=== PATIENT | female | born 1975 | race Caucasian/White ===

== ENCOUNTER 2024-02-07 12:44 | Inpatient (IN) ==
--- NOTE | 2024-02-07 13:26 | Emergency Department Note ---
History of Present Illness General Chief complaint: Shortness of Breath/Dyspnea Stated complaint: SOB, CANCER DOC TOLD HER TO COME Time Seen by Provider: 02/07/24 13:11 History of Present Illness This is a 48-year-old female with history of stage IV lung cancer diagnosed a few months ago that presents to the emergency department via private vehicle with complaints of "dyspnea". She was referred by her oncology office. The patient notes that over the past 2 weeks she has had significant exertional dyspnea. Minimal to none at rest. She states that she follows with Dr. Muñoz, with [facility] [address] here in [place]. She currently is undergoing chemotherapy, last of which was a few weeks ago. She denies any chest pain. No fevers or chills. She notes chronic cough but nothing new. No hemoptysis. She also notes some mild swelling of the face and some increased tearing from the eyes. No purulence. Home Medications Medication Instructions Recorded Confirmed Type albuterol sulfate 90 mcg/actuation 2 inh inhalation Q4H PRN SOB 02/07/24 02/07/24 History aerosol inhaler fluticasone fur. 200 mcg-umeclid 1 inh inhalation QAM 02/07/24 02/07/24 History 62.5 mcg-vilant 25 mcg inhalat.powder (Trelegy Ellipta) folic acid 1 mg tablet 1 mg PO DAILY 02/07/24 02/07/24 History lamotrigine 100 mg tablet 100 mg PO BID 02/07/24 02/07/24 History olanzapine 20 mg-samidorphan 10 mg 1 tab PO HS 02/07/24 02/07/24 History tablet (Lybalvi) pantoprazole 40 mg tablet,delayed 40 mg PO DAILY 02/07/24 02/07/24 History release Allergies Allergy/AdvReac Type Severity Reaction Status Date / Time No Known Allergies Allergy Unverified 04/14/11 19:38 Past Med/Surg History Problem List (Updated 02/07/24 @ 21:09 by Ricardo Werner PA-C) Pneumonia (Acute) Sinus tachycardia (Acute) Symptomatic anemia (Acute) Tobacco use GERD (gastroesophageal reflux disease) Bipolar 1 disorder HLD (hyperlipidemia) Metastatic primary lung cancer (Acute) Hypokalemia (Acute) Pancytopenia (Acute) Surgical History (Updated 02/07/24 @ 15:46 by Kirsty Guevara PA-C) History of cholecystectomy History of bronchoscopy 11/28/23 Family History (Updated 02/07/24 @ 15:47 by Kirsty Guevara PA-C) Grandmother (Maternal) Breast cancer Other Dyslipidemia Hypertension Social History Smoking Status: Former smoker Feels Safe at Home: Yes Review of Systems A total of 10 systems reviewed and were otherwise negative Physical Exam Vital Signs Vital Signs - 24 hr 02/07/24 12:46 02/07/24 13:08 02/07/24 13:24 Temperature 36.5 C Temperature Source Temporal Artery Scan Pulse Rate 132 H 117 H 115 H Pulse Rate from SpO2 Sensor 115 H Pulse Rhythm Regular Pulse Strength Normal Respiratory Rate 20 17 Respiratory Effort / Characteristics Non-Labored Spontaneous Respiratory Depth Normal Blood Pressure 115/63 Blood Pressure Mean 80 Blood Pressure Position Sitting Pulse Oximetry 94 94 Oxygen Delivery Method Room Air Sepsis Recent Fever Within 48 Hours No Sepsis New/Unexplained Change in Mental Status N/A Sepsis Action Taken by Nursing No Action Required 02/07/24 13:27 02/07/24 13:30 02/07/24 13:30 Temperature Temperature Source Pulse Rate 113 H Pulse Rate from SpO2 Sensor Pulse Rhythm Regular Pulse Strength Respiratory Rate Respiratory Effort / Characteristics Respiratory Depth Blood Pressure 111/70 Blood Pressure Mean 88 Blood Pressure Position Pulse Oximetry 94 93 Oxygen Delivery Method Room Air Room Air Sepsis Recent Fever Within 48 Hours Sepsis New/Unexplained Change in Mental Status Sepsis Action Taken by Nursing 02/07/24 13:39 02/07/24 13:48 02/07/24 13:57 Temperature Temperature Source Pulse Rate 116 H 109 H 113 H Pulse Rate from SpO2 Sensor 116 H 109 H 113 H Pulse Rhythm Pulse Strength Respiratory Rate 19 24 24 Respiratory Effort / Characteristics Respiratory Depth Blood Pressure Blood Pressure Mean Blood Pressure Position Pulse Oximetry 93 92 93 Oxygen Delivery Method Sepsis Recent Fever Within 48 Hours Sepsis New/Unexplained Change in Mental Status Sepsis Action Taken by Nursing 02/07/24 14:03 02/07/24 15:03 Temperature Temperature Source Pulse Rate 109 H Pulse Rate from SpO2 Sensor 110 H 111 H Pulse Rhythm Pulse Strength Respiratory Rate 17 Respiratory Effort / Characteristics Respiratory Depth Blood Pressure Blood Pressure Mean Blood Pressure Position Pulse Oximetry 94 93 Oxygen Delivery Method Sepsis Recent Fever Within 48 Hours Sepsis New/Unexplained Change in Mental Status Sepsis Action Taken by Nursing VITAL SIGNS - Vital signs and nursing notes were reviewed. Tachycardic, otherwise stable and afebrile. GENERAL -48-year-old female appearing her stated age who is in no acute distress. Communicates well with provider and answers questions appropriately. SKIN - Without rashes. No meningeal or petechial rash. Mild edema to the face. HEAD - NC/AT. EYES - PERRL with EOMI bilaterally. Sclera anicteric. EARS - No deformities of external structures noted on gross examination bilaterally. External auditory canals without discharge or otorrhea. Tympanic membranes pearly rayo without retraction or bulging. No fluid or purulent material visualized behind the TM. Handle of malleus, umbo, cone of light, pars tensa/flaccid all easily visualized. NOSE - Midline and without cyanosis. No epistaxis or purulent drainage noted. Septum midline without deviation or septal hematoma noted. MOUTH/OROPHARYNX - Without perioral cyanosis. Buccal mucosa pink and moist and without leukoplakia. Tongue midline with equal elevation of palate bilaterally. No tonsillar hypertrophy, erythema, or exudates noted. Good dentition noted. NECK - Neck with FROM. Supple to palpation. No lymphadenopathy noted. No nuchal rigidity. LUNGS -no wheezes or crackles. Mild decreased lung sounds in the basal regions. CARDIAC - Tachycardic ABDOMEN - Abdominal contour normal without pulsations or visible masses. BS normoactive all four quadrants. No tenderness, palpable masses, hepatosplenomegaly, or ascites noted. EXTREMITIES - No clubbing or peripheral cyanosis. +5/5 strength noted in UE/LE bilaterally. NEUROLOGIC - Cranial nerves grossly intact. PSYCH -alert, oriented Course Administered Medications Discontinued Medications Azithromycin (Azithromycin 250 Mg Tab) 500 mg PO NOW ONE Stop: 02/07/24 16:16 Last Admin: 02/07/24 16:56 Dose: 500 mg Documented By: ERI Cefepime HCl (Maxipime 2000mg) 2,000 mg in 20 mls @ 5 mls/min IV NOW STA; Protocol Stop: 02/07/24 14:38 Last Admin: 02/07/24 15:13 Dose: 5 mls/min Documented By: ERI Ioversol (Optiray 320 125ml) 119 ml IV ONCE ONE Stop: 02/07/24 14:13 Last Admin: 02/07/24 14:12 Dose: 119 ml Documented By: EDK Potassium Chloride (Potassium Chloride Crtab 20 Meq Tabcr) 40 meq PO NOW STA Stop: 02/07/24 16:16 Last Admin: 02/07/24 16:55 Dose: 40 meq Documented By: ERI Medical Decision Making Laboratory Data 02/07/24 12:52 02/07/24 12:52 Lab Results 02/07/24 02/07/24 02/07/24 Range/Units 12:52 13:30 13:35 WBC 2.89 L (4.8-10.8) K/ul RBC 2.17 L (4.20-5.40) M/uL Hgb 7.2 L (12.0-16.0) g/dl Hct 22.0 L (37.0-47.0) % MCV 101.4 H (80.0-100.0) fL MCH 33.2 (25.0-34.0) pg MCHC 32.7 (32.0-36.0) g/dL RDW Std Deviation 57.0 H (36.4-46.3) fL RDW Coeff of Connor 16.0 H (11.5-14.5) % Plt Count 86 L (130-400) K/uL MPV 11.1 (9.4-12.4) fL Immature Gran % (Auto) 0.7 % Neut % (Auto) 21.8 % Lymph % (Auto) 41.9 % Person % (Auto) 23.9 % Eos % (Auto) 11.4 % Baso % (Auto) 0.3 % Neut # (Auto) 0.63 L* (1.40-6.50) K/uL Lymph # (Auto) 1.21 (1.20-3.40) K/uL Person # (Auto) 0.69 H (0.11-0.59) K/uL Eos # (Auto) 0.33 (0.00-0.50) K/uL Baso # (Auto) 0.01 (0.00-0.20) K/uL Immature Gran # (Auto) 0.02 (0.01-0.20) K/uL Polychromasia 1+ Anisocytosis Present PT 11.7 (9.0-12.0) Seconds INR 1.1 (0.9-1.1) APTT 26 (21-31) Seconds PTT Ratio 1.0 Sodium 137 (136-145) mmol/L Potassium 3.4 L (3.5-5.1) mmol/L Chloride 97 L (98-107) mmol/L Carbon Dioxide 30 (21-32) mmol/L Anion Gap 10 (3-11) BUN 8 (6-23) mg/dl Creatinine 1.06 (0.6-1.2) mg/dl Est Cr Clr Drug Dosing 56.8 ml/min eGFR 65.20 BUN/Creatinine Ratio 7.5 L (10-20) Glucose 123 H (70-99(Fasting)) mg/dl Lactate 1.3 (0.4-2.0) mmol/L Calcium 9.0 (8.6-10.3) mg/dl Magnesium 1.8 (1.7-2.4) mg/dl Total Bilirubin 0.7 (0.2-1.0) mg/dl AST 31 (13-39) U/L ALT 32 (7-52) U/L Alkaline Phosphatase 89 (34-104) U/L Troponin I High Sens 9.7 (0-14) pg/ml Total Protein 6.9 (6.0-8.3) gm/dl Albumin 3.5 (3.4-5.0) gm/dl Globulin 3.4 (2.5-4.0) gm/dl Albumin/Globulin Ratio 1.0 (0.9-2) Procalcitonin 25.30 H (0-0.5) ng/ml TSH 3.254 (0.300-4.500) uIu/ml HCG, Qual Negative (Negative) Adenovirus (PCR) Not Detected (NotDetected) B. pertussis DNA (PCR) Not Detected (NotDetected) B.parapertussis DNA PCR Not Detected (NotDetected) C. pneumoniae DNA (PCR) Not Detected (NotDetected) Coronavirus OC43 (PCR) Not Detected (NotDetected) Coronavirus HKU1 (PCR) Not Detected (NotDetected) Coronavirus 229E (PCR) Not Detected (NotDetected) SARS-CoV-2 (PCR) Not Detected (NotDetected) Coronavirus NL63 (PCR) Not Detected (NotDetected) Human Metapneumovir PCR Not Detected (NotDetected) Influenza Type A (PCR) Not Detected (NotDetected) Influenza Type B (PCR) Not Detected (NotDetected) M. pneumoniae (PCR) Not Detected (NotDetected) Parainfluenza 1 (PCR) Not Detected (NotDetected) Parainfluenza 2 (PCR) Not Detected (NotDetected) Parainfluenza 3 (PCR) Not Detected (NotDetected) Parainfluenza 4 (PCR) Not Detected (NotDetected) RSV (PCR) Not Detected (NotDetected) Entero/Rhino (PCR) Not Detected (NotDetected) Blood Type Blood Type Recheck Antibody Screen Crossmatch 02/07/24 02/07/24 Range/Units 14:56 15:43 WBC (4.8-10.8) K/ul RBC (4.20-5.40) M/uL Hgb (12.0-16.0) g/dl Hct (37.0-47.0) % MCV (80.0-100.0) fL MCH (25.0-34.0) pg MCHC (32.0-36.0) g/dL RDW Std Deviation (36.4-46.3) fL RDW Coeff of Connor (11.5-14.5) % Plt Count (130-400) K/uL MPV (9.4-12.4) fL Immature Gran % (Auto) % Neut % (Auto) % Lymph % (Auto) % Person % (Auto) % Eos % (Auto) % Baso % (Auto) % Neut # (Auto) (1.40-6.50) K/uL Lymph # (Auto) (1.20-3.40) K/uL Person # (Auto) (0.11-0.59) K/uL Eos # (Auto) (0.00-0.50) K/uL Baso # (Auto) (0.00-0.20) K/uL Immature Gran # (Auto) (0.01-0.20) K/uL Polychromasia Anisocytosis PT (9.0-12.0) Seconds INR (0.9-1.1) APTT (21-31) Seconds PTT Ratio Sodium (136-145) mmol/L Potassium (3.5-5.1) mmol/L Chloride (98-107) mmol/L Carbon Dioxide (21-32) mmol/L Anion Gap (3-11) BUN (6-23) mg/dl Creatinine (0.6-1.2) mg/dl Est Cr Clr Drug Dosing ml/min eGFR BUN/Creatinine Ratio (10-20) Glucose (70-99(Fasting)) mg/dl Lactate (0.4-2.0) mmol/L Calcium (8.6-10.3) mg/dl Magnesium (1.7-2.4) mg/dl Total Bilirubin (0.2-1.0) mg/dl AST (13-39) U/L ALT (7-52) U/L Alkaline Phosphatase (34-104) U/L Troponin I High Sens (0-14) pg/ml Total Protein (6.0-8.3) gm/dl Albumin (3.4-5.0) gm/dl Globulin (2.5-4.0) gm/dl Albumin/Globulin Ratio (0.9-2) Procalcitonin (0-0.5) ng/ml TSH (0.300-4.500) uIu/ml HCG, Qual (Negative) Adenovirus (PCR) (NotDetected) B. pertussis DNA (PCR) (NotDetected) B.parapertussis DNA PCR (NotDetected) C. pneumoniae DNA (PCR) (NotDetected) Coronavirus OC43 (PCR) (NotDetected) Coronavirus HKU1 (PCR) (NotDetected) Coronavirus 229E (PCR) (NotDetected) SARS-CoV-2 (PCR) (NotDetected) Coronavirus NL63 (PCR) (NotDetected) Human Metapneumovir PCR (NotDetected) Influenza Type A (PCR) (NotDetected) Influenza Type B (PCR) (NotDetected) M. pneumoniae (PCR) (NotDetected) Parainfluenza 1 (PCR) (NotDetected) Parainfluenza 2 (PCR) (NotDetected) Parainfluenza 3 (PCR) (NotDetected) Parainfluenza 4 (PCR) (NotDetected) RSV (PCR) (NotDetected) Entero/Rhino (PCR) (NotDetected) Blood Type B Negative Blood Type Recheck B Negative Antibody Screen NEGATIVE Crossmatch See Detail Imaging Data Radiologist's Impression: Chest CTA 02/07/24 13:22 CT ANGIOGRAPHY OF THE CHEST, PULMONARY EMBOLUS PROTOCOL CLINICAL HISTORY: stage 4 lung ca, dyspnea, tachcyardia COMPARISON STUDY: No previous studies for comparison. TECHNIQUE: Following IV administration of 119 mL of Optiray, helical axial images of the chest were obtained utilizing the pulmonary embolus protocol. Maximal intensity projections and sagittal and coronal reformats were viewed on an independent 3D workstation. IV contrast was administered without complication. Automated exposure control was utilized for the study. A dose lowering technique was utilized adhering to the principles of ALARA. CT DOSE: 420.01 mGy.cm FINDINGS: No pulmonary emboli are identified. There is no thoracic aortic dissection. Size of the heart is normal. There is no pericardial effusion. Multiple enlarged mediastinal and bilateral hilar lymph nodes are present. A subcarinal lymph node on image 107 of 213 measures 3.2 x 2.3 cm. A right paratracheal lymph node on image 138 measures 2.4 x 2.1 cm. There is no pneumothorax or pleural effusion. A spiculated 2.8 x 2.2 cm right upper lobe nodule on image 155 is present. There are moderate alveolar opacities within the left upper and left lower lobes. There are mild alveolar opacities within the right lung. Several ill-defined nodular densities are present, including an 8 mm right upper lobe nodule image 125. No suspicious lesions within the bony thorax are identified. A lucent lesion within the T8 vertebral body favors a hemangioma. Several hypodense ill-defined hepatic lesions measure up to 3.3 cm. IMPRESSION: 1. No pulmonary emboli identified. 2. 2.8 x 2.2 cm spiculated right upper lobe nodule likely representing the primary tumor. 3. Annie and hepatic metastases, as described above. 4. Bilateral alveolar opacities, greater within the left lung. These are nonspecific although favor pneumonia. Treatment related pneumonitis could appear similar. 5. Multiple ill-defined nodules within the lungs suggestive of metastases. ACT 112: Negative or not required by law. Electronically signed by: Aman Parks M.D. 02/07/2024 2:43 PM MDM Narrative Patient was seen and evaluated as above in room C11b. Review was performed of triage nursing notes and vital signs. Patient presents for evaluation of ongoing dyspnea x 2 weeks in the setting of known stage IV lung cancer currently undergoing chemotherapy treatment. She denies any fever. IV access with established. Labs are drawn. EKG was performed. This reveals sinus tachycardia with a rate of 119 bpm. QTc 438. QRS 78. No ST elevation on this rhythm tracing. CTA of the chest was performed. This reveals no PE. Lung tumor noted. Annie and hepatic metastasis noted. Bilateral alveolar opacities potentially indicating pneumonia. Laboratory studies here reveal pancytopenia with hemoglobin at 7.2. I do suspect symptomatic anemia. Troponin within normal range. Procalcitonin elevated at 25.3. Lactate is normal. Bio fire panel negative. I did cover with IV cefepime. Blood culture pending. Patient is also neutropenic. I did speak with Dr. Espinosa, on-call for the patient's oncologist. I spoke to him at 2:50 PM. We discussed management and blood transfusion. He noted that leukoreduced packed cells are fine and these were ordered. Appropriate consent forms were completed. The patient is in need of hospitalization noting the findings today. Case was discussed with the hospitalist service. Please refer to further documentation regarding her stay. GCS: 15 In the evaluation and treatment of this patient the following differential diagnoses were entertained: Symptomatic anemia, electrolyte disturbance, dehydration, PE, pneumonia, pneumothorax, among others. Impression & Plan Pancytopenia, Symptomatic anemia, Sinus tachycardia, Pneumonia, Hypokalemia, Metastatic primary lung cancer Discharge Plan Visit Data Chief Complaint: Shortness of Breath/Dyspnea Stated Complaint: SOB, CANCER DOC TOLD HER TO COME ED Provider: Micah Soliman ED Midlevel Provider: Ricardo Werner Discharge Problem: Pancytopenia, Symptomatic anemia, Sinus tachycardia, Pneumonia, Hypokalemia, Metastatic primary lung cancer Patient Disposition: Admitted As Inpatient Condition: Fair Discharge Instructions Interventions: ED Discharge Assessment Last Done: 02/07/24 19:39
[2024-02-07 13:56] LABS: Albumin Level 3.5 gm/dl (3.4-5.0); BUN Creatinine Ratio 7.5 (10-20); Bilirubin,Total 0.7 mg/dl (0.2-1.0); Creatinine Clr Calc Pharmacy 56.8 ml/min; Globulin 3.4 gm/dl (2.5-4.0); Magnesium 1.8 mg/dl (1.7-2.4); Potassium 3.4 mmol/L (3.5-5.1); Total Protein 6.9 gm/dl (6.0-8.3)
[2024-02-07 14:03] LABS: Troponin I High Sensitivity 9.7 pg/ml (0-14)
[2024-02-07 14:07] LABS: INR 1.1 (0.9-1.1); Partial Thromboplastin Time 26 Seconds (21-31); Prothrombin Time 11.7 Seconds (9.0-12.0)
[2024-02-07 14:12] LABS: Thyroid Stimulating Hormone 3.254 uIu/ml (0.300-4.500)
[2024-02-07] MEDS: OPTIRAY 320 125ml IV ONE (14:12)
[2024-02-07 14:20] LABS: Hemoglobin 7.2 g/dl (12.0-16.0); Mean Corpuscular Hemoglobin 33.2 pg (25.0-34.0); Mean Corpuscular Hgb Conc 32.7 g/dL (32.0-36.0); Mean Corpuscular Volume 101.4 fL (80.0-100.0); Mean Platelet Volume 11.1 fL (9.4-12.4); Platelet Count 86 K/uL (130-400); Red Blood Count 2.17 M/uL (4.20-5.40); White Blood Count 2.89 K/ul (4.8-10.8)
[2024-02-07 14:21] LABS: Anisocytosis Present; Polychromasia 1+
[2024-02-07 14:24] LABS: Basophils # (auto) 0.01 K/uL (0.00-0.20); Basophils % (auto) 0.3 %; Eosinophils # (auto) 0.33 K/uL (0.00-0.50); Eosinophils % (auto) 11.4 %; Immature Granulocytes # (auto) 0.02 K/uL (0.01-0.20); Immature Granulocytes % (auto) 0.7 %; Lymphocytes # (auto) 1.21 K/uL (1.20-3.40); Lymphocytes % (auto) 41.9 %; Monocytes # (auto) 0.69 K/uL (0.11-0.59); Monocytes % (auto) 23.9 %; Neutrophils # (auto) 0.63 K/uL (1.40-6.50); Neutrophils % (auto) 21.8 %
[2024-02-07 14:27] LABS: Pregnancy Test, Serum Negative (Negative)
--- NOTE | 2024-02-07 14:45 | CT Scan Report ---
CT ANGIOGRAPHY OF THE CHEST, PULMONARY EMBOLUS PROTOCOL CLINICAL HISTORY: stage 4 lung ca, dyspnea, tachcyardia COMPARISON STUDY: No previous studies for comparison. TECHNIQUE: Following IV administration of 119 mL of Optiray, helical axial images of the chest were o btained utilizing the pulmonary embolus protocol. Maximal intensity projections and sagittal and cor onal reformats were viewed on an independent 3D workstation. IV contrast was administered without co mplication. Automated exposure control was utilized for the study. A dose lowering technique was ut ilized adhering to the principles of ALARA. CT DOSE: 420.01 mGy.cm FINDINGS: No pulmonary emboli are identified. There is no thoracic aortic dissection. Size of the he art is normal. There is no pericardial effusion. Multiple enlarged mediastinal and bilateral hilar ly mph nodes are present. A subcarinal lymph node on image 107 of 213 measures 3.2 x 2.3 cm. A right par atracheal lymph node on image 138 measures 2.4 x 2.1 cm. There is no pneumothorax or pleural effusion . A spiculated 2.8 x 2.2 cm right upper lobe nodule on image 155 is present. There are moderate alveo lar opacities within the left upper and left lower lobes. There are mild alveolar opacities within th e right lung. Several ill-defined nodular densities are present, including an 8 mm right upper lobe n odule image 125. No suspicious lesions within the bony thorax are identified. A lucent lesion within the T8 vertebral body favors a hemangioma. Several hypodense ill-defined hepatic lesions measure up t o 3.3 cm. IMPRESSION: 1. No pulmonary emboli identified. 2. 2.8 x 2.2 cm spiculated right upper lobe nodule likely representing the primary tumor. 3. Annie and hepatic metastases, as described above. 4. Bilateral alveolar opacities, greater within the left lung. These are nonspecific although favor p neumonia. Treatment related pneumonitis could appear similar. 5. Multiple ill-defined nodules within the lungs suggestive of metastases. ACT 112: Negative or not required by law. Electronically signed by: Aman Parks M.D. 02/07/2024 2:43 PM
[2024-02-07] MEDS ORDERED: SODIUM CHLORIDE 0.9% 100 ML IV PRN (14:54)
[2024-02-07] MEDS ORDERED: SODIUM CHLORIDE 0.9% 50 ML IV PRN (14:54)
[2024-02-07 15:00] LABS: Adenovirus PCR Not Detected (NotDetected); Bordetella parapertussis PCR Not Detected (NotDetected); Bordetella pertussis PCR Not Detected (NotDetected); Chlamydia pneumoniae PCR Not Detected (NotDetected); Coronavirus 229E PCR Not Detected (NotDetected); Coronavirus CoV-2 (COVID19)PCR Not Detected (NotDetected); Coronavirus HKU1 PCR Not Detected (NotDetected); Coronavirus NL63 PCR Not Detected (NotDetected); Coronavirus OC43PCR Not Detected (NotDetected); Human Metapneumovirus PCR Not Detected (NotDetected); Influenza A PCR Not Detected (NotDetected); Influenza B PCR Not Detected (NotDetected); Mycoplasma pneumoniae PCR Not Detected (NotDetected); Parainfluenza Virus 1 PCR Not Detected (NotDetected); Parainfluenza Virus 2 PCR Not Detected (NotDetected); Parainfluenza Virus 3 PCR Not Detected (NotDetected); Parainfluenza Virus 4 PCR Not Detected (NotDetected); Respiratory Syncytial VirusPCR Not Detected (NotDetected); Rhinovirus/Enterovirus PCR Not Detected (NotDetected)
--- NOTE | 2024-02-07 15:03 | Emergency Department Note ---
ED Visit Note I was consulted by the Advanced Practice Provider. The patient's case was discussed at length. I personally made/approved the management plan and take responsibility for the patient management. I performed a substantive portion of the visit. This includes the aspects of: The patient was found to have pneumonia by CT imaging. She was quite anemic in fact, pancytopenic. She was dyspneic and tachycardic. The patient is going to be hospitalized for her findings, the on-call hospitalist has been consulted. Blood has been ordered for transfusion. Antibiotics have been ordered for the pneumonia. .
[2024-02-07] MEDS: CEFEPIME 2000MG 2,000 MG/20 ML SYR IV STA (15:13)
--- NOTE | 2024-02-07 15:30 | History & Physical Report ---
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 Denies fever/chills, increased cough. Current treatment Alimta, carboplatin, Keytruda. Last chemo treatment on 01/24/24 Today in ER: Afebrile, P: 132, R: 20, BP 115/63, 94% on room air. Pulse trended down into low 100s. WBC: 2.8, H/H: 7.2/22, PLT: 86, Moderate neutropenia Lactate: 1.3, procalcitonin: 25, negative Bio[employer] respiratory panel CTA chest: No PE. 2.8 x 2.2 cm spiculated right upper lobe nodule likely representing the primary tumor.Annie and hepatic metastases. Bilateral alveolar opacities, greater within the left lung. These are nonspecific although favor pneumonia. Treatment related pneumonitis could appear similar. Multiple ill- defined nodules within the lungs suggestive of metastases. EKG: Sinus tachycardia, rate 119, Q waves in septal leads, no prior EKG for review at this time Per outpatient labs has had downtrending Hgb. 01/13/2024: WBC: 2.4, H/H: /34, PLT: 80 01/23/2024: WBC: 2.9, H/H: 9.9/31, PLT: 261 Iron: 42, TIBC: 181, transferrin: 23, ferritin: 1125, vitamin B-12: 612, folic acid >20 In ER given cefepime ER provider spoke to [facility] oncology who had recommended 1 unit PRBC transf usion Was typed and crossed for 2 units and 1 unit PRBC started in ER Repeat H&H post transfusion Blood cultures pending Continue cefepime. Add azithromycin Supplemental oxygen as needed Continue home inhalers Neutropenic precautions CBC, BMP in am (6) Hypokalemia: Plan: K: 3.4. Magnesium: 1.8 Replace potassium and monitor (7) HLD (hyperlipidemia): Plan: Continue rosuvastatin (8) Bipolar 1 disorder: Plan: Continue lamotrigine, Lybalvi (9) GERD (gastroesophageal reflux disease): Plan: Continue PPI (10) Tobacco use: Plan: Attempting to quit Denies nicotine patch DVT Prophylaxis SCDs Admit telemetry Full Code as per discussion with pt Follows with Dr Naidu for routine care Pt was seen and care coordinated with Dr Olsen. See addendum I spent a total of 62 minutes reviewing notes, outpatient records, labs, medication, coordinating, documenting and providing care for this patient excluding time spent in the performance of separately billed services. 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 States increased SOB over past 3 days. Chronic cough but no worsening and reports is non-productive. Denies congestion, fever/chills Denies noted bleeding. Denies ill contacts. Last chemo on 01/24/24. Denies diaphoresis, N/V/D/C, QUINTANILLA, dizziness, syncope, CP, palpitations, hemoptysis, sore throat, rhinorrhea, abdominal pain, extremity weakness, extremity edema, rashes, urinary symptoms. Allergies Allergy/AdvReac Type Severity Reaction Status Date / Time No Known Allergies Allergy Unverified 04/14/11 19:38 Home Medications Medication Instructions Recorded Confirmed Type albuterol sulfate 90 mcg/actuation 2 inh inhalation Q4H PRN SOB 02/07/24 02/07/24 History aerosol inhaler fluticasone fur. 200 mcg-umeclid 1 inh inhalation QAM 02/07/24 02/07/24 History 62.5 mcg-vilant 25 mcg inhalat.powder (Trelegy Ellipta) folic acid 1 mg tablet 1 mg PO DAILY 02/07/24 02/07/24 History lamotrigine 100 mg tablet 100 mg PO BID 02/07/24 02/07/24 History olanzapine 20 mg-samidorphan 10 mg 1 tab PO HS 02/07/24 02/07/24 History tablet (Lybalvi) pantoprazole 40 mg tablet,delayed 40 mg PO DAILY 02/07/24 02/07/24 History release Past Med/Surg History Problem List (Updated 02/07/24 @ 19:15 by Maggi Olsen MD) Pneumonia Sinus tachycardia Symptomatic anemia Tobacco use GERD (gastroesophageal reflux disease) Bipolar 1 disorder HLD (hyperlipidemia) Metastatic primary lung cancer Hypokalemia Pancytopenia Surgical History (Updated 02/07/24 @ 15:46 by Kirsty Guevara PA-C) History of cholecystectomy History of bronchoscopy 11/28/23 Family History (Updated 02/07/24 @ 15:47 by Kirsty Guevara PA-C) Grandmother (Maternal) Breast cancer Other Dyslipidemia Hypertension Social History Smoking Status: Former smoker Feels Safe at Home: Yes Review of Systems Review of Systems: All systems reviewed & are unremarkable except as noted in HPI & below Physical Exam Physical Exam: PE per Dr Olsen Results & Data Results & Data Vital Signs (Past 12 Hours) Vital Signs Temp Pulse Resp BP Pulse Ox O2 Del Method 02/07/24 15:03 93 02/07/24 14:03 109 H 17 94 02/07/24 13:57 113 H 24 93 02/07/24 13:48 109 H 24 92 02/07/24 13:39 116 H 19 93 02/07/24 13:30 113 H 93 Room Air 02/07/24 13:30 94 Room Air 02/07/24 13:27 111/70 02/07/24 13:24 115 H 17 94 02/07/24 13:08 117 H 02/07/24 12:46 36.5 C 132 H 20 115/63 94 Room Air Laboratory Results Short CBC 02/07/24 Range/Units 12:52 WBC 2.89 L (4.8-10.8) K/ul Hgb 7.2 L (12.0-16.0) g/dl Hct 22.0 L (37.0-47.0) % Plt Count 86 L (130-400) K/uL BMP 02/07/24 12:52 Sodium 137 Potassium 3.4 L Chloride 97 L Carbon Dioxide 30 BUN 8 Creatinine 1.06 Glucose 123 H Calcium 9.0 Liver Function 02/07/24 Range/Units 12:52 Total Bilirubin 0.7 (0.2-1.0) mg/dl AST 31 (13-39) U/L ALT 32 (7-52) U/L Alkaline Phosphatase 89 (34-104) U/L Albumin 3.5 (3.4-5.0) gm/dl Diagnostic Findings Chest CTA 02/07/24 13:22 CT ANGIOGRAPHY OF THE CHEST, PULMONARY EMBOLUS PROTOCOL CLINICAL HISTORY: stage 4 lung ca, dyspnea, tachcyardia COMPARISON STUDY: No previous studies for comparison. TECHNIQUE: Following IV administration of 119 mL of Optiray, helical axial images of the chest were obtained utilizing the pulmonary embolus protocol. Maximal intensity projections and sagittal and coronal reformats were viewed on an independent 3D workstation. IV contrast was administered without complication. Automated exposure control was utilized for the study. A dose lowering technique was utilized adhering to the principles of ALARA. CT DOSE: 420.01 mGy.cm FINDINGS: No pulmonary emboli are identified. There is no thoracic aortic dissection. Size of the heart is normal. There is no pericardial effusion. Multiple enlarged mediastinal and bilateral hilar lymph nodes are present. A subcarinal lymph node on image 107 of 213 measures 3.2 x 2.3 cm. A right paratracheal lymph node on image 138 measures 2.4 x 2.1 cm. There is no pneumothorax or pleural effusion. A spiculated 2.8 x 2.2 cm right upper lobe nodule on image 155 is present. There are moderate alveolar opacities within the left upper and left lower lobes. There are mild alveolar opacities within the right lung. Several ill-defined nodular densities are present, including an 8 mm right upper lobe nodule image 125. No suspicious lesions within the bony thorax are identified. A lucent lesion within the T8 vertebral body favors a hem angioma. Several hypodense ill-defined hepatic lesions measure up to 3.3 cm. IMPRESSION: 1. No pulmonary emboli identified. 2. 2.8 x 2.2 cm spiculated right upper lobe nodule likely representing the primary tumor. 3. Annie and hepatic metastases, as described above. 4. Bilateral alveolar opacities, greater within the left lung. These are nonspecific although favor pneumonia. Treatment related pneumonitis could appear similar. 5. Multiple ill-defined nodules within the lungs suggestive of metastases. ACT 112: Negative or not required by law. Electronically signed by: Aman Parks M.D. 02/07/2024 2:43 PM Supervising Physician Co-Signing Physician Notes Patient seen and examined Presents with worsening SOB. Reports chronic dry cough unchanged Denied fevers/chills General: In no acute distress Eyes: PERRL, conjunctivae normal, not pale, anicteric sclerae, EOM intact bilaterally ENMT: External ear and nose normal, oropharynx normal Respiratory: Normal respiratory effort, no respiratory distress, diminished breath sounds Cardiovascular: Tachycardic S1 S2 Gastrointestinal (Abdomen): Abdomen is not distended, soft, non-tender to palpation, no guarding, no palpable hepatosplenomegaly, normal bowel sounds Musculoskeletal: No pedal edema Neurologic: Alert and oriented x 3, No focal weakness, sensation grossly intact Psychiatric: Euthymic affect Labs notable for pancytopenia, WBC 2.89, Hb 7.2, Plt 86, K 3.4, procal 25 CT PE was negative for PE but showed b/l alveolar opacities and her primary tumor Pneumonia Continue IV cefepime Give Azithromycin Replete hypokalemia Transfuse 1 PRBC for symptomatic anemia I spent a total of 45 minutes coordinating, documenting and providing care for this patient excluding time spent in performance of separately billed services
[2024-02-07] MEDS: POTASSIUM CHLORIDE CRTAB 20 MEQ TABCR PO STA (16:55)
[2024-02-07] MEDS: AZITHROMYCIN 250 MG TAB PO ONE (16:56)
[2024-02-07] MEDS ORDERED: ALBUTEROL HFA 8 GM INHALER INH PRN (19:38)
[2024-02-07] MEDS ORDERED: ONDANSETRON INJ 2 MG/ML 2 ML VIAL IV PRN (19:38)
[2024-02-07] MEDS ORDERED: POLYETHYLENE (MIRALAX) 17 GM PACK PO PRN (19:38)
[2024-02-07] MEDS: lamoTRIgine 100 MG TAB PO SCH (21:25)
[2024-02-07] MEDS: ACETAMINOPHEN 325 MG TAB PO PRN (21:27)
--- NOTE | 2024-02-07 21:32 | Electrocardiogram Report ---
Test Reason : Blood Pressure : */* mmHG Vent. Rate : 119 BPM Atrial Rate : 119 BPM P-R Int : 138 ms QRS Dur : 78 ms QT Int : 312 ms P-R-T Axes : 59 35 34 degrees QTcB Int : 438 ms Sinus tachycardia Low voltage QRS No previous ECGs available Confirmed by Charly Lomeli ([id number]) on 02/07/2024 9:31:44 PM Referred By: Confirmed By: Charly Lomeli
[2024-02-08 00:08] LABS: Hematocrit (blood only) 26.2 % (37.0-47.0); Hemoglobin 8.8 g/dl (12.0-16.0)
[2024-02-08] MEDS: CEFEPIME 2000MG 2,000 MG/20 ML SYR IV SCH ×2 (02:55→13:03)
--- OUTSIDE RECORDS SUMMARY | 2024-02-08 04:25 | External Medical Summary | Summary of Care ---
Author Name Unknown Organization [facility] Address [address] [place] [address] Phone [phone] Care Team Providers Care Director Of Food And Nutrition Name Role Phone Renetta Naidu DO Primary Care Provider [phone] Reason for Visit * Reason Comments Chemotherapy C2/D1 - Keytruda, Al imta, Carboplatin * Episode Based Medications (Routine) - Authorized Specialty Diagnoses / Procedures Referred By Contac t Referred To Contact Diagnoses Encounter for antineoplastic chemotherapy Malignant neoplasm of upper lobe of right lung (HCC) Metastasis to mediastinal lymph node (HCC) Procedures [place] CARBOPLATIN INJECTION [place] INJ. PEMETREXED NOS 10MG [place] FOSAPREPITANT INJECTION [place] INJ PEMBROLIZUMAB Yogi Muñoz MD [address] [place] [address] [place] [address] Phone: tel: fax: Hematology[place] [address] Phone: tel: fax: Referral ID Status Reason Start Date Expiration Date V isits Requested Visits Authorized [id number] Authorized 12/06/2023 02/17/2099 [id number] Encounter Details Date Type Department Care Team (Latest Contact Info) Description 01/03/2024 9:30 AM EST Hem/Onc Treatment Hematology/[place]colog [place] [address], [address] [phone] Amparo, Chair [address] On[address] [place], [place] [address] Encounter for antineoplastic chemotherapy*; Malignant neoplasm of upper lobe of right lung (HCC); Metastasis to mediastinal lymph node (HCC) Allergies No known active allergiesdocumented as of this encounter (statuses as of 01/26/2024) Medications lamoTRIgine 100 MG Oral Tablet (LaMICtal) TAKE 1 TABLET BY MOUTH 2 TIME(S) PER DAY 1 Active Lybalvi 20-10 MG Oral Tablet ONE TABLET BY MOUTH AT BEDTIME FOR MOOD 3 Active Trelegy Ellipta 200-62.5-25 MCG/ACT Aerosol Powder Breath Activated (Fluticasone-Um eclidinium-Tiki nterol)Indicati ons: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 30 Blister Dosing Unit 5 4 Active Albuterol Sulfate HFA 108 (90 Base) MCG/ACT Inhalation Aerosol SolutionIndicat ions:Tobacco use,SOB (shortness of breath) Inhale 2 Puffs by mouth every 4 hours as needed for Wheezing. 18 g 1 4 Active Pantoprazole Sodium 40 MG Oral Tablet Delayed Release (Protonix)Indic ations:Dysphagi a, unspecified type Take 1 Tablet by mouth in the morning. 30 minutes before the first meal of the day. Do not crush, split or chew the tablet. 30 Tablet 5 4 Active predniSONE 20 MG Oral Tablet (Deltasone)Racquel cations:Acute pain of right shoulder 2 tablets daily for 5 days then 1 tablet daily 15 Tablet 4 Active Additional Information Patient not taking.Reported on 11/26/2023 Rosuvastatin Calcium 10 MG Oral Tablet (Crestor)Indica tions:Dyslipide marilyn, goal LDL below 160 TAKE 1 TABLET BY MOUTH EVERY DAY IN THE MORNING 90 Tablet 4 Active Folic Acid 1 MG Oral TabletIndicatio ns:Malignant neoplasm of upper lobe of right lung (HCC),Metastasi s to mediastinal lymph node (HCC) Take 1 Tablet by mouth in the morning. 30 Tablet 5 4 Active dexAMETHasone 4 MG Oral Tablet (Decadron)Indic ations:Malignan t neoplasm of upper lobe of right lung (HCC),Metastasi s to mediastinal lymph node (HCC) Take 4mg twice a day x3 days starting the day before chemotherapy 36 Tablet 4 Active Ondansetron HCl 8 MG Oral Tablet (Zofran)Indicat ions:Malignant neoplasm of upper lobe of right lung (HCC),Metastasi s to mediastinal lymph node (HCC) Take 1 Tablet by mouth every 8 hours as needed for Nausea. 30 Tablet 2 4 Active Prochlorperazin e Maleate 10 MG Oral Tablet (Compazine)Racquel cations:Maligna nt neoplasm of upper lobe of right lung (HCC),Metastasi s to mediastinal lymph node (HCC) Take 1 Tablet by mouth every 6 hours as needed for Nausea. 30 Tablet 2 4 Active LORazepam 0.5 MG Oral Tablet (Ativan)Indicat ions:Malignant neoplasm of upper lobe of right lung (HCC),Metastasi s to mediastinal lymph node (HCC) Take 1 tablet 1 hour prior to MRI. Can take additional tablet at MRI if needed 2 Tablet 4 Active Hospital, Clinic, or Other Facility Administered Medication Ordered Dose Route Frequency Start Date End Date Status Albuterol Sulfate (Proventil) (5 MG/ML) 0.5% *conc* inhalation solution 2.5 mgIndications:Chronic cough,Restrictive lung disease 2.5 mg NEBULIZER PRN 10/28/2023 10/27/2024 Active Albuterol Sulfate (Proventil) (2.5 MG/3ML) 0.083% inhalation solution 2.5 mgIndications:Chronic cough,Restrictive lung disease 2.5 mg NEBULIZER PRN 10/28/2023 10/27/2024 Active documented as of this encounter (statuses as of 01/26/2024) Active Problems Problem Noted Date Diagnosed Date Malignant neoplasm of upper lobe of right lung 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 Encounter for antineoplastic chemotherapy 2023 Mass of right lung 11/28/2023 Bipolar 1 disorder 06/15/2022 Overview (06/15/2022): [facility] with target LDL less than 100 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 Overview (06/15/2022): PFTs reflect more of a restrictive pattern Tobacco use disorder 06/15/2022 documented as of this encounter (statuses as of 01/26/2024) Resolved Problems Problem Noted Date Diagnosed Date Resolved Date Restrictive lung disease 06/15/2022 Depression 05/02/2012 06/15/2022 Generalized anxiety disorder 01/14/2012 06/15/2022 documented as of this encounter (statuses as of 01/26/2024) Immunizations Name Administration Dates Next Due Pneumococcal Polysaccharide PPV23 (Pneumovax) Seasonal Influenza Vac., MDV, IM, 0.5 mL (Fluzon e) 12/14/2011 TDAP (age 10 and older)(Boostrix) 06/12/2012 documented as of this encounter Social History Tobacco Use Types Packs/Day Years Used Date Smoking Tobacco: Every Day Cigarettes 1.5 31 Smokeless Tobacco: Never Comments:1 1/2 ppd. Every da y smoker. 10/28/23. Alcohol Use Standard Drinks/Week Comments Not Currently 0 (1 standard drink = 0.6 oz pur e alcohol) occasionally Comments No Sex and Gender Information Value Date Recorded Sex Assigned at Not on file Legal Sex Female 5:27 AM EST Gender Identity Not on file Sexual Orientation Not on file Occupation Industry Job Start Date Job End Date unemployed Not on file Not on file Not on file Disability for learning disability Not on file Not on file Not on file documented as of this encounter Nursing Notes * Jael Atwood RN - 01/03/2024 1:18 PM EST Goals: Patient will remain free from injury. Possible barriers to meeting goals: ambulating with IV pole Stability of the patient: Moderately stable - low risk of patient condition declining or worsening Summary regarding today's goals: Met: pt remained free of harm today Patient tolerated treatment well without any acute issues or problems. Patient left facility in stable condition and denied any further needs. * Jael Atwood RN - 01/03/2024 10:04 AM EST Chair 7. IV inserted, no issues. Patient saw JUAN Arvizu today -- see OV note for details. Okay to proceed with tx today for C2 Keytruda, Alimta, Carboplatin. Chemotherapy/Immunotherapy agents: ALIMTA, CARBOPLATIN, and KEYTRUDA Consent for chemotherapy drug treatment complete, dated, and signed? yes, date - 12/06/2023 Treatment lab parameters met? Yes Has treatment weight changed > than 10%? No Treatment preauthorized? Yes VITALS There were no vitals filed for this visit. Urine protein: N/A Patient education completed for treatment? Yes Blood transfusion consent signed and complete? NA Return appointment scheduled? Yes Patient had provider visit today? Yes - Ok to release order and treat per provider Functional Status: Functional status at today's visit: Fully active, able to carry on all pre-disease performance without restriction The drug name, dose, infusion volume, rate and route of administration, expiration date and time, appearance and physical integrity of the drug and rate set on the pump and sequencing of drug administration (as applicable) were verified by me and second sign-in RN. Patient was assessed for symptoms or adverse side effects during treatment. Patient Education: Patient instructed on use of heat and massage functions where applicable. Patient shown how to operate the heat function of the chair and to alert nursing staff if the chair feels too warm. Patient instructed on the risk of potential parra while using the heat function. Safety and Risk for Injury Patient will remain free from injury. Ensure appropriate safety devices are available. Provide and maintain safe environment. documented in this encounter Plan of Treatment Upcoming Encounters Date Type Department Care Team (Late st Contact Info) Description 02/13/2024 10:00 AM EST Laboratory Laboratory [address] [place] [phone] [address] [place] [address] 02/14/2024 8:30 AM EST Office Visit Hematology/Oncology [facility] [place] [address] [place] [phone] Consuelo Jarvis CRNP [address] [facility] [place] [address] 02/14/2024 9:00 AM EST Hem/Onc Treatment Hematology/Oncology Treatment, [place] [address] [facility] [place] [phone] Amparo, Chair 3 Hem Onc Scenery 200 [facility] [place] [address] 02/25/2024 7:45 AM EST Imaging Radiology [address], [place] [address] [facility] [place] [address] 03/04/2024 10:00 AM EST Laboratory Laboratory [address] [place] [phone] [address] [place] [address] 03/05/2024 8:30 AM EST Office Visit Hematology/Oncology [facility] [place] [address] [place] [phone] Yogi Muñoz MD [address] [place] [address] 03/05/2024 9:00 AM EST Hem/Onc Treatment Hematology/Oncology Treatment, [place] [address] [facility] [place] [phone] Amparo, Chair [address] Hem Onc Sc[address] [place] [address] 07/21/2024 8:30 AM EDT Office Visit Family Medicine [address] [place] [phone] Renetta Naidu, [address] [place] [address] Health Maintenance Due Date Last Done Comments COVID-19 Vaccine (#1) 1981 Hepatitis B Vaccine (1 of 3 - 19+ 3-dose series) 09/08/1995 HPV/Co-Test 2006 Pneumococcal Vaccine: Pediatrics (0 to 5 Years) and At-Risk Patients (6 to 64 Years) (2 of 2 - PCV) 06/12/2013 06/12/2012 Cervical Cancer Screening 06/30/2017 Pap Smear 06/30/2017 06/30/2014, 05/20, 01/28/2006, Additional history exists Colonoscopy 2021 Fecal Occult Blood Test 2021 Sigmoidoscopy 2021 DTap/Tdap Vaccines (2 - Td or Tdap) 06/12/2022 06/12/2012 Mammogram 08/01/2023 07/31/2022, 06/18/2022 Influenza Vaccine (FLU shot) (#1) 2023 12/14/2011 Cologuard 07/05/2025 07/05/2022, 05/0 09/2022, 06/25/2022 Colorectal Cancer Screening 07/05/2025 Diabetes Screening 01/22/2027 01/23/2024, 1 03/14/2023, 01/02/2024, Additional history exists Lipid Panel 11/04/2028 11/05/2023, 03/22, 08/29/2022, Additional history exists Alpha-1 Antitrypsin Completed 11/05/2023 HPV (Gardasil) Vaccine Aged Out No lo nger eligible based on patient's age to complete this topic MENINGOCOCCAL (MENACTRA/MENVEO) Aged Out No longer eligible based on patient's age to complete this topic documented as of this encounter Medical Devices Implanted Type Area Finance Lecturer Device Identifier Shelf Expiration Date Model / Serial / Lot Device Perm Cntrl [id number] - [id number] Implanted:Qty: 2 on 09/30/2014 by Julio Ramírez MD at OR [facility] N/A: Fallopian Tube [employer] 03/02/2016 [id number] / / [id number] Description:Bilateral tubal documented as of this encounter Visit Diagnoses Diagnosis Encounter for antineoplastic chemotherapy- Primary Malignant neoplasm of upper lobe of right lung (HCC) Malignant neoplasm of upper lobe, bronchus or lung 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 documented in this encounter Administered Medications Inactive Administered Medications - up to 3 most recent administrations Medication Order MAR Action Action Date Dose Rate Site CARBOplatin (Paraplatin) 557 mg in D5W 250 mL infusion 557 mg (rounded from 556.5 mg, Target AUC = 5), IV Piggyback, at 510 mL/hr Administer over 30 Minutes, PROTECT FROM LIGHT Administer 30 min after Alimta complete (Max Creatinine Clearance at 125 ml/min for AUC dosing) Infuse 30min after pemetrexed is finished, ONCE, 1 dose, On Sat01/03/24 at 1215Indications:Encounter for antineoplastic chemotherapy,Malignant neoplasm of upper lobe of right lung (HCC),Metastasis to mediastinal lymph node (HCC) Start Infusion 01/03/2024 12:09 PM EST 557 mg 510 mL/hr Fosaprepitant Dimeglumine (Emend) 150 mg, ondansetron (Zofran) 16 mg, dexamethasone sodium phosphate 12 mg in NSS 250 mL Infusion 150 mg, IV Piggyback, ONCE, 1 dose, On Sat01/03/24 at 1100, Administer over 30 Minutes, Infuse over 30 minutes. Give 30 minutes prior to chemotherapy.Indications:En counter for antineoplastic chemotherapy,Malignant neoplasm of upper lobe of right lung (HCC),Metastasis to mediastinal lymph node (HCC) Start Infusion 01/03/2024 10:02 AM EST 150 mg 538.4 mL/hr NSS infusion Intravenous, at 50 mL/hr, PRN, Starting on Sat01/03/24 at 1100, Until Sat01/03/24 at 1720, Maintenance lineIndications:Encounter for antineoplastic chemotherapy,Malignant neoplasm of upper lobe of right lung (HCC),Metastasis to mediastinal lymph node (HCC) Start Infusion 01/03/2024 10:00 AM EST 50 mL/hr Pembrolizumab (Keytruda) 200 mg in NSS 100 mL infusion 200 mg, IV Piggyback, ONCE, 1 dose, On Sat01/03/24 at 1100, Administer over 30 Minutes, Infuse through 0.2 micron filter.Indications:Encounte r for antineoplastic chemotherapy,Malignant neoplasm of upper lobe of right lung (HCC),Metastasis to mediastinal lymph node (HCC) Start Infusion 01/03/2024 10:45 AM EST 200 mg 226 mL/hr PEMEtrexed Disodium (Alimta) 800 mg in NSS 100 mL infusion 800 mg (rounded from 840 mg = 500 mg/m2 1.68 m2 Treatment Plan BSA from Recorded weight), IV Piggyback, ONCE, 1 dose, On Sat01/03/24 at 1130, Administer over 10 MinutesIndications:Encounte r for antineoplastic chemotherapy,Malignant neoplasm of upper lobe of right lung (HCC),Metastasis to mediastinal lymph node (HCC) Start Infusion 01/03/2024 11:20 AM EST 800 mg 630 mL/hr documented in this encounter Care Teams Director Of Food And Nutrition Relationship Specialty Start Date End Date Renetta Naidu DO [address] [place] [address] [place] [id number] PCP - General Internal Medicine 11/12/23 documented as of this encounter
--- OUTSIDE RECORDS SUMMARY | 2024-02-08 04:25 | External Medical Summary | Summary of Care ---
Author Name Unknown Organization [facility] Address [address] [place] [address] Phone [phone] Care Team Providers Care District Manager Postal Service Name Role Phone Renetta Naidu DO Primary Care Provider [phone] Reason for Visit * Reason Comments Chemotherapy C2/D1 - Keytruda, [place], Carboplatin * Episode Based Medications (Routine) - Authorized Specialty Diagnoses / Procedures Referred By Contac t Referred To Contact Diagnoses Encounter for antineoplastic chemotherapy Malignant neoplasm of upper lobe of right lung (HCC) Metastasis to mediastinal lymph node (HCC) Procedures DC CARBOPLATIN INJECTION DC INJ. PEMETREXED NOS 10MG DC FOSAPREPITANT INJECTION DC INJ PEMBROLIZUMAB Yogi Muñoz MD [address] [place] [address] [place] [address] Phone: tel: fax: Hematology/Oncology Treatment, [address] [address] Phone: tel: fax: Referral ID Status Reason Start Date Expiration Date V isits Requested Visits Authorized [id number] Authorized 12/06/2023 02/17/2099 [id number] Encounter Details Date Type Department Care Team (Latest Contact Info) Description 01/03/2024 9:30 AM EST Hem/Onc Treatment Hematology/Oncolog y Treatment, [address] [address] Amparo, Chair 5 Hem Onc Scen[address] [place], [place] [address] Encounter for antineoplastic chemotherapy*; Malignant neoplasm of [...] Overview (06/15/2022): [facility] with target LDL less than [...] Description 02/13/2024 10:00 AM EST Laboratory Laboratory [address] [place] [phone] [address] [place] [address] 02/14/2024 8:30 AM EST Office Visit Hematology/Oncology [facility] [place] [address] [place] [phone] Consuelo Jarvis CRNP 400 [facility] [place] [address] 02/14/2024 9:00 AM EST Hem/Onc Treatment Hematology/Oncology Treatment, [place] 200 [facility] [place] [phone] Amparo, Chair 3 Hem Onc Scenery 200 [facility] [place] [address] 02/25/2024 7:45 AM EST Imaging Radiology [address], [place] 132 [facility] [place] [address] 03/04/2024 10:00 AM EST Laboratory Laboratory [address] [place] [phone] [address] [place] [address] 03/05/2024 8:30 AM EST Office Visit Hematology/Oncology [facility] [place] [address] [place] [phone] Yogi Muñoz MD [address] [place] [address] 03/05/2024 9:00 AM EST Hem/Onc Treatment Hematology/Oncology Treatment, [place] [address] [facility] [place] [phone] Amparo, Chair 3 Hem Onc Scenery [address] [place] [address] 07/21/2024 8:30 AM EDT Office Visit Family Medicine [address] [place] [phone] Renetta Naidu, [address] [place] [address] Health Maintenance Due Date Last Done Comments [...] encounter Medical Devices Implanted Type Area Finance Vice President Device Identifier Shelf Expiration Date Model / Serial / Lot Device Perm Cntrl [id number] - [id number] Implanted:Qty: 2 on 09/30/2014 by Julio Ramírez MD at OR [facility] N/A: Fallopian Tube [employer] 03/02/2016 [id number] / / [id number] Description:Bilateral tubal documented as of this encounter [...] mL/hr documented in this encounter Care Teams District Manager Postal Service Relationship Specialty Start Date End Date Renetta Naidu DO [address] [place] [address] [place] [phone] PCP - General Internal Medicine 11/12/23 documented as of this encounter
--- OUTSIDE RECORDS SUMMARY | 2024-02-08 04:25 | External Medical Summary | Summary of Care ---
Author Name Unknown Organization [facility] Address [address] [place] [address] Phone [phone] Care Team Providers Care Booker Name Role Phone Renetta Naidu DO Primary Care Provider Reason for Visit * Reason Comments eRx-Medication Refill Encounter Details Date Type Department Care Team (Late st Contact Info) Description 01/24/2024 Refill Family Medicine [address] [phone] Jose C Prasad PA-C [address] [place] [address] [place] [address] Tobacco use; SOB (shortness of breath) Allergies No known active allergiesdocumented as of this encounter (statuses as of 01/26/2024) Medications lamoTRIgine 100 MG Oral Tablet (LaMICtal) TAKE 1 TABLET BY MOUTH 2 TIME(S) PER DAY 05/05/19 21 Active Lybalvi 20-10 MG Oral Tablet ONE TABLET BY MOUTH AT BEDTIME FOR MOOD 04/23/19 23 Active Trelegy Ellipta 200-62.5-25 MCG/ACT Aerosol Powder Breath Activated (Fluticasone-U meclidinium-Vi lanterol)Indic ations: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 30 Blister Dosing Unit 5 09/25/19 24 Active Pantoprazole Sodium 40 MG Oral Tablet Delayed Release (Protonix)Racquel cations:Dyspha eliud, unspecified type Take 1 Tablet by mouth in the morning. 30 minutes before the first meal of the day. Do not crush, split or chew the tablet. 30 Tablet 5 11/12/19 24 Active predniSONE 20 MG Oral Tablet (Deltasone)Ind ications:Acute pain of right shoulder 2 tablets daily for 5 days then 1 tablet daily 15 Tablet 11/12/19 24 Active Additional Information Patient not taking.Reported on 11/26/2023 Rosuvastatin Calcium 10 MG Oral Tablet (Crestor)Indic ations:Dyslipi demia, goal LDL below 160 TAKE 1 TABLET BY MOUTH EVERY DAY IN THE MORNING 90 Tablet 11/14/19 24 Active Folic Acid 1 MG Oral TabletIndicati ons:Malignant neoplasm of upper lobe of right lung (HCC),Metastas is to mediastinal lymph node (HCC) Take 1 Tablet by mouth in the morning. 30 Tablet 5 12/06/19 24 Active dexAMETHasone 4 MG Oral Tablet (Decadron)Racquel cations:Malign ant neoplasm of upper lobe of right lung (HCC),Metastas is to mediastinal lymph node (HCC) Take 4mg twice a day x3 days starting the day before chemotherapy 36 Tablet 12/06/19 24 Active Ondansetron HCl 8 MG Oral Tablet (Zofran)Indica tions:Malignan t neoplasm of upper lobe of right lung (HCC),Metastas is to mediastinal lymph node (HCC) Take 1 Tablet by mouth every 8 hours as needed for Nausea. 30 Tablet 2 12/06/19 24 Active Prochlorperazi ne Maleate 10 MG Oral Tablet (Compazine)Ind ications:Malig nant neoplasm of upper lobe of right lung (HCC),Metastas is to mediastinal lymph node (HCC) Take 1 Tablet by mouth every 6 hours as needed for Nausea. 30 Tablet 2 12/06/19 24 Active LORazepam 0.5 MG Oral Tablet (Ativan)Indica tions:Malignan t neoplasm of upper lobe of right lung (HCC),Metastas is to mediastinal lymph node (HCC) Take 1 tablet 1 hour prior to MRI. Can take additional tablet at MRI if needed 2 Tablet 12/18/19 24 Active Albuterol Sulfate HFA 108 (90 Base) MCG/ACT Inhalation Aerosol SolutionIndica tions:Tobacco use,SOB (shortness of breath) TAKE 2 PUFFS BY MOUTH EVERY 4 HOURS NEEDED FOR WHEEZE 18 g 1 01/26/20 24 Active Albuterol Sulfate HFA 108 (90 Base) MCG/ACT Inhalation Aerosol SolutionIndica tions:Tobacco use,SOB (shortness of breath) Inhale 2 Puffs by mouth every 4 hours as needed for Wheezing. 18 g 1 10/30/19 24 024 Discontinued Hospital, Clinic, or Other Facility Administered Medication [...] Overview (06/15/2022): Follows with psychiatry - at [facility] Hyperlipidemia with target LDL less than 100 [...] on file documented as of this encounter Miscellaneous Notes * Telephone Encounter - Jewell Donovan [facility] - 01/26/2024 7:28 AM ESTSigned Prescriptions: Disp Refills Albuterol Sulfate HFA 108 (90 Base) MCG/AC*18 g 1 Sig: TAKE 2 PUFFS BY MOUTH EVERY 4 HOURS NEEDED FOR WHEEZEAuthorizing Provider: JOSE C PRASAD User:JEWELL DONOVAN documented in this encounter Plan of Treatment Upcoming Encounters Date Type Department Care Team (Late st Contact Info) Description 02/13/2024 10:00 AM EST Laboratory Laboratory [address] [place] [phone] [address] [place] [address] 02/14/2024 8:30 AM EST Office Visit Hematology/Oncology [facility] [place] [address] [place] [phone] Consuelo Jarvis CRNP 400 [facility] [place] [address] 02/14/2024 9:00 AM EST Hem/Onc Treatment Hematology/Oncology Treatment, [place] 200 [facility] [place] [phone] Amparo, Chair 3 Hem Onc Scenery 200 [facility] [place] [address] 02/25/2024 7:45 AM EST Imaging Radiology [address], [place] [address] [place] [address] 03/04/2024 10:00 AM EST Laboratory Laboratory [address] [place] [phone] [address] [place] [address] 03/05/2024 8:30 AM EST Office Visit Hematology/Oncology [facility] [address] [place] [phone] Yogi Muñoz MD 200 [facility] [place] [address] 03/05/2024 9:00 AM EST Hem/Onc Treatment Hematology/Oncology Treatment, [place] 200 [facility] [place] [phone] Amparo, Chair 3 Hem Onc Scenery 200 [facility] [place] [address] 07/21/2024 8:30 AM EDT Office Visit Family Medicine [address] [place] [phone] Renetta Naidu[address] [place] [address] Health Maintenance Due Date Last Done Comments [...] this encounter Medical Devices Implanted Type Area Diesel Locomotive Firer/Fireman Device Identifier Shelf Expiration Date Model / Serial / Lot Device Perm Cntrl [id number] - [id number] Implanted:Qty: 2 on 09/30/2014 by Julio Ramírez MD at OR [facility] N/A: Fallopian Tube [employer] 03/02/2016 [id number] / / [id number] Description:Bilateral tubal documented as of this encounter Visit Diagnoses Diagnosis Tobacco use Tobacco use disorder SOB (shortness of breath) Shortness of breath documented in this encounter Care Teams [place] Relationship Specialty Start Date End Date Renetta Naidu DO [address] [place] [address] [place] [address] PCP - General Internal Medicine 11/12/23 documented as of this encounter
--- OUTSIDE RECORDS SUMMARY | 2024-02-08 04:25 | External Medical Summary | Summary of Care ---
Author Name Unknown Organization [facility] Address [address] [place] [address] Phone [phone] Care Team Providers Care Director Digital Sales Name Role Phone Karl Lobo DO Primary Care Provider Reason for Visit * Reason Onset Date Comments Medication Refill 01/31/2024 Encounter Details Date Type Department Care Team (Late st Contact Info) Description 01/31/2024 Refill Family Medicine [address] [phone] Karl Lobo DO [address] [place] [address] [place] [address] Dysphagia, unspecified type Allergies No known active allergiesdocumented as of this encounter (statuses as of 02/04/2024) Medications lamoTRIgine 100 MG Oral Tablet (LaMICtal) [...] Blister Dosing Unit 5 09/25/19 24 Active predniSONE 20 MG Oral Tablet (Deltasone)Racquel [...] 24 Active Folic Acid 1 MG Oral TabletIndicatio ns:Malignant neoplasm of upper lobe of right lung (HCC),Metastasi s to mediastinal lymph node (HCC) Take 1 Tablet by mouth in the morning. 30 Tablet 5 12/06/19 24 Active dexAMETHasone 4 MG Oral Tablet (Decadron)Indic [...] Nausea. 30 Tablet 2 12/06/19 24 Active Prochlorperazin e Maleate 10 MG Oral Tablet (Compazine)Racquel cations:Maligna nt neoplasm of upper lobe of right lung (HCC),Metastasi s to mediastinal lymph node (HCC) Take 1 Tablet by mouth every 6 hours as needed for Nausea. 30 Tablet 2 12/06/19 24 Active LORazepam 0.5 MG Oral Tablet (Ativan)Indicat ions:Malignant neoplasm of upper lobe of right lung (HCC),Metastasi s to mediastinal lymph node (HCC) Take 1 tablet 1 hour prior to MRI. Can take additional tablet at MRI if needed 2 Tablet 12/18/19 24 Active Albuterol Sulfate HFA 108 (90 Base) MCG/ACT Inhalation Aerosol SolutionIndicat ions:Tobacco use,SOB (shortness of breath) TAKE 2 PUFFS BY MOUTH EVERY 4 HOURS NEEDED FOR WHEEZE 18 g 1 01/26/20 24 Active Pantoprazole Sodium 40 MG Oral Tablet Delayed Release (Protonix)Indic ations:Dysphagi a, unspecified type Take 1 Tablet by mouth in the morning. 30 minutes before the first meal of the day. Do not crush, split or chew the tablet. 90 Tablet 1 02/04/20 24 Active Pantoprazole Sodium 40 MG Oral Tablet Delayed Release (Protonix)Indic ations:Dysphagi a, unspecified type Take 1 Tablet by mouth in the morning. 30 minutes before the first meal of the day. Do not crush, split or chew the tablet. 30 Tablet 5 11/12/19 24 024 Discontin ued(Refil l) Hospital, Clinic, or Other Facility Administered Medication [...] as of this encounter (statuses as of 02/04/2024) Active Problems Problem Noted Date Diagnosed Date [...] as of this encounter (statuses as of 02/04/2024) Resolved Problems Problem Noted Date Diagnosed Date Resolved Date Restrictive lung disease 06/15/2022 Depression 05/02/2012 06/15/2022 Generalized anxiety disorder 01/14/2012 06/15/2022 documented as of this encounter (statuses as of 02/04/2024) Immunizations Name Administration Dates Next Due Pneumococcal [...] encounter Miscellaneous Notes * Telephone Encounter - Karl Lobo DO - 02/04/2024 8:33 AM ESTSigned Prescriptions: Disp Refills Pantoprazole Sodium 40 MG Oral Tablet Lizz*90 Tab*1 Sig: Take 1 Tablet by mouth in the morning. 30 minutes before the first meal of the day. Do not crush, split or chew the tablet. Authorizing Provider: KARL LOBO * Telephone Encounter - Lanny Larios CMA - 02/03/2024 8:55 AM ESTPending Prescriptions: Disp Refills Pantoprazole Sodium 40 MG Oral Tablet Lizz*90 Tab*1 Sig: Take 1 Tablet by mouth in the morning. 30 minutes before the first meal of the day. Do not crush, split or chew the tablet. * Telephone Encounter - Armida Alcantara OSA - 01/31/2024 10:46 AM EST Did you pend patient's preferred pharmacy and medication before forwarding?yes Pharmacy: [id number] [id number] [facility] Pending Prescriptions: Disp Refills Pantoprazole Sodium 40 MG Oral Tablet Del*30 Tab*5 Sig: Take 1 Tablet by mouth in the morning. 30 minutes before the first meal of the day. Do not crush, split or chew the tablet. Last Visit: 11/12/2023 (in office), Visit date not found (telemedicine) Next Visit: 07/21/2024 If no future appointments scheduled, and last appointment is greater than a year ago, please schedule patient for a follow-up appointment Last date the medication was ordered: 11/12/2023 Is this request for a controlled substance?No Urine Drug Screen:No results found for this or any previous visit. Patient Phone Numbers Labs: Lab Results Component Value Date/Time CREAT 0.8 01/23/2024 08:35 AM CREAT 1.0 09/28/2019 09:12 AM POTASSIUM 4.6 01/23/2024 08:35 AM POTASSIUM 4.0 09/28/2019 09:12 AM TSH 2.19 01/23/2024 08:35 AM LDL 75 11/05/2023 09:57 AM LDL 142 (H) 09/28/2019 09:12 AM LDLCALC 119 (A) 05/03/2014 12:00 AM ALT 22 01/23/2024 08:35 AM ALT 21 10/13/2013 12:00 AM HGBA1C 5.6 11/05/2023 09:57 AM HGBA1C 5.1 09/28/2019 09:12 AM documented in this encounter Plan of Treatment Upcoming Encounters Date Type Department Care Team (Late st Contact Info) Description 02/13/2024 10:00 AM EST Laboratory Laboratory [address] [place] [phone] [place] [address] 02/14/2024 8:30 AM EST Office Visit Hematology/Oncology [facility] [place] [address] [place] [phone] Consuelo Jarvis CRNP 400 [facility] [place] [address] 02/14/2024 9:00 AM EST Hem/Onc Treatment Hematology/Oncology Treatment, [place] [address] [place] [phone] Amparo, Chair 3 Hem Onc [facility] 200 [facility] [place] [address] 02/25/2024 7:45 AM EST Imaging Radiology [address], [place] 132 [facility] [place] [address] 03/04/2024 10:00 AM EST Laboratory Laboratory [address] [place] [phone] [place] [address] 03/05/2024 8:30 AM EST Office Visit Hematology/Oncology [facility] [place] [address] [place] [phone] Yogi Muñoz MD [address] [place] [address] 03/05/2024 9:00 AM EST Hem/Onc Treatment Hematology/Oncology Treatment, [place] 200 [facility] [place] [phone] Park, Chair 3 Hem Onc [place] 200 [facility] [address] 07/21/2024 8:30 AM EDT Office Visit Family Medicine [address] [place] [phone] [place] [address] Health Maintenance Due Date Last Done Comments [...] this encounter Medical Devices Implanted Type Area Highway Safety Engineer Device Identifier Shelf Expiration Date Model / Serial / Lot Device Perm Cntrl [id number] - [id number] Implanted:Qty: 2 on 09/30/2014 by Julio Ramírez MD at OR [facility] N/A: Fallopian Tube [employer] 03/02/2016 [id number] / / [id number] Description:Bilateral tubal documented as of this encounter Visit Diagnoses Diagnosis Dysphagia, unspecified type documented in this encounter Care Teams Director Digital Sales Relationship Specialty Start Date End Date Karl Lobo DO [address] [place] [address] [place] [phone] PCP - General Internal Medicine 11/12/23 documented as of this encounter
--- OUTSIDE RECORDS SUMMARY | 2024-02-08 04:25 | External Medical Summary | Summary of Care ---
Author Name Unknown Organization [facility] Address [address] [place] [address] Phone [phone] Care Team Providers Care Commercial Real Estate Agent Name Role Phone Renetta Naidu DO Primary Care Provider [phone] Reason for Visit * Reason Comments Chemotherapy C2/D1 - Keytruda, [place], Carboplatin * Episode Based Medications (Routine) - Authorized Specialty Diagnoses / Procedures Referred By Contac t Referred To Contact Diagnoses Encounter for antineoplastic chemotherapy Malignant neoplasm of upper lobe of right lung (HCC) Metastasis to mediastinal lymph node (HCC) Procedures MS CARBOPLATIN INJECTION MS INJ. PEMETREXED NOS 10MG MS FOSAPREPITANT INJECTION MS INJ PEMBROLIZUMAB Yogi Muñoz MD [address] [place] [address] [place] [address] Phone: tel: fax: Hematology/Oncology Treatment, [address] [address] Phone: tel: fax: Referral ID Status Reason Start Date Expiration Date V isits Requested Visits Authorized [id number] Authorized 12/06/2023 02/17/[phone] Encounter Details Date Type Department Care Team (Latest Contact Info) Description 01/03/2024 9:30 AM EST Hem/Onc Treatment Hematology/Oncolog y Treatment, [address] [phone] Amparo, Chair 5 Hem Onc [address] [place], [place] [address] Encounter for antineoplastic chemotherapy*; Malignant neoplasm of [...] Overview (06/15/2022): [facility] with target LDL less than 100 [...] Description 02/13/2024 10:00 AM EST Laboratory Laboratory [address] [place] [phone] [address] [place] [address] 02/14/2024 8:30 AM EST Office Visit Hematology/Oncology [facility] [place] [address] [place] [phone] Consuelo Jarvis CRNP 400 [facility] [place] [address] 02/14/2024 9:00 AM EST Hem/Onc Treatment Hematology/Oncology Treatment, [place] 200 [facility] [place] [phone] Amparo, Chair 3 Hem Onc [address]en[address] 200 [facility] [place] [address] 02/25/2024 7:45 AM EST Imaging Radiology [address], [place] 132 [facility] [place] [address] 03/04/2024 10:00 AM EST Laboratory Laboratory [address] [place] [phone] [address] [place] [address] 03/05/2024 8:30 AM EST Office Visit Hematology/Oncology [facility] [place] [address] [place] [phone] Yogi Muñoz MD [address] [place] [address] 03/05/2024 9:00 AM EST Hem/Onc Treatment Hematology/Oncology Treatment, [place] [address] [facility] [place] [phone] Amparo, Chair 3 Hem Onc [address] [place] [address] 07/21/2024 8:30 AM EDT Office Visit Family Medicine [address] [place] [phone] Renetta Naidu, [address] [place] [address] Health Maintenance Due Date Last Done Comments [...] this encounter Medical Devices Implanted Type Area Holistic Pulser Device Identifier Shelf Expiration Date Model / Serial / Lot Device Perm Cntrl [id number] - [id number] Implanted:Qty: 2 on 09/30/2014 by Julio Ramírez MD at OR [facility] N/A: Fallopian Tube [employer] 03/02/2016 [id number] / / [id number] Description:Bilateral tubal documented as of this encounter [...] mL/hr documented in this encounter Care Teams Commercial Real Estate Agent Relationship Specialty Start Date End Date Renetta Naidu DO [address] [place] [address] [place] [phone] PCP - General Internal Medicine 11/12/23 documented as of this encounter
--- OUTSIDE RECORDS SUMMARY | 2024-02-08 04:25 | External Medical Summary | Summary of Care ---
Author Name Unknown Organization [facility] Address [address] [facility] [place] [address] Phone [phone] Care Team Providers Care Truck Hop Name Role Phone Naidu Renetta Mcdaniel Primary Care Provider Reason for Visit * Reason Onset Date Comments Advice 02/07/2024 Encounter Details Date Type Department Care Team (Late st Contact Info) Description 02/07/2024 Telephone Hematology/Oncology [facility] [address] [place] [address] Yogi Muñoz MD [address] [place] [address] Advice Allergies No known active allergiesdocumented as of this encounter (statuses as of 02/07/2024) Medications lamoTRIgine 100 MG Oral Tablet (LaMICtal) [...] 30 Blister Dosing Unit 5 4 Active predniSONE 20 MG Oral [...] MRI if needed 2 Tablet 4 Active Albuterol Sulfate HFA 108 (90 Base) MCG/ACT Inhalation Aerosol SolutionIndicat ions:Tobacco use,SOB (shortness of breath) TAKE 2 PUFFS BY MOUTH EVERY 4 HOURS NEEDED FOR WHEEZE 18 g 1 4 Active Pantoprazole Sodium 40 MG Oral Tablet Delayed Release (Protonix)Indic ations:Dysphagi a, unspecified type Take 1 Tablet by mouth in the morning. 30 minutes before the first meal of the day. Do not crush, split or chew the tablet. 90 Tablet 1 Active Hospital, Clinic, or Other Facility Administered [...] as of this encounter (statuses as of 02/07/2024) Active Problems Problem Noted Date Diagnosed Date [...] as of this encounter (statuses as of 02/07/2024) Resolved Problems Problem Noted Date Diagnosed Date Resolved Date Restrictive lung disease 06/15/2022 Depression 05/02/2012 06/15/2022 Generalized anxiety disorder 01/14/2012 06/15/2022 documented as of this encounter (statuses as of 02/07/2024) Immunizations Name Administration Dates Next Due Pneumococcal Polysaccharide PPV23 (Pneumovax) Seasonal Influenza Vac., MDV, IM, 0.5 mL (Fluzon e) 12/14/2011 TDAP (age 10 and older)(Boostrix) 06/12/2012 documented as of this encounter Social History Tobacco Use Types Packs/Day Years Used Date Smoking Tobacco: Every Day Cigarettes 1.5 31 Smokeless Tobacco: Never Comments:1 02/19 ppd. Every da y smoker. 10/28/23. Alcohol [...] encounter Miscellaneous Notes * Telephone Encounter - Mata Zazueta RN - 02/07/2024 10:36 AM EST Pt calling in with c/o of shortness of breath on exertion. Pt states that when she needs to take a deep breath she has trouble doing this. States doing light walking around the house has primarily been fine but has to sit "sometimes but not frequently." Pt states she is unable to get to a lab todayas she doesn't have a ride currently. She denies chest pain at this time. I advised patient that if she can be seen in urgent care today for evaluation that would be ok or she may go to the ER for evaluation. I did advise her that her hemoglobin was low prior to her last chemotherapy and may be the cause of the shortness of breath she is experiencing as she is having no other respiratory symptoms (denied cough, fever). I did advise that if she felt it was an emergency we could have her do labs on Saturday for our provider to review. She verbalized understanding of all options at this time. After speaking with patient, this RN called her back a second time. Advised that given her history of metastatic lung cancer and her anemia, she should be evaluated in the ER. She is agreeable to this and is going to try to find a ride. N:S- Please call patient back in 1 hour to see if she was able to get a ride to the ER, if not, please offer again to call an ambulance as patient refused the first time. documented in this encounter Plan of Treatment Upcoming Encounters Date Type Department Care Team (Late st Contact Info) Description 02/13/2024 10:00 AM EST Laboratory Laboratory [address] [place] [phone] [place] [address] 02/14/2024 8:30 AM EST Office Visit Hematology/Oncology [facility] [place] [address] [place] [phone] Consuelo Jarvis CRNP [address] [place], [place] [address] [address] 02/14/2024 9:00 AM EST [facility] [phone] Amparo, Chair 3 Hem On[address] [place] [address] 02/25/2024 7:45 AM EST Imaging Radiology [address], [address] [address] 03/04/2024 10:00 AM EST Laboratory Laboratory [address] [place] [address] [place] [address] 03/05/2024 8:30 AM EST Office Visit Hematology/Oncology [facility] [place] [address] [facility] [place] [phone] Yogi Muñoz MD [address] [place] [address] 03/05/2024 9:00 AM EST Hem/Onc Treatment Hematology[facility]Oncology Treatment, [place] [facility] [phone] Amparo, Chair 3 Hem Onc [facility] [address] [facility] [place] [address] 07/21/2024 8:30 AM EDT Office Visit Family Medicine [address] [phone] [place] [address] Health Maintenance Due Date Last Done Comments [...] this encounter Medical Devices Implanted Type Area Felt Hat Inspector And Packer Device Identifier Shelf Expiration Date Model / Serial / Lot Device Perm Cntrl [id number] - [id number] Implanted:Qty: 2 on 09/30/2014 by Julio Ramírez MD at OR [facility] N/A: Fallopian Tube [employer] 03/02/2016 [id number] / / [id number] Description:Bilateral tubal documented as of this encounter Care Teams Truck Hop Relationship Specialty Start Date End Date Renetta Naidu DO [address] [place] [address] [place] [address] PCP - General Internal Medicine 11/12/23 documented as of this encounter
--- OUTSIDE RECORDS SUMMARY | 2024-02-08 04:25 | External Medical Summary | Summary of Care ---
Author Name Unknown Organization [facility] Address [address] [place] [address] Phone [phone] Care Team Providers Care Newspaper Delivery Driver Name Role Phone Renetta Naidu DO Primary Care Provider Reason for Visit * Reason Comments Chemotherapy C2/D1 - Keytruda, Al imta, Carboplatin * Episode Based Medications (Routine) - Authorized Specialty Diagnoses / Procedures Referred By Contac t Referred To Contact Diagnoses Encounter for antineoplastic chemotherapy Malignant neoplasm of upper lobe of right lung (HCC) Metastasis to mediastinal lymph node (HCC) Procedures UT CARBOPLATIN INJECTION UT INJ. PEMETREXED NOS 10MG UT FOSAPREPITANT INJECTION UT INJ PEMBROLIZUMAB Yogi Muñoz MD [address] [place] [address] [place] [address] Phone: tel: fax: Hematology/Oncology Treatment, [address] [address] Phone: tel: fax: Referral ID Status Reason Start Date Expiration Date V isits Requested Visits Authorized [id number] Authorized 12/06/2023 02/17/2099 [id number] Encounter Details Date Type Department Care Team (Latest Contact Info) Description 01/03/2024 9:30 AM EST Hem/Onc Treatment Hematology/Oncolog y Treatment, [address] [address] Amparo, Chair 5 Hem Onc [address] [place], [place] [address] Encounter for antineoplastic chemotherapy*; Malignant neoplasm of [...] Overview (06/15/2022): [facility] with target LDL less than 100 [...] Description 02/13/2024 10:00 AM EST Laboratory Laboratory [address] [place] [phone] [address] [place] [address] 02/14/2024 8:30 AM EST Office Visit Hematology/Oncology [facility] [place] [address] [place] [phone] Consuelo Jarvis CRNP [address] [facility] [place] [address] 02/14/2024 9:00 AM EST Hem/Onc Treatment Hematology/Oncology Treatment, [place] 200 [facility] [place] [phone] Amparo, Chair 3 Hem Onc [address] 200 [facility] [place] [address] 02/25/2024 7:45 AM EST Imaging Radiology [address], [place] 132 [facility] [place] [address] 03/04/2024 10:00 AM EST Laboratory Laboratory [address] [place] [phone] [address] [place] [address] 03/05/2024 8:30 AM EST Office Visit Hematology/Oncology [facility] [place] [address] [place] [phone] Yogi Muñoz MD [address] [place] [address] 03/05/2024 9:00 AM EST Hem/Onc Treatment Hematology/Oncology Treatment, [place] [address] [facility] [place] [phone] Amparo, Chair 3 Hem Onc [address] [place] [address] 07/21/2024 8:30 AM EDT Office Visit Family Medicine [address] [place] [phone] Renetta Naidu, [address] [place] [address] Health Maintenance Due Date Last Done Comments [...] this encounter Medical Devices Implanted Type Area Display Artist Device Identifier Shelf Expiration Date Model / Serial / Lot Device Perm Cntrl [id number] - [id number] Implanted:Qty: 2 on 09/30/2014 by Julio Ramírez MD at OR [facility] N/A: Fallopian Tube [employer] 03/02/2016 [id number] / / [id number] Description:Bilateral tubal documented as of this encounter [...] mL/hr documented in this encounter Care Teams Newspaper Delivery Driver Relationship Specialty Start Date End Date Renetta Naidu DO [address] [place] [address] [place] [id number] PCP - General Internal Medicine 11/12/23 documented as of this encounter
--- OUTSIDE RECORDS SUMMARY | 2024-02-08 04:25 | External Medical Summary | Summary of Care ---
Author Name Unknown Organization [facility] Address [address] [place] [facility] [place] [address] Phone [phone] Care Team Providers Care Rn Cvor Name Role Phone Naidu Renetta Mcdaniel Primary Care Provider [phone] Reason for Visit * Reason Onset Date Comments Advice 02/07/2024 Encounter Details Date Type Department Care Team (Late st Contact Info) Description 02/07/2024 Telephone Hematology/Oncology [facility] 200 [facility] [address] Yogi Muñoz MD [address] [place] [address] Advice Allergies No known active allergiesdocumented as [...] Encounter - Mata Zazueta RN - 02/07/2024 11:48 AM EST Called patient back, she states she is getting a ride. She will be going to [facility] ER. N:S- please follow up with patient on Saturday to see how she is doing. * Telephone Encounter - Mata Zazueta RN [...] Description 02/13/2024 10:00 AM EST Laboratory Laboratory [address] [place] [phone] [place] [address] 02/14/2024 8:30 AM EST Office Visit Hematology/Oncology [facility] 200 [facility] [place] [phone] Consuelo Jarvis CRNP 400 [facility] [place] [address] 02/14/2024 9:00 AM EST Hem/Onc Treatment Hematology/Oncology Treatment, [place] [address] [place] [phone] Amparo, Chair 3 Hem Onc [facility] [address] [place] [address] 02/25/2024 7:45 AM EST Imaging Radiology [facility] 1st Floor, [place] [address]eta Robbi [place] [address] 03/04/2024 10:00 AM EST Laboratory Laboratory [address] [place] [phone] [place] [address] 03/05/2024 8:30 AM EST Office Visit Hematology/Oncology [facility] 200 [facility] [place] [phone] Yogi Muñoz MD [address] [facility] [place] [address] 03/05/2024 9:00 AM EST Hem/Onc Treatment Hematology/Oncology Treatment, [place] [address] [facility] [address] [place], [place] [phone] Amparo, Chair 3 Hem Onc [facility] 200 [facility] [place], [place] [address] 07/21/2024 8:30 AM EDT Office Visit Family Medicine [address] [phone] Ren[address] [address] Health Maintenance Due Date Last Done Comments [...] this encounter Medical Devices Implanted Type Area Toll Operator Device Identifier Shelf Expiration Date Model / Serial / Lot Device Perm Cntrl [id number] - [id number] Implanted:Qty: 2 on 09/30/2014 by Julio Ramírez MD at OR [facility] N/A: Fallopian Tube [employer] 03/02/2016 [id number] / / [id number] Description:Bilateral tubal documented as of this encounter Care Teams Rn Cvor Relationship Specialty Start Date End Date Renetta Naidu DO [address] [place] [address] [place] [address] PCP - General Internal Medicine 11/12/23 documented as of this encounter
--- OUTSIDE RECORDS SUMMARY | 2024-02-08 04:26 | External Medical Summary | Summary of Care ---
Author Name Unknown Organization [facility] Address [address] [place] [facility] [place] [address] Phone [phone] Care Team Providers Care Sailboat Captain Name Role Phone NaiduRenetta philip Primary Care Provider Reason for Visit * Reason Onset Date Comments Advice 01/06/2024 Dr. Muñoz Encounter Details Date Type Department Care Team (Late st Contact Info) Description 01/06/2024 Telephone Hematology/Oncology [facility] Amparo [place] [address] [place] [phone] Yogi Muñoz MD [address] [place] [address] Advice (Dr. Muñoz ) Allergies No known active allergiesdocumented as of this encounter (statuses as of 01/06/2024) Medications lamoTRIgine 100 MG Oral Tablet (LaMICtal) [...] Blister Dosing Unit 5 09/25/19 24 Active Albuterol Sulfate HFA 108 (90 Base) MCG/ACT Inhalation Aerosol SolutionIndicat ions:Tobacco use,SOB (shortness of breath) Inhale 2 Puffs by mouth every 4 hours as needed for Wheezing. 18 g 1 10/30/19 24 Active Pantoprazole Sodium 40 MG Oral [...] if needed 2 Tablet 12/18/19 24 Active oxyCODONE HCl 5 MG Oral Tablet (Oxy IR)Indications: Cancer related pain Take 1 Tablet by mouth every 6 hours as needed for Pain, Severe. 30 Tablet 01/03/20 24 024 Discontin ued(Adver se reaction) Hospital, Clinic, or Other Facility Administered Medication [...] as of this encounter (statuses as of 01/06/2024) Active Problems Problem Noted Date Diagnosed Date [...] as of this encounter (statuses as of 01/06/2024) Resolved Problems Problem Noted Date Diagnosed Date Resolved Date Restrictive lung disease 06/15/2022 Depression 05/02/2012 06/15/2022 Generalized anxiety disorder 01/14/2012 06/15/2022 documented as of this encounter (statuses as of 01/06/2024) Immunizations Name Administration Dates Next Due Pneumococcal Polysaccharide PPV23 (Pneumovax) Seasonal Influenza Vac., MDV, IM, 0.5 mL (Fluzon e) 12/14/2011 TDAP (age 10 and older)(Boostrix) 06/12/2012 documented as of this encounter Social History Tobacco Use Types Packs/Day Years Used Date Smoking Tobacco: Every Day Cigarettes 1.5 31 Smokeless Tobacco: Never Comments:1 2 ppd. Every da y smoker. 10/28/23. Alcohol [...] as of this encounter Miscellaneous Notes * Addendum Note - Fariha Jarvis CRNP - 01/06/2024 4:34 PM ESTAddended by: FARIHA JARVIS on: 01/06/2024 04:34 PM Modules accepted: Orders * Telephone Encounter - Fariha Jarvis CRNP - 01/06/2024 4:32 PM EST Called and spoke to patient. States she has not taken any of the oxycodone. Advised patient that she should not take any of the oxycodone in the future for pain. Patient states that she actually has not had any significant pain for the last few days. Has not taken any tylenol either. Does not feel she needs any alternative pain medication at this time. Will call the office if anything changes. * Telephone Encounter - Vivian Booker RN - 01/06/2024 1:22 PM EST Images from the original note were not included. Fariha: please advise. Thanks! * Telephone Encounter - Renetta Niño OSA - 01/06/2024 9:59 AM EST Sarah called regarding her Oxycodone she was prescribed by Fariha Jarvis on Saturday. She advised [facility] told her this medication could interfere with her Lybalvi and that it could give her chest pain, sweats, and muscle pain and she could have withdraw. Please contact pt at [phone]. Thank you. documented in this encounter Plan of Treatment Upcoming Encounters Date Type Department Care Team (Late st Contact Info) Description 01/10/2024 9:00 AM EST Laboratory Laboratory [address] [place] [phone] [place] [address] 01/23/2024 9:00 AM EST Laboratory Laboratory [address] [place] [address] [place] [address] 01/24/2024 9:00 AM EST Office Visit Hematology/Oncology [facility] 200 [facility] [place] [phone] Fariha Jarvis CRNP 400 [facility] [place] [address] 01/24/2024 9:30 AM EST Hem/Onc Treatment Hematology/Oncology Treatment, [place] [address] [place] [phone] Amparo, Chair [address] [facility] 200 [facility] [place] [address] 07/21/2024 8:30 AM EDT Office Visit Family Medicine [address] [place] [phone] [address] [place] [address] Health Maintenance Due Date Last Done Comments [...] 06/25/2022 Colorectal Cancer Screening 07/05/2025 Diabetes Screening 01/01/2027 01/02/2024, 1 , 11/27/2023, Additional history exists Lipid Panel 11/04/2028 11/05/2023, 03/22, 08/29/2022, Additional history exists Alpha-1 Antitrypsin Completed 11/05/2023 HPV (Gardasil) Vaccine Aged Out No lo nger eligible based on patient's age to complete this topic MENINGOCOCCAL (MENACTRA/MENVEO) Aged Out No longer eligible based on patient's age to complete this topic documented as of this encounter Medical Devices Implanted Type Area Senior Account Representative Device Identifier Shelf Expiration Date Model / Serial / Lot Device Perm Cntrl [id number] - [id number] Implanted:Qty: 2 on 09/30/2014 by Julio Ramírez MD at OR [facility] N/A: Fallopian Tube [employer] 03/02/2016 [id number] / / [id number] Description:Bilateral tubal documented as of this encounter Care Teams Sailboat Captain Relationship Specialty Start Date End Date Renetta Naidu DO [address] [place] [address] [place] [phone] PCP - General Internal Medicine 11/12/23 documented as of this encounter
--- OUTSIDE RECORDS SUMMARY | 2024-02-08 04:26 | External Medical Summary | Summary of Care ---
Author Name Unknown Organization [facility] Address [address] [place] [address] Phone [phone] Care Team Providers Care Hyperbaric Welder Diver Name Role Phone Renetta Naidu DO Primary Care Provider Reason for Visit * Reason Comments Chemotherapy C2/D1 - Keytruda, Al imta, Carboplatin * Episode Based Medications (Routine) - Authorized Specialty Diagnoses / Procedures Referred By Contac t Referred To Contact Diagnoses Encounter for antineoplastic chemotherapy Malignant neoplasm of upper lobe of right lung (HCC) Metastasis to mediastinal lymph node (HCC) Procedures SD CARBOPLATIN INJECTION SD INJ. PEMETREXED NOS 10MG SD FOSAPREPITANT INJECTION SD INJ PEMBROLIZUMAB Yogi Muñoz MD [address] [place] [address] [place] [address] Phone: tel: fax: Hematology/Oncology Treatment, [address] [address] Phone: tel: fax: Referral ID Status Reason Start Date Expiration Date V isits Requested Visits Authorized [id number] Authorized 12/06/2023 02/17/[phone] Encounter Details Date Type Department Care Team (Latest Contact Info) Description 01/03/2024 9:30 AM EST Hem/Onc Treatment Hematology/Oncolog y Treatment, [address] [address] Amparo, Chair 5 Hem Onc [address] [place], [place] [address] Encounter for antineoplastic chemotherapy*; Malignant neoplasm of [...] Overview (06/15/2022): [facility] with target LDL less than 100 [...] Description 02/13/2024 10:00 AM EST Laboratory Laboratory [address] [place] [phone] [address] [place] [address] 02/14/2024 8:30 AM EST Office Visit Hematology/Oncology [facility] [place] [address] [place] [phone] Consuelo Jarvis CRNP 400 [facility] [place] [address] 02/14/2024 9:00 AM EST Hem/Onc Treatment Hematology/Oncology Treatment, [place] 200 [facility] [place] [phone] Amparo, Chair 3 Hem Onc Scen[address] 200 [facility] [place] [address] 02/25/2024 7:45 AM EST Imaging Radiology [address], [place] 132 [facility] [place] [address] 03/04/2024 10:00 AM EST Laboratory Laboratory [address] [place] [phone] [address] [place] [address] 03/05/2024 8:30 AM EST Office Visit Hematology/Oncology [facility] [place] [address] [place] [phone] Yogi Muñoz MD [address] [place] [address] 03/05/2024 9:00 AM EST Hem/Onc Treatment Hematology/Oncology Treatment, [place] [address] [facility] [place] [phone] Amparo, Chair 3 Hem Onc [address] [place] [address] 07/21/2024 8:30 AM EDT Office Visit Family Medicine [address] [place] [phone] Renetta Naidu, [address] [place] [address] Health Maintenance Due Date Last Done Comments [...] this encounter Medical Devices Implanted Type Area Textile Knitter Device Identifier Shelf Expiration Date Model / Serial / Lot Device Perm Cntrl [id number] - [id number] Implanted:Qty: 2 on 09/30/2014 by Julio Ramírez MD at OR [facility] N/A: Fallopian Tube [employer] 03/02/2016 [id number] / / [id number] Description:Bilateral tubal documented as of this encounter [...] mL/hr documented in this encounter Care Teams Hyperbaric Welder Diver Relationship Specialty Start Date End Date Renetta Naidu DO [address] [place] [address] [place] [id number] PCP - General Internal Medicine 11/12/23 documented as of this encounter
--- OUTSIDE RECORDS SUMMARY | 2024-02-08 04:26 | External Medical Summary ---
Author Name Unknown Address Unknown Organization K01:[facility] - [facility] [address] [facility] [place] [address] Laboratory Report Ordering Provider Test Date Status JARED MAGAÑA 01/23/2024 08:35:11 Final Observation Date Value Abnormality Reference (Units ) Status WBC, Total 01/23/2024 08:35:11 6.28 4.00-10.80 (K/uL) Final RBC 01/23/2024 08:35:11 2.96 3.85-5.15 (M/uL) Final Hemoglobin 01/23/2024 08:35:11 9.9 Below low normal 12.0-15.3 (g/dL) Final HCT 01/23/2024 08:35:11 31.7 Below low normal 36.0-45.2 (%) Final MCV 01/23/2024 08:35:11 107.1 81.5-97.5 (fL) Final MCH 01/23/2024 08:35:11 33.4 27.0-34.0 (pg) Final MCHC 01/23/2024 08:35:11 31.2 32.0-36.0 (g/dL) Final RDW 01/23/2024 08:35:11 16.2 11.5-15.5 (%) Final Platelets 01/23/2024 08:35:11 261 140-400 (K/uL) Final MPV 01/23/2024 08:35:11 10.2 6.6-11.1 (fL) Final Nucleated erythrocytes/100 leukocytes [Ratio] in Blood by Automated count 01/23/2024 08:35:11 0 <=0 (/100 WBCs) Final Performing Location LABORATORY [facility] - [address] [place] [address]
--- OUTSIDE RECORDS SUMMARY | 2024-02-08 04:26 | External Medical Summary ---
Author Name Unknown Address Unknown Organization K01:[facility] [place] [facility] [address] [place] [address] Laboratory Report Ordering Provider Test Date Status JARED MAGAÑA 01/23/2024 08:35:11 Final Observation Date Value Abnormality Reference (Units ) Status SYNC LEUKOCYTES IN BLOOD BY AUTOMATED COUNT 01/23/2024 08:35:11 6.28 4.00-10.80 (K/uL) Final Segs 01/23/2024 08:35:11 70.5 40.0-75.0 (%) Final Lymphs % 01/23/2024 08:35:11 16.6 Below low normal 18.0-42.0 (%) Final Monos 01/23/2024 08:35:11 9.4 1.0-11.0 (%) Final Eosinophils 01/23/2024 08:35:11 1.4 0.0-6.0 (%) Final Basos 01/23/2024 08:35:11 0.8 0.0-2.0 (%) Final Immature Granulocyte, Percent 01/23/2024 08:35:11 1.3 0.0-2.0 (%) Final Absolute Segs 01/23/2024 08:35:11 4.43 1.80-7.70 (K/uL) Final Lymphs, absolute 01/23/2024 08:35:11 1.04 1.00-4.80 (K/ul) Final Monos, Abs 01/23/2024 08:35:11 0.59 0.00-1.10 (K/uL) Final Eos, Abs 01/23/2024 08:35:11 0.09 0.00-0.70 (K/uL) Final Basos, Abs 01/23/2024 08:35:11 0.05 0.00-0.20 (K/uL) Final Immature Granulocytes, Number 01/23/2024 08:35:11 0.08 0.00-0.20 (K/uL) Final Performing Location [facility] [place] - [facility] [place] [address] [facility] [address]
--- OUTSIDE RECORDS SUMMARY | 2024-02-08 04:26 | External Medical Summary ---
Author Name Unknown Address Unknown Organization K01:LABORATORY [facility] [place] - [address] [facility] [place] [address] Laboratory Report Ordering Provider Test Date Status MOISES FRIED 01/23/2024 08:35:11 Final Observation Date Value Abnormality Reference (Units ) Status Ferritin 01/23/2024 08:35:11 1125 Above high normal 13 -150 (ng/mL) Final Postmenopausal women have hi gher ferritin levels than pre-menopausal women. The above reference interval is based on pre-menopausal women. Performing Location LABORATORY [facility] [place] - [address] [place] [address]
--- OUTSIDE RECORDS SUMMARY | 2024-02-08 04:26 | External Medical Summary ---
Author Name Unknown Address Unknown Organization K01:[facility] [place] [address] [place] [address] Laboratory Report Ordering Provider Test Date Status JARED MAGAÑA 01/23/2024 08:35:11 Final Observation Date Value Abnormality Reference (Units ) Status BUN 01/23/2024 08:35:11 4 Below low normal 6-20 (mg/dL) Final Creatinine 01/23/2024 08:35:11 0.8 0.5-1.0 (mg/dL) Final Glomerular filtration rate/1.73 sq M.predicted [Volume Rate/Area] in Serum, Plasma or Blood by Creatinine-based formula (CKD-EPI) 01/23/2024 08:35:11 >90 >=60 (mL/min) Final eGFR is calculated based on the CKD-EPI 2020 equation. Sodium 01/23/2024 08:35:11 140 135-146 (m mol/L) Final Potassium 01/23/2024 08:35:11 4.6 3.5-5.1 (m mol/L) Final Cl 01/23/2024 08:35:11 101 98-107 (mm ol/L) Final CO2 01/23/2024 08:35:11 28 22-32 (mmo l/L) Final Anion gap 01/23/2024 08:35:11 11 7-15 (mmol /L) Final Glucose 01/23/2024 08:35:11 104 70-120 (mg /dL) Final Albumin 01/23/2024 08:35:11 3.1 Below low normal 3.8 -5.0 (g/dL) Final AST (Aspartate aminotransferase) 01/23/2024 08:35:11 28 10-35 (U/L) Fin al Alk Phos 01/23/2024 08:35:11 115 35-130 (U/ L) Final Bilirubin, Total 01/23/2024 08:35:11 0.3 <=1 .2 (mg/dL) Final Calcium 01/23/2024 08:35:11 8.5 8.4-10.2 ( mg/dL) Final Protein 01/23/2024 08:35:11 6.0 6.0-8.3 (g /dL) Final ALT (Alanine aminotransferase) 01/23/2024 08:35:11 22 10-35 (U/L) Pito cabrera Performing Location [facility] [place] [address] [facility] [address]
--- OUTSIDE RECORDS SUMMARY | 2024-02-08 04:26 | External Medical Summary ---
Author Name Unknown Address Unknown Organization K01:[facility] [place] [address] [facility] [place] [address] Laboratory Report Ordering Provider Test Date Status JARED MAGAÑA 01/13/2024 09:02:47 Final Observation Date Value Abnormality Reference (Units ) Status SYNC LEUKOCYTES IN BLOOD BY AUTOMATED COUNT 01/13/2024 09:02:47 2.46 Below low normal 4.00-10.80 (K/uL) Final Segs 01/13/2024 09:02:47 30.0 Below low normal 40.0-75.0 (%) Final Lymphs % 01/13/2024 09:02:47 47.6 Above high normal 18.0-42.0 (%) Final Monos 01/13/2024 09:02:47 17.1 Above high normal 1.0-11.0 (%) Final Eosinophils 01/13/2024 09:02:47 3.7 0.0-6.0 (%) Final Basos 01/13/2024 09:02:47 0.8 0.0-2.0 (%) Final Immature Granulocyte, Percent 01/13/2024 09:02:47 0.8 0.0-2.0 (%) Final Absolute Segs 01/13/2024 09:02:47 0.74 Below low normal 1.80-7.70 (K/uL) Final Lymphs, absolute 01/13/2024 09:02:47 1.17 1.00-4.80 (K/ul) Final Monos, Abs 01/13/2024 09:02:47 0.42 0.00-1.10 (K/uL) Final Eos, Abs 01/13/2024 09:02:47 0.09 0.00-0.70 (K/uL) Final Basos, Abs 01/13/2024 09:02:47 0.02 0.00-0.20 (K/uL) Final Immature Granulocytes, Number 01/13/2024 09:02:47 0.02 0.00-0.20 (K/uL) Final Performing Location [facility] [place] [facility] [address] [facility] [address]
--- OUTSIDE RECORDS SUMMARY | 2024-02-08 04:26 | External Medical Summary ---
Author Name Unknown Address Unknown Organization K01:LABORATORY [facility] [place] - [address] [place] [address] Laboratory Report Ordering Provider Test Date Status JARED MAGAÑA 01/23/2024 08:35:11 Final Observation Date Value Abnormality Reference (Units ) Status TSH 01/23/2024 08:35:11 2.19 0.27-4.20 (uIU/mL) Final Performing Location LABORATORY [facility] - [address] [place] [address]
--- OUTSIDE RECORDS SUMMARY | 2024-02-08 04:26 | External Medical Summary | Summary of Care ---
Author Name Unknown Organization [facility] Address [address] [address] Phone [phone] Care Team Providers Care Ict Customer Support Officer Name Role Phone Renetta Naidu DO Primary Care Provider Reason for Visit * Reason Comments Outpatient Testing Encounter Details Date Type Department Care Team (Late st Contact Info) Description 01/13/2024 9:10 AM EST Laboratory Laboratory [address] [place] [phone] [place] [address] Malignant neoplasm of upper lobe of right lung (HCC); Metastasis to mediastinal lymph node (HCC); Bipolar disorder, unspecified (HCC) Allergies No known active allergiesdocumented as of this encounter (statuses as of 01/13/2024) Medications lamoTRIgine 100 MG Oral Tablet (LaMICtal) [...] as needed for Nausea. 30 Tablet 2 Active LORazepam 0.5 MG Oral Tablet (Ativan)Indicat ions:Malignant neoplasm of upper lobe of right lung (HCC),Metastasi s to mediastinal lymph node (HCC) Take 1 tablet 1 hour prior to MRI. Can take additional tablet at MRI if needed 2 Tablet Active Hospital, Clinic, or Other Facility Administered [...] as of this encounter (statuses as of 01/13/2024) Active Problems Problem Noted Date Diagnosed Date [...] as of this encounter (statuses as of 01/13/2024) Resolved Problems Problem Noted Date Diagnosed Date Resolved Date Restrictive lung disease 06/15/2022 Depression 05/02/2012 06/15/2022 Generalized anxiety disorder 01/14/2012 06/15/2022 documented as of this encounter (statuses as of 01/13/2024) Immunizations Name Administration Dates Next Due Pneumococcal [...] on file documented as of this encounter Plan of Treatment Upcoming Encounters Date Type Department Care Team (Late st Contact Info) Description 01/23/2024 9:00 AM EST Laboratory Laboratory [address] [place] [phone] [place] [address] 01/24/2024 9:00 AM EST Office Visit Hematology/Oncology [address] [place] [phone] Consuelo Jarvis, COMPUTERIZED MACHINE FABRIC CUTTER [facility] [place] [address] 01/24/2024 9:30 AM EST Hem/Onc Treatment Hematology/Oncology Treatment, [address] [place] [phone] Amparo, Chair 8 Hem On[address] [place] [address] 07/21/2024 8:30 AM EDT Office Visit Family Medicine [address] [place] [phone] Renetta Naidu[address] [place] [address] Pending Results Name Type Priority Associated Diagnoses Date /Time CBC WITH WBC DIFFERENTIAL Lab STAT Malignant neoplasm of upper lobe of right lung (HCC) Metastasis to mediastinal lymph node (HCC) 01/13/2024 9:02 AM EST COMPREHENSIVE METABOLIC PANEL Lab STAT Malignant neoplasm of upper lobe of right lung (HCC) Metastasis to mediastinal lymph node (HCC) 01/13/2024 9:02 AM EST TSH WITH FREE T4 IF INDICATED Lab STAT Malignant neoplasm of upper lobe of right lung (HCC) Metastasis to mediastinal lymph node (HCC) Bipolar disorder, unspecified (HCC) 01/13/2024 9:02 AM EST CBC Lab STAT Malignant neoplasm of upper lobe of right lung (HCC) Metastasis to mediastinal lymph node (HCC) 01/13/2024 9:02 AM EST DIFFERENTIAL, AUTOMATED Lab STAT Malignant neoplasm of upper lobe of right lung (HCC) Metastasis to mediastinal lymph node (HCC) 01/13/2024 9:02 AM EST Health Maintenance Due Date Last Done Comments [...] this encounter Medical Devices Implanted Type Area Application Infrastructure Engineer Device Identifier Shelf Expiration Date Model / Serial / Lot Device Perm Cntrl [id number] - [id number] Implanted:Qty: 2 on 09/30/2014 by Julio Ramírez MD at OR [facility] N/A: Fallopian Tube [employer] 03/02/2016 [id number] / / [id number] Description:Bilateral tubal documented as of this encounter Visit Diagnoses Diagnosis Malignant neoplasm of upper lobe of right lung (HCC) Malignant neoplasm of upper lobe, bronchus or lung 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
--- OUTSIDE RECORDS SUMMARY | 2024-02-08 04:26 | External Medical Summary | Summary of Care ---
Author Name Unknown Organization [facility] Address [address] [facility] [place] [address] Phone [phone] Care Team Providers Care Industrial Relations Director Name Role Phone Renetta Naidu DO Primary Care Provider [phone] Reason for Visit * Reason Comments Outpatient Testing Encounter Details Date Type Department Care Team (Late st Contact Info) Description 01/23/2024 9:00 AM EST Laboratory Laboratory [address] [place] [phone] [place] [address] Malignant neoplasm of upper lobe of right lung (HCC); Metastasis to mediastinal lymph node (HCC); Bipolar disorder, unspecified (HCC) Allergies No known active allergiesdocumented as of this encounter (statuses as of 01/23/2024) Medications lamoTRIgine 100 MG Oral Tablet (LaMICtal) [...] as of this encounter (statuses as of 01/23/2024) Active Problems Problem Noted Date Diagnosed Date [...] as of this encounter (statuses as of 01/23/2024) Resolved Problems Problem Noted Date Diagnosed Date Resolved Date Restrictive lung disease 06/15/2022 Depression 05/02/2012 06/15/2022 Generalized anxiety disorder 01/14/2012 06/15/2022 documented as of this encounter (statuses as of 01/23/2024) Immunizations Name Administration Dates Next Due Pneumococcal [...] Team (Late st Contact Info) Description 01/24/2024 9:00 AM EST Office Visit Hematology/Oncology [facility] [place] [address] [place] [phone] Consuelo Jarvis CRNP [address] [facility] [place] [address] 01/24/2024 9:30 AM EST Hem/Onc Treatment Hematology/Oncology Treatment, [address] [place] [phone] Amparo, Chair 8 Hem On[address] [place] [address] 07/21/2024 8:30 AM EDT Office Visit Family Medicine [address] [place] [phone] [place] [address] Pending Results Name Type Priority Associated Diagnoses Date /Time CBC WITH WBC DIFFERENTIAL Lab STAT Malignant neoplasm of upper lobe of right lung (HCC) Metastasis to mediastinal lymph node (HCC) 01/23/2024 8:35 AM EST COMPREHENSIVE METABOLIC PANEL Lab STAT Malignant neoplasm of upper lobe of right lung (HCC) Metastasis to mediastinal lymph node (HCC) 01/23/2024 8:35 AM EST TSH WITH FREE T4 IF INDICATED Lab STAT Malignant neoplasm of upper lobe of right lung (HCC) Metastasis to mediastinal lymph node (HCC) Bipolar disorder, unspecified (HCC) 01/23/2024 8:35 AM EST CBC Lab STAT Malignant neoplasm of upper lobe of right lung (HCC) Metastasis to mediastinal lymph node (HCC) 01/23/2024 8:35 AM EST DIFFERENTIAL, AUTOMATED Lab STAT Malignant neoplasm of upper lobe of right lung (HCC) Metastasis to mediastinal lymph node (HCC) 01/23/2024 8:35 AM EST Health Maintenance Due Date Last [...] 06/25/2022 Colorectal Cancer Screening 07/05/2025 Diabetes Screening 01/12/2027 01/13/2024, 1 03/03/2023, 12/11/2023, Additional history exists Lipid Panel 11/04/2028 11/05/2023, 03/22, 08/29/2022, Additional history exists Alpha-1 Antitrypsin Completed 11/05/2023 HPV (Gardasil) Vaccine Aged Out No lo nger eligible based on patient's age to complete this topic MENINGOCOCCAL (MENACTRA/MENVEO) Aged Out No longer eligible based on patient's age to complete this topic documented as of this encounter Medical Devices Implanted Type Area Board Finisher Device Identifier Shelf Expiration Date Model / Serial / Lot Device Perm Cntrl [id number] - [id number] Implanted:Qty: 2 on 09/30/2014 by Julio Ramírez MD at OR [facility] N/A: Fallopian Tube [employer] 03/02/2016 [id number] / / [id number] Description:Bilateral tubal documented as of this encounter Visit Diagnoses Diagnosis Malignant neoplasm of upper lobe of right lung (HCC) Malignant neoplasm of upper lobe, bronchus or lung 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
--- OUTSIDE RECORDS SUMMARY | 2024-02-08 04:26 | External Medical Summary ---
Author Name Unknown Address Unknown Organization K01:LABORATORY [facility] [place] - [address] [place] [address] Laboratory Report Ordering Provider Test Date Status JARED MAGAÑA 01/13/2024 09:02:47 Final Observation Date Value Abnormality Reference (Units ) Status TSH 01/13/2024 09:02:47 2.47 0.27-4.20 (uIU/mL) Final Performing Location LABORATORY [facility] - [address] [place] [address]
--- OUTSIDE RECORDS SUMMARY | 2024-02-08 04:26 | External Medical Summary | Summary of Care ---
Author Name Unknown Organization [facility] Address [address] [place] [address] Phone [phone] Care Team Providers Care Loan Closer Name Role Phone Renetta Naidu DO Primary Care Provider [phone] Reason for Visit * Reason Comments Chemotherapy C2/D1 - Keytruda, [place] imta, Carboplatin * Episode Based Medications (Routine) - Authorized Specialty Diagnoses / Procedures Referred By Contac t Referred To Contact Diagnoses Encounter for antineoplastic chemotherapy Malignant neoplasm of upper lobe of right lung (HCC) Metastasis to mediastinal lymph node (HCC) Procedures IA CARBOPLATIN INJECTION IA INJ. PEMETREXED NOS 10MG IA FOSAPREPITANT INJECTION IA INJ PEMBROLIZUMAB Yogi Muñoz MD [address] [place] [address] [place] [address] Phone: tel: fax: Hematology/Oncology Treatment, [address] [address] Phone: tel: fax: Referral ID Status Reason Start Date Expiration Date V isits Requested Visits Authorized [id number] Authorized 12/06/2023 02/17/2099 [id number] Encounter Details Date Type Department Care Team (Latest Contact Info) Description 01/03/2024 9:30 AM EST Hem/Onc Treatment Hematology/Oncolog y Treatment, [address] [phone] Amparo, Chair 5 Hem Onc [address] [place], [place] [address] Encounter for antineoplastic chemotherapy*; Malignant neoplasm of [...] Overview (06/15/2022): [facility] with target LDL less than [...] Description 02/13/2024 10:00 AM EST Laboratory Laboratory [address] [place] [phone] [address] [place] [address] 02/14/2024 8:30 AM EST Office Visit Hematology/Oncology [facility] [place] [address] [place] [phone] Consuelo Jarvis CRNP [address] [facility] [place] [address] 02/14/2024 9:00 AM EST Hem/Onc Treatment Hematology/Oncology Treatment, [place] 200 [facility] [place] [phone] Amparo, Chair 3 Hem Onc Scenery 200 [facility] [place] [address] 02/25/2024 7:45 AM EST Imaging Radiology [address], [place] 132 [facility] [place] [address] 03/04/2024 10:00 AM EST Laboratory Laboratory [address] [place] [phone] [address] [place] [address] 03/05/2024 8:30 AM EST Office Visit Hematology/Oncology [facility] [place] [address] [place] [phone] Yogi Muñoz MD [address] [place] [address] 03/05/2024 9:00 AM EST Hem/Onc Treatment Hematology/Oncology Treatment, [place] [address] [facility] [place] [phone] Amparo, Chair 3 Hem Onc [address] [place] [address] 07/21/2024 8:30 AM EDT Office Visit Family Medicine [address] [place] [phone] Renetta Naidu, [address] [place] [address] Health Maintenance Due Date Last Done Comments [...] this encounter Medical Devices Implanted Type Area Healthcare Corporate Account Director Device Identifier Shelf Expiration Date Model / Serial / Lot Device Perm Cntrl [id number] - [id number] Implanted:Qty: 2 on 09/30/2014 by Julio Ramírez MD at OR [facility] N/A: Fallopian Tube [employer] 03/02/2016 [id number] / / [id number] Description:Bilateral tubal documented as of this encounter [...] mL/hr documented in this encounter Care Teams Loan Closer Relationship Specialty Start Date End Date Renetta Naidu DO [address] [place] [address] [place] [phone] PCP - General Internal Medicine 11/12/23 documented as of this encounter
--- OUTSIDE RECORDS SUMMARY | 2024-02-08 04:26 | External Medical Summary | Summary of Care ---
Author Name Unknown Organization [facility] Address [address] [place] [address] Phone [phone] Care Team Providers Care Radiocommunications Technician Name Role Phone Renetta Naidu DO Primary Care Provider [phone] Reason for Visit * Reason Comments Chemotherapy C2/D1 - Keytruda, [place], Carboplatin * Episode Based Medications (Routine) - Authorized Specialty Diagnoses / Procedures Referred By Contac t Referred To Contact Diagnoses Encounter for antineoplastic chemotherapy Malignant neoplasm of upper lobe of right lung (HCC) Metastasis to mediastinal lymph node (HCC) Procedures MI CARBOPLATIN INJECTION MI INJ. PEMETREXED NOS 10MG MI FOSAPREPITANT INJECTION MI INJ PEMBROLIZUMAB Yogi Muñoz MD [address] [place] [address] [place] [address] Phone: tel: fax: Hematology/Oncology Treatment, [address] [address] Phone: tel: fax: Referral ID Status Reason Start Date Expiration Date V isits Requested Visits Authorized [id number] Authorized 12/06/2023 02/17/2099 [id number] Encounter Details Date Type Department Care Team (Latest Contact Info) Description 01/03/2024 9:30 AM EST Hem/Onc Treatment Hematology/Oncolog y Treatment, [address] [phone] Amparo, Chair 5 Hem Onc Scenery [address] [place], [place] [address] Encounter for antineoplastic chemotherapy*; Malignant neoplasm of [...] Overview (06/15/2022): [facility] with target LDL less [...] Description 02/13/2024 10:00 AM EST Laboratory Laboratory [address] [place] [phone] [address] [place] [address] 02/14/2024 8:30 AM EST Office Visit Hematology/Oncology [facility] [place] [address] [place] [phone] Consuelo Jarvis CRNP 400 [facility] [place] [address] 02/14/2024 9:00 AM EST Hem/Onc Treatment Hematology/Oncology Treatment, [place] 200 [facility] [place] [phone] Amparo, Chair 3 Hem Onc Scenery 200 [facility] [place] [address] 02/25/2024 7:45 AM EST Imaging Radiology [address], [place] 132 [facility] [place] [address] 03/04/2024 10:00 AM EST Laboratory Laboratory [address] [place] [phone] [address] [place] [address] 03/05/2024 8:30 AM EST Office Visit Hematology/Oncology [facility] [place] [address] [place] [phone] Yogi Muñoz MD [address] [place] [address] 03/05/2024 9:00 AM EST Hem/Onc Treatment Hematology/Oncology Treatment, [place] [address] [facility] [place] [phone] Amparo, Chair 3 Hem Onc [address] [place] [address] 07/21/2024 8:30 AM EDT Office Visit Family Medicine [address] [place] [phone] Renetta Naidu, [address] [place] [address] Health Maintenance Due Date Last Done Comments [...] this encounter Medical Devices Implanted Type Area Tours Hostess Device Identifier Shelf Expiration Date Model / Serial / Lot Device Perm Cntrl [id number] - [id number] Implanted:Qty: 2 on 09/30/2014 by Julio Ramírez MD at OR [facility] N/A: Fallopian Tube [employer] 03/02/2016 [id number] / / [id number] Description:Bilateral tubal documented as of this encounter [...] mL/hr documented in this encounter Care Teams Radiocommunications Technician Relationship Specialty Start Date End Date Renetta Naidu DO [address] [place] [address] [place] [phone] PCP - General Internal Medicine 11/12/23 documented as of this encounter
--- OUTSIDE RECORDS SUMMARY | 2024-02-08 04:26 | External Medical Summary ---
Author Name Unknown Address Unknown Organization K01:LABORATORY [facility] [place] - [address] [place] [address] Laboratory Report Ordering Provider Test Date Status MOISES FRIED 01/23/2024 08:35:11 Final Observation Date Value Abnormality Reference (Units ) Status Iron 01/23/2024 08:35:11 42 33-151 (ug/dL) Final Iron-binding capacity 01/23/2024 08:35:11 181 Below low normal 250-425 (ug/dL) Final Transferrin Sat % 01/23/2024 08:35:11 23 15-55 (%) Final Performing Location LABORATORY C - [address] [place] [address]
--- OUTSIDE RECORDS SUMMARY | 2024-02-08 04:26 | External Medical Summary ---
Author Name Unknown Address Unknown Organization K01:[place] [facility] [place] [facility] [address] [facility] [address] [place] [address] Laboratory Report Ordering Provider Test Date Status JARED MAGAÑA 01/13/2024 09:02:47 Final Observation Date Value Abnormality Reference (Units ) Status WBC, Total 01/13/2024 09:02:47 2.46 Below low normal 4.00-10.80 (K/uL) Final RBC 01/13/2024 09:02:47 3.26 3.85-5.15 (M/uL) Final Hemoglobin 01/13/2024 09:02:47 11.1 Below low normal 12.0-15.3 (g/dL) Final HCT 01/13/2024 09:02:47 34.0 Below low normal 36.0-45.2 (%) Final MCV 01/13/2024 09:02:47 104.3 81.5-97.5 (fL) Final MCH 01/13/2024 09:02:47 34.0 27.0-34.0 (pg) Final MCHC 01/13/2024 09:02:47 32.6 32.0-36.0 (g/dL) Final RDW 01/13/2024 09:02:47 13.8 11.5-15.5 (%) Final Platelets 01/13/2024 09:02:47 80 Below low normal 140-400 (K/uL) Final MPV 01/13/2024 09:02:47 11.1 6.6-11.1 (fL) Final Nucleated erythrocytes/100 leukocytes [Ratio] in Blood by Automated count 01/13/2024 09:02:47 0 <=0 (/100 WBCs) Final Performing Location [place] [facility] [place] [address] [place] [address]
--- OUTSIDE RECORDS SUMMARY | 2024-02-08 04:26 | External Medical Summary | Summary of Care ---
Author Name Unknown Organization [facility] Address [address] [place] [address] Phone [phone] Care Team Providers Care Director Executive Communications Name Role Phone Renetta Naidu DO Primary Care Provider [phone] Reason for Visit * Reason Comments Chemotherapy Day 1, cycle 3 Keytr uda, alimta, carboplatin Medication Administration B 12 * Episode Based Medications (Routine) - Authorized Specialty Diagnoses / Procedures Referred By Contcathy t Referred To Contact Diagnoses Encounter for antineoplastic chemotherapy Malignant neoplasm of upper lobe of right lung (HCC) Metastasis to mediastinal lymph node (HCC) Procedures [place] CARBOPLATIN INJECTION [place] INJ. PEMETREXED NOS 10MG [place] FOSAPREPITANT INJECTION [place] INJ PEMBROLIZUMAB Yogi Muñoz MD [address] [place] [address] [place] [address] Phone: tel: fax: Hematology[place], [address] [address] Phone: tel: fax: Referral ID Status Reason Start Date Expiration Date V isits Requested Visits Authorized [id number] Authorized 12/06/2023 02/17/2099 [id number] Encounter Details Date Type Department Care Team (Latest Contact Info) Description 01/24/2024 9:30 AM EST Hem/Onc Treatment Hematology/Oncolog [place] [address], [address] [address] Amparo, Chair 8 Hem Onc Scene [address] [facility], [place] [id number] Encounter for antineoplastic chemotherapy*; Malignant neoplasm of upper lobe of right lung (HCC); Metastasis to mediastinal lymph node (HCC) Allergies No known active allergiesdocumented as of this encounter (statuses as of 01/24/2024) Medications lamoTRIgine 100 MG Oral Tablet (LaMICtal) [...] as of this encounter (statuses as of 01/24/2024) Active Problems Problem Noted Date Diagnosed Date Malignant neoplasm of upper lobe of right lung 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 Encounter for antineoplastic chemotherapy 2023 Mass of right lung 11/28/2023 Bipolar 1 disorder 06/15/2022 Overview (06/15/2022): [facility] Hyperlipidemia with target LDL less than 100 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 Patient tolerated well. IV site removed and dry dressing applied. Goals: Patient will remain free from injury. Possible barriers to meeting goals: ambulating with IV pole Stability of the patient: Moderately stable - low risk of patient condition declining or worsening Summary regarding today's goals: Met: Patient remained free from harm or injury during treatment. Patient left facility in stable condition. * Marianna Parker RN - 01/24/2024 9:35 AM EST Chair 9, patient here for day 1, cycle 3 treatment following provider appointment. Patient with no complaints at this time. IV started without difficulty, patient tolerated well. Chemotherapy/Immunotherapy agents: ALIMTA, CARBOPLATIN, and KEYTRUDA Consent for chemotherapy drug treatment complete, dated, and signed? yes, date - 12/06/23 Treatment lab parameters met? Yes Has treatment weight changed > than 10%? No Treatment preauthorized? Yes VITALS Filed Vitals: BP Readings from Last 2 Encounters: 01/24/24 115/73 01/03/24 111/73 Pulse Readings from Last 2 Encounters: 01/24/24 103 01/03/24 97 Resp Readings from Last 2 Encounters: 12/13/23 16 11/28/23 18 SpO2 Readings from Last 2 Encounters: 01/24/24 97% 01/03/24 95% Temp Readings from Last 2 Encounters: 01/24/24 36.3 C (97.4 F) (Tympanic) 01/03/24 36.3 C (97.4 F) (Tympanic) Urine protein: N/A Patient education completed for [...] Description 02/13/2024 10:00 AM EST Laboratory Laboratory [address] [place] [phone] [place] [address] 02/14/2024 8:30 AM EST Office Visit Hematology/Oncology [facility] [place] [address] [place] [phone] Consuelo Jarvis CRNP [address] [facility] [place] [address] 02/14/2024 9:00 AM EST Hem/Onc Treatment Hematology/Oncology Treatment, [place] [address] [place] [phone] Amparo, Chair 3 Hem Onc Scene 200 [facility] [place] [address] 02/25/2024 7:45 AM EST Imaging Radiology [address], [place] [address] [place] [address] 03/04/2024 10:00 AM EST Laboratory Laboratory [address] [place] [phone] [place] [address] 03/05/2024 8:30 AM EST Office Visit Hematology/Oncology [facility] [place] [address] [place] [phone] Yogi Muñoz MD [address] [place] [address] 03/05/2024 9:00 AM EST Hem/Onc Treatment Hematology/Oncology Treatment, [place] [address] [facility] [place] [address] Park, Chair 3 Hem Onc Scenery [address] [place] [address] 07/21/2024 8:30 AM EDT Office Visit Family Medicine [address] [place] [phone] [address] [place] [address] Health Maintenance Due Date Last Done Comments [...] this encounter Medical Devices Implanted Type Area General Internist And Physician Leader Device Identifier Shelf Expiration Date Model / Serial / Lot Device Perm Cntrl [id number] - [id number] Implanted:Qty: 2 on 09/30/2014 by Julio Ramírez MD at OR [facility] N/A: Fallopian Tube [employer] 03/02/2016 [id number] / / [id number] Description:Bilateral tubal documented as of this encounter Visit Diagnoses Diagnosis Encounter for antineoplastic chemotherapy- Primary Malignant neoplasm of upper lobe of right lung (HCC) Malignant neoplasm of upper lobe, bronchus or lung 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 documented in this encounter Administered Medications Active Administered Medications - up to 3 most recent administrations Medication Order MAR Action Action Date Dose Rate Site diphenhydrAMINE (Benadryl) inj 50 mg 50 mg, IV Push, ONCE PRN Other, Hypersensitivity Reaction, Starting on Sat01/24/24 at 0929, Until 01/25/24 at 0928, For 24 hoursIndications:Encounter for antineoplastic chemotherapy,Malignant neoplasm of upper lobe of right lung (HCC),Metastasis to mediastinal lymph node (HCC) EPINEPHrine 1 MG/ML inj 0.3 mg 0.3 mg, Intramuscular, ONCE PRN Other, Hypersensitivity Reaction or Anaphylaxis, Starting on Sat01/24/24 at 0929, Until 01/25/24 at 0928, For 24 hoursIndications:Encounter for antineoplastic chemotherapy,Malignant neoplasm of upper lobe of right lung (HCC),Metastasis to mediastinal lymph node (HCC) hEParin 100 UNIT/ML Lock Flush inj 500 Units 500 Units (5 mL), IV Lock, PRN Other, IV Flush, Starting on Sat01/24/24 at 0929, Until 01/25/24 at 0928, For 24 hours, Do not flush if lock, PICC, or central line not in place; IV infusing or unable to flush.Indications:Encounter for antineoplastic chemotherapy,Malignant neoplasm of upper lobe of right lung (HCC),Metastasis to mediastinal lymph node (HCC) Hydrocortisone Sod Suc (PF) (Solu-Cortef) inj 100 mg 100 mg, IV Push, ONCE PRN Other, Hypersensitivity Reaction, Starting on Sat01/24/24 at 0929, Until 01/25/24 at 0928, For 24 hoursIndications:Encounter for antineoplastic chemotherapy,Malignant neoplasm of upper lobe of right lung (HCC),Metastasis to mediastinal lymph node (HCC) LORAzepam (Ativan) tab 0.5 mg 0.5 mg, Oral, ONCE PRN Anxiety, Nausea, Starting on Sat01/24/24 at 1030, Until DiscontinuedIndications:Encount er for antineoplastic chemotherapy,Malignant neoplasm of upper lobe of right lung (HCC),Metastasis to mediastinal lymph node (HCC) meperidine (Demerol) 25 MG/ML inj 25 mg 25 mg, Intramuscular, ONCE PRN Shivering, Chills/Rigors from acute infusion reaction, Starting on Sat01/24/24 at 0929, Until 01/25/24 at 0928, For 24 hoursIndications:Encounter for antineoplastic chemotherapy,Malignant neoplasm of upper lobe of right lung (HCC),Metastasis to mediastinal lymph node (HCC) NSS infusion Intravenous, at 50 mL/hr, PRN, Starting on Sat01/24/24 at 1030, Until Discontinued, Maintenance lineIndications:Encounter for antineoplastic chemotherapy,Malignant neoplasm of upper lobe of right lung (HCC),Metastasis to mediastinal lymph node (HCC) Start Infusion 01/24/2024 9:42 AM EST 50 mL/hr oxygen GAS Inhalation, OXYGEN, First dose on Sat01/24/24 at 1000, Until Discontinued, Device/Managed by: Low Flow Device, Goal SPO2 (%): 91-95, Starting Device: Nasal Cannula, Initial Flow Rate (LPM): 2, Lowest Support: Nasal Cannula: Flow 0-6 LPM. Titrate up/down by 1 LPM., Higher Support: Non-Rebreather (NRB) Mask: Minimum of 10 LPM. Titrate to maintain bag inflation., Titration Interval: Q2 minutes and as needed., Notify Provider: For sudden DECREASE in resting SPO2 to less than 85% and when escalating delivery device., Wean patient off Oxygen when the oxygen saturation is greater than or equal to 93%Indications:Encounter for antineoplastic chemotherapy,Malignant neoplasm of upper lobe of right lung (HCC),Metastasis to mediastinal lymph node (HCC) sodium chloride 0.9 % flush central line 10 mL 10 mL, IV Push, PRN Other, IV Flush, Starting on Sat01/24/24 at 0929, Until 01/25/24 at 0928, For 24 hours, Do not flush if lock, PICC, or central line not in place; IV infusing or unable to flush.Indications:Encounter for antineoplastic chemotherapy,Malignant neoplasm of upper lobe of right lung (HCC),Metastasis to mediastinal lymph node (HCC) Inactive Administered Medications - up to 3 most recent administrations Medication Order MAR Action Action Date Dose Rate Site CARBOplatin (Paraplatin) 503 mg in D5W 250 mL infusion 503 mg (rounded from 502.5 mg, Target AUC = 5), IV Piggyback, at 510 mL/hr Administer over 30 Minutes, PROTECT FROM LIGHT Administer 30 min after Alimta complete (Max Creatinine Clearance at 125 ml/min for AUC dosing) Infuse 30min after pemetrexed is finished, ONCE, 1 dose, On Sat01/24/24 at 1145Indications:Encoun ter for antineoplastic chemotherapy,Malignant neoplasm of upper lobe of right lung (HCC),Metastasis to mediastinal lymph node (HCC) Start Infusion 01/24/2024 11:41 AM EST 503 mg 510 mL/hr Fosaprepitant Dimeglumine (Emend) 150 mg, ondansetron (Zofran) 16 mg, dexamethasone sodium phosphate 12 mg in NSS 250 mL Infusion 150 mg, IV Piggyback, ONCE, 1 dose, On Sat01/24/24 at 1030, Administer over 30 Minutes, Infuse over 30 minutes. Give 30 minutes prior to chemotherapy.Indicatio ns:Encounter for antineoplastic chemotherapy,Malignant neoplasm of upper lobe of right lung (HCC),Metastasis to mediastinal lymph node (HCC) Start Infusion 01/24/2024 9:44 AM EST 150 mg 538.4 mL/hr Pembrolizumab (Keytruda) 200 mg in NSS 100 mL infusion 200 mg, IV Piggyback, ONCE, 1 dose, On Sat01/24/24 at 1030, Administer over 30 Minutes, Infuse through 0.2 micron filter.Indications:Enc ounter for antineoplastic chemotherapy,Malignant neoplasm of upper lobe of right lung (HCC),Metastasis to mediastinal lymph node (HCC) Start Infusion 01/24/2024 10:21 AM EST 200 mg 226 mL/hr PEMEtrexed Disodium (Alimta) 800 mg in NSS 100 mL infusion 800 mg (rounded from 840 mg = 500 mg/m2 1.68 m2 Treatment Plan BSA from Recorded weight), IV Piggyback, ONCE, 1 dose, On Sat01/24/24 at 1100, Administer over 10 MinutesIndications:Enc ounter for antineoplastic chemotherapy,Malignant neoplasm of upper lobe of right lung (HCC),Metastasis to mediastinal lymph node (HCC) Start Infusion 01/24/2024 10:55 AM EST 800 mg 630 mL/hr Vitamin B-12 (Cyanocobalamin) inj 1,000 mcg 1,000 mcg, Intramuscular, ONCE, On Sat01/24/24 at 1200, For 1 doseIndications:[address] ter for antineoplastic chemotherapy,Malignant neoplasm of upper lobe of right lung (HCC),Metastasis to mediastinal lymph node (HCC) Given 01/24/2024 9:44 AM EST 1,000 mcg Arm Right Upper documented in this encounter Care Teams Director Executive Communications Relationship Specialty Start Date End Date Renetta Naidu DO [address] [place] [address] [place] [address] PCP - General Internal Medicine 11/12/23 documented as of this encounter
--- OUTSIDE RECORDS SUMMARY | 2024-02-08 04:26 | External Medical Summary ---
Author Name Unknown Address Unknown Organization [id number]:[facility] [place] [address] [place] [address] Laboratory Report Ordering Provider Test Date Status FARIHAMOISES 01/23/2024 08:35:11 Final Observation Date Value Abnormality Reference (Units ) Status Vitamin B12 01/23/2024 08:35:11 [phone] (pg/mL) Final Performing Location LABORATORY [facility] - [address] [place] [address]
--- OUTSIDE RECORDS SUMMARY | 2024-02-08 04:26 | External Medical Summary ---
Author Name Unknown Address Unknown Organization [id number][place] [place] [address] [facility] [place] [address] Laboratory Report Ordering Provider Test Date Status JARED MAGAÑA 01/13/2024 09:02:47 Final Observation Date Value Abnormality Reference (Units ) Status BUN 01/13/2024 09:02:47 6 6-20 (mg/dL) Final Creatinine 01/13/2024 09:02:47 0.6 0.5-1.0 (mg/dL) Final Glomerular filtration rate/1.73 sq M.predicted [Volume Rate/Area] in Serum, Plasma or Blood by Creatinine-based formula (CKD-EPI) 01/13/2024 09:02:47 >90 >=60 (mL/min) Final eGFR is calculated based on the CKD-EPI 2020 equation. Sodium 01/13/2024 09:02:47 138 135-146 (m mol/L) Final Potassium 01/13/2024 09:02:47 3.8 3.5-5.1 (m mol/L) Final Cl 01/13/2024 09:02:47 98 98-107 (mm ol/L) Final CO2 01/13/2024 09:02:47 27 22-32 (mmo l/L) Final Anion gap 01/13/2024 09:02:47 13 7-15 (mmol /L) Final Glucose 01/13/2024 09:02:47 98 70-120 (mg /dL) Final Albumin 01/13/2024 09:02:47 3.6 Below low normal 3.8 -5.0 (g/dL) Final AST (Aspartate aminotransferase) 01/13/2024 09:02:47 49 Above high normal 10-35 (U/L) Final Alk Phos 01/13/2024 09:02:47 116 35-130 (U/ L) Final Bilirubin, Total 01/13/2024 09:02:47 0.6 <=1 .2 (mg/dL) Final Calcium 01/13/2024 09:02:47 8.9 8.4-10.2 ( mg/dL) Final Protein 01/13/2024 09:02:47 6.0 6.0-8.3 (g /dL) Final ALT (Alanine aminotransferase) 01/13/2024 09:02:47 77 Above high normal 10-35 (U/L) Final Performing Location [facility] [place] [address] [facility] [address]
--- OUTSIDE RECORDS SUMMARY | 2024-02-08 04:26 | External Medical Summary | Summary of Care ---
Author Name Unknown Organization [facility] Address [address] [facility] [place] [address] Phone [phone] Care Team Providers Care Canvas Repairer Name Role Phone Renetta Naidu DO Primary Care Provider Reason for Referral * Precert (Within 24 hrs (call dept; emergent)) - Authorized Specialty Diagnoses / Procedures Referred By Contac t Referred To Contact Radiology Diagnoses Malignant neoplasm of upper lobe of right lung (HCC) Metastasis to mediastinal lymph node (HCC) 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) Procedures PET CT SKULL BASE TO MID-THIGH FDG Consuelo Jarvis CRNP [address] [place] [address] Phone: tel: fax: Referral ID Status Reason Start Date Expiration Date V isits Requested Visits Authorized [id number] Authorized 02/28/2024 [id number] Reason for Visit * Reason Comments Treatment Follow Up Encounter Details Date Type Department Care Team (Late st Contact Info) Description 01/24/2024 9:00 AM EST Office Visit Hematology/Oncology [address] [place] [address] [place] [address] Consuelo Jarvis CRNP [address] [place] [address] Malignant neoplasm of upper lobe of right lung (HCC)*; Metastasis to mediastinal lymph node (HCC); 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); Cancer related pain; Anemia due to antineoplastic chemotherapy; Encounter for antineoplastic chemotherapy Allergies No known active allergiesdocumented as of [...] Overview (06/15/2022): [facility] Hyperlipidemia with target LDL less than 100 [...] on file documented as of this encounter Last Filed Vital Signs Vital Sign Reading Time Taken Comments Blood Pressure 115/73 01/24/2024 8:46 AM EST Pulse 103 01/24/2024 8:46 AM EST Temperature 36.3 C (97.4 F) 01/24/2024 8:46 AM ES T Respiratory Rate - - Oxygen Saturation 97% 01/24/2024 8:46 AM EST Inhaled Oxygen Concentration - - Weight 66.5 kg (146 lb 8 oz) 01/24/2024 8:46 AM EST Height - - Body Mass Index 27.68 12/06/2023 12:06 PM EDT documented in this encounter Progress Notes * Matheus Consuelo JUAN Last - 01/24/2024 9:00 AM EST Hematology/Oncology Outpatient Clinic note [facility] Mclain [address] [place], [place] [address] Name: Sarah Ponce Date: 01/23/2024 CHIEF COMPLAINT: Sarah Ponce is a 48 year old female here today for f/u visit today. Patient of Dr. Yogi Muñoz. From Patient chart confirmed with patient. 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 NGS checkup (11/28/2023) -TMB 4.3 which is low -MSI stable -no actionable mutation -negative for EGFR and ROS1. DATE OF DIAGNOSIS: 11/28/23 CURRENT TREATMENT: Alimta, carboplatin, Keytruda every 21 days (12/13/23 - ) Vitamin B12 injection every 9 weekly Folic acid 1 mg every day. DIAGNOSTIC WORKUP: She has increasing shortness of breath, coughing, without hemoptysis and right shoulder pain for the last 5 months which is progressively getting worse, she was seen by Pulmonary, further workup as follows: CT scan of the chest without contrast on 11/20/2023: -spiculated right upper lobe mass measuring 2.8 x 2.2 cm close to the pleura -numerous additional bilateral lung nodules, largest one in the right upper lobe measuring about 1 cm. -extensive mediastinal right hilar lymphadenopathy ( right paratracheal lymph node measuring 3.8 x 3.5 cm, subcarinal and right hilar lymphadenopathy measuring 3.8 x 6.2 cm with encasement and luminal narrowing of the right mainstem bronchus as well as right upper lobe bronchus and bronchus intermedius, enlarged inferior paraesophageal lymph node, largest lymph node measuring 1.6 x 2.1 cm). -numerous hepatic hypodense lesions, largest one in the right lobe measuring 3.3 x 2.7 cm. -gastrohepatic lymphadenopathy measuring 1.2 x 0.9 cm. Bronchoscopic evaluation and EBUS on 11/28/2023: -right mainstem FNA--> non-small cell lung cancer, with neuroendocrine differential, consider for large cell neuroendocrine carcinoma - subcarinal lymph node --> non-small cell carcinoma with neuroendocrine differentiation. -FNA from 4 R--> non-small cell lung cancer with neuroendocrine differentiation. -PD-L1 --> 30%. Brain MRI done on 12/23/2023: - No evidence of metastatic disease. OTHER IMPORTANT HISTORY: -hyperlipidemia, she is on statin therapy. Today advised him to discontinue statin therapy. -GERD -bipolar and depression. She is on Lamictal and Lybalvi HISTORY OF PRESENT ILLNESS: Sarah Ponce is a 48 year old female with a history as outlined above. Currently here for f/u visit today and consideration for C3D1 of treatment.Patient feeling well today. No complaints or concerns. No further issues with rash. Ortega nausea or vomiting. Pain has totally resolved. Denies drinking alcohol. Is feeling a little more weak in the legs. Continues to hold her statin. Past Medical History: Diagnosis Date Bipolar 1 disorder (HCC) GERD (gastroesophageal reflux disease) Hyperlipidemia Panic disorder Past Surgical History: Procedure Laterality Date BREAST BIOPSY Left 2017 benign - no sedation BRONCHOSCOPY, DX W/ EBUS, 1-2 NODES N/A 11/28/2023 BRONCHOSCOPY, RIGID/FLEXIBLE, INCLUDE FLUORO GUIDANCE, WHEN PERFORMED; W/ EBUS GUIDED TRANSTRACH AND/OR TRANSBRONCH SAMPLING, 1 OR 2 MEDIASTINAL AND/OR HILAR LYMPH NODE STATIONS/STRUCTURES performed by Shiv Mann MD at OR [facility] HYSTEROSCOPY W/FALLOPIAN IMPLANTS N/A 09/30/2014 HYSTEROSCOPY SURGICAL BILATERAL FALLOPIAN TUBE performed by Julio Ramírez MD at [facility] INFORMATION cyst removal on chest. REMOVE GALLBLADDER Social History Socioeconomic History Marital status: Single Spouse name: Not on file Number of children: 1 Years of education: Not on file Highest education level: Not on file Occupational History Occupation: unemployed Occupation: Disability for learning disability Tobacco Use Smoking status: Every Day Current packs/day: 1.50 Average packs/day: 1.5 packs/day for 31.0 years (46.5 ttl pk-yrs) Types: Cigarettes Smokeless tobacco: Never Tobacco comments: 1 02/19 ppd. Every day smoker. 10/28/23. Vaping Use Vaping status: Never Used Substance and Sexual Activity Alcohol use: Not Currently Comment: occasionally Drug use: No Sexual activity: Yes Partners: Male control/protection: Injection Comment: depo Other Topics Concern Not on file Social History Narrative Not on file Social Needs Financial Resource Strain: Not on file Food Insecurity: Not on file Transportation Needs: Not on file Social Connections: Not on file Housing Stability: Not on file Review of patient's allergies indicates: No Known Allergies Current Outpatient Medications Medication Sig Dispense Refill lamoTRIgine 100 MG Oral Tablet (LaMICtal) TAKE 1 TABLET BY MOUTH 2 TIME(S) PER DAY Lybalvi 20-10 MG Oral Tablet ONE TABLET BY MOUTH AT BEDTIME FOR MOOD Trelegy Ellipta 200-62.5-25 MCG/ACT Aerosol Powder Breath Activated (Zjafpnwzuxs-Saxvlqrdvwiq-Pedcgwonqx) Inhale 1 Puff by mouth in the morning. 30 Blister Dosing Unit 5 Albuterol Sulfate HFA 108 (90 Base) MCG/ACT Inhalation Aerosol Solution Inhale 2 Puffs by mouth every 4 hours as needed for Wheezing. 18 g 1 Pantoprazole Sodium 40 MG Oral Tablet Delayed Release (Protonix) Take 1 Tablet by mouth in the morning. 30 minutes before the first meal of the day. Do not crush, split or chew the tablet. 30 Tablet 5 predniSONE 20 MG Oral Tablet (Deltasone) 2 tablets daily for 5 days then 1 tablet daily (Patient not taking: Reported on 11/26/2023) 15 Tablet 0 Rosuvastatin Calcium 10 MG Oral Tablet (Crestor) TAKE 1 TABLET BY MOUTH EVERY DAY IN THE MORNING 90Tablet 0 Folic Acid 1 MG Oral Tablet Take 1 Tablet by mouth in the morning. 30 Tablet 5 dexAMETHasone 4 MG Oral Tablet (Decadron) Take 4mg twice a day x3 days starting the day before chemotherapy 36 Tablet 0 Ondansetron HCl 8 MG Oral Tablet (Zofran) Take 1 Tablet by mouth every 8 hours as needed for Nausea. 30 Tablet 2 Prochlorperazine Maleate 10 MG Oral Tablet (Compazine) Take 1 Tablet by mouth every 6 hours as needed for Nausea. 30 Tablet 2 LORazepam 0.5 MG Oral Tablet (Ativan) Take 1 tablet 1 hour prior to MRI. Can take additional tabletat MRI if needed 2 Tablet 0 Current Facility-Administered Medications Medication Dose Route Frequency Provider Last Rate Last Admin Albuterol Sulfate (Proventil) (5 MG/ML) 0.5% *conc* inhalation solution 2.5 mg 2.5 mg Nebulizer PRN Albuterol Sulfate (Proventil) (2.5 MG/3ML) 0.083% inhalation solution 2.5 mg 2.5 mg Nebulizer PRN 2.5 mg at 11/20/23 1418 REVIEW OF SYSTEMS: See HPI - otherwise negative OBJECTIVE: Filed Vitals: 01/24/24 0846 BP: 115/73 Pulse: 103 Temp: 36.3 C (97.4 F) TempSrc: Tympanic SpO2: 97% Weight: 66.5 kg (146 lb 8 oz) Wt Readings from Last 5 Encounters: 01/24/24 66.5 kg (146 lb 8 oz) 01/03/24 64.8 kg (142 lb 12.8 oz) 12/13/23 65 kg (143 lb 3.2 oz) 12/11/23 66.1 kg (145 lb 11.2 oz) 12/06/23 65.8 kg (145 lb 1.6 oz) PHYSICAL EXAM: ECOG: Performance Status 1 = 80-90% Symptoms but nearly ambulatory General Appearance: No acute distress HEENT: Normal - No oral or pharyngeal masses, ulceration or thrush noted Lymph Nodes: Normal - No palpable lymph nodes in the neck or supraclavicular areas Lungs/Thorax: Clear and diminished to auscultation, intermittent rhonchi that clears Heart: Normal - Regular rate and rhythm, normal S1, S2, no appreciable murmurs Pulses/Extremities: Normal - 2+ throughout and symmetrical, no edema Neurologic: Normal - Grossly intact LABS: Results for orders placed or performed in visit on 01/23/24 COMPREHENSIVE METABOLIC PANEL Result Value Ref Range BUN 4 (L) 6 - 20 mg/dL CREATININE 0.8 0.5 - 1.0 mg/dL EGFR >90 >=60 mL/min SODIUM 140 135 - 146 mmol/L POTASSIUM 4.6 3.5 - 5.1 mmol/L CHLORIDE 101 98 - 107 mmol/L CO2 28 22 - 32 mmol/L ANION GAP 11 7 - 15 mmol/L GLUCOSE 104 70 - 120 mg/dL Albumin 3.1 (L) 3.8 - 5.0 g/dL AST 28 10 - 35 U/L Alkaline Phosphatase 115 35 - 130 U/L Bilirubin, Total 0.3 <=1.2 mg/dL CALCIUM 8.5 8.4 - 10.2 mg/dL Protein 6.0 6.0 - 8.3 g/dL ALT 22 10 - 35 U/L TSH WITH FREE T4 IF INDICATED Result Value Ref Range TSH 2.19 0.27 - 4.20 uIU/mL CBC Result Value Ref Range WBC 6.28 4.00 - 10.80 K/uL RBC 2.96 3.85 - 5.15 M/uL HGB 9.9 (L) 12.0 - 15.3 g/dL HCT 31.7 (L) 36.0 - 45.2 % MCV 107.1 81.5 - 97.5 fL MCH 33.4 27.0 - 34.0 pg MCHC 31.2 32.0 - 36.0 g/dL RDW 16.2 11.5 - 15.5 % PLT 261 140 - 400 K/uL MPV 10.2 6.6 - 11.1 fL nRBCs 0 <=0 /100 WBCs DIFFERENTIAL, AUTOMATED Result Value Ref Range WBC 6.28 4.00 - 10.80 K/uL Neutrophils % 70.5 40.0 - 75.0 % Lymphocytes % 16.6 (L) 18.0 - 42.0 % Monocytes % 9.4 1.0 - 11.0 % Eosinophils % 1.4 0.0 - 6.0 % Basophils % 0.8 0.0 - 2.0 % Immature Granulocytes % 1.3 0.0 - 2.0 % Absolute Neutrophils 4.43 1.80 - 7.70 K/uL Absolute Lymphocytes 1.04 1.00 - 4.80 K/ul Absolute Monocytes 0.59 0.00 - 1.10 K/uL Absolute Eosinophils 0.09 0.00 - 0.70 K/uL Absolute Basophils 0.05 0.00 - 0.20 K/uL Absolute Immature Granulocytes 0.08 0.00 - 0.20 K/uL IMPRESSION/PLAN: Non-small cell lung cancer, 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 Presents today for consideration for C3D1 of treatment. Lab results reviewed: CMP unremarkable Hgb has declined to 9.9 - added on ferritin, iron screen, vitamin b12 and folic acid Ok for treatment today as scheduled. Tolerating treatment plan well with no signs or symptoms of significant toxicity noted Pain has totally resolved! Patient confirms taking dexamethasone and folic acid as prescribed Will plan for restaging scans s/p C4 - PET/CT ordered to be completed in five weeks RTC in three weeks with provider for chemo return RTC in six weeks with physician for chemo return JUAN Gray documented in this encounter Nursing Notes * Talisha Tian, MED ASSIST - 01/24/2024 8:47 AM EST Patient identifed by name and birthdate Do you have any concerns about pain management for today's visit? Yes. Patient instructed to discuss pain concerns with provider during the visit today Living Will or Advance Directive for Health Care as noted on the problem list. [employer] is a way you can talk to your provider on line through e-mail. Would you like to sign up? I can activate it for you? ALREADY ACTIVE Filed Vitals: 01/24/24 0846 BP: 115/73 Pulse: 103 Temp: 36.3 C (97.4 F) TempSrc: Tympanic SpO2: 97% Weight: 66.5 kg (146 lb 8 oz) Patient was instructed to not get up on the exam table/exam chair until directed and assisted by their provider; patient is to remain seated in the chair/ wheelchair/ exam table/ exam chair for fall prevention and safety reasons. Patient is aware to have assistance to step down off exam table/exam chair with personnel. Patient voiced full comprehension of instructions. documented in this encounter Plan of Treatment Upcoming Encounters Date Type Department Care Team (Late st Contact Info) Description 02/13/2024 10:00 AM EST Laboratory Laboratory [address] [place] [phone] [place] [address] 02/14/2024 8:30 AM EST Office Visit Hematology/Oncology [address] [place] [address] Consuelo Jarvis CRNP [address] [place], [place] [address] [address] 02/14/2024 9:00 AM EST Hem/Onc Treatment Hematology/Oncology [address], [address] [phone] Amparo, Chair 3 Hem Onc [address] [place] [address] 07/21/2024 8:30 AM EDT Office Visit Family Medicine [address] [place] [phone] [place] [address] Pending Results Name Type Priority Associated Diagnoses Date /Time FERRITIN Lab Routine Anemia due to antineoplastic chemotherapy Encounter for antineoplastic chemotherapy 01/23/2024 8:35 AM EST IRON SCREEN, INCLUDING TIBC Lab Routine Anemia due to antineoplastic chemotherapy Encounter for antineoplastic chemotherapy 01/23/2024 8:35 AM EST VITAMIN B12 Lab Routine Anemia due to antineoplastic chemotherapy Encounter for antineoplastic chemotherapy 01/23/2024 8:35 AM EST FOLIC ACID Lab Routine Anemia due to antineoplastic chemotherapy Encounter for antineoplastic chemotherapy 01/23/2024 8:35 AM EST Scheduled Orders Name Type Priority Associated Diagnoses Orde r Schedule PET CT SKULL BASE TO MID-THIGH FDG Medical Imaging STAT Malignant neoplasm of upper lobe of right lung (HCC) Metastasis to mediastinal lymph node (HCC) 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) Expected: 02/28/2024 (Approximate), Expires: 07/24/2024 Health Maintenance Due Date Last Done Comments [...] shot) (#1) 2023 12/14/2011 Cologuard 07/05/2025 07/05/2022, 09/2022, 06/25/2022 Colorectal Cancer Screening 07/05/2025 Diabetes [...] this encounter Medical Devices Implanted Type Area Records Management Engineer Device Identifier Shelf Expiration Date Model / Serial / Lot Device Perm Cntrl [id number] - [id number] Implanted:Qty: 2 on 09/30/2014 by Julio Ramírez MD at OR [facility] N/A: Fallopian Tube [employer] 03/02/2016 [id number] / / [id number] Description:Bilateral tubal documented as of this encounter Visit Diagnoses Diagnosis Malignant neoplasm of upper lobe of right lung (HCC)- Primary Malignant neoplasm of upper lobe, bronchus or lung 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
--- OUTSIDE RECORDS SUMMARY | 2024-02-08 04:26 | External Medical Summary | Summary of Care ---
Author Name Unknown Organization [facility] Address [address] [place] [facility] [place] [address] Phone [phone] Care Team Providers Care Ip Litigation Associate Name Role Phone NaiduRenetta philip Primary Care Provider Reason for Visit * Reason Onset Date Comments Test Results Lab 01/15/2024 Encounter Details Date Type Department Care Team (Late st Contact Info) Description 01/15/2024 Telephone Hematology/Oncology [facility] 200 [facility] [place] [address] Yogi Muñoz MD [address] [facility] [id number] Test Results Lab Allergies No known active allergiesdocumented as of this encounter (statuses as of 01/15/2024) Medications lamoTRIgine 100 MG Oral Tablet (LaMICtal) [...] as of this encounter (statuses as of 01/15/2024) Active Problems Problem Noted Date Diagnosed Date [...] as of this encounter (statuses as of 01/15/2024) Resolved Problems Problem Noted Date Diagnosed Date Resolved Date Restrictive lung disease 06/15/2022 Depression 05/02/2012 06/15/2022 Generalized anxiety disorder 01/14/2012 06/15/2022 documented as of this encounter (statuses as of 01/15/2024) Immunizations Name Administration Dates Next Due Pneumococcal [...] encounter Miscellaneous Notes * Telephone Encounter - Armida Chin LPN - 01/15/2024 9:31 AM EST My G sent. * Telephone Encounter - Armida Chin LPN - 01/15/2024 9:27 AM EST ----- Message from Yogi Muñoz MD sent at 01/15/2024 8:18 AM EST ----- Blood workup done on 01/13/2024 -normal kidney function test noted -slight change in the AST and ALT noted but I would not consider significant skin change. She received 2nd cycle with carboplatin, Alimta and pembrolizumab on 01/03/2024. She will have another blood workup before the next cycle. documented in this encounter Plan of Treatment Upcoming Encounters Date Type Department Care Team (Late st Contact Info) Description 01/23/2024 9:00 AM EST Laboratory Laboratory [address] [place] [phone] [place] [address] 01/24/2024 9:00 AM EST Office Visit Hematology/Oncology [facility] 200 [facility] [place], [place] [address] Consuleo Jarvis CRNP [address] [facility] [place] [address] 01/24/2024 9:30 AM EST Hem/Onc Treatment Hematology/Oncology Treatment, [place] [facility] [phone] Amparo, Chair 8 Hem Onc [facility] [address] [facility] [place] [place] [address] 07/21/2024 8:30 AM EDT Office Visit Family Medicine [address] [phone] [address] [place] [address] Health Maintenance Due Date Last Done Comments [...] this encounter Medical Devices Implanted Type Area Sales Assistants And Salespersons Device Identifier Shelf Expiration Date Model / Serial / Lot Device Perm Cntrl [id number] - [id number] Implanted:Qty: 2 on 09/30/2014 by Julio Ramírez MD at OR [facility] N/A: Fallopian Tube [employer] 03/02/2016 [id number] / / [id number] Description:Bilateral tubal documented as of this encounter Care Teams Ip Litigation Associate Relationship Specialty Start Date End Date Renetta Naidu DO [address] [place] [address] [place] [address] PCP - General Internal Medicine 11/12/23 documented as of this encounter
--- OUTSIDE RECORDS SUMMARY | 2024-02-08 04:26 | External Medical Summary ---
Author Name Unknown Address Unknown Organization [id number] [place] [address] [place] [address] Laboratory Report Ordering Provider Test Date Status FARIHAMOISES 01/23/2024 08:35:11 Final Observation Date Value Abnormality Reference (Units ) Status Folic Acid 01/23/2024 08:35:11 >20.0 >4.5 (ng/ mL) Final Performing Location LABORATORY [facility] - [address] [place] [address]
--- OUTSIDE RECORDS SUMMARY | 2024-02-08 04:27 | External Medical Summary ---
Author Name Unknown Address Unknown Organization [id number][place] [place] [address] [facility] [place] [address] Laboratory Report Ordering Provider Test Date Status JARED MAGAÑA 01/02/2024 08:53:10 Final Observation Date Value Abnormality Reference (Units ) Status SYNC LEUKOCYTES IN BLOOD BY AUTOMATED COUNT 01/02/2024 08:53:10 8.45 4.00-10.80 (K/uL) Final Segs 01/02/2024 08:53:10 59.1 40.0-75.0 (%) Final Lymphs % 01/02/2024 08:53:10 28.3 18.0-42.0 (%) Final Monos 01/02/2024 08:53:10 10.7 1.0-11.0 (%) Final Eosinophils 01/02/2024 08:53:10 0.2 0.0-6.0 (%) Final Basos 01/02/2024 08:53:10 0.8 0.0-2.0 (%) Final Immature Granulocyte, Percent 01/02/2024 08:53:10 0.9 0.0-2.0 (%) Final Absolute Segs 01/02/2024 08:53:10 4.99 1.80-7.70 (K/uL) Final Lymphs, absolute 01/02/2024 08:53:10 2.39 1.00-4.80 (K/ul) Final Monos, Abs 01/02/2024 08:53:10 0.90 0.00-1.10 (K/uL) Final Eos, Abs 01/02/2024 08:53:10 0.02 0.00-0.70 (K/uL) Final Basos, Abs 01/02/2024 08:53:10 0.07 0.00-0.20 (K/uL) Final Immature Granulocytes, Number 01/02/2024 08:53:10 0.08 0.00-0.20 (K/uL) Final Performing Location [facility] [place] [address] [facility] [address]
--- OUTSIDE RECORDS SUMMARY | 2024-02-08 04:27 | External Medical Summary | Summary of Care ---
Author Name Unknown Organization [facility] Address [address] [place] [address] Phone [phone] Care Team Providers Care Academic Hospitalist Name Role Phone NaiduRenetta DO Primary Care Provider Reason for Visit * Reason Comments Chemotherapy Chemo/recheck Encounter Details Date Type Department Care Team (Late st Contact Info) Description 01/03/2024 9:00 AM EST Office Visit Hematology/Oncology [facility] [place] [address] [facility] [place] [address] Consuelo Jarvis CRNP [address] [facility] [place] [address] Malignant neoplasm of upper lobe of right lung (HCC)*; Metastasis to mediastinal lymph node (HCC); 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); Cancer related pain Allergies No known active allergiesdocumented as of this encounter (statuses as of 01/04/2024) Medications lamoTRIgine 100 MG Oral Tablet (LaMICtal) [...] MRI if needed 2 Tablet 4 Active oxyCODONE HCl 5 MG Oral Tablet (Oxy IR)Indications: Cancer related pain Take 1 Tablet by mouth every 6 hours as needed for Pain, Severe. 30 Tablet 4 Active Hospital, Clinic, or Other [...] as of this encounter (statuses as of 01/04/2024) Active Problems Problem Noted Date Diagnosed Date [...] as of this encounter (statuses as of 01/04/2024) Resolved Problems Problem Noted Date Diagnosed Date Resolved Date Restrictive lung disease 06/15/2022 Depression 05/02/2012 06/15/2022 Generalized anxiety disorder 01/14/2012 06/15/2022 documented as of this encounter (statuses as of 01/04/2024) Immunizations Name Administration Dates Next Due Pneumococcal [...] = 0.6 oz pur e alcohol) occasionally Utilities Answer Date Recorded Do you have trouble paying y our heating, water, or electric bill? (Adult - for ages 18 years and over) Not on file 08/06/2023 Is your family able to pay t he heat, water, or electric bill? (Household - for ages 0-17 years) Not on file 08/06/2023 Does your family have access to good internet? (Household - for ages 0-17 years) Not on file 08/06/2023 Social Connections Answer Date Recorded How often do you feel lonely or isolated from those around you? (Adult - for ages 18 years and over) Not on file 08/06/2023 Comments No Sex and Gender Information Value [...] Sign Reading Time Taken Comments Blood Pressure 111/73 01/03/2024 8:56 AM EST Pulse 97 01/03/2024 8:56 AM EST Temperature 36.3 C (97.4 F) 01/03/2024 8:56 AM ES T Respiratory Rate - - Oxygen Saturation 95% 01/03/2024 8:56 AM EST Inhaled Oxygen Concentration - - Weight 64.8 kg (142 lb 12.8 oz) 01/03/2024 8:56 AM EST Height - - Body Mass Index 26.98 12/06/2023 12:06 PM EDT documented in this encounter Progress Notes * Consuelo Jarvis CRNP - 01/03/2024 9:00 AM EST Hematology/Oncology Outpatient Clinic note [facility] [address] [place], [place] [address] Name: Sarah Ponce Date: 01/02/2024 CHIEF COMPLAINT: Sarah Ponce is a 48 year old female here today for f/u visit today. Patient of Dr. Yogi Muñoz. From Patient chart confirmed with patient. From Dr. Yogi Muñoz note 12/11/23. HEMATOLOGY/ONCOLOGY DIAGNOSIS: Non-small cell lung cancer, large [...] for f/u visit today and consideration for C2D1 of treatment. Patient feeling well today. No complaints or concerns. Did get a rash about a week ago. On right hip area. Small red bumps. Denies itching or pain. Does seem to be getting less red. Ortega nausea or vomiting. Taking about 2,000 mg of tylenol for rightshoulder pain. Denies drinking alcohol. Past Medical History: Diagnosis Date Bipolar 1 [...] performed by Shiv Mann MD at OR [facility] HYSTEROSCOPY W/FALLOPIAN IMPLANTS N/A 09/30/2014 HYSTEROSCOPY SURGICAL BILATERAL FALLOPIAN TUBE performed by Julio Ramírez MD at OR [facility] INFORMATION cyst removal on chest. REMOVE GALLBLADDER [...] Transportation Needs: Not on file Social Connections: Unknown (08/06/2023) Social Connections How often do you feel lonely or isolated from those around you? (Adult - for ages 18 years and over): Not on file Housing Stability: Not on file Review of patient's allergies indicates: No Known Allergies Current Outpatient Medications Medication Sig Dispense Refill lamoTRIgine 100 MG Oral Tablet (LaMICtal) TAKE 1 TABLET BY MOUTH 2 TIME(S) PER DAY Lybalvi 20-10 MG Oral Tablet ONE TABLET BY MOUTH AT BEDTIME FOR MOOD Trelegy Ellipta 200-62.5-25 MCG/ACT Aerosol Powder Breath Activated (Sihhkpzocmc-Eczcfmcfdauf-Tgmaklywun) Inhale 1 Puff by mouth in the [...] HPI - otherwise negative OBJECTIVE: Filed Vitals: 01/03/24 0856 BP: 111/73 Pulse: 97 Temp: 36.3 C (97.4 F) TempSrc: Tympanic SpO2: 95% Weight: 64.8 kg (142 lb 12.8 oz) Wt Readings from Last 5 Encounters: 01/03/24 64.8 kg (142 lb 12.8 oz) 12/13/23 65 kg (143 lb 3.2 oz) 12/11/23 66.1 kg (145 lb 11.2 oz) 12/06/23 65.8 kg (145 lb 1.6 oz) 11/28/23 67.6 kg (149 lb) PHYSICAL EXAM: ECOG: Performance Status 1 = 80-90% Symptoms but nearly ambulatory General Appearance: No acute distress HEENT: +mild oral thrush Lymph Nodes: Normal - No palpable lymph nodes in the neck or supraclavicular areas Lungs/Thorax: Normal - Clear to auscultation Heart: Normal - Regular rate and rhythm, normal S1, S2, no appreciable murmurs Pulses/Extremities: Normal - 2+ throughout and symmetrical, no edema Skin: mild papular rash present to right posterior hip area Neurologic: Normal - Grossly intact LABS: Results for orders placed or performed in visit on 01/02/24 COMPREHENSIVE METABOLIC PANEL Result Value Ref Range BUN 6 6 - 20 mg/dL CREATININE 0.7 0.5 - 1.0 mg/dL EGFR >90 >=60 mL/min SODIUM 140 135 - 146 mmol/L POTASSIUM 4.3 3.5 - 5.1 mmol/L CHLORIDE 101 98 - 107 mmol/L CO2 23 22 - 32 mmol/L ANION GAP 16 (H) 7 - 15 mmol/L GLUCOSE 108 70 - 120 mg/dL Albumin 3.3 (L) 3.8 - 5.0 g/dL AST 49 (H) 10 - 35 U/L Alkaline Phosphatase 150 (H) 35 - 130 U/L Bilirubin, Total 0.2 <=1.2 mg/dL CALCIUM 9.2 8.4 - 10.2 mg/dL Protein 6.4 6.0 - 8.3 g/dL ALT 59 (H) 10 - 35 U/L TSH WITH FREE T4 IF INDICATED Result Value Ref Range TSH 2.24 0.27 - 4.20 uIU/mL CBC Result Value Ref Range WBC 8.45 4.00 - 10.80 K/uL RBC 4.11 3.85 - 5.15 M/uL HGB 13.7 12.0 - 15.3 g/dL HCT 43.2 36.0 - 45.2 % MCV 105.1 81.5 - 97.5 fL MCH 33.3 27.0 - 34.0 pg MCHC 31.7 32.0 - 36.0 g/dL RDW 14.3 11.5 - 15.5 % PLT 382 140 - 400 K/uL MPV 10.0 6.6 - 11.1 fL nRBCs 0 <=0 /100 WBCs DIFFERENTIAL, AUTOMATED Result Value Ref Range WBC 8.45 4.00 - 10.80 K/uL Neutrophils % 59.1 40.0 - 75.0 % Lymphocytes % 28.3 18.0 - 42.0 % Monocytes % 10.7 1.0 - 11.0 % Eosinophils % 0.2 0.0 - 6.0 % Basophils % 0.8 0.0 - 2.0 % Immature Granulocytes % 0.9 0.0 - 2.0 % Absolute Neutrophils 4.99 1.80 - 7.70 K/uL Absolute Lymphocytes 2.39 1.00 - 4.80 K/ul Absolute Monocytes 0.90 0.00 - 1.10 K/uL Absolute Eosinophils 0.02 0.00 - 0.70 K/uL Absolute Basophils 0.07 0.00 - 0.20 K/uL Absolute Immature Granulocytes 0.08 0.00 - 0.20 K/uL IMPRESSION/PLAN: Non-small cell lung cancer, 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 Presents today for consideration for C2D1 of treatment. Lab results reviewed: Mild increase in LFTs with AST 49, ALT 59 and alk phos 150 Otherwise unremarkable Reviewed case with Dr. Yogi Muñoz: Ok for treatment today as scheduled. Advised patient to avoid taking further tylenol at this time. Should also continue to hold her statin. For treatment of cancer related pain new prescription sent for Oxycodone 5 mg Q6H PRN. -I have reviewed the patients controlled substance dispensing history in the Prescription Drug Monitoring Program in compliance with the [facility] regulations before prescribing a controlled substance. Will repeat CMP in one week. Patient confirms taking dexamethasone and folic acid as prescribed Will plan for restaging scans s/p C4 RTC in three weeks with provider for chemo return JUAN Gray documented in this encounter Nursing Notes * Krystal Carter CMA - 01/03/2024 8:56 AM EST Patient identifed by name and birthdate Do you have any concerns about pain management for today's visit? No Living Will or Advance Directive for Health Care as noted on the problem list. [facility] is a way you can talk to your provider on line through e-mail. Would you like to sign up? I can activate it for you? ALREADY ACTIVE Filed Vitals: 01/03/24 0856 BP: 111/73 Pulse: 97 Temp: 36.3 C (97.4 F) TempSrc: Tympanic SpO2: 95% Weight: 64.8 kg (142 lb 12.8 oz) Patient was instructed to not get [...] Description 01/10/2024 9:00 AM EST Laboratory Laboratory [address] [place] [phone] [place] [address] 01/23/2024 9:00 AM EST Laboratory Laboratory [address] [place] [phone] [place] [address] 01/24/2024 9:00 AM EST Office Visit Hematology/Oncology [address] [place] [phone] Consuelo Jarvis CRNP [address] [place] [address] [place] [address] 01/24/2024 9:30 AM EST Hem/Onc Treatment Hematology/Oncology Treatment, [place] 200 [facility] [place] [phone] Amparo Chair 8 Hem Onc [address] [place] [address] 07/21/2024 8:30 AM EDT Office Visit Family Medicine [address] [place] [phone] Renetta Naidu, [address] [place] [address] Health Maintenance Due Date Last Done Comments [...] this encounter Medical Devices Implanted Type Area Production Line Mechanic Device Identifier Shelf Expiration Date Model / Serial / Lot Device Perm Cntrl [id number] - [id number] Implanted:Qty: 2 on 09/30/2014 by Julio Ramírez MD at OR [facility] N/A: Fallopian Tube [employer] 03/02/2016 [id number] / / [id number] Description:Bilateral tubal documented as of this encounter Visit Diagnoses Diagnosis Malignant neoplasm of upper lobe of right lung (HCC)- Primary Malignant neoplasm of upper lobe, bronchus or lung 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
--- OUTSIDE RECORDS SUMMARY | 2024-02-08 04:27 | External Medical Summary | Summary of Care ---
Author Name Unknown Organization [facility] Address [address] [place] [address] Phone [phone] Care Team Providers Care Compliance Director Name Role Phone Renetta Naidu DO Primary Care Provider Reason for Visit * Reason Comments Chemotherapy Keytruda/Alimta/Carb o D1C1 * Episode Based Medications (Routine) - Authorized Specialty Diagnoses / Procedures Referred By Contac t Referred To Contact Diagnoses Encounter for antineoplastic chemotherapy Malignant neoplasm of upper lobe of right lung (HCC) Metastasis to mediastinal lymph node (HCC) Procedures WI CARBOPLATIN INJECTION WI INJ. PEMETREXED NOS 10MG [place] FOSAPREPITANT INJECTION WI INJ PEMBROLIZUMAB Yogi Muñoz MD [address] [place] [address] [place] [address] Phone: tel: fax: Hematology[place]cology [address] [address] Phone: tel: fax: Referral ID Status Reason Start Date Expiration Date V isits Requested Visits Authorized [id number] Authorized 12/06/2023 02/17/2099 [id number] Encounter Details Date Type Department Care Team (Latest Contact Info) Description 12/13/2023 8:45 AM EDT Hem/Onc Treatment Hematology[place]olog [place] [address] [address] Amparo, Chair 2 Hem Onc [address] [place], [place] [address] Encounter for antineoplastic chemotherapy*; Malignant neoplasm of upper lobe of right lung (HCC); Metastasis to mediastinal lymph node (HCC) Allergies No known active allergiesdocumented as of this encounter (statuses as of 12/30/2023) Medications lamoTRIgine 100 MG Oral Tablet (LaMICtal) [...] for Nausea. 30 Tablet 2 4 Active Hospital, Clinic, or Other Facility [...] as of this encounter (statuses as of 12/30/2023) Active Problems Problem Noted Date Diagnosed Date [...] as of this encounter (statuses as of 12/30/2023) Resolved Problems Problem Noted Date Diagnosed Date Resolved Date Restrictive lung disease 06/15/2022 Depression 05/02/2012 06/15/2022 Generalized anxiety disorder 01/14/2012 06/15/2022 documented as of this encounter (statuses as of 12/30/2023) Immunizations Name Administration Dates Next Due Pneumococcal [...] Sign Reading Time Taken Comments Blood Pressure 114/79 12/13/2023 9:27 AM EDT Pulse 83 12/13/2023 9:27 AM EDT Temperature 36.1 C (96.9 F) 12/13/2023 9:27 AM ED T Respiratory Rate 16 12/13/2023 9:27 AM EDT Oxygen Saturation 97% 12/13/2023 9:27 AM EDT Inhaled Oxygen Concentration - - Weight 65 kg (143 lb 3.2 oz) 12/13/2023 9:27 AM EDT Height - - Body Mass Index 27.06 12/06/2023 12:06 PM EDT documented in this encounter Nursing Notes * Suzi Costa RN - 12/13/2023 3:22 PM EDT Pt completed treatment without issues. PIV removed. Goals: Pt will remain free from injury. Possible barriers to meeting goals: risk of reaction, ambulation with IV pole Stability of the patient: Moderately stable - low risk of patient condition declining or worsening Summary regarding today's goals: Met: . Pt remained free from injury during treatment today. Discharged in stable condition. * Suzi Costa RN - 12/13/2023 9:28 AM EDT Chair 12 Chemotherapy/Immunotherapy agents: ALIMTA, CARBOPLATIN, and KEYTRUDA Consent for chemotherapy drug treatment complete, dated, and signed? yes, date - 12/06/23 Treatment lab parameters met? Yes Has treatment weight changed > than 10%? No Treatment preauthorized? Yes VITALS Filed Vitals: 12/13/23 0927 BP: 114/79 Pulse: 83 Resp: 16 Temp: 36.1 C (96.9 F) SpO2: 97% Weight: 65 kg (143 lb 3.2 oz) Urine protein: N/A Patient education completed for treatment? Yes Blood transfusion consent signed and complete? NA Return appointment scheduled? Yes Patient had provider visit today? No - If no provider visit must complete Pretreatment Assessment PRE-TREATMENT ASSESSMENT: NEURO: denies symptoms CV/RESP: denies symptoms GI/: constipation: ongoing OTHER: denies any additional symptoms PAIN: 5-6 pain location : R shoulder ; pt takes Tylenol which she states is effective PIV established; NSS infusing. Safety and Risk for Injury Patient will remain free from injury. Ensure appropriate safety devices are available. Provide and maintain safe environment. Functional Status: Functional status at today's visit: [...] potential parra while using the heat function. documented in this encounter Plan of Treatment Upcoming Encounters Date Type Department Care Team (Late st Contact Info) Description 01/02/2024 9:00 AM EST Laboratory Laboratory [address] [place] [phone] [place] [address] 01/03/2024 9:00 AM EST Office Visit Hematology/Oncology [address] [place] [phone] Consuelo Jarvis CRNP [address] [place] [address] [place] [address] 01/03/2024 9:30 AM EST Hem/Onc Treatment Hematology/Oncology Treatment, [address] [place] [phone] Amparo, Chair 5 Hem Onc [address] [place] [address] 07/21/2024 8:30 AM EDT Office Visit Family Medicine [address] [place] [phone] Renetta Naidu, [address] [place] [address] Health Maintenance Due [...] shot) (#1) 2023 12/14/2011 Cologuard 07/05/2025 07/05/2022, 0509/2022, 06/25/2022 Colorectal Cancer Screening 07/05/2025 Diabetes Screening 12/10/2026 12/11/2023, 1 , 11/05/2023, Additional history exists Lipid Panel 11/04/2028 11/05/2023, 03/22, 08/29/2022, Additional history exists Alpha-1 Antitrypsin Completed 11/05/2023 HPV (Gardasil) Vaccine Aged Out No lo nger eligible based on patient's age to complete this topic MENINGOCOCCAL (MENACTRA/MENVEO) Aged Out No longer eligible based on patient's age to complete this topic documented as of this encounter Medical Devices Implanted Type Area Lead Java [id number] Developer Device Identifier Shelf Expiration Date Model / Serial / Lot Device Perm Cntrl [id number] - [id number] Implanted:Qty: 2 on 09/30/2014 by Julio Ramírez MD at OR [facility] N/A: Fallopian Tube [employer] 03/02/2016 [id number] / / [id number] Description:Bilateral tubal documented as of this encounter [...] pemetrexed is finished, ONCE, 1 dose, On Sat12/13/23 at 1130Indications:Encounter for antineoplastic chemotherapy,Malignant neoplasm of upper lobe of right lung (HCC),Metastasis to mediastinal lymph node (HCC) Start Infusion 12/13/2023 11:53 AM EDT 557 mg 510 mL/hr Fosaprepitant Dimeglumine (Emend) 150 mg, ondansetron (Zofran) 16 mg, dexamethasone sodium phosphate 12 mg in NSS 250 mL Infusion 150 mg, IV Piggyback, ONCE, 1 dose, On Sat12/13/23 at 1015, Administer over 30 Minutes, Infuse over 30 minutes. Give 30 minutes prior to chemotherapy.Indications:En counter for antineoplastic chemotherapy,Malignant neoplasm of upper lobe of right lung (HCC),Metastasis to mediastinal lymph node (HCC) Start Infusion 12/13/2023 9:17 AM EDT 150 mg 538.4 mL/hr NSS infusion Intravenous, at 50 mL/hr, PRN, Starting on Sat12/13/23 at 1015, Until Sat12/13/23 at 1926, Maintenance lineIndications:Encounter for antineoplastic chemotherapy,Malignant neoplasm of upper lobe of right lung (HCC),Metastasis to mediastinal lymph node (HCC) Start Infusion 12/13/2023 9:15 AM EDT 50 mL/hr Pembrolizumab (Keytruda) 200 mg in NSS 100 mL infusion 200 mg, IV Piggyback, ONCE, 1 dose, On Sat12/13/23 at 1015, Administer over 30 Minutes, Infuse through 0.2 micron filter.Indications:Encounte r for antineoplastic chemotherapy,Malignant neoplasm of upper lobe of right lung (HCC),Metastasis to mediastinal lymph node (HCC) Start Infusion 12/13/2023 10:03 AM EDT 200 mg 226 mL/hr PEMEtrexed Disodium (Alimta) 800 mg in NSS 100 mL infusion 800 mg (rounded from 840 mg = 500 mg/m2 1.68 m2 Treatment Plan BSA from Recorded weight), IV Piggyback, ONCE, 1 dose, On Sat12/13/23 at 1045, Administer over 10 MinutesIndications:Encounte r for antineoplastic chemotherapy,Malignant neoplasm of upper lobe of right lung (HCC),Metastasis to mediastinal lymph node (HCC) Start Infusion 12/13/2023 10:48 AM EDT 800 mg 630 mL/hr documented in this encounter Care Teams Compliance Director Relationship Specialty Start Date End Date Renetta Naidu DO [address] [place] [address] [place] [phone] PCP - General Internal Medicine 11/12/23 documented as of this encounter
--- OUTSIDE RECORDS SUMMARY | 2024-02-08 04:27 | External Medical Summary | Summary of Care ---
Author Name Unknown Organization [facility] Address [address] [place] [address] Phone [phone] Care Team Providers Care Windows Phone Developer Name Role Phone Renetta Naidu DO Primary Care Provider Reason for Visit * Reason Comments Chemotherapy Keytruda/Alimta/Carb o D1C1 * Episode Based Medications (Routine) - Authorized Specialty Diagnoses / Procedures Referred By Contac t Referred To Contact Diagnoses Encounter for antineoplastic chemotherapy Malignant neoplasm of upper lobe of right lung (HCC) Metastasis to mediastinal lymph node (HCC) Procedures [place] CARBOPLATIN INJECTION MT INJ. PEMETREXED NOS 10MG [place] FOSAPREPITANT INJECTION MT INJ PEMBROLIZUMAB Yogi Muñoz MD [address] [place] [address] [place] [address] Phone: tel: fax: Hematology[place]cology [place] [address] Phone: tel: fax: Referral ID Status Reason Start Date Expiration Date V isits Requested Visits Authorized [id number] Authorized 12/06/2023 02/17/2099 [id number] Encounter Details Date Type Department Care Team (Latest Contact Info) Description 12/13/2023 8:45 AM EDT Hem/Onc Treatment Hematology/On[place]olog y Treatment, [address] [phone] Amparo, Chair 2 Hem Onc [address] [place], [place] [address] Encounter for antineoplastic chemotherapy*; Malignant neoplasm of [...] Description 01/02/2024 9:00 AM EST Laboratory Laboratory [address] [place] [phone] [place] [address] 01/03/2024 9:00 AM EST Office Visit Hematology/Oncology [address] [place] [phone] Consuelo Jarvis CRNP [address] [place] [address] [place] [address] 01/03/2024 9:30 AM EST Hem/Onc Treatment Hematology/Oncology Treatment, [address] [place] [phone] Amparo, Chair 5 Hem Onc [address] [place] [address] 07/21/2024 8:30 AM EDT Office Visit Family Medicine [address] [place] [phone] Renetta Naidu, [address] [place] [address] Health Maintenance Due [...] this encounter Medical Devices Implanted Type Area Vocational Rehabilitation Supervisor Device Identifier Shelf Expiration Date Model / Serial / Lot Device Perm Cntrl [id number] - [id number] Implanted:Qty: 2 on 09/30/2014 by Julio Ramírez MD at OR [facility] N/A: Fallopian Tube [employer] 03/02/2016 [id number] / / [id number] Description:Bilateral tubal documented as of this encounter [...] mL/hr documented in this encounter Care Teams Windows Phone Developer Relationship Specialty Start Date End Date Renetta Naidu DO [address] [place] [address] [place] [phone] PCP - General Internal Medicine 11/12/23 documented as of this encounter
--- OUTSIDE RECORDS SUMMARY | 2024-02-08 04:27 | External Medical Summary | Summary of Care ---
Author Name Unknown Organization [facility] Address [address] [place] [address] Phone [phone] Care Team Providers Care Sales Department Supervisor Name Role Phone Renetta Naidu DO Primary Care Provider [phone] Reason for Visit * Reason Comments Chemotherapy C2/D1 - Keytruda, [place], Carboplatin * Episode Based Medications (Routine) - Authorized Specialty Diagnoses / Procedures Referred By Contac t Referred To Contact Diagnoses Encounter for antineoplastic chemotherapy Malignant neoplasm of upper lobe of right lung (HCC) Metastasis to mediastinal lymph node (HCC) Procedures [place] CARBOPLATIN INJECTION [place] INJ. PEMETREXED NOS 10MG [place] FOSAPREPITANT INJECTION [place] INJ PEMBROLIZUMAB Yogi Muñoz MD [address] [place] [address] [place] [address] Phone: tel: fax: Hematology/Oncology Treatment, [address] [address] Phone: tel: fax: Referral ID Status Reason Start Date Expiration Date V isits Requested Visits Authorized [id number] Authorized 12/06/2023 02/17/2099 [id number] Encounter Details Date Type Department Care Team (Latest Contact Info) Description 01/03/2024 9:30 AM EST Hem/Onc Treatment Hematology/Oncolog y Treatment, [address] [address] Amparo, Chair 5 Hem Onc Scenery [address] [place], [place] [address] Encounter for antineoplastic chemotherapy*; Malignant neoplasm of upper lobe of right lung (HCC); Metastasis to mediastinal lymph node (HCC) Allergies No known active allergiesdocumented as of this encounter (statuses as of 01/03/2024) Medications lamoTRIgine 100 MG Oral Tablet (LaMICtal) [...] as of this encounter (statuses as of 01/03/2024) Active Problems Problem Noted Date Diagnosed Date [...] as of this encounter (statuses as of 01/03/2024) Resolved Problems Problem Noted Date Diagnosed Date Resolved Date Restrictive lung disease 06/15/2022 Depression 05/02/2012 06/15/2022 Generalized anxiety disorder 01/14/2012 06/15/2022 documented as of this encounter (statuses as of 01/03/2024) Immunizations Name Administration Dates Next Due Pneumococcal [...] Description 01/10/2024 9:00 AM EST Laboratory Laboratory [address] [place] [phone] [place] [address] 01/23/2024 9:00 AM EST Laboratory Laboratory [address] [place] [phone] [place] [address] 01/24/2024 9:00 AM EST Office Visit Hematology/Oncology [address] [place] [phone] Consuelo Jarvis CRNP [address] [place], [place] [address] [address] 01/24/2024 9:30 AM EST Hem/Onc Treatment Hematology/Oncology Treatment, [address] [address] Amparo, Chair 8 Hem On[address] [place] [address] 07/21/2024 8:30 AM EDT Office Visit Family Medicine [address] [place] [phone] [place] [address] Health Maintenance Due Date Last Done Comments [...] this encounter Medical Devices Implanted Type Area Combat Engineer Device Identifier Shelf Expiration Date Model / Serial / Lot Device Perm Cntrl [id number] - [id number] Implanted:Qty: 2 on 09/30/2014 by Julio Ramírez MD at OR [facility] N/A: Fallopian Tube [employer] 03/02/2016 [id number] / / [id number] Description:Bilateral tubal documented as of this encounter [...] ONCE PRN Other, Hypersensitivity Reaction, Starting on Sat01/03/24 at 0956, Until 01/04/24 at 0955, For 24 hoursIndications:Encounter for antineoplastic chemotherapy,Malignant neoplasm of upper lobe of right lung (HCC),Metastasis to mediastinal lymph node (HCC) EPINEPHrine 1 MG/ML inj 0.3 mg 0.3 mg, Intramuscular, ONCE PRN Other, Hypersensitivity Reaction or Anaphylaxis, Starting on Sat01/03/24 at 0956, Until 01/04/24 at 0955, For 24 hoursIndications:Encounter for antineoplastic chemotherapy,Malignant neoplasm of upper lobe of right lung (HCC),Metastasis to mediastinal lymph node (HCC) hEParin 100 UNIT/ML Lock Flush inj 500 Units 500 Units (5 mL), IV Lock, PRN Other, IV Flush, Starting on Sat01/03/24 at 0956, Until 01/04/24 at 0955, For 24 hours, Do not flush if lock, PICC, or central line not in place; IV infusing or unable to flush.Indications:Encounter for antineoplastic chemotherapy,Malignant neoplasm of upper lobe of right lung (HCC),Metastasis to mediastinal lymph node (HCC) Hydrocortisone Sod Suc (PF) (Solu-Cortef) inj 100 mg 100 mg, IV Push, ONCE PRN Other, Hypersensitivity Reaction, Starting on Sat01/03/24 at 0956, Until 01/04/24 at 0955, For 24 hoursIndications:Encounter for antineoplastic chemotherapy,Malignant neoplasm of upper lobe of right lung (HCC),Metastasis to mediastinal lymph node (HCC) LORAzepam (Ativan) tab 0.5 mg 0.5 mg, Oral, ONCE PRN Anxiety, Nausea, Starting on Sat01/03/24 at 1100, Until DiscontinuedIndications:Encount er for antineoplastic chemotherapy,Malignant neoplasm of upper lobe of right lung (HCC),Metastasis to mediastinal lymph node (HCC) meperidine (Demerol) 25 MG/ML inj 25 mg 25 mg, Intramuscular, ONCE PRN Shivering, Chills/Rigors from acute infusion reaction, Starting on Sat01/03/24 at 0956, Until 01/04/24 at 0955, For 24 hoursIndications:Encounter for antineoplastic chemotherapy,Malignant neoplasm of upper lobe of right lung (HCC),Metastasis to mediastinal lymph node (HCC) NSS infusion Intravenous, at 50 mL/hr, PRN, Starting on Sat01/03/24 at 1100, Until Discontinued, Maintenance lineIndications:Encounter for antineoplastic chemotherapy,Malignant neoplasm of upper lobe of right lung (HCC),Metastasis to mediastinal lymph node (HCC) Start Infusion 01/03/2024 10:00 AM EST 50 mL/hr oxygen GAS Inhalation, OXYGEN, First dose on Sat01/03/24 at 1030, Until Discontinued, Device/Managed by: Low Flow Device, [...] Push, PRN Other, IV Flush, Starting on Sat01/03/24 at 0956, Until 01/04/24 at 0955, For 24 hours, Do not flush if [...] 10:02 AM EST 150 mg 538.4 mL/hr Pembrolizumab [...] mL/hr documented in this encounter Care Teams Sales Department Supervisor Relationship Specialty Start Date End Date Renetta Naidu DO [address] [place] [address] [place] [phone] PCP - General Internal Medicine 11/12/23 documented as of this encounter
--- OUTSIDE RECORDS SUMMARY | 2024-02-08 04:27 | External Medical Summary | Summary of Care ---
Author Name Unknown Organization [facility] Address [address] [place] [address] Phone [phone] Care Team Providers Care Housing Quality Standard Inspector Name Role Phone Renetta Naidu DO Primary Care Provider Reason for Visit * Reason Comments Chemotherapy Keytruda/Alimta/Carb o D1C1 * Episode Based Medications (Routine) - Authorized Specialty Diagnoses / Procedures Referred By Contac t Referred To Contact Diagnoses Encounter for antineoplastic chemotherapy Malignant neoplasm of upper lobe of right lung (HCC) Metastasis to mediastinal lymph node (HCC) Procedures [place] CARBOPLATIN INJECTION [place] INJ. PEMETREXED NOS 10MG [place] FOSAPREPITANT INJECTION [place] INJ PEMBROLIZUMAB Yogi Muñoz MD [address] [place] [address] [place] [id number] Phone: tel: fax: Hematology/Oncology Treatment, [address] [address] Phone: tel: fax: Referral ID Status Reason Start Date Expiration Date V isits Requested Visits Authorized [id number] Authorized 12/06/2023 02/17/2099 [id number] Encounter Details Date Type Department Care Team (Latest Contact Info) Description 12/13/2023 8:45 AM EDT Hem/Onc Treatment Hematology/Oncolog y Treatment, [address] [address] Amparo, Chair 2 Hem Onc Scenery [address] [place], [place] [address] Encounter for antineoplastic chemotherapy*; Malignant neoplasm of [...] Description 01/02/2024 9:00 AM EST Laboratory Laboratory [address] [place] [phone] [place] [address] 01/03/2024 9:00 AM EST Office Visit Hematology/Oncology [address] [place] [phone] Consuelo Jarvis CRNP [address] [place] [address] [place] [address] 01/03/2024 9:30 AM EST Hem/Onc Treatment Hematology/Oncology Treatment, [address] [place] [phone] Amparo, Chair [address] On[address] [place] [address] 07/21/2024 8:30 AM EDT Office Visit Family Medicine [address] [place] [phone] Renetta Naidu, [address] [place] [address] Health Maintenance Due [...] this encounter Medical Devices Implanted Type Area Academic Affairs Assistant Device Identifier Shelf Expiration Date Model / Serial / Lot Device Perm Cntrl [id number] - [id number] Implanted:Qty: 2 on 09/30/2014 by Julio Ramírez MD at OR [facility] N/A: Fallopian Tube [employer] 03/02/2016 [id number] / / [id number] Description:Bilateral tubal documented as of this encounter [...] mL/hr documented in this encounter Care Teams Housing Quality Standard Inspector Relationship Specialty Start Date End Date Renetta Naidu DO [address] [place] [address] [place] [phone] PCP - General Internal Medicine 11/12/23 documented as of this encounter
--- OUTSIDE RECORDS SUMMARY | 2024-02-08 04:27 | External Medical Summary | Summary of Care ---
Author Name Unknown Organization [facility] Address [address] [place] [address] Phone [phone] Care Team Providers Care Vault Mechanic Name Role Phone Renetta Naidu DO Primary Care Provider [phone] Reason for Visit * Reason Comments Chemotherapy [...] INJECTION [place] INJ PEMBROLIZUMAB Yogi Muñoz MD [address] [place] [address] [place] [address] Phone: tel: fax: Hematology/Oncology Treatment, [address] [address] Phone: tel: fax: Referral ID Status Reason Start Date Expiration Date V isits Requested Visits Authorized [id number] Authorized 12/06/2023 02/17/[phone] Encounter Details Date Type Department Care Team (Latest Contact Info) Description 12/13/2023 8:45 AM EDT Hem/Onc Treatment Hematology/Oncolog y Treatment, [address] [address] Amparo, Chair 2 Hem Onc Scenery [address] [place], [place] [address] Encounter for antineoplastic chemotherapy*; Malignant neoplasm of [...] Description 01/02/2024 9:00 AM EST Laboratory Laboratory [address] [place] [phone] [place] [address] 01/03/2024 9:00 AM EST Office Visit Hematology/Oncology [address] [place] [phone] Consuelo Jarvis CRNP [address] [place] [address] [place] [address] 01/03/2024 9:30 AM EST Hem/Onc Treatment Hematology/Oncology Treatment, [address] [place] [phone] Amparo, Chair 5 Hem On[address] [place] [address] 07/21/2024 8:30 AM EDT Office Visit Family Medicine [address] [place] [phone] Renetta Naidu, [address] [place] [address] Health Maintenance Due [...] this encounter Medical Devices Implanted Type Area Supervisor Asbestos Textile Device Identifier Shelf Expiration Date Model / Serial / Lot Device Perm Cntrl [id number] - [id number] Implanted:Qty: 2 on 09/30/2014 by Julio Ramírez MD at OR [facility] N/A: Fallopian Tube [employer] 03/02/2016 [id number] / / [id number] Description:Bilateral tubal documented as of this encounter [...] mL/hr documented in this encounter Care Teams Vault Mechanic Relationship Specialty Start Date End Date Renetta Naidu DO [address] [place] [address] [place] [phone] PCP - General Internal Medicine 11/12/23 documented as of this encounter
--- OUTSIDE RECORDS SUMMARY | 2024-02-08 04:27 | External Medical Summary | Summary of Care ---
Author Name Unknown Organization [facility] Address [address] [place] [facility] [place] [address] Phone [phone] Care Team Providers Care Ski Binding Fitter And Repairer Name Role Phone NaiduRenetta philip Primary Care Provider Reason for Visit * Reason Onset Date Comments Advice 01/06/2024 Dr. Muñoz Encounter Details Date Type Department Care Team (Late st Contact Info) Description 01/06/2024 Telephone Hematology/Oncology Rom[facility] Christensen [place] [address] [place] [phone] Yogi Muñoz MD [address] [place] [address] Advice (Dr. Muñoz ) Allergies No [...] encounter Miscellaneous Notes * Telephone Encounter - Renetta Niño OSA - 01/06/2024 9:59 AM EST Sarah called regarding her Oxycodone she was prescribed by Consuelo Jarvis on Saturday. She advised [facility] told her this medication could interfere with her Lybalvi and that it could give her chest pain, sweats, and muscle pain and she could have withdraw. Please contact pt at [phone]. Thank you. documented in this encounter Plan of Treatment Upcoming Encounters Date Type Department Care Team (Late st Contact Info) Description 01/10/2024 9:00 AM EST Laboratory Laboratory [address] [place] [phone] [address] [place] [address] 01/23/2024 9:00 AM EST Laboratory Laboratory [address] [place] [phone] [address] [place] [address] 01/24/2024 9:00 AM EST Office Visit Hematology/Oncology [facility] [address] [facility] [place] [phone] Consuelo Jarvis CRNP [address] [facility] [place] [address] 01/24/2024 9:30 AM EST Hem/Onc Treatment Hematology/Oncology Treatment, [place] [address] [facility] [address] [place] [phone] Amparo, Chair 8 Hem Onc [facility] [address] [facility] [place] [address] 07/21/2024 8:30 AM EDT Office Visit Family Medicine [address] [place] [phone] [place] [address] Health Maintenance Due Date Last Done Comments [...] shot) (#1) 2023 12/14/2011 Cologuard 07/05/2025 07/05/2022, 2023, 06/25/2022 Colorectal Cancer Screening 07/05/2025 Diabetes Screening [...] this encounter Medical Devices Implanted Type Area Finishing Frame Runner Device Identifier Shelf Expiration Date Model / Serial / Lot Device Perm Cntrl [id number] - [id number] Implanted:Qty: 2 on 09/30/2014 by Julio Ramírez MD at OR [facility] N/A: Fallopian Tube [employer] 03/02/2016 [id number] / / [id number] Description:Bilateral tubal documented as of this encounter Care Teams Ski Binding Fitter And Repairer Relationship Specialty Start Date End Date Renetta Naidu DO [address] [place] [address] [place] [phone] PCP - General Internal Medicine 11/12/23 documented as of this encounter
--- OUTSIDE RECORDS SUMMARY | 2024-02-08 04:27 | External Medical Summary | Summary of Care ---
Author Name Unknown Organization [facility] Address [address] [place] [address] Phone [phone] Care Team Providers Care Cloth Mercerizing Supervisor Name Role Phone Renetta Naidu DO Primary Care Provider Reason for Visit * Reason Comments Medication Administration B12 1000 mcg * Episode Based Medications (Routine) - Authorized Specialty Diagnoses / Procedures Referred By Contac t Referred To Contact Diagnoses Encounter for antineoplastic chemotherapy Malignant neoplasm of upper lobe of right lung (HCC) Metastasis to mediastinal lymph node (HCC) Procedures [place] CARBOPLATIN INJECTION [place] INJ. PEMETREXED NOS 10MG [place] FOSAPREPITANT INJECTION [place] INJ PEMBROLIZUMAB Yogi Muñoz MD [address] [place] [address] Phone: tel: fax: Hematology/Oncology Treatment, [address] [address] Phone: tel: fax: Referral ID Status Reason Start Date Expiration Date V isits Requested Visits Authorized [id number] Authorized 12/06/2023 02/17/2099 999 [id number] Encounter Details Date Type Department Care Team (Latest Contact Info) Description 12/06/2023 1:15 PM EDT Immunization/ Injection Hematology/Oncology Treatment, [address] [phone] Amparo, Chair 11 Hem Onc Scenery [address] [place] [address] Encounter for antineoplastic chemotherapy*; Malignant neoplasm of upper lobe of right lung (HCC); Metastasis to mediastinal lymph node (HCC) Allergies No known active allergiesdocumented as of this encounter (statuses as of 12/31/2023) Medications lamoTRIgine 100 MG Oral Tablet (LaMICtal) TAKE 1 TABLET BY MOUTH 2 TIME(S) PER DAY 1 Active Lybalvi 20-10 MG Oral Tablet ONE TABLET BY MOUTH AT BEDTIME FOR MOOD 3 Active Trelegy Ellipta 200-62.5-25 MCG/ACT Aerosol Powder Breath Activated (Fluticasone-Ume clidinium-Vilant geronimo)Indications :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 30 Blister Dosing Unit 5 4 Active Albuterol Sulfate HFA 108 (90 Base) MCG/ACT Inhalation Aerosol SolutionIndicati ons:Tobacco use,SOB (shortness of breath) Inhale 2 Puffs by mouth every 4 hours as needed for Wheezing. 18 g 1 4 Active Pantoprazole Sodium 40 MG Oral Tablet Delayed Release (Protonix)Indica tions:Dysphagia, unspecified type Take 1 Tablet by mouth in the morning. 30 minutes before the first meal of the day. Do not crush, split or chew the tablet. 30 Tablet 5 4 Active predniSONE 20 MG Oral Tablet (Deltasone)Indic ations:Acute pain of right shoulder 2 tablets daily for 5 days then 1 tablet daily 15 Tablet 4 Active Additional Information Patient not taking.Reported on 11/26/2023 Rosuvastatin Calcium 10 MG Oral Tablet (Crestor)Indicat ions:Dyslipidemi a, goal LDL below 160 TAKE 1 TABLET BY MOUTH EVERY DAY IN THE MORNING 90 Tablet 4 Active Hospital, Clinic, or Other [...] as of this encounter (statuses as of 12/31/2023) Active Problems Problem Noted Date Diagnosed Date [...] as of this encounter (statuses as of 12/31/2023) Resolved Problems Problem Noted Date Diagnosed Date Resolved Date Restrictive lung disease 06/15/2022 Depression 05/02/2012 06/15/2022 Generalized anxiety disorder 01/14/2012 06/15/2022 documented as of this encounter (statuses as of 12/31/2023) Immunizations Name Administration Dates Next Due Pneumococcal [...] as of this encounter Nursing Notes * Krystal Carter CMA - 12/06/2023 1:28 PM EDT B12 mcg administered IM into the left deltoid per standing order. Patient tolerated injection. documented in this encounter Plan of Treatment Upcoming Encounters Date Type Department Care Team (Late st Contact Info) Description 01/02/2024 9:00 AM EST Laboratory Laboratory [address] [place] [phone] [address] [place] [address] 01/03/2024 9:00 AM EST [facility] [place] [facility] [place] [phone] Consuelo Jarvis CRNP [address] [place] [phone] 01/03/2024 9:30 AM EST Hem/Onc Treatment [facility]ology[facility], [place] [facility] [phone] Amparo, Chair 5 Hem Onc Scene [address] [facility] [place] [address] 07/21/2024 8:30 AM EDT Office Visit Family Medicine [address] [phone] [place] [address] Health Maintenance Due Date Last Done Comments [...] this encounter Medical Devices Implanted Type Area Submarine Element Coordinator Device Identifier Shelf Expiration Date Model / Serial / Lot Device Perm Cntrl [id number] - [id number] Implanted:Qty: 2 on 09/30/2014 by Julio Ramírez MD at OR [facility] N/A: Fallopian Tube [employer] 03/02/2016 [id number] / / [id number] Description:Bilateral tubal documented as of this encounter [...] MAR Action Action Date Dose Rate Site Vitamin B-12 (Cyanocobalamin) inj 1,000 mcg 1,000 mcg, Intramuscular, ONCE, On Sat12/06/23 at 1415, For 1 doseIndications:Encounter for antineoplastic chemotherapy,Malignant neoplasm of upper lobe of right lung (HCC),Metastasis to mediastinal lymph node (HCC) Given 12/06/2023 1:24 PM EDT 1,000 mcg Deltoid Left Upper documented in this encounter Care Teams Cloth Mercerizing Supervisor Relationship Specialty Start Date End Date Renetta Naidu DO [address] [place] [address] [place] [address] PCP - General Internal Medicine 11/12/23 documented as of this encounter
--- OUTSIDE RECORDS SUMMARY | 2024-02-08 04:27 | External Medical Summary ---
Author Name Unknown Address Unknown Organization K01[place] [facility] [place] [address] [facility] [place] [address] Laboratory Report Ordering Provider Test Date Status JARED MAGAÑA 01/02/2024 08:53:10 Final Observation Date Value Abnormality Reference (Units ) Status BUN 01/02/2024 08:53:10 6 6-20 (mg/dL) Final Creatinine 01/02/2024 08:53:10 0.7 0.5-1.0 (mg/dL) Final Glomerular filtration rate/1.73 sq M.predicted [Volume Rate/Area] in Serum, Plasma or Blood by Creatinine-based formula (CKD-EPI) 01/02/2024 08:53:10 >90 >=60 (mL/min) Final eGFR is calculated based on the CKD-EPI 2020 equation. Sodium 01/02/2024 08:53:10 140 135-146 (m mol/L) Final Potassium 01/02/2024 08:53:10 4.3 3.5-5.1 (m mol/L) Final Cl 01/02/2024 08:53:10 101 98-107 (mm ol/L) Final CO2 01/02/2024 08:53:10 23 22-32 (mmo l/L) Final Anion gap 01/02/2024 08:53:10 16 Above high normal 7- 15 (mmol/L) Final Glucose 01/02/2024 08:53:10 108 70-120 (mg /dL) Final Albumin 01/02/2024 08:53:10 3.3 Below low normal 3.8 -5.0 (g/dL) Final AST (Aspartate aminotransferase) 01/02/2024 08:53:10 49 Above high normal 10-35 (U/L) Final Alk Phos 01/02/2024 08:53:10 150 Above high normal 35 -130 (U/L) Final Bilirubin, Total 01/02/2024 08:53:10 0.2 <=1 .2 (mg/dL) Final Calcium 01/02/2024 08:53:10 9.2 8.4-10.2 ( mg/dL) Final Protein 01/02/2024 08:53:10 6.4 6.0-8.3 (g /dL) Final ALT (Alanine aminotransferase) 01/02/2024 08:53:10 59 Above high normal 10-35 (U/L) Final Performing Location [facility] [place] [address] [facility] [address]
--- OUTSIDE RECORDS SUMMARY | 2024-02-08 04:27 | External Medical Summary ---
Author Name Unknown Address Unknown Organization K01:[place] [place] [facility] [address] [facility] [address] [facility] [address] Laboratory Report Ordering Provider Test Date Status JARED MAGAÑA 01/02/2024 08:53:10 Final Observation Date Value Abnormality Reference (Units ) Status WBC, Total 01/02/2024 08:53:10 8.45 4.00-10.80 (K/uL) Final RBC 01/02/2024 08:53:10 4.11 3.85-5.15 (M/uL) Final Hemoglobin 01/02/2024 08:53:10 13.7 12.0-15.3 (g/dL) Final HCT 01/02/2024 08:53:10 43.2 36.0-45.2 (%) Final MCV 01/02/2024 08:53:10 105.1 81.5-97.5 (fL) Final MCH 01/02/2024 08:53:10 33.3 27.0-34.0 (pg) Final MCHC 01/02/2024 08:53:10 31.7 32.0-36.0 (g/dL) Final RDW 01/02/2024 08:53:10 14.3 11.5-15.5 (%) Final Platelets 01/02/2024 08:53:10 382 140-400 (K/uL) Final MPV 01/02/2024 08:53:10 10.0 6.6-11.1 (fL) Final Nucleated erythrocytes/100 leukocytes [Ratio] in Blood by Automated count 01/02/2024 08:53:10 0 <=0 (/100 WBCs) Final Performing Location [facility] [place] [address] [facility] [address]
--- OUTSIDE RECORDS SUMMARY | 2024-02-08 04:27 | External Medical Summary ---
Author Name Unknown Address Unknown Organization K01:[facility] [place] [address] [place] [address] Laboratory Report Ordering Provider Test Date Status JARED MAGAÑA 01/02/2024 08:53:10 Final Observation Date Value Abnormality Reference (Units ) Status TSH 01/02/2024 08:53:10 2.24 0.27-4.20 (uIU/mL) Final Performing Location LABORATORY [facility] - [address] [place] [address]
--- OUTSIDE RECORDS SUMMARY | 2024-02-08 04:27 | External Medical Summary | Summary of Care ---
Author Name Unknown Organization [facility] Address [address] [place] [address] Phone [phone] Care Team Providers Care Sales Strategy Manager Name Role Phone Renetta Naidu DO Primary Care Provider Reason for Visit * Reason Comments Outpatient Testing Encounter Details Date Type Department Care Team (Late st Contact Info) Description 01/02/2024 9:00 AM EST Laboratory Laboratory [address] [place] [phone] [place] [address] Malignant neoplasm of upper lobe of right lung (HCC); Metastasis to mediastinal lymph node (HCC); Bipolar disorder, unspecified (HCC) Allergies No known active allergiesdocumented as of this encounter (statuses as of 01/02/2024) Medications lamoTRIgine 100 MG Oral Tablet (LaMICtal) [...] as of this encounter (statuses as of 01/02/2024) Active Problems Problem Noted Date Diagnosed Date [...] as of this encounter (statuses as of 01/02/2024) Resolved Problems Problem Noted Date Diagnosed Date Resolved Date Restrictive lung disease 06/15/2022 Depression 05/02/2012 06/15/2022 Generalized anxiety disorder 01/14/2012 06/15/2022 documented as of this encounter (statuses as of 01/02/2024) Immunizations Name Administration Dates Next Due Pneumococcal [...] 01/03/2024 9:00 AM EST Office Visit Hematology/Oncology [facility] Amparo [address] [place] [phone] Consuelo Jarvis CRNP [address] [facility] [place] [id number] 01/03/2024 9:30 AM EST Hem/Onc Treatment Hematology/Oncology Treatment, [place] [address] [facility] [address] [place] [phone] Amparo, Chair 5 Hem Onc [address] [place] [address] 07/21/2024 8:30 AM EDT Office Visit Family Medicine [address] [place] [phone] [address] [place] [address] Pending Results Name Type Priority Associated Diagnoses Date /Time CBC WITH WBC DIFFERENTIAL Lab STAT Malignant neoplasm of upper lobe of right lung (HCC) Metastasis to mediastinal lymph node (HCC) 01/02/2024 8:53 AM EST COMPREHENSIVE METABOLIC PANEL Lab STAT Malignant neoplasm of upper lobe of right lung (HCC) Metastasis to mediastinal lymph node (HCC) 01/02/2024 8:53 AM EST TSH WITH FREE T4 IF INDICATED Lab STAT Malignant neoplasm of upper lobe of right lung (HCC) Metastasis to mediastinal lymph node (HCC) Bipolar disorder, unspecified (HCC) 01/02/2024 8:53 AM EST CBC Lab STAT Malignant neoplasm of upper lobe of right lung (HCC) Metastasis to mediastinal lymph node (HCC) 01/02/2024 8:53 AM EST DIFFERENTIAL, AUTOMATED Lab STAT Malignant neoplasm of upper lobe of right lung (HCC) Metastasis to mediastinal lymph node (HCC) 01/02/2024 8:53 AM EST Health Maintenance Due Date Last [...] this encounter Medical Devices Implanted Type Area Technical Designer Device Identifier Shelf Expiration Date Model / Serial / Lot Device Perm Cntrl [id number] - [id number] Implanted:Qty: 2 on 09/30/2014 by Julio Ramírez MD at [facility] N/A: Fallopian Tube [employer] 03/02/2016 [id number] / / [id number] Description:Bilateral tubal documented as of this encounter Visit Diagnoses Diagnosis Malignant neoplasm of upper lobe of right lung (HCC) Malignant neoplasm of upper lobe, bronchus or lung 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
--- OUTSIDE RECORDS SUMMARY | 2024-02-08 04:27 | External Medical Summary | Summary of Care ---
Author Name Unknown Organization [facility] Address [address] [place] [address] Phone [phone] Care Team Providers Care Gas Meter Installer Helper Name Role Phone Renetta Naidu DO Primary Care Provider Reason for Visit * Reason Comments Chemotherapy Keytruda/Alimta/Carb o D1C1 * Episode Based Medications (Routine) - Authorized Specialty Diagnoses / Procedures Referred By Contac t Referred To Contact Diagnoses Encounter for antineoplastic chemotherapy Malignant neoplasm of upper lobe of right lung (HCC) Metastasis to mediastinal lymph node (HCC) Procedures [place] CARBOPLATIN INJECTION [place] INJ. PEMETREXED NOS 10MG [place] FOSAPREPITANT INJECTION [place] INJ PEMBROLIZUMAB Yogi Muñoz MD [address] [place] [address] [place] [address] Phone: tel: fax: Hematology/Oncology Treatment, [address] [address] Phone: tel: fax: Referral ID Status Reason Start Date Expiration Date V isits Requested Visits Authorized [id number] Authorized 12/06/2023 02/17/2099 [id number] Encounter Details Date Type Department Care Team (Latest Contact Info) Description 12/13/2023 8:45 AM EDT Hem/Onc Treatment Hematology/Oncolog [place] Treatment, [address] [address] Amparo, Chair 2 Hem Onc Scenery [address] [place], [place] [address] Encounter for antineoplastic chemotherapy*; Malignant neoplasm of [...] Description 01/02/2024 9:00 AM EST Laboratory Laboratory [address] [place] [phone] [place] [address] 01/03/2024 9:00 AM EST Office Visit Hematology/Oncology [address] [place] [phone] Consuelo Jarvis CRNP [address] [place] [address] [place] [address] 01/03/2024 9:30 AM EST Hem/Onc Treatment Hematology/Oncology Treatment, [address] [place] [phone] Amparo, Chair 5 Hem Onc [address] [place] [address] 07/21/2024 8:30 AM EDT Office Visit Family Medicine [address] [place] [phone] Renetta Naidu, [address] [place] [address] Health Maintenance Due [...] this encounter Medical Devices Implanted Type Area Special Education Educational Assistant Device Identifier Shelf Expiration Date Model / Serial / Lot Device Perm Cntrl [id number] - [id number] Implanted:Qty: 2 on 09/30/2014 by Julio Ramírez MD at OR [facility] N/A: Fallopian Tube [employer] 03/02/2016 [id number] / / [id number] Description:Bilateral tubal documented as of this encounter [...] mL/hr documented in this encounter Care Teams Gas Meter Installer Helper Relationship Specialty Start Date End Date Renetta Naidu DO [address] [place] [address] [place] [phone] PCP - General Internal Medicine 11/12/23 documented as of this encounter
--- OUTSIDE RECORDS SUMMARY | 2024-02-08 04:27 | External Medical Summary | Summary of Care ---
Author Name Unknown Organization [facility] Address [address] [facility] [place] [address] Phone [phone] Care Team Providers Care Marketer Name Role Phone NaiduRenetta philip Primary Care Provider Reason for Visit * Reason Onset Date Comments Advice 01/06/2024 Dr. Muñoz Encounter Details Date Type Department Care Team (Late st Contact Info) Description 01/06/2024 Telephone Hematology/Oncology Rom[facility] Christensen [place] [address] [place] [phone] Yogi Muñoz MD [address] [place] [address] Advice (Dr. Muñoz ) Allergies No [...] by Consuelo Jarvis on Saturday. She advised [facility] told her this medication could interfere with her Lybalvi and that it could give her chest pain, sweats, and muscle pain and she could have withdraw. Please contact pt at [phone]. Thank you. documented in this encounter Plan of Treatment Upcoming Encounters Date Type Department Care Team (Late st Contact Info) Description 01/10/2024 9:00 AM EST Laboratory Laboratory [address] [place] [phone] [address] [place] [address] 01/23/2024 9:00 AM EST Laboratory Laboratory [address] [place] [phone] [address] [place] [address] 01/24/2024 9:00 AM EST Office Visit Hematology/Oncology [facility] 200 [facility] [place] [phone] Consuelo Jarvis CRNP 400 [facility] [place] [address] 01/24/2024 9:30 AM EST Hem/Onc Treatment Hematology/Oncology Treatment, [place] [address] [facility] [address] [place] [phone] Amparo, Chair 8 Hem Onc [facility] 200 [facility] [place] [address] 07/21/2024 8:30 AM EDT Office Visit Family Medicine [address] [place] [phone] [address] [place] [address] Health Maintenance Due Date Last Done Comments [...] this encounter Medical Devices Implanted Type Area Stock Selector Device Identifier Shelf Expiration Date Model / Serial / Lot Device Perm Cntrl [id number] - [id number] Implanted:Qty: 2 on 09/30/2014 by Julio Ramírez MD at OR [facility] N/A: Fallopian Tube [employer] 03/02/2016 [id number] / / [id number] Description:Bilateral tubal documented as of this encounter Care Teams Marketer Relationship Specialty Start Date End Date Renetta Naidu DO [address] [place] [address] [place] [phone] PCP - General Internal Medicine 11/12/23 documented as of this encounter
--- OUTSIDE RECORDS SUMMARY | 2024-02-08 04:27 | External Medical Summary | Summary of Care ---
Author Name Unknown Organization [facility] Address [address] [place] [facility] [place] [place] [address] Phone [phone] Care Team Providers Care Student Accounts Manager Name Role Phone NaiduRenetta philip Primary Care Provider Reason for Visit * Reason Onset Date Comments Advice 01/06/2024 Dr. Muñoz Encounter Details Date Type Department Care Team (Late st Contact Info) Description 01/06/2024 Telephone Hematology/Oncology Román Christensen [place] [address] [place] [phone] Yogi Muñoz MD [address] [place] [address] Advice (Dr. Muñoz ) Allergies No [...] encounter Miscellaneous Notes * Telephone Encounter - Vivian Booker RN - 01/06/2024 1:22 PM EST Images from the original note were not included. Consuelo: please advise. Thanks! * Telephone Encounter - Renetta Niño OSA - 01/06/2024 9:59 AM EST Sarah called regarding her Oxycodone she was prescribed by Consuelo Jarvis on Saturday. She advised [facility] told her this medication could interfere with her Lybalvi and that it could give her chest pain, sweats, and muscle pain and she could have withdraw. Please contact pt at [phone]. Thank you. documented in this encounter Plan of Treatment Upcoming Encounters Date Type Department Care Team (Late st Contact Info) Description 01/10/2024 9:00 AM EST Laboratory Laboratory [address] [place] [phone] [place] [address] 01/23/2024 9:00 AM EST Laboratory Laboratory [address] [place] [phone] [place] [address] 01/24/2024 9:00 AM EST Office Visit Hematology/Oncology [facility] 200 [facility] [place] [phone] Consuelo Jarvis CRNP 400 [facility] [place] [address] 01/24/2024 9:30 AM EST Hem/Onc Treatment Hematology/Oncology Treatment, [place] [facility] [phone] Amparo, Chair 8 Hem Onc [address] [place] [address] 07/21/2024 8:30 AM EDT Office Visit Family Medicine [address] [place] [phone] [address] [place] [address] Health Maintenance Due Date Last Done Comments [...] this encounter Medical Devices Implanted Type Area Scientific Informatics Analyst Device Identifier Shelf Expiration Date Model / Serial / Lot Device Perm Cntrl [id number] - [id number] Implanted:Qty: 2 on 09/30/2014 by Julio Ramírez MD at OR [facility] N/A: Fallopian Tube [employer] 03/02/2016 [id number] / / [id number] Description:Bilateral tubal documented as of this encounter Care Teams Student Accounts Manager Relationship Specialty Start Date End Date Renetta Naidu DO [address] [place] [address] [place] [phone] PCP - General Internal Medicine 11/12/23 documented as of this encounter
--- OUTSIDE RECORDS SUMMARY | 2024-02-08 04:27 | External Medical Summary | Summary of Care ---
Author Name Unknown Organization [facility] Address [address] [place] [address] Phone [phone] Care Team Providers Care Dispersion Mixer Name Role Phone Renetta Naidu DO Primary Care Provider [phone] Reason for Visit * Reason Comments Chemotherapy Keytruda/Alimta/Carb o D1C1 * Episode Based Medications (Routine) - Authorized Specialty Diagnoses / Procedures Referred By Contac t Referred To Contact Diagnoses Encounter for antineoplastic chemotherapy Malignant neoplasm of upper lobe of right lung (HCC) Metastasis to mediastinal lymph node (HCC) Procedures [place] CARBOPLATIN INJECTION [place] INJ. PEMETREXED NOS 10MG [place] FOSAPREPITANT INJECTION [place] INJ PEMBROLIZUMAB Yogi Muñoz MD [address] [place] [address] [place] [address] Phone: tel: fax: Hematology/Oncology Treatment, [address] [address] Phone: tel: fax: Referral ID Status Reason Start Date Expiration Date V isits Requested Visits Authorized [id number] Authorized 12/06/2023 02/17/2099 [id number] Encounter Details Date Type Department Care Team (Latest Contact Info) Description 12/13/2023 8:45 AM EDT Hem/Onc Treatment Hematology/Oncolog y Treatment, [address] [phone] Amparo, Chair 2 Hem Onc Scenery [address] [place], [place] [address] Encounter for antineoplastic chemotherapy*; Malignant neoplasm of [...] Description 01/02/2024 9:00 AM EST Laboratory Laboratory [address] [place] [phone] [place] [address] 01/03/2024 9:00 AM EST Office Visit Hematology/Oncology [address] [place] [phone] Consuelo Jarvis CRNP [address] [place] [address] [place] [address] 01/03/2024 9:30 AM EST Hem/Onc Treatment Hematology/Oncology Treatment, [address] [place] [phone] Amparo, Chair 5 Hem On[address] [place] [address] 07/21/2024 8:30 AM EDT Office Visit Family Medicine [address] [place] [phone] Renetta Naidu, [address] [place] [address] Health Maintenance Due [...] this encounter Medical Devices Implanted Type Area Asbestos Siding Installer Device Identifier Shelf Expiration Date Model / Serial / Lot Device Perm Cntrl [id number] - [id number] Implanted:Qty: 2 on 09/30/2014 by Julio Ramírez MD at OR [facility] N/A: Fallopian Tube [employer] 03/02/2016 [id number] / / [id number] Description:Bilateral tubal documented as of this encounter [...] mL/hr documented in this encounter Care Teams Dispersion Mixer Relationship Specialty Start Date End Date Renetta Naidu DO [address] [place] [address] [place] [phone] PCP - General Internal Medicine 11/12/23 documented as of this encounter
--- OUTSIDE RECORDS SUMMARY | 2024-02-08 04:28 | External Medical Summary | Summary of Care ---
Author Name Unknown Organization [facility] Address [address] [place] [address] Phone [phone] Care Team Providers Care Rn Bsn Name Role Phone NaiduRenetta philip Primary Care Provider Reason for Visit * Reason Onset Date Comments Precert Future 12/06/2023 henrry Weeks carbo Encounter Details Date Type Department Care Team (Late st Contact Info) Description 12/06/2023 Telephone Hematology/Oncology Treatment, [place] 200 [place] [address] Yogi Muñoz MD 200 [place] [address] Precert Future (Keytruda alimta, carbo) Allergies No known active allergiesdocumented as of this encounter (statuses as of 12/11/2023) Medications Medication Sig Dispensed Refills Start Date End Date Status lamoTRIgine 100 MG Oral Tablet (LaMICtal) TAKE 1 TABLET BY MOUTH 2 TIME(S) PER DAY 05/04/2020 Active Lybalvi 20-10 MG Oral Tablet ONE TABLET BY MOUTH AT BEDTIME FOR MOOD 04/22/2022 Active Trelegy Ellipta 200-62.5-25 MCG/ACT Aerosol Powder Breath Activated (Fluticasone-Umecl idinium-Vilanterol )Indications: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 30 Blister Dosing Unit 5 09/25/2023 Active Albuterol Sulfate HFA 108 (90 Base) MCG/ACT Inhalation Aerosol SolutionIndication s:Tobacco use,SOB (shortness of breath) Inhale 2 Puffs by mouth every 4 hours as needed for Wheezing. 18 g 1 10/30/2023 Active Pantoprazole Sodium 40 MG Oral Tablet Delayed Release (Protonix)Indicati ons:Dysphagia, unspecified type Take 1 Tablet by mouth in the morning. 30 minutes before the first meal of the day. Do not crush, split or chew the tablet. 30 Tablet 5 11/12/2023 Active predniSONE 20 MG Oral Tablet (Deltasone)Indicat ions:Acute pain of right shoulder 2 tablets daily for 5 days then 1 tablet daily 15 Tablet 11/12/2023 Active Additional Information Patient not taking.Reported on 11/26/2023 Rosuvastatin Calcium 10 MG Oral Tablet (Crestor)Indicatio ns:Dyslipidemia, goal LDL below 160 TAKE 1 TABLET BY MOUTH EVERY DAY IN THE MORNING 90 Tablet 11/14/2023 Active Hospital, Clinic, or Other Facility Administered [...] as of this encounter (statuses as of 12/11/2023) Active Problems Problem Noted Date Diagnosed Date Malignant neoplasm of upper lobe of right lung 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 Encounter for antineoplastic chemotherapy 2023 Mass of right lung 11/28/2023 Bipolar 1 disorder 06/15/2022 Overview: Follows with psychiatry - at [facility] Hyperlipidemia with target LDL less than 100 04/ 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 Overview: PFTs reflect more of a restrictive pattern Tobacco use disorder 06/15/2022 documented as of this encounter (statuses as of 12/11/2023) Resolved Problems Problem Noted Date Diagnosed Date Resolved Date Restrictive lung disease 06/15/2022 Depression 05/02/2012 06/15/2022 Generalized anxiety disorder 01/14/2012 06/15/2022 documented as of this encounter (statuses as of 12/11/2023) Immunizations Name Administration Dates Next Due Pneumococcal [...] years and over) Not on file 08/06/2023 Sex and Gender Information Value Date Recorded Sex Assigned at Not on file Gender Identity Not on file Sexual Orientation Not on file Job Start Date Occupation Industry Not on file Not on file Not on file documented as of this encounter Miscellaneous Notes * Telephone Encounter - Mata Zazueta RN - 12/11/2023 12:27 PM EDT Scheduling- please change patient note for treatment this Saturday to say "Keytruda/Carbo/Alimta C1,D1". Please also change treatment time for 2HR to 3HR. I will make patient aware. * Telephone Encounter - Jad Velez OSA - 12/11/2023 10:16 AM EDT Patient scheduled and is aware * Telephone Encounter - Mata Zazueta RN - 12/11/2023 10:10 AM EDT Scheduling- Please schedule patient for 2 hour treatment 12/13/23 "Carbo/Alimta C1,D1" (Toni). No labs needed as they were completed today. * Telephone Encounter - Mata Zazueta RN - 12/11/2023 8:46 AM EDT NGS still pending- need to track prior to first cycle and adjust beacon if not back in time. * Telephone Encounter - Vivian Booker RN - 12/06/2023 2:38 PM EDT Referral entered. * Telephone Encounter - Vivian Booker RN - 12/06/2023 1:12 PM EDT Order received for keytruda, alimta, carbo. [place] plan built. Waiting for auth. Consent signed 12/06/23. Patient will return 12/11/23 to review PET from 12/[address] Muñoz and have nurse education. He would like her to start chemotherapy 12/13/23 potentially. Brain MRI 12/23/23. Will need hep B labs. B12 injection given 12/06/23. Prescriptions (folic, dex, zofran, compazine) sent to pharmacy. *MyGenvar pending from 11/28/23- EGFR results needed prior to treatment starting. If EGFR is not available prior to treatment starting, Dr Toni pintos keytruda HELD during cycle 1* documented in this encounter Plan of Treatment Upcoming Encounters Date Type Department Care Team (Latest Contact Info) Description 12/13/2023 9:00 AM EDT Hem/Onc Treatment Hematology/Oncol ogy Treatment, [place] [address] [facility] [phone] Amparo, Chair 3 Hem Onc Scenery [address] [facility] [address] 12/23/2023 11:00 AM EST Imaging Radiology [address] [place] [address] 12/31/2023 11:15 AM EST Hospital Encounter ENDO OSS, Endoscopy Room [facility] [address] [place] [phone] Clare Rodriguez DO [address] [place] [address] 12/31/2023 11:15 AM EST - 12/31/2023 11:45 AM EST Surgery ENDO OSS, Endoscopy Room [facility] [address] [place] [phone] Clare Rodriguez DO [address] [place] [address] ESOPHAGOGASTRODUODENOSCOPY (EGD), FLEXIBLE, TRANSORAL, DIAGNOSTIC 07/21/2024 8:30 AM EDT Office Visit Family Medicine [address] [place] [phone] Renetta Naidu [address] [place] [address] Pending Results Name Type Priority Associated Diagnoses Date /Time HEPATITIS B SURFACE ANTIBODY Lab STAT Malignant neoplasm of upper lobe of right lung (HCC) Metastasis to mediastinal lymph node (HCC) Encounter for screening for viral disease 12/11/2023 9:15 AM EDT HEPATITIS B SURFACE ANTIGEN Lab STAT Malignant neoplasm of upper lobe of right lung (HCC) Metastasis to mediastinal lymph node (HCC) Encounter for screening for viral disease 12/11/2023 9:15 AM EDT HEPATITIS B CORE ANTIBODIES IGG AND IGM Lab STAT Malignant neoplasm of upper lobe of right lung (HCC) Metastasis to mediastinal lymph node (HCC) Encounter for screening for viral disease 12/11/2023 9:15 AM EDT Scheduled Orders Name Type Priority Associated Diagnoses Orde r Schedule HEPATITIS B SURFACE ANTIBODY Lab STAT Malignant neoplasm of upper lobe of right lung (HCC) Metastasis to mediastinal lymph node (HCC) Encounter for screening for viral disease Expected: 12/06/2023 (Approximate), Expires: 12/05/2024 HEPATITIS B SURFACE ANTIGEN Lab STAT Malignant neoplasm of upper lobe of right lung (HCC) Metastasis to mediastinal lymph node (HCC) Encounter for screening for viral disease Expected: 12/06/2023 (Approximate), Expires: 12/05/2024 HEPATITIS B CORE ANTIBODIES IGG AND IGM Lab STAT Malignant neoplasm of upper lobe of right lung (HCC) Metastasis to mediastinal lymph node (HCC) Encounter for screening for viral disease Expected: 12/06/2023 (Approximate), Expires: 12/05/2024 Scheduled Procedures Name Priority Associated Diagnoses Date/Ti ok ESOPHAGOGASTRODUODENOSCOPY ( EGD), FLEXIBLE, TRANSORAL, DIAGNOSTIC Dysphagia 12/31/2023 11:15 AM EST Health Maintenance Due Date Last [...] this encounter Medical Devices Implanted Type Area Cable Tool Operator Device Identifier Shelf Expiration Date Model / Serial / Lot Device Perm Cntrl [id number] - [id number] Implanted:Qty: 2 on 09/30/2014 by Julio Ramírez MD at OR [facility] N/A: Fallopian Tube [employer] 03/02/2016 [id number] / / [id number] Description:Bilateral tubal documented as of this encounter Visit Diagnoses Diagnosis Malignant neoplasm of upper lobe of right lung (HCC)- Primary Malignant neoplasm of upper lobe, bronchus or lung 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
--- OUTSIDE RECORDS SUMMARY | 2024-02-08 04:28 | External Medical Summary | Summary of Care ---
Author Name Unknown Organization [facility] Address [address] [place] [address] Phone [phone] Care Team Providers Care Block Trimmer Name Role Phone NaiduRenetta philip Primary Care Provider Reason for Visit * Reason Onset Date Comments Precert Future 12/06/2023 henrry Weeks carbo Encounter Details Date Type Department Care Team (Late st Contact Info) Description 12/06/2023 Telephone Hematology/Oncology Treatment, [place] [address] [place] [address] Yogi Muñoz MD [address] [place] [address] Precert Future (Keytruda alimta, carbo) Allergies No [...] encounter Miscellaneous Notes * Telephone Encounter - Clare Obrien OSA - 12/11/2023 12:37 PM EDT Updated and added the 1 hr extra to time slot * Telephone Encounter - Mata Zazueta RN - 12/11/2023 12:[address] Muñoz- NGS testing back, ok to proceed with Keytruda. [place] updated. Scheduling- please change patient note for treatment this Saturday to say "Keytruda/Carbo/Alimta C1,D1". Please also change treatment time for 2HR to 3HR. I will make patient aware. Called patient to inform, no answer, left detailed message on machine with return # for questions. MyG sent as well. * Telephone Encounter - Jad Velez OSA [...] 1:12 PM EDT Order received for keytruda, lukemta carbo. [place] plan built. Waiting for auth. Consent signed [...] not available prior to treatment starting, Dr Muñoz wants keytruda HELD during cycle 1* documented in this encounter Plan of Treatment Upcoming Encounters Date Type Department Care Team (Latest Contact Info) Description 12/13/2023 8:45 AM EDT Hem/Onc Treatment Hematology/Oncol [place]gy Treatment, [place] [address] [place] [phone] Amparo, Chair 2 Hem Onc Scenery [address] [place] [address] 12/23/2023 11:00 AM EST Imaging Radiology [address] [place] [address] 12/31/2023 11:15 AM EST Hospital Encounter ENDO OSSC, Endoscopy Room [facility] [address] [place] [address] Clare Rodriguez DO [address] [place] [address] 12/31/2023 11:15 AM EST - 12/31/2023 11:45 AM EST Surgery ENDO O[facility]C, Endoscopy Room [facility] [address] [place] [address] Clare Rodriguez Peggy, [address] [place] [address] ESOPHAGOGASTRODUODENOSCOPY (EGD), FLEXIBLE, TRANSORAL, DIAGNOSTIC 07/21/2024 8:30 AM EDT Office Visit [address] [place] [address] [place] [address] Pending Results Name Type Priority Associated Diagnoses [...] Scheduled Procedures Name Priority Associated Diagnoses Date/Ti me ESOPHAGOGASTRODUODENOSCOPY ( EGD), FLEXIBLE, TRANSORAL, DIAGNOSTIC Dysphagia [...] this encounter Medical Devices Implanted Type Area Broadcast Supervisor Device Identifier Shelf Expiration Date Model / Serial / Lot Device Perm Cntrl [id number] - [id number] Implanted:Qty: 2 on 09/30/2014 by Julio Ramírez MD at OR [facility] N/A: Fallopian Tube [employer] 03/02/2016 [id number] / / [id number] Description:Bilateral tubal documented as of this encounter Visit Diagnoses Diagnosis Malignant neoplasm of upper lobe of right lung (HCC)- Primary Malignant neoplasm of upper lobe, bronchus or lung 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
--- OUTSIDE RECORDS SUMMARY | 2024-02-08 04:28 | External Medical Summary | Summary of Care ---
Author Name Unknown Organization [facility] Address [address] [place] [address] Phone [phone] Care Team Providers Care Printed Circuit Board Assembly Repairer Name Role Phone Renetta Naidu DO Primary Care Provider [phone] Reason for Visit * Reason Comments Chemotherapy Keytruda/Alimta/Carb o D1C1 * Episode Based Medications (Routine) - Authorized Specialty Diagnoses / Procedures Referred By Contac t Referred To Contact Diagnoses Encounter for antineoplastic chemotherapy Malignant neoplasm of upper lobe of right lung (HCC) Metastasis to mediastinal lymph node (HCC) Procedures PA CARBOPLATIN INJECTION PA INJ. PEMETREXED NOS 10MG PA FOSAPREPITANT INJECTION PA INJ PEMBROLIZUMAB Yogi Muñoz MD [address] [place] [address] [place] [address] Phone: tel: fax: Hematology/Oncology Treatment, [address] [address] Phone: tel: fax: Referral ID Status Reason Start Date Expiration Date V isits Requested Visits Authorized [id number] Authorized 12/06/2023 02/17/[phone] Encounter Details Date Type Department Care Team (Latest Contact Info) Description 12/13/2023 8:45 AM EDT Hem/Onc Treatment Hematology/Oncolog [place] Treatment, [address] [address] Amparo, Chair 2 Hem Onc Scenery [address] [place], [place] [address] Encounter for antineoplastic chemotherapy*; Malignant neoplasm of [...] Description 01/02/2024 9:00 AM EST Laboratory Laboratory [address] [place] [phone] [place] [address] 01/03/2024 9:00 AM EST Office Visit Hematology/Oncology [address] [place] [phone] Consuelo Jarvis CRNP [address] [place] [address] [place] [address] 01/03/2024 9:30 AM EST Hem/Onc Treatment Hematology/Oncology Treatment, [address] [place] [phone] Amparo, Chair [address] [place] [address] 07/21/2024 8:30 AM EDT Office Visit Family Medicine [address] [place] [phone] Renetta Naidu, [address] [place] [address] Health Maintenance Due [...] encounter Medical Devices Implanted Type Area Supervisor Mattress [employer] Boxsprings Device Identifier Shelf Expiration Date Model / Serial / Lot Device Perm Cntrl [id number] - [id number] Implanted:Qty: 2 on 09/30/2014 by Julio Ramírez MD at OR [facility] N/A: Fallopian Tube [employer] 03/02/2016 [id number] / / [id number] Description:Bilateral tubal documented as of this encounter [...] mL/hr documented in this encounter Care Teams Printed Circuit Board Assembly Repairer Relationship Specialty Start Date End Date Renetta Naidu DO [address] [place] [address] [place] [phone] PCP - General Internal Medicine 11/12/23 documented as of this encounter
--- OUTSIDE RECORDS SUMMARY | 2024-02-08 04:28 | External Medical Summary | Summary of Care ---
Author Name Unknown Organization [facility] Address [address] [place] [address] Phone [phone] Care Team Providers Care Efficiency Clerk Name Role Phone Renetta Naidu DO Primary Care Provider [phone] Encounter Details Date Type Department Care Team (Late st Contact Info) Description 12/16/2023 Documentation Genetics HemOnc, C [address] [place] [address] [place]aria Paul, [place] [address] [place] [address] Genetic screening* Allergies No known active allergiesdocumented as of this encounter (statuses as of 12/16/2023) Medications Medication Sig Dispensed Refills Start Date End Date Status lamoTRIgine 100 MG Oral Tablet (LaMICtal) TAKE 1 TABLET BY MOUTH 2 TIME(S) PER DAY 05/04/2020 Active Lybalvi 20-10 MG Oral Tablet ONE TABLET BY MOUTH AT BEDTIME FOR MOOD 04/22/2022 Active Trelegy Ellipta 200-62.5-25 MCG/ACT Aerosol Powder Breath Activated (Fluticasone-Umec lidinium-Vilanter ol)Indications:Mi xed restrictive and obstructive lung disease (HCC) Inhale 1 Puff by mouth in the morning. 30 Blister Dosing Unit 5 09/25/2023 Active Albuterol Sulfate HFA 108 (90 Base) MCG/ACT Inhalation Aerosol SolutionIndicatio ns:Tobacco use,SOB (shortness of breath) Inhale 2 Puffs by mouth every 4 hours as needed for Wheezing. 18 g 1 10/30/2023 Active Pantoprazole Sodium 40 MG Oral Tablet Delayed Release (Protonix)Indicat ions:Dysphagia, unspecified type Take 1 Tablet by mouth in the morning. 30 minutes before the first meal of the day. Do not crush, split or chew the tablet. 30 Tablet 5 11/12/2023 Active predniSONE 20 MG Oral Tablet (Deltasone)Indica tions:Acute pain of right shoulder 2 tablets daily for 5 days then 1 tablet daily 15 Tablet 11/12/2023 Active Additional Information Patient not taking.Reported on 11/26/2023 Rosuvastatin Calcium 10 MG Oral Tablet (Crestor)Indicati ons:Dyslipidemia, goal LDL below 160 TAKE 1 TABLET BY MOUTH EVERY DAY IN THE MORNING 90 Tablet 11/14/2023 Active Folic Acid 1 MG Oral TabletIndications :Malignant neoplasm of upper lobe of right lung (HCC),Metastasis to mediastinal lymph node (HCC) Take 1 Tablet by mouth in the morning. 30 Tablet 5 12/06/2023 Active dexAMETHasone 4 MG Oral Tablet (Decadron)Indicat ions:Malignant neoplasm of upper lobe of right lung (HCC),Metastasis to mediastinal lymph node (HCC) Take 4mg twice a day x3 days starting the day before chemotherapy 36 Tablet 12/06/2023 Active Ondansetron HCl 8 MG Oral Tablet (Zofran)Indicatio ns:Malignant neoplasm of upper lobe of right lung (HCC),Metastasis to mediastinal lymph node (HCC) Take 1 Tablet by mouth every 8 hours as needed for Nausea. 30 Tablet 2 12/06/2023 Active Prochlorperazine Maleate 10 MG Oral Tablet (Compazine)Indica tions:Malignant neoplasm of upper lobe of right lung (HCC),Metastasis to mediastinal lymph node (HCC) Take 1 Tablet by mouth every 6 hours as needed for Nausea. 30 Tablet 2 12/06/2023 Active Hospital, Clinic, or Other Facility Administered [...] as of this encounter (statuses as of 12/16/2023) Active Problems Problem Noted Date Diagnosed Date [...] as of this encounter (statuses as of 12/16/2023) Resolved Problems Problem Noted Date Diagnosed Date Resolved Date Restrictive lung disease 06/15/2022 Depression 05/02/2012 06/15/2022 Generalized anxiety disorder 01/14/2012 06/15/2022 documented as of this encounter (statuses as of 12/16/2023) Immunizations Name Administration Dates Next Due Pneumococcal [...] on file documented as of this encounter Progress Notes * Samaria Paul, MS - 12/16/2023 2:27 PM EDT Cancer Genetics [facility] Assessment [facility] at [facility] E-Consult: Review of Tumor Sequencing for Germline Testing Candidates Summary & Recommendation: Genetics evaluation not warranted. The reported somatic variant(s) are not expected to be of germline etiology. While no variants on this test were reported suggestive of inherited cancer risk, some findings maybe filtered out based on population frequency, reversion to WT, or allelic dropout among other technical limitations common with NGS. Up to 15% of BRCA1/2 and up to 33% of Purcell variants are not detectable through NGS technology and may be missed on this testing. Per Chart Review HPI: Sarah is a 48 year old female with a diagnosis of Non-small cell carcinoma with neuroendocrine differentiation, consistent with large cell neuroendocrine carcinoma. - The malignancy is MSI-Stable and Low TMB. - Prior Germline Testing: No - There is a family history of cancer, but is not suggestive of an inherited cancer syndrome. Family History Problem Relation Name Age of Onset Breast Cancer Grandmother (Maternal) MyGenVar Tumor Sequencing Panel was completed in 11/2023. Note: Review for germline workup is only performed on findings with an associated hereditary cancersyndrome. In general, copy number variation >2 is not of germline concern. Gene Variant Name VAF% Variant Classification TP53 V157F 25.80% Tier 2: Potential significance KEAP1 [id number]*38 28.80% Tier 2: Potential significance ARID1A ARID1A CN 4.6 Tier 3: Unknown clinical significance Unless highlighted in red, the above findings were reviewed and not of germline concern. Samaria Paul, , [facility] - Licensed, Certified Genetic Counselor 12/16/2023, 2:28 PM documented in this encounter Plan of Treatment Upcoming Encounters Date Type Department Care Team (Latest Contact Info) Description 12/23/2023 11:00 AM EST Imaging Radiology [address] [place] [address] 12/31/2023 11:15 AM EST Hospital Encounter ENDO OSSC, Endoscopy Room [facility] [address] [place] [phone] Clare Rodriguez DO [address] [place] [address] 12/31/2023 11:15 AM EST - 12/31/2023 11:45 AM EST Surgery ENDO OSS, Endoscopy Room [facility] [address] [place] [phone] Clare Rodriguez DO [address] [place] [address] ESOPHAGOGASTRODUODENOSCOPY (EGD), FLEXIBLE, TRANSORAL, DIAGNOSTIC 01/02/2024 9:00 AM EST Laboratory Laboratory [address] [place] [address] [place] [address] 01/03/2024 9:00 AM EST Office Visit Hematology/Onco logy Román Christensen [address] [place] [phone] Consuelo Jarvis CRNP [address] [place] [address] 01/03/2024 9:30 AM EST Hem/Onc Treatment Hematology/Onco logy Treatment, [address] [place] [address] [place], Chair 5 Hem Onc Scenery [address] [place] [address] 07/21/2024 8:30 AM EDT Office Visit Family Medicine [address] [place] [phone] [place] [address] Scheduled Procedures Name Priority Associated Diagnoses Date/Ti [...] this encounter Medical Devices Implanted Type Area Immigration Patrol Inspector Device Identifier Shelf Expiration Date Model / Serial / Lot Device Perm Cntrl [id number] - [id number] Implanted:Qty: 2 on 09/30/2014 by Julio Ramírez MD at OR [facility] N/A: Fallopian Tube [employer] 03/02/2016 [id number] / / [id number] Description:Bilateral tubal documented as of this encounter Visit Diagnoses Diagnosis Genetic screening- Primary Other genetic screening Dysphagia Dysphagia, unspecified documented in this encounter Care Teams Efficiency Clerk Relationship Specialty Start Date End Date Renetta Naidu DO [address] [place] [address] [place] [phone] PCP - General Internal Medicine 11/12/23 documented as of this encounter
--- OUTSIDE RECORDS SUMMARY | 2024-02-08 04:28 | External Medical Summary | Summary of Care ---
Author Name Unknown Organization [facility] Address [address] [facility] [address] Phone [phone] Care Team Providers Care Legal Instruments Examiner Name Role Phone NaiduMaciejRenetta Mcdaniel Primary Care Provider [phone] Encounter Details Date Type Department Care Team (Late st Contact Info) Description 12/11/2023 Orders Only Hematology/Oncology Román Christensen [place] [address] [facility] [place] [address] Yogi Muñoz MD [address] [facility] [address] Allergies No known active allergiesdocumented as of [...] AM EDT Hem/Onc Treatment Hematology/Oncol ogy Treatment, [place] [address] [place] [phone] Amparo, Chair 3 Hem Onc Scenery [address] [place] [address] 12/23/2023 11:00 AM EST Imaging Radiology [address] [place] [address] 12/31/2023 11:15 AM EST Hospital Encounter ENDO OSS, Endoscopy Room [facility] [address] [place] [phone] Clare Rodriguez DO [address] [place] [address] 12/31/2023 11:15 AM EST - 12/31/2023 11:45 AM EST Surgery ENDO OSS, Endoscopy Room [facility] [address] [place] [phone] Clare Rodriguez DO [address] [place] [address] ESOPHAGOGASTRODUODENOSCOPY (EGD), FLEXIBLE, TRANSORAL, DIAGNOSTIC 07/21/2024 8:30 AM EDT Office Visit Family Medicine [address] [place] [address] [place] [address] Scheduled Procedures Name Priority Associated Diagnoses Date/Ti [...] this encounter Medical Devices Implanted Type Area Instructional Technology Coach Device Identifier Shelf Expiration Date Model / Serial / Lot Device Perm Cntrl [id number] - [id number] Implanted:Qty: 2 on 09/30/2014 by Julio Ramírez MD at OR [facility] N/A: Fallopian Tube [employer] 03/02/2016 [id number] / / [id number] Description:Bilateral tubal documented as of this encounter Care Teams Legal Instruments Examiner Relationship Specialty Start Date End Date Renetta Naidu DO [address] [place] [address] [place] [address] PCP - General Internal Medicine 11/12/23 documented as of this encounter
--- OUTSIDE RECORDS SUMMARY | 2024-02-08 04:28 | External Medical Summary | Summary of Care ---
Author Name Unknown Organization [facility] Address [address] [place] [address] Phone [phone] Care Team Providers Care Outpatient Interviewing Clerk Name Role Phone Renetta Naidu DO Primary Care Provider Reason for Visit * Reason Comments Treatment Encounter Details Date Type Department Care Team (Late st Contact Info) Description 12/11/2023 9:00 AM EDT Office Visit Hematology/Oncology [facility] [address] [facility] [place] [address] Gómez Muñoz MD [address] [facility] [place] [address] Malignant neoplasm of upper lobe of right lung (HCC)*; Metastasis to mediastinal lymph node (HCC); 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) Allergies No known active allergiesdocumented as [...] Sign Reading Time Taken Comments Blood Pressure 121/80 12/11/2023 8:50 AM EDT Pulse 128 12/11/2023 8:50 AM EDT Temperature 36.2 C (97.2 F) 12/11/2023 8:50 AM ED T Respiratory Rate - - Oxygen Saturation 94% 12/11/2023 8:50 AM EDT Inhaled Oxygen Concentration - - Weight 66.1 kg (145 lb 11.2 oz) 12/11/2023 8:50 AM EDT Height - - Body Mass Index 27.53 12/06/2023 12:06 PM EDT documented in this encounter Progress Notes * Gómez Muñoz MD - 12/11/2023 12:31 PM EDT NGS checkup (11/28/2023 -TMB 4.3 which is low -MSI stable -no actionable mutation -negative for EGFR and ROS1. Will proceed with Keytruda during the 1st cycle of chemotherapy with Alimta and carboplatin which planned on 12/13/2023. * Gómez Muñoz MD - 12/11/2023 9:00 AM EDT Hematology/Oncology Outpatient Consult Note [facility] 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 CURRENT TREATMENT: Planning for systemic chemotherapy with Alimta, carboplatin, Keytruda. Vitamin B12 injection every 9 weekly Folic [...] cancer with neuroendocrine differentiation. -PD-L1 --> 30%. OTHER IMPORTANT HISTORY: -hyperlipidemia, she is on statin therapy. Today advised him to discontinue statin therapy. -GERD -bipolar and depression. She is on Lamictal and Lybalvi INTERVAL HISTORY: She has come the clinic for the follow-up, accompanied by her boyfriend, 1 sister. Currently having some increasing shortness of breath, chronic coughing, some trouble swallowing, slight weight loss, current weight around 145 lb, currently she is not working, ECOG PS 1, no fever, no bleeding from any sites, no abdominal symptoms, no increasing headache. No tingling and numbness of the extremities. Past Medical History: Diagnosis Date Bipolar 1 [...] performed by Shiv Mann MD at OR [facility] HYSTEROSCOPY W/FALLOPIAN IMPLANTS N/A 09/30/2014 HYSTEROSCOPY SURGICAL BILATERAL FALLOPIAN TUBE performed by Julio Ramírez MD at OR [facility] INFORMATION cyst removal on chest. REMOVE GALLBLADDER Current Outpatient Medications Medication Sig Dispense Refill lamoTRIgine 100 MG Oral Tablet (LaMICtal) TAKE 1 TABLET BY MOUTH 2 TIME(S) PER DAY Lybalvi 20-10 MG Oral Tablet ONE TABLET BY MOUTH AT BEDTIME FOR MOOD Trelegy Ellipta 200-62.5-25 MCG/ACT Aerosol Powder Breath Activated (Caetpqkricv-Skohzmqcvhyv-Trvzkqnhsi) Inhale 1 Puff by mouth in the [...] as needed for Nausea. 30 Tablet 2 Current Facility-Administered Medications Medication Dose Route Frequency Provider Last Rate Last Admin Albuterol Sulfate (Proventil) (5 MG/ML) 0.5% *conc* inhalation solution 2.5 mg 2.5 mg Nebulizer PRN Albuterol Sulfate (Proventil) (2.5 MG/3ML) 0.083% inhalation solution 2.5 mg 2.5 mg Nebulizer PRN 2.5 mg at 11/20/23 1418 Family History Problem Relation Name Age of Onset Lung Disorder Mother Other (Hyperlipidemia [Other]) Mother Hypertension Father No Past Hx Sister No Past Hx Sister No Past Hx Sister No Past Hx Sister No Past Hx Sister Breast Cancer Grandmother (Maternal) Social History Socioeconomic History Marital status: Single [...] Cigarettes Smokeless tobacco: Never Tobacco comments: 1 1/2 ppd. Every day smoker. 10/28/23. Vaping Use Vaping status: Never Used Substance and Sexual Activity Alcohol use: Not Currently Comment: occasionally Drug use: No Sexual activity: Yes Partners: Male control/protection: Injection Comment: depo Other Topics Concern Not on file Social History Narrative Not on file Social Determinants of Health Financial Resource Strain: Not on file Food Insecurity: Not on file Transportation Needs: Not on file Social Connections: Unknown (08/06/2023) Social Connections How often do you feel lonely or isolated from those around you? (Adult - for ages 18 years and over): Not on file Housing Stability: Not on file On Exam: LMP 02/01/2021 (Approximate) BP 121/80 (BP Site: Left Arm, BP Position: Sitting, BP Cuff Size: Regular) | Pulse 128 | Temp 36.2 C (97.2 F) (Tympanic) | Wt 66.1 kg (145 lb 11.2 oz) | LMP 02/01/2021 (Approximate) | SpO2 94% | BMI 27.53 kg/m | BSA 1.69 m Constitutional: Patient is alert, cooperative and oriented x 3. Well built female, Patient is in noacute distress. HEENT: No icterus, no pallor, Throat and pharynx normal. Sinuses are non-tender. Neck: Supple and without lymphadenopathy or masses. No JVD. No Palpable supraclavicular lymph nodes. Lungs: Emphysematous chest, decreased air entry in the right lung, Cardiovascular: Normal heart sounds, no murmurs.Regular rate and rhythm. Abdomen: Soft, nontender, no hepatomegaly, no splenomegaly. Bowel sounds are normal. Neurological: No gross focal neurological deficit; walks with a normal gait. Extremities: Finger clubbing present No cyanosis. No leg edema. Skin:: No skin rash. SPINE: No spinal or paraspinal tenderness. LABS: Blood workup done on 12/11/2023: -BUN/Creat: 8/0.7, Calcium 9.9, normal LFT. -WBC 72495, Hemoglobin and hematocrit -15/435, Platelet count of 327373. -ANC 56009. IMAGING: PET-CT scan done on 12/09/2023: -FDG avid right upper lobe mass with numerous bilateral FDG avid lung nodules, -FDG avid right hilar/mediastinal, lower paraesophageal, gastrohepatic as well as liver metastasis. 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 Longstanding history of smoking noted she has cut down recently. -PD-L1 30%. I reviewed with her and her family members regarding the PET-CT scan findings and imaging studies, reviewed the blood workup done today. Overall she has stage IV disease, has liver metastatic disease. She will have a brain imaging studyin the near future. NGS checkup result pending. Last week I talked to her about starting chemotherapy with Alimta and carboplatin, once again reviewed with the treatment schedule side effect profile and she is in agreement for that. We talked about overall treatment goal which would be palliative and not curative. No role of surgery, no role of radiation treatment at this time. During the 1st cycle she will receive Alimta and carboplatin. She already received Vitamin B12 injection last week, she will continue take oral folic acid supplementation. Planning start chemotherapy on 12/13/2023. She will take Compazine and Zofran for the symptomatic treatment of nausea and vomiting. After reviewing the NGS checkup, will add Keytruda during the 2nd cycle. Will see her before the 2nd cycle. Dr. Gómez Muñoz Hem/Onc (This note was completed using the dictation program Fluency Direct. As such, there may be misspellings word substitutions, or other variations that should not change the essence of the clinical content of this encounter note. If there is need for further clarification, please direct questions to the provider listed above.) documented in this encounter Nursing Notes * Talisha Tian, IRENE LINK - 12/11/2023 8:53 AM EDT Patient identifed by name and birthdate Do [...] it for you? ALREADY ACTIVE Filed Vitals: 12/11/23 0850 BP: 121/80 Pulse: 128 Temp: 36.2 C (97.2 F) TempSrc: Tympanic SpO2: 94% Weight: 66.1 kg (145 lb 11.2 oz) Patient was instructed to not get [...] comprehension of instructions. documented in this encounter Miscellaneous Notes * Addendum Note - Gómez Muñoz MD - 12/11/2023 12:32 PM EDTAddended by: GÓMEZ MUÑOZ on: 12/11/2023 12:32 PM Modules accepted: Orders documented in this encounter Plan of Treatment Upcoming Encounters Date Type Department Care Team (Latest Contact Info) Description 12/13/2023 9:00 AM EDT Hem/Onc Treatment Hematology/Oncol ogy Treatment, [place] [address] [place] [phone] Amparo, Chair 3 Hem Onc Scenery [address] [place] [address] 12/23/2023 11:00 AM EST Imaging Radiology [address] [place] [address] 12/31/2023 11:15 AM EST Hospital Encounter ENDO [facility], Endoscopy Room [facility] [address] [place] [phone] Clare Rodriguez DO [address] [place] [address] 12/31/2023 11:15 AM EST - 12/31/2023 11:45 AM EST Surgery ENDO [facility], Endoscopy Room [facility] [address] [place] [phone] Clare Rodriguez [address] [place] [address] ESOPHAGOGASTRODUODENOSCOPY (EGD), FLEXIBLE, TRANSORAL, DIAGNOSTIC 07/21/2024 8:30 AM EDT Office Visit [address] [place] [phone] Renetta Naidu, [address] [place] [address] Scheduled Procedures Name Priority Associated Diagnoses Date/Ti [...] this encounter Medical Devices Implanted Type Area Loom Setter Device Identifier Shelf Expiration Date Model / Serial / Lot Device Perm Cntrl [id number] - [id number] Implanted:Qty: 2 on 09/30/2014 by Julio Ramírez MD at OR [facility] N/A: Fallopian Tube [employer] 03/02/2016 [id number] / / [id number] Description:Bilateral tubal documented as of this encounter Visit Diagnoses Diagnosis Malignant neoplasm of upper lobe of right lung (HCC)- Primary Malignant neoplasm of upper lobe, bronchus or lung 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
--- OUTSIDE RECORDS SUMMARY | 2024-02-08 04:28 | External Medical Summary | Summary of Care ---
Author Name Unknown Organization [facility] Address [address] [place] [address] Phone [phone] Care Team Providers Care Superintendent Operations Division Name Role Phone NaiduRenetta philip Primary Care Provider Reason for Visit * Reason Onset Date Comments Advice 12/18/2023 Toni Encounter Details Date Type Department Care Team (Late st Contact Info) Description 12/18/2023 Telephone Hematology/Oncology [facility] [place] [address] [facility] [place] [address] Services, Scheduling [address] [place] [address] Advice (Toni) Allergies No known active allergiesdocumented as of this encounter (statuses as of 12/18/2023) Medications Medication Sig Dispensed Refills Start Date [...] for Nausea. 30 Tablet 2 12/06/2023 Active LORazepam 0.5 MG Oral Tablet (Ativan)Indicatio ns:Malignant neoplasm of upper lobe of right lung (HCC),Metastasis to mediastinal lymph node (HCC) Take 1 tablet 1 hour prior to MRI. Can take additional tablet at MRI if needed 2 Tablet 12/18/2023 Active Hospital, Clinic, or Other Facility Administered [...] as of this encounter (statuses as of 12/18/2023) Active Problems Problem Noted Date Diagnosed Date [...] as of this encounter (statuses as of 12/18/2023) Resolved Problems Problem Noted Date Diagnosed Date Resolved Date Restrictive lung disease 06/15/2022 Depression 05/02/2012 06/15/2022 Generalized anxiety disorder 01/14/2012 06/15/2022 documented as of this encounter (statuses as of 12/18/2023) Immunizations Name Administration Dates Next Due Pneumococcal [...] Telephone Encounter - Mata Zazueta RN - 12/18/2023 2:44 PM EDT See separate encounter- tried calling patient again, no answer, sent MyG. * Telephone Encounter - Vivian Booker RN - 12/18/2023 10:06 AM EDT Left message for patient to return call. Will also need to review ativan for upcoming MRI (requested by patient- pended rx in other encounter from today). * Telephone Encounter - Pee Bocanegra OSA - 12/18/2023 9:31 AM EDT Patient called to report that she has thrush in her mouth after chemo treatment. Please give her a call back. documented in this encounter Plan of Treatment Upcoming Encounters Date Type Department Care Team (Latest Contact Info) Description 12/23/2023 11:00 AM EST Imaging Radiology [address] [place] [address] 12/31/2023 11:15 AM EST Hospital Encounter ENDO [facility], Endoscopy Room [facility] [address] [place] [phone] Clare Rodriguez, [address] [place] [address] 12/31/2023 11:15 AM EST - 12/31/2023 11:45 AM EST Surgery ENDO [facility], Endoscopy Room [facility] [address] [place] [phone] Clare Rodriguez DO [address] [place] [address] ESOPHAGOGASTRODUODENOSCOPY (EGD), FLEXIBLE, TRANSORAL, DIAGNOSTIC 01/02/2024 9:00 AM EST Laboratory Laboratory [address] [place] [phone] [place], Lab [address] [place] [address] 01/03/2024 9:00 AM EST Office Visit [place]ology[place] [place] [address] Consuelo Jarvis CRNP [address] [place] [address] [place] [address] 01/03/2024 9:30 AM EST Hem/Onc Treatment [facility] [employer] [address] [place] [address] Amparo, Chair [address] [facility] [address] [facility] [address] [facility] [place] [address] 07/21/2024 8:30 AM EDT Office Visit Family Medicine [address] [place] [phone] [address] [place] [address] Scheduled Procedures Name Priority Associated Diagnoses Date/Ti [...] this encounter Medical Devices Implanted Type Area Donor Services Specialist Device Identifier Shelf Expiration Date Model / Serial / Lot Device Perm Cntrl [id number] - [id number] Implanted:Qty: 2 on 09/30/2014 by Julio Ramírez MD at OR [facility] N/A: Fallopian Tube [employer] 03/02/2016 [id number] / / [id number] Description:Bilateral tubal documented as of this encounter Care Teams Superintendent Operations Division Relationship Specialty Start Date End Date Renetta Naidu DO [address] [place] [address] [place] [id number] PCP - General Internal Medicine 11/12/23 documented as of this encounter
--- OUTSIDE RECORDS SUMMARY | 2024-02-08 04:28 | External Medical Summary | Summary of Care ---
Author Name Unknown Organization [facility] Address [address] [place] [address] Phone [phone] Care Team Providers Care Sales Exhibitor Name Role Phone NaiduRenetta philip Primary Care Provider Reason for Visit * Reason Onset Date Comments Med Request 12/18/2023 Toni Encounter Details Date Type Department Care Team (Late st Contact Info) Description 12/18/2023 Refill [facility] [place] [address] [facility] [place] [address] Services, Scheduling [address] [place] [address] Malignant neoplasm of upper lobe of right lung (HCC)*; Metastasis to mediastinal lymph node (HCC) Allergies [...] Cigarettes 1.5 31 Smokeless Tobacco: Never Comments:1 /2 ppd. Every da y smoker. 10/28/23. Alcohol [...] Encounter - Mata Zazueta RN - 12/18/2023 11:06 AM EDT Tried calling patient again, no answer, did not leave 2nd voicemail. Sent MyG. * Telephone Encounter - Yogi Muñoz MD - 12/18/2023 11:02 AM EDT E-prescribed Ativan. Yogi Muñoz MD Hem/Onc * Telephone Encounter - Vivian Booker RN - 12/18/2023 10:06 AM EDT Pended ativan. Left message for patient to return call to discuss. * Telephone Encounter - Pee Bocanegra OSA - 12/18/2023 9:28 AM EDT Patient called requesting for medication that will help her relax for her upcoming MRI. Please give her a call back to advise. documented in this encounter Plan of Treatment Upcoming Encounters Date Type Department Care Team (Latest Contact Info) Description 12/23/2023 11:00 AM EST Imaging Radiology [address] [place] [address] 12/31/2023 11:15 AM EST Hospital Encounter ENDO [facility], Endoscopy Room [facility] [address] [place] [phone] Clare Rodriguez DO [address] [place] [address] 12/31/2023 11:15 AM EST - 12/31/2023 11:45 AM EST Surgery ENDO [facility], Endoscopy Room [facility] [address] [place] [phone] Clare Rodriguez DO [address] [place] [address] ESOPHAGOGASTRODUODENOSCOPY (EGD), FLEXIBLE, TRANSORAL, DIAGNOSTIC 01/02/2024 9:00 AM EST Laboratory Laboratory [address] [place] [phone] [facility] [address] [place] [address] 01/03/2024 9:00 AM EST Office Visit Hematology/Onco logy [facility] [place] [address] [place] [phone] Consuelo Jarvis CRNP [address] [place] [address] 01/03/2024 9:30 AM EST Hem/Onc Treatment Hematology/Onco logy Treatment, [place] [address] [place] [phone] Amparo, Chair 5 Hem Onc [place] [address] [place] [address] 07/21/2024 8:30 AM EDT Office Visit Family Medicine [address] [place] [phone] [address] [place] [address] Scheduled Procedures Name Priority Associated Diagnoses Date/Ti [...] this encounter Medical Devices Implanted Type Area Occupational Medicine Physician Device Identifier Shelf Expiration Date Model / Serial / Lot Device Perm Cntr [id number] - [id number] Implanted:Qty: 2 on 09/30/2014 by Julio Ramírez MD at OR [facility] N/A: Fallopian Tube [employer] 03/02/2016 [id number] / / [id number] Description:Bilateral tubal documented as of this encounter Visit Diagnoses Diagnosis Malignant neoplasm of upper lobe of right lung (HCC)- Primary Malignant neoplasm of upper lobe, bronchus or lung 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
--- OUTSIDE RECORDS SUMMARY | 2024-02-08 04:28 | External Medical Summary | Summary of Care ---
Author Name Unknown Organization [facility] Address [address] [place] [address] Phone [phone] Care Team Providers Care Power Tool Repair Technician Name Role Phone NaiduRenetta philip Primary Care Provider [phone] Reason for Visit * Reason Onset Date Comments Precert Future 12/06/2023 henrry Weeks carbo Encounter Details Date Type Department Care Team (Late st Contact Info) Description 12/06/2023 Telephone Hematology/Oncology Treatment, [place] [address] [place] [address] Yogi Muñoz MD [address] [place] [address] Precert Future (Keytruda alimta, carbo) Allergies No [...] testing back, ok to proceed with Keytruda. [place] updated. Scheduling- please change patient note for [...] EDT Order received for keytruda, alimta, carbo. [place] plan built. Waiting for auth. Consent signed [...] AM EDT Hem/Onc Treatment Hematology/Oncol ogy Treatment, [place] [address] [place] [phone] [place]o, Chair 3 Hem Onc [facility] [address] [facility] [address] 12/23/2023 11:00 AM EST Imaging Radiology [address] [place] [address] 12/31/2023 11:15 AM EST Hospital Encounter ENDO [facility], Endoscopy Room [facility] [address] [place] [phone] Clare Rodriguez DO [address] [place] [address] 12/31/2023 11:15 AM EST - 12/31/2023 11:45 AM EST Surgery ENDO [facility], Endoscopy Room [facility] [address] [place] [phone] Clare Rodriguez DO [address] [place] [address] ESOPHAGOGASTRODUODENOSCOPY (EGD), FLEXIBLE, TRANSORAL, DIAGNOSTIC 07/21/2024 8:30 AM EDT Office Visit Family Medicine [address] [place] [phone] [place] [address] Pending Results Name Type Priority Associated Diagnoses [...] shot) (#1) 2023 12/14/2011 Cologuard 07/05/2025 07/05/2022, 05/09/2022, 06/25/2022 Colorectal Cancer Screening 07/05/2025 Diabetes Screening [...] this encounter Medical Devices Implanted Type Area [employer] Bi Architect Device Identifier Shelf Expiration Date Model / Serial / Lot Device Perm Cntrl [id number] - [id number] Implanted:Qty: 2 on 09/30/2014 by Julio Ramírez MD at OR [facility] N/A: Fallopian Tube [employer] 03/02/2016 [id number] / / [id number] Description:Bilateral tubal documented as of this encounter Visit Diagnoses Diagnosis Malignant neoplasm of upper lobe of right lung (HCC)- Primary Malignant neoplasm of upper lobe, bronchus or lung 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
--- OUTSIDE RECORDS SUMMARY | 2024-02-08 04:28 | External Medical Summary | Summary of Care ---
Author Name Unknown Organization [facility] Address [address] [place] [address] Phone [phone] Care Team Providers Care Physical Security Engineer Name Role Phone Naidu Renetta Mcdaniel Primary Care Provider Reason for Visit * Reason Onset Date Comments Test Results Imaging Study 12/24/2023 Encounter Details Date Type Department Care Team (Late st Contact Info) Description 12/24/2023 Telephone Hematology/Oncology Treatment, [place] [address] [place] [address] Yogi Muñoz MD [address] [place] [address] Test Results Imaging Study Allergies No known active allergiesdocumented as of this encounter (statuses as of 12/24/2023) Medications Medication Sig Dispensed Refills Start Date [...] as of this encounter (statuses as of 12/24/2023) Active Problems Problem Noted Date Diagnosed Date [...] as of this encounter (statuses as of 12/24/2023) Resolved Problems Problem Noted Date Diagnosed Date Resolved Date Restrictive lung disease 06/15/2022 Depression 05/02/2012 06/15/2022 Generalized anxiety disorder 01/14/2012 06/15/2022 documented as of this encounter (statuses as of 12/24/2023) Immunizations Name Administration Dates Next Due Pneumococcal [...] Telephone Encounter - Vivian Booker RN - 12/24/2023 12:31 PM EST MyG sent. * Telephone Encounter - Vivian Booker RN - 12/24/2023 12:31 PM EST ----- Message from Yogi Muñoz MD sent at 12/24/2023 6:26 AM EST ----- Brain MRI done on 12/23/2023: - No evidence of metastatic disease. documented in this encounter Plan of Treatment Upcoming Encounters Date Type Department Care Team (Late st Contact Info) Description 01/02/2024 9:00 AM EST Laboratory Laboratory [address] [place] [phone] [address] [place] [address] 01/03/2024 9:00 AM EST Office Visit Hematology/Oncology [facility] 200 [facility] [place] [address] Consuelo Jarvis, JUAN [facility] [place] [address] 01/03/2024 9:30 AM EST Hem/Onc Treatment Hematology/Oncology Treatment, [place] 200 [facility] [place] [phone] Amparo, Chair 5 Hem Onc [facility] 200 [facility] [place] [address] 07/21/2024 8:30 AM EDT Office Visit Family Medicine [address] [phone] [place] [address] Health Maintenance Due Date Last Done Comments [...] this encounter Medical Devices Implanted Type Area Mandrel Cleaner Device Identifier Shelf Expiration Date Model / Serial / Lot Device Perm Cntrl [id number] - [id number] Implanted:Qty: 2 on 09/30/2014 by Julio Ramírez MD at OR [facility] N/A: Fallopian Tube [employer] 03/02/2016 [id number] / / [id number] Description:Bilateral tubal documented as of this encounter Care Teams Physical Security Engineer Relationship Specialty Start Date End Date Renetta Naidu DO [address] [place] [address] [place] [id number] PCP - General Internal Medicine 11/12/23 documented as of this encounter
--- OUTSIDE RECORDS SUMMARY | 2024-02-08 04:28 | External Medical Summary | Summary of Care ---
Author Name Unknown Organization [facility] Address [address] [place] [address] Phone [phone] Care Team Providers Care Mule Developer Name Role Phone NaiduRenetta philip Primary Care Provider Reason for Visit * Reason Onset Date Comments Med Request 12/18/2023 Toni Encounter Details Date Type Department Care Team (Late st Contact Info) Description 12/18/2023 Refill [facility]ology[facility] [place] 200 [facility] [place] [place] [address] Services, Scheduling [address] [place] [address] Malignant neoplasm of upper lobe of right [...] Description 12/23/2023 11:00 AM EST Imaging Radiology [address] [place] [address] 12/31/2023 11:15 AM EST Hospital Encounter ENDO [facility], Endoscopy Room [facility] [address] [place] [phone] Clare Rodriguez DO [address] [place] [address] 12/31/2023 11:15 AM EST - 12/31/2023 11:45 AM EST Surgery ENDO [facility], Endoscopy Room [facility] [address] [place] [address] Clare Rodriguez DO [address] [place] [address] ESOPHAGOGASTRODUODENOSCOPY (EGD), FLEXIBLE, TRANSORAL, DIAGNOSTIC 01/02/2024 9:00 AM EST Laboratory Laboratory [address] [place] [address] [facility] [address] [place] [address] 01/03/2024 9:00 AM EST Office Visit Hematology/Onco logy Román Christensen [place] 200 Román Rios [place] [phone] Consuelo Jarvis CRNP [address] [place] [address] 01/03/2024 9:30 AM EST Hem/Onc Treatment Hematology/Onco logy Treatment, [place] [address] [place] [address] Amparo, Chair 5 Hem Onc [place] [address] [place] [address] 07/21/2024 8:30 AM EDT Office Visit Family Medicine [address] [place] [phone] [place] [address] Scheduled Procedures Name Priority Associated Diagnoses Date/Ti [...] this encounter Medical Devices Implanted Type Area Wound/Ostomy Clinical Nurse Specialist Device Identifier Shelf Expiration Date Model / Serial / Lot Device Perm Cntr [id number] - [id number] Implanted:Qty: 2 on 09/30/2014 by Julio Ramírez MD at OR [facility] N/A: Fallopian Tube [employer] 03/02/2016 [id number] / / [id number] Description:Bilateral tubal documented as of this encounter Visit Diagnoses Diagnosis Malignant neoplasm of upper lobe of right lung (HCC)- Primary Malignant neoplasm of upper lobe, bronchus or lung 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
--- OUTSIDE RECORDS SUMMARY | 2024-02-08 04:28 | External Medical Summary | Summary of Care ---
Author Name Unknown Organization [facility] Address [address] [place] [address] Phone [phone] Care Team Providers Care Tafe Lecturer Name Role Phone Renetta Naidu DO Primary Care Provider Reason for Visit * Reason Comments Chemotherapy Keytruda/Alimta/Carb o D1C1 * Episode Based Medications (Routine) - Authorized Specialty Diagnoses / Procedures Referred By Contac t Referred To Contact Diagnoses Encounter for antineoplastic chemotherapy Malignant neoplasm of upper lobe of right lung (HCC) Metastasis to mediastinal lymph node (HCC) Procedures CA CARBOPLATIN INJECTION CA INJ. PEMETREXED NOS 10MG CA FOSAPREPITANT INJECTION CA INJ PEMBROLIZUMAB Yogi Muñoz MD 200 [facility] [place] [address] Anc Hem/Onc [address] [address] Referral ID Status Reason Start Date Expiration Date V isits Requested Visits Authorized [id number] Authorized 12/06/2023 02/17/2099 [id number] Encounter Details Date Type Department Care Team (Latest Contact Info) Description 12/13/2023 8:45 AM EDT Hem/Onc Treatment Hematology/Oncolog y Treatment, [address] [address] Amparo, Chair 2 Hem Onc [place] [address] [place] [address] Encounter for antineoplastic chemotherapy*; Malignant neoplasm of upper lobe of right lung (HCC); Metastasis to mediastinal lymph node (HCC) Allergies No known active allergiesdocumented as of this encounter (statuses as of 12/13/2023) Medications Medication Sig Dispensed Refills Start Date [...] as of this encounter (statuses as of 12/13/2023) Active Problems Problem Noted Date Diagnosed Date [...] as of this encounter (statuses as of 12/13/2023) Resolved Problems Problem Noted Date Diagnosed Date Resolved Date Restrictive lung disease 06/15/2022 Depression 05/02/2012 06/15/2022 Generalized anxiety disorder 01/14/2012 06/15/2022 documented as of this encounter (statuses as of 12/13/2023) Immunizations Name Administration Dates Next Due Pneumococcal [...] Description 12/23/2023 11:00 AM EST Imaging Radiology [address] [place] [address] 12/31/2023 11:15 AM EST Hospital Encounter ENDO [facility], Endoscopy Room [facility] [address] [place] [phone] Clare Rodriguez DO [address] [place] [address] 12/31/2023 11:15 AM EST - 12/31/2023 11:45 AM EST Surgery ENDO [facility], Endoscopy Room [facility] [address] [place] [phone] Clare Rodriguez DO [address] [place] [address] ESOPHAGOGASTRODUODENOSCOPY (EGD), FLEXIBLE, TRANSORAL, DIAGNOSTIC 01/02/2024 9:00 AM EST Laboratory Laboratory [address] [place] [phone] [facility] [address] [place] [address] 01/03/2024 9:00 AM EST Office Visit Hematology/Onco logy Román Christensen [place] [address] [place] [phone] Consuelo Jarvis CRNP [address] [place] [address] 01/03/2024 9:30 AM EST Hem/Onc Treatment Hematology/Onco logy Treatment, [place] [address] [place] [phone] Amparo, Chair 5 Hem Onc [place] [address] [place] [address] 07/21/2024 8:30 AM EDT Office Visit Family [address] [place] [phone] [place] [address] Scheduled Procedures Name Priority Associated Diagnoses Date/Ti [...] this encounter Medical Devices Implanted Type Area Analytical Chemistry Teacher Device Identifier Shelf Expiration Date Model / Serial / Lot Device Perm Cntrl [id number] - [id number] Implanted:Qty: 2 on 09/30/2014 by Julio Ramírez MD at OR [facility] N/A: Fallopian Tube [employer] 03/02/2016 [id number] / / [id number] Description:Bilateral tubal documented as of this encounter Visit Diagnoses Diagnosis Encounter for antineoplastic chemotherapy- Primary Malignant neoplasm of upper lobe of right lung (HCC) Malignant neoplasm of upper lobe, bronchus or lung 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 Dysphagia Dysphagia, unspecified documented in this encounter Administered Medications Active Administered Medications - up to 3 most recent administrations Medication Order MAR Action Action Date Dose Rate Site diphenhydrAMINE (Benadryl) inj 50 mg 50 mg, IV Push, ONCE PRN Other, Hypersensitivity Reaction, Starting on Sat12/13/23 at 0911, Until 12/14/23 at 0910, For 24 hours EPINEPHrine 1 MG/ML inj 0.3 mg 0.3 mg, Intramuscular, ONCE PRN Other, Hypersensitivity Reaction or Anaphylaxis, Starting on Sat12/13/23 at 0911, Until 12/14/23 at 0910, For 24 hours hEParin 100 UNIT/ML Lock Flush inj 500 Units 500 Units (5 mL), IV Lock, PRN Other, IV Flush, Starting on Sat12/13/23 at 0911, Until 12/14/23 at 0910, For 24 hours, Do not flush if lock, PICC, or central line not in place; IV infusing or unable to flush. Hydrocortisone Sod Suc (PF) (Solu-Cortef) inj 100 mg 100 mg, IV Push, ONCE PRN Other, Hypersensitivity Reaction, Starting on Sat12/13/23 at 0911, Until 12/14/23 at 0910, For 24 hours LORAzepam (Ativan) tab 0.5 mg 0.5 mg, Oral, ONCE PRN Anxiety, Nausea, Starting on Sat12/13/23 at 1015, Until Discontinued meperidine (Demerol) 25 MG/ML inj 25 mg 25 mg, Intramuscular, ONCE PRN Shivering, Chills/Rigors from acute infusion reaction, Starting on Sat12/13/23 at 0911, Until 12/14/23 at 0910, For 24 hours NSS infusion Intravenous, at 50 mL/hr, PRN, Starting on Sat12/13/23 at 1015, Until Discontinued, Maintenance line Start Infusion 12/13/2023 9:15 AM EDT 50 mL/hr oxygen GAS Inhalation, OXYGEN, First dose on Sat12/13/23 at 0945, Until Discontinued, Device/Managed by: Low Flow Device, [...] saturation is greater than or equal to 93% sodium chloride 0.9 % flush central line 10 mL 10 mL, IV Push, PRN Other, IV Flush, Starting on Sat12/13/23 at 0911, Until 12/14/23 at 0910, For 24 hours, Do not flush if lock, PICC, or central line not in place; IV infusing or unable to flush. Inactive Administered Medications - up to 3 [...] finished, ONCE, 1 dose, On Sat12/13/23 at 1130 Start Infusion 12/13/2023 11:53 AM EDT 557 mg 510 mL/hr Fosaprepitant Dimeglumine (Emend) 150 mg, ondansetron (Zofran) 16 mg, dexamethasone sodium phosphate 12 mg in NSS 250 mL Infusion 150 mg, IV Piggyback, ONCE, 1 dose, On Sat12/13/23 at 1015, Administer over 30 Minutes, Infuse over 30 minutes. Give 30 minutes prior to chemotherapy. Start Infusion 12/13/2023 9:17 AM EDT 150 mg 538.4 mL/hr Pembrolizumab (Keytruda) 200 mg in NSS 100 mL infusion 200 mg, IV Piggyback, ONCE, 1 dose, On Sat12/13/23 at 1015, Administer over 30 Minutes, Infuse through 0.2 micron filter. Start Infusion 12/13/2023 10:03 AM EDT 200 mg 226 mL/hr PEMEtrexed Disodium (Alimta) 800 mg in NSS 100 mL infusion 800 mg (rounded from 840 mg = 500 mg/m2 1.68 m2 Treatment Plan BSA from Recorded weight), IV Piggyback, ONCE, 1 dose, On Sat12/13/23 at 1045, Administer over 10 Minutes Start Infusion 12/13/2023 10:48 AM EDT 800 mg 630 mL/hr documented in this encounter Care Teams Tafe Lecturer Relationship Specialty Start Date End Date Renetta Naidu DO [address] [place] [address] [place] [address] PCP - General Internal Medicine 11/12/23 documented as of this encounter
--- OUTSIDE RECORDS SUMMARY | 2024-02-08 04:28 | External Medical Summary | Summary of Care ---
Author Name Unknown Organization [facility] Address [address] [facility] [place] [address] Phone [phone] Care Team Providers Care Trim Attacher Name Role Phone Maciej Naiduanda Mcdaniel Primary Care Provider Reason for Visit * Reason Onset Date Comments Follow Up 12/16/2023 S/P C1,D1 [place]/Carbo Encounter Details Date Type Department Care Team (Late st Contact Info) Description 12/16/2023 Telephone Hematology/Oncology [facility] [place] 200 [facility] [place] [address] Yogi Muñoz MD 200 [facility] [place] [address] Follow Up (S/P C1,D1 [place]/Carbo) Allergies No known active allergiesdocumented as of [...] Telephone Encounter - Mata Zazueta RN - 12/16/2023 3:38 PM EDT HEMATOLOGY/ONCOLOGY INITIAL CHEMO FOLLOW-UP Post chemo side effects: Fatigue- minimal to moderate3 Understands post treatment medications: Yes Understands to call office prior to ER visit/or with issues: Yes Aware of next appointment: Yes Additional information: Pt denies diarrhea/nausea/fever. She states some fatigue but overall she isdoing well. Denies issues with oral intake. documented in this encounter Plan of Treatment Upcoming Encounters Date Type Department Care Team (Latest Contact Info) Description 12/23/2023 11:00 AM EST Imaging Radiology [address] [place] [address] 12/31/2023 11:15 AM EST Hospital Encounter [facility], Endoscopy Room [facility] [address] [place] [address] Clare Rodriguez DO [address] [place] [address] 12/31/2023 11:15 AM EST - 12/31/2023 11:45 AM EST Surgery [facility], Endoscopy Room [facility] [address] [place] [phone] Clare Rodriguez DO [address] [place] [address] ESOPHAGOGASTRODUODENOSCOPY (EGD), FLEXIBLE, TRANSORAL, DIAGNOSTIC 01/02/2024 9:00 AM EST Laboratory Laboratory [address] [place] [phone] [place] [address] 01/03/2024 9:00 AM EST Office Visit Hematology/Onco logy [facility] Amparo [address] [place] [address] Consuelo Jarvis CRNP 400 [facility] [place] [address] 01/03/2024 9:30 AM EST Hem/Onc Treatment Hematology/Onco log Treatment [address] [place] [phone] Amparo, Chair 5 Hem Onc [address] [place] [address] 07/21/2024 8:30 AM EDT Office Visit Family Medicine [address] [place] [phone] Renetta Naidu [address] [place] [address] Scheduled Procedures Name Priority Associated Diagnoses Date/Ti [...] this encounter Medical Devices Implanted Type Area Rocket Assembly Operator Device Identifier Shelf Expiration Date Model / Serial / Lot Device Perm Cntrl [id number] - [id number] Implanted:Qty: 2 on 09/30/2014 by Julio Ramírez MD at OR [facility] N/A: Fallopian Tube [employer] 03/02/2016 [id number] / / [id number] Description:Bilateral tubal documented as of this encounter Care Teams Trim Attacher Relationship Specialty Start Date End Date Renetta Naidu DO [address] [place] [address] [place] [phone] PCP - General Internal Medicine 11/12/23 documented as of this encounter
--- OUTSIDE RECORDS SUMMARY | 2024-02-08 04:28 | External Medical Summary | Summary of Care ---
Author Name Unknown Organization [facility] Address [address] [place] [address] Phone [phone] Care Team Providers Care Retention Manager Name Role Phone Renetta Naidu DO Primary Care Provider Reason for Visit * Reason Comments Treatment Encounter Details Date Type Department Care Team (Late st Contact Info) Description 12/11/2023 9:00 AM EDT Office Visit Hematology/Oncology [facility] 200 [place] [address] Yogi Muñoz MD [address] [place] [address] Malignant neoplasm of upper lobe of right [...] documented in this encounter Progress Notes * Yogi Muñoz MD - 12/11/2023 9:00 AM EDT Hematology/Oncology Outpatient Consult Note Pina France Barlow [address] [place] [address] SARAH ONEILL MR # [id number] :1975 48-year-old female, Date of consultation:12/06/2023 DIAGNOSIS: [...] performed by Shiv Mann MD at OR [facility] HYSTEROSCOPY W/FALLOPIAN IMPLANTS N/A 09/30/2014 HYSTEROSCOPY SURGICAL BILATERAL FALLOPIAN TUBE performed by Julio Ramírez MD at OR [facility] INFORMATION cyst removal on chest. REMOVE GALLBLADDER Current Outpatient Medications Medication Sig Dispense Refill lamoTRIgine 100 MG Oral Tablet (LaMICtal) TAKE 1 TABLET BY MOUTH 2 TIME(S) PER DAY Lybalvi 20-10 MG Oral Tablet ONE TABLET BY MOUTH AT BEDTIME FOR MOOD Trelegy Ellipta 200-62.5-25 MCG/ACT Aerosol Powder Breath Activated (Vfeqjytqeak-Ikmqwugdzyjd-Zcxsefbsyi) Inhale 1 Puff by mouth in the [...] -BUN/Creat: 8/0.7, Calcium 9.9, normal LFT. -WBC 22377, Hemoglobin and hematocrit -15/435, Platelet count of 496074. -ANC 52995. IMAGING: PET-CT scan done on 12/09/2023: -FDG [...] see her before the 2nd cycle. Dr. Yogi Muñoz Hem/Onc (This note was completed using the dictation program Fluency Direct. As such, there may be misspellings word substitutions, or other variations that should not change the essence of the clinical content of this encounter note. If there is need for further clarification, please direct questions to the provider listed above.) documented in this encounter Nursing Notes * Talisha Tian, IRENE ASSIST - 12/11/2023 8:53 AM EDT Patient identifed [...] AM EDT Hem/Onc Treatment Hematology/Oncol ogy Treatment, [place] [address] [place] [address] [place], Chair 3 Hem Onc [address] [address] [facility] [address] 12/23/2023 11:00 AM EST Imaging Radiology [address] [place] [address] 12/31/2023 11:15 AM EST Hospital Encounter ENDO [facility], Endoscopy Room [facility] [address] [place] [address] Clare Rodriguez DO [address] [place] [address] 12/31/2023 11:15 AM EST - 12/31/2023 11:45 AM EST Surgery ENDO [facility], Endoscopy Room [facility] [address] [place] [phone] Clare Rodriguez DO [address] [place] [address] ESOPHAGOGASTRODUODENOSCOPY (EGD), FLEXIBLE, TRANSORAL, DIAGNOSTIC 07/21/2024 8:30 AM EDT Office Visit Family Medicine [address] [place] [address] [place] [address] Scheduled Procedures Name Priority Associated Diagnoses Date/Ti [...] this encounter Medical Devices Implanted Type Area Classroom Teacher Device Identifier Shelf Expiration Date Model / Serial / Lot Device Perm Cntrl [id number] - [id number] Implanted:Qty: 2 on 09/30/2014 by Julio Ramírez MD at OR [facility] N/A: Fallopian Tube [employer] 03/02/2016 [id number] / / [id number] Description:Bilateral tubal documented as of this encounter Visit Diagnoses Diagnosis Malignant neoplasm of upper lobe of right lung (HCC)- Primary Malignant neoplasm of upper lobe, bronchus or lung 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
--- OUTSIDE RECORDS SUMMARY | 2024-02-08 04:29 | External Medical Summary ---
Author Name Unknown Address Unknown Organization K01:LABORATORY [facility] - [address] [place] [address] Laboratory Report Ordering Provider Test Date Status JARED MAGAÑA 12/11/2023 09:15:12 Final Observation Date Value Abnormality Reference (Units ) Status Hepatitis B virus core Ab [Presence] in Serum 12/11/2023 09:15:12 Negative Negative Final Performing Location LABORATORY [facility] - [address] [place] [address]
--- OUTSIDE RECORDS SUMMARY | 2024-02-08 04:29 | External Medical Summary ---
Author Name Unknown Address Unknown Organization K09:[facility] [address] [place] [address] Laboratory Report Ordering Provider Test Date Status JARED MAGAÑA 12/11/2023 09:15:12 Final Observation Date Value Abnormality Reference (Units ) Status WBC, Total 12/11/2023 09:15:12 12.30 Above high normal 4 .00-10.80 (K/uL) Final RBC 12/11/2023 09:15:12 4.41 3.85-5.15 (M/uL) Final Hemoglobin 12/11/2023 09:15:12 15.0 12.0-15.3 (g/dL) Final HCT 12/11/2023 09:15:12 43.5 36.0-45.2 (%) Final MCV 12/11/2023 09:15:12 98.6 81.5-97.5 (fL) Final MCH 12/11/2023 09:15:12 34.0 27.0-34.0 (pg) Final MCHC 12/11/2023 09:15:12 34.5 32.0-36.0 (g/dL) Final RDW 12/11/2023 09:15:12 13.5 11.5-15.5 (%) Final Platelets 12/11/2023 09:15:12 247 140-400 (K /uL) Final MPV 12/11/2023 09:15:12 10.5 6.6-11.1 ( fL) Final Performing Location [facility] [address] [place] [address]
--- OUTSIDE RECORDS SUMMARY | 2024-02-08 04:29 | External Medical Summary ---
Author Name Unknown Address Unknown Organization K01:LABORATORY [facility] - [address] [place] [address] Laboratory Report Ordering Provider Test Date Status JARED MAGAÑA 12/11/2023 09:15:12 Final Observation Date Value Abnormality Reference (Units ) Status TSH 12/11/2023 09:15:12 0.50 0.27-4.20 (uIU/mL) Final Performing Location LABORATORY [facility] - [address] [place] [address]
--- OUTSIDE RECORDS SUMMARY | 2024-02-08 04:29 | External Medical Summary | Summary of Care ---
Author Name Unknown Organization [facility] Address [address] [place] [address] Phone [phone] Care Team Providers Care Automobile Upholsterer Name Role Phone NaiduRenetta philip Primary Care Provider [phone] Reason for Visit * Reason Onset Date Comments Precert Future 12/06/2023 henrry Weeks carbo Encounter Details Date Type Department Care Team (Late st Contact Info) Description 12/06/2023 Telephone Hematology/Oncology Treatment, [place] [address] [place] [address] Yogi Muñoz MD 200 [place] [address] Precert Future (Keytruda alimta, carbo) Allergies No [...] EDT Order received for keytruda, alimta, carbo. [place] plan built. Waiting for auth. Consent signed [...] Department Care Team (Latest Contact Info) Description 12/11/2023 9:00 AM EDT Office Visit Hematology/Oncol [place] Mont[place] [address] [place] [address] [address] Yogi Muñoz MD [address] [place] [address] 12/11/2023 9:30 AM EDT Pt Ed by Nurse Hematology/Oncol [place] [address] [place] [address] Nurse Amparo Hem Onc Román [address] [place] [address] Arrived 12/23/2023 11:00 AM EST Imaging Radiology [address] [place] [address] 12/31/2023 11:15 AM EST Hospital Encounter ENDO [facility], Endoscopy Room [facility] [address] [place] [address] Clare Rodriguez, [address] [place] [address] 12/31/2023 11:15 AM EST - 12/31/2023 11:45 AM EST Surgery ENDO [facility], Endoscopy Room [facility] [address] [place] [phone] Clare Rodriguez DO [address] [place] [address] ESOPHAGOGASTRODUODENOSCOPY (EGD), FLEXIBLE, TRANSORAL, DIAGNOSTIC 07/21/2024 8:30 AM EDT Office Visit Family Medicine [address] [place] [address] [address] [place] [address] Scheduled Orders Name Type Priority Associated Diagnoses [...] 06/25/2022 Colorectal Cancer Screening 07/05/2025 Diabetes Screening 11/26/2026 11/27/2023, 0 11/05/2023, 11/05/2023, Additional history exists Lipid Panel 11/04/2028 11/05/2023, 03/22, 08/29/2022, Additional history exists Alpha-1 Antitrypsin Completed 11/05/2023 HPV (Gardasil) Vaccine Aged Out No lo nger eligible based on patient's age to complete this topic MENINGOCOCCAL (MENACTRA/MENVEO) Aged Out No longer eligible based on patient's age to complete this topic documented as of this encounter Medical Devices Implanted Type Area Case Monitor Device Identifier Shelf Expiration Date Model / Serial / Lot Device Perm Cntrl [id number] - [id number] Implanted:Qty: 2 on 09/30/2014 by Julio Ramírez MD at OR [facility] N/A: Fallopian Tube [employer] 03/02/2016 [id number] / / [id number] Description:Bilateral tubal documented as of this encounter Visit Diagnoses Diagnosis Malignant neoplasm of upper lobe of right lung (HCC)- Primary Malignant neoplasm of upper lobe, bronchus or lung 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
--- OUTSIDE RECORDS SUMMARY | 2024-02-08 04:29 | External Medical Summary | Summary of Care ---
Author Name Unknown Organization [facility] Address [address] [place] [address] Phone [phone] Care Team Providers Care Special Agent Group Insurance Name Role Phone Renetta Naidu DO Primary Care Provider Reason for Visit * Reason Comments Outpatient Testing Encounter Details Date Type Department Care Team (Late st Contact Info) Description 12/11/2023 10:30 AM EDT Laboratory Laboratory [facility] [place] [address] [place] [address] [place] [facility] [place] [address] [place] [address] Malignant neoplasm of upper lobe of right lung (HCC); Metastasis to mediastinal lymph node (HCC); Encounter for screening for viral disease; Bipolar disorder, unspecified (HCC) Allergies No known [...] Description 12/23/2023 11:00 AM EST Imaging Radiology [address] [place] [address] 12/31/2023 11:15 AM EST Hospital Encounter ENDO [facility], Endoscopy Room [facility] [address] [place] [phone] Clare Rodriguez DO [address] [place] [address] 12/31/2023 11:15 AM EST - 12/31/2023 11:45 AM EST Surgery ENDO [facility], Endoscopy Room [facility] [address] [place] [address] Clare Rodriguez DO [address] [place] [address] ESOPHAGOGASTRODUODENOSCOPY (EGD), FLEXIBLE, TRANSORAL, DIAGNOSTIC 07/21/2024 8:30 AM EDT Office Visit Family Medicine [address] [place] [address] Renetta Naidu [address] [place] [address] Pending Results Name Type Priority Associated Diagnoses [...] for viral disease 12/11/2023 9:15 AM EDT CBC WITH WBC DIFFERENTIAL Lab STAT Malignant neoplasm of upper lobe of right lung (HCC) Metastasis to mediastinal lymph node (HCC) 12/11/2023 9:15 AM EDT COMPREHENSIVE METABOLIC PANEL Lab STAT Malignant neoplasm of upper lobe of right lung (HCC) Metastasis to mediastinal lymph node (HCC) 12/11/2023 9:15 AM EDT TSH WITH FREE T4 IF INDICATED Lab STAT Malignant neoplasm of upper lobe of right lung (HCC) Metastasis to mediastinal lymph node (HCC) Bipolar disorder, unspecified (HCC) 12/11/2023 9:15 AM EDT CBC Lab STAT Malignant neoplasm of upper lobe of right lung (HCC) Metastasis to mediastinal lymph node (HCC) 12/11/2023 9:15 AM EDT DIFFERENTIAL, AUTOMATED Lab STAT Malignant neoplasm of upper lobe of right lung (HCC) Metastasis to mediastinal lymph node (HCC) 12/11/2023 9:15 AM EDT Scheduled Procedures Name Priority Associated Diagnoses Date/Ti [...] this encounter Medical Devices Implanted Type Area Cloth Cutter Device Identifier Shelf Expiration Date Model / Serial / Lot Device Perm Cntrl [id number] - [id number] Implanted:Qty: 2 on 09/30/2014 by Julio Ramírez MD at [facility] N/A: Fallopian Tube [employer] 03/02/2016 [id number] / / [id number] Description:Bilateral tubal documented as of this encounter Visit Diagnoses Diagnosis Malignant neoplasm of upper lobe of right lung (HCC) Malignant neoplasm of upper lobe, bronchus or lung 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
--- OUTSIDE RECORDS SUMMARY | 2024-02-08 04:29 | External Medical Summary ---
Author Name Unknown Address Unknown Organization K09:[facility] [address] [place] [address] Laboratory Report Ordering Provider Test Date Status JARED MAGAÑA 12/11/2023 09:15:12 Final Observation Date Value Abnormality Reference (Units ) Status SYNC LEUKOCYTES IN BLOOD BY AUTOMATED COUNT 12/11/2023 09:15:12 12.30 Above high normal 4.00-10.80 (K/uL) Final Segs 12/11/2023 09:15:12 87.6 Above high normal 40.0-75.0 (%) Final Lymphs % 12/11/2023 09:15:12 10.0 Below low normal 18.0-42.0 (%) Final Monos 12/11/2023 09:15:12 2.3 1.0-11.0 (%) Final Eosinophils 12/11/2023 09:15:12 0.0 0.0-6.0 (%) Final Basos 12/11/2023 09:15:12 0.1 0.0-2.0 (%) Final Absolute Segs 12/11/2023 09:15:12 10.78 Above high normal 1.80-7.70 (K/uL) Final Lymphs, absolute 12/11/2023 09:15:12 1.23 1.00-4.80 (K/ul) Final Monos, Abs 12/11/2023 09:15:12 0.28 0.00-1.10 (K/uL) Final Eos, Abs 12/11/2023 09:15:12 0.00 0.00-0.70 (K/uL) Final Basos, Abs 12/11/2023 09:15:12 0.01 0.00-0.20 (K/uL) Final Performing Location [facility] [address] [place] [address]
--- OUTSIDE RECORDS SUMMARY | 2024-02-08 04:29 | External Medical Summary | Summary of Care ---
Author Name Unknown Organization [facility] Address [address] [place] [address] Phone [phone] Care Team Providers Care Social Media Job Titles Name Role Phone NaiduRenetta philip Primary Care Provider [phone] Reason for Visit * Reason Onset Date Comments Precert Future 12/06/2023 henrry Weeks carbo Encounter Details Date Type Department Care Team (Late st Contact Info) Description 12/06/2023 Telephone Hematology/Oncology Treatment, [place] [address] [place] [address] Yogi Muñoz MD 200 [place] [address] Precert Future (Keytruda alimta, carbo) Allergies No [...] EDT Order received for keytruda, alimta, carbo. [place] plan built. Waiting for auth. Consent signed [...] Care Team (Latest Contact Info) Description 12/11/2023 10:30 AM EDT Laboratory Laboratory [place] Mely Saeed [address] [place] [address] [place], Lab Scenery [address] [place] [address] Malignant neoplasm of upper lobe of right lung (HCC); Metastasis to mediastinal lymph node (HCC); Encounter for screening for viral disease; Bipolar disorder, unspecified (HCC) 12/23/2023 11:00 AM EST Imaging Radiology [address] [place] [address] 12/31/2023 11:15 AM EST Hospital Encounter ENDO [facility], Endoscopy Room [facility] [address] [place] [address] Clare Rodriguez DO [address] [place] [address] 12/31/2023 11:15 AM EST - 12/31/2023 11:45 AM EST Surgery ENDO [facility], Endoscopy Room [facility] [address] [place] [address] Clare Rodriguez DO [address] [place] [address] ESOPHAGOGASTRODUODENOSCOPY (EGD), FLEXIBLE, TRANSORAL, DIAGNOSTIC 07/21/2024 8:30 AM EDT Office Visit Family Medicine [address] [place] [address] [address] [place] [address] Pending Results Name Type Priority Associated Diagnoses [...] Cancer Screening 06/30/2017 Pap Smear 06/30/2017 06/30/2014, 04/06/2012, 01/28/2006, Additional history exists Colonoscopy 2021 Fecal [...] this encounter Medical Devices Implanted Type Area Salesforce Business Analyst Device Identifier Shelf Expiration Date Model / Serial / Lot Device Perm Cntrl [id number] - [id number] Implanted:Qty: 2 on 09/30/2014 by Julio Ramírez MD at OR [facility] N/A: Fallopian Tube [employer] 03/02/2016 [id number] / / [id number] Description:Bilateral tubal documented as of this encounter Visit Diagnoses Diagnosis Malignant neoplasm of upper lobe of right lung (HCC)- Primary Malignant neoplasm of upper lobe, bronchus or lung 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 Encounter for screening for viral disease Malignant neoplasm of upper lobe of right lung (HCC) Malignant neoplasm of upper lobe, bronchus or lung 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
--- OUTSIDE RECORDS SUMMARY | 2024-02-08 04:29 | External Medical Summary | Summary of Care ---
Author Name Unknown Organization [facility] Address [address] [facility] [place] [address] Phone [phone] Care Team Providers Care Perl Software Engineer Name Role Phone Naidu Renetta Mcdaniel Primary Care Provider Reason for Visit * Reason Comments Education Keytruda/Carbo/Alimt a Encounter Details Date Type Department Care Team (Latest Contact Info) Description 12/11/2023 9:30 AM EDT Pt Ed by Nurse Hematology/Oncology Rom[facility] [place] [address] [place] [address] Nurse Amparo Hem Onc [facility] 200 [facility] [place] [address] Malignant neoplasm of upper lobe of right lung (HCC)*; Metastasis to mediastinal lymph node (HCC); Bipolar [...] as of this encounter Progress Notes * Mata Zazueta RN - 12/11/2023 10:33 AM EDT Education completed. documented in this encounter Plan of Treatment Upcoming Encounters Date Type Department Care Team (Latest Contact Info) Description 12/13/2023 9:00 AM EDT Hem/Onc Treatment Hematology/Oncol ogy Treatment, [place] [address] [place] [address] [place], Chair 3 Hem Onc [place] [address] [facility] [address] 12/23/2023 11:00 AM EST Imaging Radiology [address] [place] [address] 12/31/2023 11:15 AM EST Hospital Encounter [facility], Endoscopy Room [facility] [address] [place] [phone] Clare Rodriguez DO [address] [place] [address] 12/31/2023 11:15 AM EST - 12/31/2023 11:45 AM EST Surgery ENDO [facility], Endoscopy Room [facility] [address] [place] [phone] Clare Rodriguez [address] [place] [address] ESOPHAGOGASTRODUODENOSCOPY (EGD), FLEXIBLE, TRANSORAL, DIAGNOSTIC 07/21/2024 8:30 AM EDT Office Visit [address] [place] [address] [address]u [address] [place] [address] Pending Results Name Type Priority Associated Diagnoses Date /Time TSH WITH FREE T4 IF INDICATED Lab STAT Malignant neoplasm of upper lobe of right lung (HCC) Metastasis to mediastinal lymph node (HCC) Bipolar disorder, unspecified (HCC) 12/11/2023 9:15 AM EDT Scheduled Orders Name Type Priority Associated Diagnoses Orde r Schedule CBC WITH WBC DIFFERENTIAL Lab STAT Malignant neoplasm of upper lobe of right lung (HCC) Metastasis to mediastinal lymph node (HCC) Every 3 Weeks for 6 Occurrences starting 12/11/2023 until 12/10/2024, 1 completed COMPREHENSIVE METABOLIC PANEL Lab STAT Malignant neoplasm of upper lobe of right lung (HCC) Metastasis to mediastinal lymph node (HCC) Every 3 Weeks for 6 Occurrences starting 12/11/2023 until 12/10/2024, 1 completed TSH WITH FREE T4 IF INDICATED Lab STAT Malignant neoplasm of upper lobe of right lung (HCC) Metastasis to mediastinal lymph node (HCC) Bipolar disorder, unspecified (HCC) Every 3 Weeks for 6 Occurrences starting 12/11/2023 until 12/10/2024 Scheduled Procedures Name Priority Associated Diagnoses Date/Ti [...] this encounter Medical Devices Implanted Type Area Nursing Informatics Analyst Device Identifier Shelf Expiration Date Model / Serial / Lot Device Perm Cntrl [id number] - [id number] Implanted:Qty: 2 on 09/30/2014 by Julio Ramírez MD at OR [facility] N/A: Fallopian Tube [employer] 03/02/2016 [id number] / / [id number] Description:Bilateral tubal documented as of this encounter Results * (ABNORMAL) COMPREHENSIVE METABOLIC PANEL (12/11/2023 9:15 AM EDT) BUN 8 6 - 20 mg/dL 12/11/2023 9:57 AM EDT [facility] 56-02 CREATININE 0.7 0.5 - 1.0 mg/dL 12/11/2023 9:57 AM T [facility] 56- EGFR >90 >=60 mL/min 12/11/2023 9:57 AM [facility] 56- Comment:eGFR is calculated b ased on the CKD-EPI 2020 equation. SODIUM 138 135 - 146 mmol/L 12/11/2023 9:57 AM T [facility] 56- POTASSIUM 3.7 3.5 - 5.1 mmol/L 12/11/2023 9:57 AM [facility] 56- CHLORIDE 102 98 - 107 mmol/L 12/11/2023 9:57 AM [facility] 56- CO2 21(L) 22 - 32 mmol/L 12/11/2023 9:57 AM [facility] 56- ANION GAP 15 7 - 15 mmol/L 12/11/2023 9:57 AM [facility] 56- GLUCOSE 194(H) 70 - 120 mg/dL 12/11/2023 9:57 AM [facility] 56- Albumin 4.0 3.8 - 5.0 g/dL 12/11/2023 9:57 AM [facility] 56- AST 21 10 - 35 U/L 12/11/2023 9:57 AM [facility] 56- Alkaline Phosphatase 116 35 - 130 U/L 12/11/2023 9:57 AM [facility] 56- Bilirubin, Total 0.4 <=1.2 mg/dL 12/11/2023 9:57 AM [facility] 56- CALCIUM 9.9 8.4 - 10.2 mg/dL 12/11/2023 9:57 AM [facility] 56- Protein 7.6 6.0 - 8.3 g/dL 12/11/2023 9:57 AM [facility] 56- ALT <5(L) 10 - 35 U/L 12/11/2023 9:57 AM [facility] 56- Blood Venous blood specimen / Unknown Venipuncture / Unknown 12/11/2023 9:15 AM EDT 12/11/2023 9:15 AM EDT Yogi Muñoz MD LAB BLOOD ORDERABLES [facility] 56-[address] [place] [address] documented in this encounter Visit Diagnoses Diagnosis Malignant neoplasm of upper lobe of right lung (HCC)- Primary Malignant neoplasm of upper lobe, bronchus or lung 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
--- OUTSIDE RECORDS SUMMARY | 2024-02-08 04:29 | External Medical Summary | Summary of Care ---
Author Name Unknown Organization [facility] Address [address] [place] [address] Phone [phone] Care Team Providers Care Java J2Ee Application Developer Name Role Phone NaiduRenetta philip Primary Care Provider Reason for Visit * Reason Onset Date Comments Precert Future 12/06/2023 henrry Weeks carbo Encounter Details Date Type Department Care Team (Late st Contact Info) Description 12/06/2023 Telephone Hematology/Oncology Treatment, [place] [address] [place] [address] Yogi Muñoz MD 200 [place] [address] Precert Future (Keytruda alimta, carbo) Allergies No [...] encounter Miscellaneous Notes * Telephone Encounter - Jad Velez OSA [...] EDT Order received for keytruda, alimta, carbo. [place] plan built. Waiting for auth. Consent signed [...] Description 12/11/2023 10:30 AM EDT Laboratory Laboratory [facility] [place] [address] [place] [phone] [place], Lab Scen[address] [place] [address] Malignant neoplasm of upper lobe of right lung (HCC); Metastasis to mediastinal lymph node (HCC); Encounter for screening for viral disease; Bipolar disorder, unspecified (HCC) 12/13/2023 9:00 AM EDT Hem/Onc Treatment Hematology/Oncol ogy Treatment, [place] [address] [place] [address] [place], Chair 3 Hem Onc Scen[place] [address] [place] [address] 12/23/2023 11:00 AM EST Imaging Radiology [address] [place] [address] 12/31/2023 11:15 AM EST Hospital Encounter [facility]O [facility], Endoscopy Room [facility] [address] [place] [address] Clare Rodriguez DO [address] [place] [address] 12/31/2023 11:15 AM EST - 12/31/2023 11:45 AM EST Surgery ENDO [facility], Endoscopy Room [facility] [address] [place] [phone] Clare Rodriguez DO [address] [place] [address] ESOPHAGOGASTRODUODENOSCOPY (EGD), FLEXIBLE, TRANSORAL, DIAGNOSTIC 07/21/2024 8:30 AM EDT Office Visit Family Medicine [address] [place] [address] Naidu, Renetta Mcdaniel[address] [place] [address] Pending Results Name Type Priority Associated Diagnoses [...] Scheduled Procedures Name Priority Associated Diagnoses Date/Ti nc ESOPHAGOGASTRODUODENOSCOPY ( EGD), FLEXIBLE, TRANSORAL, DIAGNOSTIC Dysphagia [...] this encounter Medical Devices Implanted Type Area Anti Tank Missileman Device Identifier Shelf Expiration Date Model / Serial / Lot Device Perm Cntrl [id number] - [id number] Implanted:Qty: 2 on 09/30/2014 by Julio Ramírez MD at OR [facility] N/A: Fallopian Tube [employer] 03/02/2016 [id number] / / [id number] Description:Bilateral tubal documented as of this encounter [...] unspecified documented in this encounter Care Teams Java J2Ee Application Developer Relationship Specialty Start Date End Date Renetta Naidu DO [address] [place] [address] [place] [id number] PCP - General Internal Medicine 11/12/23 documented as of this encounter
--- OUTSIDE RECORDS SUMMARY | 2024-02-08 04:29 | External Medical Summary | Summary of Care ---
Author Name Unknown Organization [facility] Address [address] [place] [address] Phone [phone] Care Team Providers Care Direct Care Professional Name Role Phone NaiduRenetta philip Primary Care Provider [phone] Reason for Visit * Reason Onset Date Comments Precert Future 12/06/2023 henrry Weeks carbo Encounter Details Date Type Department Care Team (Late st Contact Info) Description 12/06/2023 Telephone Hematology/Oncology Treatment, [place] 200 [place] [address] Yogi Muñoz MD 200 [place] [address] Precert Future (Keytruda alimta, carbo) Allergies No [...] EDT Order received for keytruda, alimta, carbo. [place] plan built. Waiting for auth. Consent signed [...] AM EDT Hem/Onc Treatment Hematology/Oncol ogy Treatment, [place] [address] [place] [phone] [place], Chair 3 Hem Onc Scenery [address] [place] [address] 12/23/2023 11:00 AM EST Imaging Radiology [address] [place] [address] 12/31/2023 11:15 AM EST Hospital Encounter ENDO [facility], Endoscopy Room [facility] [address] [place] [address] Clare Rodriguez DO [address] [place] [address] 12/31/2023 11:15 AM EST - 12/31/2023 11:45 AM EST Surgery ENDO [facility], Endoscopy Room [facility] [address] [place] [phone] Clare Rodriguez DO [address] [place] [address] ESOPHAGOGASTRODUODENOSCOPY (EGD), FLEXIBLE, TRANSORAL, DIAGNOSTIC 07/21/2024 8:30 AM EDT Office Visit Family Medicine [address] [place] [address] Renetta Naidu [address] [place] [address] Pending Results Name Type Priority Associated Diagnoses [...] this encounter Medical Devices Implanted Type Area Automatic Pad Making Machine Operator Device Identifier Shelf Expiration Date Model / Serial / Lot Device Perm Cntrl [id number] - [id number] Implanted:Qty: 2 on 09/30/2014 by Julio Ramírez MD at OR [facility] N/A: Fallopian Tube [employer] 03/02/2016 [id number] / / [id number] Description:Bilateral tubal documented as of this encounter Visit Diagnoses Diagnosis Malignant neoplasm of upper lobe of right lung (HCC)- Primary Malignant neoplasm of upper lobe, bronchus or lung 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
--- OUTSIDE RECORDS SUMMARY | 2024-02-08 04:29 | External Medical Summary | Summary of Care ---
Author Name Unknown Organization [facility] Address [address] [facility] [place] [address] Phone [phone] Care Team Providers Care Pulpwood Dealer Name Role Phone NaiduRenetta philip Primary Care Provider Reason for Visit * Reason Onset Date Comments Test Results 12/11/2023 PET Encounter Details Date Type Department Care Team (Late st Contact Info) Description 12/11/2023 Telephone Pulmonary Medicine, [facility] [address] [facility] [place] [address] Shiv Mann MD [address] [place] [address] Test Results (PET) Allergies No known active allergiesdocumented as of [...] encounter Miscellaneous Notes * Telephone Encounter - Cass Cisse LPN - 12/11/2023 9:17 AM EDT ----- Message from Shiv Mann MD sent at 12/11/2023 7:53 AM EDT ----- PET CT SKULL BASE TO MID-THIGH FDG - 12/09/2023 HISTORY: RUL Mass with Hilar Lymphadenopathy. 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 FDG avid right upper lobe nodule with numerous additional bilateral FDG avid pulmonary nodules and right basilar pleural thickening, consistent with the biopsy proven malignancy. 2. FDG avid right hilar/mediastinal, lower paraesophageal, and gastrohepatic lymphadenopathy as well as liver metastases. Chart note documented in this encounter Plan of Treatment Upcoming Encounters Date Type Department Care Team (Latest Contact Info) Description 12/11/2023 10:30 AM EDT Laboratory Laboratory State Mely Saeed [address] [place] [phone] Ezra Christensen [address] [facility] [place] [address] Malignant neoplasm of upper lobe of right lung (HCC); Metastasis to mediastinal lymph node (HCC); Encounter for screening for viral disease; Bipolar disorder, unspecified (HCC) 12/23/2023 11:00 AM EST Imaging Radiology [address] [place] [address] 12/31/2023 11:15 AM EST Hospital Encounter ENDO [facility], Endoscopy Room [facility] [address] [place] [address] Clare Rodriguez DO [address] [place] [address] 12/31/2023 11:15 AM EST - 12/31/2023 11:45 AM EST Surgery ENDO [facility], Endoscopy Room [facility] [address] [place] [address] Clare Rodriguez DO [address] [place] [address] ESOPHAGOGASTRODUODENOSCOPY (EGD), FLEXIBLE, TRANSORAL, DIAGNOSTIC 07/21/2024 8:30 AM EDT Office Visit Family Medicine [address] [place] [address] [place] [address] Scheduled Procedures Name Priority Associated Diagnoses Date/Ti dc ESOPHAGOGASTRODUODENOSCOPY ( EGD), FLEXIBLE, TRANSORAL, DIAGNOSTIC Dysphagia [...] this encounter Medical Devices Implanted Type Area National Van Owner Operator Device Identifier Shelf Expiration Date Model / Serial / Lot Device Perm Cntrl [id number] - [id number] Implanted:Qty: 2 on 09/30/2014 by Julio Ramírez MD at OR [facility] N/A: Fallopian Tube [employer] 03/02/2016 [id number] / / [id number] Description:Bilateral tubal documented as of this encounter Care Teams Pulpwood Dealer Relationship Specialty Start Date End Date Renetta Naidu DO [address] [place] [address] [place] [address] PCP - General Internal Medicine 11/12/23 documented as of this encounter
--- OUTSIDE RECORDS SUMMARY | 2024-02-08 04:29 | External Medical Summary ---
Author Name Unknown Address Unknown Organization K01:[facility] [address] [place] [address] Laboratory Report Ordering Provider Test Date Status JARED MAGAÑA 12/11/2023 09:15:12 Final Observation Date Value Abnormality Reference (Units ) Status Hep B surface Ag 12/11/2023 09:15:12 Negative Neg ative Final Performing Location [facility] - [address] [place] [address]
--- OUTSIDE RECORDS SUMMARY | 2024-02-08 04:29 | External Medical Summary ---
Author Name Unknown Address Unknown Organization K09:[facility] - [address] [place] [address] Laboratory Report Ordering Provider Test Date Status JARED MAGAÑA 12/11/2023 09:15:12 Final Observation Date Value Abnormality Reference (Units ) Status BUN 12/11/2023 09:15:12 8 6-20 (mg/dL) Final Creatinine 12/11/2023 09:15:12 0.7 0.5-1.0 (mg/dL) Final Glomerular filtration rate/1.73 sq M.predicted [Volume Rate/Area] in Serum, Plasma or Blood by Creatinine-based formula (CKD-EPI) 12/11/2023 09:15:12 >90 >=60 (mL/min) Final eGFR is calculated based on the CKD-EPI 2020 equation. Sodium 12/11/2023 09:15:12 138 135-146 (m mol/L) Final Potassium 12/11/2023 09:15:12 3.7 3.5-5.1 (m mol/L) Final Cl 12/11/2023 09:15:12 102 98-107 (mm ol/L) Final CO2 12/11/2023 09:15:12 21 Below low normal 22- 32 (mmol/L) Final Anion gap 12/11/2023 09:15:12 15 7-15 (mmol /L) Final Glucose 12/11/2023 09:15:12 194 Above high normal 70 -120 (mg/dL) Final Albumin 12/11/2023 09:15:12 4.0 3.8-5.0 (g /dL) Final AST (Aspartate aminotransferase) 12/11/2023 09:15:12 21 10-35 (U/L) Fin al Alk Phos 12/11/2023 09:15:12 116 35-130 (U/ L) Final Bilirubin, Total 12/11/2023 09:15:12 0.4 <=1 .2 (mg/dL) Final Calcium 12/11/2023 09:15:12 9.9 8.4-10.2 ( mg/dL) Final Protein 12/11/2023 09:15:12 7.6 6.0-8.3 (g /dL) Final ALT (Alanine aminotransferase) 12/11/2023 09:15:12 <5 Below low normal 10-35 (U/L) Final Performing Location [facility] [address] [address]
--- OUTSIDE RECORDS SUMMARY | 2024-02-08 04:29 | External Medical Summary ---
Author Name Unknown Address Unknown Organization K01:[facility] [address] [place] [address] Laboratory Report Ordering Provider Test Date Status JARED MAGAÑA 12/11/2023 09:15:12 Final Observation Date Value Abnormality Reference (Units) Status Hepatitis B virus surface Ab [Units/volume] in Serum or Plasma by Immunoassay 12/11/2023 09:15:12 <3.5 (mIU/mL) Final Hepatitis B virus surface Ab [Presence] in Serum by Immunoassay 12/11/2023 09:15:12 Negative Final HEPATITIS B SURFACE ANTIBODY, INTERPRETATION 12/11/2023 09:15:12 NOT immune to Hepatitis B Virus Final POSITIVE: >=11.5 mIU/mL
INDETERMINATE: 8.5-<11.5 mIU/mL
NEGATIVE: <8.5 mIU/mL Performing Location [facility] [facility] [address] [place] [address]
--- OUTSIDE RECORDS SUMMARY | 2024-02-08 04:30 | External Medical Summary | Summary of Care ---
Author Name Unknown Organization [facility] Address [address] [place] [address] Phone [phone] Care Team Providers Care Highway Commissioner Name Role Phone Renetta Naidu Primary Care Provider Reason for Referral * Precert (Within 10 days (routine)) - Authorized Specialty Diagnoses / Procedures Referred By Contac t Referred To Contact Radiology Diagnoses Malignant neoplasm of upper lobe of right lung (HCC) Metastasis to mediastinal lymph node (HCC) Procedures MRI BRAIN W WO CONTRAST Yogi Muñoz MD [address] [place] [address] Referral ID Status Reason Start Date Expiration Date V isits Requested Visits Authorized [id number] Authorized 12/06/2023 999 999 Reason for Visit * Reason Comments NEW PATIENT * Evaluate & Treat - Unlimited Visits (Within 3 days (urgent)) - Authorized Specialty Diagnoses / Procedures Referred By Contcathy t Referred To Contact Hematology/Oncology / Hematology Oncology Diagnoses Non-small cell lung cancer, right (HCC) Shiv Mann MD [address] [facility] [place] [address] Referral ID Status Reason Start Date Expiration Date Visits Requested Visits Authorized [id number] Authorized Specialty Services Required 4 [phone] Encounter Details Date Type Department Care Team (Late st Contact Info) Description 12/06/2023 12:15 PM EDT Office Visit Hematology/Oncology [place] Saeed [address] [facility] [place] [address] Yogi Muñoz MD [address] [facility] [place] [address] Malignant neoplasm of upper lobe of right lung (HCC)*; Metastasis to mediastinal lymph node (HCC) Allergies No known active allergiesdocumented as of this encounter (statuses as of 12/06/2023) Medications Medication Sig Dispensed Refills Start Date [...] as of this encounter (statuses as of 12/06/2023) Active Problems Problem Noted Date Diagnosed Date [...] as of this encounter (statuses as of 12/06/2023) Resolved Problems Problem Noted Date Diagnosed Date Resolved Date Restrictive lung disease 06/15/2022 Depression 05/02/2012 06/15/2022 Generalized anxiety disorder 01/14/2012 06/15/2022 documented as of this encounter (statuses as of 12/06/2023) Immunizations Name Administration Dates Next Due Pneumococcal [...] Sign Reading Time Taken Comments Blood Pressure 143/87 12/06/2023 12:06 PM EDT Pulse 103 12/06/2023 12:06 PM EDT Temperature 36.5 C (97.7 F) 12/06/2023 12:06 PM E DT Respiratory Rate - - Oxygen Saturation 93% 12/06/2023 12:06 PM EDT Inhaled Oxygen Concentration - - Weight 65.8 kg (145 lb 1.6 oz) 12/06/2023 12:06 PM EDT Height 154.9 cm (5' 1") 12/06/2023 12:06 PM EDT Body Mass Index 27.42 12/06/2023 12:06 PM EDT documented in this encounter Progress Notes * Yogi Muñoz MD - 12/06/2023 12:15 PM EDT Hematology/Oncology Outpatient Consult Note Pina Christensen [address] [place] [address] SARAH ONEILL MR # [id number] :1975 48-year-old female, REASON FOR CONSULTATION: Consultation for Sarah Oneill requested by Dr. Henson for evaluation and discussion of treatment options for non-small cell lung cancer involving the right side. 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 CURRENT TREATMENT: [...] She has come the clinic for the initial evaluation, accompanied by her boyfriend, 2 sisters in the office. Currently having some increasing shortness of breath, chronic coughing, some trouble swallowing, slight weight loss, current weight around 145 lb, currently she is not working, ECOG PS 1, no fever, no bleeding from any sites, no abdominal symptoms, no increasing headache. No tingling and numbness of the extremities. REVIEW OF SYSTEMS: GENERAL: Slight weight loss, feeling weak and tired, no fever or chills SKIN: No skin rash, no bruising. HEAD: No new or increasing headache, no dizziness. EYES: No recent change in the vision, no diplopia, EARS: No earache no tinnitus, NOSE: No epistaxis, No nasal discharge or stuffiness, MOUTH: No sores, no dysphagia, no hoarseness of voice, NECK: No lumps, No swelling in thyroid area. No stiffness. PULMONARY: Coughing present, shortness of breath on exertion, which got worse after recent bronchoscopic evaluation no hemoptysis, no chest pain, No wheezing. CARDIOVASCULAR: No anginal chest pain, no PND, no orthopnea. No palpitation, no leg edema. No syncope. GASTROINTESTINAL: No abdominal pain, no nausea or vomiting. No diarrhea, No constipation. No blood in stool or black tarry stools. No abdominal distention. UROLOGIC: No burning urination. No hematuria. MUSCULOSKELETAL: No joint pain, No joint swelling, no muscle weakness. HEMATOLOGIC: No anemia, no bleeding disorder, No bruising. NEUROLOGIC: No seizures, no focal weakness, no speech difficulty, No memory disturbances. No tingling or numbness of the extremities. PSYCHIATRIC: Depression and underlying bipolar disorder. Past Medical History: Diagnosis Date Bipolar 1 [...] performed by Shiv Mann MD at OR [facility] HYSTEROSCOPY W/FALLOPIAN IMPLANTS N/A 09/30/2014 HYSTEROSCOPY SURGICAL BILATERAL FALLOPIAN TUBE performed by Julio Ramírez MD at OR [facility] INFORMATION cyst removal on chest. REMOVE GALLBLADDER Current Outpatient Medications Medication Sig Dispense Refill lamoTRIgine 100 MG Oral Tablet (LaMICtal) TAKE 1 TABLET BY MOUTH 2 TIME(S) PER DAY Lybalvi 20-10 MG Oral Tablet ONE TABLET BY MOUTH AT BEDTIME FOR MOOD Trelegy Ellipta 200-62.5-25 MCG/ACT Aerosol Powder Breath Activated (Xnwtnbcojkd-Gqewjdodqzvl-Gbupqtsboi) Inhale 1 Puff by mouth in the [...] EVERY DAY IN THE MORNING 90Tablet 0 Current Facility-Administered Medications Medication Dose Route [...] file On Exam: LMP 02/01/2021 (Approximate) BP 143/87 (BP Site: Left Arm, BP Position: Sitting, BP Cuff Size: Regular) | Pulse 103 | Temp 36.5 C (97.7 F) (Tympanic) | Ht 1.549 m (5' 1") | Wt 65.8 kg (145 lb 1.6 oz) | LMP 02/01/2021 (Approximate) | SpO2 93% | BMI 27.42 kg/m | BSA 1.68 m Constitutional: Patient is alert, cooperative and [...] paraspinal tenderness. LABS: Blood workup done on 11/27/2023: -BUN/Creat: 7/0.7, Calcium 9.6, normal LFT. IMAGING: She is having PET-CT scan on 12/09/2023. ASSESSMENT AND PLAN: 48-year-old female, a case [...] she has cut down recently. -PD-L1 30%. Overall appears to be metastatic disease but she is having PET-CT scan early next week and would like to review that information. Would like to get brain MRI for initial staging workup. Would like to get NGS checkup. She has encasement and lumen narrowing of the right mainstem bronchus and I am concerned about rapid disease progression and would like to consider starting treatment soon. Reviewed with them regarding information outlined on [facility] website I would consider for Alimta, carboplatin and Keytruda combination chemotherapy, reviewed with them regarding treatment side effect profile she is in agreement for that. I would like to see her in the clinic next week on 12/11/2023, will review with the PET-CT scan findings and proceed with the treatment. Will not have NGS checkup result before we proceed for the chemotherapy and so will hold Keytruda during the 1st cycle and then we can add during the 2nd cycle after NGS checkup result. She will receive Vitamin B12 injection today and then every 9 weekly She will take folic acid every day. She will take Compazine Zofran for the symptomatic treatment nausea and vomiting while on chemotherapy treatment Thanks for the consultation Dr. Yogi Muñoz Hem/Onc (This note was completed using the dictation program Fluency Direct. As such, there may be misspellings word substitutions, or other variations that should not change the essence of the clinical content of this encounter note. If there is need for further clarification, please direct questions to the provider listed above.) documented in this encounter Nursing Notes * Talisha Tian MED ASSIST - 12/06/2023 12:07 PM EDT Patient identifed by name and birthdate Do you have any concerns about pain management for today's visit? Yes. Patient instructed to discuss pain concerns with provider during the visit today Living Will or Advance Directive for Health Care as noted on the problem list. MyClixtrisinger is a way you can talk to your provider on line through e-mail. Would you like to sign up? I can activate it for you? ALREADY ACTIVE Filed Vitals: 12/06/23 1206 BP: 143/87 Pulse: 103 Temp: 36.5 C (97.7 F) TempSrc: Tympanic SpO2: 93% Weight: 65.8 kg (145 lb 1.6 oz) Height: 1.549 m (5' 1") Patient was instructed to not get up on the exam table/exam chair until directed and assisted by their provider; patient is to remain seated in the chair/ wheelchair/ exam table/ exam chair for fall prevention and safety reasons. Patient is aware to have assistance to step down off exam table/exam chair with personnel. Patient voiced full comprehension of instructions. Pt reports that she is having trouble breathing. Pt states it is hindering her daily life at a level of 8 documented in this encounter Plan of Treatment Upcoming Encounters Date Type Department Care Team (Latest Contact Info) Description 12/09/2023 8:45 AM EDT Imaging Radiology [facility] [address] [facility] 132 [facility] [place] [address] 12/09/2023 3:20 PM EDT Office Visit [facility], [facility] [address] [facility] [place] [address] Shiv Mann MD [address] [facility] [place] [address] 12/11/2023 9:00 AM EDT Office Visit Hematology/Oncol ogy Román Christensen [place] [address] [place] [address] Yogi Muñoz MD [address] [place] [address] 12/11/2023 9:30 AM EDT Pt Ed by Nurse Hematology/Oncol ogy [facility] [employer] [address] [place] [phone] Amparo, Nurse Hem Onc [address] [place] [address] 12/23/2023 11:00 AM EST Imaging Radiology [address] [place] [address] 12/31/2023 11:15 AM EST Hospital Encounter ENDO [facility], Endoscopy Room [facility] [address] [place] [address] Clare Rodriguez DO [address] [place] [address] 12/31/2023 11:15 AM EST - 12/31/2023 11:45 AM EST Surgery ENDO [facility], Endoscopy Room [facility] [address] [place] [phone] Clare Rodriguez DO [address] [place] [address] ESOPHAGOGASTRODUODENOSCOPY (EGD), FLEXIBLE, TRANSORAL, DIAGNOSTIC 07/21/2024 8:30 AM EDT Office Visit Family Medicine [address] [place] [phone] Renetta [address] [place] [address] Scheduled Orders Name Type Priority Associated Diagnoses Orde r Schedule MRI BRAIN W WO CONTRAST Medical Imaging Routine Malignant neoplasm of upper lobe of right lung (HCC) Metastasis to mediastinal lymph node (HCC) Ordered: 12/06/2023 Scheduled Procedures Name Priority Associated Diagnoses Date/Ti [...] this encounter Medical Devices Implanted Type Area Hand Etcher Device Identifier Shelf Expiration Date Model / Serial / Lot Device Perm Cntrl [id number] - [id number] Implanted:Qty: 2 on 09/30/2014 by Julio Ramírez MD at OR [facility] N/A: Fallopian Tube [employer] 03/02/2016 [id number] / / [id number] Description:Bilateral tubal documented as of this encounter Visit Diagnoses Diagnosis Malignant neoplasm of upper lobe of right lung (HCC)- Primary Malignant neoplasm of upper lobe, bronchus or lung 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
--- OUTSIDE RECORDS SUMMARY | 2024-02-08 04:30 | External Medical Summary | Summary of Care ---
Author Name Unknown Organization [facility] Address [address] [place] [address] Phone [phone] Care Team Providers Care Phototypesetter Operator Name Role Phone NaiduRenetta philip Primary Care Provider [phone] Reason for Visit * Reason Onset Date Comments Precert Future 12/06/2023 henrry Weeks carbo Encounter Details Date Type Department Care Team (Late st Contact Info) Description 12/06/2023 Telephone Hematology/Oncology Treatment, [place] [address] [place] [address] Yogi Muñoz MD [address] [place] [address] Precert Future (Keytruda, alimta, carbo) Allergies No known active allergiesdocumented [...] EDT Order received for keytruda, alimta, carbo. [place] plan built. Waiting for auth. Consent signed [...] Description 12/09/2023 8:45 AM EDT Imaging Radiology [facility] 1st [facility] 132 [facility] [place] [address] 12/09/2023 3:20 PM EDT Office Visit Pulmonary Medicine, [facility] [address] [facility] [place] [address] Shiv Mann MD [address] [facility] [place] [address] 12/11/2023 9:00 AM EDT Office Visit Hematology/Oncol blanca Christensen [place] [address] [place] [phone] Yogi Muñoz MD [address] [place] [address] 12/11/2023 9:30 AM EDT Pt Ed by Nurse Hematology/Oncol [place] Mely [place] [address] [place] [phone] Nurse Amparo Hem Onc [address] [place] [address] 12/23/2023 11:00 AM EST Imaging Radiology [address] [place] [address] 12/31/2023 11:15 AM EST Hospital Encounter ENDO [facility], Endoscopy Room [facility] [address] [place], [place] [phone] Clare Rodriguez, [address] [place] [address] 12/31/2023 11:15 AM EST - 12/31/2023 11:45 AM EST Surgery ENDO [facility], Endoscopy Room [facility] [address] [place] [address] Clare Rodriguez DO [address] [place] [address] ESOPHAGOGASTRODUODENOSCOPY (EGD), FLEXIBLE, TRANSORAL, DIAGNOSTIC 07/21/2024 8:30 AM EDT Office Visit Family Medicine [address] [place] [phone] Renetta Naid[address] [place] [address] Scheduled Orders Name Type Priority Associated Diagnoses [...] this encounter Medical Devices Implanted Type Area Lens Inspector Device Identifier Shelf Expiration Date Model / Serial / Lot Device Perm Cntrl [id number] - [id number] Implanted:Qty: 2 on 09/30/2014 by Julio Ramírez MD at OR [facility] N/A: Fallopian Tube [employer] 03/02/2016 [id number] / / [id number] Description:Bilateral tubal documented as of this encounter Visit Diagnoses Diagnosis Malignant neoplasm of upper lobe of right lung (HCC)- Primary Malignant neoplasm of upper lobe, bronchus or lung 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
--- OUTSIDE RECORDS SUMMARY | 2024-02-08 04:30 | External Medical Summary | Summary of Care ---
Author Name Unknown Organization [facility] Address [address] [facility] [address] Phone [phone] Care Team Providers Care Weld Lay Out Worker Name Role Phone Naidu Renetta Mcdaniel Primary Care Provider Encounter Details Date Type Department Care Team (Late st Contact Info) Description 12/06/2023 Orders Only Hematology/Oncology Ruma Amparo [place] 200 [facility] [place] [address] Yogi Muñoz MD 200 [facility] [address] Allergies No known active allergiesdocumented as of [...] Description 12/09/2023 8:45 AM EDT Imaging Radiology [address] 132 [facility] [place] [address] 12/09/2023 3:20 PM EDT Office Visit Pulmonary Medicine, [facility] 132 [facility] [place] [address] Shiv Mann MD [address] [place] [address] 12/11/2023 9:00 AM EDT Office Visit Hematology/Oncol blanca Christensen [place] [address] [address] Yogi Muñoz MD [address] [place] [address] 12/11/2023 9:30 AM EDT Pt Ed by Nurse Hematology/Oncol [place] Mely Mont[place] [address] [address] Nurse Amparo Hem Onc Román [address] [address] 12/23/2023 11:00 AM EST Imaging Radiology [address] [place] [address] 12/31/2023 11:15 AM EST Hospital Encounter ENDO [facility], Endoscopy Room [facility] [address] [place] [address] Clare Rodriguez DO [address] [place] [address] 12/31/2023 11:15 AM EST - 12/31/2023 11:45 AM EST Surgery ENDO [facility], Endoscopy Room [facility] [address] [place] [address] Clare Rodriguez DO [address] [place] [address] ESOPHAGOGASTRODUODENOSCOPY (EGD), FLEXIBLE, TRANSORAL, DIAGNOSTIC 07/21/2024 8:30 AM EDT Office Visit Family Medicine [address] [place] [address] [address]etta [address]u [address] [place] [address] Scheduled Procedures Name Priority Associated Diagnoses Date/Ti [...] Additional history exists Lipid Panel 11/04/2028 11/05/2023, 0208/2023, 08/29/2022, Additional history exists Alpha-1 Antitrypsin Completed 11/05/2023 HPV (Gardasil) Vaccine Aged Out No lo nger eligible based on patient's age to complete this topic MENINGOCOCCAL (MENACTRA/MENVEO) Aged Out No longer eligible based on patient's age to complete this topic documented as of this encounter Medical Devices Implanted Type Area Toll Gate Tender Device Identifier Shelf Expiration Date Model / Serial / Lot Device Perm Cntrl [id number] - [id number] Implanted:Qty: 2 on 09/30/2014 by Julio Ramírez MD at OR [facility] N/A: Fallopian Tube [employer] 03/02/2016 [id number] / / [id number] Description:Bilateral tubal documented as of this encounter Care Teams Weld Lay Out Worker Relationship Specialty Start Date End Date Renetta Naidu DO [address] [place] [address] [place] [phone] PCP - General Internal Medicine 11/12/23 documented as of this encounter
--- OUTSIDE RECORDS SUMMARY | 2024-02-08 04:30 | External Medical Summary | Summary of Care ---
Author Name Unknown Organization [facility] Address [address] [place] [address] Phone [phone] Care Team Providers Care Fur Stylist Name Role Phone Renetta Naidu Primary Care Provider [phone] Reason for Referral * Precert (Within 10 days (routine)) - Authorized Specialty Diagnoses / Procedures Referred By Contac t Referred To Contact Radiology Diagnoses Malignant neoplasm of upper lobe of right lung (HCC) Metastasis to mediastinal lymph node (HCC) Procedures MRI BRAIN W WO CONTRAST Yogi Muñoz MD 200 [place] [address] Referral ID Status Reason Start Date Expiration Date V isits Requested Visits Authorized [id number] Authorized 12/06/2023 999 999 Reason for Visit * Reason Comments NEW PATIENT * Evaluate & Treat - Unlimited Visits (Within 3 days (urgent)) - Authorized Specialty Diagnoses / Procedures Referred By Contcathy t Referred To Contact Hematology/Oncology / Hematology Oncology Diagnoses Non-small cell lung cancer, right (HCC) Shiv Mann MD [address] [facility] [place] [address] Referral ID Status Reason Start Date Expiration Date Visits Requested Visits Authorized [id number] Authorized Specialty Services Required 4 [phone] Encounter Details Date Type Department Care Team (Late st Contact Info) Description 12/06/2023 12:15 PM EDT Office Visit Hematology/Oncology [place] 200 [facility] [place] [address] Yogi Muñoz MD 200 [facility] [place] [address] Malignant neoplasm of upper lobe of right [...] Consult Note Pina Christensen 200 Román Maldonado [facility] [place] [address] SARAH ONEILL MR # [id number] :1975 48-year-old female, REASON FOR CONSULTATION: Consultation [...] by Shiv Mann MD at OR [facility] HYSTEROSCOPY W/FALLOPIAN IMPLANTS N/A 09/30/2014 HYSTEROSCOPY SURGICAL BILATERAL FALLOPIAN TUBE performed by Julio Ramírez MD at OR [facility] INFORMATION cyst removal on chest. REMOVE GALLBLADDER Current Outpatient Medications Medication Sig Dispense Refill lamoTRIgine 100 MG Oral Tablet (LaMICtal) TAKE 1 TABLET BY MOUTH 2 TIME(S) PER DAY Lybalvi 20-10 MG Oral Tablet ONE TABLET BY MOUTH AT BEDTIME FOR MOOD Trelegy Ellipta 200-62.5-25 MCG/ACT Aerosol Powder Breath Activated (Cetghhhwkvq-Szsrawgqujbr-Vremvamnbw) Inhale 1 Puff by mouth in the [...] Care as noted on the problem list. [facility] is a way you can talk to [...] Description 12/09/2023 8:45 AM EDT Imaging Radiology [facility] [address] [facility] 132 [facility] [place] [address] 12/09/2023 3:20 PM EDT Office Visit Pulmonary Medicine, [facility] 132 [facility] [place] [address] Shiv Mann MD [address] [facility] [place] [address] 12/11/2023 9:00 AM EDT Office Visit Hematology/Oncol ogy Román Christensen [place] [address] [place] [address] Yogi Muñoz MD [address] [place] [address] 12/11/2023 9:30 AM EDT Pt Ed by Nurse Hematology/Oncol ogy [employer] [address] [place] [phone] Amparo, Nurse Hem Onc [address] [place] [address] 12/23/2023 11:00 AM EST Imaging Radiology [address] [place] [address] 12/31/2023 11:15 AM EST Hospital Encounter ENDO [facility], Endoscopy Room [facility] [address] [place] [address] Clare Rodriguez DO [address] [place] [address] 12/31/2023 11:15 AM EST - 12/31/2023 11:45 AM EST Surgery ENDO [facility], Endoscopy Room [facility] [address] [place] [address] Clare Rodrgiuez DO [address] [place] [address] ESOPHAGOGASTRODUODENOSCOPY (EGD), FLEXIBLE, TRANSORAL, DIAGNOSTIC 07/21/2024 8:30 AM EDT Office Visit Family Medicine [address] [place] [phone] Renetta Naid[address] [place] [address] Scheduled Orders Name Type Priority Associated Diagnoses [...] this encounter Medical Devices Implanted Type Area Accounts Executive Device Identifier Shelf Expiration Date Model / Serial / Lot Device Perm Cntrl [id number] - [id number] Implanted:Qty: 2 on 09/30/2014 by Julio Ramírez MD at OR [facility] N/A: Fallopian Tube [employer] 03/02/2016 [id number] / / [id number] Description:Bilateral tubal documented as of this encounter Visit Diagnoses Diagnosis Malignant neoplasm of upper lobe of right lung (HCC)- Primary Malignant neoplasm of upper lobe, bronchus or lung 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
--- OUTSIDE RECORDS SUMMARY | 2024-02-08 04:30 | External Medical Summary | Summary of Care ---
Author Name Unknown Organization [facility] Address [address] [place] [address] Phone [phone] Care Team Providers Care Director River Restoration Name Role Phone Renetta Naidu DO Primary Care Provider [phone] Reason for Visit * Reason Onset Date Comments Appointment 11/12/2023 Upper endoscopy Encounter Details Date Type Department Care Team (Late st Contact Info) Description 11/12/2023 Telephone Family Medicine [address] [phone] Paola Chen PA-C [address] [place] [address] [place] [address] Appointment (Upper endoscopy ) Allergies No known active allergiesdocumented as of this encounter (statuses as of 12/05/2023) Medications Medication Sig Dispensed Refills Start Date [...] 11/12/2023 Active predniSONE 20 MG Oral Tablet (Deltasone)Indic ations:Acute pain of right shoulder 2 tablets daily for 5 days then 1 tablet daily 15 Tablet 11/12/2023 Active Rosuvastatin Calcium 10 MG Oral Tablet (Crestor)Indicat ions:Dyslipidemi a, goal LDL below 160 TAKE 1 TABLET BY MOUTH EVERY DAY IN THE MORNING 90 Tablet 1 04/29/2023 4 Discontinued Fluticasone-Umec lidin-Vilant 100-62.5-25 MCG/ACT Aerosol Powder Breath Activated (Trelegy Ellipta) Inhale 1 Puff by mouth in the morning. 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 Overview: PFTs reflect more of a restrictive pattern Tobacco use disorder 06/15/2022 documented as of this encounter (statuses as of 12/05/2023) Resolved Problems Problem Noted Date Diagnosed Date Resolved Date Restrictive lung disease 06/15/2022 Depression 05/02/2012 06/15/2022 Generalized anxiety disorder 01/14/2012 06/15/2022 documented as of this encounter (statuses as of 12/05/2023) Immunizations Name Administration Dates Next Due Pneumococcal Polysaccharide PPV23 (Pneumovax) Seasonal Influenza Vac., MDV, IM, 0.5 mL (Fluzon e) 12/14/2011 TDAP (age 10 and older)(Boostrix) 06/12/2012 documented as of this encounter Social History Tobacco Use Types Packs/Day Years Used Date Smoking Tobacco: Every Day Cigarettes 1 31 Smokeless Tobacco: Never Comments:1 1/2 ppd. [...] encounter Miscellaneous Notes * Telephone Encounter - Tracy Bocanegra OSA - 11/13/2023 2:28 PM EDT [place] 11/13/2023 2:28 PM * Telephone Encounter - Radha Valdez OSA - 11/12/2023 11:38 AM EDT Sarah torres scheduled for upper endoscopy for: Dysphagia, unspecified type [R13.10] - Primary documented in this encounter Plan of Treatment Upcoming Encounters Date Type Department Care Team (Latest Contact Info) Description 12/06/2023 12:15 PM EDT Office Visit Hematology/Oncol blanca Christensen [place] [address] [place] [address] Yogi Muñoz MD [address] [place] [address] 12/09/2023 8:45 AM EDT Imaging Radiology [facility] 1st [facility] [address] [place] [address] 12/09/2023 3:20 PM EDT Office Visit Pulmonary Medicine, [facility] [address] [place] [address] Shiv Mann MD [address] [facility] [address] 12/31/2023 11:15 AM EST Hospital Encounter ENDO [facility], Endoscopy Room [facility] [address] [place] [address] Clare Rodriguez DO [address] [place] [address] 12/31/2023 11:15 AM EST - 12/31/2023 11:45 AM EST Surgery ENDO [facility], Endoscopy Room [facility] [address] [place] [address] MichaelClare Peggy, [facility] [place] [address] ESOPHAGOGASTRODUODENOSCOPY (EGD), FLEXIBLE, TRANSORAL, DIAGNOSTIC 07/21/2024 8:30 AM EDT Office Visit [address] [place] [phone] Renetta Naidu, [address] [place] [address] Scheduled Procedures Name Priority Associated Diagnoses Date/Ti me ESOPHAGOGASTRODUODENOSCOPY ( EGD), FLEXIBLE, TRANSORAL, DIAGNOSTIC Dysphagia 12/31/2023 11:15 AM EST Health Maintenance Due Date Last Done Comments Hepatitis B Vaccine (1 of 3 - [...] Tdap) 06/12/2022 06/12/2012 Mammogram 08/01/2023 07/31/2022, 06/18/2022 COVID-19 Vaccine ( - season) 2023 Influenza Vaccine (FLU shot) (#1) 2023 12/14/2011 [...] this encounter Medical Devices Implanted Type Area Racquet Maker Device Identifier Shelf Expiration Date Model / Serial / Lot Device Perm Cntrl [id number] - [id number] Implanted:Qty: 2 on 09/30/2014 by Julio Ramírez MD at OR [facility] N/A: Fallopian Tube [employer] 03/02/2016 [id number] / / [id number] Description:Bilateral tubal documented as of this encounter Care Teams Director River Restoration Relationship Specialty Start Date End Date Renetta Naidu DO [address] [place] [address] [place] [phone] PCP - General Internal Medicine 11/12/23 documented as of this encounter
--- OUTSIDE RECORDS SUMMARY | 2024-02-08 04:30 | External Medical Summary | Summary of Care ---
Author Name Unknown Organization [facility] Address [address] [place] [address] Phone [phone] Care Team Providers Care Medical Economics Consultant Name Role Phone NaiduRenetta philip Primary Care Provider Reason for Visit * Reason Onset Date Comments Referral 12/02/2023 Encounter Details Date Type Department Care Team (Late st Contact Info) Description 12/02/2023 Telephone Radiation Oncology, [facility] [address] [place] [address] Services, Scheduling [address] [place] [address] Referral Allergies No known active allergiesdocumented as of this encounter (statuses as of 12/03/2023) Medications Medication Sig Dispensed Refills Start Date [...] as of this encounter (statuses as of 12/03/2023) Active Problems Problem Noted Date Diagnosed Date Mass of right lung 11/28/2023 Bipolar 1 disorder 06/15/2022 Overview: Follows with psychiatry - at [facility] Hyperlipidemia with target LDL less than 100 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 Overview: PFTs reflect more of a restrictive pattern Tobacco use disorder 06/15/2022 documented as of this encounter (statuses as of 12/03/2023) Resolved Problems Problem Noted Date Diagnosed Date Resolved Date Restrictive lung disease 06/15/2022 Depression 05/02/2012 06/15/2022 Generalized anxiety disorder 01/14/2012 06/15/2022 documented as of this encounter (statuses as of 12/03/2023) Immunizations Name Administration Dates Next Due Pneumococcal [...] encounter Miscellaneous Notes * Telephone Encounter - Shiv Mann MD - 12/03/2023 7:59 AM EDT New referral has been placed for [facility] Radiation Oncology. * Telephone Encounter - Lesley Suh OSA - 12/02/2023 6:15 PM EDT We received a referral from you for Sarah to be seen in Radiation Oncology. I recently spoke with her to schedule her at our [place] office. She did decline and ask for thisreferral to be sent to [facility] in [place]. Their office to much closer for her. Please send [facility] this referral at you earliest convenience. Thank you! documented in this encounter Plan of Treatment Upcoming Encounters Date Type Department Care Team (Late st Contact Info) Description 12/09/2023 8:45 AM EDT [facility] 132 [facility] [place] [address] 12/09/2023 3:20 PM EDT Office Visit Pulmonary Medicine, [facility] 132 [facility] [place] [address] Shiv Mann MD [address] [facility] [place] [address] 07/21/2024 8:30 AM EDT Office Visit Family Medicine [address] [phone] [place] [address] Health Maintenance Due Date Last Done Comments [...] Mammogram 08/01/2023 07/31/2022, 06/18/2022 COVID-19 Vaccine ( season) 2023 Influenza Vaccine (FLU shot) (#1) [...] this encounter Medical Devices Implanted Type Area Harness Fitter Device Identifier Shelf Expiration Date Model / Serial / Lot Device Perm Cntrl [id number] - [id number] Implanted:Qty: 2 on 09/30/2014 by Julio Ramírez MD at OR [facility] N/A: Fallopian Tube [employer] 03/02/2016 [id number] / / [id number] Description:Bilateral tubal documented as of this encounter Care Teams Medical Economics Consultant Relationship Specialty Start Date End Date Renetta Naidu DO [address] [place] [address] [place] [phone] PCP - General Internal Medicine 11/12/23 documented as of this encounter
--- OUTSIDE RECORDS SUMMARY | 2024-02-08 04:30 | External Medical Summary | Summary of Care ---
Author Name Unknown Organization [facility] Address [address] [place] [address] Phone [phone] Care Team Providers Care Chief Commercial Officer Name Role Phone Elysia Renetta Mcdaniel Primary Care Provider Reason for Visit * Reason Onset Date Comments Medication Refill 12/06/2023 Encounter Details Date Type Department Care Team (Late st Contact Info) Description 12/06/2023 Refill Hematology/Oncology Treatment, [place] 200 [place] [address] Gómez Muñoz MD 200 [place] [address] Malignant neoplasm of upper lobe of right [...] Encounter - Vivian Booker RN - 12/06/2023 2:55 PM EDTSigned Prescriptions: Disp Refills Folic Acid 1 MG Oral Tablet 30 Tab*5 Sig: Take 1 Tablet by mouthin the morning.Authorizing Provider: GÓMEZ MUÑOZ dexAMETHasone 4 MG Oral Tablet (Decadron) 36 Tab*0 Sig: Take 4mg twice a day x3 days starting the day before chemotherapyAuthorizing Provider: GÓMEZ MUÑOZ Ondansetron HCl 8 MG Oral Tablet (Zofran) 30 Tab*2 Sig: Take1 Tablet by mouth every 8 hours as needed for Nausea.Authorizing Provider: GÓMEZ MUÑOZ Prochlorperazine Maleate 10 MG Oral Tablet*30 Tab*2 Sig: Take 1 Tablet by mouth every 6 hours as needed for Nausea.Authorizing Provider: GÓMEZ MUÑOZ * Telephone Encounter - Gómez Muñoz MD - 12/06/2023 2:49 PM EDT E-prescribed Gómez Muñoz MD Hem/Onc * Telephone Encounter - Vivian Booker RN - 12/06/2023 1:15 PM EDT Pended folic acid, decadron, zofran, compazine. documented in this encounter Plan of Treatment Upcoming Encounters Date Type Department Care Team (Latest Contact Info) Description 12/09/2023 8:45 AM EDT Imaging [facility]st [facility] 132 [facility] [place] [address] 12/09/2023 3:20 PM EDT Office Visit Pulmonary Medicine, [facility] 132 [facility] [place] [address] Shiv Mann MD [address] [place] [address] 12/11/2023 9:00 AM EDT Office Visit Hematology/Oncol blanca Christensen [place] [address] [place] [phone] Gómez Muñoz MD [address] [place] [address] 12/11/2023 9:30 AM EDT Pt Ed by Nurse Hematology/Oncol blanca Christensen [place] [address] [place] [phone] Amparo Nurse Hem Onc [place] [address] [place] [address] 12/23/2023 11:00 AM EST Imaging Radiology [address] [place] [address] 12/31/2023 11:15 AM EST Hospital Encounter ENDO [facility], Endoscopy Room [facility] [address] [place] [phone] Clare Rodriguez, [address] [place] [address] 12/31/2023 11:15 AM EST - 12/31/2023 11:45 AM EST Surgery ENDO [facility], Endoscopy Room [facility] [address] [place] [address] Clare Rodriguez DO [address] [place] [address] ESOPHAGOGASTRODUODENOSCOPY (EGD), FLEXIBLE, TRANSORAL, DIAGNOSTIC 07/21/2024 8:30 AM EDT Office Visit Family [address] [place] [phone] Renetta Naid[address] [place] [address] Scheduled Procedures Name Priority Associated Diagnoses Date/Ti [...] Additional history exists Lipid Panel 11/04/2028 11/05/2023, 02/08/2023, 08/29/2022, Additional history exists Alpha-1 Antitrypsin Completed 11/05/2023 HPV (Gardasil) Vaccine Aged Out No lo nger eligible based on patient's age to complete this topic MENINGOCOCCAL (MENACTRA/MENVEO) Aged Out No longer eligible based on patient's age to complete this topic documented as of this encounter Medical Devices Implanted Type Area Fashion Model Device Identifier Shelf Expiration Date Model / Serial / Lot Device Perm Cntrl [id number] - [id number] Implanted:Qty: 2 on 09/30/2014 by Julio Ramírez MD at OR [facility] N/A: Fallopian Tube [employer] 03/02/2016 [id number] / / [id number] Description:Bilateral tubal documented as of this encounter Visit Diagnoses Diagnosis Malignant neoplasm of upper lobe of right lung (HCC)- Primary Malignant neoplasm of upper lobe, bronchus or lung 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
--- OUTSIDE RECORDS SUMMARY | 2024-02-08 04:30 | External Medical Summary | Summary of Care ---
Author Name Unknown Organization [facility] Address [address] [facility] [place] [address] Phone [phone] Care Team Providers Care Manager Of Global Name Role Phone Renetta Naidu Primary Care Provider [phone] Reason for Visit * Reason Onset Date Comments Test Results 12/03/2023 EBUS Encounter Details Date Type Department Care Team (Late st Contact Info) Description 12/03/2023 Telephone Pulmonary Medicine, [facility] 132 [facility] [place] [address] Shiv Mann MD [address] [facility] [place] [id number] Test Results (EBUS) Allergies No known active allergiesdocumented as of [...] Telephone Encounter - Cass Cisse LPN - 12/03/2023 9:30 AM EDT ----- Message from Shiv Mann MD sent at 12/03/2023 7:51 AM EDT ----- Lung, Right main stem, EBUS transbronchial fine needle aspiration: Adequacy: Satisfactory for evaluation. Category: Malignant. Interpretation: Non-small cell carcinoma with neuroendocrine differentiation, consistent with largecell neuroendocrine carcinoma. Patient is aware regarding results Medical Oncology and Radiation Oncology referrals have been placed Chart note documented in this encounter Plan of Treatment Upcoming Encounters Date Type Department Care Team (Late st Contact Info) Description 12/09/2023 8:45 AM EDT Imaging Radiology [facility] [address] [place] [address] 12/09/2023 3:20 PM EDT Office Visit Pulmonary Medicine, [address] [place] [address] Shiv Mann MD [address] [place] [address] 07/21/2024 8:30 AM EDT Office Visit Family Medicine [address] [place] [phone] [address] [place] [address] Health Maintenance Due Date Last Done Comments [...] 06/12/2012 Mammogram 08/01/2023 07/31/2022, 06/18/2022 COVID-19 Vaccine (1 - 2023- season) 2023 Influenza Vaccine (FLU shot) (#1) [...] this encounter Medical Devices Implanted Type Area Poultryman Device Identifier Shelf Expiration Date Model / Serial / Lot Device Perm Cntrl [id number] - [id number] Implanted:Qty: 2 on 09/30/2014 by Julio Ramírez MD at OR [facility] N/A: Fallopian Tube [employer] 03/02/2016 [id number] / / [id number] Description:Bilateral tubal documented as of this encounter Care Teams Manager Of Global Relationship Specialty Start Date End Date Renetta Naidu DO [address] [place] [address] [place] [id number] PCP - General Internal Medicine 11/12/23 documented as of this encounter
--- OUTSIDE RECORDS SUMMARY | 2024-02-08 04:30 | External Medical Summary | Summary of Care ---
Author Name Unknown Organization [facility] Address [address] [place] [address] Phone [phone] Care Team Providers Care Medical Assistant Instructor Name Role Phone NaiduRenetta philip Primary Care Provider Reason for Visit * Reason Onset Date Comments Precert Future 12/06/2023 henrry Weeks carbo Encounter Details Date Type Department Care Team (Late st Contact Info) Description 12/06/2023 Telephone Hematology/Oncology Treatment, [place] [address] [place] [address] Yogi Muñoz MD [address] [place] [address] Precert Future (Keytruda, alimta, carbo) Allergies No [...] EDT Order received for keytruda, alimta, carbo. [place] plan built. Waiting for auth. Consent signed 12/06/23. Patient will return 12/11/23 to review PET from 12/[address] Muñoz and have nurse education. He would like her to start chemotherapy 12/13/23 potentially. Brain MRI 12/23/23. Will need hep B labs. B12 injection given 12/06/23. Prescriptions (folic, dex, zofran, compazine) sent to pharmacy. documented in this encounter Plan of Treatment Upcoming Encounters Date Type Department Care Team (Latest Contact Info) Description 12/09/2023 8:45 AM EDT Imaging Radiology [facility] 1st [facility] 132 [facility] [place] [address] 12/09/2023 3:20 PM EDT Office Visit Pulmonary Medicine, [address] [place] [address] Shiv Mann MD [address] [facility] [place] [phone] 12/11/2023 9:00 AM EDT Office Visit Hematology/Oncol blanca Christensen [place] [address] [place] [phone] Yogi Muñoz MD [address] [place] [address] 12/11/2023 9:30 AM EDT Pt Ed by Nurse Hematology/Oncol blanca Christensen [place] [address] [place] [phone] Nurse Amparo Hem Onc [facility] [address] [place] [address] 12/23/2023 11:00 AM EST Imaging Radiology [address] [place] [address] 12/31/2023 11:15 AM EST Hospital Encounter ENDO [facility], Endoscopy Room [facility] [address] [place], [place] [phone] Clare Rodriguez, DO [address] [place], [place] [address] 12/31/2023 11:15 AM EST - 12/31/2023 11:45 AM EST Surgery ENDO [facility], Endoscopy Room [facility] [address] [place], [place] [address] Clare Rodriguez, DO [address] [place] [address] ESOPHAGOGASTRODUODENOSCOPY (EGD), FLEXIBLE, TRANSORAL, DIAGNOSTIC 07/21/2024 8:30 AM EDT Office Visit [address] [place] [phone] Renetta Naidu[address] [place] [address] Scheduled Orders Name Type Priority Associated Diagnoses [...] this encounter Medical Devices Implanted Type Area Braddisher Device Identifier Shelf Expiration Date Model / Serial / Lot Device Perm Cntrl [id number] - [id number] Implanted:Qty: 2 on 09/30/2014 by Julio Ramírez MD at OR [facility] N/A: Fallopian Tube [employer] 03/02/2016 [id number] / / [id number] Description:Bilateral tubal documented as of this encounter Visit Diagnoses Diagnosis Malignant neoplasm of upper lobe of right lung (HCC)- Primary Malignant neoplasm of upper lobe, bronchus or lung 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
--- OUTSIDE RECORDS SUMMARY | 2024-02-08 04:30 | External Medical Summary | Summary of Care ---
Author Name Unknown Organization [facility] Address [address] [place] [address] Phone [phone] Care Team Providers Care Cutter Helper Name Role Phone Renetta Naidu DO Primary Care Provider [phone] Reason for Visit * Reason Comments Medication Administration B12 1000 mcg * Episode Based Medications (Routine) - Pending Review Specialty Diagnoses / Procedures Referred By Contac t Referred To Contact Diagnoses Encounter for antineoplastic chemotherapy Malignant neoplasm of upper lobe of right lung (HCC) Metastasis to mediastinal lymph node (HCC) Yogi Muñoz MD 200 [place] [address] Anc Hem/Onc [address] [address] Referral ID Status Reason Start Date Expiration Date V isits Requested Visits Authorized [id number] Pending Review 12/06/2023 999 999 Encounter Details Date Type Department Care Team (Latest Contact Info) Description 12/06/2023 1:15 PM EDT Immunization/ Injection Hematology/Oncology Treatment, [address] [phone] Amparo, Chair 11 Hem Onc [address] [place] [address] Encounter for antineoplastic chemotherapy*; Malignant neoplasm of [...] Description 12/09/2023 8:45 AM EDT Imaging Radiology [facility] 1st [facility] 132 [facility] [place] [address] 12/09/2023 3:20 PM EDT Office Visit Pulmonary Medicine, [facility] 132 [facility] [place] [address] Shiv Mann MD [address] [facility] [place] [address] 12/11/2023 9:00 AM EDT Office Visit Hematology/Oncol [place] [address] [place] [address] [address] Yogi Muñoz MD [address] [place] [address] 12/11/2023 9:30 AM EDT Pt Ed by Nurse Hematology/Oncol [place] [address] [address] Nurse Amparo Hem Onc Rom[place] [address] [place] [address] [address] 12/23/2023 11:00 AM EST Imaging Radiology [address] [place] [address] 12/31/2023 11:15 AM EST Hospital Encounter ENDO [facility], Endoscopy Room [facility] [address] [place] [address] Clare Rodriguez DO [address] [place] [address] 12/31/2023 11:15 AM EST - 12/31/2023 11:45 AM EST Surgery ENDO [facility], Endoscopy Room [facility] [address] [place] [phone] Clare Rodriguez DO [address] [place] [address] ESOPHAGOGASTRODUODENOSCOPY (EGD), FLEXIBLE, TRANSORAL, DIAGNOSTIC 07/21/2024 8:30 AM EDT Office Visit Family Medicine [address] [place] [phone] Ren[address] [place] [address] Scheduled Procedures Name Priority Associated Diagnoses Date/Ti [...] this encounter Medical Devices Implanted Type Area Spanisher Device Identifier Shelf Expiration Date Model / Serial / Lot Device Perm Cntrl [id number] - [id number] Implanted:Qty: 2 on 09/30/2014 by Julio Ramírez MD at OR [facility] N/A: Fallopian Tube [employer] 03/02/2016 [id number] / / [id number] Description:Bilateral tubal documented as of this encounter Visit Diagnoses Diagnosis Encounter for antineoplastic chemotherapy- Primary Malignant neoplasm of upper lobe of right lung (HCC) Malignant neoplasm of upper lobe, bronchus or lung 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 Dysphagia Dysphagia, unspecified documented in this encounter Administered Medications Inactive Administered Medications - up to 3 most recent administrations Medication Order MAR Action Action Date Dose Rate Site Vitamin B-12 (Cyanocobalamin) inj 1,000 mcg 1,000 mcg, Intramuscular, ONCE, On Sat12/06/23 at 1415, For 1 dose Given 12/06/2023 1:24 PM EDT 1,000 mcg Deltoid Left Upper documented in this encounter Care Teams Cutter Helper Relationship Specialty Start Date End Date Renetta Naiud DO [address] [place] [address] [place] [phone] PCP - General Internal Medicine 11/12/23 documented as of this encounter
--- OUTSIDE RECORDS SUMMARY | 2024-02-08 04:30 | External Medical Summary | Summary of Care ---
Author Name Unknown Organization [facility] Address [address] [place] [address] Phone [phone] Care Team Providers Care Slot Floor Supervisor Name Role Phone NaiduRenetta philip Primary Care Provider Reason for Visit * Reason Onset Date Comments Precert Future 12/06/2023 henrry Weeks carbo Encounter Details Date Type Department Care Team (Late st Contact Info) Description 12/06/2023 Telephone Hematology/Oncology Treatment, [place] [address] [place] [address] Yogi Muñoz MD 200 [place] [address] Precert Future (Keytruda, alimta, carbo) Allergies No [...] EDT Order received for keytruda, alimta, carbo. [place] plan built. Waiting for auth. Consent signed [...] Description 12/09/2023 8:45 AM EDT Imaging Radiology [facility] 1st [facility] 132 [facility] [place] [address] 12/09/2023 3:20 PM EDT Office Visit Pulmonary Medicine, [facility] 132 [facility] [place] [address] Shiv Mann MD [facility] [address] 12/11/2023 9:00 AM EDT Office Visit Hematology/Oncol blanca Christensen [place] 200 [facility] [place] [phone] Yogi Muñoz MD [address] [place] [address] 12/11/2023 9:30 AM EDT Pt Ed by Nurse Hematology/Oncol ogy Román Christensen [place] [address] [place] [address] Nurse Amparo Hem Onc [place] [address] [place] [address] 12/23/2023 11:00 AM EST Imaging Radiology [address] [place] [address] 12/31/2023 11:15 AM EST Hospital Encounter ENDO [facility], Endoscopy Room [facility] [address] [place] [address] Clare Rodriguez DO [address] [place] [address] 12/31/2023 11:15 AM EST - 12/31/2023 11:45 AM EST Surgery ENDO [facility], Endoscopy Room [facility] [address] [place] [address] Clare Rodriguez DO [address] [place] [address] ESOPHAGOGASTRODUODENOSCOPY (EGD), FLEXIBLE, TRANSORAL, DIAGNOSTIC 07/21/2024 8:30 AM EDT Office Visit Family Medicine [address] [place] [address] [place] [address] Scheduled Orders Name Type Priority Associated Diagnoses [...] this encounter Medical Devices Implanted Type Area Bullet Slug Casting Machine Operator Device Identifier Shelf Expiration Date Model / Serial / Lot Device Perm Cntrl [id number] - [id number] Implanted:Qty: 2 on 09/30/2014 by Julio Ramírez MD at OR [facility] N/A: Fallopian Tube [employer] 03/02/2016 [id number] / / [id number] Description:Bilateral tubal documented as of this encounter Visit Diagnoses Diagnosis Malignant neoplasm of upper lobe of right lung (HCC)- Primary Malignant neoplasm of upper lobe, bronchus or lung 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
--- OUTSIDE RECORDS SUMMARY | 2024-02-08 04:31 | External Medical Summary | Summary of Care ---
Author Name Unknown Organization [facility] [address] [facility] [address] Phone [phone] Care Team Providers Care Chemical Dependency Therapist Name Role Phone Renetta Naidu Primary Care Provider Reason for Referral * Precert (Within 10 days (routine)) - Authorized Specialty Diagnoses / Procedures Referred By Willian ceballos Referred To Contact Radiology Diagnoses Mass of upper lobe of right lung Procedures PET CT SKULL BASE TO MID-THIGH FDG Shiv Mann MD [address] [place] [address] Referral ID Status Reason Start Date Expiration Date V isits Requested Visits Authorized [id number] Authorized 12/02/2023 999 999 Reason for Visit * Reason Onset Date Comments Appointment 11/25/2023 Encounter Details Date Type Department Care Team (Late st Contact Info) Description 11/25/2023 Telephone Pulmonary Medicine, [facility] 132 [facility] [place] [address] Shiv Mann MD [address] [place] [phone] Appointment Allergies No known active allergiesdocumented as of this encounter (statuses as of 11/25/2023) Medications Medication Sig Dispensed Refills Start Date End Date Status lamoTRIgine 100 MG Oral Tablet (LaMICtal) TAKE 1 TABLET BY MOUTH 2 TIME(S) PER DAY 05/04/2020 Active Lybalvi 20-10 MG Oral Tablet ONE TABLET BY MOUTH AT BEDTIME FOR MOOD 04/22/2022 Active Trelegy Ellipta 200-62.5-25 MCG/ACT Aerosol Powder Breath Activated (Fluticasone-Umecli dinium-Vilanterol)I ndications: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 30 Blister Dosing Unit 5 09/25/2023 Active Albuterol Sulfate HFA 108 (90 Base) MCG/ACT Inhalation Aerosol SolutionIndications :Tobacco use,SOB (shortness of breath) Inhale 2 Puffs by mouth every 4 hours as needed for Wheezing. 18 g 1 10/30/2023 Active Pantoprazole Sodium 40 MG Oral Tablet Delayed Release (Protonix)Indicatio ns:Dysphagia, unspecified type Take 1 Tablet by mouth in the morning. 30 minutes before the first meal of the day. Do not crush, split or chew the tablet. 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 Overview: PFTs reflect more of a restrictive pattern Tobacco use disorder 06/15/2022 documented as of this encounter (statuses as of 11/25/2023) Resolved Problems Problem Noted Date Diagnosed Date Resolved Date Restrictive lung disease 06/15/2022 Depression 05/02/2012 06/15/2022 Generalized anxiety disorder 01/14/2012 06/15/2022 documented as of this encounter (statuses as of 11/25/2023) Immunizations Name Administration Dates Next Due Pneumococcal [...] Miscellaneous Notes * Telephone Encounter - Clare Oliver OSA - 11/25/2023 1:11 PM EDT We will not be able to do the ebus and pet scan on the same day. I called patient and left her a message to please call me back. I can do the ebus on 11/28/2023 at [facility]. * Telephone Encounter - Alexa Stephenson LPN - 11/25/2023 11:24 AM EDT Pt states she would like a call back at [phone] with the testing dates. 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 Patient was notified regarding results of CT scan chest and high likelihood for malignancy 11/25/2023 at 7:30 a.m. Bronchoscopy EBUS was recommended. Patient is agreeable. Plan for expedited EBUS for tissue diagnostic workup PET scan Pulmonary clinic follow-up documented in this encounter Plan of Treatment Upcoming Encounters Date Type Department Care Team (Late st Contact Info) Description 12/09/2023 3:20 PM EDT Office Visit Pulmonary Medicine, [facility] [address] [place] [address] Shiv Mann MD [address] [place] [address] 07/21/2024 8:30 AM EDT Office Visit Family Medicine [address] [place] [phone] Renetta Naidu[address] [place] [address] Scheduled Orders Name Type Priority Associated Diagnoses Orde r Schedule BRONCHOSCOPY, DX W/ EBUS, 3 OR MORE NODES Procedures Routine Mass of upper lobe of right lung Ordered: 11/25/[address] SKULL BASE TO MID-THIGH FDG Medical Imaging Routine Mass of upper lobe of right lung Expected: 12/02/2023, Expires: 12/25/2024 Health Maintenance Due Date Last Done Comments [...] 06/25/2022 Colorectal Cancer Screening 07/05/2025 Diabetes Screening 11/04/2026 11/05/2023, 0 11/05/2023, 04/16/2023, Additional history exists Lipid Panel 11/04/2028 11/05/2023, 03/22, 08/29/2022, Additional history exists Alpha-1 Antitrypsin Completed 11/05/2023 HPV (Gardasil) Vaccine Aged Out No lo nger eligible based on patient's age to complete this topic MENINGOCOCCAL (MENACTRA/MENVEO) Aged Out No longer eligible based on patient's age to complete this topic documented as of this encounter Medical Devices Implanted Type Area Snow Removal/Plowing Device Identifier Shelf Expiration Date Model / Serial / Lot Device Perm Cntrl [id number] - [id number] Implanted:Qty: 2 on 09/30/2014 by Julio Ramírez MD at OR [facility] N/A: Fallopian Tube [employer] 03/02/2016 [id number] / / [id number] Description:Bilateral tubal documented as of this encounter Visit Diagnoses Diagnosis Mass of upper lobe of right lung- Primary documented in this encounter Care Teams Chemical Dependency Therapist Relationship Specialty Start Date End Date Renetta Naidu DO [address] [place] [address] [place] [phone] PCP - General Internal Medicine 11/12/23 documented as of this encounter
--- OUTSIDE RECORDS SUMMARY | 2024-02-08 04:31 | External Medical Summary | Summary of Care ---
Author Name Unknown Organization [facility] Address [address] [place] [place] [address] Phone [phone] Care Team Providers Care Log Feeder Name Role Phone Renetta Naidu Primary Care Provider Reason for Visit * Reason Onset Date Comments Test Results 11/26/2023 CT Chest Encounter Details Date Type Department Care Team (Late st Contact Info) Description 11/26/2023 Telephone Pulmonary Medicine, 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 Radiation Oncology and Medical Oncology referrals have been placed. * Telephone Encounter - Su Jimenez LPN - 12/02/2023 11:27 AM EDT 11/27 EBUS cytology results are back for your review. 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, currently at 1.5 ppd [...] diagnostic workup PET scan Pulmonary clinic follow-up Chart Note documented in this encounter Plan of Treatment Upcoming Encounters Date Type Department Care Team (Late st Contact Info) Description 12/09/2023 8:45 AM EDT Imaging Radiology [facility] [address] [place] [address] 12/09/2023 3:20 PM EDT Office Visit Pulmonary Medicine, [address] [place] [address] Shiv Mann MD [address] [facility] [place] [id number] 07/21/2024 8:30 AM EDT Office Visit Family Medicine [address] [place] [phone] [address] [place] [address] Health Maintenance Due Date Last Done Comments [...] this encounter Medical Devices Implanted Type Area Computer Information Systems Instructor Device Identifier Shelf Expiration Date Model / Serial / Lot Device Perm Cntrl [id number] - [id number] Implanted:Qty: 2 on 09/30/2014 by Julio Ramírez MD at OR [facility] N/A: Fallopian Tube [employer] 03/02/2016 [id number] / / [id number] Description:Bilateral tubal documented as of this encounter Care Teams Log Feeder Relationship Specialty Start Date End Date Renetta Naidu DO [address] [place] [address] [place] [phone] PCP - General Internal Medicine 11/12/23 documented as of this encounter
--- OUTSIDE RECORDS SUMMARY | 2024-02-08 04:31 | External Medical Summary | Summary of Care ---
Author Name Unknown Organization [facility] [address] [facility] [address] Phone [phone] Care Team Providers Care Make Up Worker Name Role Phone Renetta Naidu Primary Care Provider [phone] Reason for Visit * Reason Comments Outpatient Testing Encounter Details Date Type Department Care Team (Late st Contact Info) Description 11/27/2023 9:20 AM EDT Laboratory Laboratory [address] [place] [phone] [facility] [address] [place] [address] [employer] Other*[id number]; Encounter for long-term (current) use of medications Allergies No known active allergiesdocumented as of this encounter (statuses as of 11/27/2023) Medications Medication Sig Dispensed Refills Start Date [...] as of this encounter (statuses as of 11/27/2023) Active Problems Problem Noted Date Diagnosed Date Bipolar 1 disorder 06/15/2022 Overview: Follows with psychiatry - at [facility] Hyperlipidemia with target LDL less than 100 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 Overview: PFTs reflect more of a restrictive pattern Tobacco use disorder 06/15/2022 documented as of this encounter (statuses as of 11/27/2023) Resolved Problems Problem Noted Date Diagnosed Date Resolved Date Restrictive lung disease 06/15/2022 Depression 05/02/2012 06/15/2022 Generalized anxiety disorder 01/14/2012 06/15/2022 documented as of this encounter (statuses as of 11/27/2023) Immunizations Name Administration Dates Next Due Pneumococcal [...] Department Care Team (Latest Contact Info) Description 11/28/2023 1:00 PM EDT Hospital Encounter [facility], Operating Room, [facility] - 4th Floor [address] [facility] [place] [phone] Shiv Mann MD [address] [place] [address] 11/28/2023 1:00 PM EDT - 11/28/2023 2:20 PM EDT Surgery OR [facility], Operating Room, [facility] - 4th Floor [address] [place] [phone] Shiv Mann MD [address] [place] [address] BRONCHOSCOPY, RIGID/FLEXIBLE, INCLUDE FLUORO GUIDANCE, WHEN PERFORMED; W/ EBUS GUIDED TRANSTRACH AND/OR TRANSBRONCH SAMPLING, 1 OR 2 MEDIASTINAL AND/OR HILAR LYMPH NODE STATIONS/STRUCTURES 12/09/2023 8:45 AM EDT Imaging Radiology [facility] 1st [facility] [address] [facility] [place] [address] 12/09/2023 3:20 PM EDT Office Visit Pulmonary Medicine, [facility] [address] [facility] [place] [address] Shiv Mann MD [address] [place] [address] 07/21/2024 8:30 AM EDT Office Visit Family Medicine [address] [place] [address] [address] [place] [address] Pending Results Name Type Priority Associated Diagnoses Date /Time MYCODE SUBSEQUENT ADULT Lab Routine [employer] Other*[id number] 11/27/2023 9:10 AM EDT COMPREHENSIVE METABOLIC PANEL Lab Routine Encounter for long-term (current) use of medications 11/27/2023 9:10 AM EDT MYCODE SST1 Lab Routine [employer] Other*[id number] 11/27/2023 9:10 AM EDT MYCODE SST2 Lab Routine [employer] Other*[id number] 11/27/2023 9:10 AM EDT Scheduled Procedures Name Priority Associated Diagnoses Date/Ti me BRONCHOSCOPY, RIGID/FLEXIBLE , INCLUDE FLUORO GUIDANCE, WHEN PERFORMED; W/ EBUS GUIDED TRANSTRACH AND/OR TRANSBRONCH SAMPLING, 1 OR 2 MEDIASTINAL AND/OR HILAR LYMPH NODE STATIONS/STRUCTURES Lung nodule 11/28/2023 1:00 PM EDT Health Maintenance Due Date Last Done Comments [...] this encounter Medical Devices Implanted Type Area Ultimate Hoops Referee Device Identifier Shelf Expiration Date Model / Serial / Lot Device Perm Cntrl [id number] - [id number] Implanted:Qty: 2 on 09/30/2014 by Julio Ramírez MD at OR [facility] N/A: Fallopian Tube [employer] 03/02/2016 [id number] / / [id number] Description:Bilateral tubal documented as of this encounter Visit Diagnoses Diagnosis [employer] Other*[id number] Encounter for long-term (current) use of medications Encounter for long-term (current) use of other medications Lung nodule Solitary pulmonary nodule documented in this encounter Care Teams Make Up Worker Relationship Specialty Start Date End Date Renetta Naidu DO [address] [place] [address] [place] [address] PCP - General Internal Medicine 11/12/23 documented as of this encounter
--- OUTSIDE RECORDS SUMMARY | 2024-02-08 04:31 | External Medical Summary | Summary of Care ---
Author Name Unknown Organization [facility] Address [address] [place] [address] Phone [phone] Care Team Providers Care Waxed Bag Machine Operator Name Role Phone NaiduRenetta philip Primary Care Provider Reason for Visit * Reason Onset Date Comments Advice 12/02/2023 advice Encounter Details Date Type Department Care Team (Late st Contact Info) Description 12/02/2023 Telephone Access Center, [place] [address] [facility] *DO NOT REMOVE THIS DEPARTMENT* [place] [address] Services, Scheduling [address] [place] [address] Advice (advice) Allergies No known active allergiesdocumented as of [...] Encounter - Shiv Mann MD - 12/02/2023 5:26 PM EDT Right lung Ign-kjtkl-lnko lung cancer, large cell neuroendocrine type, positive subcarinal lymph nodes. Patient is aware of results. Medical Oncology and Radiation Oncology referrals have been placed. * Telephone Encounter - Bernice Membreno LPN - 12/02/2023 1:09 PM EDT Called patient and she stated that she is unable to even sweep the floor or walk for a short distance without being SOB. She will have to sit and than she can get her breath again.she had a lot of white phlegm ,over short periods of time. I asked her if she feels that her breathing more SOB than usual and she stated yes. And she doesn't have a pulse OX to take it. She had the BRONCH on of last week. I advised her to go to The ER for evaluation. She stated understanding and she is going to go to the ER . * Telephone Encounter - Edyta Villegas OSA - 12/02/2023 12:00 PM EDT Patient call in stating that after her Bronch she still have trouble breathing and she has a lot phlegm is white, please can a nurse contact her back to triage her symptoms she is a little worried. Please advice documented in this encounter Plan of Treatment Upcoming Encounters Date Type Department Care Team (Late st Contact Info) Description 12/09/2023 8:45 AM EDT Imaging Radiology [address] [place] [address] 12/09/2023 3:20 PM EDT Office Visit Pulmonary Medicine, [address] [place] [address] Shiv Mann MD [address] [facility] [place] [address] 07/21/2024 8:30 AM EDT Office Visit Family Medicine [address] [place] [phone] Renetta Naidu [address] [place] [address] Health Maintenance Due Date Last Done Comments [...] this encounter Medical Devices Implanted Type Area Digital Print Operator Device Identifier Shelf Expiration Date Model / Serial / Lot Device Perm Cntrl [id number] - [id number] Implanted:Qty: 2 on 09/30/2014 by Julio Ramírez MD at OR [facility] N/A: Fallopian Tube [employer] 03/02/2016 [id number] / / [id number] Description:Bilateral tubal documented as of this encounter Care Teams Waxed Bag Machine Operator Relationship Specialty Start Date End Date Renetta Naidu DO [address] [place] [address] [place] [phone] PCP - General Internal Medicine 11/12/23 documented as of this encounter
--- OUTSIDE RECORDS SUMMARY | 2024-02-08 04:31 | External Medical Summary | Summary of Care ---
Author Name Unknown Organization [facility] Address [address] [facility] [address] Phone [phone] Care Team Providers Care Sewer And Drain Technician Name Role Phone Renetta Naidu DO Primary Care Provider Reason for Visit * Reason Onset Date Comments Test Results 11/26/2023 CT Chest Encounter Details Date Type Department Care Team (Late st Contact Info) Description 11/26/2023 Telephone Pulmonary Medicine, [facility] [address] [facility] [place] [address] Shiv Mann MD [address] [facility] [place] [id number] Test Results (CT Chest) Allergies No known active allergiesdocumented as of this encounter (statuses as of 11/26/2023) Medications Medication Sig Dispensed Refills Start Date [...] as of this encounter (statuses as of 11/26/2023) Active Problems Problem Noted Date Diagnosed Date Bipolar 1 disorder 06/15/2022 Overview: Follows with psychiatry - at [facility] Hyperlipidemia with target LDL less than 100 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 Overview: PFTs reflect more of a restrictive pattern Tobacco use disorder 06/15/2022 documented as of this encounter (statuses as of 11/26/2023) Resolved Problems Problem Noted Date Diagnosed Date Resolved Date Restrictive lung disease 06/15/2022 Depression 05/02/2012 06/15/2022 Generalized anxiety disorder 01/14/2012 06/15/2022 documented as of this encounter (statuses as of 11/26/2023) Immunizations Name Administration Dates Next Due Pneumococcal [...] Miscellaneous Notes * Telephone Encounter - Cass Cisse, CJ - 11/26/2023 1:42 PM EDT ----- Message from Shiv Mann MD sent at 11/25/2023 7:42 AM EDT ----- 48 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, currently at 1.5 ppd [...] 11/28/2023 1:00 PM EDT Hospital Encounter OR [facility], Operating Room, [facility] - 4th Floor [address] [facility] [place] [phone] Shiv Mann MD [address] [place] [address] 11/28/2023 1:00 PM EDT - 11/28/2023 2:20 PM EDT Surgery OR [facility], Operating Room, [facility] - [address] [place] [address] [address] [facility] [place] [address] Shiv Mann MD [address] [place] [address] BRONCHOSCOPY, RIGID/FLEXIBLE, INCLUDE FLUORO GUIDANCE, WHEN PERFORMED; W/ EBUS GUIDED TRANSTRACH AND/OR TRANSBRONCH SAMPLING, 1 OR 2 MEDIASTINAL AND/OR HILAR LYMPH NODE STATIONS/STRUCTURES 12/09/2023 8:45 AM EDT Imaging Radiology [facility] 1st [facility] [address] [facility] [place] [address] 12/09/2023 3:20 PM EDT Office Visit Pulmonary Medicine, [facility] [address] [facility] [place] [address] Shiv Mann MD [address] [place] [address] 07/21/2024 8:30 AM EDT Office Visit [address] [phone] [place] Renetta Voileta, [address] [place] [phone] Scheduled Procedures Name Priority Associated Diagnoses Date/Ti [...] encounter Medical Devices Implanted Type Area Supervisor Lamp Shades Device Identifier Shelf Expiration Date Model / Serial / Lot Device Perm Cntrl [id number] - [id number] Implanted:Qty: 2 on 09/30/2014 by Julio Ramírez MD at OR [facility] N/A: Fallopian Tube [employer] 03/02/2016 [id number] / / [id number] Description:Bilateral tubal documented as of this encounter Care Teams Sewer And Drain Technician Relationship Specialty Start Date End Date Renetta Naidu DO [address] [place] [address] [place] [phone] PCP - General Internal Medicine 11/12/23 documented as of this encounter
--- OUTSIDE RECORDS SUMMARY | 2024-02-08 04:31 | External Medical Summary | Summary of Care ---
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 Name Role Phone NaiduRenetta philip Primary Care Provider Reason for Visit * Auth/Cert Specialty Diagnoses / Procedures Referred By Willian t Referred To Contact Diagnoses Lung nodule Lung nodule [R91.1] Procedures BRONCHOSCOPY, DX W/ EBUS, 1-2 NODES BRONCHOSCOPY, RIGID/FLEXIBLE, INCLUDE FLUORO GUIDANCE, WHEN PERFORMED; W/ EBUS GUIDED TRANSTRACH AND/OR TRANSBRONCH SAMPLING, 1 OR 2 MEDIASTINAL AND/OR HILAR LYMPH NODE STATIONS/STRUCTURES Shiv Mann MD [address] [place] [address] Or [facility] [address] [place] [address] Referral ID Status Reason Start Date Expiration Date Visits Re quested Visits Authorized [id number] Encounter Details Date Type Department Care Team (Latest Contact Info) Description 11/28/2023 11:19 AM EDT - 11/28/2023 3:57 PM EDT Hospital Encounter OR [facility], Operating Room, [facility] - 4th Floor [address] [place] [address] Shiv Mann MD [address] [place] [address] GI Bronchoscopy Discharge Disposition: Home - Self Care Allergies No known active allergiesdocumented as of this encounter (statuses as of 11/29/2023) Medications Medication Sig Dispensed Refills Start Date [...] IN THE MORNING 90 Tablet 11/14/2023 Active documented as of this encounter (statuses as of 11/29/2023) Active Problems Problem Noted Date Diagnosed Date Mass of right lung 11/28/2023 Bipolar 1 disorder 06/15/2022 Overview: Follows with psychiatry - at [facility] Hyperlipidemia with target LDL less than 100 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 Overview: PFTs reflect more of a restrictive pattern Tobacco use disorder 06/15/2022 documented as of this encounter (statuses as of 11/29/2023) Resolved Problems Problem Noted Date Diagnosed Date Resolved Date Restrictive lung disease 06/15/2022 Depression 05/02/2012 06/15/2022 Generalized anxiety disorder 01/14/2012 06/15/2022 documented as of this encounter (statuses as of 11/29/2023) Immunizations Name Administration Dates Next Due Pneumococcal [...] Sign Reading Time Taken Comments Blood Pressure 117/72 11/28/2023 3:43 PM EDT Pulse 88 11/28/2023 3:43 PM EDT Temperature 37.1 C (98.8 F) 11/28/2023 3:43 PM ED T Respiratory Rate 18 11/28/2023 3:43 PM EDT Oxygen Saturation 91% 11/28/2023 3:45 PM EDT Inhaled Oxygen Concentration - - Weight 67.6 kg (149 lb) 11/28/2023 11:36 AM EDT Height 154.9 cm (5' 1") 11/28/2023 11:36 AM EDT Body Mass Index 28.15 11/28/2023 11:36 AM EDT documented in this encounter Discharge Summaries * Shiv Mann MD - 11/28/2023 2:27 PM EDT Images from the original note were not included. [address] [address] Admission Date: 11/28/2023 Discharge Date: 11/28/2023 DISCHARGE DIAGNOSES: Active Hospital Problems Diagnosis Mass of right lung Resolved Hospital Problems No resolved problems to display. Patient was seen and examined. Patient is stable for release from Observation to home. Summary of care provided as follows: 48-year-old female with 30 pack-year smoking history, worsening cough. CT chest revealed right lungmass. Patient presenting for endobronchial ultrasound biopsy and workup. Endobronchial ultrasound bronchoscopy and conventional fiberoptic bronchoscopy was done. Endobronchial lesion noted with near complete occlusion of right mainstem and right upper lobe bronchus. Lymphnode sampling from station 7, 4R along with conventional forceps biopsy and TBNA and bronchial washings with cytology brushing was completed. Preliminary results are positive for atypical cells, awaiting final cytology results. MEDICATIONS: MEDICATION UPDATES AT DISCHARGE CONTINUE taking these medications but follow up with your Primary Care Physician (PCP). INSTRUCTIONS albuterol HFA 108 (90 BASE) MCG/ACT inhaler Inhale 2 Puffs by mouth every 4 hours as needed for Wheezing. lamoTRIgine 100 MG Tablet Commonly known as: LaMICtal TAKE 1 TABLET BY MOUTH 2 TIME(S) PER DAY Lybalvi 20-10 MG Tabs Generic drug: OLANZapine-Samidorphan ONE TABLET BY MOUTH AT BEDTIME FOR MOOD pantoprazole 40 MG Tbec Commonly known as: Protonix Take 1 Tablet by mouth in the morning. 30 minutes before the first meal of the day. Do not crush, split or chew the tablet. predniSONE 20 MG Tabs Tablet Commonly known as: Deltasone 2 tablets daily for 5 days then 1 tablet daily rosuvastatin 10 MG Tablet Commonly known as: Crestor TAKE 1 TABLET BY MOUTH EVERY DAY IN THE MORNING Trelegy Ellipta 200-62.5-25 MCG/ACT Aepb Generic drug: Kzjlowxkpix-Xdkylqxdefyp-Owfjsrmcql Inhale 1 Puff by mouth in the morning. SCHEDULED FOLLOW-UP: Future Appointments Appt Date/Time Provider Department 12/09/2023 8:45 AM [facility] PET INJECTION Radiology [address] 12/09/2023 10:00 AM PET MOBILE [facility] [address] 12/09/2023 3:20 PM Shiv Mann MD Pulmonary Medicine, [facility] 07/21/2024 8:30 AM Renetta Naidu DO [facility] PRIMARY CARE PROVIDER: PCP: Renetta Naidu, [address] / [place] [address] (office) [phone] (fax) Note: To contact a physician responsible for this patients hospital care, please call [facility] [phone]. 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 CXR 04/2022: WNL Assessment: Right lung mass, noted on LDCT screening Restrictive lung disease, noted on PFT, without evidence of I LD COPD risk factors as noted Plan: Bronchoscopy including conventional and EBUS bronchoscopy PAST MEDICAL HISTORY: Past Medical History: Diagnosis Date Bipolar 1 disorder (HCC) GERD (gastroesophageal reflux disease) Hyperlipidemia Panic disorder HOME MEDICATIONS: Prior to Admission medications Medication Sig Last Dose Discont. Rosuvastatin Calcium 10 MG Oral Tablet (Crestor) TAKE 1 TABLET BY MOUTH EVERY DAY IN THE MORNING 11/27/2023 Pantoprazole Sodium 40 MG Oral Tablet Delayed Release (Protonix) Take 1 Tablet by mouth in the morning. 30 minutes before the first meal of the day. Do not crush, split or chew the tablet. 11/27/2023 Albuterol Sulfate HFA 108 (90 Base) MCG/ACT Inhalation Aerosol Solution Inhale 2 Puffs by mouth every 4 hours as needed for Wheezing. Past Week Trelegy Ellipta 200-62.5-25 MCG/ACT Aerosol Powder Breath Activated (Kihcqoqivjh-Pzrbogialvns-Mfysiebftb) Inhale 1 Puff by mouth in the morning. 11/27/2023 Lybalvi 20-10 MG Oral Tablet ONE TABLET BY MOUTH AT BEDTIME FOR MOOD 11/27/2023 lamoTRIgine 100 MG Oral Tablet (LaMICtal) TAKE 1 TABLET BY MOUTH 2 TIME(S) PER DAY 11/27/2023 predniSONE 20 MG Oral Tablet (Deltasone) 2 tablets daily for 5 days then 1 tablet daily Patient not taking: Reported on 11/26/2023 Not Taking ALLERGIES: Patient has no known allergies. FAMILY HISTORY: Family History Problem Relation Name Age of Onset Lung Disorder Mother Other (Hyperlipidemia [Other]) Mother Hypertension Father No Past Hx Sister No Past Hx Sister No Past Hx Sister No Past Hx Sister No Past Hx Sister Breast Cancer Grandmother (Maternal) SOCIAL HISTORY: Social History Socioeconomic History Marital status: Single [...] Cigarettes Smokeless tobacco: Never Tobacco comments: 1 /2 ppd. Every day smoker. 10/28/23. Vaping Use [...] Housing Stability: Not on file Review of Systems: No reported history of Hemoptysis, Hematemesis, Melena No reported history of Dysuria, Hematuria, Flank Pain No reported history of chronic headache, seizures No reported history of Fall or trauma No reported history of recent change in weight or appetite PHYSICAL EXAMINATION: BP: 137 mmHg/83 mmHg (11/28/23 1136) Pulse: 89 (11/28/23 113) Resp: 16 (11/28/23 113) Temp: 36.61 C (11/28/23 113) Temp Summary: Temp Min: 36.6 C (97.9 F) Max: 36.6 C (97.9 F) SpO2: 95 % (11/28/23 113) O2 flow rate: Supplemental O2 Delivery: Room Air, None (11/28/23 114) Pulse Av Min: 89 Max: 89 No intake or output data in the 24 hours ending 11/28/23 1235 Physical examination: Alert, awake, no distress Class 3 throat No JVD Adequate air entry with coarse breath sounds, no dullness, scattered coarse wheezing S1, S2, no murmur Soft, nontender abdomen No lower extremity edema Nonlateralizing Neuro examination LABS: No results in the last 7 days - inpatent use only Lab results within last 7 days (see chart for full results) Units 11/27/23 0910 SODIUM mmol/L 138 POTASSIUM mmol/L 3.9 CHLORIDE mmol/L 101 CO2 mmol/L 23 BUN mg/dL 7 CREATININE mg/dL 0.7 Lab results within last 7 days (see chart for full results) Units 11/27/23 0910 Protein g/dL 6.9 Bilirubin, Total mg/dL 0.7 Alkaline Phosphatase U/L 100 AST U/L 26 ALT U/L 9* No results in the last 7 days - inpatent use only No results in the last 7 days - inpatent use only No results found for: "PTT", "INR" No results found for: "PH", "PO2", "PCO2" No results found for: "CK", "CKMB", "LACTATE" No results found for: "CULTURE" IMAGING: No imaging results in the last 72 hours Impression and TreatmentPlan: 48 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 CXR 04/2022: WNL Assessment: Right lung mass, noted on LDCT screening Restrictive lung disease, noted on PFT, without evidence of I LD COPD risk factors as noted Plan: Bronchoscopy including conventional and EBUS bronchoscopy I have seen and examined this patient. Case was discussed with the team. Agree with noted clinical findings, treatment plan and orders as mentioned in team note. Consult / Medical Evaluation and Management Time= 30 min DISCLAIMER: Source Notes: The document above describes current episode of care provided by the undersigned provider. Customized document templates, and Prior care notes (for the same patient) by the same provider (Dr. Mann) may be utilized (with updated content) within the current document in order to maintain consistency of recommended individualized diagnostic workup and treatment plan. Typographical errors: This dictation was verbally transcribed via [employer] Dictation system software. Occasional Errors, spelling flaws and omissions are inherent in digital transcriptions. Please contact the undersigned for any clarification/correction in the dictated transcript as needed. documented in this encounter Procedure Notes * Shiv Mann MD - 11/28/2023 2:18 PM EDT Fiberoptic Bronchoscopy Procedure note: Performed by: Dr Mann Indication: Right mainstem and right lung mass Sedation: General anesthesia Consent obtained from: Patient Time out was called. Conventional FOB was advanced thru ETT. Trachea was accessed. Surveillance bronchoscopy was done through the Right and Left mainstem and subsegmental bronchi. Near complete occlusion of right mainstem bronchus and right upper lobe subsegmental bronchus was noted along with extrinsic compression of distal trachea. Conventional Alvarez needle transbronchial aspiration and forceps biopsies were done from jaycee and right mainstem lesion. EBUS Fiberoptic Bronchoscopy Procedure note: Performed by: Dr Mann Indication: Right lung mass Hilar lymphadenopathy Sedation: General anesthesia Consent obtained from: Patient Time out was called. Conventional FOB was advanced thru ETT adapter. Trachea was accessed. Surveillance bronchoscopy wasdone through the Right and Left mainstem and subsegmental bronchi. Scattered areas of mucopurulent secretions were noted and suctioned. Extrinsic compression noted at takeoff of right upper lobe bronchus. Patient tolerated the procedure without distress. Conventional FOB was then withdrawn. EBUS bronchoscope was advanced through endotracheal tube adapter. Station 7 was accessed. Six passes were completed under ultrasound visualization followed by rapid on-site cytology evaluation. Limited bleeding was noted. Station 4R was accessed.Five passes were completed under direct visualization followed by rapid on-site cytology evaluation. Limited bleeding was noted. EBUS bronchoscope was then withdrawn and surveillance completed with conventional FOB. FINDINGS: (X) - positive endobronchial lesion with near complete occlusion of right mainstem and right upper lobe bronchus. Trachea: Abnormal(X) Jaycee: Abnormal(X) Rt. UL: Abnormal(X) Rt. ML: Normal (X) Abnormal() Rt. LL: Normal (X) Abnormal() Lt. UL: Normal (X) Abnormal() Lt. Lingula Normal (X) Abnormal() LLL: Normal (X) Abnormal() Specimens Collected: Specimens Collected: TBNA station 7, 4R: (X) Bronchial Washing: (X): Cytology Florence: (X): TransBronch. Bx (X): Complications: None (X) Chest X-Ray: Ordered (X) * Renetta Naidu, - 11/28/2023 12:50 PM EDTAssociated Order(s): BRONCHOSCOPY [facility] Patient Name: Sarah Ponce Procedure Date: 11/28/2023 12:50 PM Date of : 1975 Admit Type: Outpatient Note Status: Finalized Date of : 1975 Admit Type: Outpatient Age: 48 Room: Operating Room Gender: Female Note Status: Finalized Procedure: Bronchoscopy Indications: Mediastinal adenopathy Providers: Shiv Mann MD Referring MD: Renetta Naidu DO (Referring MD) Complications: No immediate complications Procedure: After obtaining informed consent, the [id number] Bronchoscope ([id number]) was introduced through the mouth, via the endotracheal tube (the patient was intubated for the procedure) and advanced to the tracheobronchial tree of both lungs. All instruments were visually inspected immediately before and after removal from the patient to ensure they are fully intact. the [id number] Bronchoscope ([id number]) was introduced through the mouth, via the endotracheal tube (the patient was intubated for the procedure) and advanced to the tracheobronchial tree of both lungs. All instruments were visually inspected immediately before and after removal from the patient to ensure they are fully intact. The procedure was accomplished without difficulty. The patient tolerated the procedure well. Findings & Specimens: The laryngeal mask airway is in good position. The vocal cords appear normal. The subglottic space is normal. The trachea is of normal caliber. The jaycee is sharp. The tracheobronchial tree was examined to at least the first subsegmental level. Bronchial mucosa and anatomy are normal; there are no endobronchial lesions, and no secretions. The scope was withdrawn and replaced with the EBUS bronchoscope to accomplish the ultrasound examination. Lymph Nodes: An endobronchial ultrasound endoscope was utilized to systematically examine the right lower paratracheal region (level 4R) and subcarinal mediastinum (level 7) in order to assist with guiding the biopsy needle. Lymph node sizing was performed via endobronchial ultrasound for suspected lung cancer. Sampling by transbronchial needle aspiration was also performed using an Olympus ViziShot 21 gauge needle in the right lower paratracheal region (level 4R) and subcarinal mediastinum (level7) and sent for routine cytology. . Node was not measured. Eight samples with the needle were obtained. - The 4R (lower paratracheal) node was not measured. Three samples with the needle were obtained. - The 7 (subcarinal) node was not measured. Sampling was not done as it was not clinically indicated. - [4th Site] [Node Sizes 4]. [Number of Samples 4]. - [5th Site] [Node Sizes 5]. [Number of Samples 5]. - [6th Site] [Node Sizes 6]. [Number of Samples 6]. - [7th Site] [Node Sizes 7]. [Number of Samples 7]. - [8th Site] [Node Sizes 8]. [Number of Samples 8]. Lymph Nodes: Lymph Nodes: Rapid On-Site Evaluation (SCARLETT): Preliminary cytology was suggestive of malignancy (final results are pending). Preliminary cytology was suggestive of malignancy (final results are pending)in the right lower paratracheal region (level 4R) and subcarinal mediastinum (level 7). Impression: - Mediastinal adenopathy - The airway examination was normal. - Endobronchial ultrasound was performed. - Lymph node sizing and sampling was performed. [Tissue?] [Dx Certainty(AutoImpression)] [Prelim Dx (AutoImpression)]. - Rapid On-Site Evaluation (SCARLETT): Preliminary cytology was suggestive of malignancy and of malignancy in node level 4R and node level 7 (final results are pending). 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 Recommendation: - Await cytology and washing results. - Patient has a contact number available for emergencies. The signs and symptoms of potential delayed complications were discussed with the patient. Return to normal activities tomorrow. Written discharge instructions were provided to the patient. - Follow up with bronchoscopist as previously scheduled. Shiv Mann MD 11/28/2023 2:17:21 PM This report has been signed electronically. documented in this encounter Nursing Notes * Carlos Quezada RN - 11/28/2023 4:16 PM EDT [facility]-[address] [address] SameDay Surgery Discharge Note Name: Sarah Ponce Date: 11/28/2023 Time: 3:57 PM Discharge Disposition: Home Responsible adult as escort home: Transport Mode: Ambulatory - Patient declined Wheelchair Accompanied by: Mateo Quezada RN To: Car Belongings with patient: Yes Patient meets criteria to be transferred or discharged. * Rosemary Kiser RN - 11/26/2023 2:50 PM EDT Patient identified by: name/birthdate Person taught: Patient Optime case procedure confirmed with patient/parent/guardian - no consent signed. Laterality confirmed as N/a Surgery date at time of Pre-Surgery Center Encounter: 11/28/23 What procedure is patient having? Procedure: BRONCHOSCOPY, RIGID/FLEXIBLE, INCLUDE FLUORO GUIDANCE,WHEN PERFORMED; W/ EBUS GUIDED TRANSTRACH AND/OR TRANSBRONCH SAMPLING, 1 OR 2 MEDIASTINAL AND/OR HILAR LYMPH NODE STATIONS/STRUCTURES ([address]326) In an emergency, is patient willing to accept blood products or blood transfusion? unknown Do you need to place a blood bank order? No Anesthesia consent pool notified? N/A Anesthesia evaluation requested per case documentation? No Preop Evaluation Requested? No PATIENT EDUCATION SCREENING Person taught: Patient Motivation Level: Asks Questions and Eager to Learn Language Barrier: No Physical Barrier: N/A METHOD: Lecture-telephone interview Patient Preferred Learning Methods: Lecture-Telephone interview Health History interview completed, questions answered, and the following patient instructions provided via telephone interview: Preoperative bathing instructions General preoperative instructions Medication instructions NPO instructions - If your normal morning routine take rosuvastatin, Protonix, Lamictal, routine and if needed rescue breathing medications the morning of surgery. OUTCOME: State / Describe / Explain, Needs Reinforcement, and Verbalizes understanding of education documented in this encounter Plan of Treatment Upcoming Encounters Date Type Department Care Team (Late st Contact Info) Description 12/09/2023 8:45 AM EDT Imaging Radiology [facility] 1st Floor, [address] [facility] [place] [address] 12/09/2023 3:20 PM EDT Office Visit Pulmonary Medicine, [address] [place] [address] Shiv Mann MD [address] [facility] [place] [id number] 07/21/2024 8:30 AM EDT Office Visit Family Medicine [address] [place] [phone] [address] [place] [address] Pending Results Name Type Priority Associated Diagnoses Date /Time SURGICAL PATHOLOGY Pathology Routine Lung nodule 11/28/2023 1:33 PM EDT CYTOLOGY Pathology Routine Lung nodule 11/28/2023 1:28 PM EDT Scheduled Orders Name Type Priority Associated Diagnoses Orde r Schedule SURGICAL PATHOLOGY Pathology Routine Lung nodule Release Upon Ordering for 1 Occurrences starting 11/28/2023 CYTOLOGY Pathology Routine Lung nodule Release Upon Ordering for 1 Occurrences starting 11/28/2023, 1 completed Health Maintenance Due Date Last Done Comments [...] this encounter Medical Devices Implanted Type Area Motion Picture Operator Device Identifier Shelf Expiration Date Model / Serial / Lot Device Perm Cntrl [id number] - [id number] Implanted:Qty: 2 on 09/30/2014 by Julio Ramírez MD at OR [facility] N/A: Fallopian Tube [employer] 03/02/2016 [id number] / / [id number] Description:Bilateral tubal documented as of this encounter Procedures Procedure Name Priority Date/Time Associated Diagnosis Comments XR CHEST 1 VIEW STAT 11/28/2023 2:59 PM EDT BRONCHOSCOPY 11/28/2023 12:50 PM EDT documented in this encounter Results * XR CHEST 1 VIEW (11/28/2023 2:59 PM EDT) Anatomical Region Laterality Modality Chest Digital Radiogra phy 11/28/2023 2:41 PM EDT Impressions 11/28/2023 4:00 PM EDT IMPRESSION: 1. There are all several pulmonary nodules bilaterally, the largest in the right upper lobe. 2. There is prominence within the right paramediastinal region, likely related to lymphadenopathy. THIS DOCUMENT HAS BEEN ELECTRONICALLY SIGNED BY DO Laly CABRERA 11/28/2023 4:00 PM EDT PROCEDURE INFORMATION: Exam: XR Chest Exam date and time: 11/28/2023 2:41 PM Age: 48 years old Clinical indication: Other: S/P bronchoscopy; Additional info: Post ebus TECHNIQUE: Imaging protocol: Radiologic exam of the chest. Views: 1 view. COMPARISON: CR ([id number], CHEST, ) 11/12/2023 11:03 AM FINDINGS: Tubes, catheters and devices: None. Lungs: Ill-defined nodular density is visualized within the right upper lobe. There are additional subcentimeter nodules visualized bilaterally. Pleural spaces: No significant pleural effusion or pneumothorax. Heart/Mediastinum: No cardiomegaly. There is prominence within the right paramediastinal region, most likely related to lymphadenopathy. Bones/joints: Unremarkable. Procedure Note Huma Cowart DO - 11/28/2023 PROCEDURE INFORMATION: Exam: XR Chest Exam date and time: 11/28/2023 2:41 PM Age: 48 years old Clinical indication: Other: S/P bronchoscopy; Additional info: Post ebus TECHNIQUE: Imaging protocol: Radiologic exam of the chest. Views: 1 view. COMPARISON: CR ([id number], CHEST, ) 11/12/2023 11:03 AM FINDINGS: Tubes, catheters and devices: None. Lungs: Ill-defined nodular density is visualized within the right upperlobe. There are additional subcentimeter nodules visualized bilaterally. Pleural spaces: No significant pleural effusion or pneumothorax. Heart/Mediastinum: No cardiomegaly. There is prominence within the right paramediastinal region, most likely related to lymphadenopathy. Bones/joints: Unremarkable. IMPRESSION IMPRESSION: 1. There are all several pulmonary nodules bilaterally, the largest in the right upper lobe. 2. There is prominence within the right paramediastinal region, likelyrelated to lymphadenopathy. THIS DOCUMENT HAS BEEN ELECTRONICALLY SIGNED BY HUMA COWART DO Shiv Mann MD RADIOLOGY ([facility]) * BRONCHOSCOPY (11/28/2023 12:50 PM EDT) 11/28/2023 12:5 0 PM EDT Narrative Procedure Note Renetta Naidu DO - 11/28/2023 12:50 PM EDT [facility] Patient Name: Sarah Ponce Procedure Date: 11/28/2023 12:50 PM Date of : 1975 Admit Type: Outpatient Note Status:Finalized Date of : 1975 Admit Type: Outpatient Age: 48 Room: Operating Room Gender: Female Note Status: Finalized Procedure: Bronchoscopy Indications: Mediastinal adenopathy Providers: Shiv Mann MD Referring MD: Renetta Naidu DO (Referring MD) Complications: No immediate complications Procedure: After obtaining informed consent, the [id number] ([id number]) was introduced through the mouth, via the endotracheal tube (thepatient was intubated for the procedure) and advanced to the tracheobronchialtree of both lungs. All instruments were visually inspected immediately before andafter removal from the patient to ensure they are fully intact. the [id number] ([id number]) was introduced through the mouth, via the endotracheal tube (thepatient was intubated for the procedure) and advanced to the tracheobronchialtree of both lungs. All instruments were visually inspected immediately before andafter removal from the patient to ensure they are fully intact. The procedure wasaccomplished without difficulty. The patient tolerated the procedure well. Findings & Specimens: The laryngeal mask airway is in good position. The vocal cords appearnormal. The subglottic space is normal. The trachea is of normal caliber. The jaycee is sharp. Thetracheobronchial tree was examined to at least the first subsegmental level. Bronchial mucosa andanatomy are normal; there are no endobronchial lesions, and no secretions. The scope was withdrawn and replaced with the EBUS bronchoscope toaccomplish the ultrasound examination. Lymph Nodes: An endobronchial ultrasound endoscope was utilized tosystematically examine the right lower paratracheal region (level 4R) and subcarinal mediastinum(level 7) in order to assist with guiding the biopsy needle. Lymph node sizing was performed viaendobronchial ultrasound for suspected lung cancer. Sampling by transbronchial needle aspiration was alsoperformed using an Olympus ViziShot 21 gauge needle in the right lower paratracheal region (level 4R) andsubcarinal mediastinum (level 7) and sent for routine cytology. . Node was not measured. Eight sampleswith the needle were obtained. - The 4R (lower paratracheal) node was not measured. Three sampleswith the needle were obtained. - The 7 (subcarinal) node was not measured. Sampling was not done asit was not clinically indicated. - [4th Site] [Node Sizes 4]. [Number of Samples 4]. - [5th Site] [Node Sizes 5]. [Number of Samples 5]. - [6th Site] [Node Sizes 6]. [Number of Samples 6]. - [7th Site] [Node Sizes 7]. [Number of Samples 7]. - [8th Site] [Node Sizes 8]. [Number of Samples 8]. Lymph Nodes: Lymph Nodes: Rapid On-Site Evaluation (SCARLETT): Preliminary cytologywas suggestive of malignancy (final results are pending). Preliminary cytology was suggestive ofmalignancy (final results are pending) in the right lower paratracheal region (level 4R) and subcarinalmediastinum (level 7). Impression: - Mediastinal adenopathy - The airway examination was normal. - Endobronchial ultrasound was performed. - Lymph node sizing and sampling was performed.[Tissue?] [Dx Certainty(AutoImpression)] [Prelim Dx(AutoImpression)]. - Rapid On-Site Evaluation (SCARLETT): Preliminarycytology was suggestive of malignancy and of malignancy in node level 4R and node level 7(final results are pending). - Lung cancer was identified in the right mainstembronchus and in the right upper lobe. Recommendation: - Await cytology and washing results. - [facility] The signs and symptoms of potential delayed complications were discussed withthe patient. Return to normal activities tomorrow. Written discharge instructionswere provided to the patient. - Follow up with bronchoscopist as previouslyscheduled. Shiv Mann MD 11/28/2023 2:17:21 PM This report has been signed electronically. Renetta Mcdaniel Naidu DO GASTRO UPPER documented in this encounter Visit Diagnoses Diagnosis Lung nodule Solitary pulmonary nodule Mass of right lung documented in this encounter Administered Medications Inactive Administered Medications - up to 3 most recent administrations Medication Order MAR Action Action Date Dose Rate Site albuterol-ipratropium (Duoneb) inhalation solution 3 mL 3 mL, Nebulizer, RESPQID, First dose on Rossy 11/28/23 at 1600, Until Discontinued, 3 mL = 0.5 mg ipratropium/ 2.5 mg albuterol, Pre-Op Given 11/28/2023 3:03 PM EDT 3 mL Given 11/28/2023 12:58 PM EDT 3 mL isolyte-S pH 7.4 infusion Intravenous, at 10 mL/hr, Plasma-LYTE 148, isolyte-S, and isolyte-S pH 7.4 are considered equivalent - including for MAR barcode scanning., CONTINUOUS, Starting on Rossy 11/28/23 at 1230, Until Rossy 11/28/23 at 2022 Restarted 11/28/2023 2:09 PM EDT Continue from Pre-Op 11/28/2023 1:06 PM EDT 10 mL/hr New Bag 11/28/2023 11:51 AM EDT 10 mL/hr documented in this encounter Active and Recently Administered Medications Times are shown in EDT. Scheduled Medication Order 11/26/2023 11/27/2023 11/28/2023 albuterol-ipratropium (Duoneb) inhalation solution 3 mL 3 mL, Nebulizer, RESPQID, First dose on Rossy 11/28/23 at 1600, Until Discontinued, 3 mL = 0.5 mg ipratropium/ 2.5 mg albuterol, Pre-Op 1258 (Given - Provid er: Abby Quezada, CORROSION CONTROL FITTER)1503 (Given - Provider: Carlos Quezada RN - Comment: given by Kerry Quezada RT per verbal request from Dr Mann) Continuous Medication Order 11/26/2023 11/27/2023 11/28/2023 isolyte-S pH 7.4 infusion Intravenous, at 10 mL/hr, Plasma-LYTE 148, isolyte-S, and isolyte-S pH 7.4 are considered equivalent - including for MAR barcode scanning., CONTINUOUS, Starting on Rossy 11/28/23 at 1230, Until Rossy 11/28/23 at 2022 1151 (New Bag - Prov ider: Bette Kent RN)1306 (Continue from Pre-Op - Provider: Therese Mckeon CRNA)1408 (Paused - Provider: Therese Mckeon CRNA - Comment: Switch to gravity)1409 (Restarted - Provider: Therese Mckeon CRNA) documented in this encounter Care Teams Metal Reclamation Kettle Tender Relationship Specialty Start Date End Date NaiduRenetta philip DO [address] [place] [address] [place] [address] PCP - General Internal Medicine 11/12/23 documented as of this encounter
--- OUTSIDE RECORDS SUMMARY | 2024-02-08 04:31 | External Medical Summary | Summary of Care ---
Author Name Unknown Organization [facility] Address [address] [place] [address] Phone [phone] Care Team Providers Care Family Physician Name Role Phone NaiduRenetta philip Primary Care Provider [phone] Reason for Referral * Evaluate & Treat - Unlimited Visits (Within 3 days (urgent)) - Authorized Specialty Diagnoses / Procedures Referred By Willian ceballos Referred To Contact Radiation Oncology Diagnoses Non-small cell lung cancer, right (HCC) Shiv Mann MD [address] [place] [address] Referral ID Status Reason Start Date Expiration Date Visits Requested Visits Authorized [id number] Authorized Specialty Services Required 4 [phone] Question Answer Referral Priority Within 3 days (urgent) Where should this appointment be scheduled? External - [facility] Rad Onc What is the preferred location to have this test performed? Non-[facility] Site Comments Please route Radiation Oncology referral to [facility] Radiation Oncology Newly diagnosed wos-aowan-ymnr lung cancer, large cell neuroendocrine type Positive right mainstem, subcarinal and 4R lymph nodes Encounter Details Date Type Department Care Team (Late st Contact Info) Description 12/03/2023 Orders Only Pulmonary Medicine, [address] [place] [address] Shiv Mann MD [address] [facility] [place] [phone] Non-small cell lung cancer, right (HCC)* Allergies No known active allergiesdocumented as of [...] 8:45 AM EDT Imaging Radiology [facility] 1st [facility] [address] [facility] [place] [address] 12/09/2023 3:20 PM EDT Office Visit Pulmonary Medicine, [address] [place] [address] Shiv Mann MD [address] [facility] [place] [phone] 07/21/2024 8:30 AM EDT Office Visit Family Medicine [address] [place] [phone] [address] [place] [address] Scheduled Referrals Name Type Priority Associated Diagnoses Orde r Schedule RADIATION/ONCOLOGY REFERRAL OP Referral Within 3 days (urgent) Non-small cell lung cancer, right (HCC) Ordered: 12/03/2023 Health Maintenance Due Date Last Done Comments [...] 08/01/2023 07/31/2022, 06/18/2022 COVID-19 Vaccine (1 - season) 2023 Influenza Vaccine (FLU shot) [...] this encounter Medical Devices Implanted Type Area Unbundler Device Identifier Shelf Expiration Date Model / Serial / Lot Device Perm Cntrl [id number] - [id number] Implanted:Qty: 2 on 09/30/2014 by Julio Ramírez MD at OR [facility] N/A: Fallopian Tube [employer] 03/02/2016 [id number] / / [id number] Description:Bilateral tubal documented as of this encounter Visit Diagnoses Diagnosis Non-small cell lung cancer, right (HCC)- Primary documented in this encounter Care Teams Family Physician Relationship Specialty Start Date End Date Renetta Naidu DO [address] [place] [address] [place] [address] PCP - General Internal Medicine 11/12/23 documented as of this encounter
--- OUTSIDE RECORDS SUMMARY | 2024-02-08 04:31 | External Medical Summary | Summary of Care ---
Author Name Unknown Organization [facility] Address [address] [place] [address] Phone [phone] Care Team Providers Care Associate Manager Affiliate Marketing Name Role Phone NaiduRenetta philip Primary Care Provider Reason for Referral * Evaluate & Treat - Unlimited Visits (Within 3 days (urgent)) - Authorized Specialty Diagnoses / Procedures Referred By Contac t Referred To Contact Radiation Oncology Diagnoses Non-small cell lung cancer, right (HCC) Shiv Mann MD [address] [place] [address] Referral ID Status Reason Start Date Expiration Date Visits Requested Visits Authorized [id number] Authorized Specialty Services Required 4 [phone] Question Answer Referral Priority Within 3 days (urgent) Where should this appointment be scheduled? [facility] What is the preferred location to have this test performed? Comments Right lung Jgo-nuwhd-clzm lung cancer, large cell neuroendocrine type, positive subcarinal lymph nodes. Patient is aware of results. * Evaluate & Treat - Unlimited Visits (Within 3 days (urgent)) - Authorized Specialty Diagnoses / Procedures Referred By Contac t Referred To Contact Hematology/Oncology / Hematology Oncology Diagnoses Non-small cell lung cancer, right (HCC) Shiv Mann MD [address] [place] [address] Referral ID Status Reason Start Date Expiration Date Visits Requested Visits Authorized [id number] Authorized Specialty Services Required 4 [phone] Question Answer Referral Priority Within 3 days (urgent) Where should this appointment be scheduled? [facility] Reason for Referral Malignant Oncology (Solid Organ Cancer) Comments Right lung Qdv-najhh-iowl lung cancer, large cell neuroendocrine type, positive subcarinal lymph nodes. Patient is aware of results. Encounter Details Date Type Department Care Team (Late st Contact Info) Description 12/02/2023 Orders Only Pulmonary Medicine, [address] [place] [address] Shiv Mann MD [address] [place] [phone] Non-small cell lung cancer, right (HCC)* Allergies [...] 06/15/2022 [facility]: [facility] LDL less than [...] as of this encounter Progress Notes * Shiv Mann MD - 12/02/2023 5:26 PM EDT Right lung Nfr-ugrei-irbk lung cancer, large cell neuroendocrine type, positive subcarinal lymph nodes. Patient is aware of results. documented in this encounter Plan of Treatment Upcoming Encounters Date Type Department Care Team (Late st Contact Info) Description 12/09/2023 8:45 AM EDT Imaging Radiology [facility] [address] [place] [address] 12/09/2023 3:20 PM EDT Office Visit Pulmonary Medicine, [address] [place] [address] Shiv Mann MD [address] [place] [address] 07/21/2024 8:30 AM EDT Office Visit Family Medicine [address] [place] [phone] Renetta Naidu[address] [place] [address] Scheduled Referrals Name Type Priority Associated Diagnoses Orde r Schedule HEMATOLOGY/ONCOLOGY REFERRAL OP Referral Within 3 days (urgent) Non-small cell lung cancer, right (HCC) Ordered: 12/02/2023 RADIATION/ONCOLOGY REFERRAL OP Referral Within 3 days (urgent) Non-small cell lung cancer, right (HCC) Ordered: 12/02/2023 Health Maintenance Due Date Last Done Comments [...] this encounter Medical Devices Implanted Type Area Sprayer Insecticide Device Identifier Shelf Expiration Date Model / Serial / Lot Device Perm Cntrl [id number] - [id number] Implanted:Qty: 2 on 09/30/2014 by Julio Ramírez MD at OR [facility] N/A: Fallopian Tube [employer] 03/02/2016 [id number] / / [id number] Description:Bilateral tubal documented as of this encounter Visit Diagnoses Diagnosis Non-small cell lung cancer, right (HCC)- Primary documented in this encounter Care Teams Associate Manager Affiliate Marketing Relationship Specialty Start Date End Date Renetta Naidu DO [address] [place] [address] [place] [address] PCP - General Internal Medicine 11/12/23 documented as of this encounter
--- OUTSIDE RECORDS SUMMARY | 2024-02-08 04:31 | External Medical Summary | Summary of Care ---
Author Name Unknown Organization [facility] [address] [facility] [address] Phone [phone] Care Team Providers Care Forge Shop Machine Repairer Name Role Phone Renetta Naidu Primary Care Provider [phone] Reason for Referral * Precert (Within 10 days (routine)) - Authorized Specialty Diagnoses / Procedures Referred By Willian ceballos Referred To Contact Radiology Diagnoses Mass of upper lobe of right lung Procedures PET CT SKULL BASE TO MID-THIGH FDG Shiv Mann MD [address] [place] [address] Referral ID Status Reason Start Date Expiration Date V isits Requested Visits Authorized [id number] Authorized 12/02/2023 999 999 Reason for Visit * Reason Onset Date Comments Appointment 11/25/2023 Encounter Details Date Type Department Care Team (Late st Contact Info) Description 11/25/2023 Telephone Pulmonary Medicine, [facility] [address] [facility] [place] [address] Shiv Mann MD [address] [place] [phone] Appointment Allergies No known active allergiesdocumented as [...] 06/15/2022 Overview: [facility] with target LDL less than [...] encounter Miscellaneous Notes * Telephone Encounter - Alexa Stephenson LPN - 11/25/2023 11:24 AM EDT Pt states she would like a call back at [phone] with the testing dates. Hoping to have everything done on the same day * Telephone Encounter - Alexa Stephenson LPN - 11/25/2023 8:18 AM EDT Save to follow up coming testing * Telephone Encounter - Shiv Mann MD - 11/25/2023 7:35 AM EDT 48 yo female Rtd Regulatory Intern 30 py smoker, currently at 1.5 ppd [...] 3:20 PM EDT Office Visit Pulmonary Medicine, [facility] 132 [facility] [place] [phone] Shiv Mann MD [facility] [address] [facility] [place] [phone] 07/21/2024 8:30 AM EDT [address] [phone] Renetta Naidu, [address] [place] [address] Scheduled Orders Name Type Priority Associated Diagnoses [...] this encounter Medical Devices Implanted Type Area Foundry Metallurgist Device Identifier Shelf Expiration Date Model / Serial / Lot Device Perm Cntrl [id number] - [id number] Implanted:Qty: 2 on 09/30/2014 by Julio Ramírez MD at OR [facility] N/A: Fallopian Tube [employer] 03/02/2016 [id number] / / [id number] Description:Bilateral tubal documented as of this encounter Visit Diagnoses Diagnosis Mass of upper lobe of right lung- Primary documented in this encounter Care Teams Forge Shop Machine Repairer Relationship Specialty Start Date End Date Renetta Naidu DO [address] [place] [address] [place] [address] PCP - General Internal Medicine 11/12/23 documented as of this encounter
--- OUTSIDE RECORDS SUMMARY | 2024-02-08 04:31 | External Medical Summary | Summary of Care ---
Author Name Unknown Organization [facility] Address [address] [place] [facility] [place] [facility] [place] [address] Phone [phone] Care Team Providers Care Management Rep Name Role Phone Renetta Naidu Primary Care Provider Reason for Visit * Reason Onset Date Comments Test Results 11/26/2023 CT Chest Encounter Details Date Type Department Care Team (Late st Contact Info) Description 11/26/2023 Telephone Pulmonary Medicine, [facility] 132 [facility] [place] [address] Shiv Mann MD [address] [facility] [place] [address] Test Results (CT Chest) Allergies [...] encounter Miscellaneous Notes * Telephone Encounter - Su Jimenez LPN - 12/02/2023 11:27 AM EDT 11/27 EBUS cytology results are back for your review. 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, currently at 1.5 ppd [...] Description 12/09/2023 8:45 AM EDT Imaging Radiology [facility] [address] [place] [address] 12/09/2023 3:20 PM EDT Office Visit Pulmonary Medicine, [address] [place] [address] Shiv Mann MD [address] [place] [address] 07/21/2024 8:30 AM EDT Office Visit Family Medicine [address] [place] [phone] Renetta Naidu[address] [place] [address] Health Maintenance Due Date Last Done Comments [...] encounter Medical Devices Implanted Type Area Technical Artist Device Identifier Shelf Expiration Date Model / Serial / Lot Device Perm Cntrl [id number] - [id number] Implanted:Qty: 2 on 09/30/2014 by Julio Ramírez MD at OR [facility] N/A: Fallopian Tube [employer] 03/02/2016 [id number] / / [id number] Description:Bilateral tubal documented as of this encounter Care Teams Management Rep Relationship Specialty Start Date End Date Renetta Naidu DO [address] [place] [address] [place] [address] PCP - General Internal Medicine 11/12/23 documented as of this encounter
--- OUTSIDE RECORDS SUMMARY | 2024-02-08 04:31 | External Medical Summary | Summary of Care ---
Author Name Unknown Organization [facility] Address [address] [facility] [address] Phone [phone] Care Team Providers Care Telecommunications Network Planner Name Role Phone Renetta Naidu Primary Care Provider Reason for Visit * Reason Comments Outpatient Testing Encounter Details Date Type Department Care Team (Late st Contact Info) Description 11/27/2023 9:20 AM EDT Laboratory Laboratory [address] [place] [phone] [facility] [address] [place] [address] [email or web address] Other*[id number]; Encounter for long-term (current) use of medications [...] Hospital Encounter OR GL, Operating Room, [facility] - 4th Floor [address] [facility] [place] [phone] Shiv Mann MD [address] [place] [address] 11/28/2023 1:00 PM EDT - 11/28/2023 2:20 PM EDT Surgery OR GL, Operating Room, [facility] - 4th Floor [address] [place] [address] Shiv Mann MD [address] [place] [address] BRONCHOSCOPY, RIGID/FLEXIBLE, INCLUDE FLUORO GUIDANCE, WHEN PERFORMED; W/ EBUS GUIDED TRANSTRACH AND/OR TRANSBRONCH SAMPLING, 1 OR 2 MEDIASTINAL AND/OR HILAR LYMPH NODE STATIONS/STRUCTURES 12/09/2023 8:45 AM EDT Imaging Radiology [facility] 1st [facility] [address] [facility] [place] [address] 12/09/2023 3:20 PM EDT Office Visit Pulmonary Medicine, [facility] [address] [facility] [place] [address] Shiv Mann MD [address] [place] [address] 07/21/2024 8:30 AM EDT Office Visit Family Medicine [address] [place] [phone] [address] [place] [address] Pending Results Name Type Priority Associated Diagnoses Date /Time MYCODE SUBSEQUENT ADULT Lab Routine [employer] Other*[id number] 11/27/2023 9:10 AM EDT COMPREHENSIVE METABOLIC PANEL Lab Routine Encounter for long-term (current) use of medications 11/27/2023 9:10 AM EDT MYCODE SST1 Lab Routine [employer] Other*[id number] 11/27/2023 9:10 AM EDT MYCODE SST2 Lab Routine [employer] Other*[id number] 11/27/2023 9:10 AM EDT Scheduled Procedures Name [...] encounter Medical Devices Implanted Type Area Senior Writer Device Identifier Shelf Expiration Date Model / Serial / Lot Device Perm Cntrl [id number] - [id number] Implanted:Qty: 2 on 09/30/2014 by Julio Ramírez MD at OR [facility] N/A: Fallopian Tube [employer] 03/02/2016 [id number] / / [id number] Description:Bilateral tubal documented as of this encounter Visit Diagnoses Diagnosis [employer] Other*[id number] Encounter for long-term (current) use of medications Encounter for long-term (current) use of other medications Lung nodule Solitary pulmonary nodule documented in this encounter Care Teams Telecommunications Network Planner Relationship Specialty Start Date End Date Renetta Naidu DO [address] [place] [address] [place] [address] PCP - General Internal Medicine 11/12/23 documented as of this encounter
--- OUTSIDE RECORDS SUMMARY | 2024-02-08 04:31 | External Medical Summary | Summary of Care ---
Author Name Unknown Organization [facility] Address [address] [place] [address] Phone [phone] Care Team Providers Care Trench Digger Name Role Phone NaiduRenetta philip Primary Care Provider Reason for Visit * Reason Onset Date Comments Advice 12/02/2023 advice Encounter Details Date Type Department Care Team (Late st Contact Info) Description 12/02/2023 Telephone Access Center, [place] [facility] [address] [facility] *DO NOT REMOVE THIS DEPARTMENT* [place] [address] Services, Scheduling [address] [place] [address] Advice (advice) Allergies No known active allergiesdocumented [...] encounter Miscellaneous Notes * Telephone Encounter - Chasidy MembrenolisCJ - 12/02/2023 1:09 PM EDT Called patient [...] Description 12/09/2023 8:45 AM EDT Imaging Radiology [facility] 1st [facility] 132 [facility] [place] [address] 12/09/2023 3:20 PM EDT Office Visit Pulmonary Medicine, [address] [place] [address] Shiv Mann MD [address] [facility] [place] [address] 07/21/2024 8:30 AM EDT Office Visit Family Medicine [address] [place] [phone] Renetta Naidu[address] [place] [address] Health Maintenance Due Date Last Done Comments [...] this encounter Medical Devices Implanted Type Area Software Engineer Device Identifier Shelf Expiration Date Model / Serial / Lot Device Perm Cntrl [id number] - [id number] Implanted:Qty: 2 on 09/30/2014 by Julio Ramírez MD at OR [facility] N/A: Fallopian Tube [employer] 03/02/2016 [id number] / / [id number] Description:Bilateral tubal documented as of this encounter Care Teams Trench Digger Relationship Specialty Start Date End Date Renetta Naidu DO [address] [place] [address] [place] [phone] PCP - General Internal Medicine 11/12/23 documented as of this encounter
--- OUTSIDE RECORDS SUMMARY | 2024-02-08 04:31 | External Medical Summary ---
Author Name Unknown Address Unknown Organization K01:[facility] [place] [address] [facility] [place] [address] Laboratory Report Ordering Provider Test Date Status SHANELL POONPHIL 11/27/2023 09:10:54 Final Observation Date Value Abnormality Reference (Units ) Status BUN 11/27/2023 09:10:54 7 6-20 (mg/dL) Final Creatinine 11/27/2023 09:10:54 0.7 0.5-1.0 (mg/dL) Final Glomerular filtration rate/1.73 sq M.predicted [Volume Rate/Area] in Serum, Plasma or Blood by Creatinine-based formula (CKD-EPI) 11/27/2023 09:10:54 >90 >=60 (mL/min) Final eGFR is calculated based on the CKD-EPI 2020 equation. Sodium 11/27/2023 09:10:54 138 135-146 (m mol/L) Final Potassium 11/27/2023 09:10:54 3.9 3.5-5.1 (m mol/L) Final Cl 11/27/2023 09:10:54 101 98-107 (mm ol/L) Final CO2 11/27/2023 09:10:54 23 22-32 (mmo l/L) Final Anion gap 11/27/2023 09:10:54 14 7-15 (mmol /L) Final Glucose 11/27/2023 09:10:54 87 70-120 (mg /dL) Final Albumin 11/27/2023 09:10:54 4.2 3.8-5.0 (g /dL) Final AST (Aspartate aminotransferase) 11/27/2023 09:10:54 26 10-35 (U/L) Fin al Alk Phos 11/27/2023 09:10:54 100 35-130 (U/ L) Final Bilirubin, Total 11/27/2023 09:10:54 0.7 <=1 .2 (mg/dL) Final Calcium 11/27/2023 09:10:54 9.6 8.4-10.2 ( mg/dL) Final Protein 11/27/2023 09:10:54 6.9 6.0-8.3 (g /dL) Final ALT (Alanine aminotransferase) 11/27/2023 09:10:54 9 Below low normal 10-35 (U/L) Final Performing Location [facility] [place] [address] [facility] [address]
--- OUTSIDE RECORDS SUMMARY | 2024-02-08 04:31 | External Medical Summary | Summary of Care ---
Author Name Unknown Organization [facility] Address [address] [facility] [address] Phone [phone] Care Team Providers Care Photo Colorer Name Role Phone Renetta Naidu Primary Care Provider Reason for Referral * Precert (Within 10 days (routine)) - Authorized Specialty Diagnoses / Procedures Referred By Willian ceballos Referred To Contact Radiology Diagnoses Mass of upper lobe of right lung Procedures PET CT SKULL BASE TO MID-THIGH FDG Shiv Mann MD [address] [place] [address] Referral ID Status Reason Start Date Expiration Date V isits Requested Visits Authorized [id number] Authorized 12/02/2023 999 999 Reason for Visit * Reason Onset Date Comments Appointment 11/25/2023 Encounter Details Date Type Department Care Team (Late st Contact Info) Description 11/25/2023 Telephone Pulmonary Medicine, [facility] 132 [facility] [place] [address] Shiv Mann MD [address] [place] [phone] Appointment Allergies No known active allergiesdocumented as [...] 06/15/2022 Overview: [facility] Hyper[facility] with target LDL less than [...] Telephone Encounter - Clare Oliver OSA - 11/26/2023 9:55 AM EDT Patient is scheduled for the ebus on 11/27. She is aware of the date and prep. She is also scheduled for the pet scan on 12/09/2023 and is aware of the dates and times. * Telephone Encounter - Clare Oliver OSA - 11/25/2023 1:11 PM EDT We will not be able to do the ebus and pet scan on the same day. I called patient and left her a message to please call me back. I can do the ebus on 11/28/2023 at [facility]. * Telephone Encounter - Alexa Stephenson LPN - 11/25/2023 11:24 AM EDT Pt states she would like a call back at [phone] with the testing dates. 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, currently at 1.5 ppd [...] Care Team (Late st Contact Info) Description 11/28/2023 Hospital Encounter OR [facility], Operating Room, [facility] - 4th Floor [address] [place] [address] Shiv Mann MD [address] [place] [address] 12/09/2023 8:45 AM EDT Imaging Radiology [facility] 1st [facility] [address] [facility] [place] [address] 12/09/2023 3:20 PM EDT Office Visit Pulmonary Medicine, [facility] [address] [facility] [place] [address] Shiv Mann MD [address] [place] [address] 07/21/2024 8:30 AM EDT Office Visit Family Medicine [address] [place] [phone] [address] [place] [address] Scheduled Orders Name Type Priority Associated Diagnoses Orde r Schedule BRONCHOSCOPY, DX W/ EBUS, 3 OR MORE NODES Procedures Routine Mass of upper lobe of right lung Ordered: 11/25/[address] SKULL BASE TO MID-THIGH FDG Medical Imaging Routine Mass of upper lobe of right lung Expected: 12/02/2023, Expires: 12/25/2024 Scheduled Procedures Name Priority Associated Diagnoses Date/Ti me BRONCHOSCOPY, RIGID/FLEXIBLE , INCLUDE FLUORO GUIDANCE, WHEN PERFORMED; W/ EBUS GUIDED TRANSTRACH AND/OR TRANSBRONCH SAMPLING, 1 OR 2 MEDIASTINAL AND/OR HILAR LYMPH NODE STATIONS/STRUCTURES Lung nodule Health Maintenance Due Date Last Done Comments [...] this encounter Medical Devices Implanted Type Area Private Client Advisor Device Identifier Shelf Expiration Date Model / Serial / Lot Device Perm Cntrl [id number] - [id number] Implanted:Qty: 2 on 09/30/2014 by Julio Ramírez MD at OR [facility] N/A: Fallopian Tube [employer] 03/02/2016 [id number] / / [id number] Description:Bilateral tubal documented as of this encounter Visit Diagnoses Diagnosis Mass of upper lobe of right lung- Primary documented in this encounter Care Teams Photo Colorer Relationship Specialty Start Date End Date Renetta Naidu DO [address] [place] [address] [place] [address] PCP - General Internal Medicine 11/12/23 documented as of this encounter
--- OUTSIDE RECORDS SUMMARY | 2024-02-08 04:31 | External Medical Summary | Summary of Care ---
Author Name Unknown Organization [facility] Address [address] [place] [address] Phone [phone] Care Team Providers Care Assistant Secretary Name Role Phone NaiduRenetta philip Primary Care Provider Reason for Visit * Reason Onset Date Comments Advice 12/02/2023 Encounter Details Date Type Department Care Team (Late st Contact Info) Description 12/02/2023 Telephone Access Center, [place] [address] [facility] *DO NOT REMOVE THIS DEPARTMENT* [place] [address] Services, Scheduling [address] [place] [address] Advice Allergies No known active allergiesdocumented as [...] encounter Miscellaneous Notes * Telephone Encounter - Edyta Villegas OSA [...] AM EDT Imaging [facility] 1st [facility] [address] [place] [address] 12/09/2023 3:20 PM EDT Office Visit Pulmonary Medicine, [facility] [address] [place] [address] Shiv Mann MD [address] [place] [address] 07/21/2024 8:30 AM EDT Office Visit Family Medicine [address] [address] [place] [address] Health Maintenance Due Date Last Done Comments [...] this encounter Medical Devices Implanted Type Area Diversified Crops Farmer Device Identifier Shelf Expiration Date Model / Serial / Lot Device Perm Cntrl [id number] - [id number] Implanted:Qty: 2 on 09/30/2014 by Julio Ramírez MD at [facility] N/A: Fallopian Tube [employer] 03/02/2016 [id number] / / [id number] Description:Bilateral tubal documented as of this encounter Care Teams Assistant Secretary Relationship Specialty Start Date End Date Renetta Naidu DO [address] [place] [address] [place] [address] PCP - General Internal Medicine 11/12/23 documented as of this encounter
--- OUTSIDE RECORDS SUMMARY | 2024-02-08 04:31 | External Medical Summary ---
Author Name Unknown Address Unknown Organization K01:[place] [facility] [place] [address] [place] [address] Laboratory Report Ordering Provider Test Date Status CHAD CAMACHO 11/27/2023 09:10:54 Final Observation Date Value Abnormality Reference (Units ) Status MYCODE SPECIMEN-SST 11/27/2023 09:10:54 Freezing of extracted DNA, whole blood and/or serum. Final Performing Location LABORATORY C - [address] [place] [address]
--- OUTSIDE RECORDS SUMMARY | 2024-02-08 04:31 | External Medical Summary ---
Author Name Unknown Address Unknown Organization K01:[facility]ORY [facility] [place] [address] [place] [address] Laboratory Report Ordering Provider Test Date Status CHAD CAMACHO 11/27/2023 09:10:54 Final Observation Date Value Abnormality Reference (Units ) Status MYCODE SPECIMEN-SST 11/27/2023 09:10:54 Freezing of extracted DNA, whole blood and/or serum. Final Performing Location LABORATORY C - [address] [place] [address]
--- OUTSIDE RECORDS SUMMARY | 2024-02-08 04:32 | External Medical Summary ---
Author Name Unknown Address Unknown Organization : Laboratory Report Ordering Provider Test Date Status VIKTORIYA TREJO 11/05/2023 09:57:49 Final Observation Date Value Abnormality Reference (Units ) Status Alpha-1 antitrypsin 11/05/2023 09:57:49 224 Above high normal 83-199 (mg/dL) Final
Test Performed at:
[facility]
[address] [facility] [place] [address]
Mata Woodson M.D., Ph.D.,Director of Laboratories Performing Location
--- OUTSIDE RECORDS SUMMARY | 2024-02-08 04:32 | External Medical Summary | Summary of Care ---
Author Name Unknown Organization [facility] Address [address] [facility] [address] Phone [phone] Care Team Providers Care Intermediate Card Tender Name Role Phone Unavailable Primary Care Provider Unavailabl e Reason for Visit * Reason Comments Outpatient Testing Encounter Details Date Type Department Care Team (Late st Contact Info) Description 11/05/2023 9:50 AM EDT Laboratory Laboratory [address] [place] [phone] [place], Lab [address] [place] [address] VSporto Other*[id number]; Chronic cough; Restrictive lung disease; Encounter for long-term (current) use of other medications Allergies No known active allergiesdocumented as of this encounter (statuses as of 11/05/2023) Medications Medication Sig Dispensed Refills Start Date End Date Status lamoTRIgine 100 MG Oral Tablet (LaMICtal) TAKE 1 TABLET BY MOUTH 2 TIME(S) PER DAY 05/04/2020 Active Lybalvi 20-10 MG Oral Tablet ONE TABLET BY MOUTH AT BEDTIME FOR MOOD 04/22/2022 Active Rosuvastatin Calcium 10 MG Oral Tablet (Crestor)Indication s:Dyslipidemia, goal LDL below 160 TAKE 1 TABLET BY MOUTH EVERY DAY IN THE MORNING 90 Tablet 1 04/29/2023 Active Fluticasone-Umeclid in-Vilant 100-62.5-25 MCG/ACT Aerosol Powder Breath Activated (Trelegy Ellipta) Inhale 1 Puff by mouth in the morning. 180 Blister Dosing Unit 3 08/27/2023 Active Trelegy Ellipta 200-62.5-25 MCG/ACT Aerosol Powder [...] for Wheezing. 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 Overview: PFTs reflect more of a restrictive pattern Tobacco use disorder 06/15/2022 documented as of this encounter (statuses as of 11/05/2023) Resolved Problems Problem Noted Date Diagnosed Date Resolved Date Restrictive lung disease 06/15/2022 Depression 05/02/2012 06/15/2022 Generalized anxiety disorder 01/14/2012 06/15/2022 documented as of this encounter (statuses as of 11/05/2023) Immunizations Name Administration Dates Next Due Pneumococcal Polysaccharide PPV23 (Pneumovax) Seasonal Influenza, Trivalen t, (IIV3), with Preserv, (Fluzone) 12/14/2011 TDAP (age 10 and older)(Boostrix) 06/12/2012 documented as of this encounter Social History Tobacco Use Types Packs/Day Years Used Date Smoking Tobacco: Every Day Cigarettes 1 31 Smokeless Tobacco: Never Comments:1 2 ppd. [...] Care Team (Late st Contact Info) Description 11/20/2023 1:30 PM EDT Imaging Radiology [facility] 1st [facility] [address] [place] [address] 11/20/2023 2:00 PM EDT PulmDiagnostic Pulmonary Function Lab, [facility] [address] [place] [address] [place], [address] [place] [address] 12/09/2023 3:20 PM EDT Office Visit Pulmonary Medicine, [facility] [address] [place] [address] Shiv Mann MD [address] [place] [phone] Pending Results Name Type Priority Associated Diagnoses Date /Time MYCODE INITIAL ADULT Lab Routine MyCode Research Other*[id number] 11/05/2023 9:57 AM EDT [id number], QN Lab Routine Chronic cough Restrictive lung disease 11/05/2023 9:57 AM EDT GLUCOSE, FASTING PLASMA Lab Routine Encounter for long-term (current) use of other medications 11/05/2023 9:57 AM EDT HEMOGLOBIN A1C Lab Routine Encounter for long-term (current) use of other medications 11/05/2023 9:57 AM EDT LIPID PANEL WITH DIRECT LDL IF TG IS HIGH Lab Routine Encounter for long-term (current) use of other medications 11/05/2023 9:57 AM EDT MYCODE INITIAL ADULT-PINK Lab Routine MyCode Research Other*[id number] 11/05/2023 9:57 AM EDT MYCODE SST1 Lab Routine MyCode Research Other*[id number] 11/05/2023 9:57 AM EDT MYCODE SST2 Lab Routine MyCode Research Other*[id number] 11/05/2023 9:57 AM EDT Health Maintenance Due Date Last Done Comments Alpha-1 Antitrypsin 1994 Hepatitis B Vaccine (1 of 3 - [...] 06/25/2022 Colorectal Cancer Screening 07/05/2025 Diabetes Screening 04/16/2026 04/16/2023, 0 04/16/2023, 08/29/2022, Additional history exists Lipid Panel 04/16/2028 04/16/2023, 08/18, 06/15/2022, Additional history exists HPV (Gardasil) Vaccine Aged Out No lo nger eligible based on patient's age to complete this topic MENINGOCOCCAL (MENACTRA/MENVEO) Aged Out No longer eligible based on patient's age to complete this topic documented as of this encounter Medical Devices Implanted Type Area Perl Developer Device Identifier Shelf Expiration Date Model / Serial / Lot Device Perm Cntr [id number] - [id number] Implanted:Qty: 2 on 09/30/2014 by Julio Ramírez MD at OR [facility] N/A: Fallopian Tube [employer] 03/02/2016 [id number] / / [id number] Description:Bilateral tubal documented as of this encounter Visit Diagnoses Diagnosis MyCode Research Other*[id number] Chronic cough Cough Restrictive lung disease Other diseases of lung, not elsewhere classified Encounter for long-term (current) use of other medications documented in this encounter
--- OUTSIDE RECORDS SUMMARY | 2024-02-08 04:32 | External Medical Summary ---
Author Name Unknown Address Unknown Organization K01:[place] [facility] [place] [address] [place] [address] Laboratory Report Ordering Provider Test Date Status ANAELVIE 11/05/2023 09:57:49 Final Based on guidelines from [place] r[place] Diabetes Association:
70-99 mg/dL Normal
100-125 mg/dL Pre-diabetes
>125 mg/dL Diabetes, diagnosis requires two abnormal diabetes diagnostic test results Observation Date Value Abnormality Reference (Units ) Status Fasting glucose [Moles/volume] in Serum or Plasma 11/05/2023 09:57:49 113 Above high normal 70-99 (mg/dL) Final Performing Location [place] [facility] [place] [address] [place] [address]
--- OUTSIDE RECORDS SUMMARY | 2024-02-08 04:32 | External Medical Summary | Summary of Care ---
Author Name Unknown Organization [facility] Address [address] [facility] [address] Phone [phone] Care Team Providers Care Director Museum Or Zoo Name Role Phone Renetta Naidu Primary Care Provider Reason for Referral * Precert (Within 10 days (routine)) - Authorized Specialty Diagnoses / Procedures Referred By Wililan t Referred To Contact Radiology Diagnoses Mass of upper lobe of right lung Procedures PET CT SKULL BASE TO MID-THIGH FDG Shiv Mann MD [address] [place] [address] Referral ID Status Reason Start Date Expiration Date V isits Requested Visits Authorized [id number] Authorized 12/02/2023 999 999 Encounter Details Date Type Department Care Team (Late st Contact Info) Description 11/25/2023 Telephone Pulmonary Medicine, [facility] 132 [facility] [place] [address] Shiv Mann MD [address] [place] [phone] Allergies No known active allergiesdocumented as of [...] 7:35 AM EDT 48 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, currently at 1.5 ppd [...] PM EDT Office Visit Pulmonary Medicine, [address] [place] [address] Shiv Mann MD [address] [facility] [place] [id number] 07/21/2024 8:30 AM EDT Office Visit Family Medicine [address] [place] [phone] Renetta Naidu [address] [place] [address] Scheduled Orders Name Type Priority Associated Diagnoses [...] this encounter Medical Devices Implanted Type Area Associate Account Manager Device Identifier Shelf Expiration Date Model / Serial / Lot Device Perm Cntrl [id number] - [id number] Implanted:Qty: 2 on 09/30/2014 by Julio Ramírez MD at OR [facility] N/A: Fallopian Tube [employer] 03/02/2016 [id number] / / [id number] Description:Bilateral tubal documented as of this encounter Visit Diagnoses Diagnosis Mass of upper lobe of right lung- Primary documented in this encounter Care Teams Director Museum Or Zoo Relationship Specialty Start Date End Date Renetta Naidu DO [address] [place] [address] [place] [phone] PCP - General Internal Medicine 11/12/23 documented as of this encounter
--- OUTSIDE RECORDS SUMMARY | 2024-02-08 04:32 | External Medical Summary ---
Author Name Unknown Address Unknown Organization K01:[facility]ATORY [facility] [place] 100 [facility] [place] [address] Laboratory Report Ordering Provider Test Date Status ELVIE PEREZ 11/05/2023 09:57:49 Final Observation Date Value Abnormality Reference (Units ) Status Triglyceride 11/05/2023 09:57:49 105 <=174 ( mg/dL) Final Triglyceride Reference Range s (mg/dL):
<150 Acceptable
150-174 Borderline high
175-499 High
>=500 Very high Cholesterol 11/05/2023 09:57:49 141 <200 (mg /dL) Final Total Cholesterol Reference Ranges (mg/dL):
<200 Desirable
200-239 Borderline high
>=240 High HDL 11/05/2023 09:57:49 45 Below low normal >49 (mg/dL) Final HDL Cholesterol Reference Ra nges (mg/dL):
>=60 High (Desirable)
<50 Low (Undesirable) For Females
<40 Low (Undesirable) For Males NON-HDL CHOLESTEROL 11/05/2023 09:57:49 96 <=159 (mg/dL) Final Non-HDL Cholesterol Referenc e Range (mg/dL):
<100 Target level for high risk ASCVD patient
<130 Optimal for general population
130-159 Near optimal for general population
160-189 Borderline High
190-219 High
>=220 Very High LDL, (calculated) 11/05/2023 09:57:49 75 <= 129 (mg/dL) Final LDL Cholesterol Reference Ra nges (mg/dL):
<70 Target level for high risk ASCVD patient
<100 Optimal for general population
100-129 Near optimal for general population
130-159 Borderline high
160-189 High
>=190 Very high Performing Location LABORATORY [facility] [place] - [address] [facility] [address]
--- OUTSIDE RECORDS SUMMARY | 2024-02-08 04:32 | External Medical Summary | Summary of Care ---
Author Name Unknown Organization [facility] Address [address] [place] [address] Phone [phone] Care Team Providers Care Supervisor Mill Name Role Phone Renetta Naidu DO Primary Care Provider Reason for Visit * Reason Onset Date Comments Test Results 11/23/2023 Unexpected or In determinate Result Encounter Details Date Type Department Care Team (Late st Contact Info) Description 11/23/2023 Telephone Laboratory, [place] [address] [place] [address] Shiv Mann MD [address] [facility] [place] [id number] Test Results (Unexpected or Indeterminate ... Allergies No known active allergiesdocumented as of [...] Encounter - Alexa Stephenson LPN - 11/25/2023 8:16 AM EDT Please see other message from today. has already spoken with the pt and further testing has been ordered. * Telephone Encounter - Sariah Diaz OSA - 11/23/2023 9:31 AM EDT Hello- The radiologist discovered an unexpected or indeterminate finding on Sarah Liconap ([id number]) and asks that you review the following report. Study Type: CT CHEST WO CONTRAST Date of Study: 11/20/2023 IMPRESSION IMPRESSION 1. Spiculated right upper lobe mass with extensive mediastinal and right hilar lymphadenopathy, numerous large bilateral pulmonary nodules, and multiple hepatic lesions. Findings are most consistent with primary lung malignancy with metastatic disease. 2. Enlarged gastrohepatic lymph node is also noted, also concerning for metastatic disease. Please respond to this encounter to acknowledge receipt of this message and take responsibility to ensure this report is reviewed. Thank you, [place] Schwartz Client Service Rep [facility] documented in this encounter Plan of Treatment Upcoming Encounters Date Type Department Care Team (Late st Contact Info) Description 12/09/2023 3:20 PM EDT Office Visit Pulmonary Medicine, [facility] 132 [facility] [place] [address] Shiv Mann MD [address] [facility] [place] [id number] 07/21/2024 8:30 AM EDT Office Visit Family Medicine [address] [phone] Renetta Na[address] [place] [address] Health Maintenance Due Date Last Done Comments [...] this encounter Medical Devices Implanted Type Area First Beater Device Identifier Shelf Expiration Date Model / Serial / Lot Device Perm Cntrl [id number] - [id number] Implanted:Qty: 2 on 09/30/2014 by Julio Ramírez MD at OR [facility] N/A: Fallopian Tube [employer] 03/02/2016 [id number] / / [id number] Description:Bilateral tubal documented as of this encounter Care Teams Supervisor Mill Relationship Specialty Start Date End Date Renetta Naidu DO [address] [place] [address] [place] [address] PCP - General Internal Medicine 11/12/23 documented as of this encounter
--- OUTSIDE RECORDS SUMMARY | 2024-02-08 04:32 | External Medical Summary | Summary of Care ---
Author Name Unknown Organization [facility] Address [address] [place] [address] Phone [phone] Care Team Providers Care Direct Sales Representative Name Role Phone Unavailable Primary Care Provider Unavailabl e Encounter Details Date Type Department Care Team (Late st Contact Info) Description 11/11/2023 Orders Only Outcomes Research Department [address] [place], [place] [phone] Shantelle Alonso CHRA [employer] Research Other*[id number] Allergies No known active allergiesdocumented as of this encounter (statuses as of 11/11/2023) Medications Medication Sig Dispensed Refills Start Date [...] as of this encounter (statuses as of 11/11/2023) Active Problems Problem Noted Date Diagnosed Date Bipolar 1 disorder 06/15/2022 Overview: Follows with psychiatry - at [facility] Hyperlipidemia with target LDL less than 100 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 Overview: PFTs reflect more of a restrictive pattern Tobacco use disorder 06/15/2022 documented as of this encounter (statuses as of 11/11/2023) Resolved Problems Problem Noted Date Diagnosed Date Resolved Date Restrictive lung disease 06/15/2022 Depression 05/02/2012 06/15/2022 Generalized anxiety disorder 01/14/2012 06/15/2022 documented as of this encounter (statuses as of 11/11/2023) Immunizations Name Administration Dates Next Due Pneumococcal Polysaccharide PPV23 (Pneumovax) Seasonal Influenza, Trivalen t, (IIV3), with Preserv, (Fluzone) 12/14/2011 TDAP (age 10 and older)(Boostrix) 06/12/2012 documented as of this encounter Social History Tobacco Use Types Packs/Day Years Used Date Smoking Tobacco: Every Day Cigarettes 1 31 Smokeless Tobacco: Never Comments:1 /2 ppd. [...] Description 11/20/2023 1:30 PM EDT Imaging Radiology [facility] 1st [facility] 132 [facility] [place] [address] 11/20/2023 2:00 PM EDT PulmDiagnostic Pulmonary Function Lab, [facility] 132 [facility] [place] [address] [place], [address] [facility] [place] [address] 12/09/2023 3:20 PM EDT Office Visit Pulmonary Medicine, [address] [place] [address] Shiv Mann MD [address] [place] [address] Scheduled Orders Name Type Priority Associated Diagnoses Orde r Schedule MYCODE SUBSEQUENT ADULT Lab Routine MyCode Research Other*[id number] Every 6 Months for 2 Occurrences starting 11/11/2023 until 11/30/2024 Health Maintenance Due Date Last Done Comments [...] shot) (#1) 2023 12/14/2011 Cologuard 07/05/2025 07/05/2022, 050 09/2022, 06/25/2022 Colorectal Cancer Screening 07/05/2025 Diabetes [...] this encounter Medical Devices Implanted Type Area Tonnage Compilation Clerk Device Identifier Shelf Expiration Date Model / Serial / Lot Device Perm Cntrl [id number] - [id number] Implanted:Qty: 2 on 09/30/2014 by Julio Ramírez MD at OR [facility] N/A: Fallopian Tube [employer] 03/02/2016 [id number] / / [id number] Description:Bilateral tubal documented as of this encounter Visit Diagnoses Diagnosis MyCode Research Other*[id number] documented in this encounter
--- OUTSIDE RECORDS SUMMARY | 2024-02-08 04:32 | External Medical Summary ---
Author Name Unknown Address Unknown Organization K01:[place] [facility] [place] [address] [place] [address] Laboratory Report Ordering Provider Test Date Status CHAD CAMACHO 11/05/2023 09:57:49 Final Observation Date Value Abnormality Reference (Units ) Status MYCODE SPECIMEN-SST 11/05/2023 09:57:49 Freezing of extracted DNA, whole blood and/or serum. Final Performing Location LABORATORY C - [address] [place] [address]
--- OUTSIDE RECORDS SUMMARY | 2024-02-08 04:32 | External Medical Summary | Summary of Care ---
Author Name Unknown Organization [facility] Address [address] [place] [address] Phone [phone] Care Team Providers Care Explosive Ordnance Handler Name Role Phone Renetta Naidu DO Primary Care Provider Reason for Visit * Reason Onset Date Comments Test Results 11/23/2023 Unexpected or In determinate Result Encounter Details Date Type Department Care Team (Late st Contact Info) Description 11/23/2023 Telephone Laboratory, [place] [address] [place] [address] Shiv Mann MD [address] [facility] [place] [id number] Test Results (Unexpected or Indeterminate ... 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 Overview: PFTs reflect more of a restrictive pattern Tobacco use disorder 06/15/2022 documented as of this encounter (statuses as of 11/23/2023) Resolved Problems Problem Noted Date Diagnosed Date Resolved Date Restrictive lung disease 06/15/2022 Depression 05/02/2012 06/15/2022 Generalized anxiety disorder 01/14/2012 06/15/2022 documented as of this encounter (statuses as of 11/23/2023) Immunizations Name Administration Dates Next Due Pneumococcal [...] encounter Miscellaneous Notes * Telephone Encounter - Sariah Diaz OSA - 11/23/2023 9:31 AM EDT Hello- The radiologist discovered an unexpected or indeterminate [facility] ([id number] and asks that you review the following [...] Thank you, GERMANIA Schwartz Client Service Rep [facility] documented in this encounter Plan of Treatment Upcoming Encounters Date Type Department Care Team (Late st Contact Info) Description 12/09/2023 3:20 PM EDT Office Visit Pulmonary Medicine, [facility] 132 [facility] [place] [address] Shiv Mann MD [address] [place] [address] 07/21/2024 8:30 AM EDT Office Visit Family Medicine [address] [place] [phone] Renetta Naidu[address] [place] [address] Health Maintenance Due Date Last Done Comments [...] this encounter Medical Devices Implanted Type Area Insurance Solicitor Device Identifier Shelf Expiration Date Model / Serial / Lot Device Perm Cntrl [id number] - [id number] Implanted:Qty: 2 on 09/30/2014 by Julio Ramírez MD at OR [facility] N/A: Fallopian Tube [employer] 03/02/2016 [id number] / / [id number] Description:Bilateral tubal documented as of this encounter Care Teams Explosive Ordnance Handler Relationship Specialty Start Date End Date Renetta Naidu DO [address] [place] [address] [place] [phone] PCP - General Internal Medicine 11/12/23 documented as of this encounter
--- OUTSIDE RECORDS SUMMARY | 2024-02-08 04:32 | External Medical Summary | Summary of Care ---
Author Name Unknown Organization [facility] [address] [facility] [address] Phone [phone] Care Team Providers Care Band Splitter Name Role Phone Renetta Naidu DO Primary Care Provider Reason for Visit * Reason Onset Date Comments Test Results 11/13/2023 A1A Encounter Details Date Type Department Care Team (Late st Contact Info) Description 11/13/2023 Telephone Pulmonary Medicine, [facility] 132 [facility] [place] [address] Shiv Mann MD [address] [facility] [place] [id number] Test Results (A1A) Allergies No known active allergiesdocumented as of this encounter (statuses as of 11/13/2023) Medications Medication Sig Dispensed Refills Start Date [...] 1 tablet daily 15 Tablet 11/12/2023 Active Hospital, Clinic, or Other Facility Administered [...] as of this encounter (statuses as of 11/13/2023) Active Problems Problem Noted Date Diagnosed Date Bipolar 1 disorder 06/15/2022 Overview: Follows with psychiatry - at [facility] Hyperlipidemia with target LDL less than 100 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 Overview: PFTs reflect more of a restrictive pattern Tobacco use disorder 06/15/2022 documented as of this encounter (statuses as of 11/13/2023) Resolved Problems Problem Noted Date Diagnosed Date Resolved Date Restrictive lung disease 06/15/2022 Depression 05/02/2012 06/15/2022 Generalized anxiety disorder 01/14/2012 06/15/2022 documented as of this encounter (statuses as of 11/13/2023) Immunizations Name Administration Dates Next Due Pneumococcal [...] Telephone Encounter - Cass Cisse LPN - 11/13/2023 7:40 AM EDT ----- Message from Shiv Mann MD sent at 11/12/2023 1:53 PM EDT ----- Lung protective enzyme, Alpha-1 antitrypsin levels are normal/high normal. No interventions needed. Chart note documented in this encounter Plan of Treatment Upcoming Encounters Date Type Department Care Team (Late st Contact Info) Description 11/20/2023 1:30 PM EDT Imaging Radiology [facility] 1st Floor, [address] [place] [address] 11/20/2023 2:00 PM EDT PulmDiagnostic Pulmonary Function Lab, [address] [place] [address] [place], [address] 132 [facility] [place] [address] 12/09/2023 3:20 PM EDT Office Visit Pulmonary Medicine, [address] [place] [address] Shiv Mann MD [address] [facility] [place] [address] 07/21/2024 8:30 AM EDT Office Visit Family Medicine [address] [address] [place] [address] Health Maintenance Due Date Last Done Comments [...] this encounter Medical Devices Implanted Type Area Mat Sewer Device Identifier Shelf Expiration Date Model / Serial / Lot Device Perm Cntrl [id number] - [id number] Implanted:Qty: 2 on 09/30/2014 by Julio Ramírez MD at OR [facility] N/A: Fallopian Tube [employer] 03/02/2016 [id number] / / [id number] Description:Bilateral tubal documented as of this encounter Care Teams Band Splitter Relationship Specialty Start Date End Date Renetta Naidu DO [address] [place] [address] [place] [address] PCP - General Internal Medicine 11/12/23 documented as of this encounter
--- OUTSIDE RECORDS SUMMARY | 2024-02-08 04:32 | External Medical Summary | Summary of Care ---
Author Name Unknown Organization [facility] Address [address] [facility] [address] Phone [phone] Care Team Providers Care Fluid Jet Cutter Operator Name Role Phone Renetta Naidu Primary Care Provider Reason for Referral * Precert (Within 10 days (routine)) - Authorized Specialty Diagnoses / Procedures Referred By Willian t Referred To Contact Radiology Diagnoses Mass of upper lobe of right lung Procedures PET CT SKULL BASE TO MID-THIGH FDG Shiv Mann MD [address] [place] [address] Referral ID Status Reason Start Date Expiration Date V isits Requested Visits Authorized [id number] Authorized 12/02/2023 999 999 Encounter Details Date Type Department Care Team (Late st Contact Info) Description 11/25/2023 Telephone Pulmonary Medicine, [facility] 132 [facility] [place] [address] Shiv Mann MD [address] [place] [phone] Allergies No known active allergiesdocumented as of [...] 7:35 AM EDT 48 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, currently at 1.5 ppd [...] 3:20 PM EDT Office Visit Pulmonary Medicine, [address] [place] [address] Shiv Mann MD [address] [facility] [place] [id number] 07/21/2024 8:30 AM EDT Office Visit Family Medicine [address] [place] [address] [address] [place] [address] Scheduled Orders Name Type Priority Associated Diagnoses [...] encounter Medical Devices Implanted Type Area Hand Ornament Maker Device Identifier Shelf Expiration Date Model / Serial / Lot Device Perm Cntrl [id number] - [id number] Implanted:Qty: 2 on 09/30/2014 by Julio Ramírez MD at OR [facility] N/A: Fallopian Tube [employer] 03/02/2016 [id number] / / [id number] Description:Bilateral tubal documented as of this encounter Visit Diagnoses Diagnosis Mass of upper lobe of right lung- Primary documented in this encounter Care Teams Fluid Jet Cutter Operator Relationship Specialty Start Date End Date Renetta Naidu DO [address] [place] [address] [place] [address] PCP - General Internal Medicine 11/12/23 documented as of this encounter
--- OUTSIDE RECORDS SUMMARY | 2024-02-08 04:32 | External Medical Summary | Summary of Care ---
Author Name Unknown Organization [facility] Address [address] [facility] [place] [address] Phone [phone] Care Team Providers Care Interior Assemblies Installer Name Role Phone Unavailable Primary Care Provider Unavailabl e Encounter Details Date Type Department Care Team (Late st Contact Info) Description 11/05/2023 Orders Only Laboratory [address] [place] [address] Chaparrita Ibarra PA-C [address] [facility] [place] [address] Encounter for long-term (current) use of other medications* Allergies No known active allergiesdocumented as of [...] Description 11/20/2023 1:30 PM EDT Imaging Radiology [facility] 1st Floor, [place] 132 [facility] [place] [address] 11/20/2023 2:00 PM EDT PulmDiagnostic Pulmonary Function Lab, [facility] [address] [place] [address] [place], [address] [place] [address] 12/09/2023 3:20 PM EDT Office Visit Pulmonary Medicine, [facility] 132 [facility] [place] [address] Shiv Mann MD [address] [place] [address] Pending Results Name Type Priority Associated Diagnoses Date /Time GLUCOSE, FASTING PLASMA Lab Routine Encounter for long-term (current) use of other medications 11/05/2023 9:57 AM EDT HEMOGLOBIN A1C Lab Routine Encounter for long-term (current) use of other medications 11/05/2023 9:57 AM EDT LIPID PANEL WITH DIRECT LDL IF TG IS HIGH Lab Routine Encounter for long-term (current) use of other medications 11/05/2023 9:57 AM EDT Scheduled Orders Name Type Priority Associated Diagnoses Orde r Schedule GLUCOSE, FASTING PLASMA Lab Routine Encounter for long-term (current) use of other medications Expected: 11/05/2023, Expires: 11/04/2024 HEMOGLOBIN A1C Lab Routine Encounter for long-term (current) use of other medications Expected: 11/05/2023, Expires: 11/04/2024 LIPID PANEL WITH DIRECT LDL IF TG IS HIGH Lab Routine Encounter for long-term (current) use of other medications Expected: 11/05/2023, Expires: 11/04/2024 Health Maintenance Due Date Last Done Comments [...] this encounter Medical Devices Implanted Type Area Margin Analyst Device Identifier Shelf Expiration Date Model / Serial / Lot Device Perm Cntrl [id number] - [id number] Implanted:Qty: 2 on 09/30/2014 by Julio Ramírez MD at OR [facility] N/A: Fallopian Tube [employer] 03/02/2016 [id number] / / [id number] Description:Bilateral tubal documented as of this encounter Visit Diagnoses Diagnosis Encounter for long-term (current) use of other medications- Primary documented in this encounter
--- OUTSIDE RECORDS SUMMARY | 2024-02-08 04:32 | External Medical Summary | Summary of Care ---
Author Name Unknown Organization [facility] Address [address] [facility] [place] [address] Phone [phone] Care Team Providers Care Casino Cashier Manager Name Role Phone Renetta Naidu Primary Care Provider Reason for Referral * Ancillary Services (Within 10 days (routine)) - Authorized Specialty Diagnoses / Procedures Referred By Willian ceballos Referred To Contact Gastroenterology Diagnoses Dysphagia, unspecified type Paola Chen PA-C [address] [place] [address] [place] [address] Referral ID Status Reason Start Date Expiration Date Visits Requested Visits Authorized [id number] Authorized Ancillary Services Required 11/12/2023 999 999 Question Answer Referral Priority Within 10 days (routine) Where should this appointment be scheduled? [facility] Comments Upper Endoscopy ASGE Guidelines Dysphagia or odynophagia ADDITIONAL INFORMATION 1. Is the patient on Coumadin? No 2. Is the patient on Pradaxa? No Reason for Visit * Reason Comments Acute Encounter Details Date Type Department Care Team (Late st Contact Info) Description 11/12/2023 11:00 AM EDT Office Visit Family Medicine [address] [place] [phone] Paola Chen PA-C [address] [place] [address] [place] [address] Dysphagia, unspecified type*; Acute pain of right shoulder Allergies No known active allergiesdocumented as of this encounter (statuses as of 11/12/2023) Medications Medication Sig Dispensed Refills Start Date [...] as of this encounter (statuses as of 11/12/2023) Active Problems Problem Noted Date Diagnosed Date Bipolar 1 disorder 06/15/2022 Overview: Follows with psychiatry - at [facility] Hyperlipidemia with target LDL less than 100 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 Overview: PFTs reflect more of a restrictive pattern Tobacco use disorder 06/15/2022 documented as of this encounter (statuses as of 11/12/2023) Resolved Problems Problem Noted Date Diagnosed Date Resolved Date Restrictive lung disease 06/15/2022 Depression 05/02/2012 06/15/2022 Generalized anxiety disorder 01/14/2012 06/15/2022 documented as of this encounter (statuses as of 11/12/2023) Immunizations Name Administration Dates Next Due Pneumococcal Polysaccharide PPV23 (Pneumovax) Seasonal Influenza, Trivalen t, (IIV3), with Preserv, (Fluzone) 12/14/2011 TDAP (age 10 and older)(Boostrix) 06/12/2012 documented as of this encounter Social History Tobacco Use Types Packs/Day Years Used Date Smoking Tobacco: Every Day Cigarettes 1 31 Smokeless Tobacco: Never Tobacco Cessation:Ready to Q uit: No; Counseling Given: Not Answered Comments:1 12 ppd. Every day smoker. 10/28/23. Alcohol Use Standard Drinks/Week Comments [...] Sign Reading Time Taken Comments Blood Pressure 120/72 11/12/2023 10:45 AM EDT Pulse 104 11/12/2023 10:45 AM EDT Temperature 36.4 C (97.6 F) 11/12/2023 10:45 AM E DT Respiratory Rate 16 11/12/2023 10:45 AM EDT Oxygen Saturation 99% 11/12/2023 10:45 AM EDT Inhaled Oxygen Concentration - - Weight 68.5 kg (151 lb) 11/12/2023 10:45 AM EDT Height 154.9 cm (5' 1") 11/12/2023 10:45 AM EDT Body Mass Index 28.53 11/12/2023 10:45 AM EDT documented in this encounter Progress Notes * Paola Chen PA-C - 11/12/2023 10:49 AM EDT Nursing Notes: Claudia Bond RN 11/12/23 1041 Sign at exiting of workspace Here for right shoulder pain Pt also gags on foods x 1 year, getting worse, has trouble swallowing meat, etc Pt here today with right shoulder pain for the past 2 months. No injury or doing anything out of the ordinary. Pt has never had issues with this shoulder before. The pain is also at muscles, into neck. Pt denies redness, swelling, bruising, hot to touch. Pt has more pain with movements. Not so muchat rest. Pt denies pain into arm. No numbness/tingling/weakness into arm. Pt has been taking tylenol with some relief. Pt also with issues swallowing. It has been ongoing for about a year but getting worse. Has troublewith solids, moreso. Now, its anything that she eats. Liquids are ok. Pt has some heartburn. Pt denies belching, bloating, abdominal pain, chest pain, SOB, fever, chills, nausea, vomiting. She gags on her food. Review of patient's allergies indicates: No Known Allergies Current Outpatient Medications Medication Sig Dispense Refill lamoTRIgine 100 MG Oral Tablet (LaMICtal) TAKE 1 TABLET BY MOUTH 2 TIME(S) PER DAY Lybalvi 20-10 MG Oral Tablet ONE TABLET BY MOUTH AT BEDTIME FOR MOOD Rosuvastatin Calcium 10 MG Oral Tablet (Crestor) TAKE 1 TABLET BY MOUTH EVERY DAY IN THE MORNING 90Tablet 1 Wasrvbyccnv-Pqputmasm-Uelqav 100-62.5-25 MCG/ACT Aerosol Powder Breath Activated (Trelegy Ellipta) Inhale 1 Puff by mouth in the morning. 180 Blister Dosing Unit 3 Trelegy Ellipta 200-62.5-25 MCG/ACT Aerosol Powder Breath Activated (Odbwqwsyszy-Jjqrxstpixny-Bheioikeok) Inhale 1 Puff by mouth in the morning. 30 Blister Dosing Unit 5 Albuterol Sulfate HFA 108 (90 Base) MCG/ACT Inhalation Aerosol Solution Inhale 2 Puffs by mouth every 4 hours as needed for Wheezing. 18 g 1 Current Facility-Administered Medications Medication Dose Route Frequency Provider Last Rate Last Admin Albuterol Sulfate (Proventil) (5 MG/ML) 0.5% *conc* inhalation solution 2.5 mg 2.5 mg Nebulizer PRN Albuterol Sulfate (Proventil) (2.5 MG/3ML) 0.083% inhalation solution 2.5 mg 2.5 mg Nebulizer PRN Past Medical History: Diagnosis Date Bipolar 1 disorder (HCC) Panic disorder Social History Socioeconomic History Marital status: Single Spouse name: Not on file Number of children: 1 Years of education: Not on file Highest education level: Not on file Occupational History Occupation: unemployed Occupation: Disability for learning disability Tobacco Use Smoking status: Every Day Current packs/day: 1.00 Average packs/day: 1 pack/day for 31.0 years (31.0 ttl pk-yrs) Types: Cigarettes Smokeless tobacco: Never [...] on file Housing Stability: Not on file O:Blood pressure 120/72, pulse 104, temperature 36.4 C (97.6 F), resp. rate 16, height 1.549 m (5' 1"), weight 68.5 kg (151 lb), last menstrual period 02/01/2021, SpO2 99%. GENERAL: alert, healthy, and no distress NECK: supple, no adenopathy EYES: sclera clear HEART: regular rate & rhythm, no murmur, and no gallops LUNGS: chest symmetric with normal AP diameter, no chest deformities noted, no chest wall tenderness, lungs clear to auscultation ABDOMEN: abdomen soft, non-tender EXTREMITIES: right shoulder - no edema, no erythema, no ecchymosis. Mild pain with ROM at shoulder/neck. Pain with palpation at trap muscle. No pain with ROM at neck. A:Dysphagia, unspecified type (Primary) - Pantoprazole Sodium 40 MG Oral Tablet Delayed Release (Protonix); Take 1 Tablet by mouth in the morning. 30 minutes before the first meal of the day. Do not crush, split or chew the tablet. - UPPER ENDOSCOPY GI REFERRAL OP Acute pain of right shoulder - XR SHOULDER, 2 OR MORE VIEWS - predniSONE 20 MG Oral Tablet (Deltasone); 2 tablets daily for 5 days then 1 tablet daily Will start protonix. Will get EGD. Will xray shoulder. Start prednisone. Any questions/problems, please call. If anything changes, worsens, develops new sx, please call [facility]. Follow-up: Return if symptoms worsen or fail to improve. | Check-out note: Needs routine visit withpclexie Chen PA-C documented in this encounter Nursing Notes * Claudia Bond RN - 11/12/2023 10:48 AM EDT Here for right shoulder pain Pt also gags on foods x 1 year, getting worse, has trouble swallowing meat, etc documented in this encounter Plan of Treatment Upcoming Encounters Date Type Department Care Team (Late st Contact Info) Description 11/20/2023 1:30 PM EDT Imaging Radiology [facility] 132 [facility] [place] [address] 11/20/2023 2:00 PM EDT PulmDiagnostic Pulmonary Function Lab, [facility] 132 [facility] [place] [address] [place], [address] [facility] [place] [address] 12/09/2023 3:20 PM EDT Office Visit Pulmonary Medicine, [address] [place] [address] Shiv Mann MD [address] [place] [address] 07/21/2024 8:30 AM EDT Office Visit Family Medicine [address] [place] [address] [place] [address] Pending Results Name Type Priority Associated Diagnoses Date /Time XR SHOULDER, 2 OR MORE VIEWS Medical Imaging Routine Acute pain of right shoulder 11/12/2023 11:13 AM EDT Scheduled Referrals Name Type Priority Associated Diagnoses Orde r Schedule UPPER ENDOSCOPY GI REFERRAL OP Referral Within 10 days (routine) Dysphagia, unspecified type Ordered: 11/12/2023 Health Maintenance Due Date Last Done Comments [...] this encounter Medical Devices Implanted Type Area Avionics System Engineer Device Identifier Shelf Expiration Date Model / Serial / Lot Device Perm Cntrl [id number] - [id number] Implanted:Qty: 2 on 09/30/2014 by Julio Ramírez MD at OR [facility] N/A: Fallopian Tube [employer] 03/02/2016 [id number] / / [id number] Description:Bilateral tubal documented as of this encounter Visit Diagnoses Diagnosis Dysphagia, unspecified type- Primary Acute pain of right shoulder documented in this encounter Care Teams Casino Cashier Manager Relationship Specialty Start Date End Date Renetta Naidu DO [address] [place] [address] [place] [phone] PCP - General Internal Medicine 11/12/23 documented as of this encounter
--- OUTSIDE RECORDS SUMMARY | 2024-02-08 04:32 | External Medical Summary ---
Author Name Unknown Address Unknown Organization [id number]:LABORATORY [facility] [place] - [address] [place] [address] Laboratory Report Ordering Provider Test Date Status CHAD CAMACHO 11/05/2023 09:57:49 Final Observation Date Value Abnormality Reference (Units ) Status MYCODE SPECIMEN-LAV 11/05/2023 09:57:49 Freezing of extracted DNA, whole blood and/or serum. Final Performing Location LABORATORY C - [address] [place] [address]
--- OUTSIDE RECORDS SUMMARY | 2024-02-08 04:32 | External Medical Summary | Summary of Care ---
Author Name Unknown Organization [facility] Address [address] [facility] [address] Phone [phone] Care Team Providers Care Baling Machine Operator Name Role Phone Renetta Naidu DO Primary Care Provider Reason for Visit * Reason Onset Date Comments Appointment 11/12/2023 Upper endoscopy Encounter Details Date Type Department Care Team (Late st Contact Info) Description 11/12/2023 Telephone [address] [place] [address] Paola Chen PA-C [address] [place] [address] [place] [phone] Appointment (Upper endoscopy ) Allergies No known [...] encounter Miscellaneous Notes * Telephone Encounter - Radha Valdez OSA - 11/12/2023 11:38 AM EDT Sarah torres scheduled for upper endoscopy for: Dysphagia, unspecified type [R13.10] - Primary documented in this encounter Plan of Treatment Upcoming Encounters Date Type Department Care Team (Late st Contact Info) Description 11/20/2023 1:30 PM EDT Imaging Radiology [facility] 1st Floor, [address] [place] [address] 11/20/2023 2:00 PM EDT PulmDiagnostic Pulmonary Function Lab, [address] [place] [address] [place], [address] 132 [facility] [place] [address] 12/09/2023 3:20 PM EDT Office Visit Pulmonary Medicine, [address] [place] [address] Shiv Mann MD [address] [facility] [place] [address] 07/21/2024 8:30 AM EDT Office Visit Family Medicine [address] [phone] [address] [place] [address] Health Maintenance Due Date Last Done Comments [...] this encounter Medical Devices Implanted Type Area Photo Offset Printer Device Identifier Shelf Expiration Date Model / Serial / Lot Device Perm Cntrl [id number] - [id number] Implanted:Qty: 2 on 09/30/2014 by Julio Ramírez MD at OR [facility] N/A: Fallopian Tube [employer] 03/02/2016 [id number] / / [id number] Description:Bilateral tubal documented as of this encounter Care Teams Baling Machine Operator Relationship Specialty Start Date End Date Renetta Naidu DO [address] [place] [address] [place] [address] PCP - General Internal Medicine 11/12/23 documented as of this encounter
--- OUTSIDE RECORDS SUMMARY | 2024-02-08 04:32 | External Medical Summary ---
Author Name Unknown Address Unknown Organization [id number]:[facility]ORY [facility] - [address] [place] [address] Laboratory Report Ordering Provider Test Date Status CHAD CAMACHO 11/05/2023 09:57:49 Final Observation Date Value Abnormality Reference (Units ) Status MYCODE SPECIMEN-SST 11/05/2023 09:57:49 Freezing of extracted DNA, whole blood and/or serum. Final Performing Location LABORATORY C - [address] [place] [address]
--- OUTSIDE RECORDS SUMMARY | 2024-02-08 04:32 | External Medical Summary | Summary of Care ---
Author Name Unknown Organization [facility] Address [address] [facility] [address] Phone [phone] Care Team Providers Care Drafter Topographical Name Role Phone Renetta Naidu Primary Care Provider [phone] Reason for Visit * Reason Comments Pulmonary Function Test PFT with broncho dilator Oxygen Assessment 6 minute walk Encounter Details Date Type Department Care Team (Latest Contact Info) Description 11/20/2023 2:00 PM EDT PulmDiagnostic Pulmonary Function Lab, [facility] 132 [facility] [place] [address] [place], [address] [facility] [place] [address] Chronic cough*; Restrictive lung disease Allergies No known active allergiesdocumented as of this encounter (statuses as of 11/20/2023) Medications Medication Sig Dispensed Refills Start Date [...] Active Rosuvastatin Calcium 10 MG Oral Tablet (Crestor)Indicati ons:Dyslipidemia, goal LDL below 160 TAKE 1 TABLET BY MOUTH EVERY DAY IN THE MORNING 90 Tablet 11/14/2023 Active Fluticasone-Umecl idin-Vilant 100-62.5-25 MCG/ACT Aerosol Powder Breath Activated (Trelegy Ellipta) Inhale 1 Puff by mouth in the morning. 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 Overview: PFTs reflect more of a restrictive pattern Tobacco use disorder 06/15/2022 documented as of this encounter (statuses as of 11/20/2023) Resolved Problems Problem Noted Date Diagnosed Date Resolved Date Restrictive lung disease 06/15/2022 Depression 05/02/2012 06/15/2022 Generalized anxiety disorder 01/14/2012 06/15/2022 documented as of this encounter (statuses as of 11/20/2023) Immunizations Name Administration Dates Next Due Pneumococcal [...] Sign Reading Time Taken Comments Blood Pressure - - Pulse - - Temperature - - Respiratory Rate - - Oxygen Saturation - - Inhaled Oxygen Concentration - - Weight 67.6 kg (149 lb) 11/20/2023 2:15 PM EDT Height 156.7 cm (5' 1.7") 11/20/2023 2:15 PM EDT Body Mass Index 27.52 11/20/2023 2:15 PM EDT documented in this encounter Nursing Notes * Ankita Cobb RRT - 11/20/2023 2:18 PM EDT Sarah Ponce was identified by name, Date of : (1975), and . Vitals were obtained for testing. Body mass index is 27.52 kg/m. Pt has a 1.5 ppd for 31 years smoking history and still currently smokes. 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 Spirometry, DLCO, RAW, and TGV performed. A slow volume nebulizer treatment of 0.5ml of albuterol in 3 ml of NSS was given. The proper method of use, as well as anticipated side effects, of this svn are discussed and demonstrated to the patient. Patient demonstrates adequate delivery. Administrations This Visit Albuterol Sulfate (Proventil) (2.5 MG/3ML) 0.083% inhalation solution 2.5 mg Admin Date 11/20/2023 Action Given Dose 2.5 mg Route Nebulizer Documented By Ankita Cobb RRT 6 minute walk Exercise oximetry performed on room air x 6 minutes. Pt ambulated 1530 feet/ 466 meters. No rest periods were required. Lowest SPO2 on room air was 94%. documented in this encounter Plan of Treatment Upcoming Encounters Date Type Department Care Team (Late st Contact Info) Description 12/09/2023 3:20 PM EDT Office Visit Pulmonary Medicine, [facility] [address] [facility] [place] [address] Shiv Mann MD [address] [facility] [place] [phone] 07/21/2024 8:30 AM EDT [address] [place] [phone] Naidu Renetta Mcdaniel, [address] [place] [address] Pending Results Name Type Priority Associated Diagnoses Date /Time SPIROMETRY B/A BRONCHODILATOR Procedures Routine Chronic cough Restrictive lung disease 11/20/2023 1:53 PM EDT DIFFUSION CAPACITY (DLCO) Procedures Routine Chronic cough Restrictive lung disease 11/20/2023 1:53 PM EDT LUNG VOLUMES (PLETHYSMOGRAPHY) Procedures Routine Chronic cough Restrictive lung disease 11/20/2023 1:53 PM EDT Health Maintenance Due Date Last [...] this encounter Medical Devices Implanted Type Area House Servant Device Identifier Shelf Expiration Date Model / Serial / Lot Device Perm Cntrl [id number] - [id number] Implanted:Qty: 2 on 09/30/2014 by Julio Ramírez MD at OR [facility] N/A: Fallopian Tube [employer] 03/02/2016 [id number] / / [id number] Description:Bilateral tubal documented as of this encounter Procedures Procedure Name Priority Date/Time Associated Diagnosis Comments DIFFUSION CAPACITY (DLCO) Routine 2023 1:53 PM EDT Chronic cough Restrictive lung disease LUNG VOLUMES (PLETHYSMOGRAPHY) Routine 11/20/2023 1:53 PM EDT Chronic cough Restrictive lung disease SPIROMETRY B/A BRONCHODILATOR Routine 11/20/2023 1:53 PM EDT Chronic cough Restrictive lung disease documented in this encounter Visit Diagnoses Diagnosis Chronic cough- Primary Cough Restrictive lung disease Other diseases of lung, not elsewhere classified documented in this encounter Administered Medications Active Administered Medications - up to 3 most recent administrations Medication Order MAR Action Action Date Dose Rate Site Albuterol Sulfate (Proventil) (2.5 MG/3ML) 0.083% inhalation solution 2.5 mg 2.5 mg, Nebulizer, PRN Other, ONCE FOR PFT, Starting on 10/28/23 at 1418, Until Sat10/27/24 at 1417, For 365 days Given 11/20/2023 2:18 PM EDT 2.5 mg documented in this encounter Care Teams Drafter Topographical Relationship Specialty Start Date End Date Renetta Naidu DO [address] [place] [address] [place] [address] PCP - General Internal Medicine 11/12/23 documented as of this encounter
--- OUTSIDE RECORDS SUMMARY | 2024-02-08 04:32 | External Medical Summary | Summary of Care ---
Author Name Unknown Organization [facility] Address [address] [facility] [address] Phone [phone] Care Team Providers Care Hair Salon Manager Name Role Phone Renetta Naidu DO Primary Care Provider Reason for Visit * Reason Onset Date Comments Appointment 11/12/2023 Upper endoscopy Encounter Details Date Type Department Care Team (Late st Contact Info) Description 11/12/2023 Telephone Family [address] [place] [address] Paola Chen PA-C [address] [place] [address] [place] [phone] Appointment (Upper endoscopy ) Allergies No known [...] Bocanegra OSA - 11/13/2023 2:28 PM EDT [place] 11/13/2023 2:28 PM * Telephone Encounter - Radha Valdez OSA - 11/12/2023 11:38 AM EDT Sarah torres scheduled for upper endoscopy for: Dysphagia, unspecified type [R13.10] - Primary documented in this encounter Plan of Treatment Upcoming Encounters Date Type Department Care Team (Late st Contact Info) Description 11/20/2023 1:30 PM EDT Imaging [facility] 132 [facility] [place] [address] 11/20/2023 2:00 PM EDT PulmDiagnostic Pulmonary Function Lab, [facility] [address] [facility] [place] [address] [place], [address] [facility] [place] [address] 12/09/2023 3:20 PM EDT Office Visit Pulmonary Medicine, [facility] [address] [facility] [place] [address] Shiv Mann MD [address] [place] [address] 07/21/2024 8:30 AM EDT Office Visit Family Medicine [address] [place] [phone] Renetta Naidu[address] [place] [address] Health Maintenance Due Date Last Done Comments [...] this encounter Medical Devices Implanted Type Area Die Trouble Shooter Device Identifier Shelf Expiration Date Model / Serial / Lot Device Perm Cntr [id number] - [id number] Implanted:Qty: 2 on 09/30/2014 by Julio Ramírez MD at OR [facility] N/A: Fallopian Tube [employer] 03/02/2016 [id number] / / [id number] Description:Bilateral tubal documented as of this encounter Care Teams Hair Salon Manager Relationship Specialty Start Date End Date Renetta Naidu DO [address] [place] [address] [place] [address] PCP - General Internal Medicine 11/12/23 documented as of this encounter
--- OUTSIDE RECORDS SUMMARY | 2024-02-08 04:32 | External Medical Summary ---
Author Name Unknown Address Unknown Organization K01:[facility] - [address] [place] [address] Laboratory Report Ordering Provider Test Date Status ANAELVIE 11/05/2023 09:57:49 Final Observation Date Value Abnormality Reference (Units ) Status HbA1C 11/05/2023 09:57:49 5.6 4.0-5.6 (% ) Final The use of HbA1c to monitor glycemic status is based on normal hemoglobin and HbA composition. This test should not be used in patients with abnormal hemoglobin that affects the half life of the red blood cell or the in vivo glycation rates. Glucose, estimated average 11/05/2023 09:57:49 114 <126 (mg/dL) Final Performing Location [facility] - [address] [place] [address]
--- OUTSIDE RECORDS SUMMARY | 2024-02-08 04:32 | External Medical Summary | Summary of Care ---
Author Name Unknown Organization [facility] Address [address] [facility] [address] Phone [phone] Care Team Providers Care Computer Mechanic Name Role Phone Renetta Naidu DO Primary Care Provider Reason for Visit * Reason Comments eRx-Medication Refill Encounter Details Date Type Department Care Team (Late st Contact Info) Description 11/13/2023 Refill Family Medicine [address] [phone] Renetta Naidu DO [address] [place] [address] [place] [address] Encounter for long-term (current) use of medications*; Dyslipidemia, goal LDL below 160 Allergies No known active allergiesdocumented as of this encounter (statuses as of 11/15/2023) Medications Medication Sig Dispensed Refills Start Date End Date Status lamoTRIgine 100 MG Oral Tablet (LaMICtal) TAKE 1 TABLET BY MOUTH 2 TIME(S) PER DAY 05/04/2020 Active Lybalvi 20-10 MG Oral Tablet ONE TABLET BY MOUTH AT BEDTIME FOR MOOD 04/22/2022 Active Fluticasone-Umecl idin-Vilant 100-62.5-25 MCG/ACT Aerosol Powder [...] IN THE MORNING 90 Tablet 11/14/2023 Active Rosuvastatin Calcium 10 MG Oral Tablet (Crestor)Indicati ons:Dyslipidemia, goal LDL below 160 TAKE 1 TABLET BY MOUTH EVERY DAY IN THE MORNING 90 Tablet 1 04/29/2023 4 Discontinued Hospital, Clinic, or Other Facility Administered [...] as of this encounter (statuses as of 11/15/2023) Active Problems Problem Noted Date Diagnosed Date Bipolar 1 disorder 06/15/2022 Overview: [facility] Hyperlipidemia with target LDL less than 100 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 Overview: PFTs reflect more of a restrictive pattern Tobacco use disorder 06/15/2022 documented as of this encounter (statuses as of 11/15/2023) Resolved Problems Problem Noted Date Diagnosed Date Resolved Date Restrictive lung disease 06/15/2022 Depression 05/02/2012 06/15/2022 Generalized anxiety disorder 01/14/2012 06/15/2022 documented as of this encounter (statuses as of 11/15/2023) Immunizations Name Administration Dates Next Due Pneumococcal [...] encounter Miscellaneous Notes * Telephone Encounter - Isela Castano - 11/15/2023 9:42 PM EDT Received message from [facility] regarding patient needing labs. Patient was notified. Successfully contacted patient and provided [facility] message. * Telephone Encounter - Tawanda Young [facility] - 11/14/2023 9:03 AM EDT Signed Prescriptions: Disp Refills Rosuvastatin Calcium 10 MG Oral Tablet (Cr*90 Tab*0 Sig: TAKE 1 TABLET BY MOUTH EVERY DAY IN THE MORNING Authorizing Provider: JOSE C PRASAD Ordering User: TAWANDA YOUNG * Telephone Encounter - Tawanda Young [facility] - 11/14/2023 9:01 AM EDT Provided 90 days supply with 0 refill(s). Per refill protocol patient should have CMP on file within past year. Reviewed AMP report, Care Gaps/Health Maintenance, medications list, and for any routine labs typically ordered for this patient. Lab orders placed. Please contact patient to advise of labs ordered for blood draw. Recommend patient to fast if able for labs. Patient may still have water and regular medications. Advise to obtain labs before requesting the next refill. Thanks, Tawanda Young, PharmD Clinical Pharmacist [facility] [phone] 11/14/2023, 9:02 AM documented in this encounter Plan of Treatment Upcoming Encounters Date Type Department Care Team (Late st Contact Info) Description 11/20/2023 1:30 PM EDT Imaging Radiology [address] [address] 11/20/2023 2:00 PM EDT PulmDiagnostic Pulmonary Function Lab, [facility] [address] [place] [address] [place], [address] [place] [address] 12/09/2023 3:20 PM EDT Office Visit Pulmonary Medicine, [facility] [address] [place] [address] Shiv Mann MD [address] [place] [address] 07/21/2024 8:30 AM EDT Office Visit Family Medicine [address] [place] [phone] Renetta Naidu[address] [place] [address] Scheduled Orders Name Type Priority Associated Diagnoses Orde r Schedule COMPREHENSIVE METABOLIC PANEL Lab Routine Encounter for long-term (current) use of medications Expected: 11/21/2023 (Approximate), Expires: 11/13/2024 Health Maintenance Due Date Last Done Comments [...] 08/01/2023 07/31/2022, 06/18/2022 COVID-19 Vaccine (1 - 4-25 season) 2023 Influenza Vaccine (FLU shot) (#1) [...] this encounter Medical Devices Implanted Type Area Micro Lab Analyst Device Identifier Shelf Expiration Date Model / Serial / Lot Device Perm Cntrl [id number] - [id number] Implanted:Qty: 2 on 09/30/2014 by Julio Ramírez MD at OR [facility] N/A: Fallopian Tube [employer] 03/02/2016 [id number] / / [id number] Description:Bilateral tubal documented as of this encounter Visit Diagnoses Diagnosis Encounter for long-term (current) use of medications- Primary Encounter for long-term (current) use of other medications Dyslipidemia, goal LDL below 160 Other and unspecified hyperlipidemia documented in this encounter Care Teams Computer Mechanic Relationship Specialty Start Date End Date Renetta Naidu DO [address] [place] [address] [place] [address] PCP - General Internal Medicine 11/12/23 documented as of this encounter
--- OUTSIDE RECORDS SUMMARY | 2024-02-08 04:32 | External Medical Summary | Summary of Care ---
Author Name Unknown Organization [facility] Address [address] [facility] [place] [address] Phone [phone] Care Team Providers Care Hopper Attendant Name Role Phone Renetta Naidu DO Primary Care Provider Encounter Details Date Type Department Care Team (Late st Contact Info) Description 11/18/2023 Orders Only PATIENT PORTAL DO NOT DELETE THIS DEPT USED BY [place] [phone] Allergies No known active allergiesdocumented as of this encounter (statuses as of 11/18/2023) Medications Medication Sig Dispensed Refills Start Date End Date Status lamoTRIgine 100 MG Oral Tablet (LaMICtal) TAKE 1 TABLET BY MOUTH 2 TIME(S) PER DAY 05/04/2020 Active Lybalvi 20-10 MG Oral Tablet ONE TABLET BY MOUTH AT BEDTIME FOR MOOD 04/22/2022 Active Fluticasone-Umeclid in-Vilant 100-62.5-25 MCG/ACT Aerosol Powder [...] as of this encounter (statuses as of 11/18/2023) Active Problems Problem Noted Date Diagnosed Date Bipolar 1 disorder 06/15/2022 Overview: Follows with psychiatry - at [facility] Hyperlipidemia with target LDL less than 100 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 Overview: PFTs reflect more of a restrictive pattern Tobacco use disorder 06/15/2022 documented as of this encounter (statuses as of 11/18/2023) Resolved Problems Problem Noted Date Diagnosed Date Resolved Date Restrictive lung disease 06/15/2022 Depression 05/02/2012 06/15/2022 Generalized anxiety disorder 01/14/2012 06/15/2022 documented as of this encounter (statuses as of 11/18/2023) Immunizations Name Administration Dates Next Due Pneumococcal Polysaccharide PPV23 (Pneumovax) Seasonal Influenza, Trivalen t, (IIV3), with Preserv, (Fluzone) 12/14/2011 TDAP (age 10 and older)(Boostrix) 06/12/2012 documented as of this encounter Social History Tobacco Use Types Packs/Day Years Used Date Smoking Tobacco: Every Day Cigarettes 1 31 Smokeless Tobacco: Never Comments:1 02/19 ppd. [...] Description 11/20/2023 1:30 PM EDT Imaging Radiology [facility] [address] [place] [address] 11/20/2023 2:00 PM EDT PulmDiagnostic Pulmonary Function Lab, [facility] [address] [place] [address] [address], [address] [place] [address] 12/09/2023 3:20 PM EDT Office Visit Pulmonary Medicine, [facility] [address] [place] [address] Shiv Mann MD [address] [place] [address] 07/21/2024 8:30 AM EDT Office Visit Family Medicine [address] [place] [phone] Renetta Naidu[address] [place] [address] Health Maintenance Due Date Last Done Comments [...] encounter Medical Devices Implanted Type Area Stock Dealer Device Identifier Shelf Expiration Date Model / Serial / Lot Device Perm Cntrl [id number] - [id number] Implanted:Qty: 2 on 09/30/2014 by Julio Ramírez MD at OR [facility] N/A: Fallopian Tube [employer] 03/02/2016 [id number] / / [id number] Description:Bilateral tubal documented as of this encounter Care Teams Hopper Attendant Relationship Specialty Start Date End Date Renetta Naidu DO [address] [place] [address] [place] [address] PCP - General Internal Medicine 11/12/23 documented as of this encounter
--- OUTSIDE RECORDS SUMMARY | 2024-02-08 04:33 | External Medical Summary | Summary of Care ---
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 [facility] Primary Reason for Referral? 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 180 Blister Dosing Unit 3 08/27/2023 Active Trelegy Ellipta 200-62.5-25 MCG/ACT Aerosol Powder Breath Activated (Fluticasone-Umec lidinium-Vilanter ol)Indications:Mi xed restrictive and obstructive lung disease (HCC) Inhale 1 Puff by mouth in the morning. 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) 2 tablets daily for 5 days then 1 tablet daily 15 Tablet 08/19/2023 09/25/2023 Discontinue d(Medicatio n List Clean Up) documented as of this encounter (statuses as of 09/25/2023) Active Problems Problem Noted Date Diagnosed Date Bipolar 1 disorder 06/15/2022 Overview: Follows with psychiatry - at [facility] Hyperlipidemia with target LDL less than 100 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 Overview: PFTs reflect more of a restrictive pattern Tobacco use disorder 06/15/2022 documented as of this encounter (statuses as of 09/25/2023) Resolved Problems Problem Noted Date Diagnosed Date Resolved Date Restrictive lung disease 06/15/2022 Depression 05/02/2012 06/15/2022 Generalized anxiety disorder 01/14/2012 06/15/2022 documented as of this encounter (statuses as of 09/25/2023) Immunizations Name Administration Dates Next Due Pneumococcal Polysaccharide PPV23 (Pneumovax) Seasonal Influenza, Split, IIV3, With Preserve, Inj 12/14/2011 TDAP (age 10 and older)(Boostrix) 06/12/2012 documented as of this encounter Social History Tobacco Use Types Packs/Day Years Used Date Smoking Tobacco: Every Day Cigarettes 1 31 Smokeless Tobacco: Never Alcohol Use Standard Drinks/Week Comments Not Currently [...] Sign Reading Time Taken Comments Blood Pressure 100/64 09/25/2023 12:29 PM EDT Pulse 82 09/25/2023 12:29 PM EDT Temperature 36.4 C (97.6 F) 09/25/2023 12:29 PM E DT Respiratory Rate - - Oxygen Saturation 97% 09/25/2023 12:29 PM EDT Inhaled Oxygen Concentration - - Weight 68.6 kg (151 lb 3 oz) 09/25/2023 12:29 PM EDT Height - - Body Mass Index 27.82 06/01/2022 8:58 AM EDT documented in this encounter Progress Notes * aPola Chen PA-C - 09/25/2023 12:29 PM EDT Nursing Notes: Laurie Adams LPN 09/25/23 1229 Sign at exiting of workspace C/o SOB Pt here today with ongoing SOB. Pt does have restrictive lung disease. She was started on trelegy and it was helping. She saw me about a month ago and we tried a course of prednisone. This helped just a little bit. Review of patient's allergies indicates: No Known Allergies Current Outpatient Medications Medication Sig Dispense Refill lamoTRIgine 100 MG Oral Tablet (LaMICtal) TAKE 1 TABLET BY MOUTH 2 TIME(S) PER DAY Lybalvi 20-10 MG Oral Tablet ONE TABLET BY MOUTH AT BEDTIME FOR MOOD Rosuvastatin Calcium 10 MG Oral Tablet (Crestor) TAKE 1 TABLET BY MOUTH EVERY DAY IN THE MORNING 90Tablet 1 Albuterol Sulfate HFA 108 (90 Base) MCG/ACT Inhalation Aerosol Solution TAKE 2 PUFFS BY MOUTH EVERY4 HOURS NEEDED FOR WHEEZE 18 g 1 Wkzwvkbjttf-Fafxzsiun-Kyqlcc 100-62.5-25 MCG/ACT Aerosol Powder Breath Activated (Trelegy Ellipta) Inhale 1 Puff by mouth in the morning. 180 Blister Dosing Unit 3 No current facility-administered medications for this visit. Past Medical History: Diagnosis Date Bipolar 1 [...] ttl pk-yrs) Types: Cigarettes Smokeless tobacco: Never Vaping Use Vaping status: Never Used Substance [...] Housing Stability: Not on file O:Blood pressure 100/64, pulse 82, temperature 36.4 C (97.6 F), temperature source Tympanic, weight 68.6 kg (151 lb 3 oz), last menstrual period 02/01/2021, SpO2 97%. 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 Increase trelegy. Will refer to pulm. Any questions/problems, please call. If anything changes, worsens, develops new sx, please call [facility]. Follow Up: Return if symptoms worsen or fail to improve. 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) Ordered: 09/25/2023 Health Maintenance Due Date Last Done Comments [...] Fecal Occult Blood Test 2021 Sigmoidoscopy 2021 DTaP,Tdap,and Td Vaccines (2 - Td or Tdap) 06/12/2022 06/12/2012 COVID-19 Vaccine (1 - 2022- season) 2022 Mammogram 08/01/2023 07/31/2022, 06/18/2022 Influenza Vaccine (FLU [...] this encounter Medical Devices Implanted Type Area Rotary Veneer Machine Operator Device Identifier Shelf Expiration Date Model / Serial / Lot Device Perm Cntrl [id number] - [id number] Implanted:Qty: 2 on 09/30/2014 by Julio Ramírez MD at OR [facility] N/A: Fallopian Tube [employer] 03/02/2016 [id number] / / [id number] Description:Bilateral tubal documented as of this encounter Visit Diagnoses Diagnosis 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
--- OUTSIDE RECORDS SUMMARY | 2024-02-08 04:33 | External Medical Summary | Summary of Care ---
Author Name Unknown Organization [facility] Address [address] [address] Phone [phone] Care Team Providers Care Payroll Processor Name Role Phone Renetta Naidu DO Primary Care Provider Reason for Visit * Reason Onset Date Comments Medication Problem 08/16/2023 Encounter Details Date Type Department Care Team (Late st Contact Info) Description 08/16/2023 Telephone Family [address] [phone] Paola Chen PA-C [address] [place] [address] [place] [phone] Medication Problem Allergies No known active allergiesdocumented as of this encounter (statuses as of 08/16/2023) Medications Medication Sig Dispensed Refills Start Date End Date Status lamoTRIgine 100 MG Oral Tablet (LaMICtal) TAKE 1 TABLET BY MOUTH 2 TIME(S) PER DAY 05/04/2020 Active Lybalvi 20-10 MG Oral Tablet ONE TABLET BY MOUTH AT BEDTIME FOR MOOD 04/22/2022 Active Fluticasone-Umecli din-Vilant 100-62.5-25 MCG/ACT Aerosol Powder Breath Activated (Trelegy Ellipta) Inhale 1 Puff by mouth in the morning. 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 2 tablets daily for 5 days then 1 tablet daily. 15 Tablet 08/15/2023 08/20/2023 Active documented as of this encounter (statuses as of 08/16/2023) Active Problems Problem Noted Date Diagnosed Date Bipolar 1 disorder 06/15/2022 Overview: [facility] with target LDL less than 100 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 Overview: PFTs reflect more of a restrictive pattern Tobacco use disorder 06/15/2022 documented as of this encounter (statuses as of 08/16/2023) Resolved Problems Problem Noted Date Diagnosed Date Resolved Date Restrictive lung disease 06/15/2022 Depression 05/02/2012 06/15/2022 Generalized anxiety disorder 01/14/2012 06/15/2022 documented as of this encounter (statuses as of 08/16/2023) Immunizations Name Administration Dates Next Due Pneumococcal [...] encounter Miscellaneous Notes * Telephone Encounter - Peggy Mccord PHARM Tech - 08/16/2023 12:48 PM EDT Pharmacy is calling because pt's prescription for prednisone 20 mg was sent with unclear directionsstating "2 sigs". Please clarify the directions for this medication and send a new prescription to [facility]. Thank you, Peggy Mccord, [facility] Manager II [facility]) 08/16/2023,12:49 PM documented in this encounter Plan of Treatment Health Maintenance Due Date Last Done Comments Alpha-1 Antitrypsin 1994 Hepatitis B (1 of 3 - 19+ 3-dose series) [...] Tdap) 06/12/2022 06/12/2012 COVID-19 Vaccine (1 - 2022-24 season) 2022 Mammogram 08/01/2023 07/31/2022, 06/18/2022 Influenza Vaccine (FLU shot) (Season Ended) 2023 12/14/2011 Cologuard 07/05/2025 07/05/2022, 0509/2022, 06/25/2022 Colorectal Cancer Screening 07/05/2025 Diabetes Screening 04/16/2026 04/16/2023, 0 04/16/2023, 08/29/2022, Additional history exists Lipid Panel 04/16/2028 04/16/2023, 08/18, 06/15/2022, Additional history exists GARDASIL-HPV IMMUNIZATION SERIES Aged Out No longer eligible based on patient's age to complete this topic MENINGOCOCCAL (MENACTRA/MENVEO) Aged Out No longer eligible based on patient's age to complete this topic documented as of this encounter Medical Devices Implanted Type Area Chain Tender Device Identifier Shelf Expiration Date Model / Serial / Lot Device Perm Cntrl [id number] - [id number] Implanted:Qty: 2 on 09/30/2014 by Julio Ramírez MD at OR [facility] N/A: Fallopian Tube [employer] 03/02/2016 [id number] / / [id number] Description:Bilateral tubal documented as of this encounter Care Teams Payroll Processor Relationship Specialty Start Date End Date Renetta Naidu DO [address] [place] [address] [place] [id number] PCP - General Internal Medicine 06/15/22 documented as of this encounter
--- OUTSIDE RECORDS SUMMARY | 2024-02-08 04:33 | External Medical Summary | Summary of Care ---
Author Name Unknown Organization [facility] Address [address] [address] Phone [phone] Care Team Providers Care Police Detective Name Role Phone Renetta Naidu DO Primary Care Provider Reason for Visit * Reason Onset Date Comments Advice 08/13/2023 Encounter Details Date Type Department Care Team (Late st Contact Info) Description 08/13/2023 Telephone Family [address] [phone] Renetta Naidu [address] [place] [phone] Advice Allergies No known active allergiesdocumented as of this encounter (statuses as of 08/13/2023) Medications Medication Sig Dispensed Refills Start Date [...] FOR WHEEZE 18 g 1 06/28/2023 Active documented as of this encounter (statuses as of 08/13/2023) Active Problems Problem Noted Date Diagnosed Date Bipolar 1 disorder 06/15/2022 Overview: Follows with psychiatry - at [facility] Hyperlipidemia with target LDL less than 100 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 Overview: PFTs reflect more of a restrictive pattern Tobacco use disorder 06/15/2022 documented as of this encounter (statuses as of 08/13/2023) Resolved Problems Problem Noted Date Diagnosed Date Resolved Date Restrictive lung disease 06/15/2022 Depression 05/02/2012 06/15/2022 Generalized anxiety disorder 01/14/2012 06/15/2022 documented as of this encounter (statuses as of 08/13/2023) Immunizations Name Administration Dates Next Due Pneumococcal [...] encounter Miscellaneous Notes * Telephone Encounter - Claudia Bond RN - 08/13/2023 3:08 PM EDT appt given for 08/15/23 * Telephone Encounter - Renetta Naidu DO - 08/13/2023 12:58 PM EDT Please schedule appt with any provider. * Telephone Encounter - Jay Jay Banda OSA - 08/13/2023 10:41 AM EDT Calling in to get an appt, she says she feels like she is intaking a lot of air and its taking her breathe away and having sometimes difficulty breathing because of it, she states its beeen like thatfor about 3 weeks now. She needs an appt please advice documented in this encounter Plan of Treatment Upcoming Encounters Date Type Department Care Team (Late st Contact Info) Description 08/15/2023 9:40 AM EDT Office Visit Family Medicine [address] [place] [address] Paola Chen PA-C [address] [place] [address] [place] [phone] Health Maintenance Due Date Last Done Comments [...] Td or Tdap) 06/12/2022 06/12/2012 COVID-19 Vaccine ( - season) 2022 Mammogram 08/01/2023 07/31/2022, 06/18/2022 Influenza Vaccine (FLU shot) (Season Ended) 2023 12/14/2011 Cologuard 07/05/2025 07/05/2022, 05/0 09/2022, [...] this encounter Medical Devices Implanted Type Area Email Campaign Specialist Device Identifier Shelf Expiration Date Model / Serial / Lot Device Perm Cntrl [id number] - [id number] Implanted:Qty: 2 on 09/30/2014 by Julio Ramírez MD at OR [facility] N/A: Fallopian Tube [employer] 03/02/2016 [id number] / / [id number] Description:Bilateral tubal documented as of this encounter Care Teams Police Detective Relationship Specialty Start Date End Date Renetta Naidu DO [address] [place] [address] [place] [phone] PCP - General Internal Medicine 4/28/23 documented as of this encounter
--- OUTSIDE RECORDS SUMMARY | 2024-02-08 04:33 | External Medical Summary | Summary of Care ---
Author Name Unknown Organization [facility] Address [address] [facility] [address] Phone [phone] Care Team Providers Care Erosion Control Coordinator Name Role Phone Renetta Naidu DO Primary Care Provider [phone] Reason for Visit * Reason Onset Date Comments Medication Problem 08/16/2023 Encounter Details Date Type Department Care Team (Late st Contact Info) Description 08/16/2023 Telephone Family [address] [phone] Paola Chen PA-C [address] [place] [address] [place] [address] Medication Problem Allergies No known active allergiesdocumented as of this encounter (statuses as of 08/19/2023) Medications Medication Sig Dispensed Refills Start Date [...] as of this encounter (statuses as of 08/19/2023) Active Problems Problem Noted Date Diagnosed Date Bipolar 1 disorder 06/15/2022 [facility]: [facility] with target LDL less than 100 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 Overview: PFTs reflect more of a restrictive pattern Tobacco use disorder 06/15/2022 documented as of this encounter (statuses as of 08/19/2023) Resolved Problems Problem Noted Date Diagnosed Date Resolved Date Restrictive lung disease 06/15/2022 Depression 05/02/2012 06/15/2022 Generalized anxiety disorder 01/14/2012 06/15/2022 documented as of this encounter (statuses as of 08/19/2023) Immunizations Name Administration Dates Next Due Pneumococcal [...] Telephone Encounter - Claudia Bond RN - 08/19/2023 9:48 AM EDT Please change sig for prednisone and resend. You only gave 15 pills, Did you just want pt to use this 3 tabs daily for 5 days? * Telephone Encounter - Peggy Mccord PHARM Tech - 08/16/2023 12:48 PM EDT Pharmacy is calling because pt's prescription for prednisone 20 mg was sent with unclear directionsstating "2 sigs". Please clarify the directions for this medication and send a new prescription to [facility]. Thank you, Peggy Mccord [facility] Home Extension Agent II [facility]) 08/16/2023,12:49 PM [...] Tdap) 06/12/2022 06/12/2012 COVID-19 Vaccine (1 - season) 2022 Mammogram 08/01/2023 07/31/2022, 06/18/2022 [...] this encounter Medical Devices Implanted Type Area Music Adapter Device Identifier Shelf Expiration Date Model / Serial / Lot Device Perm Cntrl [id number] - [id number] Implanted:Qty: 2 on 09/30/2014 by Julio Ramírez MD at OR [facility] N/A: Fallopian Tube [employer] 03/02/2016 [id number] / / [id number] Description:Bilateral tubal documented as of this encounter Care Teams Erosion Control Coordinator Relationship Specialty Start Date End Date Renetta Naidu DO [address] [place] [address] [place] [address] PCP - General Internal Medicine 06/15/22 documented as of this encounter
--- OUTSIDE RECORDS SUMMARY | 2024-02-08 04:33 | External Medical Summary | Summary of Care ---
Author Name Unknown Organization [facility] [address] [facility] [address] Phone [phone] Care Team Providers Care Home School Coordinator Name Role Phone Paola Chen PA-C Primary Care Provider [phone] Reason for Visit * Reason Onset Date Comments Advice 09/19/2023 Encounter Details Date Type Department Care Team (Late st Contact Info) Description 09/19/2023 Telephone Family [address] [place] [address] Paola Chen PA-C [address] [place] [address] [place] [phone] Advice Allergies No known active allergiesdocumented as of this encounter (statuses as of 09/23/2023) Medications Medication Sig Dispensed Refills Start Date [...] Aerosol SolutionIndications :Tobacco use,SOB (shortness of breath) TAKE 2 PUFFS BY MOUTH EVERY 4 HOURS NEEDED FOR WHEEZE 18 g 1 06/28/2023 Active predniSONE 20 MG Oral Tablet (Deltasone)Indicati ons: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 180 Blister Dosing Unit 3 08/27/2023 Active documented as of this encounter (statuses as of 09/23/2023) Active Problems Problem Noted Date Diagnosed Date Bipolar 1 disorder 06/15/2022 Overview: Follows with psychiatry - at [facility] Hyperlipidemia with target LDL less than 100 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 Overview: PFTs reflect more of a restrictive pattern Tobacco use disorder 06/15/2022 documented as of this encounter (statuses as of 09/23/2023) Resolved Problems Problem Noted Date Diagnosed Date Resolved Date Restrictive lung disease 06/15/2022 Depression 05/02/2012 06/15/2022 Generalized anxiety disorder 01/14/2012 06/15/2022 documented as of this encounter (statuses as of 09/23/2023) Immunizations Name Administration Dates Next Due Pneumococcal [...] Telephone Encounter - Claudia Bond RN - 09/23/2023 4:47 PM EDT I left a message on her voice mail and sent a TVTY G. Appt given for tomorrow at 2:40 with vincent hale * Telephone Encounter - Che Walker OSA - 09/19/2023 10:01 AM EDT 1. When were you seen for this problem? 27.24 2. What provider did you see for this problem? Paola Chen 3. What medications are you presently taking? Pt completed Prednisone RX 4. What is it that is no better? Please refer to Call Details. documented in this encounter Plan of Treatment Upcoming Encounters Date Type Department Care Team (Late st Contact Info) Description 09/24/2023 2:40 PM EDT Office Visit Family Medicine [address] [place] [address] Vincent Hale CRNP [address] [place] [address] [place] [address] Health Maintenance Due Date Last Done Comments [...] this encounter Medical Devices Implanted Type Area Photovoltaic Power Systems Engineer Device Identifier Shelf Expiration Date Model / Serial / Lot Device Perm Cntrl [id number] - [id number] Implanted:Qty: 2 on 09/30/2014 by Julio Ramírez MD at OR [facility] N/A: Fallopian Tube [employer] 03/02/2016 [id number] / / [id number] Description:Bilateral tubal documented as of this encounter Care Teams Home School Coordinator Relationship Specialty Start Date End Date Paola Chen PA-C [address] [place] [address] [place] [phone] PCP - General Physician Cigar Maker 09/02/23 documented as of this encounter
--- OUTSIDE RECORDS SUMMARY | 2024-02-08 04:33 | External Medical Summary | Summary of Care ---
Author Name Unknown Organization [facility] [address] [facility] [address] Phone [phone] Care Team Providers Care High School English Teacher Name Role Phone Renetta Naidu DO Primary Care Provider Reason for Visit * Reason Onset Date Comments Advice 08/20/2023 Encounter Details Date Type Department Care Team (Late st Contact Info) Description 08/20/2023 Telephone Family [address] [address] Renetta Naidu [address] [place] [address] Advice Allergies No known active allergiesdocumented as of this encounter (statuses as of 08/20/2023) Medications Medication Sig Dispensed Refills Start Date [...] 1 tablet daily 15 Tablet 08/19/2023 Active documented as of this encounter (statuses as of 08/20/2023) Active Problems Problem Noted Date Diagnosed Date Bipolar 1 disorder 06/15/2022 Overview: [facility] with target LDL less than 100 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 Overview: PFTs reflect more of a restrictive pattern Tobacco use disorder 06/15/2022 documented as of this encounter (statuses as of 08/20/2023) Resolved Problems Problem Noted Date Diagnosed Date Resolved Date Restrictive lung disease 06/15/2022 Depression 05/02/2012 06/15/2022 Generalized anxiety disorder 01/14/2012 06/15/2022 documented as of this encounter (statuses as of 08/20/2023) Immunizations Name Administration Dates Next Due Pneumococcal [...] encounter Miscellaneous Notes * Telephone Encounter - Lanny Larios CMA - 08/20/2023 3:33 PM EDT Patient is aware. * Telephone Encounter - Paola Chen PA-C - 08/20/2023 2:55 PM EDT She is also having breathing issues. She can take the prednisone and stop if she has symptoms. * Telephone Encounter - Tiera Nuñez LPN - 08/20/2023 1:35 PM EDT See Note Below Paola please advise Prednisone started yesterday * Telephone Encounter - Cass Diaz OSA - 08/20/2023 9:11 AM EDT Pt was prescribed Prednisone, but pt's psychiatrist told her that prednisone can give manic episodes. Pt would like to know if she can be prescribe something else. Please contact pt documented in this encounter Plan of Treatment [...] Tdap) 06/12/2022 06/12/2012 COVID-19 Vaccine ( - 2022- season) 2022 Mammogram 08/01/2023 07/31/2022, [...] this encounter Medical Devices Implanted Type Area Assistant Customer Service Manager Device Identifier Shelf Expiration Date Model / Serial / Lot Device Perm Cntrl [id number] - [id number] Implanted:Qty: 2 on 09/30/2014 by Julio Ramírez MD at OR [facility] N/A: Fallopian Tube [employer] 03/02/2016 [id number] / / [id number] Description:Bilateral tubal documented as of this encounter Care Teams High School English Teacher Relationship Specialty Start Date End Date Renetta Naidu DO [address] [place] [address] [place] [phone] PCP - General Internal Medicine 06/15/22 documented as of this encounter
--- OUTSIDE RECORDS SUMMARY | 2024-02-08 04:33 | External Medical Summary | Summary of Care ---
Author Name Unknown Organization [facility] Address [address] [place] [address] Phone [phone] Care Team Providers Care Cold Working Inspector Name Role Phone GordondemetriusPaola PA-C Primary Care Provider [phone]- [phone] Encounter Details Date Type Department Care Team (Late st Contact Info) Description 09/16/2023 Orders Only Outcomes Research Department [address] [place] [address] Shantelle Alonso [facility] Other*[id number] Allergies No known active allergiesdocumented as of this encounter (statuses as of 09/16/2023) Medications Medication Sig Dispensed Refills Start Date [...] as of this encounter (statuses as of 09/16/2023) Active Problems Problem Noted Date Diagnosed Date Bipolar 1 disorder 06/15/2022 Overview: Follows with psychiatry - at [facility] Hyperlipidemia with target LDL less than 100 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 Overview: PFTs reflect more of a restrictive pattern Tobacco use disorder 06/15/2022 documented as of this encounter (statuses as of 09/16/2023) Resolved Problems Problem Noted Date Diagnosed Date Resolved Date Restrictive lung disease 06/15/2022 Depression 05/02/2012 06/15/2022 Generalized anxiety disorder 01/14/2012 06/15/2022 documented as of this encounter (statuses as of 09/16/2023) Immunizations Name Administration Dates Next Due Pneumococcal [...] as of this encounter Plan of Treatment Scheduled Orders Name Type Priority Associated Diagnoses Orde r Schedule MYCODE INITIAL ADULT Lab Routine MyCode Research Other*[id number] Expected: 09/16/2023 (Approximate), Expires: 10/05/2024 Health Maintenance Due Date Last Done Comments [...] Additional history exists Lipid Panel 04/16/2028 04/16/2023, 0703/2022, 06/15/2022, Additional history exists HPV (Gardasil) Vaccine Aged Out No lo nger eligible based on patient's age to complete this topic MENINGOCOCCAL (MENACTRA/MENVEO) Aged Out No longer eligible based on patient's age to complete this topic documented as of this encounter Medical Devices Implanted Type Area Tool Machinist Device Identifier Shelf Expiration Date Model / Serial / Lot Device Perm Cntrl [id number] - [id number] Implanted:Qty: 2 on 09/30/2014 by Julio Ramírez MD at OR [facility] N/A: Fallopian Tube [employer] 03/02/2016 [id number] / / [id number] Description:Bilateral tubal documented as of this encounter Visit Diagnoses Diagnosis MyCode Research Other*[id number] documented in this encounter Care Teams Cold Working Inspector Relationship Specialty Start Date End Date Paola Chen PA-C [address] [place] [address] [place] [id number] PCP - General Physician Quality Control Director 09/02/23 documented as of this encounter
--- OUTSIDE RECORDS SUMMARY | 2024-02-08 04:33 | External Medical Summary | Summary of Care ---
Author Name Unknown Organization [facility] Address [address] [facility] [place] [address] Phone [phone] Care Team Providers Care Automobile Radio Repairer Name Role Phone Unavailable Primary Care Provider Unavailabl e Reason for Referral * Precert (Within 10 days (routine)) - Authorized Specialty Diagnoses / Procedures Referred By Willian t Referred To Contact Radiology Diagnoses Chronic cough Restrictive lung disease Procedures CT CHEST WO CONTRAST Shiv Mann MD [address] [facility] [place] [id number] Referral ID Status Reason Start Date Expiration Date V isits Requested Visits Authorized [id number] Authorized 10/29/2023 999 999 Reason for Visit * Reason Comments NEW PATIENT New pulm . Abnormal PFT. * Evaluate & Treat - Unlimited Visits (Within 10 days (routine)) - Authorized Specialty Diagnoses / Procedures Referred By Willian ceballos Referred To Contact Pulmonary Diseases / Pulmonary Diagnoses Mixed restrictive and obstructive lung disease (HCC) Paola Chen, PA-C [address] [place] [address] [place] [address] Referral ID Status Reason Start Date Expiration Date Visits Requested Visits Authorized [id number] Authorized Specialty Services Required 09/25/[phone] Encounter Details Date Type Department Care Team ([facility] Contact Info) Description 10/28/2023 1:00 PM EDT Office Visit Pulmonary Medicine, [facility] [address] [facility] [place] [address] Shiv Mann MD [address] [place] [address] Dyspnea and respiratory abnormalities*; Chronic cough; Restrictive lung disease Allergies No known active allergiesdocumented as of this encounter (statuses as of 10/28/2023) Medications Medication Sig Dispensed Refills Start Date [...] FOR WHEEZE 18 g 1 06/28/2023 Active Fluticasone-Umeclid in-Vilant 100-62.5-25 MCG/ACT Aerosol Powder Breath Activated (Trelegy Ellipta) Inhale 1 Puff by mouth in the morning. 180 Blister Dosing Unit 3 08/27/2023 Active Trelegy Ellipta 200-62.5-25 MCG/ACT Aerosol Powder Breath Activated (Fluticasone-Umecli dinium-Vilanterol)I ndications: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 Overview: PFTs reflect more of a restrictive pattern Tobacco use disorder 06/15/2022 documented as of this encounter (statuses as of 10/28/2023) Resolved Problems Problem Noted Date Diagnosed Date Resolved Date Restrictive lung disease 06/15/2022 Depression 05/02/2012 06/15/2022 Generalized anxiety disorder 01/14/2012 06/15/2022 documented as of this encounter (statuses as of 10/28/2023) Immunizations Name Administration Dates Next Due Pneumococcal Polysaccharide PPV23 (Pneumovax) Seasonal Influenza, Trivalen t, (IIV3), with Preserv, (Fluzone) 12/14/2011 TDAP (age 10 and older)(Boostrix) 06/12/2012 documented as of this encounter Social History Tobacco Use Types Packs/Day Years Used Date Smoking Tobacco: Every Day Cigarettes 1 31 Smokeless Tobacco: Never Tobacco Cessation:Ready to Q uit: Not Asked; Counseling Given: Not Answered Comments:1 1/2 ppd. Every day smoker. 10/28/23. Alcohol Use [...] Sign Reading Time Taken Comments Blood Pressure 108/80 10/28/2023 1:41 PM EDT Pulse 98 10/28/2023 1:41 PM EDT Temperature 36 C (96.8 F) 10/28/2023 1:41 PM EDT Respiratory Rate 16 10/28/2023 1:41 PM EDT Oxygen Saturation 94% 10/28/2023 1:43 PM EDT ra-amb Inhaled Oxygen Concentration - - Weight 69.4 kg (153 lb) 10/28/2023 1:41 PM EDT Height 154.9 cm (5' 1") 10/28/2023 1:41 PM EDT Body Mass Index 28.91 10/28/2023 1:41 PM EDT documented in this encounter Progress Notes * Shiv Mann MD - 10/28/2023 1:56 PM EDT Images from the original note were not included. 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 CXR 04/2022: WNL Assessment: Restrictive lung disease, noted on PFT, without evidence of I LD COPD risk factors as noted Plan: Smoking cessation A1AT screening HRCT chest PFT with Lung volumes and DLCO 6 MWT F/u 6 weeks Follow Up: Return in about 6 weeks (around 12/09/2023) for Clinic Visit. 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 CXR 04/2022: WNL Assessment: Restrictive lung disease, noted on PFT, without evidence of I LD COPD risk factors as noted Plan: Smoking cessation A1AT screening HRCT chest PFT with Lung volumes and DLCO 6 MWT F/u 6 weeks Shiv Mann MD Subjective CC: Chief Complaint Patient presents with NEW PATIENT New pulm . Abnormal PFT. HPI: Nursing Notes: Bernice Membreno LPN 10/28/23 1345 Signed Chief Complaint Patient presents with NEW PATIENT New pulm . Abnormal PFT. Interm History/Respiratory Symptoms Cough: yes-thick yellow phlegm Hemoptysis: no Sinus Symptoms: no Hospitalizations: no ED Trips: no Triggers: no Nocturnal: sleeps with head elevated CPAP/BiPAP/O2: no DME Supplier: no Flu Vaccine: 2022 Pneumovax: 2012 Prevnar:none COVID 19: x2. MMRC Dyspnea Scale = 4 (I am too breathless to leave the house or I am breathless when dressing) Objective Filed Vitals: 10/28/23 1341 10/28/23 1343 BP: 108/80 Pulse: 98 Resp: 16 Temp: 36 C (96.8 F) TempSrc: Tympanic SpO2: 95% 94% Weight: 69.4 kg (153 lb) Height: 1.549 m (5' 1") Exam: Const: No signs of acute distress present. Head/Face: Normal on inspection. Eyes: Conjunctivae clear. Pupils equal round and reactive to light. ENMT: Oropharynx: No erythema, exudate or masses. Posterior pharynx is normal. Neck: Supple and symmetric. Resp: Respiratory examination as outlined above CV: Rate is regular. Rhythm is regular. No heart murmur appreciated. Extremities: No edema of the lower limbs bilaterally. Skin: Skin is warm and dry. Neuro: Coordination normal. No involuntary movement. Psych: Patient's attitude is cooperative. Mood is normal. Affect is normal. Tests reviewed with the patient: No imaging results in the last 6 months Available Radiologic data was reviewed by me in PACS. The images were shown to the patient and findings were discussed with the patient. HOME MEDICATIONS: Trelegy Ellipta 200-62.5-25 MCG/ACT Aerosol Powder Breath Activated (Qolwtmyqwhi-Xhlleiuugurc-Bymmkwadoy) Xrxwzkacxmx-Tivuhqwun-Tscflc 100-62.5-25 MCG/ACT Aerosol Powder Breath Activated (Trelegy Ellipta) Albuterol Sulfate HFA 108 (90 Base) MCG/ACT Inhalation Aerosol Solution Rosuvastatin Calcium 10 MG Oral Tablet (Crestor) Lybalvi 20-10 MG Oral Tablet lamoTRIgine 100 MG Oral Tablet (LaMICtal) Albuterol Sulfate (Proventil) (2.5 MG/3ML) 0.083% inhalation solution 2.5 mg Albuterol Sulfate (Proventil) (5 MG/ML) 0.5% *conc* inhalation solution 2.5 mg ROS: No reported history of Hemoptysis, Hematemesis, Melena No reported history of Dysuria, Hematuria, Flank Pain No reported history of chronic headache, seizures No reported history of Fall or trauma . No reported history of recent change in weight or appetite. Past Medical History: Diagnosis Date Bipolar 1 disorder (HCC) Panic disorder Past Surgical History: Procedure Laterality Date BREAST BIOPSY Left 2017 benign HYSTEROSCOPY W/FALLOPIAN IMPLANTS N/A 09/30/2014 HYSTEROSCOPY SURGICAL BILATERAL FALLOPIAN TUBE performed by Julio Ramírez MD at OR [facility] INFORMATION cyst removal on chest. REMOVE GALLBLADDER Social History Socioeconomic History Marital status: Single Number of children: 1 Occupational History Occupation: unemployed Occupation: Disability for [...] Yes Partners: Male control/protection: Injection Comment: depo Social Determinants of Health Social Connections Family History Problem Relation Name Age of Onset Lung Disorder Mother Other (Hyperlipidemia [Other]) Mother Hypertension Father No Past Hx Sister No Past Hx Sister No Past Hx Sister No Past Hx Sister No Past Hx Sister Breast Cancer Grandmother (Maternal) Review of patient's allergies indicates: No Known Allergies documented in this encounter Nursing Notes * Bernice Membreno LPN - 10/28/2023 1:43 PM EDT Chief Complaint Patient presents with NEW PATIENT New pulm . Abnormal PFT. Interm History/Respiratory Symptoms Cough: yes-thick yellow phlegm Hemoptysis: no Sinus Symptoms: no Hospitalizations: no ED Trips: no Triggers: no Nocturnal: sleeps with head elevated CPAP/BiPAP/O2: no DME Supplier: no Flu Vaccine: 2022 Pneumovax: 2012 Prevnar:none COVID 19: x2. MMRC Dyspnea Scale = 4 (I am too breathless to leave the house or I am breathless when dressing) documented in this encounter Plan of Treatment Upcoming Encounters Date Type Department Care Team (Late st Contact Info) Description 11/20/2023 1:30 PM EDT Imaging Radiology [facility] 1st Floor, [place] [address] [facility] [place] [address] 11/20/2023 2:00 PM EDT PulmDiagnostic Pulmonary Function Lab, [facility] [address] [facility] [place] [address] [place], [address] [place] [address] 11/20/2023 2:30 PM EDT PulmDiagnostic Pulmonary Function Lab, [facility] [address] [facility] [place] [address] [place], [address] [facility] [place] [address] 12/09/2023 3:20 PM EDT Office Visit Pulmonary Medicine, [facility] [address] [facility] [place] [address] Shiv Mann MD [address] [place] [address] Scheduled Orders Name Type Priority Associated Diagnoses Order Schedule [id number], QN Lab Routine Chronic cough Restrictive lung disease Expected: 10/28/2023, Expires: 10/27/2024 SPIROMETRY B/A BRONCHODILATOR Procedures Routine Chronic cough Restrictive lung disease Expected: 11/04/2023, Expires: 11/26/2024 DIFFUSION CAPACITY (DLCO) Procedures Routine Chronic cough Restrictive lung disease Expected: 11/04/2023, Expires: 11/26/2024 LUNG VOLUMES (PLETHYSMOGRAPHY) Procedures Routine Chronic cough Restrictive lung disease Expected: 11/04/2023, Expires: 11/26/2024 PULMONARY STRESS TESTING Procedures Routine Chronic cough Restrictive lung disease Expected: 10/29/2023, Expires: 11/26/2024 CT CHEST WO CONTRAST Medical Imaging Routine Chronic cough Restrictive lung disease Expected: 10/29/2023, Expires: 11/26/2024 Health Maintenance Due Date Last Done Comments [...] 08/01/2023 07/31/2022, 06/18/2022 COVID-19 Vaccine (1 - 2023-24 season) 2023 Influenza Vaccine (FLU shot) (#1) [...] this encounter Medical Devices Implanted Type Area Dolly Driver Device Identifier Shelf Expiration Date Model / Serial / Lot Device Perm Cntr [id number] - [id number] Implanted:Qty: 2 on 09/30/2014 by Julio Ramírez MD at OR [facility] N/A: Fallopian Tube [employer] 03/02/2016 [id number] / / [id number] Description:Bilateral tubal documented as of this encounter Visit Diagnoses Diagnosis Dyspnea and respiratory abnormalities- Primary Other dyspnea and respiratory abnormality Chronic cough Cough Restrictive lung disease Other diseases of lung, not elsewhere classified documented in this encounter
--- OUTSIDE RECORDS SUMMARY | 2024-02-08 04:33 | External Medical Summary | Summary of Care ---
Author Name Unknown Organization [facility] [address] [facility] [address] Phone [phone] Care Team Providers Care Manager Concrete Name Role Phone Karl Lobo DO Primary Care Provider Encounter Details Date Type Department Care Team (Late st Contact Info) Description 08/27/2023 Refill Family Medicine [address] [address] Karl Lobo [address] [place] [phone] Allergies No known active allergiesdocumented as of this encounter (statuses as of 08/27/2023) Medications Medication Sig Dispensed Refills Start Date [...] 06/28/2023 Active predniSONE 20 MG Oral Tablet (Deltasone)Indica tions:Mixed restrictive and obstructive lung disease (HCC) 2 tablets daily for 5 days then 1 tablet daily 15 Tablet 08/19/2023 Active Fluticasone-Umecl idin-Vilant 100-62.5-25 MCG/ACT Aerosol Powder Breath Activated (Trelegy Ellipta) Inhale 1 Puff by mouth in the morning. 180 Blister Dosing Unit 3 08/27/2023 Active Fluticasone-Umecl idin-Vilant 100-62.5-25 MCG/ACT Aerosol Powder Breath Activated (Trelegy Ellipta) Inhale 1 Puff by mouth in the morning. 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 Overview: PFTs reflect more of a restrictive pattern Tobacco use disorder 06/15/2022 documented as of this encounter (statuses as of 08/27/2023) Resolved Problems Problem Noted Date Diagnosed Date Resolved Date Restrictive lung disease 06/15/2022 Depression 05/02/2012 06/15/2022 Generalized anxiety disorder 01/14/2012 06/15/2022 documented as of this encounter (statuses as of 08/27/2023) Immunizations Name Administration Dates Next Due Pneumococcal [...] Telephone Encounter - Karl Lobo DO - 08/27/2023 4:24 PM EDTSigned Prescriptions: Disp Refills Nyjuqnvnoqm-Wdxwxdjkl-Yjxjgk 100-62.5-25 M*180 Bl*3 Sig: Inhale 1 Puff by mouth in the morning.Authorizing Provider: KARL LOBO * Telephone Encounter - Claudia Bond RN - 08/27/2023 4:15 PM EDTPending Prescriptions: Disp Refills Yxhxgmeiktq-Jpsefellw-Kjtbtz 100-62.5-25 M*180 Bl*3 Sig: Inhale 1 Puff by mouth in the morning. * Telephone Encounter - Maddie Holder OSA - 08/27/2023 3:30 PM EDT Did you pend patient's preferred pharmacy and medication before forwarding?yes Pharmacy: [id number] [id number] [facility] Pending Prescriptions: Disp Refills Npneketzyqk-Hnyxexzmt-Jbpttg 100-62.5-25 *60 Bli*5 Sig: Inhale 1 Puff by mouth in the morning. Last Visit: 08/15/2023 (in office), Visit date not found (telemedicine) Next Visit: Visit date not found If no future appointments scheduled, and last appointment is greater than a year ago, please schedule patient for a follow-up appointment Last date the medication was ordered: 12.25.22 Is this request for a controlled substance?No Urine Drug Screen:No results found for this or any previous visit. Patient Phone Numbers Labs: Lab Results Component Value Date/Time CREAT 1.1 (H) 02/21/2022 11:46 AM CREAT 1.0 09/28/2019 09:12 AM POTASSIUM 4.6 02/21/2022 11:46 AM POTASSIUM 4.0 09/28/2019 09:12 AM LDLCALC 68 04/16/2023 08:51 AM LDLCALC 142 (H) 09/28/2019 09:12 AM LDLDIRECT NOT APPLICABLE 05/08/2012 07:55 AM ALT 36 (H) 06/15/2022 03:11 PM ALT 21 10/13/2013 12:00 AM HGBA1C 5.4 04/16/2023 08:51 AM HGBA1C 5.1 09/28/2019 09:12 AM documented [...] this encounter Medical Devices Implanted Type Area Gemologist Device Identifier Shelf Expiration Date Model / Serial / Lot Device Perm Cntrl [id number] - [id number] Implanted:Qty: 2 on 09/30/2014 by Julio Ramírez MD at OR [facility] N/A: Fallopian Tube [employer] 03/02/2016 [id number] / / [id number] Description:Bilateral tubal documented as of this encounter Care Teams Manager Concrete Relationship Specialty Start Date End Date Karl Lobo DO [address] [place] [address] [place] [address] PCP - General Internal Medicine 06/15/22 documented as of this encounter
--- OUTSIDE RECORDS SUMMARY | 2024-02-08 04:33 | External Medical Summary | Summary of Care ---
Author Name Unknown Organization [facility] [address] [facility] [address] Phone [phone] Care Team Providers Care Coatings Inspector Name Role Phone Renetta Naidu DO Primary Care Provider Reason for Visit * Reason Onset Date Comments Medication Problem 08/16/2023 Encounter Details Date Type Department Care Team (Late st Contact Info) Description 08/16/2023 Telephone Family [address] [phone] Jose C Prasad PA-C [address] [place] [address] [place] [id number] Medication Problem Allergies No known active allergiesdocumented [...] 1 tablet daily 15 Tablet 08/19/2023 Active predniSONE 20 MG Oral Tablet (Deltasone)Indica tions:Mixed restrictive and obstructive lung disease (HCC) Take 3 Tablets by mouth in the morning for 5 days. 2 tablets daily for 5 days then 1 tablet daily. 15 Tablet 08/15/2023 08/19/2023 Discontinue d(Refill) documented as of this encounter (statuses as of 08/19/2023) Active Problems Problem Noted Date Diagnosed Date Bipolar 1 disorder 06/15/2022 Overview: [facility] Hyper[facility] with target LDL less than 100 [...] encounter Miscellaneous Notes * Addendum Note - Jose C Prasad PA-C - 08/19/2023 2:27 PM EDTAddended by: JOSE C PRASAD on: 08/19/2023 02:27 PM Modules accepted: Orders * Telephone Encounter - Jose C Prasad PA-C - 08/19/2023 2:26 PM EDT New script sent. * Telephone Encounter - Renetta Naidu DO - 08/19/2023 11:30 AM EDT Jose C - can you clarify script? It looks like you saw her for this. * Telephone Encounter - Claudia Bnod RN - 08/19/2023 9:48 AM EDT Please [...] medication and send a new prescription to [facility]. Thank you, Peggy Mccord, [facility] [employer] II [facility]) 08/16/2023,12:49 [...] this encounter Medical Devices Implanted Type Area Wood Chopper Device Identifier Shelf Expiration Date Model / Serial / Lot Device Perm Cntrl [id number] - [id number] Implanted:Qty: 2 on 09/30/2014 by Julio Ramírez MD at OR [facility] N/A: Fallopian Tube [employer] 03/02/2016 [id number] / / [id number] Description:Bilateral tubal documented as of this encounter Visit Diagnoses Diagnosis 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 Care Teams Coatings Inspector Relationship Specialty Start Date End Date Renetta Naidu DO [address] [place] [address] [place] [id number] PCP - General Internal Medicine 06/15/22 documented as of this encounter
--- OUTSIDE RECORDS SUMMARY | 2024-02-08 04:33 | External Medical Summary | Summary of Care ---
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)* Allergies No known active allergiesdocumented as of this encounter (statuses as of 08/15/2023) Medications Medication Sig Dispensed Refills Start Date [...] as of this encounter (statuses as of 08/15/2023) Active Problems Problem Noted Date Diagnosed Date Bipolar 1 disorder 06/15/2022 Overview: [facility] Hyperlipidemia with target LDL less than 100 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 Overview: PFTs reflect more of a restrictive pattern Tobacco use disorder 06/15/2022 documented as of this encounter (statuses as of 08/15/2023) Resolved Problems Problem Noted Date Diagnosed Date Resolved Date Restrictive lung disease 06/15/2022 Depression 05/02/2012 06/15/2022 Generalized anxiety disorder 01/14/2012 06/15/2022 documented as of this encounter (statuses as of 08/15/2023) Immunizations Name Administration Dates Next Due Pneumococcal [...] Sign Reading Time Taken Comments Blood Pressure 108/60 08/15/2023 9:32 AM EDT Pulse 84 08/15/2023 9:32 AM EDT Temperature 35.9 C (96.7 F) 08/15/2023 9:32 AM ED T Respiratory Rate - - Oxygen Saturation 98% 08/15/2023 9:32 AM EDT Inhaled Oxygen Concentration - - Weight 69.9 kg (154 lb) 08/15/2023 9:32 AM EDT Height - - Body Mass Index 28.34 06/01/2022 8:58 AM EDT documented in this encounter Progress Notes * Paola Chen PA-C - 08/15/2023 9:35 AM EDT Nursing Notes: Tiera Nuñez LPN 08/15/23 0934 Signed Chief Complaint Patient presents with Acute Feeling More SOB SPO2 98% RA Smoker Denies Fevers or cold symptoms Albuterol helps at times Trelegy not Helping The patient has been properly identified by confirmation of name and date of . Pt here today with SOB for the past 2 weeks. Pt was to see me last year. We started on advair. PFT came back and was switched to trelegy. She is doing well with the trelegy. Taking proair as needed. She has some increased wheezing. She is still a smoker. Pulse ox ok at 98%. Pt denies fever, chills,cough worse than normal, URI sx, allergy/sinus sx. Review of patient's allergies indicates: No Known Allergies Current Outpatient Medications Medication Sig Dispense Refill lamoTRIgine 100 MG Oral Tablet (LaMICtal) TAKE 1 TABLET BY MOUTH 2 TIME(S) PER DAY Lybalvi 20-10 MG Oral Tablet ONE TABLET BY MOUTH AT BEDTIME FOR MOOD Qtntrekrrue-Usvwolggh-Cdtiri 100-62.5-25 MCG/ACT Aerosol Powder Breath Activated (Trelegy Ellipta) Inhale 1 Puff by mouth in the morning. 60 Blister Dosing Unit 5 Rosuvastatin Calcium 10 MG Oral Tablet (Crestor) TAKE 1 TABLET BY MOUTH EVERY DAY IN THE MORNING 90Tablet 1 Albuterol Sulfate HFA 108 (90 Base) MCG/ACT Inhalation Aerosol Solution TAKE 2 PUFFS BY MOUTH EVERY4 HOURS NEEDED FOR WHEEZE 18 g 1 No current facility-administered medications for this visit. [...] Housing Stability: Not on file O:Blood pressure 108/60, pulse 84, temperature 35.9 C (96.7 F), temperature source Tympanic, weight 69.9 kg (154 lb), last menstrual period 02/01/2021, SpO2 98%. 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 2 tablets daily for 5 days then 1 tablet daily. Try course of prednisone. Any questions/problems, please call. If anything changes, worsens, develops new sx, please call [facility]. Follow Up: Return if symptoms worsen or fail to improve. Paola Chen PA-C documented in this encounter Nursing Notes * Tiera Nuñez LPN - 08/15/2023 9:31 AM EDT Chief Complaint Patient presents with Acute Feeling More SOB SPO2 98% RA Smoker Denies Fevers or cold symptoms Albuterol helps at times Trelegy not Helping The patient has been properly identified by confirmation of name and date of . 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
--- OUTSIDE RECORDS SUMMARY | 2024-02-08 04:33 | External Medical Summary | Summary of Care ---
Author Name Unknown Organization [facility] Address [address] [facility] [address] Phone [phone] Care Team Providers Care Cns Name Role Phone Renetta Naidu DO Primary Care Provider [phone] Reason for Visit * Reason Onset Date Comments Medication Problem 08/16/2023 Encounter Details Date Type Department Care Team (Late st Contact Info) Description 08/16/2023 Telephone Family [address] [phone] Paola Chen PA-C [address] [place] [address] [place] [id number] Medication Problem Allergies No known active allergiesdocumented [...] 06/15/2022 Overview: [facility] with target LDL less [...] Miscellaneous Notes * Telephone Encounter - Renetta Naidu DO - 08/19/2023 11:30 AM EDT Paola - can you clarify script? It looks like you saw her for this. * Telephone Encounter - Claudia Bond RN [...] medication and send a new prescription to [facility]. Thank you, Peggy Mccord, [facility] Wool Hanker II [facility]) 08/16/2023,12:49 PM [...] or Tdap) 06/12/2022 06/12/2012 COVID-19 Vaccine ( season) 2022 Mammogram 08/01/2023 07/31/2022, 06/18/2022 Influenza [...] this encounter Medical Devices Implanted Type Area Mechanical Maintenance Supervisor Device Identifier Shelf Expiration Date Model / Serial / Lot Device Perm Cntrl [id number] - [id number] Implanted:Qty: 2 on 09/30/2014 by Julio Ramírez MD at OR [facility] N/A: Fallopian Tube [employer] 03/02/2016 [id number] / / [id number] Description:Bilateral tubal documented as of this encounter Care Teams Cns Relationship Specialty Start Date End Date Renetta Naidu DO [address] [place] [address] [place] [phone] PCP - General Internal Medicine 06/15/22 documented as of this encounter
--- OUTSIDE RECORDS SUMMARY | 2024-02-08 04:33 | External Medical Summary | Summary of Care ---
Author Name Unknown Organization [facility] Address [address] [facility] [address] Phone [phone] Care Team Providers Care Trading Analyst Name Role Phone Unavailable Primary Care Provider Unavailabl e Reason for Visit * Reason Onset Date Comments Medication Refill 10/30/2023 Encounter Details Date Type Department Care Team (Late st Contact Info) Description 10/30/2023 Refill Family Medicine [address] [phone] [address] [place] [address] Tobacco use; SOB (shortness of breath) Allergies No known active allergiesdocumented as of this encounter (statuses as of 10/30/2023) Medications Medication Sig Dispensed Refills Start Date [...] THE MORNING 90 Tablet 1 04/29/2023 Active Fluticasone-Umecl idin-Vilant 100-62.5-25 MCG/ACT Aerosol Powder [...] for Wheezing. 18 g 1 10/30/2023 Active Albuterol Sulfate HFA 108 (90 Base) MCG/ACT Inhalation Aerosol SolutionIndicatio ns:Tobacco use,SOB (shortness of breath) TAKE 2 PUFFS BY MOUTH EVERY 4 HOURS NEEDED FOR WHEEZE 18 g 1 06/28/2023 10/30/2023 Discontinue d(Refill) Hospital, Clinic, or Other Facility Administered Medication [...] as of this encounter (statuses as of 10/30/2023) Active Problems Problem Noted Date Diagnosed Date Bipolar 1 disorder 06/15/2022 Overview: Follows with psychiatry - at [facility] Hyperlipidemia with target LDL less than 100 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 Overview: PFTs reflect more of a restrictive pattern Tobacco use disorder 06/15/2022 documented as of this encounter (statuses as of 10/30/2023) Resolved Problems Problem Noted Date Diagnosed Date Resolved Date Restrictive lung disease 06/15/2022 Depression 05/02/2012 06/15/2022 Generalized anxiety disorder 01/14/2012 06/15/2022 documented as of this encounter (statuses as of 10/30/2023) Immunizations Name Administration Dates Next Due Pneumococcal [...] encounter Miscellaneous Notes * Telephone Encounter - Jose C Prasad PA-C - 10/30/2023 2:28 PM EDTSigned Prescriptions: Disp Refills Albuterol Sulfate HFA 108 (90 Base) MCG/AC*18 g 1 Sig: Inhale 2 Puffs by mouth every 4 hours as needed for Wheezing. Authorizing Provider: JOSE C PRASAD * Telephone Encounter - Haleigh Quezada LPN - 10/30/2023 12:14 PM EDTPending Prescriptions: Disp Refills Albuterol Sulfate HFA 108 (90 Base) MCG/AC*18 g 1 Sig: Inhale 2 Puffs by mouth every 4 hours as needed for Wheezing. * Telephone Encounter - Tiffanie Arroyo OSA - 10/30/2023 9:42 AM EDT Did you pend patient's preferred pharmacy and medication before forwarding?yes Pharmacy: [id number] [id number] [facility] Pending Prescriptions: Disp Refills Albuterol Sulfate HFA 108 (90 Base) MCG/A*18 g 1 Last Visit: 09/25/2023 (in office), Visit date not found (telemedicine) Next Visit: Visit date not found If no future appointments scheduled, and last appointment is greater than a year ago, please schedule patient for a follow-up appointment Last date the medication was ordered: 08/13/23 Is this request for a controlled substance?No Urine Drug Screen:No results found for this or any previous visit. Patient Phone Numbers Labs: Lab Results Component Value Date/Time CREAT 1.1 (H) 02/21/2022 11:46 AM CREAT 1.0 09/28/2019 09:12 AM POTASSIUM 4.6 02/21/2022 11:46 AM POTASSIUM 4.0 09/28/2019 09:12 AM LDL 68 04/16/2023 08:51 AM LDL 142 (H) 09/28/2019 09:12 AM LDLCALC 119 (A) 05/03/2014 12:00 AM ALT 36 (H) 06/15/2022 03:11 PM ALT 21 10/13/2013 12:00 AM HGBA1C 5.4 04/16/2023 08:51 AM HGBA1C 5.1 09/28/2019 09:12 AM documented in this encounter Plan of Treatment Upcoming Encounters Date Type Department Care Team (Late st Contact Info) Description 11/20/2023 1:30 PM EDT [facility] [address] [facility] [place] [address] 11/20/2023 2:00 PM EDT PulmDiagnostic Pulmonary Function Lab, [facility] [address] [facility] [place] [address] [place], [address] [facility] [place] [address] 12/09/2023 3:20 PM EDT Office Visit Pulmonary Medicine, [facility] [address] [facility] [place] [address] Shiv Mann MD [address] [place] [address] Health Maintenance Due Date Last Done Comments [...] this encounter Medical Devices Implanted Type Area Metal Mover Device Identifier Shelf Expiration Date Model / Serial / Lot Device Perm Cntrl [id number] - [id number] Implanted:Qty: 2 on 09/30/2014 by Julio Ramírez MD at OR [facility] N/A: Fallopian Tube [employer] 03/02/2016 [id number] / / [id number] Description:Bilateral tubal documented as of this encounter Visit Diagnoses Diagnosis Tobacco use Tobacco use disorder SOB (shortness of breath) Shortness of breath documented in this encounter
[2024-02-08] MEDS: AZITHROMYCIN 250 MG TAB PO SCH (08:28)
[2024-02-08] MEDS: FOLIC ACID 1 MG TAB PO SCH (08:28)
[2024-02-08] MEDS ORDERED: NON-FORMULARY MEDICATION (Fluticasone-Umeclidin-Vilanter [Trelegy Ellipta] 200-62.5-25 mcg INH SCH (09:00)
[2024-02-08] MEDS: PANTOprazole 40 MG TAB PO SCH (09:07)
[2024-02-08] MEDS: POTASSIUM CHLORIDE CRTAB 20 MEQ TABCR PO STA (09:07)
[2024-02-08] MEDS: UMECLIDINIUM/VILANTEROL 62.5/25MCG 7 PUFFS/INHALER INH SCH (09:07)
[2024-02-08 09:34] LABS: Hematocrit (blood only) 27.1 % (37.0-47.0); Hemoglobin 9.2 g/dl (12.0-16.0); Mean Corpuscular Hemoglobin 31.7 pg (25.0-34.0); Mean Corpuscular Hgb Conc 33.9 g/dL (32.0-36.0); Mean Corpuscular Volume 93.4 fL (80.0-100.0); Mean Platelet Volume 10.6 fL (9.4-12.4); Platelet Count 87 K/uL (130-400); RDW Coefficient of Variation 17.8 % (11.5-14.5); RDW Standard Deviation 57.1 fL (36.4-46.3); White Blood Count 2.25 K/ul (4.8-10.8)
[2024-02-08 09:45] LABS: BUN Creatinine Ratio 8.5 (10-20); Calcium 8.7 mg/dl (8.6-10.3); Creatinine Clr Calc Pharmacy 64.1 ml/min; Phosphorus 3.9 mg/dl (2.5-4.9); Potassium 3.5 mmol/L (3.5-5.1)
[2024-02-08] MEDS: FLUTICASONE FUROATE 200MCG 14 PUFFS/INHALER INH SCH (09:50)
[2024-02-08 09:51] LABS: Basophils # (auto) 0.01 K/uL (0.00-0.20); Basophils % (auto) 0.4 %; Eosinophils # (auto) 0.43 K/uL (0.00-0.50); Eosinophils % (auto) 19.1 %; Immature Granulocytes # (auto) 0.01 K/uL (0.01-0.20); Immature Granulocytes % (auto) 0.4 %; Lymphocytes # (auto) 0.85 K/uL (1.20-3.40); Lymphocytes % (auto) 37.8 %; Monocytes % (auto) 22.2 %; Neutrophils # (auto) 0.45 K/uL (1.40-6.50); Neutrophils % (auto) 20.1 %; Polychromasia 1+
--- NOTE | 2024-02-08 11:25 | Hospitalist Progress Note ---
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 Denies fever/chills, increased cough. Pneumonia Bibasilar infiltration more on the left than the right favors pneumonia Current treatment Alimta, carboplatin, Keytruda. Last chemo treatment on 01/24/24 Shortness of breath for 2 weeks and worsening for the last 3 days ER provider spoke to [facility] oncology who had recommended 1 unit PRBC transfusion Was typed and crossed for 2 units and 1 unit PRBC started in ER Started with intravenous cefepime and azithromycin and will be continued for now Supplemental oxygen as needed Continue home inhalers Blood cultures are pending Clinically much better- we will continue current management and likely discharge in a day or 2 Pancytopenia Likely secondary to chemotherapy induced Has been on neutropenic precautions Will monitor CBC Notes on admission: Today in ER: Afebrile, P: 132, R: 20, BP 115/63, 94% on room air. Pulse trended down into low 100s. WBC: 2.8, H/H: 7.2/22, PLT: 86, Moderate neutropenia Lactate: 1.3, procalcitonin: 25, negative BioFire respiratory panel CTA chest: No PE. 2.8 x 2.2 cm spiculated right upper lobe nodule likely representing the primary tumor.Annie and hepatic metastases. Bilateral alveolar opacities, greater within the left lung. These are nonspecific although favor pneumonia. Treatment related pneumonitis could appear similar. Multiple ill- defined nodules within the lungs suggestive of metastases. EKG: Sinus tachycardia, rate 119, Q waves in septal leads, no prior EKG for review at this time Per outpatient labs has had downtrending Hgb. 01/13/2024: WBC: 2.4, H/H: 11/34, PLT: 80 01/23/2024: WBC: 2.9, H/H: 9.9/31, PLT: 261 Iron: 42, TIBC: 181, transferrin: 23, ferritin: 1125, vitamin B-12: 612, folic acid >20 (6) Hypokalemia: Plan: K: 3.4. Magnesium: 1.8 Replace potassium and monitor Potassium has been corrected (7) HLD (hyperlipidemia): Plan: Continue rosuvastatin (8) Bipolar 1 disorder: Plan: Continue lamotrigine, Lybalvi (9) GERD (gastroesophageal reflux disease): Plan: Continue PPI (10) Tobacco use: Plan: Attempting to quit Denies nicotine patch DVT Prophylaxis SCDs Will start Lovenox SQ Admit telemetry Full Code as per discussion with pt Follows with Dr Naidu for routine care Admission and Anticipated Discharge Date Admission Date: February 07, 2024 Subjective 02/08/2024 The patient was seen and examined in medical telemetry unit She has been feeling much better since admission No shortness of breath at rest and has been saturating normally on 1 L nasal cannula Denies any fever and/or chills Review of Systems Review of Systems: All systems reviewed and are unremarkable except as noted below Physical Exam Physical Exam: Lying in bed without any apparent distress Constitutional: well developed, + acute distress, + ill appearing and average body habitus Eyes: PERRL, conjunctivae normal, anicteric sclerae ENMT: external ear and nose normal, oropharynx normal Neck: trachea midline, no thyromegaly Respiratory: no respiratory distress Auscultation: + diminished lung sounds and + crackles ( occasional bibasilar crackles) Cardiovascular: Rate/Rhythm: regular rate and regular rhythm; not tachycardic Heart Sounds: normal S1 and normal S2; no murmur Extremities: no edema Gastrointestinal (Abdomen): Inspection/Auscultation: normal bowel sounds; abdomen not distended Percussion/Palpation: abdomen soft; abdomen nontender Musculoskeletal: no cyanosis or clubbing, extremities motor strength 5/5 Psychiatric: A+Ox3, euthymic affect Lymphatic: no cervical or axillary lymphadenopathy Results & Data Results & Data Vital Signs (Past 12 Hours) Vital Signs Temp Pulse Pulse Resp BP Pulse Ox O2 Del Method 02/08/24 09:59 Nasal Cannula 02/08/24 07:38 36.7 C 93 H 16 94/64 L 97 Nasal Cannula 02/08/24 06:35 37.0 C 89 18 98/63 L 91 Nasal Cannula 02/08/24 05:44 82 02/08/24 02:32 36.6 C 87 16 98/59 L 95 Nasal Cannula O2 Flow Rate 02/08/24 09:59 1 02/08/24 07:38 2 02/08/24 06:35 1 02/08/24 05:44 02/08/24 02:32 1 Laboratory Results Short CBC 02/07/24 02/07/24 02/08/24 Range/Units 12:52 23:48 08:58 WBC 2.89 L 2.25 L (4.8-10.8) K/ul Hgb 7.2 L 8.8 L 9.2 L (12.0-16.0) g/dl Hct 22.0 L 26.2 L 27.1 L (37.0-47.0) % Plt Count 86 L 87 L (130-400) K/uL BMP 02/07/24 02/08/24 12:52 08:58 Sodium 137 139 Potassium 3.4 L 3.5 Chloride 97 L 102 Carbon Dioxide 30 28 BUN 8 8 Creatinine 1.06 0.94 Glucose 123 H 110 H Calcium 9.0 8.7 Liver Function 02/07/24 Range/Units 12:52 Total Bilirubin 0.7 (0.2-1.0) mg/dl AST 31 (13-39) U/L ALT 32 (7-52) U/L Alkaline Phosphatase 89 (34-104) U/L Albumin 3.5 (3.4-5.0) gm/dl Medications Administered Current Inpatient Medications Acetaminophen (Acetaminophen 325 Mg Tab) 650 mg PO Q4H PRN PRN Reason: Pain or Fever Stop: 03/08/24 19:37 Last Admin: 02/07/24 21:27 Dose: 650 mg Albuterol (Albuterol Hfa 8 Gm Inhaler) 2 puffs INH Q4H PRN PRN Reason: Shortness Of Breath Stop: 03/08/24 19:37 Azithromycin (Azithromycin 250 Mg Tab) 250 mg PO QAM KERRY Stop: 02/11/24 08:59 Last Admin: 02/08/24 08:28 Dose: 250 mg Fluticasone Furoate (Fluticasone Furoate 200mcg 14 Puffs/Inhaler) 1 puffs INH DAILY KERRY Stop: 03/09/24 08:59 Last Admin: 02/08/24 09:50 Dose: 1 puffs Folic Acid (Folic Acid 1 Mg Tab) 1 mg PO DAILY [facility] Stop: 03/09/24 08:59 Last Admin: 02/08/24 08:28 Dose: 1 mg Cefepime HCl (Maxipime 2000mg) 2,000 mg in 20 mls @ 5 mls/min IV Q12H [facility]; Protocol Stop: 02/13/24 02:59 Last Admin: 02/08/24 02:55 Dose: 5 mls/min Lamotrigine (Lamotrigine 100 Mg Tab) 100 mg PO BID [facility]; Protocol Stop: 03/08/24 20:59 Last Admin: 02/08/24 08:28 Dose: 100 mg Miscellaneous (Order Awaiting Action: Marlo) 1 each N/A QS [facility] Stop: 03/09/24 00:00 Last Admin: 02/08/24 07:30 Dose: Not Given Ondansetron HCl (Ondansetron Inj 2 Mg/Ml 2 Ml Vial) 4 mg IV Q6H PRN PRN Reason: Nausea Stop: 03/08/24 19:37 Pantoprazole Sodium (Pantoprazole 40 Mg Tab) 40 mg PO DAILY [facility] Stop: 03/09/24 08:59 Last Admin: 02/08/24 09:07 Dose: 40 mg Polyethylene Glycol (Polyethylene (Miralax) 17 Gm Pack) 17 gm PO DAILY PRN PRN Reason: Constipation Stop: 03/08/24 19:37 Umeclidinium/Vilanterol (Umeclidinium/Vilanterol 62.5/25mcg 7 Puffs/Inhaler) 1 puffs INH DAILY [facility] Stop: 03/09/24 08:59 Last Admin: 02/08/24 09:07 Dose: 1 puffs
[2024-02-08] MEDS: ENOXAPARIN INJ 40 MG/0.4 ML SYR SQ SCH (12:54)
[2024-02-09 07:39] VITALS: TEMP 98.6
[2024-02-09 09:03] LABS: Hematocrit (blood only) 27.2 % (37.0-47.0); Hemoglobin 8.9 g/dl (12.0-16.0); Mean Corpuscular Hemoglobin 31.2 pg (25.0-34.0); Mean Corpuscular Hgb Conc 32.7 g/dL (32.0-36.0); Mean Corpuscular Volume 95.4 fL (80.0-100.0); Mean Platelet Volume 10.4 fL (9.4-12.4); Platelet Count 104 K/uL (130-400); RDW Coefficient of Variation 18.1 % (11.5-14.5); RDW Standard Deviation 57.7 fL (36.4-46.3); Red Blood Count 2.85 M/uL (4.20-5.40); White Blood Count 2.93 K/ul (4.8-10.8)
[2024-02-09 09:24] LABS: BUN Creatinine Ratio 11.4 (10-20); Calcium 8.6 mg/dl (8.6-10.3); Magnesium 1.7 mg/dl (1.7-2.4); Phosphorus 3.7 mg/dl (2.5-4.9); Potassium 3.7 mmol/L (3.5-5.1)
[2024-02-09 10:06] LABS: Basophils # (auto) 0.01 K/uL (0.00-0.20); Basophils % (auto) 0.3 %; Eosinophils # (auto) 0.42 K/uL (0.00-0.50); Eosinophils % (auto) 14.3 %; Immature Granulocytes # (auto) 0.05 K/uL (0.01-0.20); Immature Granulocytes % (auto) 1.7 %; Lymphocytes % (auto) 34.1 %; Monocytes # (auto) 0.71 K/uL (0.11-0.59); Monocytes % (auto) 24.2 %; Neutrophils # (auto) 0.74 K/uL (1.40-6.50); Neutrophils % (auto) 25.4 %; Polychromasia 1+
--- NOTE | 2024-02-09 11:13 | Discharge Summary ---
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 Denies fever/chills, increased cough. Current chemotherapy treatment Alimta, carboplatin, Keytruda. Last chemo treatment on 01/24/24 On arrival in the ER: Afebrile, P: 132, R: 20, BP 115/63, 94% on room air. Pulse trended down into low 100s. WBC: 2.8, H/H: 7.2/22, PLT: 86, Moderate neutropenia Lactate: 1.3, procalcitonin: 25, negative BioFire respiratory panel CTA chest: "No PE. 2.8 x 2.2 cm spiculated right upper lobe nodule likely representing the primary tumor.Annie and hepatic metastases. Bilateral alveolar opacities, greater within the left lung. These are nonspecific although favor pneumonia. Treatment related pneumonitis could appear similar. Multiple ill-defined nodules within the lungs suggestive of metastases." EKG: Sinus tachycardia, rate 119, Q waves in septal leads, no prior EKG for review at this time Per outpatient labs has had downtrending Hgb. 01/13/2024: WBC: 2.4, H/H: /34, PLT: 80 01/23/2024: WBC: 2.9, H/H: 9.9/31, PLT: 261 Iron: 42, TIBC: 181, transferrin: 23, ferritin: 1125, vitamin B-12: 612, folic acid >20 Acute Hypoxic Respiratory Failure Pneumonia Metastatic Lung cancer CTA chest with findings noted above, concern for pneumonia vs. pneumonitis but no noted PE Procalcitonin of 25 Pt remained afebrile Requiring 2L of oxygen Blood cultures NGTD Supplemental oxygen as needed Treated with IV Cefepime and Azithromycin Home inhalers were continued Neutropenic precautions were employed Pt had a 2 step on the day of discharge which noted she did not need oxygen for home use. On the day of discharge, pt was anxious to go home. She was discharged with an additional 8 more days of po Levaquin 750mg daily and left in stable condition. She was advised to closely follow up with her pcp and rehab liaison as well as her oncologist after discharge. Chronic Anemia Hgb of 7.2 on admission ER provider spoke to [facility] oncology who had recommended 1 unit PRBC transfusion Was typed and crossed for 2 units and 1 unit PRBC started in ER. She was transfused 2U pRBCs on 02/07/24 Hgb of 8.9 on discharge PCP and oncology follow up after discharge Pancytopenia Pt with anemia noted above, leukopenia with neutropenia, and thrombocytopenia Undergoing chemotherapy as noted above Close PCP and oncology follow up after discharge for continued monitoring and followup. Hypokalemia Was repleted as needed Continue other home meds as prescribed. Notes For Next Care Provider Pt had 2 step before discharge- no oxygen required for home use Please ensure close followup with Hematology/Oncology and pulmonology after discharge. 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 States increased SOB over past 3 days. Chronic cough but no worsening and reports is non-productive. Denies congestion, fever/chills Denies noted bleeding. Denies ill contacts. Last chemo on 01/24/24. Denies diaphoresis, N/V/D/C, QUINTANILLA, dizziness, syncope, CP, palpitations, hemoptysis, sore throat, rhinorrhea, abdominal pain, extremity weakness, extremity edema, rashes, urinary symptoms. Admission Exam Per Admitting Provider General: In no acute distress Eyes: PERRL, conjunctivae normal, not pale, anicteric sclerae, EOM intact bilaterally ENMT: External ear and nose normal, oropharynx normal Respiratory: Normal respiratory effort, no respiratory distress, diminished breath sounds Cardiovascular: Tachycardic S1 S2 Gastrointestinal (Abdomen): Abdomen is not distended, soft, non-tender to palpation, no guarding, no palpable hepatosplenomegaly, normal bowel sounds Musculoskeletal: No pedal edema Neurologic: Alert and oriented x 3, No focal weakness, sensation grossly intact Psychiatric: Euthymic affect Discharge Exam General: Alert, oriented. No acute distress Psych: Appropriate mood and affect Neuro: No gross deficits HEENT: NC/AT Chest: Nontender to palpation. CV: RRR Resp: Breath sounds decreased bilaterally, no increased effort of breathing Abdomen: Soft, nontender Extremities: No edema in lower extremities bilaterally. Updated Medication List Medication Instructions Recorded Confirmed Type albuterol sulfate 90 mcg/actuation 2 inh inhalation Q4H PRN SOB 02/07/24 02/07/24 History aerosol inhaler fluticasone fur. 200 mcg-umeclid 1 inh inhalation QAM 02/07/24 02/07/24 History 62.5 mcg-vilant 25 mcg inhalat.powder (Trelegy Ellipta) folic acid 1 mg tablet 1 mg PO DAILY 02/07/24 02/07/24 History lamotrigine 100 mg tablet 100 mg PO BID 02/07/24 02/07/24 History olanzapine 20 mg-samidorphan 10 mg 1 tab PO HS 02/07/24 02/07/24 History tablet (Lybalvi) pantoprazole 40 mg tablet,delayed 40 mg PO DAILY 02/07/24 02/07/24 History release levofloxacin 750 mg tablet 750 mg PO DAILY #8 tabs 02/09/24 Rx Hospital Stay Data Consultations 02/07/24 15:19 ED Decision to Admit Stat Diagnostic Imagining Performed 02/07/24 13:22 CT angio chest PE protocol Stat Chest CTA 02/07/24 13:22 CT ANGIOGRAPHY OF THE CHEST, PULMONARY EMBOLUS PROTOCOL CLINICAL HISTORY: stage 4 lung ca, dyspnea, tachcyardia COMPARISON STUDY: No previous studies for comparison. TECHNIQUE: Following IV administration of 119 mL of Optiray, helical axial images of the chest were obtained utilizing the pulmonary embolus protocol. Maximal intensity projections and sagittal and coronal reformats were viewed on an independent 3D workstation. IV contrast was administered without complication. Automated exposure control was utilized for the study. A dose lowering technique was utilized adhering to the principles of ALARA. CT DOSE: 420.01 mGy.cm FINDINGS: No pulmonary emboli are identified. There is no thoracic aortic dissection. Size of the heart is normal. There is no pericardial effusion. Multiple enlarged mediastinal and bilateral hilar lymph nodes are present. A subcarinal lymph node on image 107 of 213 measures 3.2 x 2.3 cm. A right paratracheal lymph node on image 138 measures 2.4 x 2.1 cm. There is no pneumothorax or pleural effusion. A spiculated 2.8 x 2.2 cm right upper lobe nodule on image 155 is present. There are moderate alveolar opacities within the left upper and left lower lobes. There are mild alveolar opacities within the right lung. Several ill-defined nodular densities are present, including an 8 mm right upper lobe nodule image 125. No suspicious lesions within the bony thorax are identified. A lucent lesion within the T8 vertebral body favors a hemangioma. Several hypodense ill-defined hepatic lesions measure up to 3.3 cm. IMPRESSION: 1. No pulmonary emboli identified. 2. 2.8 x 2.2 cm spiculated right upper lobe nodule likely representing the primary tumor. 3. Annie and hepatic metastases, as described above. 4. Bilateral alveolar opacities, greater within the left lung. These are nonspecific although favor pneumonia. Treatment related pneumonitis could appear similar. 5. Multiple ill-defined nodules within the lungs suggestive of metastases. ACT 112: Negative or not required by law. Electronically signed by: Aman Parks M.D. 02/07/2024 2:43 PM Pending Results Patient Have Any Pending Studies at Discharge: No Discharge Instructions Given to Patient (Per Discharging Provider) Sarah, You were admitted and treated for a pneumonia and acute hypoxic respiratory failure. We treated you with antibiotics and gave you oxygen in the hospital. You had a test done before discharge which showed that you no longer needed oxygen for home use. We are discharging you home with 8 more days of the antibiotic Levaquin to take at home. Please take it as prescribed. You also received a blood transfusion here per the recommendations of your transfer station operator/oncologist. It is very important that you keep close follow up with them after discharge. Please also keep close followup with your rehab liaison as well. And finally, please also keep close follow up with your primary care provider after discharge. Please do not hesitate to come back to the emergency room if your symptoms worsen or return. It was a pleasure taking care of you while you were here. Total Time Total Time Spent Total Time Spent (In Minutes): 65
[2024-02-09 11:17] VITALS: BP 103/67; PULSE 103; RESP 20; O2SAT 94
== END 2024-02-09 12:30 | disposition home or self-care (01) | DRG 193 ==
LOC: ED 12:44 → EDINP 15:52 → SUATTDRO 15:52 → 2W 19:39

== ENCOUNTER 2024-04-09 15:58 | Inpatient (IN) ==
--- NOTE | 2024-04-09 16:20 | Emergency Department Note ---
Impression & Plan Acute hypoxic respiratory failure, Consolidation of right lower lobe of lung, Pneumonia ED Provider Note NAME: TAYO ONEILL AGE: 48 SEX: F : 1975 ARRIVES VIA: Walk-In INFORMANT: Patient ED PROVIDER(S): Nicholas Silva DO CHIEF COMPLAINT: Shortness of breath HPI: Patient is a 26-[id number]-year-old female who presents to the ER for shortness of breath. She notes that she has been this way for several months but has gotten worse over the past week. She admits to worsening cough over the past week. She was just recently placed on 3 L nasal cannula this past week for increasing shortness of breath. CT was done due to this and they found a total collapse of the right lower lobe and patient was referred in to the ER today from Dr. Yogi Muñoz's office. Currently not receiving any chemo or radiation at this time. Last dose per the who was present at bedside and provides additional history was at the end of this January. She denies any dysuria, urgency, or frequency. No other exacerbating or remitting factors. ADDITIONAL HISTORY OBTAINED: Per HPI Chronic Medical/Social Conditions Affecting Care: Per HPI PAST MEDICAL HISTORY:See Below PAST SURGICAL HISTORY:See Below FAMILY HISTORY:See Below SOCIAL HISTORY:See Below HOME MEDICATIONS:See Below ALLERGIES:See Below VITALS:See Below PHYSICAL EXAMINATION: GENERAL: Sitting up in bed, alert, chronically ill-appearing, disheveled on 3 L nasal cannula EYE EXAM: normal conjunctiva. OROPHARYNX: mucous membranes are moist NECK: supple, no nuchal rigidity, no adenopathy, non-tender LUNGS: Diminished bilaterally. Normal chest wall mechanics HEART: no murmurs, S1 normal and S2 normal ABDOMEN: abdomen soft, non-tender, normo-active bowel sounds, no masses, no rebound or guarding. UPPER EXTREMITIES: upper extremities are grossly normal. LOWER EXTREMITIES: No pitting edema. NEURO EXAM: Normal sensorium, cranial nerves II-XII grossly intact, normal speech, no gross weakness of arms, no gross weakness of legs. MEDICAL DECISION MAKING: Patient is a 48-year-old female who presents to the ER with a past medical history of bipolar disorder, metastatic primary lung cancer, pancytopenia, for abnormal CT. External records were reviewed which showed a CT done today with right lower lobe atelectasis/consolidation with concern for aspiration. Patient was given IV Zosyn. I did discuss with the hospitalist this patient does have a new O2 requirement and was recently within the week placed on 3 L nasal cannula. Currently on nasal cannula. Patient was updated bedside. Discussed case with the hospitalist and pulmonology for further evaluation management treatment. Consults/Care Managements Discussions: Per [facility] Triage Nursing notes reviewed. Limited review of prior medical records performed Vital Signs: reviewed and remarkable for hypoxic Differential diagnosis: Differential diagnoses includes but is not limited to pneumonia, bronchitis, COPD/Asthma exacerbation, pneumothorax, pulmonary embolism, congestive heart failure, acute coronary syndrome ER treatment provided: See below Diagnostics interpreted by me include EKG and cardiac monitoring as listed below: -Cardiac Monitoring: An order was placed for continuous cardiac monitoring. The monitor shows a rate of 101 with sinus rhythm. -ECG: Sinus rhythm rate 85 Normal axis No PVCs QTc 426 -Laboratory studies:Interpreted by me as stated above in MDM and shown below. Imaging studies: Xrays: As interpreted by me: Portable AP upright 1 view of the chest shows right lower lobe infiltrate and left lower lobe opacity CTs show: none Procedures:none Critical Care: I have personally spent 35 minutes of critical care time in the direct management of this patient. This includes bedside care, interpretation of diagnostic studies, and testing, discussion with consultants, patient, and family members, and other required patient management activities. This 35 minutes is in excess of all separately billable procedures. Past Med/Surg History Problem List (Updated 04/09/24 @ 22:10 by Nicholas Silva DO) Tobacco use disorder Mixed restrictive and obstructive lung disease Acute hypoxic respiratory failure (Acute) Consolidation of right lower lobe of lung (Acute) Pneumonia (Acute) Sinus tachycardia (Acute) Symptomatic anemia (Acute) Tobacco use GERD (gastroesophageal reflux disease) Bipolar 1 disorder HLD (hyperlipidemia) Metastatic primary lung cancer (Acute) Hypokalemia (Acute) Pancytopenia (Acute) Surgical History History of cholecystectomy History of bronchoscopy 11/28/23 Family History Grandmother (Maternal) Breast cancer Other Dyslipidemia Hypertension Social History Smoking Status: Current every day smoker Tobacco Type: Cigarettes Cigarettes Per Day: 2 cigarettes per day; Second Hand Exposure: No; Do You Dip or Chew Tobacco: No; Tobacco Cessation Education Requested by Patient: No Hx Alcohol Use: No Hx Substance Use: No Preferred Language: French Communication Ability: Effective Act Tutor Required: No Beliefs That Will Affect Care: None Current Living Situation: Significant Other Current Living Situation Comment: lives at home with boyfriend Other Information That Helps Us Care for You: No Feels Safe at Home: Yes Safety Concerns: Feels Safe At This Time Assistive Devices: None Allergies Allergies Allergy/AdvReac Type Severity Reaction Status Date / Time No Known Allergies Allergy Unverified 04/09/24 16:36 Home Meds Home Medications Medication Instructions Recorded Confirmed albuterol sulfate 90 mcg/actuation 2 inh inhalation Q6 PRN DYSPNEA OR 02/07/24 04/09/24 aerosol inhaler WHEEZING fluticasone fur. 200 mcg-umeclid 1 inh inhalation QAM 02/07/24 04/09/24 62.5 mcg-vilant 25 mcg inhalat.powder (Trelegy Ellipta) folic acid 1 mg tablet 1 mg PO DAILY 02/07/24 04/09/24 lamotrigine 100 mg tablet 100 mg PO BID 02/07/24 04/09/24 olanzapine 20 mg-samidorphan 10 mg 1 tab PO HS 02/07/24 04/09/24 tablet (Lybalvi) pantoprazole 40 mg tablet,delayed 40 mg PO DAILY 02/07/24 04/09/24 release ondansetron HCl 8 mg tablet 8 mg PO Q8 PRN Nausea 04/09/24 04/09/24 prednisone 10 mg tablet 30 mg PO QAM 04/09/24 04/09/24 prochlorperazine maleate 10 mg 10 mg PO Q6 PRN Nausea 04/09/24 04/09/24 tablet sulfamethoxazole 800 1 tab PO 3XWK 04/09/24 04/09/24 mg-trimethoprim 160 mg tablet Results & Data (ED) Vital Signs Vital Signs - 24 hr 04/09/24 16:04 04/09/24 16:17 04/09/24 16:18 Temperature 36.3 C L Temperature Source Temporal Artery Scan Pulse Rate 101 H 97 H 88 Pulse Rate from SpO2 Sensor 88 Respiratory Rate 20 21 Blood Pressure 171/74 H Blood Pressure Mean 106 Pulse Oximetry 88 L 95 Oxygen Delivery Method Room Air Oxygen Flow Rate Sepsis Recent Fever Within 48 Hours No Sepsis New/Unexplained Change in Mental Status N/A Sepsis Action Taken by Nursing No Action Required 04/09/24 16:33 04/09/24 17:04 04/09/24 17:04 Temperature Temperature Source Pulse Rate 91 H Pulse Rate from SpO2 Sensor 88 Respiratory Rate 18 Blood Pressure Blood Pressure Mean Pulse Oximetry 96 Oxygen Delivery Method Nasal Cannula Nasal Cannula Oxygen Flow Rate 3 3 Sepsis Recent Fever Within 48 Hours Sepsis New/Unexplained Change in Mental Status Sepsis Action Taken by Nursing 04/09/24 17:18 Temperature Temperature Source Pulse Rate 80 Pulse Rate from SpO2 Sensor 81 Respiratory Rate 17 Blood Pressure Blood Pressure Mean Pulse Oximetry 97 Oxygen Delivery Method Oxygen Flow Rate Sepsis Recent Fever Within 48 Hours Sepsis New/Unexplained Change in Mental Status Sepsis Action Taken by Nursing Laboratory Data 04/09/24 16:31 04/09/24 16:31 Lab Results 04/09/24 04/09/24 Range/Units 16:31 16:44 WBC 8.29 (4.8-10.8) K/ul RBC 4.26 (4.20-5.40) M/uL Hgb 14.5 (12.0-16.0) g/dl Hct 43.7 (37.0-47.0) % MCV 102.6 H (80.0-100.0) fL MCH 34.0 (25.0-34.0) pg MCHC 33.2 (32.0-36.0) g/dL RDW Std Deviation 61.6 H (36.4-46.3) fL RDW Coeff of Connor 16.0 H (11.5-14.5) % Plt Count 137 (130-400) K/uL MPV 9.9 (9.4-12.4) fL Immature Gran % (Auto) 0.5 % Neut % (Auto) 89.5 % Lymph % (Auto) 5.4 % Bowman % (Auto) 4.5 % Eos % (Auto) 0.0 % Baso % (Auto) 0.1 % Neut # (Auto) 7.42 H (1.40-6.50) K/uL Lymph # (Auto) 0.45 L (1.20-3.40) K/uL Bowman # (Auto) 0.37 (0.11-0.59) K/uL Eos # (Auto) 0.00 (0.00-0.50) K/uL Baso # (Auto) 0.01 (0.00-0.20) K/uL Immature Gran # (Auto) 0.04 (0.01-0.20) K/uL Sodium 136 (136-145) mmol/L Potassium 4.1 (3.5-5.1) mmol/L Chloride 98 (98-107) mmol/L Carbon Dioxide 27 (21-32) mmol/L Anion Gap 11 (3-11) BUN 12 (6-23) mg/dl Creatinine 0.95 (0.6-1.2) mg/dl Est Cr Clr Drug Dosing 65.9 ml/min eGFR 74.37 BUN/Creatinine Ratio 12.6 (10-20) Glucose 131 H (70-99(Fasting)) mg/dl Calcium 9.9 (8.6-10.3) mg/dl Total Bilirubin 0.7 (0.2-1.0) mg/dl AST 24 (13-39) U/L ALT 18 (7-52) U/L Alkaline Phosphatase 84 (34-104) U/L Troponin I High Sens 13.0 (0-14) pg/ml Total Protein 7.9 (6.0-8.3) gm/dl Albumin 4.1 (3.4-5.0) gm/dl Globulin 3.8 (2.5-4.0) gm/dl Albumin/Globulin Ratio 1.1 (0.9-2) Lipase 9 L (11-82) U/L Nasal Influ A H1 2008 PCR DETECTED A (NotDetected) Adenovirus (PCR) Not Detected (NotDetected) B. pertussis DNA (PCR) Not Detected (NotDetected) B.parapertussis DNA PCR Not Detected (NotDetected) C. pneumoniae DNA (PCR) Not Detected (NotDetected) Coronavirus OC43 (PCR) Not Detected (NotDetected) Coronavirus HKU1 (PCR) Not Detected (NotDetected) Coronavirus 229E (PCR) Not Detected (NotDetected) SARS-CoV-2 (PCR) Not Detected (NotDetected) Coronavirus NL63 (PCR) Not Detected (NotDetected) Human Metapneumovir PCR Not Detected (NotDetected) Influenza Type B (PCR) Not Detected (NotDetected) M. pneumoniae (PCR) Not Detected (NotDetected) Parainfluenza 1 (PCR) Not Detected (NotDetected) Parainfluenza 2 (PCR) Not Detected (NotDetected) Parainfluenza 3 (PCR) Not Detected (NotDetected) Parainfluenza 4 (PCR) Not Detected (NotDetected) RSV (PCR) Not Detected (NotDetected) Entero/Rhino (PCR) Not Detected (NotDetected) Administered Medications Discontinued Medications Piperacillin Sod/Tazobactam Sod (Zosyn) 4.5 gm in 100 mls @ 200 mls/hr IV NOW ONE; Protocol Stop: 04/09/24 16:45 Last Infusion: 04/09/24 18:39 Dose: Infused Documented By: Admin: 04/09/24 16:41 Dose: 200 mls/hr Documented By: MATTK Sodium Chloride (Nss) 1,000 mls @ 999 mls/hr IV .Q1H1M ONE Stop: 04/09/24 17:16 Last Infusion: 04/09/24 19:05 Dose: Infused Documented By: Admin: 04/09/24 16:41 Dose: 999 mls/hr Documented By: TNK Imaging Data Radiologist's Impression: Chest X-Ray 04/09/24 16:11 Clinical History: Pneumonia Technique: A frontal view of the chest was obtained Findings: There is mild patchy opacity in the left lower lobe that may be due to pneumonia. The heart is mildly enlarged. No definite pleural effusion or pneumothorax is seen. There is no definite pulmonary nodule. No fracture is noted. No foreign body is seen Impression: 1. Suspected left lower lobe pneumonia 2. Cardiomegaly Electronically signed by Supa Velázquez 04-09-2024 6:30 PM Discharge Plan Visit Data Chief Complaint: Respiratory Problems Stated Complaint: LUNG ED Provider: Nicholas Silva Discharge Problem: Acute hypoxic respiratory failure, Consolidation of right lower lobe of lung, Pneumonia Patient Disposition: Admitted As Inpatient Discharge Instructions Interventions: ED Discharge Assessment Last Done: 04/09/24 20:29 Discharge Problem: Pneumonia Qualifiers: Pneumonia type: due to unspecified organism Laterality: right Lung location: l ower lobe of lung Qualified Code(s): J18.9 - Pneumonia, unspecified organism
[2024-04-09] MEDS: PIPERACILLIN/TAZOBACTAM 4.5 GM/100 ML BAG IV ONE (16:41)
[2024-04-09] MEDS: SODIUM CHLORIDE 0.9% 1,000 ML IV ONE (16:41)
[2024-04-09 16:45] LABS: Basophils # (auto) 0.01 K/uL (0.00-0.20); Basophils % (auto) 0.1 %; Hematocrit (blood only) 43.7 % (37.0-47.0); Hemoglobin 14.5 g/dl (12.0-16.0); Immature Granulocytes # (auto) 0.04 K/uL (0.01-0.20); Immature Granulocytes % (auto) 0.5 %; Lymphocytes # (auto) 0.45 K/uL (1.20-3.40); Lymphocytes % (auto) 5.4 %; Mean Corpuscular Hgb Conc 33.2 g/dL (32.0-36.0); Mean Corpuscular Volume 102.6 fL (80.0-100.0); Mean Platelet Volume 9.9 fL (9.4-12.4); Monocytes # (auto) 0.37 K/uL (0.11-0.59); Monocytes % (auto) 4.5 %; Neutrophils # (auto) 7.42 K/uL (1.40-6.50); Neutrophils % (auto) 89.5 %; Platelet Count 137 K/uL (130-400); RDW Standard Deviation 61.6 fL (36.4-46.3); Red Blood Count 4.26 M/uL (4.20-5.40); White Blood Count 8.29 K/ul (4.8-10.8)
[2024-04-09 17:01] LABS: Albumin Globulin Ratio 1.1 (0.9-2); Albumin Level 4.1 gm/dl (3.4-5.0); BUN Creatinine Ratio 12.6 (10-20); Bilirubin,Total 0.7 mg/dl (0.2-1.0); Calcium 9.9 mg/dl (8.6-10.3); Creatinine Clr Calc Pharmacy 65.9 ml/min; Globulin 3.8 gm/dl (2.5-4.0); Potassium 4.1 mmol/L (3.5-5.1); Total Protein 7.9 gm/dl (6.0-8.3)
--- NOTE | 2024-04-09 17:02 | History & Physical Report ---
<Statement entered by Lester Kenney, - 04/09/24 18:46> I have seen and examined the patient and have discussed the case with the advance practice provider. I have reviewed the advanced practitioner's documentation, and I agree with, and take responsibility for that plan of care. Patient seen in ED, at bedside. Patient denies any shortness of breath now that she is on the oxygen and feeling more comfortable. Lungs:'s significant decreased breath sounds right lower lobe, egophony, dullness Reviewed images of outside CT of the chest. Significant consol idation/atelectasis of right lower lobe, right upper lobe nodule Reviewed plan of care as outlined below with JOS I spent a total of 18 minutes coordinating, documenting, and providing care for this patient excluding time spent by another provider/QHP. 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 Outpatient oncologist is Dr. Yogi Muñoz at [facility]. Patient endorsing cough x 3 days productive of yellow sputum. No reported fevers. Was noted to be hypoxic on RA upon arrival to ED with O2 sat of 88%. Normally on 3L NC only with exertion prior to arrival. Now on 4L NC at time of my examination in the ED and saturating in the mid 90s SpO2 at rest. Patient has however noticed some mild SOB at rest over the past week or so. Not currently on chemotherapy 2/2 Keytruda-induced pneumonitis. Was last on chemotherapy back in January 2024 and was receiving the following regimen: Alimta, carboplatin and Keytruda every 21 days. Started Bactrim for PJP prophylaxis on 03/05/24. Patient endorses taking all of her medications today. Currently on daily prednisone therapy given her history of Keytruda-induced pneumonitis. Was started on prednisone 60mg daily initially, now slowly tapered down to 30mg daily since 03/24/24. Has been on daily oral prednisone therapy since 02/21/24. Additional chest CT findings including increase in size of RUL spiculated nodule and progressive mediastinal and bilateral hilar lymphadenopathy. Respiratory BioFire panel pending. Nasal MRSA screen pending. ED labs personally reviewed. WBC count 8.29k, Hgb stable at 14.5 and electrolytes WNL. S/p 1L NSS and dose of IV Zosyn in ED. Obstructive atelectasis vs PNA. Continue IV Zosyn for now. Pulmonology consult pending. Hold Bactrim for now while on IV Zosyn. Continue prednisone. Continue PPI. Continue Trelegy inhaler. PRN Duonebs for SOB/wheezing. Utilize ISP as able. CXR pending. Attempt to wean resting O2 requirement as able. (5) Tobacco use disorder: Plan: Currently smokes 2 cigarettes/day. Used to smoke 2ppd. Denies need for nicotine patch at this time. Smoking cessation encouraged. (6) Bipolar 1 disorder: Plan: Chronic, stable. Continue Lybalvi and lamotrigine. DVT Prophylaxis: SQ Heparin Code Status: FULL CODE PCP: Renetta Naidu DO Disposition: Admit to PCU/Telemetry for further inpatient evaluation and management. Patient seen in collaboration with Dr. Kenney. Please see addendum. I spent a total of 65 minutes coordinating, documenting, and providing care for this patient excluding time spent in the performance of separately billed services or time spent by another provider/QHP. This included personally reviewing all current laboratories and imaging studies, medical reconciliation, outpatient chart review and discussion with specialists. This chart was completed in part utilizing Speech Voice Recognition Software. Grammatical errors, random word insertions, pronoun errors, and incomplete sentences are an occasional consequence of this system due to software limitations, ambient noise, and hardware issues. Any formal questions or concerns about the content, text, or information contained within the body of this dictation should be directly addressed to the provider for clarification. 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 History obtained from the patient, patient's significant other at bedside and associated chart review. As per above, patient referred to ED via recommendation by her primary oncologist after outpatient chest CT today revealed new atelectasis/consolidation of the RLL suggesting possible aspiration/pneumonia. Outpatient oncologist is Dr. Yogi Muñoz at [facility]. Patient endorsing cough x 3 days productive of yellow sputum. No reported fevers, chills or body aches. Denies any chest pain. No changes to her urinary or bowel habits. Was noted to be hypoxic on RA upon arrival to ED with O2 sat of 88%. Normally on 3L NC only with exertion prior to arrival. Now on 4L NC at time of my examination in the ED and saturating in the mid 90s SpO2 at rest. Patient has however noticed some mild SOB at rest over the past week or so. Not currently on chemotherapy 2/2 Keytruda-induced pneumonitis. Was last on chemotherapy back in January 2024 and was receiving the following regimen: Alimta, carboplatin and Keytruda every 21 days. Started Bactrim for PJP prophylaxis on 03/05/24. Patient endorses taking all of her medications today. Currently on daily prednisone therapy given her history of Keytruda-induced pneumonitis. Was started on prednisone 60mg daily initially, now slowly tapered down to 30mg daily since 03/24/24. Has been on daily oral prednisone therapy since 02/21/24. Used to smoke 2ppd, now down to 2 cigarettes/day. Denies need for nicotine patch at this time. No alcohol abuse. No recreational drug use. Endorses good appetite. Has some chronic, mild BLE weakness since undergoing chemotherapy treatment. No recent falls or trauma. Denies any numbness or tingling in her extremities. Respiratory BioFire panel pending. Nasal MRSA screen pending. ED labs personally reviewed. WBC count 8.29k, Hgb stable at 14.5 and electrolytes WNL. Allergies Allergy/AdvReac Type Severity Reaction Status Date / Time No Known Allergies Allergy Unverified 04/09/24 16:36 Home Medications Medication Instructions Recorded Confirmed Type albuterol sulfate 90 mcg/actuation 2 inh inhalation Q6 PRN DYSPNEA OR 02/07/24 04/09/24 History aerosol inhaler WHEEZING fluticasone fur. 200 mcg-umeclid 1 inh inhalation QAM 02/07/24 04/09/24 History 62.5 mcg-vilant 25 mcg inhalat.powder (Trelegy Ellipta) folic acid 1 mg tablet 1 mg PO DAILY 02/07/24 04/09/24 History lamotrigine 100 mg tablet 100 mg PO BID 02/07/24 04/09/24 History olanzapine 20 mg-samidorphan 10 mg 1 tab PO HS 02/07/24 04/09/24 History tablet (Lybalvi) pantoprazole 40 mg tablet,delayed 40 mg PO DAILY 02/07/24 04/09/24 History release ondansetron HCl 8 mg tablet 8 mg PO Q8 PRN Nausea 04/09/24 04/09/24 History prednisone 10 mg tablet 30 mg PO QAM 04/09/24 04/09/24 History prochlorperazine maleate 10 mg 10 mg PO Q6 PRN Nausea 04/09/24 04/09/24 History tablet sulfamethoxazole 800 1 tab PO 3XWK 04/09/24 04/09/24 History mg-trimethoprim 160 mg tablet Past Med/Surg History Problem List (Updated 04/09/24 @ 18:31 by Megna Lawler PA-C) Tobacco use disorder Mixed restrictive and obstructive lung disease Acute hypoxic respiratory failure Consolidation of right lower lobe of lung Pneumonia (Acute) Sinus tachycardia (Acute) Symptomatic anemia (Acute) Tobacco use GERD (gastroesophageal reflux disease) Bipolar 1 disorder HLD (hyperlipidemia) Metastatic primary lung cancer (Acute) Hypokalemia (Acute) Pancytopenia (Acute) Surgical History History of cholecystectomy History of bronchoscopy 11/28/23 Family History Grandmother (Maternal) Breast cancer Other Dyslipidemia Hypertension Social History Smoking Status: Current every day smoker Tobacco Type: Cigarettes Cigarettes Per Day: 7; Hx Alcohol Use: No Hx Substance Use: No Preferred Language: Maltese Bioinformatics Analyst Required: No Beliefs That Will Affect Care: None Current Living Situation: Spouse Current Living Situation Comment: Lives with her boyfriend Feels Safe at Home: Yes Review of Systems Review of Systems: At least ten systems reviewed and negative, except as noted in the HPI. Physical Exam Physical Exam: General: WD/WN, vitals as above, NAD, sitting up in bed, very pleasant. A+Ox3. Significant other at bedside. HEENT: Normocephalic, atraumatic. Conjunctivae normal. External ear and nose normal, oropharynx normal. Respiratory: Normal respiratory effort. + RLL rhonchi. + Expiratory wheezing throughout all lung child. On 4L NC. Cardiovascular: Regular rate, regular rhythm, normal peripheral pulses, no BLE edema. Abdomen/GI: Normal bowel sounds, soft, nondistended, nontender to palpation in all quadrants. Extremities/Musculoskeletal: No cyanosis or clubbing, extremities motor strength intact, moves all extremities. Neurologic: No overt focal deficits, CN's II-XI not formally tested but appear grossly intact bilaterally. Results & Data Results & Data Vital Signs (Past 12 Hours) Vital Signs Temp Pulse Resp BP Pulse Ox O2 Del Method 04/09/24 16:17 97 H 04/09/24 16:04 36.3 C L 101 H 20 171/74 H 88 L Room Air Laboratory Results Short CBC 04/09/24 Range/Units 16:31 WBC 8.29 (4.8-10.8) K/ul Hgb 14.5 (12.0-16.0) g/dl Hct 43.7 (37.0-47.0) % Plt Count 137 (130-400) K/uL BMP 04/09/24 16:31 Sodium 136 Potassium 4.1 Chloride 98 Carbon Dioxide 27 BUN 12 Creatinine 0.95 Glucose 131 H Calcium 9.9 Liver Function 04/09/24 Range/Units 16:31 Total Bilirubin 0.7 (0.2-1.0) mg/dl AST 24 (13-39) U/L ALT 18 (7-52) U/L Alkaline Phosphatase 84 (34-104) U/L Albumin 4.1 (3.4-5.0) gm/dl Diagnostic Findings EXAM EXAM: CT CHEST W CONTRAST DATE TIME: 04/09/2024 - 04/09/2024 10:30 am TECHNIQUE IV Contrast: IV contrast was used. HISTORY NSCLC, increased SOB, cough, wheeze and hypoxia, currently being treated for suspected keytruda induced pneumonitis COMPARISON CT scan dated 03/03/2024 FINDINGS LINES AND DEVICES: None. LUNGS: The spiculated nodule in the right upper lobe has increased in size, now measuring approximately 2.8 x 2.5 cm, compared to 2.5 x 2.1 cm previously. Additional previously described subcentimeter pulmonary nodules appear grossly unchanged. Peripheral ground-glass opacities in both lungs, left greater than right, demonstrate interval improvement. However, there is now complete atelectasis/consolidation of the right lower lobe. LARGE AIRWAYS: There is debris within the bronchus intermedius as well as the right middle and lower lobar bronchi, noting obstruction in the right lower lobe. PLEURA: No pleural effusions. VESSELS: Within normal limits. HEART: Normal size. No pericardial effusion. MEDIASTINUM AND PEMA: There is progressive mediastinal and bilateral hilar lymphadenopathy. For example, the previously described 2.1 x 2.5 cm right paratracheal lymph node now measures 2.9 x 3.1 cm. CHEST WALL/SOFT TISSUES: Within normal limits. UPPER ABDOMEN: The known hepatic metastatic disease appears progressed. The patient is status post cholecystectomy. BONES: Degenerative changes. IMPRESSION IMPRESSION 1. New complete atelectasis/consolidation of the right lower lobe, noting debris within associated bronchi, suggesting aspiration/pneumonia. 2. Progressive malignancy, as above. BONES: Degenerative changes. IMPRESSION IMPRESSION 1. New complete atelectasis/consolidation of the right lower lobe, noting debris within associated bronchi, suggesting aspiration/pneumonia. 2. Progressive malignancy, as above. Medications Administered Discontinued Medications Piperacillin Sod/Tazobactam Sod (Zosyn) 4.5 gm in 100 mls @ 200 mls/hr IV NOW ONE; Protocol Stop: 04/09/24 16:45 Last Admin: 04/09/24 16:41 Dose: 200 mls/hr Documented By: JORDAN Sodium Chloride (Nss) 1,000 mls @ 999 mls/hr IV .Q1H1M ONE Stop: 04/09/24 17:16 Last Admin: 04/09/24 16:41 Dose: 999 mls/hr Documented By: MATTK Code Status & VTE Plan Code Status FULL CODE (1) Metastatic primary lung cancer Laterality: unspecified laterality Qualified Code(s): C34.90 - Malignant neoplasm of unspecified part of unspecified bronchus or lung
--- NOTE | 2024-04-09 17:56 | Electrocardiogram Report ---
Test Reason : Blood Pressure : */* mmHG Vent. Rate : 85 BPM Atrial Rate : 85 BPM P-R Int : 132 ms QRS Dur : 74 ms QT Int : 358 ms P-R-T Axes : 57 15 27 degrees QTcB Int : 426 ms Normal sinus rhythm Normal ECG Confirmed by Jimmy Morgan ([id number]) on 04/09/2024 5:56:33 PM Referred By: Confirmed By: Jimmy Morgan
--- NOTE | 2024-04-09 18:30 | XRay Report ---
Clinical History: Pneumonia Technique: A frontal view of the chest was obtained Findings: There is mild patchy opacity in the left lower lobe that may be due to pneumonia. The heart is mildly enlarged. No definite pleural effusion or pneumothorax is seen. There is no definite pulmonary nodule. No fracture is noted. No foreign body is seen Impression: 1. Suspected left lower lobe pneumonia 2. Cardiomegaly Electronically signed by Supa Velázquez 04-09-2024 6:30 PM
[2024-04-09 18:35] LABS: Adenovirus PCR Not Detected (NotDetected); Bordetella parapertussis PCR Not Detected (NotDetected); Bordetella pertussis PCR Not Detected (NotDetected); Chlamydia pneumoniae PCR Not Detected (NotDetected); Coronavirus 229E PCR Not Detected (NotDetected); Coronavirus CoV-2 (COVID19)PCR Not Detected (NotDetected); Coronavirus HKU1 PCR Not Detected (NotDetected); Coronavirus NL63 PCR Not Detected (NotDetected); Coronavirus OC43PCR Not Detected (NotDetected); Human Metapneumovirus PCR Not Detected (NotDetected); Influenza A (H1 2009) PCR DETECTED (NotDetected); Influenza B PCR Not Detected (NotDetected); Mycoplasma pneumoniae PCR Not Detected (NotDetected); Parainfluenza Virus 1 PCR Not Detected (NotDetected); Parainfluenza Virus 2 PCR Not Detected (NotDetected); Parainfluenza Virus 3 PCR Not Detected (NotDetected); Parainfluenza Virus 4 PCR Not Detected (NotDetected); Respiratory Syncytial VirusPCR Not Detected (NotDetected); Rhinovirus/Enterovirus PCR Not Detected (NotDetected)
[2024-04-09] MEDS ORDERED: MAGNESIUM HYDROXIDE SUSP 30 ML UDC PO PRN (21:03)
[2024-04-09] MEDS ORDERED: POLYETHYLENE (MIRALAX) 17 GM PACK PO PRN (21:03)
[2024-04-09] MEDS ORDERED: ACETAMINOPHEN 325 MG TAB PO PRN (21:03)
[2024-04-09] MEDS: HEPARIN SOD 5,000 UNIT/0.5 ML VIAL SQ SCH (22:06)
[2024-04-09] MEDS: PIPERACILLIN/TAZOBACTAM 4.5 GM/100 ML BAG IV SCH (22:06)
[2024-04-09] MEDS: lamoTRIgine 100 MG TAB PO SCH (23:17)
--- OUTSIDE RECORDS SUMMARY | 2024-04-10 00:51 | External Medical Summary ---
Author Name Unknown Address Unknown Organization [id number]:[facility] [place] - [facility] [address] [facility] [id number] Laboratory Report Ordering Provider Test Date Status JARED MAGAÑA 04/08/2024 09:49:53 Final Observation Date Value Abnormality Reference (Units ) Status WBC, Total 04/08/2024 09:49:53 9.79 4.00-10.80 (K/uL) Final RBC 04/08/2024 09:49:53 4.33 3.85-5.15 (M/uL) Final Hemoglobin 04/08/2024 09:49:53 15.2 12.0-15.3 (g/dL) Final HCT 04/08/2024 09:49:53 49.0 Above high normal 36.0-45.2 (%) Final MCV 04/08/2024 09:49:53 113.2 81.5-97.5 (fL) Final MCH 04/08/2024 09:49:53 35.1 27.0-34.0 (pg) Final MCHC 04/08/2024 09:49:53 31.0 32.0-36.0 (g/dL) Final RDW 04/08/2024 09:49:53 16.0 11.5-15.5 (%) Final Platelets 04/08/2024 09:49:53 140 140-400 (K/uL) Final MPV 04/08/2024 09:49:53 10.9 6.6-11.1 (fL) Final Nucleated erythrocytes/100 leukocytes [Ratio] in Blood by Automated count 04/08/2024 09:49:53 0 <=0 (/100 WBCs) Final Performing Location [facility] [place] - [address] [place] [id number]
--- OUTSIDE RECORDS SUMMARY | 2024-04-10 00:51 | External Medical Summary ---
Author Name Unknown Address Unknown Organization [id number]:[facility] [place] [facility] [address] [place] [address] Laboratory Report Ordering Provider Test Date Status JARED MAGAÑA 03/26/2024 09:53:48 Final Observation Date Value Abnormality Reference (Units ) Status WBC, Total 03/26/2024 09:53:48 11.09 Above high normal 4.00-10.80 (K/uL) Final RBC 03/26/2024 09:53:48 3.88 3.85-5.15 (M/uL) Final Hemoglobin 03/26/2024 09:53:48 13.6 12.0-15.3 (g/dL) Final HCT 03/26/2024 09:53:48 44.5 36.0-45.2 (%) Final MCV 03/26/2024 09:53:48 114.7 81.5-97.5 (fL) Final MCH 03/26/2024 09:53:48 35.1 27.0-34.0 (pg) Final MCHC 03/26/2024 09:53:48 30.6 32.0-36.0 (g/dL) Final RDW 03/26/2024 09:53:48 18.6 11.5-15.5 (%) Final Platelets 03/26/2024 09:53:48 172 140-400 (K/uL) Final MPV 03/26/2024 09:53:48 11.2 6.6-11.1 (fL) Final Nucleated erythrocytes/100 leukocytes [Ratio] in Blood by Automated count 03/26/2024 09:53:48 0 <=0 (/100 WBCs) Final Performing Location [facility] [place] [address] [place] [id number]
--- OUTSIDE RECORDS SUMMARY | 2024-04-10 00:51 | External Medical Summary | Summary of Care ---
Author Name Unknown Organization [facility] Address [address] [place] [address] Phone [phone] Care Team Providers Care Phone Representative Name Role Phone NaiduRenetta philip Primary Care Provider Reason for Visit * Reason Onset Date Comments Medication Refill 04/01/2024 Encounter Details Date Type Department Care Team (Late st Contact Info) Description 04/01/2024 Refill Hematology/Oncology [facility] [place] [address] [facility] [place] [address] Consuelo Jarvis CRNP [address] [facility] [place] [address] Drug-induced pneumonitis Allergies Active Allergy Reactions Criticality Noted Date Comments Levofloxacin Rash 02/17/2024 documented as of this encounter (statuses as of 04/01/2024) Medications lamoTRIgine 100 MG Oral Tablet (LaMICtal) [...] Blister Dosing Unit 5 09/25/19 24 Active dexAMETHasone 4 MG Oral Tablet [...] if needed 2 Tablet 12/18/19 24 Active Pantoprazole Sodium 40 MG Oral Tablet Delayed Release (Protonix)Indic ations:Dysphagi a, unspecified type Take 1 Tablet by mouth in the morning. 30 minutes before the first meal of the day. Do not crush, split or chew the tablet. 90 Tablet 1 02/04/20 24 Active Folic Acid 1 MG Oral TabletIndicatio ns:Malignant neoplasm of upper lobe of right lung (HCC),Metastasi s to mediastinal lymph node (HCC) Take 1 Tablet by mouth in the morning. 90 Tablet 3 02/07/20 24 Active Azithromycin 250 MG Oral Tablet (Zithromax Z-Ayaz)Indicatio ns:Pneumonia due to infectious organism, unspecified laterality, unspecified part of lung Take two tablets by mouth on first day, then 1 tablet daily until gone 6 Tablet 02/13/20 24 Active Sulfamethoxazol e-Trimethoprim 800-160 MG Oral Tablet (Bactrim DS)Indications: Malignant neoplasm of upper lobe of right lung (HCC),Metastasi s to mediastinal lymph node (HCC),Drug-moses siobhan pneumonitis One tab 3 days a week ( Saturday,Saturday and Saturday) 21 Tablet 3 03/05/19 25 Active Albuterol Sulfate HFA 108 (90 Base) MCG/ACT Inhalation Aerosol SolutionIndicat ions:Tobacco use,SOB (shortness of breath) Inhale 2 Puffs by mouth every 6 hours as needed for Dyspnea or Wheezing. 18 g 12 03/23/19 25 Active predniSONE 10 MG Oral Tablet (Deltasone)Racquel cations:Drug-in duced pneumonitis Take 3 Tablets by mouth in the morning. Or as directed by Oncology office. 200 Tablet 04/01/19 25 Active predniSONE 10 MG Oral Tablet (Deltasone)Racquel cations:Drug-in duced pneumonitis Take 6 Tablets by mouth in the morning. Or as directed by Oncology office. 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 Overview (06/15/2022): PFTs reflect more of a restrictive pattern Tobacco use disorder 06/15/2022 documented as of this encounter (statuses as of 04/01/2024) Resolved Problems Problem Noted Date Diagnosed Date Resolved Date Mass of right lung 11/28/2023 Restrictive lung disease 06/15/2022 Depression 05/02/2012 06/15/2022 Generalized anxiety disorder 01/14/2012 06/15/2022 documented as of this encounter (statuses as of 04/01/2024) Immunizations Name Administration Dates Next Due Pneumococcal Polysaccharide PPV23 (Pneumovax) Seasonal Influenza Vac., MDV, IM, 0.5 mL (Fluzon e) 12/14/2011 TDAP (age 10 and older)(Boostrix) 06/12/2012 documented as of this encounter Social History Tobacco Use Types Packs/Day Years Used Date Smoking Tobacco: Every Day Cigarettes 1.5 31 Smokeless Tobacco: Never Comments:1 1/2 ppd. Every da y smoker. 10/28/23. 3 cpd smoker. 03/23/2024 Alcohol Use Standard Drinks/Week Comments Not Currently [...] encounter Miscellaneous Notes * Telephone Encounter - Yogi Muñoz MD - 04/01/2024 12:09 PM EST E-prescribed Yogi Muñoz MD Hem/Onc * Telephone Encounter - Armida Chin LPN - 04/01/2024 11:34 AM ESTPending Prescriptions: Disp Refills predniSONE 10 MG Oral Tablet (Deltasone) 200 Ta*0 Sig: Take 6 Tablets by mouth in the morning. Or as directed by Oncology office. * Telephone Encounter - Armida Chin LPN - 04/01/2024 11:33 AM EST Refill request for Prednisone 10 mg tab pended below: Last Refill: 02/21/2024 Last seen: 03/27/2024 Started with Prednisone 60 mg daily. Was feeling improved and has now slowly tapered to 30 mg dailysince 03/24/24. Next Appt.: 04/09/2024 Requesting: Patient * Telephone Encounter - Criss Ricketts Viadeo - 04/01/2024 9:04 AM EST Patient is up to date for office visits. Pending Prescriptions: Disp Refills predniSONE 10 MG Oral Tablet (Deltasone) 200 Ta*0 Sig: Take 6 Tablets by mouth in the morning. Or as directed by Oncology office. Last Visit: 03/27/2024 (in office), Visit date not found (telemedicine) Next Visit: 04/09/2024 If no future appointments scheduled, and last appointment is greater than a year ago, please schedule patient for a follow-up appointment Last date the medication was ordered: 02/21/2024 Pharmacy: [id number] [id number] [facility] Is this request for a controlled substance?No it is not controlled. Urine Drug Screen:No results found for this or any previous visit. Patient Phone Numbers Labs: Lab Results Component Value Date/Time CREAT 1.2 (H) 03/26/2024 09:53 AM CREAT 1.0 09/28/2019 09:12 AM POTASSIUM 3.9 03/26/2024 09:53 AM POTASSIUM 4.0 09/28/2019 09:12 AM TSH 3.16 03/04/2024 09:48 AM LDL 75 11/05/2023 09:57 AM LDL 142 (H) 09/28/2019 09:12 AM LDLCALC 119 (A) 05/03/2014 12:00 AM ALT 30 03/26/2024 09:53 AM ALT 21 10/13/2013 12:00 AM HGBA1C 5.6 11/05/2023 09:57 AM HGBA1C 5.1 09/28/2019 09:12 AM documented in this encounter Plan of Treatment Upcoming Encounters Date Type Department Care Team (Late st Contact Info) Description 04/08/2024 9:50 AM EST Laboratory Laboratory [address] [place] [phone] [address] [place] [address] 04/09/2024 8:00 AM EST Office Visit Hematology/Oncology [address] [place] [phone] Consuelo Jarvis, JUAN [address] [place] [address] [place] [address] 04/09/2024 8:30 AM EST Hem/Onc Treatment Hematology/Oncology Treatment, [address] [phone] Amparo, Chair 9 Hem Onc [address] [address] 04/15/2024 9:30 AM EST PulmDiagnostic Pulmonary Function Lab, [facility] [address] [facility] [place] [address] [address], [address] [facility] [place] [address] 04/30/2024 9:00 AM EDT Office Visit Hematology/Oncology [address] [place] [address] Yogi Muñoz MD [address] [place] [address] 06/23/2024 9:30 AM EDT Office Visit Pulmonary Medicine, [facility] [address] [place] [address] Shiv Mann MD [address] [facility] [address] 07/21/2024 8:30 AM EDT Office Visit Family Medicine [address] [phone] [place] [address] Health Maintenance Due Date Last Done Comments COVID-19 Vaccine (#1) 1981 Hepatitis B Vaccine (1 of 3 - 19+ 3-dose series) 09/08/1995 HPV/Co-Test 2006 Pneumococcal Vaccine: Pediatrics (0 to 5 Years) and At-Risk Patients (6 to 18 Years and 19+ Years) (2 of 2 - PCV) 06/12/2013 06/12/2012 Cervical Cancer Screening 06/30/2017 Pap Smear 06/30/2017 06/30/2014, 05/20, 01/28/2006, Additional history exists Colonoscopy 2021 Fecal Occult Blood Test 2021 Sigmoidoscopy 2021 DTap/Tdap Vaccines (2 - Td or Tdap) 06/12/2022 06/12/2012 Mammogram 08/01/2023 07/31/2022, 06/18/2022 Influenza Vaccine (FLU shot) (#1) 2023 12/14/2011 Cologuard 07/05/2025 07/05/2022, 05/0 09/2022, 06/25/2022 Colorectal Cancer Screening 07/05/2025 Diabetes Screening 03/26/2027 03/26/2024, 0 03/04/2024, 02/21/2024, Additional history exists Lipid Panel 11/04/2028 11/05/2023, 03/22, 08/29/2022, Additional history exists Alpha-1 Antitrypsin Completed 11/05/2023 HPV (Gardasil) Vaccine Aged Out No lo nger eligible based on patient's age to complete this topic MENINGOCOCCAL (MENACTRA/MENVEO) Aged Out No longer eligible based on patient's age to complete this topic documented as of this encounter Medical Devices Implanted Type Area Quality Systems Engineer Device Identifier Shelf Expiration Date Model / Serial / Lot Device Perm Cntrl [id number] - [id number] Implanted:Qty: 2 on 09/30/2014 by Julio Ramírez MD at OR [facility] N/A: Fallopian Tube [employer] 03/02/2016 [id number] / / [id number] Description:Bilateral tubal documented as of this encounter Visit Diagnoses Diagnosis Drug-induced pneumonitis Pneumonia, organism unspecified documented in this encounter Care Teams Phone Representative Relationship Specialty Start Date End Date Renetta Naidu DO [address] [place] [address] [place] [phone] PCP - General Internal Medicine 11/12/23 documented as of this encounter
--- OUTSIDE RECORDS SUMMARY | 2024-04-10 00:51 | External Medical Summary | Summary of Care ---
Author Name Unknown Organization [facility] Address [address] [facility] [address] Phone [phone] Care Team Providers Care Seasonal Delivery Driver Name Role Phone NaiduRenetta philip Primary Care Provider Reason for Visit * Reason Onset Date Comments Advice 04/06/2024 Re: oxygen sat Encounter Details Date Type Department Care Team (Late st Contact Info) Description 04/06/2024 Telephone Pulmonary Medicine Shahzad Wong [address] [place] [address] Shiv Mann MD [address] [place] [address] Advice (Re: oxygen sat) Allergies Active Allergy Reactions Criticality Noted Date Comments Levofloxacin Rash 02/17/2024 documented as of this encounter (statuses as of 04/07/2024) Medications lamoTRIgine 100 MG Oral Tablet (LaMICtal) [...] 30 Blister Dosing Unit 5 4 Active dexAMETHasone 4 MG Oral [...] MRI if needed 2 Tablet 4 Active Pantoprazole Sodium 40 MG Oral Tablet Delayed Release (Protonix)Indic ations:Dysphagi a, unspecified type Take 1 Tablet by mouth in the morning. 30 minutes before the first meal of the day. Do not crush, split or chew the tablet. 90 Tablet 1 4 Active Folic Acid 1 MG Oral TabletIndicatio ns:Malignant neoplasm of upper lobe of right lung (HCC),Metastasi s to mediastinal lymph node (HCC) Take 1 Tablet by mouth in the morning. 90 Tablet 3 4 Active Azithromycin 250 MG Oral Tablet (Zithromax Z-Ayaz)Indicatio ns:Pneumonia due to infectious organism, unspecified laterality, unspecified part of lung Take two tablets by mouth on first day, then 1 tablet daily until gone 6 Tablet 4 Active Sulfamethoxazol e-Trimethoprim 800-160 MG Oral Tablet (Bactrim DS)Indications: Malignant neoplasm of upper lobe of right lung (HCC),Metastasi s to mediastinal lymph node (HCC),Drug-moses siobhan pneumonitis One tab 3 days a week ( Saturday,Saturday and Saturday) 21 Tablet 3 5 Active Albuterol Sulfate HFA 108 (90 Base) MCG/ACT Inhalation Aerosol SolutionIndicat ions:Tobacco use,SOB (shortness of breath) Inhale 2 Puffs by mouth every 6 hours as needed for Dyspnea or Wheezing. 18 g 12 5 Active predniSONE 10 MG Oral Tablet (Deltasone)Racquel cations:Drug-in duced pneumonitis Take 3 Tablets by mouth in the morning. Or as directed by Oncology office. 200 Tablet 5 Active Hospital, Clinic, or Other Facility Administered [...] as of this encounter (statuses as of 04/07/2024) Active Problems Problem Noted Date Diagnosed Date [...] as of this encounter (statuses as of 04/07/2024) Resolved Problems Problem Noted Date Diagnosed Date Resolved Date Mass of right lung 11/28/2023 Restrictive lung disease 06/15/2022 Depression 05/02/2012 06/15/2022 Generalized anxiety disorder 01/14/2012 06/15/2022 documented as of this encounter (statuses as of 04/07/2024) Immunizations Name Administration Dates Next Due Pneumococcal Polysaccharide PPV23 (Pneumovax) Seasonal Influenza Vac., MDV, IM, 0.5 mL (Fluzon e) 12/14/2011 TDAP (age 10 and older)(Boostrix) 06/12/2012 documented as of this encounter Social History Tobacco Use Types Packs/Day Years Used Date Smoking Tobacco: Every Day Cigarettes 1.5 31 Smokeless Tobacco: Never Comments:1 12 ppd. Every da y smoker. 10/28/23. 3 [...] Telephone Encounter - Cass Cisse LPN - 04/06/2024 2:53 PM EST I relayed the message to Dr Mann. She advised that the pt increase her oxygen while active if her sat is below 89%. She was advised to keep her sats between 89-94%. She should reduce oxygen while at rest to maintain sats in the desired range. If she is not able to keep her sats in that range, orif she notes low oxygen levels even after increasing her liter flow, she should call us. She verbalized understanding of the information. * Telephone Encounter - Jessie Arita OSA - 04/06/2024 12:07 PM EST Patient's oxygen level when moving around is 86. Patient asking if she should raise the oxygen level. Please call [phone]. documented in this encounter Plan of Treatment Upcoming Encounters Date Type Department Care Team (Late st Contact Info) Description 04/08/2024 9:50 AM EST Laboratory Laboratory [address] [place] [phone] [place] [address] 04/09/2024 8:00 AM EST Office Visit Hematology/Oncology Ruma Amparo [place] 200 [facility] [place] [phone] Consuelo Jarvis CRNP 400 [facility] [place] [address] 04/09/2024 8:30 AM EST Hem/Onc Treatment Hematology/Oncology Treatment, [place] 200 [facility] [place] [phone] Amparo, Chair 9 Hem Onc [address] [place] [address] 04/15/2024 9:30 AM EST [facility] [place] 132 [facility] [place] [address] [address], [address] [facility] [place] [address] 04/30/2024 9:00 AM EDT Office Visit Hematology/Oncology Román Christensen [address] [place] [phone] Yogi Muñoz MD 200 [facility] [place] [address] 06/23/2024 9:30 AM EDT Office Visit Pulmonary Medicine, [facility] [place] [address] Shiv Mann MD [address] [place] [address] 07/21/2024 8:30 AM EDT Office Visit Family Medicine [address] [place] [address] [address] [place] [address] Health Maintenance Due Date Last Done Comments [...] on patient's age to complete this topic Meningitis B Vaccine (Bexsero/Trumemba) Aged Out No longer eligible based on patient's age to complete this topic documented as of this encounter Medical Devices Implanted Type Area Die Maker Trim Device Identifier Shelf Expiration Date Model / Serial / Lot Device Perm Cntrl [id number] - [id number] Implanted:Qty: 2 on 09/30/2014 by Julio Ramírez MD at OR [facility] N/A: Fallopian Tube [employer] 03/02/2016 [id number] / [id number] Description:Bilateral tubal documented as of this encounter Care Teams Seasonal Delivery Driver Relationship Specialty Start Date End Date Renetta Naidu DO [address] [place] [address] [place] [address] PCP - General Internal Medicine 11/12/23 documented as of this encounter
--- OUTSIDE RECORDS SUMMARY | 2024-04-10 00:51 | External Medical Summary | Summary of Care ---
Author Name Unknown Organization [facility] Address [address] [place] [address] Phone [phone] Care Team Providers Care Oracle Drm Consultant Name Role Phone NaiduMaciejRenetta Violeta SHIPMAN Primary Care Provider Reason for Visit * Reason Comments Follow Up Follow up Encounter Details Date Type Department Care Team (Late st Contact Info) Description 03/27/2024 9:00 AM EST Office Visit Hematology/Oncology [facility] 200 [facility] [place] [address] Consuelo Jarvis CRNP [facility] [address] Malignant neoplasm of upper lobe of right lung (HCC)*; Metastasis to mediastinal lymph node (HCC); 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); Drug-induced pneumonitis Allergies Active Allergy Reactions Criticality Noted Date Comments Levofloxacin Rash 02/17/2024 documented as of this encounter (statuses as of 03/27/2024) Medications lamoTRIgine 100 MG Oral Tablet (LaMICtal) [...] 1 tablet daily until gone 6 Tablet 12/26/202 4 Active predniSONE 10 MG Oral Tablet (Deltasone)Racquel cations:Drug-in duced pneumonitis Take 6 Tablets by mouth in the morning. Or as directed by Oncology office. 200 Tablet 5 Active Sulfamethoxazol e-Trimethoprim 800-160 MG Oral Tablet [...] or Wheezing. 18 g 12 5 Active Hospital, Clinic, or Other Facility [...] as of this encounter (statuses as of 03/27/2024) Active Problems Problem Noted Date Diagnosed Date [...] as of this encounter (statuses as of 03/27/2024) Resolved Problems Problem Noted Date Diagnosed Date Resolved Date Mass of right lung 11/28/2023 Restrictive lung disease 06/15/2022 Depression 05/02/2012 06/15/2022 Generalized anxiety disorder 01/14/2012 06/15/2022 documented as of this encounter (statuses as of 03/27/2024) Immunizations Name Administration Dates Next Due Pneumococcal Polysaccharide PPV23 (Pneumovax) Seasonal Influenza Vac., MDV, IM, 0.5 mL (Fluzon e) 12/14/2011 TDAP (age 10 and older)(Boostrix) 06/12/2012 documented as of this encounter Social History Tobacco Use Types Packs/Day Years Used Date Smoking Tobacco: Every Day Cigarettes 1.5 31 Smokeless Tobacco: Never Comments:1 02/19 ppd. Every da y smoker. 10/28/23. 3 [...] Sign Reading Time Taken Comments Blood Pressure 142/79 03/27/2024 8:48 AM EST Pulse 99 03/27/2024 8:48 AM EST Temperature 35.9 C (96.7 F) 03/27/2024 8:48 AM ES T Respiratory Rate - - Oxygen Saturation 85% 03/27/2024 8:48 AM EST Inhaled Oxygen Concentration - - Weight 64.1 kg (141 lb 4.8 oz) 03/27/2024 8:48 A M EST Height - - Body Mass Index 26.7 03/23/2024 9:21 AM EST documented in this encounter Progress Notes * Consuelo Jarvis CRNP - 03/27/2024 9:00 AM EST Images from the original note were not included. Hematology/Oncology Outpatient Clinic note [facility] [address] [place] [address] Name: Sarah Ponce Date: 03/26/2024 CHIEF COMPLAINT: Sarah Ponce is a 48 [...] actionable mutation -negative for EGFR and ROS1. Keytruda induced pneumonitis DATE OF DIAGNOSIS: 11/28/23 CURRENT TREATMENT: Alimta, carboplatin, Keytruda every 21 days (12/13/23 - ) - currently on hold during treatment of pneumonitis Vitamin B12 injection every 9 weekly Folic acid 1 mg every day. Prednisone 60 mg daily since 02/21/24 - 03/12/2024 --> advised him to cut down prednisone to 40 mg every day as improvement of the pulmonary symptoms noted. - tapered to 30 mg daily on 03/24/24 03/05/2024 --> starting Bactrim prophylaxis DIAGNOSTIC WORKUP: She has increasing shortness of [...] depression. She is on Lamictal and Lybalvi Interval History: Patient was hospitalized at [facility] 02/07/24 - 02/09/24. Now since early February of 2023, she is on oral prednisone for suspected immunotherapy induced pneumonitis, her pulse ox was dropped down to around 84, nowadays around 90% on room air, does come shortness of breath, reviewed the latest CT scan of the chest which was compared with the previous imaging studies done at [facility], slight improvement of the pneumonitis noted. Improvement of the previously noted right upper lobe lung mass and lymphadenopathy in the chest. Improvement of the pulmonary symptoms noted in the last one week while on prednisone at 60 mg per day. Would like to cut down to 40 mg per day starting from today She will update us in about 1 week and with further improvement of the pulmonary symptoms, would like to cut down prednisone by 10 mg every weekly. I would like to resume chemotherapy treatment in her case with Alimta and carboplatin, she would like to start in about 2 weeks' time Not planning to start Keytruda because of pneumonitis symptoms. HISTORY OF PRESENT ILLNESS: Sarah Ponce is a 48 year old female with a history as outlined above. Currently here for f/u visit today and consideration for C4D1 of treatment. Continues to have good and bad days with breathing. Saturday could not get off the couch d/t feeling so SOB. Yesterday was a better day. Has tapered to prednisone 30 mg on Saturday. Denies side effects from Prednisone. Taking Bactrim MWF. Still with a loose cough but that is much improved. Denies wheezing. Oxygen saturation usually about 84% in themornings and with exertion. At rest its in the mid 90s. Fluctuates throughout the day. Denies fevers. Continues to smoke about 3 cigarettes a day. Compliant with her inhalers. Utilizes albuterol inhal er in the mornings. Past Medical History: Diagnosis Date Bipolar 1 disorder (HCC) GERD (gastroesophageal reflux disease) Hyperlipidemia Panic disorder Past Surgical History: Procedure Laterality Date BREAST BIOPSY Left 2016 benign - no sedation BRONCHOSCOPY, DX W/ EBUS, 1-2 NODES N/A 11/28/2023 BRONCHOSCOPY, RIGID/FLEXIBLE, INCLUDE FLUORO GUIDANCE, WHEN PERFORMED; W/ EBUS GUIDED TRANSTRACH AND/OR TRANSBRONCH SAMPLING, 1 OR 2 MEDIASTINAL AND/OR HILAR LYMPH NODE STATIONS/STRUCTURES performed by Shiv Mann MD at OR [facility] HYSTEROSCOPY W/FALLOPIAN IMPLANTS N/A 09/30/2014 HYSTEROSCOPY SURGICAL BILATERAL FALLOPIAN TUBE performed by Julio Ramírez MD at OR [facility] INFORMATION cyst removal on chest. REMOVE [...] 1 1/2 ppd. Every day smoker. 10/28/23. 3 cpd smoker. 03/23/2024 Vaping Use Vaping status: Never Used Substance [...] on file Review of patient's allergies indicates: Allergen Reactions Levaquin [Levofloxacin] Rash Current Outpatient Medications Medication Sig Dispense Refill lamoTRIgine 100 MG Oral Tablet (LaMICtal) TAKE 1 TABLET BY MOUTH 2 TIME(S) PER DAY Lybalvi 20-10 MG Oral Tablet ONE TABLET BY MOUTH AT BEDTIME FOR MOOD Trelegy Ellipta 200-62.5-25 MCG/ACT Aerosol Powder Breath Activated (Csgyuetklou-Cdpkbuaxxhvy-Eksyljocle) Inhale 1 Puff by mouth in the morning. 30 Blister Dosing Unit 5 dexAMETHasone 4 MG Oral Tablet (Decadron) [...] tabletat MRI if needed 2 Tablet 0 Pantoprazole Sodium 40 MG Oral Tablet Delayed Release (Protonix) Take 1 Tablet by mouth in the morning. 30 minutes before the first meal of the day. Do not crush, split or chew the tablet. 90 Tablet 1 Folic Acid 1 MG Oral Tablet Take 1 Tablet by mouth in the morning. 90 Tablet 3 Azithromycin 250 MG Oral Tablet (Zithromax Z-Ayaz) Take two tablets by mouth on first day, then 1 tablet daily until gone 6 Tablet 0 predniSONE 10 MG Oral Tablet (Deltasone) Take 6 Tablets by mouth in the morning. Or as directed by Oncology office. 200 Tablet 0 Sulfamethoxazole-Trimethoprim 800-160 MG Oral Tablet (Bactrim DS) One tab 3 days a week ( Saturday,Saturday and Saturday) 21 Tablet 3 Albuterol Sulfate HFA 108 (90 Base) MCG/ACT Inhalation Aerosol Solution Inhale 2 Puffs by mouth every 6 hours as needed for Dyspnea or Wheezing. 18 g 12 Current Facility-Administered Medications Medication Dose Route Frequency Provider Last Rate Last Admin Albuterol Sulfate (Proventil) (5 MG/ML) 0.5% *conc* inhalation solution 2.5 mg 2.5 mg Nebulizer PRN Albuterol Sulfate (Proventil) (2.5 MG/3ML) 0.083% inhalation solution 2.5 mg 2.5 mg Nebulizer PRN 2.5 mg at 11/20/23 1418 REVIEW OF SYSTEMS: See HPI - otherwise negative OBJECTIVE: Filed Vitals: 03/27/24 0848 BP: 142/79 Pulse: 99 Temp: 35.9 C (96.7 F) TempSrc: Tympanic SpO2: 85% Weight: 64.1 kg (141 lb 4.8 oz) Wt Readings from Last 5 Encounters: 03/27/24 64.1 kg (141 lb 4.8 oz) 03/23/24 64.9 kg (143 lb) 03/12/24 64.5 kg (142 lb 4.8 oz) 03/05/24 65.8 kg (145 lb 1.6 oz) 02/27/24 69.1 kg (152 lb 4.8 oz) PHYSICAL EXAM: ECOG: Performance Status 1 = 80-90% Symptoms but nearly ambulatory General Appearance: No acute distress Lymph Nodes: Normal - No palpable lymph nodes in the neck or supraclavicular areas Lungs/Thorax: Diminished throughout to auscultation, mild wheeze noted to RLL Heart: Normal - Regular rate and rhythm, normal S1, S2, no appreciable murmurs Pulses/Extremities: Normal - 2+ throughout and symmetrical, no edema Neurologic: Normal - Grossly intact LABS: Results for orders placed or performed in visit on 03/26/24 COMPREHENSIVE METABOLIC PANEL Result Value Ref Range BUN 14 6 - 20 mg/dL CREATININE 1.2 (H) 0.5 - 1.0 mg/dL EGFR 59 (L) >=60 mL/min SODIUM 140 135 - 146 mmol/L POTASSIUM 3.9 3.5 - 5.1 mmol/L CHLORIDE 100 98 - 107 mmol/L CO2 26 22 - 32 mmol/L ANION GAP 14 7 - 15 mmol/L GLUCOSE 112 70 - 120 mg/dL Albumin 4.2 3.8 - 5.0 g/dL AST 27 10 - 35 U/L Alkaline Phosphatase 89 35 - 130 U/L Bilirubin, Total 0.4 <=1.2 mg/dL CALCIUM 9.5 8.4 - 10.2 mg/dL Protein 7.1 6.0 - 8.3 g/dL ALT 30 10 - 35 U/L CBC Result Value Ref Range WBC 11.09 (H) 4.00 - 10.80 K/uL RBC 3.88 3.85 - 5.15 M/uL HGB 13.6 12.0 - 15.3 g/dL HCT 44.5 36.0 - 45.2 % MCV 114.7 81.5 - 97.5 fL MCH 35.1 27.0 - 34.0 pg MCHC 30.6 32.0 - 36.0 g/dL RDW 18.6 11.5 - 15.5 % PLT 172 140 - 400 K/uL MPV 11.2 6.6 - 11.1 fL nRBCs 0 <=0 /100 WBCs DIFFERENTIAL, AUTOMATED Result Value Ref Range WBC 11.09 (H) 4.00 - 10.80 K/uL Neutrophils % 76.1 (H) 40.0 - 75.0 % Lymphocytes % 14.7 (L) 18.0 - 42.0 % Monocytes % 6.6 1.0 - 11.0 % Eosinophils % 1.2 0.0 - 6.0 % Basophils % 0.3 0.0 - 2.0 % Immature Granulocytes % 1.1 0.0 - 2.0 % Absolute Neutrophils 8.45 (H) 1.80 - 7.70 K/uL Absolute Lymphocytes 1.63 1.00 - 4.80 K/ul Absolute Monocytes 0.73 0.00 - 1.10 K/uL Absolute Eosinophils 0.13 0.00 - 0.70 K/uL Absolute Basophils 0.03 0.00 - 0.20 K/uL Absolute Immature Granulocytes 0.12 0.00 - 0.20 K/uL IMPRESSION/PLAN: Non-small cell lung cancer, 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 Presented with severe SOB. Treated for bilateral pneumonia with IV antibiotics. Was then discharged and completed a course of Augmentin and Azithromycin earlier this week. Also received 2 units of PRBCs during admission. Noticed no clinical improvement in SOB or wheezing. Since 1/3/25 being treated for suspected keytruda induced pneumonitis. Started with Prednisone 60 mg daily. Was feeling improved and has now slowly tapered to 30 mg daily since 03/24/24. Patient again noting increase in SOB. O2 sats dropping into the mid 80s on exertion. Quickly recovers with rest. Cough and wheezing remains improved. CT Chest completed 03/03/24 showing slight improvement in signs of pneumonitis. Patient was recently evaluated by pulmonary as well. Has been ordered home oxygen at [facility]L [place] which isbeing delivered on Saturday. Also planning NPOX. Will hold chemotherapy today and have patient return next week on oxygen to evaluate for improvement in symptoms and plan to resume systemic therapy. If symptoms still have not improved will considerfor repeat CT Chest. Will continue prednisone 30 mg daily at this time. Continue bactrim prophylaxis. Smoking cessation strongly encouraged. RTC in four weeks with physician for chemo return JUAN Gray documented in this encounter Nursing Notes * Krystal Carter CMA - 03/27/2024 8:49 AM EST Patient identifed by name and [...] it for you? ALREADY ACTIVE Filed Vitals: 03/27/24 0848 BP: 142/79 Pulse: 99 Temp: 35.9 C (96.7 F) TempSrc: Tympanic SpO2: 85% Weight: 64.1 kg (141 lb 4.8 oz) Patient was instructed to not get [...] Team (Late st Contact Info) Description 04/01/2024 10:00 AM EST Laboratory Laboratory [address] [place] [phone] [place], [address] [place] [address] 04/02/2024 8:30 AM EST Office Visit Hematology/Oncology [facility] 200 [facility] [place] [phone] Consuelo Jarvis CRNP 400 [facility] [place] [id number] 04/02/2024 9:15 AM EST Hem/Onc Treatment Hematology/Oncology Treatment, [place] [address] [facility] [address] [place] [phone] Amparo, Chair 8 Hem Onc [address] [place] [address] 04/15/2024 9:30 AM EST PulmDiagnostic Pulmonary Function Lab, [facility] 132 [facility] [place] [address] [place], P[address] [facility] [place] [address] 04/30/2024 9:00 AM EDT Office Visit Hematology/Oncology [facility] 200 [facility] [place] [phone] Yogi Muñoz MD [address] [place] [address] 06/23/2024 9:30 AM EDT Office Visit Pulmonary Medicine, [facility] 132 [facility] [place] [address] Shiv Mann MD [address] [place] [address] 07/21/2024 8:30 AM EDT Office Visit Family Medicine [address] [place] [address] [address] [place] [address] Health Maintenance Due Date Last Done Comments [...] this encounter Medical Devices Implanted Type Area Clinical Program Director Device Identifier Shelf Expiration Date Model / Serial / Lot Device Perm Cntrl [id number] - [id number] Implanted:Qty: 2 on 09/30/2014 by Juloi Ramírez MD at OR [facility] N/A: Fallopian Tube [employer] 03/02/2016 [id number] / / [id number] Description:Bilateral tubal documented as of this encounter Visit Diagnoses Diagnosis Malignant neoplasm of upper lobe of right lung (HCC)- Primary Malignant neoplasm of upper lobe, bronchus or lung 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
--- OUTSIDE RECORDS SUMMARY | 2024-04-10 00:51 | External Medical Summary | Summary of Care ---
Author Name Unknown Organization [facility] Address [address] [facility] [place] [address] Phone [phone] Care Team Providers Care Manager Relocation Name Role Phone Renetta Naidu DO Primary Care Provider [phone] Reason for Visit * Reason Comments Outpatient Testing Encounter Details Date Type Department Care Team (Late st Contact Info) Description 04/08/2024 9:50 AM EST Laboratory Laboratory [address] [place] [phone] [place] [address] Malignant neoplasm of upper lobe of right lung (HCC); Metastasis to mediastinal lymph node (HCC); Bipolar disorder, unspecified (HCC) Allergies Active Allergy Reactions Criticality Noted Date Comments Levofloxacin Rash 02/17/2024 documented as of this encounter (statuses as of 04/08/2024) Medications lamoTRIgine 100 MG Oral Tablet (LaMICtal) [...] as of this encounter (statuses as of 04/08/2024) Active Problems Problem Noted Date Diagnosed Date [...] as of this encounter (statuses as of 04/08/2024) Resolved Problems Problem Noted Date Diagnosed Date Resolved Date Mass of right lung 11/28/2023 Restrictive lung disease 06/15/2022 Depression 05/02/2012 06/15/2022 Generalized anxiety disorder 01/14/2012 06/15/2022 documented as of this encounter (statuses as of 04/08/2024) Immunizations Name Administration Dates Next Due Pneumococcal [...] Care Team (Late st Contact Info) Description 04/09/2024 8:00 AM EST Office Visit Hematology/Oncology [facility] Amparo [address] [place] [phone] Consuelo Jarvis CRNP [address] [place] [address] [place] [address] 04/09/2024 8:30 AM EST Hem/Onc Treatment Hematology/Oncology Treatment, [place] 200 [facility] [place] [phone] Amparo, Chair 9 Hem Onc [address] [place] [address] 04/15/2024 9:30 AM EST PulmDiagnostic Pulmonary Function Lab, [facility] 132 [facility] [place] [address] [place], [address]ft [address] [facility] [place] [address] 04/30/2024 9:00 AM EDT Office Visit Hematology/Oncology [facility] 200 [facility] [place] [phone] Yogi Muñoz MD 200 [facility] [place] [address] 06/23/2024 9:30 AM EDT Office Visit Pulmonary Medicine, [facility] 132 [facility] [place] [address] Shiv Mann MD [address] [facility] [place] [address] 07/21/2024 8:30 AM EDT Office Visit Family Medicine [address] [place] [phone] [address] [place] [address] Pending Results Name Type Priority Associated Diagnoses Date /Time CBC WITH WBC DIFFERENTIAL Lab STAT Malignant neoplasm of upper lobe of right lung (HCC) Metastasis to mediastinal lymph node (HCC) Bipolar disorder, unspecified (HCC) 04/08/2024 9:49 AM EST COMPREHENSIVE METABOLIC PANEL Lab STAT Malignant neoplasm of upper lobe of right lung (HCC) Metastasis to mediastinal lymph node (HCC) Bipolar disorder, unspecified (HCC) 04/08/2024 9:49 AM EST CBC Lab STAT Malignant neoplasm of upper lobe of right lung (HCC) Metastasis to mediastinal lymph node (HCC) Bipolar disorder, unspecified (HCC) 04/08/2024 9:49 AM EST DIFFERENTIAL, AUTOMATED Lab STAT Malignant neoplasm of upper lobe of right lung (HCC) Metastasis to mediastinal lymph node (HCC) Bipolar disorder, unspecified (HCC) 04/08/2024 9:49 AM EST Health Maintenance Due Date Last [...] this encounter Medical Devices Implanted Type Area Reel Cutter Device Identifier Shelf Expiration Date Model / Serial / Lot Device Perm Cntrl [id number] - [id number] Implanted:Qty: 2 on 09/30/2014 by Julio Ramírez MD at OR [facility] N/A: Fallopian Tube [employer] 03/02/2016 [id number] / / [id number] Description:Bilateral tubal documented as of this encounter Visit Diagnoses Diagnosis Malignant neoplasm of upper lobe of right lung (HCC) Malignant neoplasm of upper lobe, bronchus or lung 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
--- OUTSIDE RECORDS SUMMARY | 2024-04-10 00:51 | External Medical Summary ---
Author Name Unknown Address Unknown Organization K01:[facility] [address] [facility] [place] [address] Laboratory Report Ordering Provider Test Date Status JARED MAGAÑA 04/08/2024 09:49:53 Final Observation Date Value Abnormality Reference (Units ) Status BUN 04/08/2024 09:49:53 11 6-20 (mg/dL) Final Creatinine 04/08/2024 09:49:53 1.0 0.5-1.0 (mg/dL) Final Glomerular filtration rate/1.73 sq M.predicted [Volume Rate/Area] in Serum, Plasma or Blood by Creatinine-based formula (CKD-EPI) 04/08/2024 09:49:53 67 >=60 (mL/min) Final eGFR is calculated based on the CKD-EPI 2020 equation. Sodium 04/08/2024 09:49:53 142 135-146 (m mol/L) Final Potassium 04/08/2024 09:49:53 3.9 3.5-5.1 (m mol/L) Final Cl 04/08/2024 09:49:53 100 98-107 (mm ol/L) Final CO2 04/08/2024 09:49:53 28 22-32 (mmo l/L) Final Anion gap 04/08/2024 09:49:53 14 7-15 (mmol /L) Final Glucose 04/08/2024 09:49:53 85 70-120 (mg /dL) Final Albumin 04/08/2024 09:49:53 3.9 3.8-5.0 (g /dL) Final AST (Aspartate aminotransferase) 04/08/2024 09:49:53 23 10-35 (U/L) Final Alk Phos 04/08/2024 09:49:53 97 35-130 (U/ L) Final Bilirubin, Total 04/08/2024 09:49:53 0.4 <=1 .2 (mg/dL) Final Calcium 04/08/2024 09:49:53 9.8 8.4-10.2 ( mg/dL) Final Protein 04/08/2024 09:49:53 7.0 6.0-8.3 (g /dL) Final ALT (Alanine aminotransferase) 04/08/2024 09:49:53 22 10-35 (U/L) Final Performing Location LABORATORY [facility] - [facility] [address]elia [address]. [facility] [address]
--- OUTSIDE RECORDS SUMMARY | 2024-04-10 00:51 | External Medical Summary | Summary of Care ---
Author Name Unknown Organization [facility] Address [address] [place] [address] Phone [phone] Care Team Providers Care Email Deployment Specialist Name Role Phone Renetta Naidu DO Primary Care Provider Reason for Visit * Reason Comments Chemotherapy Chemo held today per provider. Encounter Details Date Type Department Care Team (Latest Contact Info) Description 03/27/2024 10:00 AM EST Hem/Onc Treatment Hematology/Oncology Treatment, [address] [phone] Amparo, Chair 1 Hem On[address] [address] Pt Consuelo- will hold chemo today, patient is to return next for Allergies Active Allergy Reactions Criticality Noted Date [...] daily until gone 6 Tablet 4 Active predniSONE 10 MG Oral Tablet [...] of this encounter Progress Notes * Mata Zazueta, RN - 03/27/2024 10:07 AM EST Pt Consuelo- will hold chemo today, patient is to return next for provider visit and potential chemo. documented in this encounter Plan of Treatment Upcoming Encounters Date Type Department Care Team (Late st Contact Info) Description 04/01/2024 10:00 AM EST Laboratory Laboratory [address] [place] [phone] [address] [place] [address] 04/02/2024 8:30 AM EST Office Visit Hematology/Oncology Rom[facility] Christensen [address] [place] [phone] Consuelo Jarvis CRNP [address] [place] [address] 04/02/2024 9:15 AM EST Hem/Onc Treatment [facility]ology[facility], [place] [facility] [phone] Amparo, Chair 8 Hem Onc [address] [place] [address] 04/15/2024 9:30 AM EST PulmDiagnostic Pulmonary Function Lab, [facility] 132 [facility] [place] [address] [place], Pft 132 [facility] [place] [address] 04/30/2024 9:00 AM EDT Office Visit Hematology/Oncology [facility] 200 [facility] [place] [phone] Yogi Muñoz MD 200 [facility] [place] [address] 06/23/2024 9:30 AM EDT Office Visit Pulmonary Medicine, [facility] 132 [facility] [place] [address] Shiv Mann MD [address] [facility] [place] [address] 07/21/2024 8:30 AM EDT Office Visit Family Medicine [address] [place] [address] Renetta Naidu [address] [place] [address] Health Maintenance Due Date Last Done Comments [...] this encounter Medical Devices Implanted Type Area Public Health Nurse Device Identifier Shelf Expiration Date Model / Serial / Lot Device Perm Cntrl [id number] - [id number] Implanted:Qty: 2 on 09/30/2014 by Julio Ramírez MD at OR [facility] N/A: Fallopian Tube [employer] 03/02/2016 [id number] / / [id number] Description:Bilateral tubal documented as of this encounter Care Teams Email Deployment Specialist Relationship Specialty Start Date End Date Renetta Naidu DO [address] [place] [address] [place] [address] PCP - General Internal Medicine 11/12/23 documented as of this encounter
--- OUTSIDE RECORDS SUMMARY | 2024-04-10 00:51 | External Medical Summary | Summary of Care ---
Author Name Unknown Organization [facility] Address [address] [place] [address] Phone [phone] Care Team Providers Care Drilling Fluids Specialist Name Role Phone Renetta Naidu DO Primary Care Provider Reason for Visit * Reason Comments Chemotherapy Chemo held Encounter Details Date Type Department Care Team (Late st Contact Info) Description 04/09/2024 8:30 AM EST Hem/Onc Treatment Hematology/Oncology Treatment, [address] [phone] Amparo, Chair 9 Hem On[address] [address] Arrived Allergies Active Allergy Reactions Criticality Noted Date Comments Levofloxacin Rash 02/17/2024 documented as of this encounter (statuses as of 04/09/2024) Medications lamoTRIgine 100 MG Oral Tablet (LaMICtal) [...] as of this encounter (statuses as of 04/09/2024) Active Problems Problem Noted Date Diagnosed Date [...] as of this encounter (statuses as of 04/09/2024) Resolved Problems Problem Noted Date Diagnosed Date Resolved Date Mass of right lung 11/28/2023 Restrictive lung disease 06/15/2022 Depression 05/02/2012 06/15/2022 Generalized anxiety disorder 01/14/2012 06/15/2022 documented as of this encounter (statuses as of 04/09/2024) Immunizations Name Administration Dates Next Due Pneumococcal [...] of this encounter Nursing Notes * Marianna Parker, RN - 04/09/2024 8:47 AM EST Patient saw Consuelo MARTINEZ, patient continues with SOB, treatment being delayed. CT chest ordered. Scheduled to see Consuelo next week, 04/16/24 and possible treatment after. documented in this encounter Plan of Treatment Upcoming Encounters Date Type Department Care Team (Late st Contact Info) Description 04/09/2024 10:30 AM EST Imaging Rad[facility] [address] [place] [address] 04/15/2024 9:20 AM EST Laboratory Laboratory, [facility] [address] [place] [address] [facility] [address] [place] [address] 04/15/2024 9:30 AM EST PulmDiagnostic Pulmonary Function Lab, [facility] [place] [address] [place], Pft [facility] [place] [address] 04/16/2024 10:00 AM EST Office Visit Hematology/Oncology [address] [place] [phone] Consuelo Jarvis CRNP [address] [place] [address] [place] [address] 04/16/2024 10:30 AM EST Hem/Onc Treatment Hematology/Oncology Treatment, [place] [facility] [phone] Amparo, Chair 6 Hem Onc [address] [place] [address] 04/30/2024 9:00 AM EDT Office Visit Hematology/Oncology [address] [phone] Yogi Muñoz MD 200 [facility] [place] [address] 06/23/2024 9:30 AM EDT Office Visit Pulmonary Medicine, [facility] [place] [address] Shiv Mann MD [address] [place] [address] 07/21/2024 8:30 AM EDT Office Visit Family Medicine [address] [place] [phone] Renetta Naidu [address] [place] [address] Health Maintenance Due Date Last Done Comments [...] 06/25/2022 Colorectal Cancer Screening 07/05/2025 Diabetes Screening 04/08/2027 04/08/2024, 0 03/26/2024, 03/04/2024, Additional history exists Lipid Panel 11/04/2028 11/05/2023, [...] this encounter Medical Devices Implanted Type Area Airport Operations Specialist Device Identifier Shelf Expiration Date Model / Serial / Lot Device Perm Cntrl [id number] - [id number] Implanted:Qty: 2 on 09/30/2014 by Julio Ramírez MD at OR [facility] N/A: Fallopian Tube [employer] 03/02/2016 [id number] / / [id number] Description:Bilateral tubal documented as of this encounter Care Teams Drilling Fluids Specialist Relationship Specialty Start Date End Date Renetta Naidu DO [address] [place] [address] [place] [address] PCP - General Internal Medicine 11/12/23 documented as of this encounter
--- OUTSIDE RECORDS SUMMARY | 2024-04-10 00:51 | External Medical Summary | Summary of Care ---
Author Name Unknown Organization [facility] Address [address] [place] [address] Phone [phone] Care Team Providers Care Tire Buster Name Role Phone Renetta Naidu DO Primary Care Provider Reason for Visit * Reason Comments Chemotherapy Chemo held today per provider. Encounter Details Date Type Department Care Team (Latest Contact Info) Description 03/27/2024 10:00 AM EST Hem/Onc Treatment Hematology/Oncology Treatment, [address] [phone] Amparo, Chair 1 Hem On[address] [address] Pt Consuelo- will hold chemo today, patient [...] Description 04/01/2024 10:00 AM EST Laboratory Laboratory [address] [place] [phone] [address] [place] [address] 04/02/2024 8:30 AM EST Office Visit Hematology/Oncology Román Christensen [address] [place] [phone] Consuelo Jarvis CRNP [address] [place] [address] 04/02/2024 9:15 AM EST Hem/Onc Treatment Hematology/Oncology Treatment, [place] 200 [facility] [phone] Amparo, Chair 8 Hem Onc [address] [place] [address] 04/15/2024 9:30 AM EST PulmDiagnostic Pulmonary Function Lab, [facility] 132 [facility] [place] [address] [place], P[place] 132 [facility] [place] [address] 04/30/2024 9:00 AM EDT Office Visit Hematology/Oncology [facility] 200 [facility] [place] [phone] Yogi Muñoz MD 200 [facility] [place] [address] 06/23/2024 9:30 AM EDT Office Visit Pulmonary Medicine, [facility] 132 [facility] [place] [address] Shiv Mann MD [address] [facility] [place] [address] 07/21/2024 8:30 AM EDT Office Visit Family Medicine [address] [place] [phone] Renetta Naidu [address] [place] [address] Health Maintenance Due Date Last Done Comments [...] this encounter Medical Devices Implanted Type Area Telecommunications Technician Device Identifier Shelf Expiration Date Model / Serial / Lot Device Perm Cntrl [id number] - [id number] Implanted:Qty: 2 on 09/30/2014 by Julio Ramírez MD at OR [facility] N/A: Fallopian Tube [employer] 03/02/2016 [id number] / / [id number] Description:Bilateral tubal documented as of this encounter Care Teams Tire Buster Relationship Specialty Start Date End Date Renetta Naidu DO [address] [place] [address] [place] [address] PCP - General Internal Medicine 11/12/23 documented as of this encounter
--- OUTSIDE RECORDS SUMMARY | 2024-04-10 00:51 | External Medical Summary | Summary of Care ---
Author Name Unknown Organization [facility] Address [address] [place] [address] Phone [phone] Care Team Providers Care Impregnating Machine Operator Name Role Phone Renetta Naidu DO Primary Care Provider Reason for Visit * Reason Comments Chemotherapy Chemo held today per provider. Encounter Details Date Type Department Care Team (Latest Contact Info) Description 03/27/2024 10:00 AM EST Hem/Onc Treatment Hematology/Oncology Treatment, [address] [phone] Amparo, Chair 1 Hem Onc [address] [address] Pt Consuelo- will hold chemo today, patient is to return next for Allergies Active Allergy Reactions Criticality Noted Date Comments Levofloxacin Rash 02/17/2024 documented as of this encounter (statuses as of 03/29/2024) Medications lamoTRIgine 100 MG Oral Tablet (LaMICtal) [...] as of this encounter (statuses as of 03/29/2024) Active Problems Problem Noted Date Diagnosed Date [...] as of this encounter (statuses as of 03/29/2024) Resolved Problems Problem Noted Date Diagnosed Date Resolved Date Mass of right lung 11/28/2023 Restrictive lung disease 06/15/2022 Depression 05/02/2012 06/15/2022 Generalized anxiety disorder 01/14/2012 06/15/2022 documented as of this encounter (statuses as of 03/29/2024) Immunizations Name Administration Dates Next Due Pneumococcal [...] Description 04/01/2024 10:00 AM EST Laboratory Laboratory [address] [place] [phone] [address] [place] [address] 04/02/2024 8:30 AM EST Office Visit Hematology/Oncology Román Christensen [address] [place] [phone] Consuelo Jarvis CRNP [address] [place] [address] [place] [address] 04/02/2024 9:15 AM EST Hem/Onc Treatment Hematology/Oncology Treatment, [place] 200 [facility] [phone] Amparo, Chair 8 Hem Onc [address] [place] [address] 04/15/2024 9:30 AM EST PulmDiagnostic Pulmonary Function Lab, [facility] 132 [facility] [place] [address] [place], [place] 132 [facility] [place] [address] 04/30/2024 9:00 AM EDT Office Visit Hematology/Oncology [facility] 200 [facility] [place] [phone] oYgi Muñoz MD 200 [facility] [place] [address] 06/23/2024 9:30 AM EDT Office Visit Pulmonary Medicine, [facility] 132 [facility] [place] [address] Shiv Mann MD [address] [facility] [place] [address] 07/21/2024 8:30 AM EDT Office Visit Family Medicine [address] [place] [phone] Renetta Naidu [address] [place] [address] Health Maintenance Due Date Last Done Comments [...] this encounter Medical Devices Implanted Type Area Fur Blowing Machine Attendant Device Identifier Shelf Expiration Date Model / Serial / Lot Device Perm Cntrl [id number] - [id number] Implanted:Qty: 2 on 09/30/2014 by Julio Ramírez MD at OR [facility] N/A: Fallopian Tube [employer] 03/02/2016 [id number] / / [id number] Description:Bilateral tubal documented as of this encounter Care Teams Impregnating Machine Operator Relationship Specialty Start Date End Date Renetta Naidu DO [address] [place] [address] [place] [address] PCP - General Internal Medicine 11/12/23 documented as of this encounter
--- OUTSIDE RECORDS SUMMARY | 2024-04-10 00:51 | External Medical Summary | Summary of Care ---
Author Name Unknown Organization [facility] Address [address] [facility] [address] Phone [phone] Care Team Providers Care Overlock Sleeve Setter Name Role Phone Renetta Naidu DO Primary Care Provider [phone] Reason for Visit * Reason Comments Outpatient Testing Encounter Details Date Type Department Care Team (Late st Contact Info) Description 03/26/2024 10:00 AM EST Laboratory Laboratory [address] [place] [phone] [place] [address] Malignant neoplasm of upper lobe of right lung (HCC); Metastasis to mediastinal lymph node (HCC); Bipolar disorder, unspecified (HCC) Allergies Active Allergy Reactions Criticality Noted Date Comments Levofloxacin Rash 02/17/2024 documented as of this encounter (statuses as of 03/26/2024) Medications lamoTRIgine 100 MG Oral Tablet (LaMICtal) [...] as of this encounter (statuses as of 03/26/2024) Active Problems Problem Noted Date Diagnosed Date [...] as of this encounter (statuses as of 03/26/2024) Resolved Problems Problem Noted Date Diagnosed Date Resolved Date Mass of right lung 11/28/2023 Restrictive lung disease 06/15/2022 Depression 05/02/2012 06/15/2022 Generalized anxiety disorder 01/14/2012 06/15/2022 documented as of this encounter (statuses as of 03/26/2024) Immunizations Name Administration Dates Next Due Pneumococcal [...] 03/27/2024 9:00 AM EST Office Visit Hematology/Oncology [facility] Amparo [address] [place] [phone] Consuelo Jarvis CRNP [address] [place] [address] [place] [address] 03/27/2024 10:00 AM EST Hem/Onc Treatment Hematology/Oncology Treatment, [place] 200 [facility] [place] [phone] Amparo, Chair 1 Hem Onc [address] [place] [address] 04/15/2024 9:30 AM EST PulmDiagnostic Pulmonary Function Lab, [facility] 132 [facility] [place] [address] [place], [place] 132 [facility] [place] [address] 04/15/2024 10:00 AM EST PulmDiagnostic Pulmonary Function Lab, [facility] 132 [facility] [place] [address] [place], [place] 132 [facility] [place] [address] 06/23/2024 9:30 AM EDT Office Visit Pulmonary Medicine, [facility] 132 [facility] [place] [address] Shiv Mann MD [address] [place] [address] 07/21/2024 8:30 AM EDT Office Visit Family Medicine [address] [place] [phone] [place] [address] Pending Results Name Type Priority Associated Diagnoses Date /Time CBC WITH WBC DIFFERENTIAL Lab STAT Malignant neoplasm of upper lobe of right lung (HCC) Metastasis to mediastinal lymph node (HCC) Bipolar disorder, unspecified (HCC) 03/26/2024 9:53 AM EST COMPREHENSIVE METABOLIC PANEL Lab STAT Malignant neoplasm of upper lobe of right lung (HCC) Metastasis to mediastinal lymph node (HCC) Bipolar disorder, unspecified (HCC) 03/26/2024 9:53 AM EST CBC Lab STAT Malignant neoplasm of upper lobe of right lung (HCC) Metastasis to mediastinal lymph node (HCC) Bipolar disorder, unspecified (HCC) 03/26/2024 9:53 AM EST DIFFERENTIAL, AUTOMATED Lab STAT Malignant neoplasm of upper lobe of right lung (HCC) Metastasis to mediastinal lymph node (HCC) Bipolar disorder, unspecified (HCC) 03/26/2024 9:53 AM EST Health Maintenance Due Date Last [...] 06/25/2022 Colorectal Cancer Screening 07/05/2025 Diabetes Screening 03/04/2027 03/04/2024, 0 02/21/2024, 02/13/2024, Additional history exists Lipid Panel 11/04/2028 11/05/2023, 03/22, 08/29/2022, Additional history exists Alpha-1 Antitrypsin Completed 11/05/2023 HPV (Gardasil) Vaccine Aged Out No lo nger eligible based on patient's age to complete this topic MENINGOCOCCAL (MENACTRA/MENVEO) Aged Out No longer eligible based on patient's age to complete this topic documented as of this encounter Medical Devices Implanted Type Area Crm Marketing Specialist Device Identifier Shelf Expiration Date Model / Serial / Lot Device Perm Cntrl [id number] - [id number] Implanted:Qty: 2 on 09/30/2014 by Julio Ramírez MD at OR [facility] N/A: Fallopian Tube [employer] 03/02/2016 [id number] / / [id number] Description:Bilateral tubal documented as of this encounter Visit Diagnoses Diagnosis Malignant neoplasm of upper lobe of right lung (HCC) Malignant neoplasm of upper lobe, bronchus or lung 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
--- OUTSIDE RECORDS SUMMARY | 2024-04-10 00:51 | External Medical Summary ---
Author Name Unknown Address Unknown Organization K01:[facility] [place] [address] [facility] [place] [address] Laboratory Report Ordering Provider Test Date Status JARED MAGAÑA 04/08/2024 09:49:53 Final Observation Date Value Abnormality Reference (Units ) Status SYNC LEUKOCYTES IN BLOOD BY AUTOMATED COUNT 04/08/2024 09:49:53 9.79 4.00-10.80 (K/uL) Final Segs 04/08/2024 09:49:53 77.5 Above high normal 40.0-75.0 (%) Final Lymphs % 04/08/2024 09:49:53 11.3 Below low normal 18.0-42.0 (%) Final Monos 04/08/2024 09:49:53 9.4 1.0-11.0 (%) Final Eosinophils 04/08/2024 09:49:53 0.9 0.0-6.0 (%) Final Basos 04/08/2024 09:49:53 0.4 0.0-2.0 (%) Final Immature Granulocyte, Percent 04/08/2024 09:49:53 0.5 0.0-2.0 (%) Final Absolute Segs 04/08/2024 09:49:53 7.58 1.80-7.70 (K/uL) Final Lymphs, absolute 04/08/2024 09:49:53 1.11 1.00-4.80 (K/ul) Final Monos, Abs 04/08/2024 09:49:53 0.92 0.00-1.10 (K/uL) Final Eos, Abs 04/08/2024 09:49:53 0.09 0.00-0.70 (K/uL) Final Basos, Abs 04/08/2024 09:49:53 0.04 0.00-0.20 (K/uL) Final Immature Granulocytes, Number 04/08/2024 09:49:53 0.05 0.00-0.20 (K/uL) Final Performing Location [facility] [place] - [facility] [address] [place] [address]
--- OUTSIDE RECORDS SUMMARY | 2024-04-10 00:52 | External Medical Summary | Summary of Care ---
Author Name Unknown Organization [facility] Address [address] [place] [place] [address] Phone [phone] Care Team Providers Care Graduate Student Instructor Name Role Phone Naidu Renetta Mcdaniel Primary Care Provider Reason for Visit * Reason Onset Date Comments Appointment 03/13/2024 Carbo/Alimta Encounter Details Date Type Department Care Team (Late st Contact Info) Description 03/13/2024 Telephone Hematology/Oncology Román Christensen [place] [address] [place] [address] Yogi Muñoz MD 200 [facility] [place] [address] Appointment (Carbo/Alimta) Allergies Active Allergy Reactions Criticality Noted Date Comments Levofloxacin Rash 02/17/2024 documented as of this encounter (statuses as of 03/20/2024) Medications lamoTRIgine 100 MG Oral Tablet (LaMICtal) [...] and Saturday) 21 Tablet 3 5 Active Hospital, Clinic, or Other Facility [...] as of this encounter (statuses as of 03/20/2024) Active Problems Problem Noted Date Diagnosed Date [...] as of this encounter (statuses as of 03/20/2024) Resolved Problems Problem Noted Date Diagnosed Date Resolved Date Mass of right lung 11/28/2023 Restrictive lung disease 06/15/2022 Depression 05/02/2012 06/15/2022 Generalized anxiety disorder 01/14/2012 06/15/2022 documented as of this encounter (statuses as of 03/20/2024) Immunizations Name Administration Dates Next Due Pneumococcal [...] Telephone Encounter - Mata Zazueta RN - 03/20/2024 3:49 PM EST Called patient to follow up with her. She states her breathing still hasn't improved. She denies this becoming worse since decreasing from 60mg to 40mg but denies any improvement. She is seeing Dr. Mann on Saturday to discuss further, we will await his note. Dr. Toni randall in case you want to follow up with Dr. Mann on Saturday/Saturday after patient is seen. * Telephone Encounter - Jad Velez OSA - 03/13/2024 8:27 AM EST Patient scheduled and aware * Telephone Encounter - Mata Zazueta, RN - 03/13/2024 7:36 AM EST Pt seen by Dr. Muñoz yesterday in clinic. Decreased prednisone from 60mg>40mg. She is to follow up in 1 week and if pulm symptoms improve will plan to decrease further. N:S- plan to follow up with patient in 1 week and taper prednisone. Plan to restart chemo in 2 weeks and follow up after she restarts. Scheduling- please call patient to schedule the following in 2 weeks: - Labs either day before or day of "CBCD,CMP" - 2HR Treatment "Alimta/Carbo C4,D1" (Toni) documented in this encounter Plan of Treatment Upcoming Encounters Date Type Department Care Team (Late st Contact Info) Description 03/23/2024 9:30 AM EST Office Visit Pulmonary Medicine, [facility] 132 [facility] [place] [address] Shiv Mann MD [address] [facility] [place] [address] 03/26/2024 10:00 AM EST Laboratory Laboratory [address] [place] [phone] [place] [address] 03/27/2024 10:00 AM EST Hem/Onc Treatment Hematology/Oncology Treatment, [address] [phone] Amparo, Chair 1 Hem Onc [address] [place] [address] 07/21/2024 8:30 AM EDT Office Visit Family Medicine [address] [place] [phone] [address] [place] [address] Health Maintenance Due Date Last Done Comments [...] encounter Medical Devices Implanted Type Area Lens Mold Setter Device Identifier Shelf Expiration Date Model / Serial / Lot Device Perm Cntrl [id number] - [id number] Implanted:Qty: 2 on 09/30/2014 by Julio Ramírez MD at OR [facility] N/A: Fallopian Tube [employer] 03/02/2016 [id number] / / [id number] Description:Bilateral tubal documented as of this encounter Care Teams Graduate Student Instructor Relationship Specialty Start Date End Date Renetta Naidu DO [address] [place] [address] [place] [id number] PCP - General Internal Medicine 11/12/23 documented as of this encounter
--- OUTSIDE RECORDS SUMMARY | 2024-04-10 00:52 | External Medical Summary | Summary of Care ---
Author Name Unknown Organization [facility] Address [address] [facility] [address] Phone [phone] Care Team Providers Care Supervisor Paper Coating Name Role Phone NaiduRenetta philip Primary Care Provider Reason for Visit * Reason Onset Date Comments Durable Medical Equipment 03/25/2024 Encounter Details Date Type Department Care Team (Late st Contact Info) Description 03/25/2024 Telephone Pulmonary Medicine Shahzad Wong [address] [place] [address] Shiv Mann MD [address] [place] [address] Durable Medical Equipment Allergies Active Allergy Reactions Criticality Noted Date Comments Levofloxacin Rash 02/17/2024 documented as of this encounter (statuses as of 03/25/2024) Medications lamoTRIgine 100 MG Oral Tablet (LaMICtal) [...] as of this encounter (statuses as of 03/25/2024) Active Problems Problem Noted Date Diagnosed Date [...] as of this encounter (statuses as of 03/25/2024) Resolved Problems Problem Noted Date Diagnosed Date Resolved Date Mass of right lung 11/28/2023 Restrictive lung disease 06/15/2022 Depression 05/02/2012 06/15/2022 Generalized anxiety disorder 01/14/2012 06/15/2022 documented as of this encounter (statuses as of 03/25/2024) Immunizations Name Administration Dates Next Due Pneumococcal [...] encounter Miscellaneous Notes * Telephone Encounter - Monika Membreno OSA - 03/25/2024 9:55 AM EST DME order for Portable conserving device submitted to [employer]. Diagnosis may not qualify Pt. No qualifying testing that I could find in chart, just note on DME order. Pt is not scheduled for a walk test until 04/15/24. documented in this encounter Plan of Treatment Upcoming Encounters Date Type Department Care Team (Late st Contact Info) Description 03/26/2024 10:00 AM EST Laboratory Laboratory [address] [place] [phone] [address] [place] [address] 03/27/2024 9:00 AM EST Office Visit Hematology/Oncology [facility] 200 [facility] [place], [place] [address] Consuelo Jarvis CRNP [address] [place] [address] 03/27/2024 10:00 AM EST Hem/Onc Treatment Hematology/Oncology Treatment, [place] 200 [facility] [phone] Amparo, Chair 1 Hem Onc [facility] 200 [facility] [place] [address] 04/15/2024 9:30 AM EST PulmDiagnostic Pulmonary Function Lab, [facility] 132 [facility] [place] [address] [place], [address] 132 [facility] [place] [address] 04/15/2024 10:00 AM EST PulmDiagnostic Pulmonary Function Lab, [facility] 132 [facility] [place] [address] [place], [address] 132 [facility] [place] [address] 06/23/2024 9:30 AM EDT Office Visit Pulmonary Medicine, [facility] 132 [facility] [place] [address] Shiv Mann MD [address] [place] [address] 07/21/2024 8:30 AM EDT Office Visit Family Medicine [address] [place] [phone] [place] [address] Health Maintenance Due Date Last Done Comments [...] this encounter Medical Devices Implanted Type Area Disulfurizer Tender Device Identifier Shelf Expiration Date Model / Serial / Lot Device Perm Cntrl [id number] - [id number] Implanted:Qty: 2 on 09/30/2014 by Julio Ramírez MD at OR [facility] N/A: Fallopian Tube [employer] 03/02/2016 [id number] / / [id number] Description:Bilateral tubal documented as of this encounter Care Teams Supervisor Paper Coating Relationship Specialty Start Date End Date NaiduRenetta philip DO [address] [place] [address] [place] [address] PCP - General Internal Medicine 11/12/23 documented as of this encounter
--- OUTSIDE RECORDS SUMMARY | 2024-04-10 00:52 | External Medical Summary | Summary of Care ---
Author Name Unknown Organization [facility] Address [address] [place] [address] Phone [phone] Care Team Providers Care Motion Pictures Cartoonist Name Role Phone Naidu Renetta Mcdaniel Primary Care Provider [phone] Reason for Visit * Reason Onset Date Comments Appointment 03/13/2024 Carbo/Alimta Encounter Details Date Type Department Care Team (Late st Contact Info) Description 03/13/2024 Telephone Hematology/Oncology Román Christensen [place] [address] [place] [address] Yogi Muñoz MD 200 [facility] [place] [address] Appointment (Carbo/Alimta) Allergies Active Allergy Reactions Criticality [...] Active Azithromycin 250 MG Oral Tablet (Zithromax Z-Ayaz)Indicati ons:Pneumonia due to infectious organism, unspecified laterality, unspecified part of lung Take two tablets by mouth on first day, then 1 tablet daily until gone 6 Tablet 02/13/20 24 Active predniSONE 10 MG Oral Tablet (Deltasone)Ind ications:Drug- induced pneumonitis Take 6 Tablets by mouth in the morning. Or as directed by Oncology office. 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 Muñoz, would like patient to be seen prior to upcoming treatment. I called and spoke with patient, she is agreeable to being seen on Saturday at 9AM. Scheduling- please schedule patient for follow up on 03/27 @ 9AM with Consuelo. Thank you. Shahid randall * Telephone Encounter - Mata Zazueta RN - 03/20/2024 3:49 PM EST Called patient to follow up with her. She states her breathing still hasn't improved. She denies this becoming worse since decreasing from 60mg to 40mg but denies any improvement. She is seeing Dr. Mann on Saturday to discuss further, we will await his note. Dr. Muñoz - tonia in case you want to follow up with Dr. Mann on Saturday/Saturday after patient is seen. * Telephone Encounter - Jad Velez OSA - 03/13/2024 8:27 AM EST Patient scheduled and aware * Telephone Encounter - Mata Zazueta RN - 03/13/2024 7:36 AM EST Pt [...] Description 03/26/2024 10:00 AM EST Laboratory Laboratory [address] [place] [phone] [address] [place] [address] 03/27/2024 9:00 AM EST Office Visit Hematology/Oncology [facility] [address] [phone] Consuelo Jarvis CRNP [address] [place] [address] 03/27/2024 10:00 AM EST Hem/Onc Treatment Hematology/Oncology Treatment, [place] 200 [facility] [place] [phone] Amparo, Chair 1 Hem Onc Scenery 200 [facility] [place] [address] 04/15/2024 9:30 AM EST PulmDiagnostic Pulmonary Function Lab, [facility] [address] [facility] [place] [address] [address], [address] [facility] [place] [address] 04/15/2024 10:00 AM EST PulmDiagnostic Pulmonary Function Lab, [facility] [address] [facility] [place] [address] [address], [address] [facility] [place] [address] 06/23/2024 9:30 AM EDT Office Visit Pulmonary Medicine, [facility] [address] [facility] [place] [address] Shiv Mann MD [address] [place] [address] 07/21/2024 8:30 AM EDT Office Visit Family Medicine [address] [place] [phone] Renetta Naidu [address] [place] [address] Health Maintenance Due Date Last Done Comments [...] this encounter Medical Devices Implanted Type Area Mold Checker Device Identifier Shelf Expiration Date Model / Serial / Lot Device Perm Cntrl [id number] - [id number] Implanted:Qty: 2 on 09/30/2014 by Julio Ramírez MD at OR [facility] N/A: Fallopian Tube [employer] 03/02/2016 [id number] / / [id number] Description:Bilateral tubal documented as of this encounter Care Teams Motion Pictures Cartoonist Relationship Specialty Start Date End Date Renetta Naidu DO [address] [place] [address] [place] [address] PCP - General Internal Medicine 11/12/23 documented as of this encounter
--- OUTSIDE RECORDS SUMMARY | 2024-04-10 00:52 | External Medical Summary | Summary of Care ---
Author Name Unknown Organization [facility] Address [address] [place] [address] Phone [phone] Care Team Providers Care Ammonium Hydroxide Operator Name Role Phone Naidu Renetta Mcdaniel Primary Care Provider Reason for Visit * Reason Onset Date Comments Appointment 03/13/2024 Carbo/Alimta Encounter Details Date Type Department Care Team (Late st Contact Info) Description 03/13/2024 Telephone Hematology/Oncology Román Christensen [place] [address] [place] [phone] Yogi Muñoz MD 200 [facility] [place] [address] Appointment (Carbo/Alimta) Allergies Active Allergy Reactions Criticality [...] Description 03/26/2024 10:00 AM EST Laboratory Laboratory [address] [place] [phone] [address] [place] [address] 03/27/2024 9:00 AM EST Office Visit Hematology/Oncology [facility] [address] [phone] Consuelo Jarvis CRNP [address] [employer] [place] [address] 03/27/2024 10:00 AM EST Hem/Onc Treatment Hematology/Oncology Treatment, [place] 200 [facility] [place] [phone] Amparo, Chair 1 Hem Onc Scenery 200 [facility] [place] [address] 04/15/2024 9:30 AM EST PulmDiagnostic Pulmonary Function Lab, [facility] 132 [facility] [place] [address] [address], [address] 132 [facility] [place] [address] 04/15/2024 10:00 AM EST PulmDiagnostic Pulmonary Function Lab, [facility] 132 [facility] [place] [address] [address], [address] 132 [facility] [place] [address] 06/23/2024 9:30 AM EDT Office Visit Pulmonary Medicine, [facility] 132 [facility] [place] [address] Shiv Mann MD [address] [place] [address] 07/21/2024 8:30 AM EDT Office Visit Family Medicine [address] [place] [phone] Renetta Naidu [address] [place] [address] Health Maintenance Due Date Last Done Comments [...] this encounter Medical Devices Implanted Type Area Forensic Pathologist Device Identifier Shelf Expiration Date Model / Serial / Lot Device Perm Cntrl [id number] - [id number] Implanted:Qty: 2 on 09/30/2014 by Julio Ramírez MD at OR [facility] N/A: Fallopian Tube [employer] 03/02/2016 [id number] / / [id number] Description:Bilateral tubal documented as of this encounter Care Teams Ammonium Hydroxide Operator Relationship Specialty Start Date End Date Renetta Naidu DO [address] [place] [address] [place] [address] PCP - General Internal Medicine 11/12/23 documented as of this encounter
--- OUTSIDE RECORDS SUMMARY | 2024-04-10 00:52 | External Medical Summary ---
Author Name Unknown Address Unknown Organization K01:[facility] [place] [address] [facility] [place] [address] Laboratory Report Ordering Provider Test Date Status JARED MAGAÑA 03/26/2024 09:53:48 Final Observation Date Value Abnormality Reference (Units ) Status SYNC LEUKOCYTES IN BLOOD BY AUTOMATED COUNT 03/26/2024 09:53:48 11.09 Above high normal 4.00-10.80 (K/uL) Final Segs 03/26/2024 09:53:48 76.1 Above high normal 40.0-75.0 (%) Final Lymphs % 03/26/2024 09:53:48 14.7 Below low normal 18.0-42.0 (%) Final Monos 03/26/2024 09:53:48 6.6 1.0-11.0 (%) Final Eosinophils 03/26/2024 09:53:48 1.2 0.0-6.0 (%) Final Basos 03/26/2024 09:53:48 0.3 0.0-2.0 (%) Final Immature Granulocyte, Percent 03/26/2024 09:53:48 1.1 0.0-2.0 (%) Final Absolute Segs 03/26/2024 09:53:48 8.45 Above high normal 1.80-7.70 (K/uL) Final Lymphs, absolute 03/26/2024 09:53:48 1.63 1.00-4.80 (K/ul) Final Monos, Abs 03/26/2024 09:53:48 0.73 0.00-1.10 (K/uL) Final Eos, Abs 03/26/2024 09:53:48 0.13 0.00-0.70 (K/uL) Final Basos, Abs 03/26/2024 09:53:48 0.03 0.00-0.20 (K/uL) Final Immature Granulocytes, Number 03/26/2024 09:53:48 0.12 0.00-0.20 (K/uL) Final Performing Location [facility] [place] - [facility] [address] [facility] [address]
--- OUTSIDE RECORDS SUMMARY | 2024-04-10 00:52 | External Medical Summary | Summary of Care ---
Author Name Unknown Organization [facility] Address [address] [facility] [address] Phone [phone] Care Team Providers Care Affirmative Action Specialist Name Role Phone Naidu Renetta Mcdaniel Primary Care Provider Reason for Visit * Reason Comments Follow Up Return pulm. Metasti c lung CA. A lot SOB. When she is walking only. Encounter Details Date Type Department Care Team (Late st Contact Info) Description 03/23/2024 9:30 AM EST Office Visit Pulmonary Medicine, [facility] 132 [facility] [place] [address] Shiv Mann MD [address] [facility] [place] [phone] Chronic respiratory failure with hypoxia (HCC)*; Nocturnal hypoxia; Tobacco use; SOB (shortness of breath) Allergies Active Allergy Reactions Criticality Noted Date Comments Levofloxacin Rash 02/17/2024 documented as of this encounter (statuses as of 03/23/2024) Medications lamoTRIgine 100 MG Oral Tablet (LaMICtal) [...] Wheezing. 18 g 12 03/23/19 25 Active Albuterol Sulfate HFA 108 (90 [...] as of this encounter (statuses as of 03/23/2024) Active Problems Problem Noted Date Diagnosed Date [...] as of this encounter (statuses as of 03/23/2024) Resolved Problems Problem Noted Date Diagnosed Date Resolved Date Mass of right lung 11/28/2023 Restrictive lung disease 06/15/2022 Depression 05/02/2012 06/15/2022 Generalized anxiety disorder 01/14/2012 06/15/2022 documented as of this encounter (statuses as of 03/23/2024) Immunizations Name Administration Dates Next Due Pneumococcal Polysaccharide PPV23 (Pneumovax) Seasonal Influenza Vac., MDV, IM, 0.5 mL (Fluzon e) 12/14/2011 TDAP (age 10 and older)(Boostrix) 06/12/2012 documented as of this encounter Social History Tobacco Use Types Packs/Day Years Used Date Smoking Tobacco: Every Day Cigarettes 1.5 31 Smokeless Tobacco: Never Tobacco Cessation:Ready to Q uit: Not Asked; Counseling Given: Not Answered Comments:1 1/2 ppd. Every day smoker. 10/28/23. 3 cpd smoker. 03/23/2024 Alcohol [...] Sign Reading Time Taken Comments Blood Pressure 128/72 03/23/2024 9:21 AM EST Pulse 128 03/23/2024 9:21 AM EST Temperature 36.2 C (97.2 F) 03/23/2024 9:21 AM ES T Respiratory Rate 16 03/23/2024 9:21 AM EST Oxygen Saturation 79% 03/23/2024 9:22 AM EST ra-amb Inhaled Oxygen Concentration - - Weight 64.9 kg (143 lb) 03/23/2024 9:21 AM EST Height 154.9 cm (5' 1") 03/23/2024 9:21 AM EST Body Mass Index 27.02 03/23/2024 9:21 AM EST documented in this encounter Progress Notes * Shiv Mann MD - 03/23/2024 9:37 AM EST 03/23/2024 Pulmonary Medicine, [address] [place] [id number] Sarah Justin Ponce 1975 female 48 year old Attending Physician Documentation: 48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, currently at less than half ppd Right lung Uyf-yjffk-xojn lung cancer, large cell neuroendocrine type, Status post chemotherapy Keytruda induced pneumonitis Currently on slow prednisone taper and Bactrim prophylaxis M-W-F Describes stable weight and appetite Shortness of breath on exertion with limited exercise tolerance Chronic cough, denies purulent expectoration CT Chest 03/03/2024, c/w 11/2023: Significant resolution of Rt hilar and Parfenchymal disease, New Subpleural Reticulation consistent with drug induced Poneumonitis Physical examination: Alert, awake, no distress Class 3 throat No JVD Adequate air entry with coarse breath sounds, no dullness, scattered coarse wheezing S1, S2, no murmur Soft, nontender abdomen No lower extremity edema Nonlateralizing Neuro examination PFT 05/2022: Restrictive ventilatory pattern, lung volume study was not done. CXR 04/2022: WNL CT Chest 03/03/2024, c/w 11/2023: Significant resolution of Rt hilar and Parfenchymal disease, New Subpleural Reticulation consistent with drug induced Poneumonitis PLAN: NSCLC, diagnosed 11/2023 S/p Chemo Rx Keytruda induced Pneumonitis, resolving at present on slow taper prednisone and Bactrim prophylaxis Agree with taper prednisone to off over 3 weeks OK to DC Bactrim once off Prednisone Home Oxygen setup initiated at 3 LPM with activity C/w trelegy and rescue Albuterol Repeat PFT in 4 weeks Repeat NPOX on RA F/u 3 months Follow Up: Return in about 3 months (around 06/20/2024) for Clinic Visit. | For: Clinic Visit | Check-out note: NSCLC S/p Chemo Rx Keytruda induced Pneumonitis, resolving Agree with taper prednisone to off over 3 weeks OK to DC Bactrim once off Prednisone Home Oxygen setup at 3 LPM with activity C/w trelegy and rescue Albuterol Repeat PFT in 4 weeks Repeat NPOX on RA F/u 3 months I spent a total of 40-54 minutes (exact time 45 mins) on the date of service in preparation, delivery, and documentation of the care provided to Sarah Ponce excluding any time spent in the performance of separately billed services or time spent by another provider/QHP. Shiv Mann MD Data review: Following reports, and data as outlined below was personally reviewed and interpreted by myself. HEMATOLOGY/ONCOLOGY DIAGNOSIS/ and MANAGEMENT PLAN ( Dr Muñoz): Non-small cell lung cancer, large cell neuroendocrine [...] as improvement of the pulmonary symptoms noted. 03/05/2024 --> starting Bactrim prophylaxis In 2 weeks, planning to start Alimta and carboplatin chemotherapy every 3 weekly. Not planning for Keytruda because of pneumonitis. Subjective CC: Chief Complaint Patient presents with Follow Up Return pulm. Metastic lung CA. A lot SOB. When she is walking only. HPI: Nursing Notes: Bernice MembrenoCJ 03/23/2427 Signed Chief Complaint Patient presents with Follow Up Return pulm. A lot SOB. When she is walking only. Interm History/Respiratory Symptoms Cough: yes little. Clear phlegm. Hemoptysis: no Sinus Symptoms: yes-congestion/drainage Hospitalizations: 02/06-.-acute hypotic resp failure . Pneumonia metastic lung ca. Chronic anemia ED Trips: 02/06 Triggers: none Nocturnal: sleeps with head elevated CPAP/BiPAP/O2: no DME Supplier: no Flu Vaccine: 2022 Pneumovax: 2012 Prevnar: none COVID 19: none. MMRC Dyspnea Scale = 4 (I am too breathless to leave the house or I am breathless when dressing) Objective Filed Vitals: 03/23/2492003/23/24921 BP: 128/72 Pulse: 128 Resp: 16 Temp: 36.2 C (97.2 F) TempSrc: Tympanic SpO2: 79% 79% Weight: 64.9 kg (143 lb) Height: 1.549 m (5' 1") Exam: [...] is normal. Tests reviewed with the patient: CT CHEST W CONTRAST Addendum Date: 03/04/2024 ADDENDUM: Outside CT was imported for comparison. As compared to imported CT dated 02/07/2024, the right upper lobe mass is slightly decreased in size, measuring 2.5 x 2.1 cm, previously 2.7 x 2.1 cmon 02/07/2024. Additional scattered pulmonary nodules are also decreased in size. For reference, right middle lobe nodule measures 4 mm (series 2, image 54), previously 5 mm on 02/07/2024. In addition, mediastinal, hilar and gastrohepatic lymph nodes also further decreased in size from 02/07/2024. For reference, confluent right hilar/subcarinal jaleel mass measures 1.8 x 4.6 cm, previously 2.4 x 5.0 cm on 02/07/2024. Patchy bilateral ground-glass opacities most predominant within the lower lobe are slightly improved compared to 02/07/2024. Result Date: 03/04/2024 IMPRESSION 1. New bilateral patchy ground-glass opacities most predominant within the lower lobes. Findings may be infectious or inflammatory in etiology. 2. Interval decrease in size of spiculated right upper lobe mass and numerous bilateral pulmonary nodules as described. 3. Interval decrease in size of mediastinal, hilar and gastrohepatic lymph nodes. 4. Hepatic metastases. This exam was submitted to the radiology front office secretary worklist and the ordering provider will be notified that the final report is available in EPIC. XR CHEST 2 VIEWS Result Date: 02/27/2024 IMPRESSION New patchy airspace opacities in both lungs, favoring an infectious etiology. MRI BRAIN W WO CONTRAST Result Date: 12/23/2023 IMPRESSION No acute intracranial abnormality. No intracranial metastatic disease. PET CT SKULL BASE TO MID-THIGH FDG Result Date: 12/09/2023 IMPRESSION 1. FDG avid right upper lobe nodule with numerous additional bilateral FDG avid pulmonary nodules and right basilar pleural thickening, consistent with the biopsy proven malignancy. 2. FDGavid right hilar/mediastinal, lower paraesophageal, and gastrohepatic lymphadenopathy as well as liver metastases. I have personally reviewed this examination and agree with the resident/fellow physician's interpretation. XR CHEST 1 VIEW Result Date: 11/28/2023 IMPRESSION: 1. There are all several pulmonary nodules bilaterally, the largest in the right upper lobe. 2. There is prominence within the right paramediastinal region, likely related to lymphadenopathy. THIS DOCUMENT HAS BEEN ELECTRONICALLY SIGNED BY HUMA COWART DO CT CHEST WO CONTRAST Result Date: 11/23/2023 IMPRESSION 1. Spiculated right upper lobe mass with extensive mediastinal and right hilar lymphadenopathy, numerous large bilateral pulmonary nodules, and multiple hepatic lesions. Findings are most consistent with primary lung malignancy with metastatic disease. 2. Enlarged gastrohepatic lymph node is also noted, also concerning for metastatic disease. In compliance with act 112, the JOEY (radiology front office secretary) was contacted to invoke system generated communication of the patient's results. XR SHOULDER, 2 OR MORE VIEWS Result Date: 11/12/2023 IMPRESSION No acute fracture or dislocation of the right shoulder. Available Radiologic data was reviewed by me in PACS. The images were shown to the patient and findings were discussed with the patient. HOME MEDICATIONS: Albuterol Sulfate HFA 108 (90 Base) MCG/ACT Inhalation Aerosol Solution Sulfamethoxazole-Trimethoprim 800-160 MG Oral Tablet (Bactrim DS) predniSONE 10 MG Oral Tablet (Deltasone) Azithromycin 250 MG Oral Tablet (Zithromax Z-Ayaz) Folic Acid 1 MG Oral Tablet Pantoprazole Sodium 40 MG Oral Tablet Delayed Release (Protonix) LORazepam 0.5 MG Oral Tablet (Ativan) dexAMETHasone 4 MG Oral Tablet (Decadron) Ondansetron HCl 8 MG Oral Tablet (Zofran) Prochlorperazine Maleate 10 MG Oral Tablet (Compazine) Trelegy Ellipta 200-62.5-25 MCG/ACT Aerosol Powder Breath Activated (Adgcetpjfpb-Tawtnmznygzb-Cjbzgsohgp) Lybalvi 20-10 MG Oral Tablet lamoTRIgine 100 [...] performed by Shiv Mann MD at OR [facility] HYSTEROSCOPY W/FALLOPIAN IMPLANTS N/A 09/30/2014 HYSTEROSCOPY SURGICAL BILATERAL FALLOPIAN TUBE performed by Julio Ramírez MD at OR [facility] INFORMATION cyst removal on chest. REMOVE GALLBLADDER Social History Socioeconomic History Marital status: Single Number of children: 1 Occupational History Occupation: unemployed Occupation: Disability for learning disability Tobacco Use Smoking status: Every Day Current packs/day: 1.50 Average packs/day: 1.5 packs/day for 31.0 years (46.5 ttl pk-yrs) Types: Cigarettes Smokeless tobacco: Never Tobacco comments: 1 02/19 ppd. Every day smoker. 10/28/23. 3 cpd smoker. 03/23/2024 Vaping Use Vaping status: Never Used Substance and Sexual Activity Alcohol use: Not Currently Comment: occasionally Drug use: No Sexual activity: Yes Partners: Male control/protection: Injection Comment: depo Family History Problem Relation Name Age of Onset Lung Disorder Mother Other (Hyperlipidemia [Other]) Mother Hypertension Father No Past Hx Sister No Past Hx Sister No Past Hx Sister No Past Hx Sister No Past Hx Sister Breast Cancer Grandmother (Maternal) Review of patient's allergies indicates: Allergen Reactions Levaquin [Levofloxacin] Rash documented in this encounter Nursing Notes * Bernice Membreno LPN - 03/23/2024 9:23 AM EST Chief Complaint Patient presents with Follow Up Return pulm. A lot SOB. When she is walking only. Interm History/Respiratory Symptoms Cough: yes little. Clear phlegm. Hemoptysis: no Sinus Symptoms: yes-congestion/drainage Hospitalizations: 02/06-.-acute hypotic resp failure . Pneumonia metastic lung ca. Chronic anemia ED Trips: 02/06 Triggers: none Nocturnal: sleeps with head elevated CPAP/BiPAP/O2: no DME Supplier: no Flu Vaccine: 2022 Pneumovax: 2012 Prevnar: none COVID 19: none. MMRC Dyspnea Scale = 4 (I am too breathless to leave the house or I am breathless when dressing) documented in this encounter Plan of Treatment Upcoming Encounters Date Type Department Care Team (Late st Contact Info) Description 03/26/2024 10:00 AM EST Laboratory Laboratory [address] [place] [phone] [place], Lab [address] [place] [address] 03/27/2024 10:00 AM EST Hem/Onc Treatment Hematology/Oncology Treatment, [place] [address] [facility] [phone] Amparo, Chair 1 Hem Onc Scenery [address] [facility] [address] 04/15/2024 9:30 AM EST PulmDiagnostic Pulmonary Function Lab, [facility] 132 [facility] [place] [address] [address], [address] 132 [facility] [place] [address] 04/15/2024 10:00 AM EST PulmDiagnostic Pulmonary Function Lab, [facility] 132 [facility] [place] [address] [place], [address] [facility] [place] [address] 06/23/2024 9:30 AM EDT Office Visit Pulmonary Medicine, [facility] 132 [facility] [place] [address] Shiv Mann MD [address] [place] [address] 07/21/2024 8:30 AM EDT Office Visit Family Medicine [address] [place] [phone] Renetta Naidu, [address] [place] [address] Scheduled Orders Name Type Priority Associated Diagnoses Orde r Schedule PULMONARY STRESS TESTING Procedures Routine Chronic respiratory failure with hypoxia (HCC) Expected: 03/24/2024, Expires: 04/20/2025 SPIROMETRY B/A BRONCHODILATOR Procedures Routine Chronic respiratory failure with hypoxia (HCC) Expected: 03/30/2024, Expires: 04/20/2025 LUNG VOLUMES (PLETHYSMOGRAPHY) Procedures Routine Chronic respiratory failure with hypoxia (HCC) Expected: 03/30/2024, Expires: 04/20/2025 DIFFUSION CAPACITY (DLCO) Procedures Routine Chronic respiratory failure with hypoxia (HCC) Expected: 03/30/2024, Expires: 04/20/2025 NOCTURNAL HOME OXIMETRY (OP) Procedures Routine Chronic respiratory failure with hypoxia (HCC) Nocturnal hypoxia Ordered: 03/23/2024 Health Maintenance Due Date Last Done Comments [...] this encounter Medical Devices Implanted Type Area Veterans' Counselor Device Identifier Shelf Expiration Date Model / Serial / Lot Device Perm Cntrl [id number] - [id number] Implanted:Qty: 2 on 09/30/2014 by Julio Ramírez MD at OR [facility] N/A: Fallopian Tube [employer] 03/02/2016 [id number] / / [id number] Description:Bilateral tubal documented as of this encounter Visit Diagnoses Diagnosis Chronic respiratory failure with hypoxia (HCC)- Primary Chronic respiratory failure Nocturnal hypoxia Hypoxemia Tobacco use Tobacco use disorder SOB (shortness of breath) Shortness of breath documented in this encounter Care Teams Affirmative Action Specialist Relationship Specialty Start Date End Date Renetta Naidu DO [address] [place] [address] [place] [address] PCP - General Internal Medicine 11/12/23 documented as of this encounter
--- OUTSIDE RECORDS SUMMARY | 2024-04-10 00:52 | External Medical Summary ---
Author Name Unknown Address Unknown Organization K01:LABORATORY [facility] [place] - [address] [facility] [place] [address] Laboratory Report Ordering Provider Test Date Status JARED MAGAÑA 03/26/2024 09:53:48 Final Observation Date Value Abnormality Reference (Units ) Status BUN 03/26/2024 09:53:48 14 6-20 (mg/dL) Final Creatinine 03/26/2024 09:53:48 1.2 Above high normal 0.5-1.0 (mg/dL) Final Glomerular filtration rate/1.73 sq M.predicted [Volume Rate/Area] in Serum, Plasma or Blood by Creatinine-based formula (CKD-EPI) 03/26/2024 09:53:48 59 Below low normal >=60 (mL/min) Final eGFR is calculated based on the CKD-EPI 2020 equation. Sodium 03/26/2024 09:53:48 140 135-146 (m mol/L) Final Potassium 03/26/2024 09:53:48 3.9 3.5-5.1 (m mol/L) Final Cl 03/26/2024 09:53:48 100 98-107 (mm ol/L) Final CO2 03/26/2024 09:53:48 26 22-32 (mmo l/L) Final Anion gap 03/26/2024 09:53:48 14 7-15 (mmol /L) Final Glucose 03/26/2024 09:53:48 112 70-120 (mg /dL) Final Albumin 03/26/2024 09:53:48 4.2 3.8-5.0 (g /dL) Final AST (Aspartate aminotransferase) 03/26/2024 09:53:48 27 10-35 (U/L) Final Results may be falsely eleva sirisha due to hemolysis. Alk Phos 03/26/2024 09:53:48 89 35-130 (U/ L) Final Bilirubin, Total 03/26/2024 09:53:48 0.4 <=1 .2 (mg/dL) Final Calcium 03/26/2024 09:53:48 9.5 8.4-10.2 ( mg/dL) Final Protein 03/26/2024 09:53:48 7.1 6.0-8.3 (g /dL) Final ALT (Alanine aminotransferase) 03/26/2024 09:53:48 30 10-35 (U/L) Final Performing Location LABORATORY [facility] [place] - [address] [facility] [address]
--- OUTSIDE RECORDS SUMMARY | 2024-04-10 00:52 | External Medical Summary | Summary of Care ---
Author Name Unknown Organization [facility] Address [address] [facility] [address] Phone [phone] Care Team Providers Care Crutch Maker Name Role Phone Renetta Naidu DO Primary Care Provider Encounter Details Date Type Department Care Team (Late st Contact Info) Description 12/20/2023 Telephone Pre Surgery Center, [facility] [address] [place] [address] Clare Rodriguez DO [address] [place] [address] Allergies Active Allergy Reactions Criticality Noted Date Comments Levofloxacin Rash 02/17/2024 documented as of this encounter (statuses as of 03/21/2024) Medications lamoTRIgine 100 MG Oral Tablet (LaMICtal) [...] as of this encounter (statuses as of 03/21/2024) Active Problems Problem Noted Date Diagnosed Date Malignant neoplasm of upper lobe of right lung 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 Encounter for antineoplastic chemotherapy 2023 Bipolar 1 disorder 06/15/2022 Overview (06/15/2022): [facility] with target LDL less than 100 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 Overview (06/15/2022): PFTs reflect more of a restrictive pattern Tobacco use disorder 06/15/2022 documented as of this encounter (statuses as of 03/21/2024) Resolved Problems Problem Noted Date Diagnosed Date Resolved Date Mass of right lung 11/28/2023 Restrictive lung disease 06/15/2022 Depression 05/02/2012 06/15/2022 Generalized anxiety disorder 01/14/2012 06/15/2022 documented as of this encounter (statuses as of 03/21/2024) Immunizations Name Administration Dates Next Due Pneumococcal [...] encounter Miscellaneous Notes * Telephone Encounter - Mary Bellamy RN - 12/20/2023 8:45 AM EDT This patient is scheduled for EGD on 12-31-23 and wishes to cancel and not reschedule. Patient madeaware she will be taken off of the schedule for 12-31-23 documented in this encounter Plan of Treatment Upcoming Encounters Date Type Department Care Team (Late st Contact Info) Description 03/23/2024 9:30 AM EST Office Visit Pulmonary Medicine, [facility] [address] [place] [address] Shiv Mann MD [address] [facility] [place] [id number] 03/26/2024 10:00 AM EST Laboratory Laboratory [address] [place] [phone] [place] [address] 03/27/2024 10:00 AM EST Hem/Onc Treatment [facility] [phone] Amparo, Chair 1 Hem Onc [address] [address] 07/21/2024 8:30 AM EDT Office Visit Family Medicine [address] [place] [phone] [address] [place] [address] Health Maintenance Due Date Last Done Comments [...] encounter Medical Devices Implanted Type Area Supervisor Metal Furniture Fabrication Device Identifier Shelf Expiration Date Model / Serial / Lot Device Perm Cntrl [id number] - [id number] Implanted:Qty: 2 on 09/30/2014 by Julio Ramírez MD at OR [facility] N/A: Fallopian Tube [employer] 03/02/2016 [id number] / / [id number] Description:Bilateral tubal documented as of this encounter Care Teams Crutch Maker Relationship Specialty Start Date End Date Renetta Naidu DO [address] [place] [address] [place] [address] PCP - General Internal Medicine 11/12/23 documented as of this encounter
--- OUTSIDE RECORDS SUMMARY | 2024-04-10 00:53 | External Medical Summary ---
Author Name Unknown Address Unknown Organization K01:LABORATORY [facility] [place] - [address] [place] [address] Laboratory Report Ordering Provider Test Date Status JARED MAGAÑA 03/04/2024 09:48:15 Final Observation Date Value Abnormality Reference (Units ) Status TSH 03/04/2024 09:48:15 3.16 0.27-4.20 (uIU/mL) Final Performing Location LABORATORY [facility] - [address] [place] [address]
--- OUTSIDE RECORDS SUMMARY | 2024-04-10 00:53 | External Medical Summary ---
Author Name Unknown Address Unknown Organization K01:[place] [facility] [place] [address] [facility] [address] [place] [address] Laboratory Report Ordering Provider Test Date Status JARED MAGAÑA 03/04/2024 09:48:15 Final Observation Date Value Abnormality Reference (Units ) Status WBC, Total 03/04/2024 09:48:15 11.60 Above high normal 4.00-10.80 (K/uL) Final RBC 03/04/2024 09:48:15 3.32 3.85-5.15 (M/uL) Final Hemoglobin 03/04/2024 09:48:15 11.5 Below low normal 12.0-15.3 (g/dL) Final HCT 03/04/2024 09:48:15 38.7 36.0-45.2 (%) Final MCV 03/04/2024 09:48:15 116.6 81.5-97.5 (fL) Final MCH 03/04/2024 09:48:15 34.6 27.0-34.0 (pg) Final MCHC 03/04/2024 09:48:15 29.7 32.0-36.0 (g/dL) Final RDW 03/04/2024 09:48:15 24.9 11.5-15.5 (%) Final Platelets 03/04/2024 09:48:15 179 140-400 (K/uL) Final MPV 03/04/2024 09:48:15 11.1 6.6-11.1 (fL) Final Nucleated erythrocytes/100 leukocytes [Ratio] in Blood by Automated count 03/04/2024 09:48:15 0 <=0 (/100 WBCs) Final Performing Location [place] [facility] [place] [address] [place] [address]
--- OUTSIDE RECORDS SUMMARY | 2024-04-10 00:53 | External Medical Summary ---
Author Name Unknown Address Unknown Organization K01:[place] [facility] [place] [address] [facility] [place] [address] Laboratory Report Ordering Provider Test Date Status JARED MAGAÑA 03/04/2024 09:48:15 Final Observation Date Value Abnormality Reference (Units ) Status BUN 03/04/2024 09:48:15 9 6-20 (mg/dL) Final Creatinine 03/04/2024 09:48:15 1.0 0.5-1.0 (mg/dL) Final Glomerular filtration rate/1.73 sq M.predicted [Volume Rate/Area] in Serum, Plasma or Blood by Creatinine-based formula (CKD-EPI) 03/04/2024 09:48:15 73 >=60 (mL/min) Final eGFR is calculated based on the CKD-EPI 2020 equation. Sodium 03/04/2024 09:48:15 145 135-146 (m mol/L) Final Potassium 03/04/2024 09:48:15 3.8 3.5-5.1 (m mol/L) Final Cl 03/04/2024 09:48:15 104 98-107 (mm ol/L) Final CO2 03/04/2024 09:48:15 26 22-32 (mmo l/L) Final Anion gap 03/04/2024 09:48:15 15 7-15 (mmol /L) Final Glucose 03/04/2024 09:48:15 71 70-120 (mg /dL) Final Albumin 03/04/2024 09:48:15 3.6 Below low normal 3.8 -5.0 (g/dL) Final AST (Aspartate aminotransferase) 03/04/2024 09:48:15 35 10-35 (U/L) Fin al Alk Phos 03/04/2024 09:48:15 102 35-130 (U/ L) Final Bilirubin, Total 03/04/2024 09:48:15 0.4 <=1 .2 (mg/dL) Final Calcium 03/04/2024 09:48:15 9.3 8.4-10.2 ( mg/dL) Final Protein 03/04/2024 09:48:15 6.6 6.0-8.3 (g /dL) Final ALT (Alanine aminotransferase) 03/04/2024 09:48:15 51 Above high normal 10-35 (U/L) Final Performing Location [place] [facility] [place] [address] [facility] [address]
--- OUTSIDE RECORDS SUMMARY | 2024-04-10 00:53 | External Medical Summary | Summary of Care ---
Author Name Unknown Organization [facility] Address [address] [place] [address] Phone [phone] Care Team Providers Care Stack Attendant Name Role Phone Renetta Naidu DO Primary Care Provider Encounter Details Date Type Department Care Team (Late st Contact Info) Description 03/02/2024 Orders Only Hematology/Oncology Treatment, [place] [address] [place] [address] Yogi Muñoz MD [address] [place] [address] Malignant neoplasm of upper lobe of right lung (HCC)*; Thrombocytopenia, congenital and hereditary (HCC); Erythrocytosis; Metastasis to mediastinal lymph node (HCC); Encounter for antineoplastic chemotherapy; Encounter for therapeutic drug monitoring; Bipolar disorder, unspecified (HCC) Allergies Active Allergy Reactions Criticality Noted Date Comments Levofloxacin Rash 02/17/2024 documented as of this encounter (statuses as of 03/13/2024) Medications lamoTRIgine 100 MG Oral Tablet (LaMICtal) [...] as of this encounter (statuses as of 03/13/2024) Active Problems Problem Noted Date Diagnosed Date Malignant neoplasm of upper lobe of right lung 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 Encounter for antineoplastic chemotherapy 2023 Bipolar 1 disorder 06/15/2022 Overview (06/15/2022): [facility] with target LDL less than 100 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 Overview (06/15/2022): PFTs reflect more of a restrictive pattern Tobacco use disorder 06/15/2022 documented as of this encounter (statuses as of 03/13/2024) Resolved Problems Problem Noted Date Diagnosed Date Resolved Date Mass of right lung 11/28/2023 4 Restrictive lung disease 06/15/2022 Depression 05/02/2012 06/15/2022 Generalized anxiety disorder 01/14/2012 06/15/2022 documented as of this encounter (statuses as of 03/13/2024) Immunizations Name Administration Dates Next Due Pneumococcal [...] encounter Miscellaneous Notes * Addendum Note - Mata Lux RN - 03/13/2024 7:47 AM ESTAddended by: MATA LUX on: 03/13/2024 07:47 AM Modules accepted: Orders documented in this encounter Plan of Treatment Upcoming Encounters Date Type Department Care Team (Late st Contact Info) Description 07/21/2024 8:30 AM EDT Office Visit Family Medicine [address] [place] [phone] [place] [address] Scheduled Orders Name Type Priority Associated Diagnoses Orde r Schedule CBC WITH WBC DIFFERENTIAL Lab STAT Malignant neoplasm of upper lobe of right lung (HCC) Metastasis to mediastinal lymph node (HCC) Bipolar disorder, unspecified (HCC) Every 3 Weeks for 17 Occurrences starting 03/03/2024 until 03/03/2025, 1 completed COMPREHENSIVE METABOLIC PANEL Lab STAT Malignant neoplasm of upper lobe of right lung (HCC) Metastasis to mediastinal lymph node (HCC) Bipolar disorder, unspecified (HCC) Every 3 Weeks for 17 Occurrences starting 03/03/2024 until 03/03/2025, 1 completed Health Maintenance Due Date Last [...] this encounter Medical Devices Implanted Type Area Potato Chip Processing Supervisor Device Identifier Shelf Expiration Date Model / Serial / Lot Device Perm Cntrl [id number] - [id number] Implanted:Qty: 2 on 09/30/2014 by Julio Ramírez MD at OR [facility] N/A: Fallopian Tube [employer] 03/02/2016 [id number] / / [id number] Description:Bilateral tubal documented as of this encounter Results * (ABNORMAL) COMPREHENSIVE METABOLIC PANEL (03/04/2024 9:48 AM EST) BUN 9 6 - 20 mg/dL 03/05/2024 5:25 AM EST [facility] CREATININE 1.0 0.5 - 1.0 mg/dL 03/05/2024 5:25 AM EST [facility] EGFR 73 >=60 mL/min 03/05/2024 5:25 AM EST [facility] Comment:eGFR is calculated b ased on the CKD-EPI 2020 equation. SODIUM 145 135 - 146 mmol/L 03/05/2024 5:25 AM EST [facility] POTASSIUM 3.8 3.5 - 5.1 mmol/L 03/05/2024 5:25 AM EST [facility] CHLORIDE 104 98 - 107 mmol/L 03/05/2024 5:25 AM EST [facility] CO2 26 22 - 32 mmol/L 03/05/2024 5:25 AM EST [facility] ANION GAP 15 7 - 15 mmol/L 03/05/2024 5:25 AM EST [facility] GLUCOSE 71 70 - 120 mg/dL 03/05/2024 5:25 AM EST [facility] Albumin 3.6(L) 3.8 - 5.0 g/dL 03/05/2024 5:25 AM EST [facility] AST 35 10 - 35 U/L 03/05/2024 5:25 AM EST [facility] Alkaline Phosphatase 102 35 - 130 U/L 03/05/2024 5:25 AM EST [facility] Bilirubin, Total 0.4 <=1.2 mg/dL 03/05/2024 5:25 AM EST [facility] CALCIUM 9.3 8.4 - 10.2 mg/dL 03/05/2024 5:25 AM EST [facility] Protein 6.6 6.0 - 8.3 g/dL 03/05/2024 5:25 AM EST [facility] ALT 51(H) 10 - 35 U/L 03/05/2024 5:25 AM EST [facility] Blood Venous blood specimen / Unknown Venipuncture / Unknown 03/04/2024 9:48 AM EST 03/04/2024 9:48 AM EST us Yogi Muñoz MD LAB BLOOD ORDERABLES Final Res ult LABORATORY [address] [place] [address] documented in this encounter Visit Diagnoses Diagnosis Malignant neoplasm of upper lobe of right lung (HCC)- Primary Malignant neoplasm of upper lobe, bronchus or lung Thrombocytopenia, congenital and hereditary (HCC) Congenital and hereditary thrombocytopenic purpura Erythrocytosis Polycythemia, 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
--- OUTSIDE RECORDS SUMMARY | 2024-04-10 00:53 | External Medical Summary | Summary of Care ---
Author Name Unknown Organization [facility] Address [address] [place] [address] Phone [phone] Care Team Providers Care Insole Beveler Name Role Phone Renetta Naidu DO Primary [...] Metastasis to mediastinal lymph node (HCC) Procedures [place] CARBOPLATIN INJECTION [place] INJ. PEMETREXED NOS 10MG [place] FOSAPREPITANT INJECTION [place] INJ PEMBROLIZUMAB Yogi Muñoz MD [address] [place] [address] [place] [address] Phone: tel: fax: Hematology/Oncology Treatment, [address] [address] Phone: tel: fax: Referral ID Status Reason Start Date Expiration Date V isits Requested Visits Authorized [id number] Authorized 12/06/2023 02/17/[phone] Encounter Details Date Type Department Care Team (Latest Contact Info) Description 01/24/2024 9:30 AM EST Hem/Onc Treatment Hematology/Oncolog y Treatment, [address] [address] Amparo, Chair 8 Hem Onc Scenery 200 [facility], [place] [address] Encounter for antineoplastic chemotherapy*; Malignant neoplasm of upper lobe of right lung (HCC); Metastasis to mediastinal lymph node (HCC) Medications lamoTRIgine 100 MG Oral Tablet (LaMICtal) [...] tablet at MRI if needed 2 Tablet 10/30/20 24 Active Albuterol Sulfate HFA 108 (90 Base) MCG/ACT Inhalation Aerosol SolutionIndica tions:Tobacco use,SOB (shortness of breath) Inhale 2 Puffs by mouth every 4 hours as needed for Wheezing. 18 g 1 10/30/19 24 2023 Discontinued Pantoprazole Sodium 40 MG Oral Tablet Delayed Release (Protonix)Racquel cations:Dyspha eliud, unspecified type Take 1 Tablet by mouth in the morning. 30 minutes before the first meal of the day. Do not crush, split or chew the tablet. 30 Tablet 5 11/12/19 24 2023 Discontinued(R efill) predniSONE 20 MG Oral Tablet (Deltasone)Ind ications:Acute pain of right shoulder 2 tablets daily for 5 days then 1 tablet daily 15 Tablet 11/12/19 24 2023 Discontinued Rosuvastatin Calcium 10 MG Oral Tablet (Crestor)Indic ations:Dyslipi demia, goal LDL below 160 TAKE 1 TABLET BY MOUTH EVERY DAY IN THE MORNING 90 Tablet 11/14/19 24 2023 Discontinued Folic Acid 1 MG Oral TabletIndicati ons:Malignant neoplasm of upper lobe of right lung (HCC),Metastas is to mediastinal lymph node (HCC) Take 1 Tablet by mouth in the morning. 30 Tablet 5 12/06/19 24 2023 Discontinued(R efill) Hospital, Clinic, or Other Facility Administered Medication [...] as of this encounter (statuses as of 02/29/2024) Active Problems Problem Noted Date Diagnosed Date [...] as of this encounter (statuses as of 02/29/2024) Resolved Problems Problem Noted Date Diagnosed Date Resolved Date Mass of right lung 11/28/2023 4 Restrictive lung disease 06/15/2022 Depression 05/02/2012 06/15/2022 Generalized anxiety disorder 01/14/2012 06/15/2022 documented as of this encounter (statuses as of 02/29/2024) Immunizations Name Administration Dates Next Due Pneumococcal [...] this encounter Nursing Notes * Marianna Parker, AFUA - 01/24/2024 12:43 PM EST Infusions complete. [...] Care Team (Late st Contact Info) Description 03/03/2024 4:00 PM EST Imaging Radiology [address], [place] 132 [facility] [place] [address] 03/04/2024 10:00 AM EST Laboratory Laboratory [address] [place] [phone] [place] [address] 03/05/2024 8:30 AM EST Office Visit Hematology/Oncology [facility] 200 [place] [phone] Yogi Muñoz MD [address] [facility] [place] [address] 03/05/2024 9:00 AM EST Hem/Onc Treatment Hematology/Oncology Treatment, [place] 200 [facility] [place] [phone] Amparo, Chair 3 Hem Onc [address] [place] [address] 07/21/2024 8:30 AM EDT Office Visit Family Medicine [address] [place] [phone] Ren[address] [place] [address] Health Maintenance Due Date Last Done Comments [...] 06/25/2022 Colorectal Cancer Screening 07/05/2025 Diabetes Screening 02/20/2027 02/21/2024, 1 04/15/2023, 01/23/2024, Additional history exists Lipid Panel 11/04/2028 11/05/2023, 03/22, 08/29/2022, Additional history exists Alpha-1 Antitrypsin Completed 11/05/2023 HPV (Gardasil) Vaccine Aged Out No lo nger eligible based on patient's age to complete this topic MENINGOCOCCAL (MENACTRA/MENVEO) Aged Out No longer eligible based on patient's age to complete this topic documented as of this encounter Medical Devices Implanted Type Area Bridge Maintainer Device Identifier Shelf Expiration Date Model / Serial / Lot Device Perm Cntrl [id number] - [id number] Implanted:Qty: 2 on 09/30/2014 by Julio Ramírez MD at OR [facility] N/A: Fallopian Tube [employer] 03/02/2016 [id number] / / [id number] Description:Bilateral tubal documented as of this encounter [...] 9:44 AM EST 150 mg 538.4 mL/hr NSS infusion Intravenous, at 50 mL/hr, PRN, Starting on Sat01/24/24 at 1030, Until Sat01/24/24 at 1651, Maintenance lineIndications:Encoun ter for antineoplastic chemotherapy,Malignant neoplasm of upper lobe of right lung (HCC),Metastasis to mediastinal lymph node (HCC) Start Infusion 01/24/2024 9:42 AM EST 50 mL/hr Pembrolizumab (Keytruda) 200 [...] Upper documented in this encounter Care Teams Insole Beveler Relationship Specialty Start Date End Date Renetta Naidu DO [address] [place] [address] [place] [address] PCP - General Internal Medicine 11/12/23 documented as of this encounter
--- OUTSIDE RECORDS SUMMARY | 2024-04-10 00:53 | External Medical Summary | Summary of Care ---
Author Name Unknown Organization [facility] Address [address] [place] [address] Phone [phone] Care Team Providers Care Population Health Manager Name Role Phone Naidu Renetta Mcdaniel Primary Care Provider [phone] Encounter Details Date Type Department Care Team (Latest Contact Info) Description 02/07/2024 2:05 PM EST - 02/07/2024 11:59 PM EST Hospital Encounter Radiology Film File [address] [place] [address] Discharge Disposition: Home - Self Care Allergies Active Allergy Reactions Criticality Noted Date Comments Levofloxacin Rash 02/17/2024 documented as of this encounter (statuses as of 02/29/2024) Medications lamoTRIgine 100 MG Oral Tablet (LaMICtal) [...] the morning. 90 Tablet 3 4 Active Hospital, Clinic, or Other Facility [...] Description 03/03/2024 4:00 PM EST Imaging Radiology [address], [place] 132 [facility] [place] [address] 03/04/2024 10:00 AM EST Laboratory Laboratory [address] [place] [phone] [place] [address] 03/05/2024 8:30 AM EST Office Visit Hematology/Oncology [facility] [address] [place] [phone] Yogi Muñoz MD 200 [facility] [place] [address] 03/05/2024 9:00 AM EST Hem/Onc Treatment Hematology/Oncology Treatment, [place] 200 [facility] [place] [phone] Amparo, Chair 3 Hem On[address] [place] [address] 07/21/2024 8:30 AM EDT Office Visit Family Medicine [address] [place] [phone] [address] [place] [address] Health Maintenance Due Date Last Done Comments [...] this encounter Medical Devices Implanted Type Area Nuclear Plant Equipment Operator Device Identifier Shelf Expiration Date Model / Serial / Lot Device Perm Cntrl [id number] - [id number] Implanted:Qty: 2 on 09/30/2014 by Julio Ramírez MD at OR [facility] N/A: Fallopian Tube [employer] 03/02/2016 [id number] / / [id number] Description:Bilateral tubal documented as of this encounter Procedures Procedure Name Priority Date/Time Associated Diagnosis Comments RADIOLOGY EXAM - CT (IMAGES ONLY, NO REPORT) Routine 02/07/2024 2:05 PM EST documented in this encounter Results * RADIOLOGY EXAM - CT (IMAGES ONLY, NO REPORT) (02/07/2024 2:05 PM EST) 02/07/2024 2:04 PM EST Narrative Scheduling, Silent - 02/28/2024 2:09 PM EST This is an imaging study not interpreted or resulted by a [facility] or [facility] contracted radiologist. us Yogi Muñoz MD RAD CT Final Result documented in this encounter Care Teams Population Health Manager Relationship Specialty Start Date End Date Renetta Naidu DO [address] [place] [address] [place] [id number] PCP - General Internal Medicine 11/12/23 documented as of this encounter
--- OUTSIDE RECORDS SUMMARY | 2024-04-10 00:53 | External Medical Summary | Summary of Care ---
Author Name Unknown Organization [facility] Address [address] [place] [place] [place] [address] Phone [phone] Care Team Providers Care Automatic Shirring Machine Operator Name Role Phone Renetta Naidu DO Primary Care Provider [phone] Encounter Details Date Type Department Care Team (Late st Contact Info) Description 03/02/2024 Orders Only Hematology/Oncology Treatment, [place] [address] [place] [address] Yogi Muñoz MD [address] [place] [address] Malignant neoplasm of upper lobe of right lung (HCC)*; Thrombocytopenia, congenital and hereditary (HCC); Erythrocytosis; Metastasis to mediastinal lymph node (HCC); Encounter for antineoplastic chemotherapy; Encounter for therapeutic drug monitoring; Bipolar disorder, unspecified (HCC) Allergies Active Allergy Reactions Criticality Noted Date Comments Levofloxacin Rash 02/17/2024 documented as of this encounter (statuses as of 03/03/2024) Medications lamoTRIgine 100 MG Oral Tablet (LaMICtal) [...] as of this encounter (statuses as of 03/03/2024) Active Problems Problem Noted Date Diagnosed Date Malignant neoplasm of upper lobe of right lung 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 Encounter for antineoplastic chemotherapy 2023 Bipolar 1 disorder 06/15/2022 Overview (06/15/2022): [facility] Hyperlipidemia with target LDL less than 100 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 Overview (06/15/2022): PFTs reflect more of a restrictive pattern Tobacco use disorder 06/15/2022 documented as of this encounter (statuses as of 03/03/2024) Resolved Problems Problem Noted Date Diagnosed Date Resolved Date Mass of right lung 11/28/2023 4 Restrictive lung disease 06/15/2022 Depression 05/02/2012 06/15/2022 Generalized anxiety disorder 01/14/2012 06/15/2022 documented as of this encounter (statuses as of 03/03/2024) Immunizations Name Administration Dates Next Due Pneumococcal [...] Description 03/03/2024 4:00 PM EST Imaging Radiology [place] [facility], [place] [address] [facility] [place] [address] 03/04/2024 10:00 AM EST Laboratory Laboratory [address] [place] [phone] [place] [address] 03/05/2024 8:30 AM EST Office Visit Hematology/Oncology [facility] [place] [address] [place] [phone] Yogi Muñoz MD [address] [place] [address] 03/05/2024 9:00 AM EST Hem/Onc Treatment Hematology/Oncology Treatment, [place] [address] [place] [address] Amparo, Chair 3 Hem Onc [facility] [address] [place] [address] 07/21/2024 8:30 AM EDT Office Visit Family Medicine [address] [place] [phone] [place] [address] Scheduled Orders Name Type Priority Associated Diagnoses Orde r Schedule CBC WITH WBC DIFFERENTIAL Lab STAT Malignant neoplasm of upper lobe of right lung (HCC) Metastasis to mediastinal lymph node (HCC) Bipolar disorder, unspecified (HCC) Every 3 Weeks for 17 Occurrences starting 03/03/2024 until 03/03/2025 COMPREHENSIVE METABOLIC PANEL Lab STAT Malignant neoplasm of upper lobe of right lung (HCC) Metastasis to mediastinal lymph node (HCC) Bipolar disorder, unspecified (HCC) Every 3 Weeks for 17 Occurrences starting 03/03/2024 until 03/03/2025 TSH WITH FREE T4 IF INDICATED Lab Routine Malignant neoplasm of upper lobe of right lung (HCC) Metastasis to mediastinal lymph node (HCC) Bipolar disorder, unspecified (HCC) Every 3 Weeks for 17 Occurrences starting 03/03/2024 until 03/03/2025 Health Maintenance Due Date Last Done Comments [...] this encounter Medical Devices Implanted Type Area Auxiliary Powerplant Operator Device Identifier Shelf Expiration Date Model / Serial / Lot Device Perm Cntrl [id number] - [id number] Implanted:Qty: 2 on 09/30/2014 by Julio Ramírez MD at OR [facility] N/A: Fallopian Tube [employer] 03/02/2016 [id number] / / [id number] Description:Bilateral tubal documented as of this encounter [...] unspecified documented in this encounter Care Teams Automatic Shirring Machine Operator Relationship Specialty Start Date End Date Renetta Naidu DO [address] [place] [address] [place] [address] PCP - General Internal Medicine 11/12/23 documented as of this encounter
--- OUTSIDE RECORDS SUMMARY | 2024-04-10 00:53 | External Medical Summary | Summary of Care ---
Author Name Unknown Organization [facility] Address [address] [facility] [place] [address] Phone [phone] Care Team Providers Care Animal Doctor Name Role Phone Renetta Naidu DO Primary Care Provider Reason for Visit * Reason Comments Follow Up Return follow up Encounter Details Date Type Department Care Team (Late st Contact Info) Description 03/12/2024 11:00 AM EST Office Visit Hematology[facility]Oncology [facility] [place] [address] [facility] [place] [phone] Yogi Muñoz MD [address] [facility] [place] [address] Malignant neoplasm of upper lobe of right lung (HCC)*; Metastasis to mediastinal lymph node (HCC); Drug-induced pneumonitis Allergies Active Allergy Reactions Criticality Noted Date Comments Levofloxacin Rash 02/17/2024 documented as of this encounter (statuses as of 03/12/2024) Medications lamoTRIgine 100 MG Oral Tablet (LaMICtal) [...] as of this encounter (statuses as of 03/12/2024) Active Problems Problem Noted Date Diagnosed Date [...] as of this encounter (statuses as of 03/12/2024) Resolved Problems Problem Noted Date Diagnosed Date Resolved Date Mass of right lung 11/28/2023 Restrictive lung disease 06/15/2022 Depression 05/02/2012 06/15/2022 Generalized anxiety disorder 01/14/2012 06/15/2022 documented as of this encounter (statuses as of 03/12/2024) Immunizations Name Administration Dates Next Due Pneumococcal [...] Sign Reading Time Taken Comments Blood Pressure 127/77 03/12/2024 10:42 AM EST Pulse 95 03/12/2024 10:42 AM EST Temperature 36.2 C (97.2 F) 03/12/2024 10:[address] Respiratory Rate - - Oxygen Saturation 92% 03/12/2024 10:42 AM EST Inhaled Oxygen Concentration - - Weight 64.5 kg (142 lb 4.8 oz) 03/12/2024 10:42 AM EST Height - - Body Mass Index 26.89 12/06/2023 12:06 PM EDT documented in this encounter Progress Notes * Yogi Muñoz MD - 03/12/2024 11:00 AM EST Images from the original note were not included. Hematology/Oncology Outpatient Clinic note Pina Christensen [address] [place] [address] Name: Sarah Ponce Date: 02/27/2024 CHIEF COMPLAINT: Sarah Ponce is a 48 year old female here today for f/u visit today. HEMATOLOGY/ONCOLOGY DIAGNOSIS: Non-small cell lung cancer, large [...] Not planning for Keytruda because of pneumonitis. DIAGNOSTIC WORKUP: She has increasing shortness of [...] Lybalvi Interval History: Patient was hospitalized at [facility] 02/07/24 - 02/09/24. HISTORY OF PRESENT ILLNESS: She has come the clinic for the follow-up, accompanied by her in the office, currently she is receiving prednisone since early February of 2025, 60 mg per day, she is on PPI therapy, also on oral folic acid. In the last one week, significant improvement of the pulmonary symptoms noted, shortness of breath has improved, she is not on oxygen treatment, coughing has improved, she is on prednisone 60 mg per day. No chest pain. No nausea, no vomiting, current weight around 142 lb, no fever. No abdominal symptoms. No increasing headache. Past Medical History: Diagnosis Date Bipolar 1 [...] performed by Shiv Mann MD at OR [facility] HYSTEROSCOPY W/FALLOPIAN IMPLANTS N/A 09/30/2014 HYSTEROSCOPY SURGICAL BILATERAL FALLOPIAN TUBE performed by Julio Ramírez MD at OR [facility] INFORMATION cyst removal on chest. REMOVE [...] Ellipta 200-62.5-25 MCG/ACT Aerosol Powder Breath Activated (Lkspnxhoimd-Ajbzotconxwa-Swjvoyovgo) Inhale 1 Puff by mouth in the [...] tabletat MRI if needed 2 Tablet 0 Albuterol Sulfate HFA 108 (90 Base) MCG/ACT Inhalation Aerosol Solution TAKE 2 PUFFS BY MOUTH EVERY4 HOURS NEEDED FOR WHEEZE 18 g 1 Pantoprazole Sodium 40 MG [...] ( Saturday,Saturday and Saturday) 21 Tablet 3 Current Facility-Administered Medications Medication Dose Route Frequency Provider Last Rate Last Admin Albuterol Sulfate (Proventil) (5 MG/ML) 0.5% *conc* inhalation solution 2.5 mg 2.5 mg Nebulizer PRN Albuterol Sulfate (Proventil) (2.5 MG/3ML) 0.083% inhalation solution 2.5 mg 2.5 mg Nebulizer PRN 2.5 mg at 11/20/23 1418 REVIEW OF SYSTEMS: See HPI - otherwise negative OBJECTIVE: LMP 02/01/2021 (Approximate) BP 127/77 (BP Site: Left Arm, BP Position: Sitting, BP Cuff Size: Regular) | Pulse 95 | Temp 36.2 C (97.2 F) (Tympanic) | Wt 64.5 kg (142 lb 4.8 oz) | LMP 02/01/2021 (Approximate) | SpO2 92% | BMI 26.89 kg/m | BSA 1.67 m PHYSICAL EXAM: ECOG: Performance Status 1 = 80-90% Symptoms but nearly ambulatory General Appearance: No acute distress HEENT: Normal - No oral or pharyngeal masses, ulceration or thrush noted Lymph Nodes: Normal - No palpable lymph nodes in the neck or supraclavicular areas Lungs/Thorax: Diminished to auscultation in left lung child and RLL Heart: Normal - Regular rate and rhythm, normal S1, S2, no appreciable murmurs Pulses/Extremities: Normal - 2+ throughout and symmetrical, no edema Neurologic: Normal - Grossly intact LABS: Blood workup done on 03/04/2024: - WBC 11,600, H&H of 11.5/38, platelet count of 179,000 - BUN/Creat:9/1.0, normal LFT other than ALT 51 - TSH -->3.16, calcium 9.3 CT chest on 02/07/2024 at [facility]: 1. No pulmonary emboli identified. 2. 2.8 x 2.2 cm spiculated right upper lobe nodule likely representing the primary tumor. 3. Annie and hepatic metastases, as described above. 4. Bilateral alveolar opacities, greater within the left lung. These are nonspecific although favorpneumonia. Treatment related pneumonitis could appear similar. 5. Multiple ill-defined nodules within the lungs suggestive of metastases. CT scan of the chest on 03/03/2024: - Patchy bilateral ground-glass opacities most predominant within the lower lobe are slightly improved compared to 02/07/2024. -interval decrease in size of the right upper lobe mass and lung nodules -interval decrease in the mediastinal and hilar and gastrohepatic lymph nodes. 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 Presented with severe SOB. Treated for bilateral pneumonia with IV antibiotics. Was then discharged and completed a course of Augmentin and Azithromycin Now since early February of 2023, she is on oral prednisone for suspected immunotherapy induced pneumonitis, her pulse ox was dropped down to around 84, nowadays around 90% on room air, does come shortness of breath, reviewed the latest CT scan of the chest which was compared with the previous imaging studies done at [facility], slight improvement of the pneumonitis noted. Improvement [...] to start Keytruda because of pneumonitis symptoms. She will continue oral folic acid and Vitamin B12 injection. She will continue Bactrim prophylaxis. Once we start her on treatment, will see her before the next cycle. Dr. Yogi Muñoz Hem/Onc (This note [...] Nursing Notes * Krystal Carter CMA - 03/12/2024 10:42 AM EST Patient identifed by name and [...] it for you? ALREADY ACTIVE Filed Vitals: 03/12/24 1042 BP: 127/77 Pulse: 95 Temp: 36.2 C (97.2 F) TempSrc: Tympanic SpO2: 92% Weight: 64.5 kg (142 lb 4.8 oz) Patient was instructed to [...] 8:30 AM EDT Office Visit Family Medicine [address] [place] [phone] [place] [address] Health Maintenance Due Date Last [...] this encounter Medical Devices Implanted Type Area Wind Energy Engineer Device Identifier Shelf Expiration Date Model / Serial / Lot Device Perm Cntrl [id number] - [id number] Implanted:Qty: 2 on 09/30/2014 by Julio Ramírez MD at 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
--- OUTSIDE RECORDS SUMMARY | 2024-04-10 00:53 | External Medical Summary | Summary of Care ---
Author Name Unknown Organization [facility] [address] [facility] [address] Phone [phone] Care Team Providers Care Castings Trimmer Name Role Phone NaiduRenetta DO Primary Care Provider Reason for Referral * Precert (Within 24 hrs (call dept; emergent)) - Authorized Specialty Diagnoses / Procedures Referred By Contac t Referred To Contact Radiology Diagnoses Malignant neoplasm of upper lobe of right lung (HCC) Metastasis to mediastinal lymph node (HCC) Drug-induced pneumonitis Procedures CT CHEST W CONTRAST Consuelo Jarvis CRNP [address] [place] [address] Phone: tel: fax: Referral ID Status Reason Start Date Expiration Date V isits Requested Visits Authorized [id number] Authorized 02/27/2024 999 999 Reason for Visit * Reason Onset Date Comments Test Results Imaging Study 02/27/2024 Encounter Details Date Type Department Care Team (Late st Contact Info) Description 02/27/2024 Telephone Hematology/Oncology [facility] [address] [place] [address] Consuelo Jarvis CRNP [address] [place] [address] Test Results Imaging Study Allergies Active Allergy Reactions Criticality Noted Date Comments Levofloxacin Rash 02/17/2024 documented as of this encounter (statuses as of 03/02/2024) Medications lamoTRIgine 100 MG Oral Tablet (LaMICtal) [...] as of this encounter (statuses as of 03/02/2024) Active Problems Problem Noted Date Diagnosed Date [...] as of this encounter (statuses as of 03/02/2024) Resolved Problems Problem Noted Date Diagnosed Date Resolved Date Mass of right lung 11/28/2023 Restrictive lung disease 06/15/2022 Depression 05/02/2012 06/15/2022 Generalized anxiety disorder 01/14/2012 06/15/2022 documented as of this encounter (statuses as of 03/02/2024) Immunizations Name Administration Dates Next Due Pneumococcal [...] Telephone Encounter - Clare Obrien OSA - 02/28/2024 8:[address] [facility] they are pushing the img and the report over. Called pt and was able to get her on the schedule for 03/03 at 4 pt is aware * Telephone Encounter - Vivian Booker RN - 02/28/2024 7:48 AM EST Scheduling: - please have CT images from [facility] 02/07/24 pushed to [facility] - please schedule CT prior to 03/05 office visit (see if patient will go to alternate site) * Telephone Encounter - Consuelo Jarvis CRNP - 02/27/2024 4:30 PM EST Chest X ray completed today: IMPRESSION New patchy airspace opacities in both lungs, favoring an infectious etiology. Reviewed with Dr. Yogi Muñoz. Would like a CT chest to better evaluate. Order placed. Please assist with scheduling. Should be completed prior to f/u visit scheduled 03/05/24. Please request images from CT chest completed 02/07/[address] [facility] be pushed into our system. Called patient and reviewed above. Verbalized understanding. documented in this encounter Plan of Treatment Upcoming Encounters Date Type Department Care Team (Late st Contact Info) Description 03/03/2024 4:00 PM EST Imaging Radiology [facility] [place] [address] [facility] [place] [address] 03/04/2024 10:00 AM EST Laboratory Laboratory [address] [place] [phone] [address] [place] [address] 03/05/2024 8:30 AM EST Office Visit Hematology/Oncology [facility] [place] [address] [place] [phone] Yogi Muñoz MD [address] [place] [address] 03/05/2024 9:00 AM EST Hem/Onc Treatment Hematology/Oncology Treatment, [place] [address] [place] [phone] Amparo, Chair 3 Hem Onc [address] [place] [address] 07/21/2024 8:30 AM EDT Office Visit Family Medicine [address] [place] [address] Renetta Naidu [address] [place] [address] Scheduled Orders Name Type Priority Associated Diagnoses Orde r Schedule CT CHEST W CONTRAST Medical Imaging STAT Malignant neoplasm of upper lobe of right lung (HCC) Metastasis to mediastinal lymph node (HCC) Drug-induced pneumonitis Ordered: 02/27/2024 Health Maintenance Due Date Last Done Comments [...] this encounter Medical Devices Implanted Type Area Cdl Bulk Driver Device Identifier Shelf Expiration Date Model / Serial / Lot Device Perm Cntrl [id number] - [id number] Implanted:Qty: 2 on 09/30/2014 by Julio Ramírez MD at OR [facility] N/A: Fallopian Tube [employer] 03/02/2016 [id number] / / [id number] Description:Bilateral tubal documented as of this encounter Visit Diagnoses Diagnosis Malignant neoplasm of upper lobe of right lung (HCC)- Primary Malignant neoplasm of upper lobe, bronchus or lung 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
--- OUTSIDE RECORDS SUMMARY | 2024-04-10 00:53 | External Medical Summary | Summary of Care ---
Author Name Unknown Organization [facility] Address [address] [facility] [place] [address] Phone [phone] Care Team Providers Care Potato Chip Packaging Machine Operator Name Role Phone Renetta Naidu DO Primary Care Provider Reason for Visit * Reason Comments Outpatient Testing Encounter Details Date Type Department Care Team (Late st Contact Info) Description 03/04/2024 10:00 AM EST Laboratory Laboratory [address] [place] [phone] [place] [address] Malignant neoplasm of upper lobe of right lung (HCC); Metastasis to mediastinal lymph node (HCC); Bipolar disorder, unspecified (HCC) Allergies Active Allergy Reactions Criticality Noted Date Comments Levofloxacin Rash 02/17/2024 documented as of this encounter (statuses as of 03/04/2024) Medications lamoTRIgine 100 MG Oral Tablet (LaMICtal) [...] as of this encounter (statuses as of 03/04/2024) Active Problems Problem Noted Date Diagnosed Date [...] as of this encounter (statuses as of 03/04/2024) Resolved Problems Problem Noted Date Diagnosed Date Resolved Date Mass of right lung 11/28/2023 4 Restrictive lung disease 06/15/2022 Depression 05/02/2012 06/15/2022 Generalized anxiety disorder 01/14/2012 06/15/2022 documented as of this encounter (statuses as of 03/04/2024) Immunizations Name Administration Dates Next Due Pneumococcal [...] Care Team (Late st Contact Info) Description 03/05/2024 8:30 AM EST Office Visit Hematology/Oncology [facility] [address] [place] [phone] Yogi Muñoz MD [address] [place] [address] [place] [address] 03/05/2024 9:00 AM EST Hem/Onc Treatment Hematology/Oncology Treatment, [address] [place] [phone] Amparo, Chair 3 Hem Onc [address] [place] [address] 07/21/2024 8:30 AM EDT Office Visit Family Medicine [address] [place] [phone] [address] [place] [address] Pending Results Name Type Priority Associated Diagnoses Date /Time CBC WITH WBC DIFFERENTIAL Lab STAT Malignant neoplasm of upper lobe of right lung (HCC) Metastasis to mediastinal lymph node (HCC) Bipolar disorder, unspecified (HCC) 03/04/2024 9:48 AM EST COMPREHENSIVE METABOLIC PANEL Lab STAT Malignant neoplasm of upper lobe of right lung (HCC) Metastasis to mediastinal lymph node (HCC) Bipolar disorder, unspecified (HCC) 03/04/2024 9:48 AM EST TSH WITH FREE T4 IF INDICATED Lab Routine Malignant neoplasm of upper lobe of right lung (HCC) Metastasis to mediastinal lymph node (HCC) Bipolar disorder, unspecified (HCC) 03/04/2024 9:48 AM EST CBC Lab STAT Malignant neoplasm of upper lobe of right lung (HCC) Metastasis to mediastinal lymph node (HCC) Bipolar disorder, unspecified (HCC) 03/04/2024 9:48 AM EST DIFFERENTIAL, AUTOMATED Lab STAT Malignant neoplasm of upper lobe of right lung (HCC) Metastasis to mediastinal lymph node (HCC) Bipolar disorder, unspecified (HCC) 03/04/2024 9:48 AM EST Health Maintenance Due Date Last [...] this encounter Medical Devices Implanted Type Area Headliner Installer Device Identifier Shelf Expiration Date Model / Serial / Lot Device Perm Cntrl [id number] - [id number] Implanted:Qty: 2 on 09/30/2014 by Julio Ramírez MD at OR [facility] N/A: Fallopian Tube [employer] 03/02/2016 [id number] / / [id number] Description:Bilateral tubal documented as of this encounter Visit Diagnoses Diagnosis Malignant neoplasm of upper lobe of right lung (HCC) Malignant neoplasm of upper lobe, bronchus or lung 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
--- OUTSIDE RECORDS SUMMARY | 2024-04-10 00:53 | External Medical Summary | Summary of Care ---
Author Name Unknown Organization [facility] Address [address] [place] [address] Phone [phone] Care Team Providers Care Park Naturalist Name Role Phone Renetta Naidu DO Primary [...] INJECTION [place] INJ PEMBROLIZUMAB Yogi Muñoz MD [address] [place] [address] [place] [address] Phone: tel: fax: Hematology/Oncology Treatment, [address] [address] Phone: tel: fax: Referral ID Status Reason Start Date Expiration Date V isits Requested Visits Authorized [id number] Authorized 12/06/2023 02/17/[phone] Encounter Details Date Type Department Care Team (Latest Contact Info) Description 01/24/2024 9:30 AM EST Hem/Onc Treatment Hematology/Oncolog y Treatment, [address] [address] Amparo, Chair 8 Hem Onc Scenery 200 [facility], [place] [address] Encounter for antineoplastic chemotherapy*; Malignant [...] Description 03/03/2024 4:00 PM EST Imaging Radiology [address], [place] 132 [facility] [place] [address] 03/04/2024 10:00 AM EST Laboratory Laboratory [address] [place] [phone] [place] [address] 03/05/2024 8:30 AM EST Office Visit Hematology/Oncology [facility] 200 [facility] [place] [phone] Yogi Muñoz MD 200 [facility] [place] [address] 03/05/2024 9:00 AM EST Hem/Onc Treatment Hematology/Oncology Treatment, [place] 200 [facility] [place] [phone] Amparo, Chair 3 Hem Onc [address] [place] [address] 07/21/2024 8:30 AM EDT Office Visit Family Medicine [address] [place] [phone] Renetta [address] [place] [address] Health Maintenance Due Date Last Done Comments [...] this encounter Medical Devices Implanted Type Area Finish Opener Device Identifier Shelf Expiration Date Model / Serial / Lot Device Perm Cntrl [id number] - [id number] Implanted:Qty: 2 on 09/30/2014 by Julio Ramírez MD at OR [facility] N/A: Fallopian Tube [employer] 03/02/2016 [id number] / / [id number] Description:Bilateral tubal documented as of this encounter [...] Upper documented in this encounter Care Teams Park Naturalist Relationship Specialty Start Date End Date Renetta Naidu DO [address] [place] [address] [place] [address] PCP - General Internal Medicine 11/12/23 documented as of this encounter
--- OUTSIDE RECORDS SUMMARY | 2024-04-10 00:53 | External Medical Summary | Summary of Care ---
Author Name Unknown Organization [facility] Address 100 [place] [address] Phone [phone] Care Team Providers Care Sizer Hand Name Role Phone Renetta Naidu DO Primary Care Provider Reason for Visit * Reason Comments Treatment Encounter Details Date Type Department Care Team (Late st Contact Info) Description 03/05/2024 8:30 AM EST Office Visit [facility] 200 [facility] [place] [address] Yogi Muñoz MD 200 [facility] [place] [address] Malignant neoplasm of upper lobe of right lung (HCC)*; Metastasis to mediastinal lymph node (HCC); Drug-induced pneumonitis Allergies Active Allergy Reactions Criticality Noted Date Comments Levofloxacin Rash 02/17/2024 documented as of this encounter (statuses as of 03/09/2024) Medications lamoTRIgine 100 MG Oral Tablet (LaMICtal) [...] as of this encounter (statuses as of 03/09/2024) Active Problems Problem Noted Date Diagnosed Date [...] as of this encounter (statuses as of 03/09/2024) Resolved Problems Problem Noted Date Diagnosed Date Resolved Date Mass of right lung 11/28/2023 Restrictive lung disease 06/15/2022 Depression 05/02/2012 06/15/2022 Generalized anxiety disorder 01/14/2012 06/15/2022 documented as of this encounter (statuses as of 03/09/2024) Immunizations Name Administration Dates Next Due Pneumococcal Polysaccharide PPV23 (Pneumovax) Seasonal Influenza Vac., MDV, IM, 0.5 mL (Fluzon e) 12/14/2011 TDAP (age 10 and older)(Boostrix) 06/12/2012 documented as of this encounter Social History Tobacco Use Types Packs/Day Years Used Date Smoking Tobacco: Every Day Cigarettes 1.5 31 Smokeless Tobacco: Never Comments:1 12 ppd. Every da y smoker. 10/28/23. Alcohol [...] Sign Reading Time Taken Comments Blood Pressure 128/76 03/05/2024 8:12 AM EST Pulse 120 03/05/2024 8:12 AM EST Temperature 36.3 C (97.4 F) 03/05/2024 8:12 AM ES T Respiratory Rate - - Oxygen Saturation 90% 03/05/2024 8:12 AM EST Inhaled Oxygen Concentration - - Weight 65.8 kg (145 lb 1.6 oz) 03/05/2024 8:12 A M EST Height - - Body Mass Index 27.42 12/06/2023 12:06 PM EDT documented in this encounter Progress Notes * Yogi Muñoz MD - 03/05/2024 8:29 AM EST Images from the original note were not included. Hematology/Oncology Outpatient Clinic note Pina Christensen [address] [place] [address] Name: Sarah Ponce Date: 02/27/2024 CHIEF COMPLAINT: [...] day. Prednisone 60 mg daily since 02/21/24 03/05/2024 --> starting Bactrim prophylaxis DIAGNOSTIC WORKUP: [...] Lybalvi Interval History: Patient was hospitalized at [facility] 02/07/24 - 02/09/24. HISTORY OF PRESENT ILLNESS: She has come the clinic for the follow-up, accompanied by her in the office, currently she is receiving prednisone since early February of 2025, 60 mg per day, she is on PPI therapy Oncu so folic acid. Slight improvement of the pulmonary symptoms, not on oxygen treatment but oxygen saturation around 90% on room air, does, shortness of breath on exertion, no chest pain, no nausea, no vomiting, current weight around 145 lb, no fever. No abdominal symptoms. No [...] performed by Shiv Mann MD at OR [facility] HYSTEROSCOPY W/FALLOPIAN IMPLANTS N/A 09/30/2014 HYSTEROSCOPY SURGICAL BILATERAL FALLOPIAN TUBE performed by Julio Ramírez MD at OR [facility] INFORMATION cyst removal on chest. REMOVE GALLBLADDER [...] Cigarettes Smokeless tobacco: Never Tobacco comments: 1 2 ppd. Every day smoker. 10/28/23. Vaping Use [...] Current Outpatient Medications Medication Sig Dispense Refill Sulfamethoxazole-Trimethoprim 800-160 MG Oral Tablet (Bactrim DS) One tab 3 days a week ( Saturday,Saturday and Saturday) 21 Tablet 3 lamoTRIgine 100 MG Oral Tablet (LaMICtal) TAKE 1 TABLET BY MOUTH 2 TIME(S) PER DAY Lybalvi 20-10 MG Oral Tablet ONE TABLET BY MOUTH AT BEDTIME FOR MOOD Trelegy Ellipta 200-62.5-25 MCG/ACT Aerosol Powder Breath Activated (Rmtqsezxjjv-Okyrezptgcfo-Zkbntrkyns) Inhale 1 Puff by mouth in the [...] directed by Oncology office. 200 Tablet 0 Current Facility-Administered Medications Medication Dose Route Frequency Provider Last Rate Last Admin Albuterol Sulfate (Proventil) (5 MG/ML) 0.5% *conc* inhalation solution 2.5 mg 2.5 mg Nebulizer PRN Albuterol Sulfate (Proventil) (2.5 MG/3ML) 0.083% inhalation solution 2.5 mg 2.5 mg Nebulizer PRN 2.5 mg at 11/20/23 1418 REVIEW OF SYSTEMS: See HPI - otherwise negative OBJECTIVE: BP 128/76 (BP Site: Left Arm, BP Position: Sitting, BP Cuff Size: Regular) | Pulse 120 | Temp 36.3 C (97.4 F) (Tympanic) | Wt 65.8 kg (145 lb 1.6 oz) | LMP 02/01/2021 (Approximate) | SpO2 90% | BMI 27.42 kg/m | BSA 1.68 m PHYSICAL EXAM: ECOG: Performance Status 1 [...] calcium 9.3 CT chest on 02/07/2024 at [facility]: 1. No pulmonary emboli identified. 2. 2.8 [...] Anemia d/t chemotherapy Patient was hospitalized at [facility] 02/07/24 - 02/09/24. Presented with severe SOB. [...] with the previous imaging studies done at [facility], slight improvement of the pneumonitis noted. Improvement of the previously noted right upper lobe lung mass and lymphadenopathy in the chest. She will continue prednisone therapy 60 mg every day, continue proton pump inhibitor. She will continue folic acid every day. I would like to start Bactrim prophylaxis. I would like to see her in about [address] Yogi Muñoz Hem/Onc (This note was [...] Notes * Talisha Tian MED ASSIST - 03/05/2024 8:13 AM EST Patient identifed by name and [...] it for you? ALREADY ACTIVE Filed Vitals: 03/05/24 0812 BP: 128/76 Pulse: 120 Temp: 36.3 C (97.4 F) TempSrc: Tympanic SpO2: 90% Weight: 65.8 kg (145 lb 1.6 oz) Patient was instructed to not get [...] 03/12/2024 11:00 AM EST Office Visit Hematology/Oncology [employer] [address] [phone] Yogi Muñoz MD 200 [facility] [place] [address] 07/21/2024 8:30 AM EDT Office Visit Family [address] [phone] Renetta Naidu, [address] [place] [address] Health Maintenance Due Date Last Done Comments [...] this encounter Medical Devices Implanted Type Area Business Continuity Analyst Device Identifier Shelf Expiration Date Model / Serial / Lot Device Perm Cntrl [id number] - [id number] Implanted:Qty: 2 on 09/30/2014 by Julio Ramírez MD at OR [facility] N/A: Fallopian Tube [employer] 03/02/2016 [id number] / / [id number] Description:Bilateral tubal documented as of this encounter Visit Diagnoses Diagnosis Malignant neoplasm of upper lobe of right lung (HCC)- Primary Malignant neoplasm of upper lobe, bronchus or lung 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
--- OUTSIDE RECORDS SUMMARY | 2024-04-10 00:53 | External Medical Summary ---
Author Name Unknown Address Unknown Organization K01:[facility] [address] [facility] [place] [address] Laboratory Report Ordering Provider Test Date Status JARED MAGAÑA 03/04/2024 09:48:15 Final Observation Date Value Abnormality Reference (Units ) Status SYNC LEUKOCYTES IN BLOOD BY AUTOMATED COUNT 03/04/2024 09:48:15 11.60 Above high normal 4.00-10.80 (K/uL) Final Segs 03/04/2024 09:48:15 63.6 40.0-75.0 (%) Final Lymphs % 03/04/2024 09:48:15 26.9 18.0-42.0 (%) Final Monos 03/04/2024 09:48:15 7.1 1.0-11.0 (%) Final Eosinophils 03/04/2024 09:48:15 1.2 0.0-6.0 (%) Final Basos 03/04/2024 09:48:15 0.3 0.0-2.0 (%) Final Immature Granulocyte, Percent 03/04/2024 09:48:15 0.9 0.0-2.0 (%) Final Absolute Segs 03/04/2024 09:48:15 7.38 1.80-7.70 (K/uL) Final Lymphs, absolute 03/04/2024 09:48:15 3.12 1.00-4.80 (K/ul) Final Monos, Abs 03/04/2024 09:48:15 0.82 0.00-1.10 (K/uL) Final Eos, Abs 03/04/2024 09:48:15 0.14 0.00-0.70 (K/uL) Final Basos, Abs 03/04/2024 09:48:15 0.03 0.00-0.20 (K/uL) Final Immature Granulocytes, Number 03/04/2024 09:48:15 0.11 0.00-0.20 (K/uL) Final Performing Location [facility] [address]. [facility] [address]
--- OUTSIDE RECORDS SUMMARY | 2024-04-10 00:53 | External Medical Summary | Summary of Care ---
Author Name Unknown Organization [facility] Address 100 [place] [address] Phone [phone] Care Team Providers Care Equipment Superintendent Name Role Phone Naidu Renetta Mcdaniel Primary Care Provider Reason for Visit * Reason Onset Date Comments Appointment 03/13/2024 Carbo/Alimta Encounter Details Date Type Department Care Team (Late st Contact Info) Description 03/13/2024 Telephone Hematology/Oncology [facility] [place] [address] [place] [address] Yogi Muñoz MD 200 [facility] [place] [address] Appointment (Carbo/Alimta) Allergies Active Allergy Reactions Criticality [...] 8:30 AM EDT Office Visit Family Medicine [address] [place] [address] [place] [address] Health Maintenance Due Date Last Done Comments [...] this encounter Medical Devices Implanted Type Area Manual Training Teacher Device Identifier Shelf Expiration Date Model / Serial / Lot Device Perm Cntrl [id number] - [id number] Implanted:Qty: 2 on 09/30/2014 by Julio Ramírez MD at OR [facility] N/A: Fallopian Tube [employer] 03/02/2016 [id number] / / [id number] Description:Bilateral tubal documented as of this encounter Care Teams Equipment Superintendent Relationship Specialty Start Date End Date Renetta Naidu DO [address] [place] [address] [place] [address] PCP - General Internal Medicine 11/12/23 documented as of this encounter
--- OUTSIDE RECORDS SUMMARY | 2024-04-10 00:53 | External Medical Summary | Summary of Care ---
Author Name Unknown Organization [facility] Address [address] [facility] [address] Phone [phone] Care Team Providers Care Auditor Medical Claims Name Role Phone NaiduMaciejRenetta Mcdaniel Primary Care Provider Encounter Details Date Type Department Care Team (Late st Contact Info) Description 03/13/2024 Orders Only Hematology/Oncology [facility] Ampar[place] 200 [facility] [place] [address] Yogi Muñoz MD 200 [facility] [address] Allergies Active Allergy Reactions Criticality Noted Date [...] AM EDT Office Visit Family Medicine [address] [phone] [place] [address] Health Maintenance Due Date Last Done Comments [...] this encounter Medical Devices Implanted Type Area Space Systems Operations Manager Device Identifier Shelf Expiration Date Model / Serial / Lot Device Perm Cntrl [id number] - [id number] Implanted:Qty: 2 on 09/30/2014 by Julio Ramírez MD at OR [facility] N/A: Fallopian Tube [employer] 03/02/2016 [id number] / / [id number] Description:Bilateral tubal documented as of this encounter Care Teams Auditor Medical Claims Relationship Specialty Start Date End Date Renetta Naidu DO [address] [place] [address] [place] [address] PCP - General Internal Medicine 11/12/23 documented as of this encounter
--- OUTSIDE RECORDS SUMMARY | 2024-04-10 00:53 | External Medical Summary | Summary of Care ---
Author Name Unknown Organization [facility] Address 100 [place] [address] Phone [phone] Care Team Providers Care Executive Wellness Programs Director Name Role Phone Naidu Renetta Mcdaniel Primary Care Provider Reason for Visit * Reason Onset Date Comments Appointment 03/13/2024 Carbo/Alimta Encounter Details Date Type Department Care Team (Late st Contact Info) Description 03/13/2024 Telephone Hematology/Oncology [facility] [place] [address] [place] [address] Yogi Muñoz MD 200 [facility] [place] [address] Appointment (Carbo/Alimta) Allergies Active Allergy Reactions Criticality [...] Description 03/26/2024 10:00 AM EST Laboratory Laboratory [address] [place] [phone] [place] [address] 03/27/2024 10:00 AM EST Hem/Onc Treatment Hematology/Oncology Treatment, [address] [place] [phone] Amparo, Chair 1 Hem Onc Scenery [address] [place] [address] 07/21/2024 8:30 AM EDT Office Visit Family Medicine [address] [place] [phone] [address] [place] [address] Health Maintenance Due Date Last Done Comments [...] this encounter Medical Devices Implanted Type Area Electrical Maintenance Supervisor Device Identifier Shelf Expiration Date Model / Serial / Lot Device Perm Cntrl [id number] - [id number] Implanted:Qty: 2 on 09/30/2014 by Julio Ramírez MD at OR [facility] N/A: Fallopian Tube [employer] 03/02/2016 [id number] / / [id number] Description:Bilateral tubal documented as of this encounter Care Teams Executive Wellness Programs Director Relationship Specialty Start Date End Date Renetta Naidu DO [address] [place] [address] [place] [address] PCP - General Internal Medicine 11/12/23 documented as of this encounter
--- OUTSIDE RECORDS SUMMARY | 2024-04-10 00:54 | External Medical Summary | Summary of Care ---
Author Name Unknown Organization [facility] Address [address] [facility] [address] Phone [phone] Care Team Providers Care Development Spec Name Role Phone Naidu Renetta Mcdaniel Primary Care Provider [phone] Encounter Details Date Type Department Care Team (Late st Contact Info) Description 02/07/2024 Orders Only Hematology/Oncology [facility] [place]par[place] 200 [facility] [place] [address] Yogi Muñoz MD 200 [facility] [address] Allergies Active Allergy Reactions Criticality Noted Date Comments Levofloxacin Rash 02/17/2024 documented as of this encounter (statuses as of 02/28/2024) Medications lamoTRIgine 100 MG Oral Tablet (LaMICtal) [...] as of this encounter (statuses as of 02/28/2024) Active Problems Problem Noted Date Diagnosed Date [...] as of this encounter (statuses as of 02/28/2024) Resolved Problems Problem Noted Date Diagnosed Date Resolved Date Mass of right lung 11/28/2023 Restrictive lung disease 06/15/2022 Depression 05/02/2012 06/15/2022 Generalized anxiety disorder 01/14/2012 06/15/2022 documented as of this encounter (statuses as of 02/28/2024) Immunizations Name Administration Dates Next Due Pneumococcal [...] Description 03/03/2024 4:00 PM EST Imaging Radiology [address], [place] 132 [facility] [place] [address] 03/04/2024 10:00 AM EST Laboratory Laboratory [address] [place] [phone] [place] [address] 03/05/2024 8:30 AM EST Office Visit Hematology/Oncology [facility] 200 [facility] [place] [phone] Yogi Muñoz MD 200 [facility] [place] [address] 03/05/2024 9:00 AM EST Hem/Onc Treatment Hematology/Oncology Treatment, [place] 200 [facility] [place] [phone] Amparo, Chair 3 Hem On[address] [place] [address] 07/21/2024 8:30 AM EDT Office Visit Family Medicine [address] [place] [phone] Renetta Naidu[address] [place] [address] Health Maintenance Due Date Last Done Comments [...] this encounter Medical Devices Implanted Type Area Chief Payroll Clerk Device Identifier Shelf Expiration Date Model / Serial / Lot Device Perm Cntrl [id number] - [id number] Implanted:Qty: 2 on 09/30/2014 by Julio Ramírez MD at OR [facility] N/A: Fallopian Tube [employer] 03/02/2016 [id number] / / [id number] Description:Bilateral tubal documented as of this encounter [...] interpreted or resulted by a [facility] or [employer] contracted radiologist. us Yogi Muñoz MD RAD CT Final Result documented in this encounter Care Teams Development Spec Relationship Specialty Start Date End Date Renetta Naidu DO [address] [place] [address] [place] [address] PCP - General Internal Medicine 11/12/23 documented as of this encounter
--- OUTSIDE RECORDS SUMMARY | 2024-04-10 00:54 | External Medical Summary | Summary of Care ---
Author Name Unknown Organization [facility] Address [address] [place] [address] Phone [phone] Care Team Providers Care Shovel Loader Operator Name Role Phone Renetta Naidu DO [...] INJECTION [place] INJ PEMBROLIZUMAB Yogi Muñoz MD [address] [place] [address] [place] [address] Phone: tel: fax: Hematology/Oncology Treatment, [address] [address] Phone: tel: fax: Referral ID Status Reason Start Date Expiration Date V isits Requested Visits Authorized [id number] Authorized 12/06/2023 02/17/[phone] Encounter Details Date Type Department Care Team (Latest Contact Info) Description 01/24/2024 9:30 AM EST Hem/Onc Treatment Hematology/Oncolog y Treatment, [address] [address] Amparo, Chair 8 Hem Onc Scenery 200 [facility], [place] [address] Encounter for antineoplastic chemotherapy*; [...] Description 03/03/2024 4:00 PM EST Imaging Radiology [address], [place] 132 [facility] [place] [address] 03/04/2024 10:00 AM EST Laboratory Laboratory [address] [place] [phone] [place] [address] 03/05/2024 8:30 AM EST Office Visit Hematology/Oncology [facility] 200 [place] [phone] Yogi Muñoz MD 200 [facility] [place] [address] 03/05/2024 9:00 AM EST Hem/Onc Treatment Hematology/Oncology Treatment, [place] 200 [facility] [place] [phone] Amparo, Chair 3 Hem On[address] [place] [address] 07/21/2024 8:30 AM EDT Office Visit Family Medicine [address] [place] [phone] Renetta Na[address] [place] [address] Health Maintenance Due Date Last Done Comments [...] this encounter Medical Devices Implanted Type Area Cnc Machinist Device Identifier Shelf Expiration Date Model / Serial / Lot Device Perm Cntrl [id number] - [id number] Implanted:Qty: 2 on 09/30/2014 by Julio Ramírez MD at OR [facility] N/A: Fallopian Tube [employer] 03/02/2016 [id number] / / [id number] Description:Bilateral tubal documented as of this encounter [...] Upper documented in this encounter Care Teams Shovel Loader Operator Relationship Specialty Start Date End Date Renetta Naidu DO [address] [place] [address] [place] [address] PCP - General Internal Medicine 11/12/23 documented as of this encounter
--- OUTSIDE RECORDS SUMMARY | 2024-04-10 00:54 | External Medical Summary | Summary of Care ---
Author Name Unknown Organization [facility] Address [address] [facility] [address] Phone [phone] Care Team Providers Care Piano Mechanic Name Role Phone Renetta Naidu DO Primary Care Provider Encounter Details Date Type Department Care Team (Late st Contact Info) Description 02/28/2024 Orders Only Family Medicine [address] [place] [phone] Renetta Naidu DO [address] [place] [address] [place] [address] Allergies Active Allergy Reactions Criticality Noted Date [...] Description 03/03/2024 4:00 PM EST Imaging Radiology [address] [place] [address] 03/04/2024 10:00 AM EST Laboratory Laboratory [address] [place] [phone] [place] [address] 03/05/2024 8:30 AM EST Office Visit Hematology/Oncology [address] [place] [phone] Yogi Muñoz MD [address] [place] [address] [place] [address] 03/05/2024 9:00 AM EST Hem/Onc Treatment Hematology/Oncology Treatment, [place] 200 [facility] [place] [phone] Amparo, Chair 3 Hem On[address] [place] [address] 07/21/2024 8:30 AM EDT Office Visit Family Medicine [address] [place] [phone] Renetta Naidu, [address] [place] [address] Health Maintenance Due [...] this encounter Medical Devices Implanted Type Area Loss Prevention Guard Device Identifier Shelf Expiration Date Model / Serial / Lot Device Perm Cntrl [id number] - [id number] Implanted:Qty: 2 on 09/30/2014 by Julio Ramírez MD at OR [facility] N/A: Fallopian Tube [employer] 03/02/2016 [id number] / / [id number] Description:Bilateral tubal documented as of this encounter Procedures Procedure Name Priority Date/Time Associated Diagnosis Comments CTA CHEST NON-CORONARY W CONTRAST Routine 02/07/2024 documented in this encounter Results * CTA CHEST NON-CORONARY W CONTRAST (02/07/2024) Anatomical Region Laterality Modality Chest, Cardio, Body Other 02/07/2024 Ricardo Werner PA-C RAD CT Final R esult documented in this encounter Care Teams Piano Mechanic Relationship Specialty Start Date End Date Renetta Naidu DO [address] [place] [address] [place] [address] PCP - General Internal Medicine 11/12/23 documented as of this encounter
--- OUTSIDE RECORDS SUMMARY | 2024-04-10 00:54 | External Medical Summary | Summary of Care ---
Author Name Unknown Organization [facility] Address [address] [facility] [address] Phone [phone] Care Team Providers Care Help Desk Specialist Name Role Phone NaiduRenetta DO Primary Care Provider Reason for Referral * Precert (Within 24 hrs (call dept; emergent)) - Authorized Specialty Diagnoses / Procedures Referred By Contac t Referred To Contact Radiology Diagnoses Malignant neoplasm of upper lobe of right lung (HCC) Metastasis to mediastinal lymph node (HCC) Drug-induced pneumonitis Procedures CT CHEST W CONTRAST Consuelo Jarvis CRNP [address] [address] Phone: tel: fax: Referral ID Status Reason Start Date Expiration Date V isits Requested Visits Authorized [id number] Authorized 02/27/2024 999 999 Reason for Visit * Reason Onset Date Comments Test Results Imaging Study 02/27/2024 Encounter Details Date Type Department Care Team (Late st Contact Info) Description 02/27/2024 Telephone Hematology/Oncology [facility] [address] [place] [address] Consuelo Jarvis CRNP [address] [place] [address] Test Results Imaging Study [...] Miscellaneous Notes * Telephone Encounter - Clare Obrein OSA - 02/28/2024 8:30 AM EST Called [facility] they are pushing the img and the report over. Called pt and was able to get her on the schedule for 03/03 at 4 pt is aware * Telephone Encounter - Vivian Booker RN - 02/28/2024 7:48 AM EST Scheduling: - please have CT images from [facility] 02/07/24 pushed to [facility] - please schedule CT prior to 03/05 [...] images from CT chest completed 02/07/24 at [facility] be pushed into our system. Called patient and reviewed above. Verbalized understanding. documented in this encounter Plan of Treatment Upcoming Encounters Date Type Department Care Team (Late st Contact Info) Description 03/04/2024 10:00 AM EST Laboratory Laboratory [address] [place] [phone] [place] [address] 03/05/2024 8:30 AM EST Office Visit Hematology/Oncology [facility] [place] [address] [place] [address] Yogi Muñoz MD 200 [facility] [place] [address] 03/05/2024 9:00 AM EST Hem/Onc Treatment Hematology/Oncology Treatment, [place] [address] [place] [phone] Amparo, Chair 3 Hem Onc [facility] 200 [facility] [place] [address] 07/21/2024 8:30 AM EDT Office Visit Family Medicine [address] [place] [phone] [place] [address] Scheduled Orders Name Type Priority Associated Diagnoses [...] this encounter Medical Devices Implanted Type Area Looping Machine Operator Device Identifier Shelf Expiration Date Model / Serial / Lot Device Perm Cntrl [id number] - [id number] Implanted:Qty: 2 on 09/30/2014 by Julio Ramírez MD at OR 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
--- OUTSIDE RECORDS SUMMARY | 2024-04-10 00:54 | External Medical Summary ---
Author Name Unknown Address Unknown Organization K01:LABORATORY [facility] [place] - [address] [place] [address] Laboratory Report Ordering Provider Test Date Status JARED MAGAÑA 02/21/2024 11:00:57 Final Observation Date Value Abnormality Reference (Units ) Status TSH 02/21/2024 11:00:57 2.09 0.27-4.20 (uIU/mL) Final Performing Location LABORATORY C - [address] [place] [address]
--- OUTSIDE RECORDS SUMMARY | 2024-04-10 00:54 | External Medical Summary | Summary of Care ---
Author Name Unknown Organization [facility] Address [address] [facility] [address] Phone [phone] Care Team Providers Care Environment Coordinator Name Role Phone Renetta Naidu DO Primary Care Provider Reason for Visit * Reason Comments Outpatient Testing Encounter Details Date Type Department Care Team (Late st Contact Info) Description 02/21/2024 3:30 PM EST Laboratory [facility] [address] [place] [address] [facility] [address] [place] [address] Malignant neoplasm of upper lobe of right lung (HCC); Metastasis to mediastinal lymph node (HCC); Bipolar disorder, unspecified (HCC) Allergies Active Allergy Reactions Criticality Noted Date Comments Levofloxacin Rash 02/17/2024 documented as of this encounter (statuses as of 02/21/2024) Medications lamoTRIgine 100 MG Oral Tablet (LaMICtal) [...] daily until gone 6 Tablet 4 Active Polymyxin B-Trimethoprim 52033-2.1 UNIT/ML-% Ophthalmic Solution Instill 1 Drop into both eyes every 3 hours while awake for 7 days. (6 times a day) for 7 days. 10 mL 4 02/23/19 25 Active Hospital, Clinic, or Other Facility Administered [...] as of this encounter (statuses as of 02/21/2024) Active Problems Problem Noted Date Diagnosed Date [...] as of this encounter (statuses as of 02/21/2024) Resolved Problems Problem Noted Date Diagnosed Date Resolved Date Mass of right lung 11/28/2023 Restrictive lung disease 06/15/2022 Depression 05/02/2012 06/15/2022 Generalized anxiety disorder 01/14/2012 06/15/2022 documented as of this encounter (statuses as of 02/21/2024) Immunizations Name Administration Dates Next Due Pneumococcal [...] Care Team (Late st Contact Info) Description 02/21/2024 11:30 AM EST Hem/Onc Treatment Hematology/Oncology Treatment, [place] [address] [place] [phone] Amparo, Chair 5 Hem Onc [facility] 200 [facility] [place] [address] Arrived 02/25/2024 7:45 AM EST Imaging Radiology [address], [place] 132 [facility] [place] [address] 03/04/2024 10:00 AM EST Laboratory Laboratory [address] [place] [phone] [place] [address] 03/05/2024 8:30 AM EST Office Visit Hematology/Oncology [facility] [address] [place] [phone] Yogi Muñoz MD [address] [place] [address] 03/05/2024 9:00 AM EST Hem/Onc Treatment Hematology/Oncology Treatment, [place] [address] [place] [address] Amparo, Chair 3 Hem Onc [address] [place] [address] 07/21/2024 8:30 AM EDT Office Visit Family Medicine [address] [phone] [place] [address] Pending Results Name Type Priority Associated Diagnoses Date /Time CBC WITH WBC DIFFERENTIAL Lab STAT Malignant neoplasm of upper lobe of right lung (HCC) Metastasis to mediastinal lymph node (HCC) 02/21/2024 11:00 AM EST COMPREHENSIVE METABOLIC PANEL Lab STAT Malignant neoplasm of upper lobe of right lung (HCC) Metastasis to mediastinal lymph node (HCC) 02/21/2024 11:00 AM EST TSH WITH FREE T4 IF INDICATED Lab STAT Malignant neoplasm of upper lobe of right lung (HCC) Metastasis to mediastinal lymph node (HCC) Bipolar disorder, unspecified (HCC) 02/21/2024 11:00 AM EST CBC Lab STAT Malignant neoplasm of upper lobe of right lung (HCC) Metastasis to mediastinal lymph node (HCC) 02/21/2024 11:00 AM EST DIFFERENTIAL, AUTOMATED Lab STAT Malignant neoplasm of upper lobe of right lung (HCC) Metastasis to mediastinal lymph node (HCC) 02/21/2024 11:00 AM EST Health Maintenance Due Date Last [...] 06/25/2022 Colorectal Cancer Screening 07/05/2025 Diabetes Screening 02/12/2027 02/13/2024, 1 03/25/2023, 01/13/2024, Additional history exists Lipid Panel 11/04/2028 11/05/2023, 03/22, 08/29/2022, Additional history exists Alpha-1 Antitrypsin Completed 11/05/2023 HPV (Gardasil) Vaccine Aged Out No lo nger eligible based on patient's age to complete this topic MENINGOCOCCAL (MENACTRA/MENVEO) Aged Out No longer eligible based on patient's age to complete this topic documented as of this encounter Medical Devices Implanted Type Area Draw Bench Operator Helper Device Identifier Shelf Expiration Date Model / Serial / Lot Device Perm Cntrl [id number] - [id number] Implanted:Qty: 2 on 09/30/2014 by Julio Ramírez MD at OR [facility] N/A: Fallopian Tube [employer] 03/02/2016 [id number] / / [id number] Description:Bilateral tubal documented as of this encounter Visit Diagnoses Diagnosis Malignant neoplasm of upper lobe of right lung (HCC) Malignant neoplasm of upper lobe, bronchus or lung 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
--- OUTSIDE RECORDS SUMMARY | 2024-04-10 00:54 | External Medical Summary | Summary of Care ---
Author Name Unknown Organization [facility] Address [address] [place] [address] Phone [phone] Care Team Providers Care Plant Nursery Worker Name Role Phone Renetta Naidu DO Primary [...] Metastasis to mediastinal lymph node (HCC) Procedures WA CARBOPLATIN INJECTION WA INJ. PEMETREXED NOS 10MG [place] FOSAPREPITANT INJECTION [place] INJ PEMBROLIZUMAB Yogi Muñoz MD [address] [place] [address] [place] [address] Phone: tel: fax: Hematology/Oncology Treatment, [address] [address] Phone: tel: fax: Referral ID Status Reason Start Date Expiration Date V isits Requested Visits Authorized [id number] Authorized 12/06/2023 02/17/[phone] Encounter Details Date Type Department Care Team (Latest Contact Info) Description 01/24/2024 9:30 AM EST Hem/Onc Treatment Hematology/Oncolog y Treatment, [address] [address] Amparo, Chair 8 Hem Onc [place] 200 [facility], [place] [address] Encounter for antineoplastic chemotherapy*; [...] Description 03/03/2024 4:00 PM EST Imaging Radiology [address], [place] 132 [facility] [place] [address] 03/04/2024 10:00 AM EST Laboratory Laboratory [address] [place] [phone] [place] [address] 03/05/2024 8:30 AM EST Office Visit Hematology/Oncology [facility] 200 [facility] [place] [phone] Yogi Muñoz MD 200 [facility] [place] [address] 03/05/2024 9:00 AM EST Hem/Onc Treatment Hematology/Oncology Treatment, [place] 200 [facility] [place] [phone] Amparo, Chair 3 Hem Onc [address] [place] [address] 07/21/2024 8:30 AM EDT Office Visit Family Medicine [address] [place] [phone] [address] [place] [address] Health Maintenance Due Date Last Done Comments [...] this encounter Medical Devices Implanted Type Area Battery Technician Device Identifier Shelf Expiration Date Model / Serial / Lot Device Perm Cntrl [id number] - [id number] Implanted:Qty: 2 on 09/30/2014 by Julio Ramírez MD at OR [facility] N/A: Fallopian Tube [employer] 03/02/2016 [id number] / / [id number] Description:Bilateral tubal documented as of this encounter [...] Upper documented in this encounter Care Teams Plant Nursery Worker Relationship Specialty Start Date End Date Renetta Naidu DO [address] [place] [address] [place] [address] PCP - General Internal Medicine 11/12/23 documented as of this encounter
--- OUTSIDE RECORDS SUMMARY | 2024-04-10 00:54 | External Medical Summary ---
Author Name Unknown Address Unknown Organization K09:[facility] [address] [place] [address] Laboratory Report Ordering Provider Test Date Status JARED MAGAÑA 02/21/2024 11:00:57 Final Observation Date Value Abnormality Reference (Units ) Status Nucleated erythrocytes/100 leukocytes [Ratio] in Blood by Automated count 02/21/2024 11:00:57 Final Variant lymphocytes [Presence] in Blood by Light microscopy 02/21/2024 11:00:57 Present Abnormal None Seen Final Performing Location [facility] [place] [address]
--- OUTSIDE RECORDS SUMMARY | 2024-04-10 00:54 | External Medical Summary ---
Author Name Unknown Address Unknown Organization K09:[facility] [place] [address] Laboratory Report Ordering Provider Test Date Status JARED MAGAÑA 02/21/2024 11:00:57 Final Observation Date Value Abnormality Reference (Units ) Status SYNC LEUKOCYTES IN BLOOD BY AUTOMATED COUNT 02/21/2024 11:00:57 8.74 4.00-10.80 (K/uL) Final Segs 02/21/2024 11:00:57 79.5 Above high normal 40.0-75.0 (%) Final Lymphs % 02/21/2024 11:00:57 12.9 Below low normal 18.0-42.0 (%) Final Monos 02/21/2024 11:00:57 7.3 1.0-11.0 (%) Final Eosinophils 02/21/2024 11:00:57 0.1 0.0-6.0 (%) Final Basos 02/21/2024 11:00:57 0.2 0.0-2.0 (%) Final Absolute Segs 02/21/2024 11:00:57 6.94 1.80-7.70 (K/uL) Final Lymphs, absolute 02/21/2024 11:00:57 1.13 1.00-4.80 (K/ul) Final Monos, Abs 02/21/2024 11:00:57 0.64 0.00-1.10 (K/uL) Final Eos, Abs 02/21/2024 11:00:57 0.01 0.00-0.70 (K/uL) Final Basos, Abs 02/21/2024 11:00:57 0.02 0.00-0.20 (K/uL) Final Performing Location [facility] [place] [address]
--- OUTSIDE RECORDS SUMMARY | 2024-04-10 00:54 | External Medical Summary | Summary of Care ---
Author Name Unknown Organization [facility] Address [address] [place] [address] Phone [phone] Care Team Providers Care Television Specialist Name Role Phone Renetta Naidu DO Primary Care Provider [phone] Reason for Visit * Reason Comments Chemotherapy [...] INJECTION [place] INJ PEMBROLIZUMAB Yogi Muñoz MD [address] [place] [address] [place] [address] Phone: tel: fax: Hematology/Oncology Treatment, [address] [address] Phone: tel: fax: Referral ID Status Reason Start Date Expiration Date V isits Requested Visits Authorized [id number] Authorized 12/06/2023 02/17/[phone] Encounter Details Date Type Department Care Team (Latest Contact Info) Description 01/24/2024 9:30 AM EST Hem/Onc Treatment Hematology/Oncolog y Treatment, [address] [address] Amparo, Chair 8 Hem Onc [address]ery 200 [facility], [place] [address] Encounter for antineoplastic [...] Description 03/03/2024 4:00 PM EST Imaging Radiology [address], [place] 132 [facility] [place] [address] 03/04/2024 10:00 AM EST Laboratory Laboratory [address] [place] [phone] [place] [address] 03/05/2024 8:30 AM EST Office Visit Hematology/Oncology [facility] 200 [facility] [place] [phone] Yogi Muñoz MD 200 [facility] [place] [address] 03/05/2024 9:00 AM EST Hem/Onc Treatment Hematology/Oncology Treatment, [place] 200 [facility] [place] [phone] Amparo, Chair 3 Hem Onc [address] [place] [address] 07/21/2024 8:30 AM EDT Office Visit Family Medicine [address] [place] [phone] Renetta [address] [place] [address] Health Maintenance Due Date Last Done Comments [...] this encounter Medical Devices Implanted Type Area Box Blank Machine Feeder Device Identifier Shelf Expiration Date Model / Serial / Lot Device Perm Cntrl [id number] - [id number] Implanted:Qty: 2 on 09/30/2014 by Julio Ramírez MD at OR [facility] N/A: Fallopian Tube [employer] 03/02/2016 [id number] / / [id number] Description:Bilateral tubal documented as of this encounter [...] Upper documented in this encounter Care Teams Television Specialist Relationship Specialty Start Date End Date Renetta Naidu DO [address] [place] [address] [place] [address] PCP - General Internal Medicine 11/12/23 documented as of this encounter
--- OUTSIDE RECORDS SUMMARY | 2024-04-10 00:54 | External Medical Summary | Summary of Care ---
Author Name Unknown Organization [facility] Address [address] [place] [address] Phone [phone] Care Team Providers Care Ultrasonographer Name Role Phone Renetta Naidu DO Primary [...] INJECTION [place] INJ PEMBROLIZUMAB Yogi Muñoz MD [address] [place] [address] [place] [address] Phone: tel: fax: Hematology/Oncology Treatment, [address] [address] Phone: tel: fax: Referral ID Status Reason Start Date Expiration Date V isits Requested Visits Authorized [id number] Authorized 12/06/2023 02/17/2099 999 999 Encounter Details Date Type Department Care Team (Latest Contact Info) Description 01/24/2024 9:30 AM EST Hem/Onc Treatment Hematology/Oncolog y Treatment, [address] [address] Amparo, Chair 8 Hem Onc Scenery 200 [facility], [place] [address] Encounter for antineoplastic chemotherapy*; [...] Description 03/03/2024 4:00 PM EST Imaging Radiology [address], [place] 132 [facility] [place] [address] 03/04/2024 10:00 AM EST Laboratory Laboratory [address] [place] [phone] [place] [address] 03/05/2024 8:30 AM EST Office Visit Hematology/Oncology [facility] 200 [facility] [place] [phone] Yogi Muñoz MD 200 [facility] [place] [address] 03/05/2024 9:00 AM EST Hem/Onc Treatment Hematology/Oncology Treatment, [place] 200 [facility] [place] [phone] Amparo, Chair 3 Hem Onc [address] [place] [address] 07/21/2024 8:30 AM EDT Office Visit Family Medicine [address] [place] [phone] Renetta [address] [place] [address] Health Maintenance Due Date Last Done Comments [...] this encounter Medical Devices Implanted Type Area Machine Burrer Device Identifier Shelf Expiration Date Model / Serial / Lot Device Perm Cntrl [id number] - [id number] Implanted:Qty: 2 on 09/30/2014 by Julio Ramírez MD at OR [facility] N/A: Fallopian Tube [employer] 03/02/2016 [id number] / / [id number] Description:Bilateral tubal documented as of this encounter [...] Upper documented in this encounter Care Teams Ultrasonographer Relationship Specialty Start Date End Date Renetta Naidu DO [address] [place] [address] [place] [address] PCP - General Internal Medicine 11/12/23 documented as of this encounter
--- OUTSIDE RECORDS SUMMARY | 2024-04-10 00:54 | External Medical Summary | Summary of Care ---
Author Name Unknown Organization [facility] Address [address] [place] [address] Phone [phone] Care Team Providers Care Telephone Service Representative Name Role Phone Renetta Naidu DO Primary [...] INJECTION [place] INJ PEMBROLIZUMAB Yogi Muñoz MD [address] [place] [address] [place] [address] Phone: tel: fax: Hematology/Oncology Treatment, [address] [address] Phone: tel: fax: Referral ID Status Reason Start Date Expiration Date V isits Requested Visits Authorized [id number] Authorized 12/06/2023 02/17/[phone] Encounter Details Date Type Department Care Team (Latest Contact Info) Description 01/24/2024 9:30 AM EST Hem/Onc Treatment Hematology/Oncolog y Treatment, [address] [address] Amparo, Chair 8 Hem Onc [...] Description 03/03/2024 4:00 PM EST Imaging Radiology [address], [place] 132 [facility] [place] [address] 03/04/2024 10:00 AM EST Laboratory Laboratory [address] [place] [phone] [place] [address] 03/05/2024 8:30 AM EST Office Visit Hematology/Oncology [facility] 200 [facility] [phone] Yogi Muñoz MD 200 [facility] [place] [address] 03/05/2024 9:00 AM EST Hem/Onc Treatment Hematology/Oncology Treatment, [place] 200 [facility] [place] [phone] Amparo, Chair 3 Hem Onc [address] [place] [address] 07/21/2024 8:30 AM EDT Office Visit Family Medicine [address] [place] [phone] Renetta Naidu[address] [place] [address] Health Maintenance Due Date Last Done Comments [...] this encounter Medical Devices Implanted Type Area Marketing Editor Device Identifier Shelf Expiration Date Model / Serial / Lot Device Perm Cntrl [id number] - [id number] Implanted:Qty: 2 on 09/30/2014 by Julio Ramírez MD at [facility] N/A: Fallopian Tube [employer] 03/02/2016 [id number] / / [id number] Description:Bilateral tubal documented as of this encounter [...] Upper documented in this encounter Care Teams Telephone Service Representative Relationship Specialty Start Date End Date Renetta Naidu DO [address] [place] [address] [place] [address] PCP - General Internal Medicine 11/12/23 documented as of this encounter
--- OUTSIDE RECORDS SUMMARY | 2024-04-10 00:54 | External Medical Summary | Summary of Care ---
Author Name Unknown Organization [facility] [address] [facility] [address] Phone [phone] Care Team Providers Care Clock Mechanic Name Role Phone NaiduRenetta DO Primary Care Provider Reason for Referral * Precert (Within 24 hrs (call dept; emergent)) - Authorized Specialty Diagnoses / Procedures Referred By Contac t Referred To Contact Radiology Diagnoses Malignant neoplasm of upper lobe of right lung (HCC) Metastasis to mediastinal lymph node (HCC) Drug-induced pneumonitis Procedures CT CHEST W CONTRAST Consuelo Jarvis CRNP [address] [place] [address] Phone: tel: fax: Referral ID Status Reason Start Date Expiration Date V isits Requested Visits Authorized [id number] Authorized 02/27/2024 999 999 Reason for Visit * Reason Onset Date Comments Test Results Imaging Study 02/27/2024 Encounter Details Date Type Department Care Team (Late st Contact Info) Description 02/27/2024 Telephone Hematology/Oncology [place]aeed [address] [place] [address] Consuelo Jarvis CRNP [address] [place] [address] Test Results Imaging Study [...] Scheduling: - please have CT images from [facility] 02/07/24 pushed to [employer] - please schedule CT prior to 03/05 [...] images from CT chest completed 02/07/24 at [facility] be pushed into our system. Called patient and reviewed above. Verbalized understanding. documented in this encounter Plan of Treatment Upcoming Encounters Date Type Department Care Team (Late st Contact Info) Description 03/04/2024 10:00 AM EST Laboratory Laboratory [address] [place] [phone] [place], Lab [address] [place] [address] 03/05/2024 8:30 AM EST Office Visit Hematology/Oncology [address] [place] [phone] Yogi Muñoz MD 200 [facility] [place] [address] 03/05/2024 9:00 AM EST Hem/Onc Treatment Hematology/Oncology Treatment, [address] [place] [phone] Amparo, Chair 3 Hem On[address] [place] [address] 07/21/2024 8:30 AM EDT Office Visit Family Medicine [address] [place] [phone] [place] [address] Scheduled Orders Name Type Priority Associated Diagnoses [...] this encounter Medical Devices Implanted Type Area Volumetric Weigher Device Identifier Shelf Expiration Date Model / Serial / Lot Device Perm Cntrl [id number] - [id number] Implanted:Qty: 2 on 09/30/2014 by Julio Ramírez MD at OR [facility] N/A: Fallopian Tube [employer] 03/02/2016 [id number] / / [id number] Description:Bilateral tubal documented as of this encounter Visit Diagnoses Diagnosis Malignant neoplasm of upper lobe of right lung (HCC)- Primary Malignant neoplasm of upper lobe, bronchus or lung 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
--- OUTSIDE RECORDS SUMMARY | 2024-04-10 00:54 | External Medical Summary | Summary of Care ---
Author Name Unknown Organization [facility] Address [address] [facility] [address] Phone [phone] Care Team Providers Care Oven Stripper Name Role Phone NaiduRenetta DO Primary Care Provider Reason for Referral * Precert (Within 24 hrs (call dept; emergent)) - Authorized Specialty Diagnoses / Procedures Referred By Contac t Referred To Contact Radiology Diagnoses Malignant neoplasm of upper lobe of right lung (HCC) Metastasis to mediastinal lymph node (HCC) Drug-induced pneumonitis Procedures CT CHEST W CONTRAST Consuelo Jarvis CRNP [address] [place] [address] Phone: tel: fax: Referral ID Status Reason Start Date Expiration Date V isits Requested Visits Authorized [id number] Authorized 02/27/2024 999 999 Reason for Visit * Reason Onset Date Comments Test Results Imaging Study 02/27/2024 Encounter Details Date Type Department Care Team (Late st Contact Info) Description 02/27/2024 Telephone Hematology/Oncology [place] [address] [place] [address] Consuelo Jarvis CRNP [address] [place] [address] Test Results Imaging Study Allergies Active Allergy Reactions Criticality Noted Date Comments Levofloxacin Rash 02/17/2024 documented as of this encounter (statuses as of 02/27/2024) Medications lamoTRIgine 100 MG Oral Tablet (LaMICtal) [...] as of this encounter (statuses as of 02/27/2024) Active Problems Problem Noted Date Diagnosed Date [...] as of this encounter (statuses as of 02/27/2024) Resolved Problems Problem Noted Date Diagnosed Date Resolved Date Mass of right lung 11/28/2023 Restrictive lung disease 06/15/2022 Depression 05/02/2012 06/15/2022 Generalized anxiety disorder 01/14/2012 06/15/2022 documented as of this encounter (statuses as of 02/27/2024) Immunizations Name Administration Dates Next Due Pneumococcal [...] encounter Miscellaneous Notes * Telephone Encounter - Consuelo Jarvis CRNP [...] images from CT chest completed 02/07/24 at [facility] be pushed into our system. Called patient and reviewed above. Verbalized understanding. documented in this encounter Plan of Treatment Upcoming Encounters Date Type Department Care Team (Late st Contact Info) Description 03/04/2024 10:00 AM EST Laboratory Laboratory [address] [place] [phone] [place] [address] 03/05/2024 8:30 AM EST Office Visit Hematology/Oncology [address] [place] [phone] Yogi Muñoz MD 200 [facility] [place] [address] 03/05/2024 9:00 AM EST Hem/Onc Treatment Hematology/Oncology Treatment, [address] [place] [phone] Amparo, Chair 3 Hem Onc [address] [place] [address] 07/21/2024 8:30 AM EDT Office Visit Family Medicine [address] [place] [phone] [address] [place] [address] Scheduled Orders Name Type Priority Associated Diagnoses [...] this encounter Medical Devices Implanted Type Area Distance Learning Unit Leader Device Identifier Shelf Expiration Date Model / Serial / Lot Device Perm Cntrl [id number] - [id number] Implanted:Qty: 2 on 09/30/2014 by Julio Ramírez MD at OR [facility] N/A: Fallopian Tube [employer] 03/02/2016 [id number] / / [id number] Description:Bilateral tubal documented as of this encounter Visit Diagnoses Diagnosis Malignant neoplasm of upper lobe of right lung (HCC)- Primary Malignant neoplasm of upper lobe, bronchus or lung 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
--- OUTSIDE RECORDS SUMMARY | 2024-04-10 00:54 | External Medical Summary | Summary of Care ---
Author Name Unknown Organization [facility] Address [address] [place] [address] Phone [phone] Care Team Providers Care Sawmill Relief Worker Name Role Phone Renetta Naidu DO Primary Care Provider [phone] Reason for Visit * Reason Comments Chemotherapy Day 1, cycle 3 Keytr uda, alimta, carboplatin Medication Administration B 12 * Episode Based Medications (Routine) - Authorized Specialty Diagnoses / Procedures Referred By Contcathy t Referred To Contact Diagnoses Encounter for antineoplastic chemotherapy Malignant neoplasm of upper lobe of right lung (HCC) Metastasis to mediastinal lymph node (HCC) Procedures OK CARBOPLATIN INJECTION OK INJ. PEMETREXED NOS 10MG OK FOSAPREPITANT INJECTION OK INJ PEMBROLIZUMAB Yogi Muñoz MD [address] [place] [address] [place] [address] Phone: tel: fax: Hematology/Oncology Treatment, [address] [address] Phone: tel: fax: Referral ID Status Reason Start Date Expiration Date V isits Requested Visits Authorized [id number] Authorized 12/06/2023 02/17/2099 999 999 Encounter Details Date Type Department Care Team (Latest Contact Info) Description 01/24/2024 9:30 AM EST Hem/Onc Treatment Hematology/Oncolog y Treatment, [address] [phone] Amparo, Chair 8 Hem Onc Scenery 200 [facility], [place] [address] Encounter for antineoplastic chemotherapy*; [...] Description 03/03/2024 4:00 PM EST Imaging Radiology [address], [place] 132 [facility] [place] [address] 03/04/2024 10:00 AM EST Laboratory Laboratory [address] [place] [phone] [place] [address] 03/05/2024 8:30 AM EST Office Visit Hematology/Oncology [facility] 200 [facility] [place] [phone] Yogi Muñoz MD 200 [facility] [place] [address] 03/05/2024 9:00 AM EST Hem/Onc Treatment Hematology/Oncology Treatment, [place] 200 [facility] [place] [phone] Amparo, Chair 3 Hem Onc [address] [place] [address] 07/21/2024 8:30 AM EDT Office Visit Family Medicine [address] [place] [phone] Renetta Naid[address] [place] [address] Health Maintenance Due Date Last Done Comments [...] this encounter Medical Devices Implanted Type Area Hogshead Roller Device Identifier Shelf Expiration Date Model / Serial / Lot Device Perm Cntrl [id number] - [id number] Implanted:Qty: 2 on 09/30/2014 by Julio Ramírez MD at OR [facility] N/A: Fallopian Tube [employer] 03/02/2016 [id number] / / [id number] Description:Bilateral tubal documented as of this encounter [...] Upper documented in this encounter Care Teams Sawmill Relief Worker Relationship Specialty Start Date End Date Renetta Naidu DO [address] [place] [address] [place] [address] PCP - General Internal Medicine 11/12/23 documented as of this encounter
--- OUTSIDE RECORDS SUMMARY | 2024-04-10 00:54 | External Medical Summary | Summary of Care ---
Author Name Unknown Organization [facility] Address [address] [facility] [address] Phone [phone] Care Team Providers Care Garment Patternmaker Name Role Phone NaiduRenetta DO Primary Care Provider Reason for Visit * Reason Comments Chemotherapy Chemo/recheck Encounter Details Date Type Department Care Team (Late st Contact Info) Description 02/21/2024 11:00 AM EST Office Visit Hematology/Oncology [facility] [place] 200 [place] [phone] Consuelo Jarvis CRNP 400 [facility] [place] [address] Malignant neoplasm of upper lobe of right lung (HCC)*; Metastasis to mediastinal lymph node (HCC); 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 (6 times a day) for 7 days. 10 mL 4 02/23/19 25 Active predniSONE 10 MG Oral Tablet [...] Sign Reading Time Taken Comments Blood Pressure 115/75 02/21/2024 11:11 AM EST Pulse 109 02/21/2024 11:11 AM EST Temperature 36.2 C (97.2 F) 02/21/2024 1 1:11 AM EST Respiratory Rate - - Oxygen Saturation 93% 02/21/2024 11: 11 AM EST Inhaled Oxygen Concentration - - Weight 68.4 kg (150 lb 11.2 oz) 025 11:11 AM EST Height - - Body Mass Index 28.47 12/06/2023 12:06 PM EDT documented in this encounter Progress Notes * Consuelo Jarvis CRNP - 02/21/2024 11:00 AM EST Images from the original note were not included. Hematology/Oncology Outpatient Clinic [place] [address] [address] Name: Sarah Ponce Date: 02/21/2024 CHIEF COMPLAINT: Sarah Ponce is a 48 [...] Lybalvi Interval History: Patient was hospitalized at [facility] 02/07/24 - 02/09/24. HISTORY OF PRESENT ILLNESS: Sarah Ponce is a 48 year old female with a history as outlined above. Currently here for f/u visit today and consideration for C4D1 of treatment. Finished antibiotics earlier this week. No improvement in SOB noted. Walks about 15 feet and experiences significant SOB and wheezing. Takes about 3 min to recover. Was coughing prior to antibiotics but this is now improved. Was not discharged on oxygen. Denies fevers. Has been a little more itchy lately but denies rash. Denies pain. Is feeling a little more weak in [...] performed by Shiv Mann MD at OR [facility] HYSTEROSCOPY W/FALLOPIAN IMPLANTS N/A 09/30/2014 HYSTEROSCOPY SURGICAL BILATERAL FALLOPIAN TUBE performed by Julio Ramírez MD at OR [facility] INFORMATION cyst removal on chest. REMOVE [...] Ellipta 200-62.5-25 MCG/ACT Aerosol Powder Breath Activated (Jrsufkcfszi-Mwytnyngqrvg-Wapizowfir) Inhale 1 Puff by mouth in the [...] tablet daily until gone 6 Tablet 0 Polymyxin B-Trimethoprim 76362-1.1 UNIT/ML-% Ophthalmic Solution Instill 1 Drop into both eyes every 3 hours while awake for 7 days. (6 times a day) for 7 days. 10 mL 0 Current Facility-Administered Medications Medication Dose Route Frequency Provider Last Rate Last Admin Albuterol Sulfate (Proventil) (5 MG/ML) 0.5% *conc* inhalation solution 2.5 mg 2.5 mg Nebulizer PRN Albuterol Sulfate (Proventil) (2.5 MG/3ML) 0.083% inhalation solution 2.5 mg 2.5 mg Nebulizer PRN 2.5 mg at 11/20/23 1418 REVIEW OF SYSTEMS: See HPI - otherwise negative OBJECTIVE: Filed Vitals: 02/21/24 1111 BP: 115/75 Pulse: 109 Temp: 36.2 C (97.2 F) TempSrc: Tympanic SpO2: 93% Weight: 68.4 kg (150 lb 11.2 oz) Wt Readings from Last 5 Encounters: 02/21/24 68.4 kg (150 lb 11.2 oz) 02/17/24 68.2 kg (150 lb 6.4 oz) 01/24/24 66.5 kg (146 lb 8 oz) 01/03/24 64.8 kg (142 lb 12.8 oz) 12/13/23 65 kg (143 lb 3.2 oz) PHYSICAL EXAM: ECOG: Performance Status 1 = 80-90% Symptoms but nearly ambulatory General Appearance: No acute distress HEENT: Normal - No oral or pharyngeal masses, ulceration or thrush noted Lymph Nodes: Normal - No palpable lymph nodes in the neck or supraclavicular areas Lungs/Thorax: +inspiratory wheezing throughout all lung child Heart: Normal - Regular rhythm, +tachycardia, no appreciable murmurs Pulses/Extremities: Normal - 2+ throughout and symmetrical, no edema Neurologic: Normal - Grossly intact LABS: Results for orders placed or performed in visit on 02/13/24 COMPREHENSIVE METABOLIC PANEL Result Value Ref Range BUN 10 6 - 20 mg/dL CREATININE 1.0 0.5 - 1.0 mg/dL EGFR 68 >=60 mL/min SODIUM 139 135 - 146 mmol/L POTASSIUM 3.9 3.5 - 5.1 mmol/L CHLORIDE 100 98 - 107 mmol/L CO2 27 22 - 32 mmol/L ANION GAP 12 7 - 15 mmol/L GLUCOSE 128 (H) 70 - 120 mg/dL Albumin 2.7 (L) 3.8 - 5.0 g/dL AST 53 (H) 10 - 35 U/L Alkaline Phosphatase 119 35 - 130 U/L Bilirubin, Total 0.4 <=1.2 mg/dL CALCIUM 8.6 8.4 - 10.2 mg/dL Protein 5.8 (L) 6.0 - 8.3 g/dL ALT 28 10 - 35 U/L TSH WITH FREE T4 IF INDICATED Result Value Ref Range TSH 4.30 (H) 0.27 - 4.20 uIU/mL CBC Result Value Ref Range WBC 7.11 4.00 - 10.80 K/uL RBC 2.93 3.85 - 5.15 M/uL HGB 9.4 (L) 12.0 - 15.3 g/dL HCT 30.2 (L) 36.0 - 45.2 % MCV 103.1 81.5 - 97.5 fL MCH 32.1 27.0 - 34.0 pg MCHC 31.1 32.0 - 36.0 g/dL RDW 19.6 11.5 - 15.5 % PLT 247 140 - 400 K/uL MPV 10.7 6.6 - 11.1 fL nRBCs 0 <=0 /100 WBCs DIFFERENTIAL, AUTOMATED Result Value Ref Range WBC 7.11 4.00 - 10.80 K/uL Neutrophils % 63.7 40.0 - 75.0 % Lymphocytes % 16.5 (L) 18.0 - 42.0 % Monocytes % 14.9 (H) 1.0 - 11.0 % Eosinophils % 3.0 0.0 - 6.0 % Basophils % 0.6 0.0 - 2.0 % Immature Granulocytes % 1.3 0.0 - 2.0 % Absolute Neutrophils 4.54 1.80 - 7.70 K/uL Absolute Lymphocytes 1.17 1.00 - 4.80 K/ul Absolute Monocytes 1.06 0.00 - 1.10 K/uL Absolute Eosinophils 0.21 0.00 - 0.70 K/uL Absolute Basophils 0.04 0.00 - 0.20 K/uL Absolute Immature Granulocytes 0.09 0.00 - 0.20 K/uL T4, FREE Result Value Ref Range T4, Free 1.5 0.9 - 1.7 ng/dL IMPRESSION/PLAN: Non-small cell lung cancer, 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 Presents today for consideration for C4D1 of treatment. Patient was hospitalized at [facility] 02/07/24 - 02/09/24. Presented with severe SOB. Treated for bilateral pneumonia with IV antibiotics. Was then discharged and completed a course of Augmentin and Azithromycin earlier this week. Also received 2 units of PRBCs during admission. Has noticed no clinical improvement in SOB or wheezing. Lab results reviewed: CMP unremarkable Hgb stable at 9.[address] Yogi Muñoz: as patient has noted no clinical improvement since being treated for suspected pneumonia and anemia currently improved; will initiate treatment today for immunotherapy induced pneumonitis. Prescription sent for Prednisone 60 mg daily to start today. Patient already on PPI. Will likely need to initiate Bactrim prophylaxis in the near future. Encouraged patient to fiber picker home pulse oximeter today. Will cancel PET/CT scheduled for next week and will plan to complete this in approximately 3-4 weeks from today. Will hold on any further chemotherapy until results of restaging scans are known. Immunotherapy will be permanently discontinued in light of pneumonitis. RTC in one weeks with ut RTC as scheduled with physician in two weeks JUAN Gray documented in this encounter Nursing Notes * Krystal Carter CMA - 02/21/2024 11:11 AM EST Patient identifed by name and [...] it for you? ALREADY ACTIVE Filed Vitals: 02/21/24 1111 BP: 115/75 Pulse: 109 Temp: 36.2 C (97.2 F) TempSrc: Tympanic SpO2: 93% Weight: 68.4 kg (150 lb 11.2 oz) Patient was instructed to [...] Department Care Team (Latest Contact Info) Description 02/21/2024 3:30 PM EST Laboratory Laboratory [facility] Amparo [place] 200 [facility] [place] [phone] [address] [place] [address] Malignant neoplasm of upper lobe of right lung (HCC); Metastasis to mediastinal lymph node (HCC); Bipolar disorder, unspecified (HCC) 02/27/2024 11:00 AM EST Office Visit Hematology/Oncology [facility] [place] Mely Christensen 200 [facility] [place] [phone] Consuelo Jarvis CRNP [address] [place] [address] [place] [address] 03/04/2024 10:00 AM EST Laboratory Laboratory [address] [place] [phone] [address] [place] [address] [place] [address] 03/05/2024 8:30 AM EST Office Visit Hematology/Oncology [facility] Amparo [place] 200 [facility] [place] [phone] Yogi Muñoz MD [address] [facility] [place] [address] 03/05/2024 9:00 AM EST Hem/Onc Treatment Hematology/Oncology Treatment, [place] 200 [facility], [place] [phone] [place], Chair 3 Hem Onc [facility] 200 [facility] [place], [place] [address] 07/21/2024 8:30 AM EDT Office Visit Family Medicine [address] [place] [phone] [place] [address] Health Maintenance Due Date Last Done Comments [...] this encounter Medical Devices Implanted Type Area Laser Beam Cutter Device Identifier Shelf Expiration Date Model / Serial / Lot Device Perm Cntr [id number] - [id number] Implanted:Qty: 2 on 09/30/2014 by Julio Ramírez MD at OR [facility] N/A: Fallopian Tube [employer] 03/02/2016 [id number] / / [id number] Description:Bilateral tubal documented as of this encounter Visit Diagnoses Diagnosis Malignant neoplasm of upper lobe of right lung (HCC)- Primary Malignant neoplasm of upper lobe, bronchus or lung 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) Secondary malignant neoplasm of liver Drug-induced pneumonitis Pneumonia, organism unspecified Anemia due to antineoplastic chemotherapy Antineoplastic chemotherapy induced anemia Malignant neoplasm of upper lobe of right lung (HCC) Malignant neoplasm of upper lobe, bronchus or lung 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
--- OUTSIDE RECORDS SUMMARY | 2024-04-10 00:55 | External Medical Summary ---
Author Name Unknown Address Unknown Organization [facility] [address] [place] [address] Laboratory Report Ordering Provider Test Date Status JARED MAGAÑA 02/21/2024 11:00:57 Final Observation Date Value Abnormality Reference (Units ) Status BUN 02/21/2024 11:00:57 11 6-20 (mg/dL) Final Creatinine 02/21/2024 11:00:57 0.8 0.5-1.0 (mg/dL) Final Glomerular filtration rate/1.73 sq M.predicted [Volume Rate/Area] in Serum, Plasma or Blood by Creatinine-based formula (CKD-EPI) 02/21/2024 11:00:57 >90 >=60 (mL/min) Final eGFR is calculated based on the CKD-EPI 2020 equation. Sodium 02/21/2024 11:00:57 141 135-146 (m mol/L) Final Potassium 02/21/2024 11:00:57 4.2 3.5-5.1 (m mol/L) Final Cl 02/21/2024 11:00:57 104 98-107 (mm ol/L) Final CO2 02/21/2024 11:00:57 23 22-32 (mmo l/L) Final Anion gap 02/21/2024 11:00:57 14 7-15 (mmol /L) Final Glucose 02/21/2024 11:00:57 144 Above high normal 70 -120 (mg/dL) Final Albumin 02/21/2024 11:00:57 2.6 Below low normal 3.8 -5.0 (g/dL) Final AST (Aspartate aminotransferase) 02/21/2024 11:00:57 54 Above high normal 10-35 (U/L) Final Result may be falsely elevat ed due to hemolysis. Alk Phos 02/21/2024 11:00:57 130 35-130 (U/ L) Final Bilirubin, Total 02/21/2024 11:00:57 0.3 <=1 .2 (mg/dL) Final Calcium 02/21/2024 11:00:57 8.9 8.4-10.2 ( mg/dL) Final Protein 02/21/2024 11:00:57 6.6 6.0-8.3 (g /dL) Final ALT (Alanine aminotransferase) 02/21/2024 11:00:57 13 10-35 (U/L) Final Performing Location [facility] [address] [place] [address]
--- OUTSIDE RECORDS SUMMARY | 2024-04-10 00:55 | External Medical Summary ---
Author Name Unknown Address Unknown Organization [facility] [address] [place] [address] Laboratory Report Ordering Provider Test Date Status JARED MAGAÑA 02/21/2024 11:00:57 Final Observation Date Value Abnormality Reference (Units ) Status WBC, Total 02/21/2024 11:00:57 8.74 4.00-10.8 0 (K/uL) Final RBC 02/21/2024 11:00:57 2.93 3.85-5.15 (M/uL) Final Hemoglobin 02/21/2024 11:00:57 9.6 Below low normal 12 .0-15.3 (g/dL) Final HCT 02/21/2024 11:00:57 31.4 Below low normal 36. 0-45.2 (%) Final MCV 02/21/2024 11:00:57 107.2 81.5-97.5 (fL) Final MCH 02/21/2024 11:00:57 32.8 27.0-34.0 (pg) Final MCHC 02/21/2024 11:00:57 30.6 32.0-36.0 (g/dL) Final RDW 02/21/2024 11:00:57 22.8 11.5-15.5 (%) Final Platelets 02/21/2024 11:00:57 222 140-400 (K /uL) Final MPV 02/21/2024 11:00:57 10.1 6.6-11.1 ( fL) Final Performing Location [facility] [address] [place] [address]
--- OUTSIDE RECORDS SUMMARY | 2024-04-10 00:55 | External Medical Summary | Summary of Care ---
Author Name Unknown Organization [facility] Address [address] [facility] [place] [address] Phone [phone] Care Team Providers Care Newspaper Photographer Name Role Phone Renetta Naidu DO Primary Care Provider Encounter Details Date Type Department Care Team (Late st Contact Info) Description 02/10/2024 Orders Only Hematology/Oncology Román Christensen [place] [facility] [place] [address] Dano Espinosa MD 200 [facility] [place] [phone] Allergies No known active allergiesdocumented as of this encounter (statuses as of 02/14/2024) Medications lamoTRIgine 100 MG Oral Tablet (LaMICtal) [...] IN THE MORNING 90 Tablet 4 Active dexAMETHasone 4 MG Oral Tablet [...] mouth in the morning. 90 Tablet 3 Active Hospital, Clinic, or Other Facility Administered [...] as of this encounter (statuses as of 02/14/2024) Active Problems Problem Noted Date Diagnosed Date [...] as of this encounter (statuses as of 02/14/2024) Resolved Problems Problem Noted Date Diagnosed Date Resolved Date Restrictive lung disease 06/15/2022 Depression 05/02/2012 06/15/2022 Generalized anxiety disorder 01/14/2012 06/15/2022 documented as of this encounter (statuses as of 02/14/2024) Immunizations Name Administration Dates Next Due Pneumococcal [...] Care Team (Late st Contact Info) Description 02/17/2024 11:50 AM EST Office Visit Family Medicine [address] [place] [phone] Renetta Naidu[address] [place] [address] 02/21/2024 8:30 AM EST Office Visit Hematology/Oncology [address] [place] [phone] Consuelo Jarvis CRNP [address] [place], [place] [address] [address] 02/21/2024 9:00 AM EST Hem/Onc Treatment [facility]ematology[facility], [place] [facility] [phone] Amparo, Chair 5 Hem Onc [address] [place] [address] 02/25/2024 7:45 AM EST Imaging Radiology [facility] 1st [facility], [place] 132 [facility] [place] [address] 03/04/2024 10:00 AM EST Laboratory Laboratory [address] [place] [address] [place] [address] 03/05/2024 8:30 AM EST Office Visit Hematology/Oncology [facility] [address] [place] [phone] Yogi Muñoz MD 200 [place] [address] 03/05/2024 9:00 AM EST [facility] [address] [facility] [phone] Amparo, Chair 3 Hem Onc [facility] [place] [address] 07/21/2024 8:30 AM EDT Office Visit Family Medicine [address] [address] Renetta Na[address] [place] [address] Health Maintenance Due Date Last Done Comments [...] encounter Medical Devices Implanted Type Area Senior Systems Administrator Device Identifier Shelf Expiration Date Model / Serial / Lot Device Perm Cntrl [id number] - [id number] Implanted:Qty: 2 on 09/30/2014 by Julio Ramíerz MD at OR [facility] N/A: Fallopian Tube [employer] 03/02/2016 [id number] / / [id number] Description:Bilateral tubal documented as of this encounter Care Teams Newspaper Photographer Relationship Specialty Start Date End Date Renetta Naidu DO [address] [place] [address] [place] [id number] PCP - General Internal Medicine 11/12/23 documented as of this encounter
--- OUTSIDE RECORDS SUMMARY | 2024-04-10 00:55 | External Medical Summary | Summary of Care ---
Author Name Unknown Organization [facility] Address [address] [place] [address] Phone [phone] Care Team Providers Care Public Utilities Sales Representative Name Role Phone Renetta Naidu DO Primary Care Provider [phone] Reason for Visit * Reason Onset Date Comments Med Request 02/13/2024 Encounter Details Date Type Department Care Team (Late st Contact Info) Description 02/13/2024 Telephone Family Medicine [address] [phone] Renetta Naidu [address] [place] [address] Med Request Allergies No known active allergiesdocumented as of this encounter (statuses as of 02/13/2024) Medications lamoTRIgine 100 MG Oral Tablet (LaMICtal) [...] the morning. 90 Tablet 3 4 Active Amoxicillin-Pot Clavulanate 875-125 MG Oral Tablet (Augmentin)Racquel cations:Pneumon ia due to infectious organism, unspecified laterality, unspecified part of lung Take 1 Tablet by mouth in the morning and 1 Tablet before bedtime. Do all this for 5 days. 10 Tablet 4 02/18/20 24 Active Azithromycin 250 MG Oral Tablet (Zithromax Z-Ayaz)Indicatio ns:Pneumonia due to infectious organism, unspecified laterality, unspecified part of lung Take two tablets by mouth on first day, then 1 tablet daily until gone 6 Tablet 4 Active Hospital, Clinic, or Other [...] as of this encounter (statuses as of 02/13/2024) Active Problems Problem Noted Date Diagnosed Date [...] as of this encounter (statuses as of 02/13/2024) Resolved Problems Problem Noted Date Diagnosed Date Resolved Date Restrictive lung disease 06/15/2022 Depression 05/02/2012 06/15/2022 Generalized anxiety disorder 01/14/2012 06/15/2022 documented as of this encounter (statuses as of 02/13/2024) Immunizations Name Administration Dates Next Due Pneumococcal [...] Telephone Encounter - Lanny Larios CMA - 02/13/2024 1:17 PM EST Patient aware of new meds. HD scheduled Saturday. * Telephone Encounter - Carlos Justin MD - 02/13/2024 1:10 PM EST CTA chest showed b/l finding therefore will do augmentin and zpak - 5 days course since pt was discharged on levaquin for 8 days Pt also needs a hospital follow up * Telephone Encounter - Lanny Larios CMA - 02/13/2024 12:44 PM EST [facility] for pneumonia. She only had one of levofloxacin. No ABX yesterday. * Telephone Encounter - Casi Alfredo OSA - 02/13/2024 12:02 PM EST Pt was given Levofloxacin while in the hospital. Medication caused Pt to develop a rash, so she discontinued use. Pt request a new antibiotic. * Telephone Encounter - Viviana Cain CPhT - 02/13/2024 11:57 AM EST Patient calling in regarding antibiotic. This was last prescribed by PCP office, transferring caller to Medication Refill Line for further assistance. Thank you, Viviana Cain CPhT [employer] [facility] ([facility] 02/13/2024,11:57 AM documented in this encounter Plan of Treatment Upcoming Encounters Date Type Department Care Team (Late st Contact Info) Description 02/17/2024 11:50 AM EST Office Visit Family Medicine [address] [place] [address] [place] [address] 02/21/2024 8:30 AM EST Office Visit Hematology/Oncology [facility] Amparo [address] [place] [address] [address] Consuelo Jarvis CRNP [address] [place] [address] [place] [address] 02/21/2024 9:00 AM EST Hem/Onc Treatment Hematology/Oncology Treatment, [address] [address] Amparo, Chair 5 Hem Onc [place] 200 [facility] [place] [address] 02/25/2024 7:45 AM EST Imaging Radiology [facility] [address] [facility] [place] [facility] [place] [address] 03/04/2024 10:00 AM EST Laboratory Laboratory [address] [place] [phone] [place], Lab [address] [place] [address] 03/05/2024 8:30 AM EST Office Visit Hematology/Oncology [facility] [address] [place] [phone] Yogi Muñoz MD [address] [place] [address] 03/05/2024 9:00 AM EST Hem/Onc Treatment Hematology/Oncology Treatment, [place] [address] [facility] [phone] Amparo, Chair 3 Hem Onc [facility] 200 [facility] [place] [address] 07/21/2024 8:30 AM EDT Office Visit Family Medicine [address] [place] [phone] Renetta Naidu[address] [place] [address] Health Maintenance Due Date Last Done Comments [...] this encounter Medical Devices Implanted Type Area Parachute Inspector Device Identifier Shelf Expiration Date Model / Serial / Lot Device Perm Cntrl [id number] - [id number] Implanted:Qty: 2 on 09/30/2014 by Julio Ramírez MD at OR [facility] N/A: Fallopian Tube [employer] 03/02/2016 [id number] / / [id number] Description:Bilateral tubal documented as of this encounter Visit Diagnoses Diagnosis Pneumonia due to infectious organism, unspecified laterality, unspecified part of lung- Primary documented in this encounter Care Teams Public Utilities Sales Representative Relationship Specialty Start Date End Date Renetta Naidu DO [address] [place] [address] [place] [address] PCP - General Internal Medicine 11/12/23 documented as of this encounter
--- OUTSIDE RECORDS SUMMARY | 2024-04-10 00:55 | External Medical Summary | Summary of Care ---
Author Name Unknown Organization [facility] Address [address] [place] [facility] [place] [place] [address] Phone [phone] Care Team Providers Care Manager Diversity Name Role Phone Renetta Naidu DO Primary Care Provider Encounter Details Date Type Department Care Team (Late st Contact Info) Description 02/13/2024 Orders Only Hematology/Oncology Román Christensen [place] 200 [facility] [place] [address] Dano Espinosa MD 200 [facility] [place] [address] Allergies No known active allergiesdocumented as of [...] Team (Late st Contact Info) Description 02/21/2024 8:30 AM EST Office Visit Hematology/Oncology [facility] 200 [facility] [place] [phone] Consuelo Jarvis CRNP [address] [place] [address] [place] [address] 02/21/2024 9:00 AM EST Hem/Onc Treatment Hematology/Oncology Treatment, [place] 200 [facility] [place] [phone] Amparo, Chair 5 Hem Onc [address] [place] [address] 02/25/2024 7:45 AM EST Imaging Radiology [facility] 1st [facility], [place] 132 [facility] [place] [address] 03/04/2024 10:00 AM EST Laboratory Laboratory [address] [place] [phone] [place] [address] 03/05/2024 8:30 AM EST Office Visit Hematology/Oncology [facility] [place] 200 [facility] [place] [phone] Yogi Muñoz MD 200 [place] [address] 03/05/2024 9:00 AM EST Hem/Onc Treatment Hematology/Oncology Treatment, [place] 200 [facility], [place] [phone] [place], Chair 3 Hem Onc [facility] 200 [facility] [place], [place] [address] 07/21/2024 8:30 AM EDT Office Visit Family Medicine [address] [place] [phone] [address] [place] [address] Health Maintenance Due Date Last Done Comments [...] this encounter Medical Devices Implanted Type Area Consumer Educator Device Identifier Shelf Expiration Date Model / Serial / Lot Device Perm Cntrl [id number] - [id number] Implanted:Qty: 2 on 09/30/2014 by Julio Ramírez MD at OR [facility] N/A: Fallopian Tube [employer] 03/02/2016 [id number] / / [id number] Description:Bilateral tubal documented as of this encounter Care Teams Manager Diversity Relationship Specialty Start Date End Date Renetta Naidu DO [address] [place] [address] [place] [phone] PCP - General Internal Medicine 11/12/23 documented as of this encounter
--- OUTSIDE RECORDS SUMMARY | 2024-04-10 00:55 | External Medical Summary | Summary of Care ---
Author Name Unknown Organization [facility] Address [address] [facility] [place] [address] Phone [phone] Care Team Providers Care Fuel Operator Name Role Phone Naidu Renetta Mcdaniel Primary Care Provider Reason for Visit * Reason Onset Date Comments Scheduling 02/13/2024 Treatment, Muñzo Encounter Details Date Type Department Care Team (Late st Contact Info) Description 02/13/2024 Telephone Hematology/Oncology Román Christensen [place] [address] [place] [address] Yogi Muñoz MD 200 [facility] [place] [address] Scheduling (Treatment, Muñoz ) Allergies No known active allergiesdocumented [...] Telephone Encounter - Mata Zazueta RN - 02/13/2024 12:17 PM EST Noted, [place] updated. Dr. Evelin randall, patient moved chemo back 1 week per their preference. * Telephone Encounter - Jad Velez OSA - 02/13/2024 11:44 AM EST Patient rescheduled treatment per her preference Nursing FYI * Telephone Encounter - Flora Sabillon OSA - 02/13/2024 9:31 AM EST Patient calling to reschedule treatment and office visit that she has scheduled for tomorrow. Please advise and contact. Thank you documented in this encounter Plan of Treatment Upcoming Encounters Date Type Department Care Team (Late st Contact Info) Description 02/21/2024 8:30 AM EST Office Visit Hematology/Oncology Román Christensen [place] 200 [facility] [place] [address] Consuelo Jarvis CRNP [address] [place] [address] [place] [address] 02/21/2024 9:00 AM EST Hem/Onc Treatment Hematology/Oncology Treatment, [place] 200 [facility] [phone] Amparo, Chair 5 Hem Onc [place] 200 [facility] [place] [address] 02/25/2024 7:45 AM EST Imaging Radiology [facility] 1st [facility], [place] 132 [facility] [place] [address] 03/04/2024 10:00 AM EST Laboratory Laboratory [address] [place] [phone] [place], [address] [place] [address] 03/05/2024 8:30 AM EST Office Visit Hematology/Oncology [facility] 200 [facility] [place] [phone] Yogi Muñoz MD 200 [facility] [place] [address] 03/05/2024 9:00 AM EST Hem/Onc Treatment Hematology/Oncology Treatment, [place] 200 [facility] [place] [phone] Amparo, Chair 3 Hem Onc [facility] 200 [facility] [place] [address] 07/21/2024 8:30 AM EDT Office Visit Family Medicine [address] [place] [phone] [address] [place] [address] Health Maintenance Due Date Last Done Comments [...] this encounter Medical Devices Implanted Type Area Magento Web Developer Device Identifier Shelf Expiration Date Model / Serial / Lot Device Perm Cntrl [id number] - [id number] Implanted:Qty: 2 on 09/30/2014 by Julio Ramírez MD at OR [facility] N/A: Fallopian Tube [employer] 03/02/2016 [id number] / / [id number] Description:Bilateral tubal documented as of this encounter Care Teams Fuel Operator Relationship Specialty Start Date End Date Renetta Naidu DO [address] [place] [address] [place] [id number] PCP - General Internal Medicine 11/12/23 documented as of this encounter
--- OUTSIDE RECORDS SUMMARY | 2024-04-10 00:55 | External Medical Summary | Summary of Care ---
Author Name Unknown Organization [facility] Address [address] [place] [address] Phone [phone] Care Team Providers Care Construction Lineman Name Role Phone Renetta Naidu DO Primary Care Provider Reason for Visit * Reason Onset Date Comments Med Request 02/13/2024 Encounter Details Date Type Department Care Team (Late st Contact Info) Description 02/13/2024 Telephone Family Medicine [address] [phone] Renetta Naidu [address] [place] [address] Med Request Allergies [...] Larios CMA - 02/13/2024 12:44 PM EST [facility] for pneumonia. She only had one of [...] further assistance. Thank you, Viviana Cain CPhT Service Order Clerk II [facility] ([facility]) 02/13/2024,11:57 AM documented in this encounter Plan of Treatment Upcoming Encounters Date Type Department Care Team (Late st Contact Info) Description 02/17/2024 11:50 AM EST Office Visit Family Medicine [address] [place] [address] [place] [address] 02/21/2024 8:30 AM EST Office Visit Hematology/Oncology [facility] Amparo [address] [phone] Consuelo Jarvis CRNP [address] [place] [address] [place] [address] 02/21/2024 9:00 AM EST Hem/Onc Treatment Hematology/Oncology Treatment, [address] [address] Amparo, Chair 5 Hem Onc [place] 200 [facility] [place] [address] 02/25/2024 7:45 AM EST Imaging Radiology [facility] 1st [facility] [place] [facility] [place] [address] 03/04/2024 10:00 AM EST Laboratory Laboratory [address] [place] [phone] [place], Lab [address] [place] [address] 03/05/2024 8:30 AM EST Office Visit Hematology/Oncology [facility] [address] [place] [phone] Yogi Muñoz MD [address] [place] [address] 03/05/2024 9:00 AM EST Hem/Onc Treatment Hematology/Oncology Treatment, [place] [address] [facility] [phone] Amparo, Chair 3 Hem Onc [facility] 200 [facility] [place] [address] 07/21/2024 8:30 AM EDT Office Visit Family Medicine [address] [place] [phone] Renetta [address] [place] [address] Health Maintenance Due Date Last Done Comments [...] this encounter Medical Devices Implanted Type Area Electrogalvanizing Machine Operator Device Identifier Shelf Expiration Date Model / Serial / Lot Device Perm Cntrl [id number] - [id number] Implanted:Qty: 2 on 09/30/2014 by Julio Ramírez MD at OR [facility] N/A: Fallopian Tube [employer] 03/02/2016 [id number] / / [id number] Description:Bilateral tubal documented as of this encounter Visit Diagnoses Diagnosis Pneumonia due to infectious organism, unspecified laterality, unspecified part of lung- Primary documented in this encounter Care Teams Construction Lineman Relationship Specialty Start Date End Date Renetta Naidu DO [address] [place] [address] [place] [address] PCP - General Internal Medicine 11/12/23 documented as of this encounter
--- OUTSIDE RECORDS SUMMARY | 2024-04-10 00:55 | External Medical Summary | Summary of Care ---
Author Name Unknown Organization [facility] Address [address] [place] [address] Phone [phone] Care Team Providers Care Group Fitness Manager Name Role Phone Renetta Naidu DO Primary Care Provider Reason for Visit * Reason Onset Date Comments Hospital Follow-Up [facility] d/c 01/19 04/13; pt states feeling "still having a little trouble breathing". Hospital Follow-Up 02/17/2024 Encounter Details Date Type Department Care Team (Late st Contact Info) Description 02/17/2024 11:50 AM EST Office Visit Family Medicine [address] [place] [address] [place] [address] Hospital discharge follow-up*; Pneumonia of both lungs due to infectious organism, unspecified part of lung; Non-small cell cancer of right lung (HCC); Pancytopenia (HCC); Eye discharge; Diarrhea, unspecified type Allergies Active Allergy Reactions Criticality Noted Date Comments Levofloxacin Rash 02/17/2024 documented as of this encounter (statuses as of 02/17/2024) Medications lamoTRIgine 100 MG Oral Tablet (LaMICtal) [...] morning. 90 Tablet 3 02/07/20 24 Active Amoxicillin-Po t Clavulanate 875-125 MG Oral Tablet (Augmentin)Ind ications:Pneum onia due to infectious organism, unspecified laterality, unspecified part of lung Take 1 Tablet by mouth in the morning and 1 Tablet before bedtime. Do all this for 5 days. 10 Tablet 02/13/20 24 024 Active Azithromycin 250 MG Oral Tablet (Zithromax Z-Ayaz)Indicati ons:Pneumonia due to infectious organism, unspecified laterality, unspecified part of lung Take two tablets by mouth on first day, then 1 tablet daily until gone 6 Tablet 02/13/20 24 Active Polymyxin B-Trimethoprim 11747-1.1 UNIT/ML-% Ophthalmic Solution Instill 1 Drop into both eyes every 3 hours while awake for 7 days. (6 times a day) for 7 days. 10 mL 02/17/20 24 025 Active predniSONE 20 MG Oral Tablet (Deltasone)Ind ications:Acute pain of right shoulder 2 tablets daily for 5 days then 1 tablet daily 15 Tablet 11/12/19 24 024 Discontinued Rosuvastatin Calcium 10 MG Oral Tablet (Crestor)Indic ations:Dyslipi demia, goal LDL below 160 TAKE 1 TABLET BY MOUTH EVERY DAY IN THE MORNING 90 Tablet 11/14/19 24 024 Discontinued Hospital, Clinic, or Other [...] as of this encounter (statuses as of 02/17/2024) Active Problems Problem Noted Date Diagnosed Date [...] as of this encounter (statuses as of 02/17/2024) Resolved Problems Problem Noted Date Diagnosed Date Resolved Date Mass of right lung 11/28/2023 Restrictive lung disease 06/15/2022 Depression 05/02/2012 06/15/2022 Generalized anxiety disorder 01/14/2012 06/15/2022 documented as of this encounter (statuses as of 02/17/2024) Immunizations Name Administration Dates Next Due Pneumococcal [...] Sign Reading Time Taken Comments Blood Pressure 122/58 02/17/2024 10:43 AM EST Pulse 117 02/17/2024 10:43 AM EST Temperature 36.4 C (97.6 F) 02/17/2024 10:[address] Respiratory Rate - - Oxygen Saturation 94% 02/17/2024 10:43 AM EST Inhaled Oxygen Concentration - - Weight 68.2 kg (150 lb 6.4 oz) 02/17/2024 10:43 AM EST Height - - Body Mass Index 28.42 12/06/2023 12:06 PM EDT documented in this encounter Progress Notes * Renetta Naidu, - 02/17/2024 10:45 AM EST SUBJECTIVE: Sarah Ponce is a 48 year old female. Chief Complaint Patient presents with Hospital Follow-Up [facility] d/c 02/09/24; pt states feeling "still having a little trouble breathing". Hospital Follow-Up Recent Admission: Patient was recently admitted to [facility]. The date of discharge was 02/09/24. Discharge report received and reviewed. Admitted with bilateral pneumonia - treated inpatient with cefepime and azithromycin. Discharged on levaquin but developed a rash so was switched to augmentin and azithromycin. Also transfused 2 units PRBC for anemia. HPI: Sarah Ponce presents today for HD follow up. She finished her course of antibiotics today. Still having trouble breathing. Feels a little better when she went in the hospital but breathing is still worse than what it was a month ago. She continues to smoke but has cut back to 5-6 per day. Appetite is poor but weight is stable. She is drinking Ensure. Oxygen level is okay here today. Feels okay at rest, but gets SOB when walking. She will have her 4th cycle of chemo this Saturday. She continues to use her Trelegy. 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 90 Tablet 3 Amoxicillin-Pot Clavulanate 875-125 MG Oral Tablet (Augmentin) Take 1 Tablet by mouth in the morning and 1 Tablet before bedtime. Do all this for 5 days. 10 Tablet 0 Azithromycin 250 MG Oral Tablet (Zithromax Z-Ayaz) Take two tablets by mouth on first day, then 1 tablet daily until gone 6 Tablet 0 predniSONE 20 MG Oral Tablet (Deltasone) 2 tablets daily for 5 days then 1 tablet daily (Patient not taking: Reported on 02/17/2024) 15 Tablet 0 Rosuvastatin Calcium 10 MG Oral Tablet (Crestor) TAKE 1 TABLET BY MOUTH EVERY DAY IN THE MORNING (Patient not taking: Reported on 02/17/2024) 90 Tablet 0 Current Facility-Administered Medications Medication Dose Route Frequency Provider Last Rate Last Admin Albuterol Sulfate (Proventil) (5 MG/ML) 0.5% *conc* inhalation solution 2.5 mg 2.5 mg Nebulizer PRN Albuterol Sulfate (Proventil) (2.5 MG/3ML) 0.083% inhalation solution 2.5 mg 2.5 mg Nebulizer PRN 2.5 mg at 11/20/23 1418 Current and discharge medications have been reconciled. Review of patient's allergies indicates: No Known Allergies OBJECTIVE: BP 122/58 | Pulse 117 | Temp 97.6 F (36.4 C) | Wt 150 lb 6.4 oz (68.2 kg) | LMP 02/01/2021 (Approximate) | SpO2 94% | BMI 28.42 kg/m | BSA 1.71 m Review Of Systems: Skin: negative Eyes: negative Ears/Nose/Throat: watery Respiratory: dyspnea on exertion Cardiovascular: negative Gastrointestinal: negative, diarrhea Genitourinary: negative Musculoskeletal: negative Neurologic: negative Psychiatric: negative Hematologic/Lymphatic/Immunologic: (+) cancer Endocrine: negative PHYSICAL EXAM: General: alert, healthy, no distress, well nourished, and well developed Neck: supple, no adenopathy, thyroid normal size, non-tender, without nodularity Heart: regular rate & rhythm and no murmur, HR borderline tachycardic Lungs: chest symmetric with normal AP diameter, no chest deformities noted, normal respiratory rateand rhythm, lungs clear to auscultation, oxygen level is normal. Abdomen: abdomen soft and non-tender Extremities: no joint deformities, effusion, or inflammation, no edema Neuro Exam: alert & oriented x 3 with fluent speech, no focal motor/sensory deficits, gait normal Skin: skin color, texture, turgor are normal, no rashes or significant lesions ASSESSMENT/PLAN: Hospital discharge follow-up (Primary) - DISCH MED RECON CUR MED LIS Pneumonia of both lungs due to infectious organism, unspecified part of lung - she has completed her course of antibiotics. Breathing is stable, although not back to normal. Suspect this could be duein part to her underlying malignancy and known anemia. Non-small cell cancer of right lung (HCC) - follow up with oncology on Saturday as scheduled. Diarrhea - advised to let oncology know on Saturday if she continues to have diarrhea as she may needto be checked for C. Diff. Pancytopenia (HCC) - secondary to her chemotherapy. Eye discharge - conjunctiva is not erythematous but with her eyes crusted shut every morning, will treat with Polytrim Other orders - Polymyxin B-Trimethoprim 66314-1.1 UNIT/ML-% Ophthalmic Solution; Instill 1 Drop into both eyes every 3 hours while awake for 7 days. (6 times a day) for 7 days. Follow Up: Return for as scheduled. | For: as scheduled I spent a total of 30-39 minutes (exact time 30 mins) minutes on the date of service in preparation, delivery, and documentation of the care provided to Sarah Ponce excluding any time spent in performance of separately billed services. Renetta Naidu DO documented in this encounter Plan of Treatment Upcoming Encounters Date Type Department Care Team (Late st Contact Info) Description 02/21/2024 8:30 AM EST Office Visit Hematology/Oncology [address] [place] [phone] Consuelo Jarvis CRNP [address] [facility] [place] [address] 02/21/2024 9:00 AM EST Hem/Onc Treatment Hematology/[address]cology [address] [phone] Amparo, Chair 5 Hem Onc [address] [place] [address] 02/25/2024 7:45 AM EST Imaging Radiology [address], [address] [address] 03/04/2024 10:00 AM EST Laboratory Laboratory [address] [place] [phone] [place] [address] 03/05/2024 8:30 AM EST Office Visit Hematology/Oncology [facility] [address] [place] [phone] Yogi Muñoz MD [address] [place] [address] [place] [address] 03/05/2024 9:00 AM EST Hem/Onc Treatment Hematology/Oncology [address] [place] [phone] Amparo, Chair 3 Hem Onc Scene 200 [facility] [place] [address] 07/21/2024 8:30 AM EDT Office Visit Family [address] [place] [phone] [address] [place] [address] Health Maintenance Due Date Last Done Comments [...] this encounter Medical Devices Implanted Type Area Stna Device Identifier Shelf Expiration Date Model / Serial / Lot Device Perm Cntrl [id number] - [id number] Implanted:Qty: 2 on 09/30/2014 by Julio Ramírez MD at OR [facility] N/A: Fallopian Tube [employer] 03/02/2016 [id number] / / [id number] Description:Bilateral tubal documented as of this encounter Visit Diagnoses Diagnosis Hospital discharge follow-up- Primary Other follow-up examination Pneumonia of both lungs due to infectious organism, unspecified part of lung Non-small cell cancer of right lung (HCC) Pancytopenia (HCC) Other pancytopenia Eye discharge Redness or discharge of eye Diarrhea, unspecified type documented in this encounter Care Teams Group Fitness Manager Relationship Specialty Start Date End Date Renetta Naidu DO [address] [place] [address] [place] [address] PCP - General Internal Medicine 11/12/23 documented as of this encounter
--- OUTSIDE RECORDS SUMMARY | 2024-04-10 00:56 | External Medical Summary | Summary of Care ---
Author Name Unknown Organization [facility] Address [address] [facility] [place] [address] Phone [phone] Care Team Providers Care Speech Pathology Supervisor Name Role Phone NaiduRenetta philip Primary Care Provider Reason for Visit * Reason Onset Date Comments Medication Refill 02/07/2024 Encounter Details Date Type Department Care Team (Late st Contact Info) Description 02/07/2024 Refill Hematology/Oncology [facility] [place] [address] [facility] [place] [phone] Yogi Muñoz MD 200 [facility] [place] [address] Malignant neoplasm of upper lobe of right lung (HCC); Metastasis to mediastinal lymph node (HCC) Allergies No known active allergiesdocumented as of this encounter (statuses as of 02/11/2024) Medications lamoTRIgine 100 MG Oral Tablet (LaMICtal) [...] 24 Active predniSONE 20 MG Oral Tablet (Deltasone)Racuqel cations:Acute pain of right shoulder 2 tablets daily for 5 days then 1 tablet daily 15 Tablet 11/12/19 24 Active Additional Information Patient not taking.Reported on 11/26/2023 Rosuvastatin Calcium 10 MG Oral Tablet (Crestor)Indica tions:Dyslipide marilyn, goal LDL below 160 TAKE 1 TABLET BY MOUTH EVERY DAY IN THE MORNING 90 Tablet 11/14/19 24 Active dexAMETHasone 4 MG Oral Tablet [...] morning. 90 Tablet 3 02/07/20 24 Active Folic Acid 1 MG Oral TabletIndicatio ns:Malignant neoplasm of upper lobe of right lung (HCC),Metastasi s to mediastinal lymph node (HCC) Take 1 Tablet by mouth in the morning. 30 Tablet 5 12/06/19 24 024 Discontin ued(Refil l) Hospital, Clinic, [...] as of this encounter (statuses as of 02/11/2024) Active Problems Problem Noted Date Diagnosed Date [...] as of this encounter (statuses as of 02/11/2024) Resolved Problems Problem Noted Date Diagnosed Date Resolved Date Restrictive lung disease 06/15/2022 Depression 05/02/2012 06/15/2022 Generalized anxiety disorder 01/14/2012 06/15/2022 documented as of this encounter (statuses as of 02/11/2024) Immunizations Name Administration Dates Next Due Pneumococcal [...] Telephone Encounter - Vivian Booker RN - 02/07/2024 2:06 PM ESTSigned Prescriptions: Disp Refills Folic Acid 1 MG Oral Tablet 90 Tab*3 Sig: Take 1 Tablet by mouth in the morning. Authorizing Provider: FARIHA JARVIS * Telephone Encounter - Armida Chin LPN - 02/07/2024 1:16 PM EST Fax refill request received from [facility]. Requesting a 90-Day supply for Folic Acid 1 mg tabs. Last refilled 12/06/2023 Script pended below. documented in this encounter Plan of Treatment Upcoming Encounters Date Type Department Care Team (Late st Contact Info) Description 02/13/2024 10:00 AM EST Laboratory Laboratory [address] [place] [phone] [place] [address] 02/14/2024 8:30 AM EST Office Visit Hematology/Oncology [facility] 200 [facility] [place] [phone] Fariha Jarvis CRNP [address] [place] [address] [place] [address] 02/14/2024 9:00 AM EST Hem/Onc Treatment Hematology/Oncology [address] [place] [phone] Amparo, Chair 3 Hem Onc [address] [place] [address] 02/25/2024 7:45 AM EST Imaging Radiology [address], [place] [address] [facility] [place] [address] 03/04/2024 10:00 AM EST Laboratory Laboratory [address] [place] [address] [place] [address] 03/05/2024 8:30 AM EST Office Visit Hematology/Oncology [facility] [place] [address] [facility] [place] [phone] Yogi Muñoz MD 200 [facility] [place] [address] 03/05/2024 9:00 AM EST Hem/Onc Treatment Hematology/Oncology Treatment, [address] [place] [phone] Amparo, Chair 3 Hem Onc Scenery [address] [place] [address] 07/21/2024 8:30 AM EDT Office Visit Family Medicine [address] [place] [phone] [place] [address] Health Maintenance Due Date Last Done Comments [...] this encounter Medical Devices Implanted Type Area Insect Control Aide Device Identifier Shelf Expiration Date Model / Serial / Lot Device Perm Cntrl [id number] - [id number] Implanted:Qty: 2 on 09/30/2014 by Julio Ramríez MD at OR [facility] N/A: Fallopian Tube [employer] 03/02/2016 [id number] / / [id number] Description:Bilateral tubal documented as of this encounter Visit Diagnoses Diagnosis Malignant neoplasm of upper lobe of right lung (HCC) Malignant neoplasm of upper lobe, bronchus or lung 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
--- OUTSIDE RECORDS SUMMARY | 2024-04-10 00:56 | External Medical Summary ---
Author Name Unknown Address Unknown Organization K01:[facility] [place] [address] [facility] [place] [address] Laboratory Report Ordering Provider Test Date Status JARED MAGAÑA 02/13/2024 08:52:56 Final Observation Date Value Abnormality Reference (Units ) Status SYNC LEUKOCYTES IN BLOOD BY AUTOMATED COUNT 02/13/2024 08:52:56 7.11 4.00-10.80 (K/uL) Final Segs 02/13/2024 08:52:56 63.7 40.0-75.0 (%) Final Lymphs % 02/13/2024 08:52:56 16.5 Below low normal 18.0-42.0 (%) Final Monos 02/13/2024 08:52:56 14.9 Above high normal 1.0-11.0 (%) Final Eosinophils 02/13/2024 08:52:56 3.0 0.0-6.0 (%) Final Basos 02/13/2024 08:52:56 0.6 0.0-2.0 (%) Final Immature Granulocyte, Percent 02/13/2024 08:52:56 1.3 0.0-2.0 (%) Final Absolute Segs 02/13/2024 08:52:56 4.54 1.80-7.70 (K/uL) Final Lymphs, absolute 02/13/2024 08:52:56 1.17 1.00-4.80 (K/ul) Final Monos, Abs 02/13/2024 08:52:56 1.06 0.00-1.10 (K/uL) Final Eos, Abs 02/13/2024 08:52:56 0.21 0.00-0.70 (K/uL) Final Basos, Abs 02/13/2024 08:52:56 0.04 0.00-0.20 (K/uL) Final Immature Granulocytes, Number 02/13/2024 08:52:56 0.09 0.00-0.20 (K/uL) Final Performing Location [facility] [address] [place] [address]
--- OUTSIDE RECORDS SUMMARY | 2024-04-10 00:56 | External Medical Summary ---
Author Name Unknown Address Unknown Organization K01:LABORATORY [facility] [place] - [address] [place] [address] Laboratory Report Ordering Provider Test Date Status JARED MAGAÑA 02/13/2024 08:52:56 Final Observation Date Value Abnormality Reference (Units ) Status TSH 02/13/2024 08:52:56 4.30 Above high normal 0. 27-4.20 (uIU/mL) Final Performing Location LABORATORY [facility] - [address] [place] [address]
--- OUTSIDE RECORDS SUMMARY | 2024-04-10 00:56 | External Medical Summary | Summary of Care ---
Author Name Unknown Organization [facility] Address [address] [facility] [place] [address] Phone [phone] Care Team Providers Care Outer Diameter Grinder Tool Name Role Phone Naidu Renetta Violeta SHIPMAN Primary Care Provider Reason for Visit * Reason Onset Date Comments Advice 02/07/2024 Encounter Details Date Type Department Care Team (Late st Contact Info) Description 02/07/2024 Telephone Hematology/Oncology [facility] 200 [facility] [address] Yogi Muñoz MD [address] [place] [address] Advice Allergies No known active allergiesdocumented as of this encounter (statuses as of 02/10/2024) Medications lamoTRIgine 100 MG Oral Tablet (LaMICtal) [...] as of this encounter (statuses as of 02/10/2024) Active Problems Problem Noted Date Diagnosed Date [...] as of this encounter (statuses as of 02/10/2024) Resolved Problems Problem Noted Date Diagnosed Date Resolved Date Restrictive lung disease 06/15/2022 Depression 05/02/2012 06/15/2022 Generalized anxiety disorder 01/14/2012 06/15/2022 documented as of this encounter (statuses as of 02/10/2024) Immunizations Name Administration Dates Next Due Pneumococcal [...] Telephone Encounter - Vivian Booker RN - 02/10/2024 8:56 AM EST Called patient- she went to [facility] Saturday, was admitted and discharged yesterday. Was given a blood transfusion and diagnosed with pneumonia. Patient discharged with levaquin rx x8 more days. Patient asked about treatment Saturday- she would like to keep appts as planned. Advised her to see how she feels. If she feels up to treatment, she can keep appts as scheduled as we will be checking labs, vitals, and she is seeing a provider to make sure she is ok for treatment. If she does not feelup to getting treatment, asked her to let us know on and we can reschedule appts. She verbalized understanding. * Telephone Encounter - Mata Zauzeta RN - 02/07/2024 11:48 AM EST Called patient back, she states she is getting a ride. She will be going to [facility] ER. N:S- please follow up with patient [...] Description 02/13/2024 10:00 AM EST Laboratory Laboratory [address] [place] [phone] [address] [place] [address] 02/14/2024 8:30 AM EST Office Visit Hematology/Oncology [facility] Amparo [place] 200 [facility] [place] [phone] Consuelo Jarvis CRNP [address] [place], [place] [address] [address] 02/14/2024 9:00 AM EST Hem/Onc Treatment [facility]ematology[facility]cology [facility], [place] [facility] [phone] Amparo, Chair 3 Hem Onc Scenery 200 [facility] [place] [address] 02/25/2024 7:45 AM EST Imaging Radiology [facility] [place] [address] [facility] [place] [address] 03/04/2024 10:00 AM EST Laboratory Laboratory [address] [place] [phone] [place], Lab [address] [place] [address] 03/05/2024 8:30 AM EST Office Visit Hematology/Oncology [facility] 200 [facility] [place] [phone] Yogi Muñoz MD 200 [facility] [place] [address] 03/05/2024 9:00 AM EST Hem/Onc Treatment Hematology/Oncology Treatment, [place] 200 [facility], [place] [phone] Amparo, Chair 3 Hem Onc [facility] [address] [facility] [place] [address] 07/21/2024 8:30 AM EDT Office Visit Family Medicine [address] [place] [phone] [place] [address] Health Maintenance Due Date Last Done Comments [...] this encounter Medical Devices Implanted Type Area Cargo Handler Device Identifier Shelf Expiration Date Model / Serial / Lot Device Perm Cntrl [id number] - [id number] Implanted:Qty: 2 on 09/30/2014 by Julio Ramírez MD at OR [facility] [address] N/A: Fallopian Tube [employer] 03/02/2016 [id number] / / [id number] Description:Bilateral tubal documented as of this encounter Care Teams Outer Diameter Grinder Tool Relationship Specialty Start Date End Date Renetta Naidu DO [address] [place] [address] [place] [address] PCP - General Internal Medicine 11/12/23 documented as of this encounter
--- OUTSIDE RECORDS SUMMARY | 2024-04-10 00:56 | External Medical Summary ---
Author Name Unknown Address Unknown Organization K01:[facility] [place] [address] [facility] [address] [place] [address] Laboratory Report Ordering Provider Test Date Status JARED MAGAÑA 02/13/2024 08:52:56 Final Observation Date Value Abnormality Reference (Units ) Status WBC, Total 02/13/2024 08:52:56 7.11 4.00-10.80 (K/uL) Final RBC 02/13/2024 08:52:56 2.93 3.85-5.15 (M/uL) Final Hemoglobin 02/13/2024 08:52:56 9.4 Below low normal 12.0-15.3 (g/dL) Final HCT 02/13/2024 08:52:56 30.2 Below low normal 36.0-45.2 (%) Final MCV 02/13/2024 08:52:56 103.1 81.5-97.5 (fL) Final MCH 02/13/2024 08:52:56 32.1 27.0-34.0 (pg) Final MCHC 02/13/2024 08:52:56 31.1 32.0-36.0 (g/dL) Final RDW 02/13/2024 08:52:56 19.6 11.5-15.5 (%) Final Platelets 02/13/2024 08:52:56 247 140-400 (K/uL) Final MPV 02/13/2024 08:52:56 10.7 6.6-11.1 (fL) Final Nucleated erythrocytes/100 leukocytes [Ratio] in Blood by Automated count 02/13/2024 08:52:56 0 <=0 (/100 WBCs) Final Performing Location [facility] [place] [address] [place] [address]
--- OUTSIDE RECORDS SUMMARY | 2024-04-10 00:56 | External Medical Summary | Summary of Care ---
Author Name Unknown Organization [facility] Address [address] [place] [facility] [place] [address] Phone [phone] Care Team Providers Care Senior Windows Engineer Name Role Phone Naidu Renetta Mcdaniel Primary Care Provider Reason for Visit * Reason Onset Date Comments Scheduling 02/13/2024 Treatment, Muñoz Encounter Details Date Type Department Care Team (Late st Contact Info) Description 02/13/2024 Telephone Hematology/Oncology Román Christensen [place] 200 [facility] [place] [address] Yogi Muñoz MD 200 [facility] [place] [address] Scheduling (Treatment, Muñoz ) Allergies No [...] 02/21/2024 8:30 AM EST Office Visit Hematology/Oncology [address] [place] [phone] Consuelo Jarvis CRNP [address] [place] [address] [place] [address] 02/21/2024 9:00 AM EST Hem/Onc Treatment Hematology/Oncology Treatment, [place] 200 [facility] [place] [phone] Amparo, Chair 5 Hem Onc [address] [place] [address] 02/25/2024 7:45 AM EST Imaging Radiology [facility] 1st Floor, [place] [address] [place] [address] 03/04/2024 10:00 AM EST Laboratory Laboratory [address] [place] [phone] [place], Lab [address] [place] [address] 03/05/2024 8:30 AM EST Office Visit Hematology/Oncology [facility] [address] [place] [phone] Yogi Muñoz MD [address] [place] [address] 03/05/2024 9:00 AM EST Hem/Onc Treatment Hematology/Oncology Treatment, [place] [address] [place] [phone] Amparo, Chair 3 Hem Onc [facility] 200 [facility] [place] [address] 07/21/2024 8:30 AM EDT Office Visit Family Medicine [address] [place] [phone] [address] [place] [address] Health Maintenance Due Date Last Done Comments [...] this encounter Medical Devices Implanted Type Area Vp Security Device Identifier Shelf Expiration Date Model / Serial / Lot Device Perm Cntrl [id number] - [id number] Implanted:Qty: 2 on 09/30/2014 by Julio Ramírez MD at OR [facility] N/A: Fallopian Tube [employer] 03/02/2016 [id number] / / [id number] Description:Bilateral tubal documented as of this encounter Care Teams Senior Windows Engineer Relationship Specialty Start Date End Date Renetta Naidu DO [address] [place] [address] [place] [address] PCP - General Internal Medicine 11/12/23 documented as of this encounter
--- OUTSIDE RECORDS SUMMARY | 2024-04-10 00:56 | External Medical Summary ---
Author Name Unknown Address Unknown Organization K01:[place] [facility] [place] [address] [facility] [place] [address] Laboratory Report Ordering Provider Test Date Status JARED MAGAÑA 02/13/2024 08:52:56 Final Observation Date Value Abnormality Reference (Units ) Status BUN 02/13/2024 08:52:56 10 6-20 (mg/dL) Final Creatinine 02/13/2024 08:52:56 1.0 0.5-1.0 (mg/dL) Final Glomerular filtration rate/1.73 sq M.predicted [Volume Rate/Area] in Serum, Plasma or Blood by Creatinine-based formula (CKD-EPI) 02/13/2024 08:52:56 68 >=60 (mL/min) Final eGFR is calculated based on the CKD-EPI 2020 equation. Sodium 02/13/2024 08:52:56 139 135-146 (m mol/L) Final Potassium 02/13/2024 08:52:56 3.9 3.5-5.1 (m mol/L) Final Cl 02/13/2024 08:52:56 100 98-107 (mm ol/L) Final CO2 02/13/2024 08:52:56 27 22-32 (mmo l/L) Final Anion gap 02/13/2024 08:52:56 12 7-15 (mmol /L) Final Glucose 02/13/2024 08:52:56 128 Above high normal 70 -120 (mg/dL) Final Albumin 02/13/2024 08:52:56 2.7 Below low normal 3.8 -5.0 (g/dL) Final AST (Aspartate aminotransferase) 02/13/2024 08:52:56 53 Above high normal 10-35 (U/L) Final Alk Phos 02/13/2024 08:52:56 119 35-130 (U/ L) Final Bilirubin, Total 02/13/2024 08:52:56 0.4 <=1 .2 (mg/dL) Final Calcium 02/13/2024 08:52:56 8.6 8.4-10.2 ( mg/dL) Final Protein 02/13/2024 08:52:56 5.8 Below low normal 6.0 -8.3 (g/dL) Final ALT (Alanine aminotransferase) 02/13/2024 08:52:56 28 10-35 (U/L) Pito cabrera Performing Location [place] [facility] [place] [address] [facility] [address]
--- OUTSIDE RECORDS SUMMARY | 2024-04-10 00:56 | External Medical Summary | Summary of Care ---
Author Name Unknown Organization [facility] Address [address] [place] [facility] [place] [address] Phone [phone] Care Team Providers Care Pattern Weaver Name Role Phone Renetta Naidu DO Primary Care Provider Encounter Details Date Type Department Care Team (Late st Contact Info) Description 02/10/2024 Orders Only Hematology/Oncology Román Christensen [place] 200 [facility] [place] [phone] Dano Espinosa MD 200 [facility] [place] [address] Allergies No known active allergiesdocumented as of [...] Description 02/13/2024 10:00 AM EST Laboratory Laboratory [address] [place] [phone] [address] [place] [address] 02/14/2024 8:30 AM EST Office Visit Hematology/Oncology [facility] 200 [facility] [place] [phone] Consuelo Jarvis CRNP [address] [place] [address] [place] [address] 02/14/2024 9:00 AM EST Hem/Onc Treatment Hematology/Oncology Treatment, [place] 200 [facility] [place] [phone] Amparo, Chair 3 Hem Onc [address] [place] [address] 02/25/2024 7:45 AM EST Imaging Radiology [facility] 1st [facility], [place] 132 [facility] [place] [address] 03/04/2024 10:00 AM EST Laboratory Laboratory [address] [place] [phone] [address] [place] [address] 03/05/2024 8:30 AM EST Office Visit Hematology/Oncology [facility] [address] [place] [phone] Yogi Muñoz MD [address] [place] [address] 03/05/2024 9:00 AM EST Hem/Onc Treatment Hematology/Oncology Treatment, [place] [address] [place] [phone] Amparo, Chair 3 Hem Onc [facility] 200 [facility] [place] [address] 07/21/2024 8:30 AM EDT Office Visit Family Medicine [address] [place] [phone] [place] [address] Health Maintenance Due Date Last Done Comments [...] this encounter Medical Devices Implanted Type Area Cork Insulation Installer Device Identifier Shelf Expiration Date Model / Serial / Lot Device Perm Cntrl [id number] - [id number] Implanted:Qty: 2 on 09/30/2014 by Julio Ramírez MD at OR [facility] N/A: Fallopian Tube [employer] 03/02/2016 [id number] / / [id number] Description:Bilateral tubal documented as of this encounter Care Teams Pattern Weaver Relationship Specialty Start Date End Date Renetta Naidu DO [address] [place] [address] [place] [phone] PCP - General Internal Medicine 11/12/23 documented as of this encounter
--- OUTSIDE RECORDS SUMMARY | 2024-04-10 00:56 | External Medical Summary ---
Author Name Unknown Address Unknown Organization K01:LABORATORY [facility] - [address] [place] [address] Laboratory Report Ordering Provider Test Date Status JARED MAGAÑA 02/13/2024 08:52:56 Final Observation Date Value Abnormality Reference (Units ) Status T4, Free 02/13/2024 08:52:56 1.5 0.9-1.7 (n g/dL) Final Performing Location LABORATORY [facility] - [address] [place] [address]
--- OUTSIDE RECORDS SUMMARY | 2024-04-10 00:56 | External Medical Summary | Summary of Care ---
Author Name Unknown Organization [facility] Address [address] [place] [address] Phone [phone] Care Team Providers Care Placement Secretary Name Role Phone Renetta Naidu DO Primary Care Provider [phone] Reason for Visit * Reason Comments Outpatient Testing Encounter Details Date Type Department Care Team (Late st Contact Info) Description 02/13/2024 10:00 AM EST Laboratory Laboratory [address] [place] [phone] [place] [address] Malignant neoplasm of upper lobe of right [...] Care Team (Late st Contact Info) Description 02/14/2024 8:30 AM EST Office Visit Hematology/Oncology [address] [place] [phone] Consuelo Jarvis CRNP 400 [facility] [place] [address] 02/14/2024 9:00 AM EST Hem/Onc Treatment Hematology/Oncology Treatment, [place] [facility] [phone] Amparo, Chair 3 Hem Onc [address] [place] [address] 02/25/2024 7:45 AM EST Imaging Radiology [facility]st [facility], [place] 132 [facility] [place] [address] 03/04/2024 10:00 AM EST Laboratory Laboratory [address] [place] [phone] [place] [address] 03/05/2024 8:30 AM EST Office Visit Hematology/Oncology [address] [place] [phone] Yogi Muñoz MD [address] [place] [address] 03/05/2024 9:00 AM EST Hem/Onc Treatment Hematology/Oncology Treatment, [place] [address] [facility] [phone] Amparo, Chair 3 Hem Onc [facility] 200 [facility] [place] [address] 07/21/2024 8:30 AM EDT Office Visit Family Medicine [address] [phone] [place] [address] Pending Results Name Type Priority Associated Diagnoses Date /Time CBC WITH WBC DIFFERENTIAL Lab STAT Malignant neoplasm of upper lobe of right lung (HCC) Metastasis to mediastinal lymph node (HCC) 02/13/2024 8:52 AM EST COMPREHENSIVE METABOLIC PANEL Lab STAT Malignant neoplasm of upper lobe of right lung (HCC) Metastasis to mediastinal lymph node (HCC) 02/13/2024 8:52 AM EST TSH WITH FREE T4 IF INDICATED Lab STAT Malignant neoplasm of upper lobe of right lung (HCC) Metastasis to mediastinal lymph node (HCC) Bipolar disorder, unspecified (HCC) 02/13/2024 8:52 AM EST CBC Lab STAT Malignant neoplasm of upper lobe of right lung (HCC) Metastasis to mediastinal lymph node (HCC) 02/13/2024 8:52 AM EST DIFFERENTIAL, AUTOMATED Lab STAT Malignant neoplasm of upper lobe of right lung (HCC) Metastasis to mediastinal lymph node (HCC) 02/13/2024 8:52 AM EST Health Maintenance Due Date Last [...] this encounter Medical Devices Implanted Type Area Industrial Specialist Device Identifier Shelf Expiration Date Model / Serial / Lot Device Perm Cntrl [id number] - [id number] Implanted:Qty: 2 on 09/30/2014 by Julio Ramírez MD at OR [facility] N/A: Fallopian Tube [employer] 03/02/2016 [id number] / / [id number] Description:Bilateral tubal documented as of this encounter Visit Diagnoses Diagnosis Malignant neoplasm of upper lobe of right lung (HCC) Malignant neoplasm of upper lobe, bronchus or lung 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
[2024-04-10 07:44] LABS: Basophils # (auto) 0.03 K/uL (0.00-0.20); Basophils % (auto) 0.4 %; Eosinophils # (auto) 0.09 K/uL (0.00-0.50); Eosinophils % (auto) 1.2 %; Hematocrit (blood only) 38.4 % (37.0-47.0); Hemoglobin 12.5 g/dl (12.0-16.0); Immature Granulocytes # (auto) 0.05 K/uL (0.01-0.20); Immature Granulocytes % (auto) 0.6 %; Lymphocytes # (auto) 1.21 K/uL (1.20-3.40); Lymphocytes % (auto) 15.6 %; Mean Corpuscular Hemoglobin 33.9 pg (25.0-34.0); Mean Corpuscular Hgb Conc 32.6 g/dL (32.0-36.0); Mean Corpuscular Volume 104.1 fL (80.0-100.0); Mean Platelet Volume 10.4 fL (9.4-12.4); Monocytes # (auto) 0.67 K/uL (0.11-0.59); Monocytes % (auto) 8.6 %; Neutrophils # (auto) 5.71 K/uL (1.40-6.50); Neutrophils % (auto) 73.6 %; Platelet Count 127 K/uL (130-400); RDW Coefficient of Variation 16.2 % (11.5-14.5); RDW Standard Deviation 62.4 fL (36.4-46.3); Red Blood Count 3.69 M/uL (4.20-5.40); White Blood Count 7.76 K/ul (4.8-10.8)
[2024-04-10] MEDS: FLUTICASONE FUROATE 200MCG 14 PUFFS/INHALER INH SCH (07:44)
[2024-04-10] MEDS: predniSONE 10 MG TABLET PO SCH (07:45)
[2024-04-10] MEDS: FOLIC ACID 1 MG TAB PO SCH (07:45)
[2024-04-10] MEDS: PANTOprazole 40 MG TAB PO SCH (07:47)
[2024-04-10 07:59] LABS: Albumin Globulin Ratio 1.1 (0.9-2); Albumin Level 3.3 gm/dl (3.4-5.0); BUN Creatinine Ratio 10.2 (10-20); Bilirubin,Total 0.6 mg/dl (0.2-1.0); Calcium 8.7 mg/dl (8.6-10.3); Creatinine Clr Calc Pharmacy 63.9 ml/min; Magnesium 1.9 mg/dl (1.7-2.4); Potassium 3.2 mmol/L (3.5-5.1); Total Protein 6.3 gm/dl (6.0-8.3)
[2024-04-10] MEDS ORDERED: NON-FORMULARY MEDICATION (Fluticasone-Umeclidin-Vilanter [Trelegy Ellipta] 200-62.5-25 mcg INH SCH (09:00)
[2024-04-10] MEDS: UMECLIDINIUM/VILANTEROL 62.5/25MCG 7 PUFFS/INHALER INH SCH (10:38)
--- NOTE | 2024-04-10 13:08 | Hospitalist Progress Note ---
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 She is being managed for the following: Metastatic primary lung cancer: Acute hypoxic respiratory failure: Consolidation of right lower lobe of lung: Mixed restrictive and obstructive lung disease: Left lower lobe pneumonia, likely obstructive vs superimposed bacterial pneumonia Pt w/ c/o of cough x 3 days productive of yellow sputum CARGO ROUTER. No reported fevers. Was noted to be hypoxic on RA upon arrival to ED with O2 sat of 88%. Normally on 3L NC only with exertion prior to arrival. Needed upto 4L at rest at ED. Patient has however noticed some mild SOB at rest over the past week or so. Not currently on chemotherapy 2/2 Keytruda-induced pneumonitis. Admitting CXR w/ suspected LLL pneumonia. Last chemotherapy back in January 2024 [Alimta, carboplatin and Keytruda every 21 days]. Started Bactrim for PJP prophylaxis on 03/05/24. Currently on daily prednisone therapy given her history of Keytruda-induced pneumonitis. Was started on prednisone 60mg daily initially, now slowly tapered down to 30mg daily since 03/24/24. Has been on daily oral prednisone therapy since 02/21/24. continue w/ OP schedule of prednisone. MRSA neg. Resp biofire +ve for Influenza A, Start tamiflu Hold bactrim while on active antibiotic treatment. c/w zosyn, likely obstructive vs superimposed bacterial pneumonia Pulm consult, await recs. Continue prednisone, PPI, Trelegy inhaler, tamiflu. PRN Duonebs for SOB/wheezing. Utilize ISP as able. Attempt to wean resting O2 requirement as able. Tobacco use disorder: Currently smokes 2 cigarettes/day. Used to smoke 2ppd. Denies need for nicotine patch at this time. Smoking cessation encouraged. Bipolar 1 disorder: Chronic, stable. Continue Lybalvi and lamotrigine. DVT Prophylaxis: SQ Heparin Code Status: FULL CODE PCP: Renetta Naidu, Admission and Anticipated Discharge Date Admission Date: April 09, 2024 Subjective Patient was seen and examined at bedside. Patient was lying in bed, on 2 L oxygen via nasal cannula, NAD, resting comfortably. Patient reports eating okay and moving bowels okay, patient reports cough with yellowish sputum for last few days. Patient denies shortness of breath. Physical Exam Physical Exam: GENERAL: Alert and oriented x3. NAD, on 2L NC O2. HEENT: No pallor, no icterus. Pupils equal, round and reactive to light. Oral mucosa moist. NECK: No JVD, no neck masses. HEART: S1 and S2 heard. Regular rate and rhythm. No murmur, no gallop. RESPIRATORY SYSTEM: Normal AP diameter. No accessory muscle use. No wheezing, no crackles. decreased breath sounds Rt lung and LLL. ABDOMEN: Soft, bowel sounds present, nontender, no distention. CENTRAL NERVOUS SYSTEM: No facial droop. Speech is clear. Obeys simple commands. Moves extremities. EXTREMITIES: No edema, no erythema seen. Results & Data Results & Data Vital Signs (Past 12 Hours) Vital Signs Temp Pulse Pulse Resp BP Pulse Ox O2 Del Method 04/10/24 11:20 36.9 C 106 H 18 113/70 92 Nasal Cannula 04/10/24 09:51 88 04/10/24 08:50 Nasal Cannula 04/10/24 07:10 37.1 C 104 H 18 113/65 93 Nasal Cannula 04/10/24 03:02 37.0 C 89 20 125/66 89 L Room Air O2 Flow Rate 04/10/24 11:20 2 04/10/24 09:51 04/10/24 08:50 2 04/10/24 07:10 2 04/10/24 03:02 (1) Pneumonia Laterality: right Lung location: lower lobe of lung Pneumonia type: due to unspecified organism Qualified Code(s): J18.9 - Pneumonia, unspecified organism
[2024-04-10] MEDS: OSELTAMIVIR PHOSPHATE 75 MG CAP PO SCH (13:58)
[2024-04-10] MEDS: POTASSIUM CHLORIDE CRTAB 20 MEQ TABCR PO STA (13:58)
--- NOTE | 2024-04-10 15:22 | Pulmonary Consultation ---
Date of Consultation April 10, 2024 Assessment & Plan (1) Consolidation of right lower lobe of lung: Right lower lobe atelectasis noted with debris in the right lower lobe bronchus. Suspect an element of bacterial pneumonia superimposed on influenza A. Agree with Zosyn. Will add azithromycin for atypical coverage. Obtain urine Legionella antigen. Obtain sputum culture. MRSA screen negative. Patient relatively stable at this present time and will hold on bronchoscopy. Will start conservative mucociliary clearance strategies with hypertonic saline twice daily, Perforomist twice daily, nebulized budesonide twice daily and percussive chest physiotherapy 4 times a day. Repeat chest x-ray on Saturday. (2) Tobacco use disorder: Smoke cessation highly advised. (3) Metastatic primary lung cancer: Patient's chemoimmunotherapy currently on hold due to concerns of pulmonary toxicity per the patient and patient's family. Currently on 30 mg prednisone for pneumonitis. Will continue this regimen while in the hospital and she will need follow-up with her outpatient manager of it and oncologist. Laterality: unspecified laterality Qualified Code(s): C34.90 - Malignant neoplasm of unspecified part of unspecified bronchus or lung (4) Influenza: Supportive care, Tamiflu and droplet precautions. 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 Family indicates that she has been having shortness of breath since January which is worsened over the last few days. She has occasional sputum production. She has mild pleurisy. She tested positive for influenza A and is currently on Tamiflu. She is also on Zosyn for possible superimposed bacterial pneumonia. Chest x-ray completed yesterday elevation of the right diaphragm, perihilar infiltrate on the right and mild infiltrate in the left lower lobe. She had an outpatient CT chest performed yesterday which revealed a lobulated right upper lobe nodule which was the primary site of lung cancer and partial collapse of her right lower lobe with improvement in her right lower lobe airways. The left-sided infiltrates actually appear to be improved compared to her CT from 02/07/2024. She continues to smoke about 2 to 3 cigarettes a day. Allergies Allergy/AdvReac Type Severity Reaction Status Date / Time No Known Allergies Allergy Unverified 04/09/24 16:36 Home Medications Medication Instructions Recorded Confirmed Type albuterol sulfate 90 mcg/actuation 2 inh inhalation Q6 PRN DYSPNEA OR 02/07/24 04/09/24 History aerosol inhaler WHEEZING fluticasone fur. 200 mcg-umeclid 1 inh inhalation QAM 02/07/24 04/09/24 History 62.5 mcg-vilant 25 mcg inhalat.powder (Trelegy Ellipta) folic acid 1 mg tablet 1 mg PO DAILY 02/07/24 04/09/24 History lamotrigine 100 mg tablet 100 mg PO BID 02/07/24 04/09/24 History olanzapine 20 mg-samidorphan 10 mg 1 tab PO HS 02/07/24 04/09/24 History tablet (Lybalvi) pantoprazole 40 mg tablet,delayed 40 mg PO DAILY 02/07/24 04/09/24 History release ondansetron HCl 8 mg tablet 8 mg PO Q8 PRN Nausea 04/09/24 04/09/24 History prednisone 10 mg tablet 30 mg PO QAM 04/09/24 04/09/24 History prochlorperazine maleate 10 mg 10 mg PO Q6 PRN Nausea 04/09/24 04/09/24 History tablet sulfamethoxazole 800 1 tab PO 3XWK 04/09/24 04/09/24 History mg-trimethoprim 160 mg tablet Patient History Surgical History History of cholecystectomy History of bronchoscopy 11/28/23 Family History Grandmother (Maternal) Breast cancer Other Dyslipidemia Hypertension Social History Smoking Status: Current every day smoker Tobacco Type: Cigarettes Cigarettes Per Day: 2 cigarettes per day; Second Hand Exposure: No; Do You Dip or Chew Tobacco: No; Tobacco Cessation Education Requested by Patient: No Hx Alcohol Use: No Hx Substance Use: No Preferred Language: Bulgarian Communication Ability: Effective 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 Patient is in no apparent distress. Patient is well-developed. Eyes: Pupils are equal round and reactive to light. Conjunctivae are normal. Anicteric sclera. Ears nose, mouth and throat: No perioral cyanosis. Nasal cannula in place. Neck: Trachea is midline. Visual inspection is normal. Respiratory: Right lower lobe rhonchi. Minimal crackles in the left lower lobe. No significant tachypnea. Cardiovascular: Regular rate and rhythm. No murmurs. No edema. Gastrointestinal: Normal bowel sounds, soft, nontender and nondistended. No hepatosplenomegaly noted. Musculoskeletal: No cyanosis. Patient is able to move all extremities. Strength is 5 out of 5 in the upper and lower extremities. Skin: No rashes, warm dry and intact. Neurologic: No obvious focal neurological deficits seen. Psychiatric: Alert and oriented x3 with a euthymic affect. Results & Data Results & Data Vital Signs (Past 12 Hours) Vital Signs Temp Pulse Pulse Resp BP Pulse Ox O2 Del Method 04/10/24 11:20 36.9 C 106 H 18 113/70 92 Nasal Cannula 04/10/24 09:51 88 04/10/24 08:50 Nasal Cannula 04/10/24 07:10 37.1 C 104 H 18 113/65 93 Nasal Cannula O2 Flow Rate 04/10/24 11:20 2 04/10/24 09:51 04/10/24 08:50 2 04/10/24 07:10 2 PG Care Time/CCT Total # of Minutes Spent Total Time Spent with Patient: Total time spent is greater than 50% in coordination of care (as documented) at patient's floor/unit and/or counseling patient: Coding Level of Care Code 36586 IN/OBS CONSULT LVL 4,60M Diagnoses Consolidation of right lower lobe of lung J18.1 Tobacco use disorder F17.200 Primary malignant neoplasm of lung metastatic to other site, unspecified laterality C34.90 Laterality: unspecified laterality Influenza J11.1
[2024-04-10] MEDS ORDERED: AZITHROMYCIN 500 MG VIAL IV ONE (15:23)
[2024-04-10] MEDS: AZITHROMYCIN 500 MG in SODIUM CHLORIDE 0.9% 250 ML IV ONE (17:43)
[2024-04-10] MEDS: FORMOTEROL 20 MCG/2 ML VIAL NEB SCH (19:20)
[2024-04-10] MEDS: SODIUM CHLOR 7% 4 ML NEB NEB SCH (19:20)
[2024-04-10] MEDS: BUDESONIDE 0.5 MG/2 ML VIAL (PULMICORT) NEB SCH (19:24)
[2024-04-10] MEDS: [UNRECOGNIZED DRUG - OTHER] EXT SCH (20:07)
[2024-04-10] MEDS: OLANZAPINE SAMIDORPHAN EXT SCH (20:07)
[2024-04-11 06:20] LABS: Hemoglobin 11.9 g/dl (12.0-16.0); Mean Corpuscular Hemoglobin 34.4 pg (25.0-34.0); Mean Corpuscular Hgb Conc 33.1 g/dL (32.0-36.0); Mean Platelet Volume 10.5 fL (9.4-12.4); Platelet Count 130 K/uL (130-400); RDW Coefficient of Variation 15.9 % (11.5-14.5); RDW Standard Deviation 61.3 fL (36.4-46.3); Red Blood Count 3.46 M/uL (4.20-5.40); White Blood Count 6.86 K/ul (4.8-10.8)
[2024-04-11 06:32] LABS: BUN Creatinine Ratio 14.3 (10-20); Calcium 8.7 mg/dl (8.6-10.3); Creatinine Clr Calc Pharmacy 68.8 ml/min; Phosphorus 4.1 mg/dl (2.5-4.9); Potassium 3.3 mmol/L (3.5-5.1)
[2024-04-11] MEDS: POTASSIUM CHLORIDE CRTAB 20 MEQ TABCR PO STA (08:59)
[2024-04-11] MEDS ORDERED: AZITHROMYCIN 500 MG VIAL IV SCH (09:00)
--- NOTE | 2024-04-11 13:45 | Hospitalist Progress Note ---
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 No reported fevers. Was noted to be hypoxic on RA upon arrival to ED with O2 sat of 88%. Normally on 3L NC only with exertion prior to arrival. Needed upto 4L at rest at ED. Patient has however noticed some mild SOB at rest over the past week or so. Not currently on chemotherapy 2/2 Keytruda-induced pneumonitis. Admitting CXR w/ suspected LLL pneumonia. 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 Last chemotherapy back in January 2024 [Alimta, carboplatin and Keytruda every 21 days]. Started Bactrim for PJP prophylaxis on 03/05/24. Currently on daily prednisone therapy given her history of Keytruda-induced pneumonitis. Was started on prednisone 60mg daily initially, now slowly tapered down to 30mg daily since 03/24/24. Has been on daily oral prednisone therapy since 02/21/24. continue w/ OP schedule of prednisone. MRSA neg. Resp biofire +ve for Influenza A, c/w tamiflu x total 5 days. Hold bactrim while on active antibiotic treatment. c/w zosyn, likely obstructive vs superimposed bacterial pneumonia Pulm consult, appreciate recs. Continue prednisone, PPI, Trelegy inhaler, tamiflu. PRN Duonebs for SOB/wheez ing. Utilize ISP as able. Attempt to wean resting O2 requirement as able. c/w budesonide neb, perforomist neb, hypertonic saline neb. Tobacco use disorder: Currently smokes 2 cigarettes/day. Used to smoke 2ppd. Denies need for nicotine patch at this time. Smoking cessation encouraged. Bipolar 1 disorder: Chronic, stable. Continue Lybalvi and lamotrigine. DVT Prophylaxis: SQ Heparin Code Status: FULL CODE PCP: Renetta Naidu, DO Admission and Anticipated Discharge Date Admission Date: April 09, 2024 Subjective Patient was seen and examined at bedside. Patient was lying in bed, on 2 L oxygen via nasal cannula, NAD, resting comfortably. Patient reports eating okay and moving bowels okay, patient reports cough improving and feeling better. Patient denies shortness of breath. Physical Exam Physical Exam: GENERAL: Alert and oriented x3. NAD, on 2L NC O2. HEENT: No pallor, no icterus. Pupils equal, round and reactive to light. Oral mucosa moist. NECK: No JVD, no neck masses. HEART: S1 and S2 heard. Regular rate and rhythm. No murmur, no gallop. RESPIRATORY SYSTEM: Normal AP diameter. No accessory muscle use. No wheezing, no crackles. decreased breath sounds Rt LL. ABDOMEN: Soft, bowel sounds present, nontender, no distention. CENTRAL NERVOUS SYSTEM: No facial droop. Speech is clear. Obeys simple commands. Moves extremities. EXTREMITIES: No edema, no erythema seen. Results & Data Results & Data Vital Signs (Past 12 Hours) Vital Signs Temp Pulse Resp BP Pulse Ox O2 Del Method O2 Flow Rate 04/11/24 11:34 36.7 C 98 H 18 126/78 93 Nasal Cannula 2 04/11/24 08:00 Nasal Cannula 2 04/11/24 07:43 36.6 C 91 H 18 116/69 90 Nasal Cannula 2 04/11/24 07:11 98 H 18 92 Nasal Cannula 2 04/11/24 02:59 36.7 C 88 18 107/57 L 93 Nasal Cannula (1) Pneumonia Laterality: right Lung location: lower lobe of lung Pneumonia type: due to unspecified organism Qualified Code(s): J18.9 - Pneumonia, unspecified organism
--- NOTE | 2024-04-11 15:33 | Pulmonology Progress Note ---
Date of Service April 11, 2024 Assessment & Plan (1) Consolidation of right lower lobe of lung: Plan: Right lower lobe atelectasis noted with debris in the right lower lobe bronchus. Suspect an element of bacterial pneumonia superimposed on influenza A. Agree with Zosyn. Continue azithromycin for atypical coverage for 5 days. Obtain urine Legionella antigen. Obtain sputum culture if able. MRSA screen negative. Patient relatively stable at this present time and will hold on bronchoscopy. Continue conservative mucociliary clearance strategies with hypertonic saline twice daily, Perforomist twice daily, nebulized budesonide twice daily and percussive chest physiotherapy 4 times a day. Repeat chest x-ray on Saturday. (2) Tobacco use disorder: Plan: Smoking cessation highly advised. (3) Metastatic primary lung cancer: Plan: Patient's chemoimmunotherapy currently on hold due to concerns of pulmonary toxicity per the patient and patient's family. Currently on 30 mg prednisone for pneumonitis. Will continue this regimen while in the hospital and she will need follow-up with her outpatient gear repairer and oncologist. Laterality: unspecified laterality Qualified Code(s): C34.90 - Malignant neoplasm of unspecified part of unspecified bronchus or lung (4) Influenza: Plan: Supportive care, Tamiflu and droplet precautions. Plan Will follow. Thank you. Admission and Anticipated Discharge Date Admission Date: April 09, 2024 Subjective No change in symptoms compared to yesterday. Still dyspneic with exertion. Occasional dry cough. No fevers, chills or night sweats. Review of Systems Review of Systems: All systems reviewed & are unremarkable except as noted in HPI & below Physical Exam Physical Exam: Constitutional: Patient appears to be of their stated age. Patient is in no apparent distress. Patient is well-developed. Eyes: Pupils are equal round and reactive to light. Conjunctivae are normal. Anicteric sclera. Ears nose, mouth and throat: No perioral cyanosis. Nasal cannula in place. Neck: Trachea is midline. Visual inspection is normal. Respiratory: Right lower lobe rhonchi. Minimal crackles in the left lower lobe. No significant tachypnea. Cardiovascular: Regular rate and rhythm. No murmurs. No edema. Gastrointestinal: Normal bowel sounds, soft, nontender and nondistended. No hepatosplenomegaly noted. Musculoskeletal: No cyanosis. Patient is able to move all extremities. Strength is 5 out of 5 in the upper and lower extremities. Skin: No rashes, warm dry and intact. Neurologic: No obvious focal neurological deficits seen. Psychiatric: Alert and oriented x3 with a euthymic affect. Results & Data Results & Data Vital Signs (Past 12 Hours) Vital Signs Temp Pulse Resp BP Pulse Ox O2 Del Method O2 Flow Rate 04/11/24 11:34 36.7 C 98 H 18 126/78 93 Nasal Cannula 2 04/11/24 08:00 Nasal Cannula 2 04/11/24 07:43 36.6 C 91 H 18 116/69 90 Nasal Cannula 2 04/11/24 07:11 98 H 18 92 Nasal Cannula 2 PG Care Time/CCT Total # of Minutes Spent Total Time Spent with Patient: Total time spent is greater than 50% in coordination of care (as documented) at patient's floor/unit and/or counseling patient: Coding Level of Care Code 96155 SUB INP/OBS CARE 2/35MIN Diagnoses Consolidation of right lower lobe of lung J18.1 Tobacco use disorder F17.200 Primary malignant neoplasm of lung metastatic to other site, unspecified laterality C34.90 Laterality: unspecified laterality Influenza J11.1
[2024-04-11] MEDS: AZITHROMYCIN 250 MG in SODIUM CHLORIDE 0.9% 250 ML IV SCH (16:15)
[2024-04-12 07:48] LABS: BUN Creatinine Ratio 10.4 (10-20); Creatinine Clr Calc Pharmacy 81.3 ml/min; Potassium 3.4 mmol/L (3.5-5.1)
[2024-04-12] MEDS: POTASSIUM CHLORIDE CRTAB 20 MEQ TABCR PO SCH (09:05)
--- NOTE | 2024-04-12 09:17 | XRay Report ---
EXAM: Radiographs of the Chest 2 Views INDICATION: Follow-up partial right lung collapse. TECHNIQUE: Frontal and lateral views of the chest. COMPARISON: No relevant prior studies available. FINDINGS: Lungs and pleural spaces: Minimally improved aeration of subsegmental right lower lobe collapse. New trace right pleural effusion. Heart: Stable prominent cardiac shadow. Mediastinum: Normal contour. Bones/joints: No change right paraspinal upper lobe mass. IMPRESSION: 1. Minimally improved aeration of subsegmental right lower lobe collapse. 2. New trace right pleural effusion. ACT 112: Negative or not required by law. Electronically signed by Radha Daily 04-12-2024 09:17 AM
--- NOTE | 2024-04-12 11:33 | Hospitalist Progress Note ---
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 No reported fevers. Was noted to be hypoxic on RA upon arrival to ED with O2 sat of 88%. Normally on 3L NC only with exertion prior to arrival. Needed upto 4L at rest at ED. Patient has however noticed some mild SOB at rest over the past week or so. Not currently on chemotherapy 2/2 Keytruda-induced pneumonitis. Admitting CXR w/ suspected LLL pneumonia. 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 Last chemotherapy back in January 2024 [Alimta, carboplatin and Keytruda every 21 days]. Started Bactrim for PJP prophylaxis on 03/05/24. Currently on daily prednisone therapy given her history of Keytruda-induced pneumonitis. Was started on prednisone 60mg daily initially, now slowly tapered down to 30mg daily since 03/24/24. Has been on daily oral prednisone therapy since 02/21/24. continue w/ OP schedule of prednisone. Repeat CXR 04/12: Minimally improved aeration of subsegmental right lower lobe collapse. New trace right pleural effusion. MRSA neg. Resp biofire +ve for Influenza A, c/w tamiflu x total 5 days. Hold bactrim while on active antibiotic treatment. c/w zosyn, likely obstructive vs superimposed bacterial pneumonia Pulm onboard, await further eval/recs. Continue prednisone, PPI, Trelegy inhaler, tamiflu. PRN Duonebs for SOB/wheezing. Utilize ISP as able. Attempt to wean resting O2 requirement as able. c/w budesonide neb, perforomist neb, hypertonic saline neb. Tobacco use disorder: Currently smokes 2 cigarettes/day. Used to smoke 2ppd. Denies need for nicotine patch at this time. Smoking cessation encouraged. Bipolar 1 disorder: Chronic, stable. Continue Lybalvi and lamotrigine. DVT Prophylaxis: SQ Heparin Code Status: FULL CODE PCP: Renetta Naidu, Admission and Anticipated Discharge Date Admission Date: April 09, 2024 Subjective Patient was seen and examined at bedside. Patient was sitting up in bed, on 2 L oxygen via nasal cannula, NAD, resting comfortably. Patient reports eating okay and moving bowels okay, patient reports cough improving and feeling better. Patient denies shortness of breath at rest but significantly dyspneic on exertion. Physical Exam Physical Exam: GENERAL: Alert and oriented x3. NAD, on 2L NC O2. HEENT: No pallor, no icterus. Pupils equal, round and reactive to light. Oral mucosa moist. NECK: No JVD, no neck masses. HEART: S1 and S2 heard. Regular rate and rhythm. No murmur, no gallop. RESPIRATORY SYSTEM: Normal AP diameter. No accessory muscle use. No wheezing, no crackles. decreased breath sounds Rt LL. ABDOMEN: Soft, bowel sounds present, nontender, no distention. CENTRAL NERVOUS SYSTEM: No facial droop. Speech is clear. Obeys simple commands. Moves extremities. EXTREMITIES: No edema, no erythema seen. Results & Data Results & Data Vital Signs (Past 12 Hours) Vital Signs Temp Pulse Resp BP Pulse Ox O2 Del Method O2 Flow Rate 04/12/24 11:17 36.4 C L 88 18 116/73 93 Nasal Cannula 04/12/24 08:08 36.3 C L 93 H 18 108/72 94 Nasal Cannula 2 04/12/24 08:00 Nasal Cannula 2 04/12/24 07:20 94 H 20 93 Nasal Cannula 2 04/12/24 03:56 36.6 C 76 16 101/63 96 Nasal Cannula 2 04/11/24 23:41 36.7 C 83 18 105/69 92 Nasal Cannula 2 (1) Pneumonia Laterality: right Lung location: lower lobe of lung Pneumonia type: due to unspecified organism Qualified Code(s): J18.9 - Pneumonia, unspecified organism
--- NOTE | 2024-04-12 12:08 | Communication Note ---
Date of Service: April 12, 2024 Attempted to evaluated patient today, but she was in the bathroom. Hospitalist note and nursing note reviewed. Reportedly her cough is improved, but she remains dyspneic with exertion. Chest x-ray reviewed from today with perhaps very slightly improved aeration of the right lower lobe. Will place the patient n.p.o. after midnight and hold prophylactic heparin for bronchoscopy by Dr. Skaggs tomorrow.
--- NOTE | 2024-04-13 07:58 | Pulmonology Progress Note ---
Date of Service April 13, 2024 Assessment & Plan (1) Consolidation of right lower lobe of lung: (2) Tobacco use disorder: Plan: Smoking cessation highly advised. (3) Metastatic primary lung cancer: Laterality: unspecified laterality Qualified Code(s): C34.90 - Malignant neoplasm of unspecified part of unspecified bronchus or lung (4) Influenza: Plan -- Right lower lobe atelectasis CT imaging reviewed and demonstrates RIGHT lower lobe atelectasis with debris in the RIGHT lower lobe bronchus. Chest x-ray from yesterday remains same. She has persistent dyspnea with exertion and minimally productive cough. She is rhonchorous on exam. Continue with antibiotic coverage for now. Patient has not been very successful with pulmonary toileting including budesonide, performance, and hypertonic saline. She is using chest PT as well. Patient would benefit from bronchoscopic evaluation for diagnostic and therapeutic purposes. I did review the risks, benefits, and alternatives with the patient. She is agreeable and moving forward. 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 Currently on 30 mg prednisone for pneumonitis. Will continue this regimen while in the hospital and she will need follow-up with her outpatient engineering agent and oncologist. --Influenza A positive On Tamiflu and droplet precautions --Current smoker [id number] smoking history On Trelegy at home Admission and Anticipated Discharge Date Admission Date: April 09, 2024 Supervising Physician Co-Signing Physician Notes I saw and evaluated the patient with Gerald Flowers PA-C, and agree with findings and plan as documented in the note. Patient seen and examined at bedside. No acute distress, no adverse events overnight Denies any chest pain Shortness of breath is improved. He was saturating 93-94% on 3 L nasal cannula. Denies any hemoptysis Constitutional: No acute distress HEENT: EOMI, PERRLA Respiratory system: Decreased air entry bilaterally, no wheeze, no rhonchi, positive crackles bilaterally more on the right lower side CVS: S1-S2 positive Abdomen: Soft, nontender, nondistended, positive bowel sounds x4 Extremities: +2 pulses bilaterally radialis/ dorsalis pedis, no cyanosis, no edema Neuro: Awake alert oriented x3 Psych: Normal mood and affect G/U: No Maldonado Plan: For bronchoscopy today to rule out endobronchial lesion on the right lower side versus mucous plugging Risk and benefit of the procedure explained to the patient in depth. Patient understands and wants to go ahead with the procedures Consent signed, witnessed and put in the chart Continue with antibiotics Continue with PJP prophylaxis while she is on prednisone > 20 mg on a daily basis Please note the above document was generated using voice recognition software. It may contain grammatical, syntax or spelling errors.Any formal questions or concerns about the content, text or information contained within the body of this dictation should be directly addressed to the provider for clarification. Subjective Patient was seen and evaluated bedside. She continues to utilize 2 L nasal cannula. She does report ongoing dyspnea on exertion which she reports had been present prior to hospitalization. She does have a cough, but reports difficulty clearing her secretions. No chest pain or palpitations. No hemoptysis. Review of Systems Review of Systems: As per HPI Physical Exam Physical Exam: VITAL SIGNS Vital signs and nursing notes were reviewed. GENERAL 48-year-old female appearing her stated age who is in no acute distress. Communicates well with provider and answers questions appropriately. SKIN Without rashes or lesions. NOSE Midline and without cyanosis. MOUTH/OROPHARYNX Without perioral cyanosis. NECK Neck with FROM. LUNGS Chest wall evaluation demonstrates normal chest wall A:P diameter. Auscultation reveals coarse breath sounds at the bases. CARDIAC RRR with S1/S2. No murmur, rubs, or gallops appreciated. PSYCH A&Ox3 and cooperates fully with examiner. Pt is very pleasant and interacts well with examiner. Results & Data Results & Data Vital Signs (Past 12 Hours) Vital Signs Temp Pulse Resp BP Pulse Ox O2 Del Method O2 Flow Rate 04/13/24 07:05 90 20 94 Nasal Cannula 2 04/13/24 03:57 36.4 C L 76 18 100/64 97 Nasal Cannula 2 04/12/24 23:30 36.5 C 84 18 106/66 97 Nasal Cannula 2 04/12/24 21:01 36.7 C 97 H 18 138/82 94 Nasal Cannula 2 04/12/24 20:05 96 H 18 93 Nasal Cannula 2 PG Care Time/CCT Total # of Minutes Spent Total Time Spent with Patient: Total time spent is greater than 50% in coordination of care (as documented) at patient's floor/unit and/or counseling patient: Coding Level of Care Code 93031 SUB INP/OBS CARE 50MIN Diagnoses Consolidation of right lower lobe of lung J18.1 Tobacco use disorder F17.200 Primary malignant neoplasm of lung metastatic to other site, unspecified laterality C34.90 Laterality: unspecified laterality Influenza J11.1
[2024-04-13 09:14] LABS: BUN Creatinine Ratio 12.4 (10-20); Calcium 9.1 mg/dl (8.6-10.3); Creatinine Clr Calc Pharmacy 70.3 ml/min; Magnesium 2.1 mg/dl (1.7-2.4); Potassium 3.7 mmol/L (3.5-5.1)
--- NOTE | 2024-04-13 10:41 | Pre Anesthesia Assessment ---
Date of Service April 13, 2024 Pre Sedation Assessment Vital Signs Temp Pulse Resp BP Pulse Ox O2 Del Method O2 Flow Rate 04/13/24 10:07 81 14 109/70 95 Room Air, Nasal Cannula 3 04/13/24 08:00 Nasal Cannula 2 04/13/24 07:57 36.6 C 81 18 104/68 93 Nasal Cannula 2 04/13/24 07:05 90 20 94 Nasal Cannula 2 04/13/24 03:57 36.4 C L 76 18 100/64 97 Nasal Cannula 2 04/12/24 23:30 36.5 C 84 18 106/66 97 Nasal Cannula 2 04/12/24 21:01 36.7 C 97 H 18 138/82 94 Nasal Cannula 2 04/12/24 20:05 96 H 18 93 Nasal Cannula 2 04/12/24 19:33 Nasal Cannula 2 04/12/24 15:36 36.5 C 97 H 18 115/76 96 Nasal Cannula 2 04/12/24 11:17 36.4 C L 88 18 116/73 93 Nasal Cannula Pre-Sedation Airway Assessment Smoking Status: Current every day smoker Hx Sleep Apnea: No Short, Thick Neck: No Thyromental Distance: > or= 3.5 Finger Breadths Oral Cavity: + Dental Abnormalities Mallampati Class: III ASA: ASA3 NPO Status Date of Last Intake of Fluids: 04/12/24 Time of Last Intake of Fluids: 20:00 Date of Last Intake of Solid Food: 04/12/24 Time of Last Intake of Solid Foods: 20:00 Procedure Planning Contraindications for Sedation: none Current Medications Reviewed: Yes Notes The planned sedation has been discussed with the patient. Informed Consent was obtained. I have identified the patient, determined the appropriateness of sedation and have assessed the patient immediately prior to the procedure. All medicine(s) and interventions are by my order.
--- NOTE | 2024-04-13 10:41 | History & Physical Bridge Note ---
Date of Service April 13, 2024 History & Physical Bridge Note I have examined the patient, reviewed the History & Physical and in the interval since the performance of the History & Physical I have noted the following changes of clinical significance: no changes noted
[2024-04-13] MEDS: MIDAZOLAM HCL 5 MG/ML 1 ML VIAL ONE (11:50)
[2024-04-13] MEDS: fentaNYL citrate PF 100 MCG/2 ML VIAL ONE (11:50)
--- NOTE | 2024-04-13 12:06 | Procedure Note ---
Procedure Note Date of Service April 13, 2024 PREOPERATIVE DIAGNOSIS: Right lower lobe collapse POSTOPERATIVE DIAGNOSIS: Mucous plugging of the right lower lobe PROCEDURE PERFORMED: Flexible fiberoptic bronchoscopy with BAL and clearing of airways COMPLICATIONS: None. INDICATION: Right lower lobe collapse PROCEDURE: After obtaining an informed consent, the patient was brought to the Bronchoscopy Suite. The patient had appropriate oxygen, blood pressure, heart rate, and respiratory rate monitoring applied and monitored continuously throughout the procedure. Supplemental oxygen via nasal cannula as per nursing records was applied to the nasopharynx with adequate saturations achieved. Topical anesthesia with nebulized 1% lidocaine was achieved. Subsequent to this, the patient was premedicated with 4 mg of midazolam and 100 mcg of fentanyl. Upper Airway: The oropharynx and larynx were well visualized and showed mild erythema, mild edema, otherwise negative. The nasal passage was tight for bronchoscope to pass. Bite-block was used and bronchoscope was passed through orally. There was normal vocal cord motion without masses or lesions. Additional topical anesthesia with 1% lidocaine was applied to the trachea and porter. The trachea appeared normal.The bronchoscope was then advanced through the porter, which was sharp. There was some endobronchial laceration on the posterior aspect of Right main going into RBI. (Looked similar to as if trauma caused by endotracheal suctionioning when being intubated.) the scope was then advanced into the right main stem, RBI was full of mucous plug. It was thick grayish-yellow in color and difficult to suction out. I had to take the scope out multiple times to clear the mucous plug. 20%, 5ml Mucomyst was instilled in the mucous plug. After clearing the mucous plugs each segment, subsegement in the right upper lobe, right middle lobe and right lower lobe were visualized. There were no other findings including evidence of mass, anatomic distortions, or hemorrhage. The bronchoscope was subsequently withdrawn and advanced into the left mainstem. Again, each segment and subsegment was well visualized. No specific masses or other lesions were identified throughout the tracheobronchial tree on the left. There was moderate amount thick greyish yellow secretion which were suctioned out. The bronchoscope was then wedged in the RLL and bronchoalveolar lavage samples were obtained. 120 ml of saline was instilled and 50 ml of fluid was aspirated back.The bronchoscope was withdrawn and the area was suctioned clear. The bronchoscope was then withdrawn to the mainstem. The area was suctioned clear. The bronchoscope was then withdrawn. The patient tolerated the procedure well without evidence of desaturation or complications. Bronchoalveolar lavage samples were sent for cell count, Gram stain and bacterial culture, AFB culture and smear, fungal culture and smear and cytology. Recommendations: Follow-up micro and cytology Follow-up chest x-ray Please note the above document was generated using voice recognition software. It may contain grammatical, syntax or spelling errors.Any formal questions or concerns about the content, text or information contained within the body of this dictation should be directly addressed to the provider for clarification. [facility] [place] Procedure Codes (Charges) Pulmonary/Thoracic Procedure 1: Pulmonary and Thoracic: 62032 Dx bronchoscopy/BAL Procedure 2: Pulmonary and Thoracic: 67102 Bronchoscopy, clear airways Sedation/Anesthesia Procedure 1: Sedation/Anesthesia: 82597 Mod Sedation by the same physician;Init15 Min Child Age 5 & Up Coding CPT Codes Sedation/Anesthesia - Sedation/Anesthesia: 12389 Mod Sedation by the same physician;Init15 Min Child Age 5 & Up ([id number]) Pulmonary/Thoracic - Pulmonary and Thoracic: 76976 Dx bronchoscopy/BAL ([id number]) Pulmonary/Thoracic - Pulmonary and Thoracic: 15639 Bronchoscopy, clear airways ([id number]) Additional Codes Date of Service ([facility].SURGERY)
--- NOTE | 2024-04-13 12:44 | XRay Report ---
XR chest 1V portable CLINICAL HISTORY: Post Bronchoscopy COMPARISON STUDY: 04/09/2024 FINDINGS: Stable cardiomegaly without pulmonary vascular congestion. Inspiration is shallow and there is increased stranding opacity at the right base. No pleural effusion or pneumothorax. IMPRESSION: 1. No pneumothorax. 2. Likely atelectasis right lung base. Follow-up as clinically indicated. ACT 112: Negative or not required by law. Electronically signed by: Adair Cortes M.D. 04/13/2024 12:43 PM
[2024-04-13 14:41] LABS: Fluid Mono/Macrophage 42 %; Lymphocyte Body Fluid Man 12 %; Neutrophil Body Fluid Man 46 %
--- NOTE | 2024-04-13 15:20 | Electrocardiogram Report ---
Test Reason : Blood Pressure : */* mmHG Vent. Rate : 82 BPM Atrial Rate : 82 BPM P-R Int : 132 ms QRS Dur : 76 ms QT Int : 346 ms P-R-T Axes : 59 36 36 degrees QTcB Int : 404 ms Normal sinus rhythm Normal ECG When compared with ECG of 09-Apr-2024 16:19, No significant change was found Confirmed by Emil Salazar ([id number]) on 04/13/2024 3:20:02 PM Referred By: Yogi Muñoz Confirmed By: Emil Salazar
--- NOTE | 2024-04-13 15:51 | Hospitalist Progress Note ---
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 No reported fevers. Was noted to be hypoxic on RA upon arrival to ED with O2 sat of 88%. Normally on 3L NC only with exertion prior to arrival. Needed upto 4L at rest at ED. Patient has however noticed some mild SOB at rest over the past week or so. Not currently on chemotherapy 2/2 Keytruda-induced pneumonitis. Admitting CXR w/ suspected LLL pneumonia. CT Chest captain room service: revealed new complete atelectasis/consolidation of the RLL suggesting possible aspiration/pneumonia. Last chemotherapy back in January 2024 [Alimta, carboplatin and Keytruda every 21 days]. Started Bactrim for PJP prophylaxis on 03/05/24. Currently on daily prednisone therapy given her history of Keytruda-induced pneumonitis. Was started on prednisone 60mg daily initially, now slowly tapered down to 30mg daily since 03/24/24. Has been on daily oral prednisone therapy since 02/21/24. continue w/ OP schedule of prednisone. Repeat CXR 04/12: Minimally improved aeration of subsegmental right lower lobe collapse. New trace right pleural effusion. MRSA neg. Resp biofire +ve for Influenza A, c/w tamiflu x total 5 days. c/w zosyn, likely obstructive vs superimposed bacterial pneumonia Pulm onboard, c/w bactrim, s/p Flexible fiberoptic bronchoscopy with BAL and clearing of airways 04/13 ---> f/u on bronchoscopic culture reports. Continue prednisone, PPI, Trelegy inhaler, tamiflu. PRN Duonebs for SOB/wheezing. Utilize ISP as able. Attempt to wean resting O2 requirement as able. c/w budesonide neb, perforomist neb, hypertonic saline neb. Tobacco use disorder: Currently smokes 2 cigarettes/day. Used to smoke 2ppd. Denies need for nicotine patch at this time. Smoking cessation encouraged. Bipolar 1 disorder: Chronic, stable. Continue Lybalvi and lamotrigine. DVT Prophylaxis: SQ Heparin on hold for bronchoscopy. Code Status: FULL CODE PCP: Renetta Naidu, Admission and Anticipated Discharge Date Admission Date: April 09, 2024 Subjective Patient was seen and examined at bedside. Patient was sitting up in bed, on 2 L oxygen via nasal cannula, NAD, resting comfortably. Patient reports eating okay and moving bowels okay, patient reports cough improving and feeling better. Patient denies shortness of breath at rest but significantly dyspneic on exertion. Physical Exam Physical Exam: GENERAL: Alert and oriented x3. NAD, on 2L NC O2. HEENT: No pallor, no icterus. Pupils equal, round and reactive to light. Oral mucosa moist. NECK: No JVD, no neck masses. HEART: S1 and S2 heard. Regular rate and rhythm. No murmur, no gallop. RESPIRATORY SYSTEM: Normal AP diameter. No accessory muscle use. No wheezing, no crackles. decreased breath sounds Rt LL>LLL. ABDOMEN: Soft, bowel sounds present, nontender, no distention. CENTRAL NERVOUS SYSTEM: No facial droop. Speech is clear. Obeys simple commands. Moves extremities. EXTREMITIES: No edema, no erythema seen. Results & Data Results & Data Vital Signs (Past 12 Hours) Vital Signs Temp Pulse Pulse Resp BP BP BP 04/13/24 12:32 36.4 C L 93 H 18 107/70 04/13/24 12:00 104 H 16 98/72 L 04/13/24 11:45 04/13/24 11:45 36.6 C 103 H 15 104/66 04/13/24 11:45 118 H 16 104/58 L 04/13/24 11:40 121 H 12 163/98 H 04/13/24 11:35 111 H 14 98/65 L 04/13/24 11:30 18 110/72 04/13/24 11:25 95 H 19 121/79 04/13/24 10:07 81 14 109/70 04/13/24 08:00 04/13/24 07:57 36.6 C 81 18 104/68 04/13/24 07:05 90 20 04/13/24 03:57 36.4 C L 76 18 100/64 Pulse Ox O2 Del Method O2 Flow Rate 04/13/24 12:32 92 Nasal Cannula 4 04/13/24 12:00 91 Oxymask 4 04/13/24 11:45 Oxymask 04/13/24 11:45 92 Oxymask 4 04/13/24 11:45 94 Oxymask 04/13/24 11:40 94 Oxymask 04/13/24 11:35 95 Oxymask 04/13/24 11:30 95 Oxymask 04/13/24 11:25 97 Oxymask 10 04/13/24 10:07 95 Room Air, Nasal Cannula 3 04/13/24 08:00 Nasal Cannula 2 04/13/24 07:57 93 Nasal Cannula 2 04/13/24 07:05 94 Nasal Cannula 2 04/13/24 03:57 97 Nasal Cannula 2 (1) Pneumonia Laterality: right Lung location: lower lobe of lung Pneumonia type: due to unspecified organism Qualified Code(s): J18.9 - Pneumonia, unspecified organism
[2024-04-13] MEDS: ACETYLCYSTEINE 20% INHAL SOLN 4ML ***DISPENSED BY RESP. INH SCH ×2 (16:18→19:26)
[2024-04-13] MEDS: SULFAMETHOXAZOLE/TRIMETHOPRIM DS 800/160MG TAB PO SCH (16:53)
[2024-04-13] MEDS: ALBUT/IPRATROP 3MG/0.5MG NEB 3 ML VIAL NEB PRN (19:26)
[2024-04-14] MEDS: PROMETHAZINE 6.25 MG/50.25 ML BAG IV PRN (05:21)
[2024-04-14 07:58] LABS: Hematocrit (blood only) 37.4 % (37.0-47.0); Hemoglobin 12.3 g/dl (12.0-16.0); Mean Corpuscular Hgb Conc 32.9 g/dL (32.0-36.0); Mean Corpuscular Volume 103.3 fL (80.0-100.0); Mean Platelet Volume 10.2 fL (9.4-12.4); Platelet Count 146 K/uL (130-400); RDW Coefficient of Variation 15.9 % (11.5-14.5); RDW Standard Deviation 61.1 fL (36.4-46.3); Red Blood Count 3.62 M/uL (4.20-5.40); White Blood Count 10.86 K/ul (4.8-10.8)
[2024-04-14 08:01] LABS: BUN Creatinine Ratio 10.6 (10-20); Calcium 8.8 mg/dl (8.6-10.3); Creatinine Clr Calc Pharmacy 66.6 ml/min; Potassium 4.2 mmol/L (3.5-5.1)
--- NOTE | 2024-04-14 08:50 | XRay Report ---
EXAM: XR chest 1V portable CLINICAL HISTORY: f/u TECHNIQUE: An X-ray image of the chest is obtained in AP projection. COMPARISON: comparison with the previous study dated 04/12/2024. FINDINGS: Pulmonary Parenchyma: Complete resolution of the previously noted right-sided pleural effusion. Bilateral mainly basal increase broncho vascular markings suggesting lung congestion. No evidence of consolidation, collapse, or focal opacities. No pulmonary nodules are identified. No evidence of pleural effusion or pleural thickening. Heart and Mediastinum: Heart size and shape are normal. No mediastinal widening or masses. No hilar or mediastinal lymphadenopathy. Bony Thorax: Bony thorax appears intact without fractures or deformities. Soft Tissues: Soft tissues overlying the chest wall are unremarkable. IMPRESSION: 1. Complete resolution of the previously noted right-sided pleural effusion. 2. Bilateral mainly basal increase broncho vascular markings suggesting lung congestion. However clinical and lab correlation is advised to rule out pulmonary infection. Electronically signed by Paulo Feng 04-14-2024 08:50 AM
--- NOTE | 2024-04-14 09:22 | Pulmonology Progress Note ---
Date of Service April 14, 2024 Assessment & Plan (1) Consolidation of right lower lobe of lung: (2) Tobacco use disorder: Plan: Smoking cessation highly advised. (3) Metastatic primary lung cancer: Laterality: unspecified laterality Qualified Code(s): C34.90 - Malignant neoplasm of unspecified part of unspecified bronchus or lung (4) Influenza: Plan -- Right lower lobe atelectasis CT imaging reviewed and demonstrates RIGHT lower lobe atelectasis with debris in the RIGHT lower lobe bronchus. Chest x-ray this morning looks improved. She still somewhat rhonchorous on exam. Complete antibiotic coverage. Continue with pulmonary toileting. Thankfully, the endoscopy does appear to have resolved her lower airway collapse. She had thick tenacious mucus plugging in the RIGHT lower lobe. 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 Currently on 30 mg prednisone for pneumonitis. 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 --Influenza A positive On Tamiflu and droplet precautions --Current smoker [id number] smoking history On Trelegy at home Admission and Anticipated Discharge Date Admission Date: April 09, 2024 Supervising Physician Co-Signing Physician Notes I saw and evaluated the patient with Gerald Flowers PA-C, and agree with findings and plan as documented in the note. Patient seen and examined at bedside. No acute distress, no adverse events overnight She stated she is feeling better compared to yesterday. No hemoptysis He was saturating 93% on 2 L nasal cannula with heart rate of 113 No chest pain Constitutional: No acute distress HEENT: EOMI, PERRLA Respiratory system: Decreased air entry bilaterally, no wheeze, no rhonchi, positive crackles bilaterally more on the right lower side CVS: S1-S2 positive, no murmurs or gallops, positive tachycardia Abdomen: Soft, nontender, nondistended, positive bowel sounds x4 Extremities: +2 pulses bilaterally radialis/ dorsalis pedis, no cyanosis, no edema Neuro: Awake alert oriented x3 Psych: Normal mood and affect G/U: No Maldonado Plan: Chest x-ray from today shows improvement in the right lower lobe atelectasis. Continue with Mucomyst as well as hypertonic saline nebulized I think she would benefit from this regimen even at home Flutter valve to be added to her regimen Continue with PJP prophylaxis while she is on prednisone > 20 mg on a daily basis Continue with antibiotics, QTc 409 No further recommendation from pulmonary perspective, will sign off Please call directly with any questions Please note the above document was generated using voice recognition software. It may contain grammatical, syntax or spelling errors.Any formal questions or concerns about the content, text or information contained within the body of this dictation should be directly addressed to the provider for clarification. Subjective Patient seen and evaluated at bedside. She is saturating well on room air currently. She does still report some dyspnea with exertion. Otherwise, she is feeling better Review of Systems 2 Review of Systems: As per subjective. Physical Exam 2 Physical Exam: Constitutional: Patient appears to be of their stated age. Patient is in no apparent distress. Patient is well-developed. Eyes: Pupils are equal round and reactive to light. Conjunctivae are normal. Anicteric sclera. Ears nose, mouth and throat: No perioral cyanosis. Nasal cannula in place. Neck: Trachea is midline. Visual inspection is normal. Respiratory: Right lower lobe rhonchi. Minimal crackles in the left lower lobe. No significant tachypnea. Cardiovascular: Regular rate and rhythm. No murmurs. No edema. Gastrointestinal: Normal bowel sounds, soft, nontender and nondistended. No hepatosplenomegaly noted. Musculoskeletal: No cyanosis. Patient is able to move all extremities. Strength is 5 out of 5 in the upper and lower extremities. Skin: No rashes, warm dry and intact. Neurologic: No obvious focal neurological deficits seen. Psychiatric: Alert and oriented x3 with a euthymic affect. Results & Data Results & Data Vital Signs (Past 12 Hours) Vital Signs Temp Pulse Pulse Resp BP Pulse Ox O2 Del Method 04/14/24 08:58 Room Air, Nasal Cannula 04/14/24 07:33 37.3 C 132 H 18 106/67 90 Room Air 04/14/24 07:18 117 H 04/14/24 07:00 126 H 18 91 Room Air 04/14/24 03:56 102 H 04/14/24 02:47 36.9 C 100 H 16 109/66 92 Nasal Cannula 04/13/24 23:07 36.5 C 104 H 17 108/62 94 Nasal Cannula O2 Flow Rate 04/14/24 08:58 2 04/14/24 07:33 04/14/24 07:18 04/14/24 07:00 04/14/24 03:56 04/14/24 02:47 04/13/24 23:07 Laboratory Results 04/14/24 07:17 04/14/24 07:17 PG Care Time/CCT Total # of Minutes Spent Total Time Spent with Patient: Total time spent is greater than 50% in coordination of care (as documented) at patient's floor/unit and/or counseling patient: Coding Level of Care Code 71259 SUB INP/OBS CARE 2/35MIN Diagnoses Consolidation of right lower lobe of lung J18.1 Tobacco use disorder F17.200 Primary malignant neoplasm of lung metastatic to other site, unspecified laterality C34.90 Laterality: unspecified laterality Influenza J11.1
--- NOTE | 2024-04-14 14:21 | Hospitalist Progress Note ---
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 No reported fevers. Was noted to be hypoxic on RA upon arrival to ED with O2 sat of 88%. Normally on 3L NC only with exertion prior to arrival. Needed upto 4L at rest at ED. Patient has however noticed some mild SOB at rest over the past week or so. Not currently on chemotherapy 2/2 Keytruda-induced pneumonitis. Admitting CXR w/ suspected LLL pneumonia. 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 Last chemotherapy back in January 2024 [Alimta, carboplatin and Keytruda every 21 days]. Started Bactrim for PJP prophylaxis on 03/05/24. Currently on daily prednisone therapy given her history of Keytruda-induced pneumonitis. Was started on prednisone 60mg daily initially, now slowly tapered down to 30mg daily since 03/24/24. Has been on daily oral prednisone therapy since 02/21/24. continue w/ OP schedule of prednisone. Repeat CXR 04/12: Minimally improved aeration of subsegmental right lower lobe collapse. New trace right pleural effusion. MRSA neg. Resp biofire +ve for Influenza A, c/w tamiflu x total 5 days. c/w zosyn, likely obstructive vs superimposed bacterial pneumonia Pulm onboard, c/w bactrim, s/p Flexible fiberoptic bronchoscopy with BAL and clearing of airways 04/13 ---> f/u on final bronchoscopic culture reports. so far has been neg. Continue prednisone, PPI, Trelegy inhaler, tamiflu. PRN Duonebs for SOB/wheezing. Utilize ISP as able. Attempt to wean resting O2 requirement as able. c/w budesonide neb, perforomist neb, hypertonic saline neb. d/w pulm, plan for 7d atb rx, c/w mucinex, fluttervalve, mucomyst and hypertonic saline nebs at home. Tobacco use disorder: Currently smokes 2 cigarettes/day. Used to smoke 2ppd. Denies need for nicotine patch at this time. Smoking cessation encouraged. Bipolar 1 disorder: Chronic, stable. Continue Lybalvi and lamotrigine. DVT Prophylaxis: SQ Heparin Code Status: FULL CODE PCP: Renetta Naidu DO Dispo: pt tachy today, RN advised to titrate O2, will add small dose metoprolol, f/u on final c/s culture reports. likely dc duncan. Admission and Anticipated Discharge Date Admission Date: April 09, 2024 Subjective Patient was seen and examined at bedside. Patient was lying in bed, on RA, NAD, resting comfortably. Patient reports eating okay and moving bowels okay. Pt reports some improvement in MATHIAS, but is tachy today. Physical Exam Physical Exam: GENERAL: Alert and oriented x3. NAD, on RA HEENT: No pallor, no icterus. Pupils equal, round and reactive to light. Oral mucosa moist. NECK: No JVD, no neck masses. HEART: S1 and S2 heard. Regular rate and rhythm. HR in 120s. No murmur, no gallop. RESPIRATORY SYSTEM: Normal AP diameter. No accessory muscle use. No wheezing, no crackles. improved breath sounds rll. ABDOMEN: Soft, bowel sounds present, nontender, no distention. CENTRAL NERVOUS SYSTEM: No facial droop. Speech is clear. Obeys simple commands. Moves extremities. EXTREMITIES: No edema, no erythema seen. Results & Data Results & Data Vital Signs (Past 12 Hours) Vital Signs Temp Pulse Pulse Resp BP Pulse Ox O2 Del Method 04/14/24 10:57 37.2 C 123 H 18 115/76 92 Nasal Cannula 04/14/24 08:58 Room Air, Nasal Cannula 04/14/24 07:33 37.3 C 132 H 18 106/67 90 Room Air 04/14/24 07:18 117 H 04/14/24 07:00 126 H 18 91 Room Air 04/14/24 03:56 102 H 04/14/24 02:47 36.9 C 100 H 16 109/66 92 Nasal Cannula O2 Flow Rate 04/14/24 10:57 2 04/14/24 08:58 2 04/14/24 07:33 04/14/24 07:18 04/14/24 07:00 04/14/24 03:56 04/14/24 02:47 (1) Pneumonia Laterality: right Lung location: lower lobe of lung Pneumonia type: due to unspecified organism Qualified Code(s): J18.9 - Pneumonia, unspecified organism
[2024-04-14] MEDS: METOPROLOL SUCC 25MG EXT REL TAB PO SCH (14:58)
[2024-04-15 08:18] LABS: Hematocrit (blood only) 35.6 % (37.0-47.0); Hemoglobin 11.9 g/dl (12.0-16.0); Mean Corpuscular Hemoglobin 34.8 pg (25.0-34.0); Mean Corpuscular Hgb Conc 33.4 g/dL (32.0-36.0); Mean Corpuscular Volume 104.1 fL (80.0-100.0); Mean Platelet Volume 10.3 fL (9.4-12.4); Platelet Count 151 K/uL (130-400); RDW Coefficient of Variation 15.8 % (11.5-14.5); RDW Standard Deviation 60.7 fL (36.4-46.3); Red Blood Count 3.42 M/uL (4.20-5.40); White Blood Count 7.75 K/ul (4.8-10.8)
[2024-04-15 09:01] LABS: BUN Creatinine Ratio 12.6 (10-20); Calcium 8.9 mg/dl (8.6-10.3); Creatinine Clr Calc Pharmacy 65.9 ml/min; Magnesium 2.1 mg/dl (1.7-2.4); Phosphorus 3.3 mg/dl (2.5-4.9); Potassium 3.3 mmol/L (3.5-5.1)
--- NOTE | 2024-04-15 13:14 | Pulmonology Progress Note ---
Date of Service April 15, 2024 Assessment & Plan (1) Consolidation of right lower lobe of lung: (2) Tobacco use disorder: Plan: Smoking cessation highly advised. (3) Metastatic primary lung cancer: Laterality: unspecified laterality Qualified Code(s): C34.90 - Malignant neoplasm of unspecified part of unspecified bronchus or lung (4) Influenza: Plan -- Right lower lobe atelectasis CT imaging reviewed and demonstrates RIGHT lower lobe atelectasis with debris in the RIGHT lower lobe bronchus. Chest x-ray this morning looks improved. She still somewhat rhonchorous on exam. Complete antibiotic coverage. Continue with pulmonary toileting. Thankfully, the endoscopy does appear to have resolved her lower airway collapse. She had thick tenacious mucus plugging in the RIGHT lower lobe. 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 Currently on 30 mg prednisone for pneumonitis. 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 --Influenza A positive On Tamiflu and droplet precautions --Current smoker [id number] smoking history On Trelegy at home Plan: Continue with Mucomyst as well as hypertonic saline nebulized, I think she would benefit from this regimen even at home Continue with flutter valve Continue with PJP prophylaxis while she is on prednisone > 20 mg on a daily basis Continue with antibiotics, QTc 409 No further recommendation from pulmonary perspective, will sign off Please call directly with any questions Please note the above document was generated using voice recognition software. It may contain grammatical, syntax or spelling errors.Any formal questions or concerns about the content, text or information contained within the body of this dictation should be directly addressed to the provider for clarification. Admission and Anticipated Discharge Date Admission Date: April 09, 2024 Subjective Patient seen and examined at bedside. No acute distress, no dose events overnight She was walking around in the room. Saturation was 91-92% on room air She states she is coughing up and bringing up phlegm. No hemoptysis Has been compliant with nebulizer treatments. Review of Systems 2 Review of Systems: All systems reviewed & are unremarkable except as noted in Subjective Physical Exam 2 Physical Exam: Constitutional: No acute distress HEENT: EOMI, PERRLA Respiratory system: Decreased air entry bilaterally, no wheeze, no rhonchi, p ositive crackles bilateral lower lobes CVS: S1-S2 positive, no murmurs or gallops, Abdomen: Soft, nontender, nondistended, positive bowel sounds x4 Extremities: +2 pulses bilaterally radialis/ dorsalis pedis, no cyanosis, no edema Neuro: Awake alert oriented x3 Psych: Normal mood and affect G/U: No Maldonado Skin: no rashes, warm and dry Lymphatic: no cervical or axillary lymphadenopathy Results & Data Results & Data Vital Signs (Past 12 Hours) Vital Signs Temp Pulse Pulse Resp BP Pulse Ox O2 Del Method 04/15/24 11:11 36.6 C 75 18 113/71 97 Room Air 04/15/24 08:21 88 20 92 Nasal Cannula 04/15/24 07:43 83 04/15/24 07:18 36.7 C 92 H 18 103/66 92 Nasal Cannula 04/15/24 07:18 Nasal Cannula 04/15/24 02:57 36.6 C 93 H 20 106/68 94 Nasal Cannula O2 Flow Rate 04/15/24 11:11 04/15/24 08:21 1 04/15/24 07:43 04/15/24 07:18 1 04/15/24 07:18 04/15/24 02:57 1 Laboratory Results 04/15/24 07:56 04/15/24 07:55 PG Care Time/CCT Total # of Minutes Spent Total Time Spent with Patient: Total time spent is greater than 50% in coordination of care (as documented) at patient's floor/unit and/or counseling patient: Coding Level of Care Code 96879 SUB INP/OBS CARE 2/35MIN Diagnoses Consolidation of right lower lobe of lung J18.1 Tobacco use disorder F17.200 Primary malignant neoplasm of lung metastatic to other site, unspecified laterality C34.90 Laterality: unspecified laterality Influenza J11.1
--- NOTE | 2024-04-15 17:55 | Hospitalist Progress Note ---
Date of Service April 15, 2024 Assessment & Plan (1) Pneumonia: Plan Ms. 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 Was noted to be hypoxic on RA upon arrival to ED with O2 sat of 88%. Normally on 3L NC only with exertion prior to arrival. Needed upto 4L at rest at ED. Last chemotherapy back in January 2024 [Alimta, carboplatin and Keytruda every 21 days]. Started Bactrim for PJP prophylaxis on 03/05/24. Currently on daily prednisone therapy given her history of Keytruda-induced pneumonitis. Was started on prednisone 60mg daily initially, now slowly tapered down to 30mg daily since 03/24/24. Has been on daily oral prednisone therapy since 02/21/24. continue w/ OP schedule of prednisone. Repeat CXR 04/12: Minimally improved aeration of subsegmental right lower lobe collapse. New trace right pleural effusion. MRSA neg. Resp biofire +ve for Influenza A, c/w tamiflu x total 5 days. c/w zosyn, likely obstructive vs superimposed bacterial pneumonia Pulm onboard, c/w bactrim, s/p Flexible fiberoptic bronchoscopy with BAL and clearing of airways 04/13 ---> f/u on final bronchoscopic culture reports. so far has been neg. Continue prednisone, PPI, Trelegy inhaler, tamiflu. PRN Duonebs for SOB/wheezing. Utilize ISP as able. Attempt to wean resting O2 requirement as able. c/w budesonide neb, perforomist neb, hypertonic saline neb. d/w pulm, plan for 7d atb rx, c/w mucinex, fluttervalve, mucomyst and hypertonic saline nebs at home. 2 step for discharge Tobacco use disorder: Currently smokes 2 cigarettes/day. Used to smoke 2ppd. Denies need for nicotine patch at this time. Smoking cessation encouraged. Bipolar 1 disorder: Chronic, stable. Continue Lybalvi and lamotrigine. DVT Prophylaxis: SQ Heparin Code Status: FULL CODE PCP: Renetta Naidu, Dispo: pt codey today, RN advised to titrate O2, will add small dose metoprolol, f/u on final c/s culture reports. l Admission and Anticipated Discharge Date Admission Date: April 09, 2024 Subjective Some cough today but overall improved feels ready for discharge likely tomorrow Physical Exam Constitutional: WD/WN, vitals as above Respiratory: right sided rhonchi, otherwise clear Cardiovascular: RRR, no murmur, no edema Results & Data Results & Data Vital Signs (Past 12 Hours) Vital Signs Temp Pulse Pulse Resp BP Pulse Ox O2 Del Method 04/15/24 15:01 36.4 C L 79 18 114/73 95 Room Air 04/15/24 11:11 36.6 C 75 18 113/71 97 Room Air 04/15/24 08:21 88 20 92 Nasal Cannula 04/15/24 07:43 83 04/15/24 07:18 36.7 C 92 H 18 103/66 92 Nasal Cannula 04/15/24 07:18 Nasal Cannula O2 Flow Rate 04/15/24 15:01 04/15/24 11:11 04/15/24 08:21 1 04/15/24 07:43 04/15/24 07:18 1 04/15/24 07:18 Laboratory Results Short CBC 04/15/24 Range/Units 07:56 WBC 7.75 (4.8-10.8) K/ul Hgb 11.9 L (12.0-16.0) g/dl Hct 35.6 L (37.0-47.0) % Plt Count 151 (130-400) K/uL BMP 04/15/24 07:55 Sodium 141 Potassium 3.3 L D Chloride 106 Carbon Dioxide 29 BUN 12 Creatinine 0.95 Glucose 104 H Calcium 8.9 Medications Administered Home Medications Medication Instructions Recorded Confirmed Last Taken albuterol sulfate 90 mcg/actuation 2 inh inhalation Q6 PRN DYSPNEA OR 02/07/24 04/09/24 Unknown aerosol inhaler WHEEZING fluticasone fur. 200 mcg-umeclid 1 inh inhalation QAM 02/07/24 04/09/24 Unknown 62.5 mcg-vilant 25 mcg inhalat.powder (Trelegy Ellipta) folic acid 1 mg tablet 1 mg PO DAILY 02/07/24 04/09/24 Unknown lamotrigine 100 mg tablet 100 mg PO BID 02/07/24 04/09/24 Unknown olanzapine 20 mg-samidorphan 10 mg 1 tab PO HS 02/07/24 04/09/24 Unknown tablet (Lybalvi) pantoprazole 40 mg tablet,delayed 40 mg PO DAILY 02/07/24 04/09/24 Unknown release ondansetron HCl 8 mg tablet 8 mg PO Q8 PRN Nausea 04/09/24 04/09/24 Unknown prednisone 10 mg tablet 30 mg PO QAM 04/09/24 04/09/24 Unknown prochlorperazine maleate 10 mg 10 mg PO Q6 PRN Nausea 04/09/24 04/09/24 Unknown tablet sulfamethoxazole 800 1 tab PO 3XWK 04/09/24 04/09/24 Unknown mg-trimethoprim 160 mg tablet Active Medications Generic Name Dose Route Start Last Admin Trade Name Freq PRN Reason Stop Dose Admin Acetylcysteine 5 ml 04/13/24 19:00 04/15/24 07:14 Acetylcysteine 20% Inhal Soln 4ml Dispensed By Resp. INH 05/13/24 18:59 5 ml Q12R KERRY Administration Albuterol 3 ml 04/09/24 21:03 04/13/24 19:26 Albut/Ipratrop 3mg/0.5mg Neb 3 Ml Vial NEB 05/09/24 21:02 3 ml Q6R PRN Administration SOB or Wheezing Protocol Budesonide 0.5 mg 04/10/24 19:00 04/15/24 07:14 Budesonide 0.5 Mg/2 Ml Vial (Pulmicort) NEB 05/10/24 18:59 0.5 mg BIDR KERRY Administration Folic Acid 1 mg 04/10/24 09:00 04/15/24 09:12 Folic Acid 1 Mg Tab PO 05/10/24 08:59 1 mg DAILY KERRY Administration Formoterol Fumarate 20 mcg 04/10/24 19:00 04/15/24 07:14 Formoterol 20 Mcg/2 Ml Vial NEB 05/10/24 18:59 20 mcg BIDR KERRY Administration Heparin Sodium (Porcine) 5,000 units 04/09/24 21:03 04/15/24 09:12 Heparin Sod 5,000 Unit/0.5 Ml Vial SQ 05/09/24 21:02 5,000 units Q12 KERRY Administration Promethazine HCl 6.25 mg in 50.25 mls @ 201 mls/hr 04/09/24 21:03 04/14/24 12:51 Phenergan IV 05/09/24 21:02 Infused Q6H PRN Infusion Nausea And Vomiting Piperacillin Sod/Tazobactam Sod 4.5 gm in 100 mls @ 25 mls/hr 04/09/24 22:00 04/15/24 15:59 Zosyn IV 04/16/24 21:59 25 mls/hr Q8H KERRY Administration Protocol Lamotrigine 100 mg 04/09/24 21:00 04/15/24 09:12 Lamotrigine 100 Mg Tab PO 05/09/24 20:59 100 mg BID KERRY Administration Protocol Metoprolol Succinate 12.5 mg 04/14/24 14:30 04/15/24 09:12 Metoprolol Succ 25mg Ext Rel Tab PO 05/14/24 14:29 12.5 mg QAM KERRY Administration Olanzapine- 1 each 04/10/24 21:00 04/14/24 20:39 Samidorphan [Lybalvi EXT 05/10/24 20:59 1 tab ] 20-10 Mg Tablet - HS KERRY Administration Non-Formulary Patient's Own Med - Pantoprazole Sodium 40 mg 04/10/24 09:00 04/15/24 09:12 Pantoprazole 40 Mg Tab PO 05/10/24 08:59 40 mg DAILY KERRY Administration Potassium Chloride 40 meq 04/12/24 09:00 04/15/24 09:12 Potassium Chloride Crtab 20 Meq Tabcr PO 05/12/24 08:59 40 meq QAM KERRY Administration Prednisone 30 mg 04/10/24 09:00 04/15/24 09:12 Prednisone 10 Mg Tablet PO 05/10/24 08:59 30 mg QAM KERRY Administration Sodium Chloride 4 ml 04/10/24 19:00 04/15/24 07:14 Sodium Chlor 7% 4 Ml Neb NEB 05/10/24 18:59 4 ml BIDR KERRY Administration Trimethoprim/Sulfamethoxazole 1 tab 04/13/24 16:00 04/13/24 16:53 Sulfamethoxazole/Trimethoprim Ds 800/160mg Tab PO 05/13/24 15:59 1 tab MoWeFr KERRY Administration (1) Pneumonia Laterality: right Lung location: lower lobe of lung Pneumonia type: due to unspecified organism Qualified Code(s): J18.9 - Pneumonia, unspecified organism
[2024-04-15] MEDS: POTASSIUM CHLORIDE CRTAB 20 MEQ TABCR PO STA (18:42)
[2024-04-16 04:14] VITALS: RESP 18
[2024-04-16 07:52] LABS: BUN Creatinine Ratio 11.5 (10-20); Calcium 8.9 mg/dl (8.6-10.3); Creatinine Clr Calc Pharmacy 71.9 ml/min
[2024-04-16 11:09] VITALS: PULSE 94; TEMP 97.7; O2SAT 95
--- NOTE | 2024-04-16 13:04 | Discharge Summary ---
Discharge Summary Date of Service April 16, 2024 Principal Dx & Hospital Course #1 = Principal Diagnosis (1) Pneumonia: Plan Ms. 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 Patient completed 7 days of zosyn and underwent endoscopy on 04/13 with removal of thick secretions. Patient discharged with nebulizer and supplies sent to pharmacy On day of discharge, patient states she was feeling much improved and denies any new symptoms. 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 No reported fevers. Was noted to be hypoxic on RA upon arrival to ED with O2 sat of 88%. Normally on 3L NC only with exertion prior to arrival. Needed upto 4L at rest at ED. Last chemotherapy back in January 2024 [Alimta, carboplatin and Keytruda every 21 days]. Started Bactrim for PJP prophylaxis on 03/05/24. Currently on daily prednisone therapy given her history of Keytruda-induced pneumonitis. Was started on prednisone 60mg daily initially, now slowly tapered down to 30mg daily since 03/24/24. Has been on daily oral prednisone therapy since 02/21/24. continue w/ OP schedule of prednisone. Repeat CXR 04/12: Minimally improved aeration of subsegmental right lower lobe collapse. New trace right pleural effusion. MRSA neg. Resp biofire +ve for Influenza A, c/w tamiflu x total 5 days. c/w zosyn, likely obstructive vs superimposed bacterial pneumonia Pulm onboard, c/w bactrim, s/p Flexible fiberoptic bronchoscopy with BAL and clearing of airways 04/13 ---> f/u on final bronchoscopic culture reports. so far has been neg. Continue prednisone, PPI, Trelegy inhaler, tamiflu. PRN Duonebs for SOB/wheezing. Utilize ISP as able. Attempt to wean resting O2 requirement as able. c/w budesonide neb, perforomist neb, hypertonic saline neb. d/w pulm, completed 7d atb rx, c/w mucinex, fluttervalve, mucomyst and hypertonic saline nebs at home. Tobacco use disorder: Currently smokes 2 cigarettes/day. Used to smoke 2ppd. Denies need for nicotine patch at this time. Smoking cessation encouraged. Bipolar 1 disorder: Chronic, stable. Continue Lybalvi and lamotrigine. Notes For Next Care Provider Medication Changes From Visit Mucomyst and hypertonic saline nebulized treatments every 12 hours. 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 History obtained from the patient, patient's significant other at bedside and associated chart review. As per above, patient referred to ED via recommendation by her primary oncologist after outpatient chest CT today revealed new atelectasis/consolidation of the RLL suggesting possible aspiration/pneumonia. Outpatient oncologist is Dr. Yogi Muñoz at [facility]. Patient endorsing cough x 3 days productive of yellow sputum. No reported fevers, chills or body aches. Denies any chest pain. No changes to her urinary or bowel habits. Was noted to be hypoxic on RA upon arrival to ED with O2 sat of 88%. Normally on 3L NC only with exertion prior to arrival. Now on 4L NC at time of my examination in the ED and saturating in the mid 90s SpO2 at rest. Patient has however noticed some mild SOB at rest over the past week or so. Not currently on chemotherapy 2/2 Keytruda-induced pneumonitis. Was last on chemotherapy back in January 2024 and was receiving the following regimen: Alimta, carboplatin and Keytruda every 21 days. Started Bactrim for PJP prophylaxis on 03/05/24. Patient endorses taking all of her medications today. Currently on daily prednisone therapy given her history of Keytruda-induced pneumonitis. Was started on prednisone 60mg daily initially, now slowly tapered down to 30mg daily since 03/24/24. Has been on daily oral prednisone therapy since 02/21/24. Used to smoke 2ppd, now down to 2 cigarettes/day. Denies need for nicotine patch at this time. No alcohol abuse. No recreational drug use. Endorses good appetite. Has some chronic, mild BLE weakness since undergoing chemotherapy treatment. No recent falls or trauma. Denies any numbness or tingling in her extremities. Respiratory BioFire panel pending. Nasal MRSA screen pending. ED labs personally reviewed. WBC count 8.29k, Hgb stable at 14.5 and electrolytes WNL. Admission Exam Per Admitting Provider General: WD/WN, vitals as above, NAD, sitting up in bed, very pleasant. A+Ox3. Significant other at bedside. HEENT: Normocephalic, atraumatic. Conjunctivae normal. External ear and nose normal, oropharynx normal. Respiratory: Normal respiratory effort. + RLL rhonchi. + Expiratory wheezing throughout all lung child. On 4L NC. Cardiovascular: Regular rate, regular rhythm, normal peripheral pulses, no BLE edema. Abdomen/GI: Normal bowel sounds, soft, nondistended, nontender to palpation in all quadrants. Extremities/Musculoskeletal: No cyanosis or clubbing, extremities motor strength intact, moves all extremities. Neurologic: No overt focal deficits, CN's II-XI not formally tested but appear grossly intact bilaterally. Discharge Exam Constitutional WD/WN, vitals as above Respiratory few RLL rhonchi, overall improved aeration Cardiovascular RRR, no murmur, no edema Updated Medication List Medication Instructions Recorded Confirmed Type albuterol sulfate 90 mcg/actuation 2 inh inhalation Q6 PRN DYSPNEA OR 02/07/24 04/09/24 History aerosol inhaler WHEEZING fluticasone fur. 200 mcg-umeclid 1 inh inhalation QAM 02/07/24 04/09/24 History 62.5 mcg-vilant 25 mcg inhalat.powder (Trelegy Ellipta) folic acid 1 mg tablet 1 mg PO DAILY 02/07/24 04/09/24 History lamotrigine 100 mg tablet 100 mg PO BID 02/07/24 04/09/24 History olanzapine 20 mg-samidorphan 10 mg 1 tab PO HS 02/07/24 04/09/24 History tablet (Lybalvi) pantoprazole 40 mg tablet,delayed 40 mg PO DAILY 02/07/24 04/09/24 History release ondansetron HCl 8 mg tablet 8 mg PO Q8 PRN Nausea 04/09/24 04/09/24 History prednisone 10 mg tablet 30 mg PO QAM 04/09/24 04/09/24 History prochlorperazine maleate 10 mg 10 mg PO Q6 PRN Nausea 04/09/24 04/09/24 History tablet sulfamethoxazole 800 1 tab PO 3XWK 04/09/24 04/09/24 History mg-trimethoprim 160 mg tablet acetylcysteine 200 mg/mL (20 %) 5 ml inhalation Q12R 30 days #90 mL 04/16/24 Rx solution ipratropium 0.5 mg-albuterol 3 mg 3 ml NEB Q6R PRN shortness of 04/16/24 Rx (2.5 mg base)/3 mL nebulization breath or wheezing 30 days #90 mL soln nebulizer and compressor (Ombra #1 ea 04/16/24 Rx Compressor System) sodium chloride 7 % for 4 ml NEB BIDR #240 mL 04/16/24 Rx nebulization Hospital Stay Data Consultations 04/09/24 16:20 ED Decision to Admit Stat 04/09/24 21:03 Consult Pulmonology Routine Procedures Performed Operation Date: 04/13/24 10:00 Actual Procedures p Bronchoscopy Radiology - [facility] Pending Results Patient Have Any Pending Studies at Discharge: No Discharge Instructions Given to Patient (Per Discharging Provider) You were admitted for evaluation of right lower lung obstruction You underwent endoscopy, which does appear to have resolved your lower airway collapse. You had thick mucus plugging in the RIGHT lower lobe. 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 You completed tamiflu and a course of antibiotics while admitted. Continue your Trelegy inhaler You were prescribed a nebulizer machine. Please continue with Mucomyst and hypertonic saline nebulized treatments every 12 hours. please continue with your flutter valve Please continue your bactrim prophylaxis while on high doses of prednisone Total Time Total Time Spent Total Time Spent (In Minutes): 35
[2024-04-16 14:17] VITALS: BP 116/76
== END 2024-04-16 15:36 | disposition home or self-care (01) | DRG 193 ==
LOC: ED 15:58 → 2S 17:23 → SUATTDRO 17:23 → 2S 20:29
DX: J98.11 Atelectasis; Y92.019 Unspecified place in single-family (private) house as the place of occurrence of the external cause; C77.2 Secondary and unspecified malignant neoplasm of intra-abdominal lymph nodes; K21.9 Gastro-esophageal reflux disease without esophagitis; C77.1 Secondary and unspecified malignant neoplasm of intrathoracic lymph nodes; F17.210 Nicotine dependence, cigarettes, uncomplicated; X58.XXXA Exposure to other specified factors, initial encounter; J15.9 Unspecified bacterial pneumonia; J96.21 Acute and chronic respiratory failure with hypoxia; C7A.8 Other malignant neuroendocrine tumors; T17.990A Other foreign object in respiratory tract, part unspecified in causing asphyxiation, initial encounter; C78.7 Secondary malignant neoplasm of liver and intrahepatic bile duct; J10.08 Influenza due to other identified influenza virus with other specified pneumonia; F31.9 Bipolar disorder, unspecified; J44.0 Chronic obstructive pulmonary disease with (acute) lower respiratory infection